=== PATIENT | female | born 1990 | race Caucasian/White ===

== ENCOUNTER 2017-05-08 15:32 | Emergency (ER) | payer MEDICAID ==
--- NOTE | 2017-05-08 17:14 | RAD REPORT ---
EXAM DESCRIPTION: CT - Head Brain Wo Cont - 05/08/2017 4:57 pm CLINICAL HISTORY: Headache COMPARISON: None. TECHNIQUE: Computed axial tomography of the head was obtained. IV contrast was not requested. All CT scans are performed using dose optimization technique as appropriate and may include automated exposure control or mA/KV adjustment according to patient size. FINDINGS: An intracranial bleed is not seen . The ventricles are normal in caliber. No extra-axial fluid collection is noted. Fluid within the sinuses/ mastoids is not seen. IMPRESSION: No acute intracranial abnormality is seen. If patient's symptoms persist MRI of the bra in would be recommended.
[2017-05-08] MEDS ORDERED: DIPHENHYDRAMINE 50 MG/ML VIAL ONE (17:40)
[2017-05-08] MEDS ORDERED: KETOROLAC 30 MG/ML INJ ONE (17:40)
[2017-05-08] MEDS ORDERED: METOCLOPRAMIDE 10 MG/2mL INJ ONE (17:40)
[2017-05-08 17:41] LABS: Urine Blood NEGATIVE (NEG); Urine Glucose NEGATIVE (NEG); Urine Protein NEGATIVE (NEG); Urine Specific Gravity 1.025 (1.005-1.030)
--- NOTE | 2017-05-08 18:48 | ER ---
Nurse's Notes [facility] Name: Omayra Parra Age: 26 yrs Sex: Female : 1990 Arrival Date: 05/08/2017 Time: 15:36 Bed 18 Private MD: Diagnosis: Migraine Presentation: 05/08 15:52 Presenting complaint: Patient states: Headache, N/V since this AM. Transition of care: aj patient was not received from another setting of care. Onset of symptoms was May 08, 2017. Care prior to arrival: None. 15:52 Method Of Arrival: Ambulatory 15:52 Acuity: GAYE 4 Triage Assessment: 15:54 General: Appears in no apparent distress. comfortable, Behavior is calm, cooperative, aj appropriate for age. Pain: Complains of pain in face and scalp Pain currently is 10 out of 10 on a pain scale. Neuro: Level of Consciousness is awake, alert, obeys commands, Oriented to person, place, time, situation, Reports headache. Respiratory: Airway is patent Respiratory effort is even, unlabored, Respiratory pattern is regular, symmetrical. GI: Reports nausea, vomiting. Derm: Skin is intact, is healthy with good turgor, Skin is pink, warm \T\ dry. normal. 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 - Social history:: Smoking status: Patient/guardian denies using tobacco. Screenin:02 Abuse screen: Denies threats or abuse. Denies injuries from another. Nutritional ph screening: No deficits noted. Tuberculosis screening: No symptoms or risk factors identified. Fall Risk None identified. Assessment: 16:30 General: Appears in no apparent distress. uncomfortable, obese, Behavior is calm, ph cooperative, appropriate for age, Denies fever, feeling ill. Pain: Complains of pain in top of head, forehead, right tenriism and left tenriism Pain currently is 10 out of 10 on a pain scale. Neuro: Level of Consciousness is awake, alert, obeys commands, Oriented to person, place, time, situation, Reports dizziness, headache. Cardiovascular: Capillary refill < 3 seconds Patient's skin is warm and dry. Respiratory: Airway is patent Respiratory effort is even, unlabored. GI: Abdomen is round non-distended, Reports nausea, Patient currently denies abdominal pain, diarrhea, vomiting. Derm: Skin is intact, is healthy with good turgor, Skin is pink, warm \T\ dry. Musculoskeletal: Circulation, motion, and sensation intact. Range of motion: intact in all extremities. 18:00 Reassessment: Patient appears in no apparent distress at this time. Patient and/or ph family updated on plan of care and expected duration. Pain level reassessed. Patient is alert, oriented x 3, equal unlabored respirations, skin warm/dry/pink. 19:12 Reassessment: Patient appears in no apparent distress at this time. Patient and/or ph family updated on plan of care and expected duration. Pain level reassessed. Patient is alert, oriented x 3, equal unlabored respirations, skin warm/dry/pink. Pt reports that pain has decreased to 4/10, denies nausea, discharged home. Vital Signs: 15:54 BP 142 / 95; Pulse 86; Resp 17; Temp 97.4; Pulse Ox 98% on R/A; Weight 108.86 kg; aj Height 5 ft. 2 in. (157.48 cm); Pain 10/10; 17:50 BP 136 / 87; Pulse 84; Resp 18; Pulse Ox 99% on R/A; Pain 10/10; ph 19:12 BP 127 / 87; Pulse 78; Resp 18; Temp 98.2; Pulse Ox 99% on R/A; ph 15:54 Body Mass Index 43.90 (108.86 kg, 157.48 cm) ED Course: 15:36 Patient arrived in ED. mr 15:53 Triage completed. aj 15:54 Arm band placed on right wrist. Patient placed in waiting room, Patient notified of wait time. 16:14 Marilou Christie, SUSAN is Primary Nurse. ph 16:20 Jayson Meehan NP is PHCP. pm1 16:20 Jasbir Coleman MD is Attending Physician. pm1 16:54 CT completed. Patient tolerated procedure well. Patient moved to CT via wheelchair. vr Patient moved back from CT. 16:57 CT Head Brain wo Cont In Process Unspecified. EDMS 17:35 Inserted saline lock: 20 gauge in left antecubital area, using aseptic technique. ss 18:02 No provider procedures requiring assistance completed. ph 18:03 Patient has correct armband on for positive identification. Bed in low position. Call ph light in reach. Side rails up X 1. Pulse ox on. NIBP on. Door closed. Lights dimmed. Warm blanket given. 19:13 IV discontinued, intact, bleeding controlled, No redness/swelling at site. Pressure ph dressing applied. Administered Medications: 07:48 Drug: TORadol 30 mg Route: IVP; Site: left antecubital; ph 19:11 Follow up: Response: No adverse reaction; Pain is decreased ph 17:45 Drug: Reglan 10 mg Route: IVP; Site: left antecubital; ph 19:11 Follow up: Response: No adverse reaction; Pain is decreased ph 17:47 Drug: Benadryl 25 mg Route: IVP; Site: left antecubital; ph 19:11 Follow up: Response: No adverse reaction; Pain is decreased ph Outcome: 18:47 Discharge ordered by MD. pm1 19:13 Discharged to home ambulatory. ph 19:13 Condition: good 19:13 Discharge instructions given to patient, Instructed on discharge instructions, follow up and referral plans. medication usage, Demonstrated understanding of instructions, follow-up care, medications, Prescriptions given X 2. 19:13 Patient left the ED. ph Signatures: Dispatcher [employer] EDMS Mary Allison RN RN aj Rivera, Maria mr Smirch, Shelby, RN RN ss Davis, Victoria vr Hall, Patricia, RN RN ph Marinas, Patrick, BENITO LEG MAN pm1 Corrections: (The following items were deleted from the chart) 17:59 07:45 Reglan 10 mg IVP in left antecubital ph ph
--- NOTE | 2017-05-08 18:48 | EDPHYS ---
Physician Documentation [facility] Name: Omayra Parra Age: 26 yrs Sex: Female : 1990 Arrival Date: 05/08/2017 Time: 15:36 Bed 18 Private MD: ED Physician Jasbir Coleman HPI: 05/08 18:00 This 26 yrs old Female presents to ER via Ambulatory with complaints of pm1 Nausea, Decreased Appetite, Headache. 18:00 The patient complains of pain to the forehead. The patient describes the headache as pm1 aching, constant. Onset: The symptoms/episode began/occurred yesterday. Associated signs and symptoms: Pertinent positives: nausea, vomiting, Pertinent negatives: fever, neck stiffness, paresthesias, Photophobia sinus congestion, sinus tenderness, weakness. Severity of symptoms: in the emergency department the pain is actually worse. Headache History: The patient has had previous headaches and this one is different than previous episodes. The symptoms are alleviated by nothing. the symptoms are aggravated by nothing. The patient has not recently seen a physician. Patient with migraine headache that is different than her prior migraines. Usually she can sleep them off with ibuprofen. Patient also complaining of decreased appetite due to nausea and vomiting with headache. Also reports generalized body aches. 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 - Social history:: Smoking status: Patient/guardian denies using tobacco. ROS: 18:00 Constitutional: Negative for fever, chills, and weight loss, Eyes: Negative for injury, pm1 pain, redness, and discharge, ENT: Negative for injury, pain, and discharge, Neck: Negative for injury, pain, and swelling, Cardiovascular: Negative for chest pain, palpitations, and edema, Respiratory: Negative for shortness of breath, cough, wheezing, and pleuritic chest pain, Back: Negative for injury and pain. 18:00 : Negative for injury, bleeding, discharge, and swelling, MS/Extremity: Negative for injury and deformity, Skin: Negative for injury, rash, and discoloration. 18:00 Abdomen/GI: Positive for nausea and vomiting, Negative for abdominal pain, diarrhea. 18:00 Neuro: Positive for headache, Negative for numbness, tingling, weakness. Exam: 18:00 Constitutional: This is a well developed, well nourished patient who is awake, alert, pm1 and in no acute distress. Head/Face: Normocephalic, atraumatic. Eyes: Pupils equal round and reactive to light, extra-ocular motions intact. Lids and lashes normal. Conjunctiva and sclera are non-icteric and not injected. Cornea within normal limits. Periorbital areas with no swelling, redness, or edema. ENT: Nares patent. No nasal discharge, no septal abnormalities noted. Tympanic membranes are normal and external auditory canals are clear. Oropharynx with no redness, swelling, or masses, exudates, or evidence of obstruction, uvula midline. Mucous membranes moist. Neck: Trachea midline, no thyromegaly or masses palpated, and no cervical lymphadenopathy. Supple, full range of motion without nuchal rigidity, or vertebral point tenderness. No Meningismus. Chest/axilla: Normal chest wall appearance and motion. Nontender with no deformity. No lesions are appreciated. Cardiovascular: Regular rate and rhythm with a normal S1 and S2. No gallops, murmurs, or rubs. Normal PMI, no JVD. No pulse deficits. Respiratory: Lungs have equal breath sounds bilaterally, clear to auscultation and percussion. No rales, rhonchi or wheezes noted. No increased work of breathing, no retractions or nasal flaring. Abdomen/GI: Soft, non-tender, with normal bowel sounds. No distension or tympany. No guarding or rebound. No evidence of tenderness throughout. Back: No spinal tenderness. No costovertebral tenderness. Full range of motion. Skin: Warm, dry with normal turgor. Normal color with no rashes, no lesions, and no evidence of cellulitis. MS/ Extremity: Pulses equal, no cyanosis. Neurovascular intact. Full, normal range of motion. 18:00 Neuro: Orientation: is normal, Mentation: is normal, Cranial nerves: CN II- XII are normal as tested, Cerebellar function: normal finger to nose testing, Motor: moves all fours, strength is normal, strength is 5/5 in all extremities, Sensation: is normal, no obvious gross deficits. Vital Signs: 15:54 BP 142 / 95; Pulse 86; Resp 17; Temp 97.4; Pulse Ox 98% on R/A; Weight 108.86 kg; aj Height 5 ft. 2 in. (157.48 cm); Pain 10/10; 17:50 BP 136 / 87; Pulse 84; Resp 18; Pulse Ox 99% on R/A; Pain 10/10; ph 19:12 BP 127 / 87; Pulse 78; Resp 18; Temp 98.2; Pulse Ox 99% on R/A; ph 15:54 Body Mass Index 43.90 (108.86 kg, 157.48 cm) aj MDM: 16:20 Patient medically screened. pm1 18:46 Data reviewed: vital signs. Data interpreted: Pulse oximetry: on room air is 99 %. pm1 Interpretation: normal. Counseling: I had a detailed discussion with the patient and/or guardian regarding: the historical points, exam findings, and any diagnostic results supporting the discharge/admit diagnosis, lab results, radiology results, the need for outpatient follow up, to return to the emergency department if symptoms worsen or persist or if there are any questions or concerns that arise at home. 05/08 16:47 Order name: Flu; Complete Time: 18:21 pm1 05/08 16:47 Order name: Strep; Complete Time: 18:21 pm1 05/08 16:47 Order name: CT Head Brain wo Cont; Complete Time: 17:19 pm1 05/08 17:32 Order name: Urine Dipstick--Ancillary (enter results); Complete Time: 18:21 bd 05/08 17:32 Order name: Urine --Ancillary (enter results); Complete Time: 18:21 bd 05/08 17:38 Order name: Throat Culture EDMS 05/08 16:47 Order name: Urine Dipstick-Ancillary (obtain specimen); Complete Time: 17:43 pm1 05/08 16:47 Order name: Urine Test (obtain specimen); Complete Time: 17:43 pm1 05/08 16:47 Order name: IV Saline Lock; Complete Time: 17:43 pm1 Administered Medications: 07:48 Drug: TORadol 30 mg Route: IVP; Site: left antecubital; ph 19:11 Follow up: Response: No adverse reaction; Pain is decreased ph 17:45 Drug: Reglan 10 mg Route: IVP; Site: left antecubital; ph 19:11 Follow up: Response: No adverse reaction; Pain is decreased ph 17:47 Drug: Benadryl 25 mg Route: IVP; Site: left antecubital; ph 19:11 Follow up: Response: No adverse reaction; Pain is decreased ph Disposition: 05/09 07:39 Co-signature as Attending Physician, Jasbir Coleman MD I agree with the assessment and [facility] plan of care. Disposition: 05/08/17 18:47 Discharged to Home. Impression: Migraine. - Condition is Stable. - Discharge Instructions: Migraine Headache. - Prescriptions for Fiorinal 50- 325-40 mg Oral Capsule - take 1 capsule by ORAL route every 4 hours As needed - not to exceed 6 capsules per day; 20 capsule. Zofran 4 mg Oral Tablet - take 1 tablet by ORAL route every 8 hours As needed; 20 tablet. - Medication Reconciliation Form, Thank You Letter, Prescription Opioid Use form. - Follow up: Emergency Department; When: As needed; Reason: Worsening of condition. Follow up: Private Physician; When: 2 - 3 days; Reason: Recheck today's complaints, Continuance of care, Re-evaluation by your physician. - Problem is new. - Symptoms have improved. Signatures: Dispatcher [employer] Mary Kenney RN RN aj Anderson, Corey, MD MD cha Hall, Patricia, RN RN ph Marinas, Patrick, BENITO INTERNATIONAL TAX MANAGER pm1
[2017-05-08 19:21] VITALS: O2SAT 99
[2017-05-08 19:22] VITALS: BP 127/87; TEMP 98.2
== END 2017-05-08 19:13 | disposition home or self-care (01) ==
LOC: ER 15:32
DX: G43.909 Migraine, unspecified, not intractable, without status migrainosus (principal)
CPT/HCPCS: 70450; 81003; 81025; 87070; 87081; 87804; 96374; 96375; 99284; J2765

== ENCOUNTER 2017-06-06 19:01 | Emergency (ER) | payer MEDICAID ==
--- NOTE | 2017-06-06 20:48 | ER ---
Nurse's Notes [facility] Name: Omayra Parra Age: 26 yrs Sex: Female : 1990 Arrival Date: 06/06/2017 Time: 19:03 Bed 9 Private MD: Abdullahi Guan E Diagnosis: Viral infection, unspecified Presentation: 06/06 19:05 Presenting complaint: Patient states: Nausea that started this AM. Transition of care: aj patient was not received from another setting of care. Onset of symptoms was June 06, 2017. Initial Sepsis Screen: Does the patient meet any 2 criteria? No. Patient's initial sepsis screen is negative. Does the patient have a suspected source of infection? No. Patient's initial sepsis screen is negative. Care prior to arrival: None. 19:05 Method Of Arrival: Ambulatory 19:05 Acuity: GAYE 4 Triage Assessment: 19:07 General: Appears in no apparent distress. comfortable, Behavior is calm, cooperative, aj appropriate for age. Pain: Complains of pain in umbilical area Pain currently is 8 out of 10 on a pain scale. Neuro: Level of Consciousness is awake, alert, obeys commands, Oriented to person, place, time, situation, Appropriate for age. Respiratory: Airway is patent Trachea midline Respiratory effort is even, unlabored, Respiratory pattern is regular, symmetrical. GI: Reports upper abdominal pain, nausea. Derm: Skin is intact, is healthy with good turgor, Skin is pink, warm \T\ dry. normal. 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 - Social history:: Smoking status: Patient/guardian denies using tobacco. Screenin:29 Abuse screen: Denies threats or abuse. Denies injuries from another. Nutritional aa1 screening: No deficits noted. Tuberculosis screening: No symptoms or risk factors identified. Fall Risk None identified. Assessment: 20:29 General: Appears in no apparent distress. comfortable, Behavior is calm, cooperative, aa1 appropriate for age. Pain: Denies pain. Neuro: Level of Consciousness is awake, alert, obeys commands, Oriented to person, place, time, situation, Moves all extremities. Full function Gait is steady, Speech is normal. Respiratory: Airway is patent Respiratory effort is even, unlabored, Respiratory pattern is regular, symmetrical. GI: Abdomen is obese, Abd is soft and non tender X 4 quads. Reports nausea, Patient currently denies constipation, diarrhea, vomiting. : No signs and/or symptoms were reported regarding the genitourinary system. EENT: No signs and/or symptoms were reported regarding the EENT system. Derm: Skin is intact, is healthy with good turgor, Skin is pink, warm \T\ dry. Musculoskeletal: Circulation, motion, and sensation intact. Capillary refill < 3 seconds. 21:05 Reassessment: Patient appears in no apparent distress at this time. Patient is alert, aa1 oriented x 3, equal unlabored respirations, skin warm/dry/pink. Discussed d/c \T\ f/u instructions with pt; denies questions or concerns at this time. Vital Signs: 19:07 BP 141 / 84; Pulse 90; Resp 16; Temp 98.8; Pulse Ox 99% on R/A; Weight 113.4 kg; Height aj 5 ft. 2 in. (157.48 cm); Pain 8/10; 20:29 BP 122 / 77; Pulse 82; Resp 18; Pulse Ox 100% on R/A; aa1 21:05 BP 123 / 75; Pulse 79; Resp 16; Temp 98.7; Pulse Ox 100% on R/A; Pain 0/10; aa1 19:07 Body Mass Index 45.73 (113.40 kg, 157.48 cm) aj ED Course: 19:03 Patient arrived in ED. mr 19:04 Fidel Willams MD is Private Physician. mr 19:04 Abdullahi Guan MD is Private Physician. mr 19:06 Triage completed. aj 19:07 Arm band placed on left wrist. Patient placed in waiting room, Patient notified of wait aj time. 20:20 Sparkle Salas FNP-C is [facility]. snw 20:20 Jasbir Coleman MD is Attending Physician. snw 20:29 Mayes, Domi, RN is Primary Nurse. aa1 20:29 Patient has correct armband on for positive identification. Bed in low position. Call aa1 light in reach. Pulse ox on. NIBP on. Warm blanket given. 20: Urine collected: clean catch specimen, Strep swab sent to lab. aa1 20:47 Abdullahi Guan MD is Referral Physician. snw 21:05 No provider procedures requiring assistance completed. Patient did not have IV access aa1 during this emergency room visit. Administered Medications: :04 Drug: Zofran 4 mg Route: PO; aa1 21:05 Follow up: Response: Medication administered at discharge. aa1 Outcome: :47 Discharge ordered by . snw 21: Discharged to home ambulatory. aa1 21:05 Condition: good 21: Discharge instructions given to patient, Instructed on discharge instructions, follow up and referral plans. Demonstrated understanding of instructions, follow-up care, medications, Prescriptions given X 3. 21:06 Patient left the ED. aa1 Signatures: Domi Orosco RN SUSAN aa1 Mary Allison RN RN aj Therrien, Shelly, GUILLOTINE TRIMMER-C GUILLOTINE TRIMMER-Csnw Shraddha Schmid mr
--- NOTE | 2017-06-06 20:48 | EDPHYS ---
Physician Documentation [facility] Name: Omayra Parra Age: 26 yrs Sex: Female : 1990 Arrival Date: 06/06/2017 Time: 19:03 Bed 9 Private MD: Abdullahi Guan E ED Physician Jasbir Coleman HPI: 06/06 20:50 This 26 yrs old Female presents to ER via Ambulatory with complaints of snw Nausea, Headache. 20:50 The patient presents to the emergency department with nausea, that is moderate. Onset: snw The symptoms/episode began/occurred 2 day(s) ago, and became persistent. Possible causes: unknown. The symptoms are aggravated by nothing. Associated signs and symptoms: Pertinent positives: nausea, headache, congestion. Severity of symptoms: At their worst the symptoms were moderate. It is unknown whether or not the patient has had similar symptoms in the past. It is unknown whether or not the patient has recently seen a physician. 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 - Social history:: Smoking status: Patient/guardian denies using tobacco. ROS: 20:49 Eyes: Negative for injury, pain, redness, and discharge, ENT: Negative for injury, snw pain, and discharge, Neck: Negative for injury, pain, and swelling, Cardiovascular: Negative for chest pain, palpitations, and edema, Respiratory: Negative for shortness of breath, cough, wheezing, and pleuritic chest pain, Abdomen/GI: Negative for abdominal pain, vomiting, diarrhea, and constipation, + nausea Back: Negative for injury and pain, : Negative for injury, bleeding, discharge, and swelling, MS/Extremity: Negative for injury and deformity, Skin: Negative for injury, rash, and discoloration. 20:49 Constitutional: Positive for body aches, fatigue, malaise, poor PO intake. 20:49 Neuro: Positive for headache. Exam: 20:48 Constitutional: This is a well developed, well nourished patient who is awake, alert, snw and in no acute distress. Head/Face: Normocephalic, atraumatic. Eyes: Pupils equal round and reactive to light, extra-ocular motions intact. Lids and lashes normal. Conjunctiva and sclera are non-icteric and not injected. Cornea within normal limits. Periorbital areas with no swelling, redness, or edema. ENT: Nares patent. No nasal discharge, no septal abnormalities noted. Tympanic membranes are normal and external auditory canals are clear. Oropharynx with no redness, swelling, or masses, exudates, or evidence of obstruction, uvula midline. Mucous membranes moist. Neck: Trachea midline, no thyromegaly or masses palpated, and no cervical lymphadenopathy. Supple, full range of motion without nuchal rigidity, or vertebral point tenderness. No Meningismus. Chest/axilla: Normal chest wall appearance and motion. Nontender with no deformity. No lesions are appreciated. Cardiovascular: Regular rate and rhythm with a normal S1 and S2. No gallops, murmurs, or rubs. Normal PMI, no JVD. No pulse deficits. Respiratory: Lungs have equal breath sounds bilaterally, clear to auscultation and percussion. No rales, rhonchi or wheezes noted. No increased work of breathing, no retractions or nasal flaring. 20:48 Back: No spinal tenderness. No costovertebral tenderness. Full range of motion. MS/ Extremity: Pulses equal, no cyanosis. Neurovascular intact. Full, normal range of motion. Neuro: Awake and alert, GCS 15, oriented to person, place, time, and situation. Cranial nerves II-XII grossly intact. Motor strength 5/5 in all extremities. Sensory grossly intact. Cerebellar exam normal. Normal gait. 20:48 Abdomen/GI: Inspection: obese Bowel sounds: hyperactive, Palpation: abdomen is soft and non-tender. 20:48 Skin: Appearance: Color: pale. Vital Signs: 19:07 BP 141 / 84; Pulse 90; Resp 16; Temp 98.8; Pulse Ox 99% on R/A; Weight 113.4 kg; Height aj 5 ft. 2 in. (157.48 cm); Pain 8/10; 20:29 BP 122 / 77; Pulse 82; Resp 18; Pulse Ox 100% on R/A; aa1 21:05 BP 123 / 75; Pulse 79; Resp 16; Temp 98.7; Pulse Ox 100% on R/A; Pain 0/10; aa1 19:07 Body Mass Index 45.73 (113.40 kg, 157.48 cm) aj MDM: 20:25 Patient medically screened. snw 20:49 Data reviewed: vital signs, nurses notes. Data interpreted: Pulse oximetry: on room air snw is 100 %. Interpretation: normal. Counseling: I had a detailed discussion with the patient and/or guardian regarding: the historical points, exam findings, and any diagnostic results supporting the discharge/admit diagnosis, the need for outpatient follow up, to return to the emergency department if symptoms worsen or persist or if there are any questions or concerns that arise at home. Special discussion: Based on the history and exam findings, there is no indication for further emergent testing or inpatient evaluation. I discussed with the patient/guardian the need to see the primary care provider for further evaluation of the symptoms. 06/06 19:34 Order name: Urine Dipstick--Ancillary (enter results) [facility] 06/06 19:34 Order name: Urine --Ancillary (enter results) [facility] 06/06 19:34 Order name: Strep; Complete Time: 20:46 snw 06/06 20:45 Order name: Throat Culture EDMS Administered Medications: 21:04 Drug: Zofran 4 mg Route: PO; aa1 21:05 Follow up: Response: Medication administered at discharge. aa1 Disposition: 06/07 08:14 Co-signature as Attending Physician, Jasbir Coleman MD I agree with the assessment and ren plan of care. Disposition: 06/06/17 20:47 Discharged to Home. Impression: Viral infection, unspecified. - Condition is Stable. - Discharge Instructions: Fever, Adult, Viral Infections, Rehydration, Adult. - Prescriptions for Zofran 4 mg Oral Tablet - take 1 tablet by ORAL route every 12 hours As needed; 6 tablet. Diclofenac Sodium 75 mg Oral Tablet Sustained Release - take 1 tablet by ORAL route 2 times per day; 30 tablet. orphenadrine citrate 100 mg Oral Tablet Sustained Release - take 1 tablet by ORAL route 2 times per day As needed; 20 tablet. - Work release form, Medication Reconciliation Form, Thank You Letter, Antibiotic Education, Prescription Opioid Use form. - Follow up: Abdullahi Guan MD; When: 1 week; Reason: Recheck today's complaints, Continuance of care, Re-evaluation by your physician. Follow up: Emergency Department; When: As needed; Reason: Worsening of condition. Signatures: Dispatcher [employer] EDMS Domi Orosco RN RN aa1 Mary Allison RN RN aj Anderson, Corey, MD MD cha Therrien, Shelly, [employer] Corrections: (The following items were deleted from the chart) 06/06 21:06 20:47 06/06/2017 20:47 Discharged to Home. Impression: Viral infection, unspecified. aa1 Condition is Stable. Forms are Medication Reconciliation Form, Thank You Letter, Antibiotic Education, Prescription Opioid Use. Follow up: Abdullahi Guan; When: 1 week; Reason: Recheck today's complaints, Continuance of care, Re-evaluation by your physician. Follow up: Emergency Department; When: As needed; Reason: Worsening of condition. snw
[2017-06-06] MEDS ORDERED: ONDANSETRON 4 MG (ODT) TAB ONE (21:00)
[2017-06-06 21:23] VITALS: O2SAT 100
[2017-06-06 21:25] VITALS: BP 123/75; TEMP 98.7
[2017-06-06 22:25] LABS: Urine Blood TRACE (NEG); Urine Glucose NEGATIVE (NEG); Urine Protein NEGATIVE (NEG); Urine Specific Gravity >1.030 (1.005-1.030); Urine pH 5.5 (5.0-7.0)
== END 2017-06-06 21:06 | disposition home or self-care (01) ==
LOC: ER 19:01
DX: B34.9 Viral infection, unspecified (principal)
CPT/HCPCS: 81003; 81025; 87070; 87081; 99284

== ENCOUNTER 2017-07-02 12:47 | Emergency (ER) | payer MEDICAID ==
[2017-07-02] MEDS ORDERED: FAMOTIDINE 20 MG TAB ONE (13:53)
[2017-07-02] MEDS ORDERED: ONDANSETRON 4 MG (ODT) TAB ONE (13:53)
--- NOTE | 2017-07-02 15:30 | EDPHYS ---
Physician Documentation [facility] Name: Omayra Parra Age: 26 yrs Sex: Female : 1990 Arrival Date: 07/02/2017 Time: 12:50 Bed 26 Private MD: Abdullahi Guan E ED Physician Vick Segura HPI: 07/02 16:50 This 26 yrs old Female presents to ER via Ambulatory with complaints of gs Nausea, Decreased Appetite. 16:50 The patient presents to the emergency department with nausea, that is mild. Onset: The gs symptoms/episode began/occurred this morning. Possible causes: unknown. The symptoms are aggravated by nothing. The symptoms are alleviated by nothing. Associated signs and symptoms: Pertinent positives: bodyaches, low grade fever, flu symptoms. Severity of symptoms: At their worst the symptoms were mild in the emergency department the symptoms are unchanged. The patient has experienced similar episodes in the past, a few times. 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 - Social history:: Smoking status: Patient/guardian denies using tobacco, the patient reports quitting approximately .5 years ago. - Ebola Screening: : Patient denies exposure to infectious person Patient denies travel to an Ebola-affected area in the 21 days before illness onset. ROS: 16:50 All other systems are negative. gs Exam: 16:50 Head/Face: Normocephalic, atraumatic. Eyes: Pupils equal round and reactive to light, gs extra-ocular motions intact. Lids and lashes normal. Conjunctiva and sclera are non-icteric and not injected. Cornea within normal limits. Periorbital areas with no swelling, redness, or edema. ENT: Nares patent. No nasal discharge, no septal abnormalities noted. Tympanic membranes are normal and external auditory canals are clear. Oropharynx with no redness, swelling, or masses, exudates, or evidence of obstruction, uvula midline. Mucous membranes moist. Neck: Trachea midline, no thyromegaly or masses palpated, and no cervical lymphadenopathy. Supple, full range of motion without nuchal rigidity, or vertebral point tenderness. No Meningismus. Chest/axilla: Normal chest wall appearance and motion. Nontender with no deformity. No lesions are appreciated. Cardiovascular: Regular rate and rhythm with a normal S1 and S2. No gallops, murmurs, or rubs. Normal PMI, no JVD. No pulse deficits. Respiratory: Lungs have equal breath sounds bilaterally, clear to auscultation and percussion. No rales, rhonchi or wheezes noted. No increased work of breathing, no retractions or nasal flaring. Abdomen/GI: Soft, non-tender, with normal bowel sounds. No distension or tympany. No guarding or rebound. No evidence of tenderness throughout. Back: No spinal tenderness. No costovertebral tenderness. Full range of motion. Skin: Warm, dry with normal turgor. Normal color with no rashes, no lesions, and no evidence of cellulitis. MS/ Extremity: Pulses equal, no cyanosis. Neurovascular intact. Full, normal range of motion. Neuro: Awake and alert, GCS 15, oriented to person, place, time, and situation. Cranial nerves II-XII grossly intact. Motor strength 5/5 in all extremities. Sensory grossly intact. Cerebellar exam normal. Normal gait. 16:50 Constitutional: The patient appears alert, awake. Vital Signs: 13:24 BP 127 / 74; Pulse 95; Resp 15; Temp 98.4(O); Pulse Ox 100% on R/A; Weight 113.4 kg; ss Height 5 ft. 2 in. (157.48 cm); Pain 0/10; 16:01 BP 115 / 85; Pulse 97; Resp 17; Pulse Ox 99% on R/A; kr2 13:24 Body Mass Index 45.73 (113.40 kg, 157.48 cm) MDM: 13:39 Patient medically screened. gs 16:50 Differential diagnosis: , uti, flu. Data reviewed: vital signs, nurses notes. gs Response to treatment: the patient's symptoms have markedly improved after treatment, and as a result, I will discharge patient. 07/02 13:41 Order name: Urine Microscopic Only; Complete Time: 16:53 gs 07/02 15:31 Order name: Urine Dipstick--Ancillary (enter results); Complete Time: 16:53 07/02 15:31 Order name: Urine --Ancillary (enter results); Complete Time: 16:53 07/02 13:41 Order name: Urine Dipstick-Ancillary (obtain specimen); Complete Time: 13:51 07/02 13:41 Order name: Urine Test (obtain specimen); Complete Time: 13:51 Administered Medications: 13:54 Drug: Zofran 4 mg Route: PO; kr2 15:59 Follow up: Response: No adverse reaction kr2 13:54 Drug: Pepcid 20 mg Route: PO; kr2 15:59 Follow up: Response: No adverse reaction kr2 16:00 CANCELLED (ordered in error): Tylenol 650 mg PO once kr2 Disposition: 07/02/17 15:29 Discharged to Home. Impression: Nausea and vomiting. - Condition is Stable. - Discharge Instructions: Viral Infections, Nausea and Vomiting, [id number]. - Prescriptions for Pepcid 20 mg Oral Tablet - take 1 tablet by ORAL route every 12 hours for 10 days; 20 tablet. Zofran 4 mg Oral Tablet - take 1 tablet by ORAL route every 12 hours As needed; 6 tablet. - Medication Reconciliation Form, Thank You Letter, Antibiotic Education, Prescription Opioid Use, Work release form form. - Follow up: Private Physician; When: 2 - 3 days; Reason: Re-evaluation by your physician. Signatures: Dispatcher [employer] EDSC Rachell Rodriguez RN RN Vick Segura MD MD Elisha Murray RN RN kr2 Corrections: (The following items were deleted from the chart) 16:00 15:47 Tylenol 650 mg PO once ordered. kr2 16:03 15:29 07/02/2017 15:29 Discharged to Home. Impression: Nausea and vomiting. Condition kr2 is Stable. Forms are Medication Reconciliation Form, Thank You Letter, Antibiotic Education, Prescription Opioid Use. Follow up: Private Physician; When: 2 - 3 days; Reason: Re-evaluation by your physician.
--- NOTE | 2017-07-02 15:30 | ER ---
Nurse's Notes [facility] Name: Omayra Parra Age: 26 yrs Sex: Female : 1990 Arrival Date: 07/02/2017 Time: 12:50 Bed 26 Private MD: Abdullahi Guan E Diagnosis: Nausea and vomiting Presentation: 07/02 13:21 Presenting complaint: Patient states: nausea and fatigue that began yesterday, is much ss worse today. Denies pain. Transition of care: patient was not received from another setting of care. Onset of symptoms was July 01, 2017. Risk Assessment: Do you want to hurt yourself or someone else? Patient reports no desire to harm self or others. Initial Sepsis Screen: Does the patient meet any 2 criteria? No. Patient's initial sepsis screen is negative. Does the patient have a suspected source of infection? No. Patient's initial sepsis screen is negative. Care prior to arrival: None. 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 - Social history:: Smoking status: Patient/guardian denies using tobacco, the patient reports quitting approximately .5 years ago. - Ebola Screening: : Patient denies exposure to infectious person Patient denies travel to an Ebola-affected area in the 21 days before illness onset. Screenin:48 Abuse screen: Denies threats or abuse. Denies injuries from another. Nutritional kr2 screening: No deficits noted. Tuberculosis screening: No symptoms or risk factors identified. Fall Risk None identified. Assessment: 13:30 General: Appears in no apparent distress. uncomfortable, well groomed, well developed, kr2 well nourished, Behavior is calm, cooperative, appropriate for age. Pain: Denies pain. Neuro: Level of Consciousness is awake, alert, obeys commands. Cardiovascular: Capillary refill < 3 seconds in bilateral fingers Patient's skin is warm and dry. Respiratory: Airway is patent Respiratory effort is even, unlabored, Respiratory pattern is regular, symmetrical. GI: Abdomen is flat, non-distended, Bowel sounds present X 4 quads. Abd is soft and non tender X 4 quads. Reports nausea. : Urine is clear. EENT: Oral mucosa is moist. Derm: Skin is intact, is healthy with good turgor, Skin is pink, warm \T\ dry. Musculoskeletal: Circulation, motion, and sensation intact. 14:30 Reassessment: Patient appears in no apparent distress at this time. Patient and/or kr2 family updated on plan of care and expected duration. Pain level reassessed. Patient is alert, oriented x 3, equal unlabored respirations, skin warm/dry/pink. Patient denies pain at this time. 15:30 Reassessment: Patient appears in no apparent distress at this time. Patient and/or kr2 family updated on plan of care and expected duration. Pain level reassessed. Patient is alert, oriented x 3, equal unlabored respirations, skin warm/dry/pink. Patient denies pain at this time. Vital Signs: 13:24 BP 127 / 74; Pulse 95; Resp 15; Temp 98.4(O); Pulse Ox 100% on R/A; Weight 113.4 kg; ss Height 5 ft. 2 in. (157.48 cm); Pain 0/10; 16:01 BP 115 / 85; Pulse 97; Resp 17; Pulse Ox 99% on R/A; kr2 13:24 Body Mass Index 45.73 (113.40 kg, 157.48 cm) ED Course: 12:50 Patient arrived in ED. mr 12:50 Abdullahi Guan MD is Private Physician. mr 13:22 Triage completed. ss 13:24 Arm band placed on right wrist. ss 13:30 Vick Segura MD is Attending Physician. gs 13:43 Elisha Murray, SUSAN is Primary Nurse. kr2 14:48 Patient has correct armband on for positive identification. Bed in low position. Call kr2 light in reach. Side rails up X 1. Pulse ox on. NIBP on. Door closed. Warm blanket given. Head of bed elevated. 16:02 No provider procedures requiring assistance completed. Patient did not have IV access kr2 during this emergency room visit. Administered Medications: 13:54 Drug: Zofran 4 mg Route: PO; kr2 15:59 Follow up: Response: No adverse reaction kr2 13:54 Drug: Pepcid 20 mg Route: PO; kr2 15:59 Follow up: Response: No adverse reaction kr2 16:00 CANCELLED (ordered in error): Tylenol 650 mg PO once kr2 Outcome: 15:29 Discharge ordered by . 16:02 Discharged to home via wheelchair, with family. kr2 16:02 Condition: good 16:02 Discharge instructions given to patient, family, Instructed on discharge instructions, follow up and referral plans. medication usage, Demonstrated understanding of instructions, follow-up care, medications, Prescriptions given X 2. 16:03 Patient left the ED. kr2 Signatures: Shraddha Schmid Shelby, RN RN Vick Segura MD MD gs Reaves, Karey, RN RN kr2
[2017-07-02 15:43] LABS: Urine Blood NEGATIVE (NEG); Urine Glucose NEGATIVE (NEG); Urine Protein TRACE (NEG); Urine pH 5.5 (5.0-7.0)
[2017-07-02 15:55] LABS: Urine Amorphous Sediment 3+ /HPF (NONE SEEN); Urine Bacteria <20 /HPF (<20); Urine Culture Reflex Order NOT NEEDED; Urine Mucus 1+ /HPF (NONE SEEN); Urine RBC <5 /HPF (NONE SEEN)
[2017-07-02 16:14] VITALS: TEMP 98.4
[2017-07-02 16:15] VITALS: BP 115/85; O2SAT 99
== END 2017-07-02 16:03 | disposition home or self-care (01) ==
LOC: ER 12:47
DX: R11.2 Nausea with vomiting, unspecified (principal)
CPT/HCPCS: 81003; 81015; 81025; 99283

== ENCOUNTER 2017-08-19 15:11 | Emergency (ER) | payer MEDICAID ==
[2017-08-19] MEDS ORDERED: HYDROCODONE/APAP 10/325 TAB ONE (15:54)
[2017-08-19] MEDS ORDERED: KETOROLAC 30 MG/ML INJ ONE (15:58)
--- NOTE | 2017-08-19 16:51 | RAD REPORT ---
EXAM DESCRIPTION: US - Pelvis Complete - 08/19/2017 4:43 pm CLINICAL HISTORY: Pelvic pain COMPARISON: October 2016 FINDINGS: The evaluation is limited as the bladder is decompressed The uterus measures 9 x 4 x 6 centimeters. The endometrial stripe measures 1.2 centimeters. A fibroid is not seen. The ovaries are normal in size and echotexture. A 2.7 centimeter right ovarian cyst is seen without s ignificant free-fluid IMPRESSION: A 2.7 centimeter right ovarian cyst is seen without significant free-fluid
[2017-08-19 16:58] LABS: Urine Blood 1+ (NEG); Urine Glucose NEGATIVE (NEG); Urine Protein TRACE (NEG)
[2017-08-19] MEDS ORDERED: AZITHROMYCIN 250 MG TAB ONE (17:43)
[2017-08-19] MEDS ORDERED: metroNIDAZOLE 500 MG TABLET ONE (17:44)
[2017-08-19] MEDS ORDERED: CEFTRIAXONE 250 MG/VIAL ONE (17:44)
--- NOTE | 2017-08-19 18:02 | EDPHYS ---
Physician Documentation [facility] Name: Omayra Parra Age: 26 yrs Sex: Female : 1990 Arrival Date: 08/19/2017 Time: 15:14 Bed 13 Private MD: Abdullahi Guan E ED Physician Benjamin Wilson HPI: 08/19 15:49 This 26 yrs old Female presents to ER via Ambulatory with complaints of jmm Pelvic Pain, Hurts To Walk. 15:49 The patient presents with pelvic pain. Onset: The symptoms/episode began/occurred jmm chronic. Modifying factors: The symptoms are alleviated by nothing, the symptoms are aggravated by nothing. Associated signs and symptoms: Pertinent positives: cramping, dysuria, Pertinent negatives: dysuria. This is a 26 year old female with a history of PCOS that presents to the ED with chronic pelvic pain worsening today. The patient states that her urine was pink in color today. Denies fever, vomiting or flank pain. . 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 - Social history:: Smoking status: Patient uses tobacco products, States that she quit smoking 7 months ago, prior to then she smoked 4-5 cigarettes per day. - Ebola Screening: : Patient denies travel to an Ebola-affected area in the 21 days before illness onset. ROS: 15:49 Constitutional: Negative for fever, chills, and weight loss, Cardiovascular: Negative jmm for chest pain, palpitations, and edema, Respiratory: Negative for shortness of breath, cough, wheezing, and pleuritic chest pain, Abdomen/GI: Negative for abdominal pain, nausea, vomiting, diarrhea, and constipation. 15:49 Neuro: Negative for headache, weakness, numbness, tingling, and seizure. 15:49 : Positive for urinary symptoms, pelvic pain, hematuria. 15:49 All other systems are negative. Exam: 15:49 Constitutional: This is a well developed, well nourished patient who is awake, alert, jmm and in no acute distress. Head/Face: atraumatic. Chest/axilla: Normal chest wall appearance and motion. Cardiovascular: Regular rate and rhythm. No edema appreciated Respiratory: Normal respirations, no respiratory distress appreciated Abdomen/GI: Non distended, soft Back: Normal ROM Skin: General appearance color normal MS/ Extremity: Moves all extremities, no obvious deformities appreciated, no edema noted to the lower extremities Neuro: Awake and alert, normal gait Psych: Behavior is normal, Mood is normal, Patient is cooperative and pleasant 16:06 : Pelvic Exam: External exam: is normal, Speculum exam: cervicitis present, os that jmm is closed, bimanual exam reveals left adnexal tenderness, discharge, yellow. Vital Signs: 15:21 BP 148 / 82; Pulse 93; Resp 20; Temp 97.6(TE); Pulse Ox 100% on R/A; Weight 111.13 kg; aj1 Height 5 ft. 2 in. (157.48 cm) (R); Pain 10/10; 16:20 BP 114 / 66; Pulse 71; Resp 19; Pulse Ox 98% on R/A; Pain 7/10; rb1 17:15 BP 118 / 68; Pulse 78; Resp 19; Pulse Ox 100% on R/A; Pain 5/10; rb1 18:12 BP 122 / 94; Pulse 85; Resp 18; Pulse Ox 99% on R/A; rb1 15:21 Body Mass Index 44.81 (111.13 kg, 157.48 cm) aj1 MDM: 15:42 Patient medically screened. [facility] 17:59 Data reviewed: vital signs, nurses notes, lab test result(s), radiologic studies, [facility] ultrasound. Counseling: I had a detailed discussion with the patient and/or guardian regarding: the historical points, exam findings, and any diagnostic results supporting the discharge/admit diagnosis, lab results, radiology results, the need for outpatient follow up, to return to the emergency department if symptoms worsen or persist or if there are any questions or concerns that arise at home. ED course: Patient's symptoms have bene chronic, i do not currently suspect an acute intraabdominal process. Patient has no McBurney pt tenderness, I do not currently suspect appendicitis. Patient will be treated empirically for PID due to pelvic exam findings. Patient is encouraged to follow up with her OBGYN. Patient given return precautions for worsening pain, fever, vomiting. Patient understood and agrees with the plan of care. . 08/19 15:44 Order name: GC (GONORR/CHLAMYDIA) Probe [facility] 08/19 15:48 Order name: Wet Prep; Complete Time: 17:19 [facility] 08/19 15:43 Order name: US Pelvis Complete; Complete Time: 17:58 [facility] 08/19 16:05 Order name: Urine Dipstick--Ancillary (enter results); Complete Time: 17:19 08/19 15:43 Order name: Urine Dipstick-Ancillary (obtain specimen); Complete Time: 16:02 [facility] 08/19 15:43 Order name: Urine Test (obtain specimen); Complete Time: 16:02 [facility] Administered Medications: 16:01 Not Given (Patient Refused; Provider changed order): Dinosaur 10 mg-325 mg 1 tabs PO once rb1 16:02 Drug: TORadol 30 mg Route: IM; Site: right gluteus; rb1 16:20 Follow up: Response: No adverse reaction; Pain is decreased rb1 17:45 Drug: Rocephin (cefTRIAXone) 250 mg Route: IM; Site: left gluteus; rb1 18:17 Follow up: Response: No adverse reaction rb1 17:45 Drug: AZITHromycin 1 grams Route: PO; rb1 18:18 Follow up: Response: No adverse reaction rb1 17:45 Drug: Flagyl 2 grams Route: PO; rb1 18:18 Follow up: Response: No adverse reaction rb1 Disposition: 08/19/17 18:02 Discharged to Home. Impression: Unspecified ovarian cysts, Dysuria, Pelvic Pain. - Condition is Stable. - Discharge Instructions: Dysuria, Ovarian Cyst, Pelvic Pain, Female. - Prescriptions for Cephalexin 500 mg Oral Capsule - take 1 capsule by ORAL route every 12 hours for 10 days; 20 capsule. Ultram 50 mg Oral Tablet - take 1 tablet by ORAL route every 6 hours As needed; 12 tablet. - Medication Reconciliation Form, Thank You Letter, Antibiotic Education, Prescription Opioid Use form. - Follow up: Private Physician; When: 2 - 3 days; Reason: Recheck today's complaints, Continuance of care, Re-evaluation by your physician. Addendum: 08/20/2017 21:25 Co-signature as Attending Physician, Benjamin Wilson MD. m a2 Signatures: Dispatcher [employer] Winnie Lundberg RN RN aj1 Jaron Small PA PA jmm Barber, Rebecca, RN RN rb1 Benjamin Wilson MD MD ma2 Corrections: (The following items were deleted from the chart) 08/19 18:20 18:02 08/19/2017 18:02 Discharged to Home. Impression: Unspecified ovarian cysts; rb1 Dysuria; Pelvic Pain. Condition is Stable. Forms are Medication Reconciliation Form, Thank You Letter, Antibiotic Education, Prescription Opioid Use. Follow up: Private Physician; When: 2 - 3 days; Reason: Recheck today's complaints, Continuance of care, Re-evaluation by your physician. julien
--- NOTE | 2017-08-19 18:02 | ER ---
Nurse's Notes [facility] Name: Omayra Parra Age: 26 yrs Sex: Female : 1990 Arrival Date: 08/19/2017 Time: 15:14 Bed 13 Private MD: Abdullahi Guan E Diagnosis: Unspecified ovarian cysts;Dysuria;Pelvic Pain Presentation: 08/19 15:16 Presenting complaint: Patient states: She started having pelvic pain approximately 30 aj1 minutes ago that is so severe she is having trouble walking. Reports that when she went to urinate it was tinged pink. Reports dysuria, hesitancy. Denies vaginal discharge. Transition of care: patient was not received from another setting of care. Onset of symptoms was August 19, 2017 at 14:50. Risk Assessment: Do you want to hurt yourself or someone else? Patient reports no desire to harm self or others. Initial Sepsis Screen: Does the patient meet any 2 criteria? No. Patient's initial sepsis screen is negative. Does the patient have a suspected source of infection? No. Patient's initial sepsis screen is negative. Care prior to arrival: None. 15:16 Method Of Arrival: Ambulatory aj1 15:16 Acuity: GAYE 3 aj1 Triage Assessment: 15:21 General: Appears in no apparent distress. uncomfortable, Behavior is calm, cooperative, aj1 appropriate for age. Pain: Complains of pain in pelvis Pain currently is 10 out of 10 on a pain scale. Neuro: Level of Consciousness is awake, alert, obeys commands. Cardiovascular: Patient's skin is warm and dry. Respiratory: Airway is patent Respiratory effort is even, unlabored, Respiratory pattern is regular, symmetrical. : Reports burning with urination, Denies discharge. Derm: Skin is pink, warm \T\ dry. normal. 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 - Social history:: Smoking status: Patient uses tobacco products, States that she quit smoking 7 months ago, prior to then she smoked 4-5 cigarettes per day. - Ebola Screening: : Patient denies travel to an Ebola-affected area in the 21 days before illness onset. Screenin:27 Abuse screen: Denies threats or abuse. Nutritional screening: No deficits noted. rb1 Tuberculosis screening: No symptoms or risk factors identified. Fall Risk None identified. Assessment: 15:27 General: Appears uncomfortable, obese, Behavior is calm, cooperative, Denies fever. rb1 Pain: Complains of pain in suprapubic area Pain currently is 10 out of 10 on a pain scale. Pain began gradually. Neuro: Level of Consciousness is awake, alert, obeys commands, Oriented to person, place, time, situation. Cardiovascular: Capillary refill < 3 seconds is brisk in bilateral fingers. Respiratory: Airway is patent Respiratory effort is even, unlabored, Respiratory pattern is regular, symmetrical. GI: Reports nausea. : Reports pain in suprapubic area [place] tinged urine. Derm: Skin is pink, warm \T\ dry. 16:20 Reassessment: Patient appears in no apparent distress at this time. Patient and/or rb1 family updated on plan of care and expected duration. Pain level reassessed. Patient is alert, oriented x 3, equal unlabored respirations, skin warm/dry/pink. 17:20 Reassessment: Patient appears in no apparent distress at this time. Patient and/or rb1 family updated on plan of care and expected duration. Pain level reassessed. Patient is alert, oriented x 3, equal unlabored respirations, skin warm/dry/pink. 18:15 Reassessment: Patient appears in no apparent distress at this time. No changes from rb1 previously documented assessment. Vital Signs: 15:21 BP 148 / 82; Pulse 93; Resp 20; Temp 97.6(TE); Pulse Ox 100% on R/A; Weight 111.13 kg; aj1 Height 5 ft. 2 in. (157.48 cm) (R); Pain 10/10; 16:20 BP 114 / 66; Pulse 71; Resp 19; Pulse Ox 98% on R/A; Pain 7/10; rb1 17:15 BP 118 / 68; Pulse 78; Resp 19; Pulse Ox 100% on R/A; Pain 5/10; rb1 18:12 BP 122 / 94; Pulse 85; Resp 18; Pulse Ox 99% on R/A; rb1 15:21 Body Mass Index 44.81 (111.13 kg, 157.48 cm) aj1 ED Course: 15:14 Patient arrived in ED. sb2 15:15 Abdullahi Guan MD is Private Physician. sb2 15:20 Triage completed. aj1 15:21 Arm band placed on Patient placed in an exam room. aj1 15:26 Estefani Palomo RN is Primary Nurse. rb1 15:27 Patient has correct armband on for positive identification. Placed in gown. Bed in low rb1 position. Call light in reach. Side rails up X 1. Pulse ox on. NIBP on. Warm blanket given. 15:28 Jaron Small PA is PHCP. m 15:28 Benjamin Wilson MD is Attending Physician. jmm 16:19 Ultrasound completed. Patient tolerated well. sg3 16:43 US Pelvis Complete In Process Unspecified. EDMS 18:19 No provider procedures requiring assistance completed. Patient did not have IV access rb1 during this emergency room visit. Administered Medications: 16:01 Not Given (Patient Refused; Provider changed order): [place] 10 mg-325 mg 1 tabs PO once rb1 16:02 Drug: TORadol 30 mg Route: IM; Site: right gluteus; rb1 16:20 Follow up: Response: No adverse reaction; Pain is decreased rb1 17:45 Drug: Rocephin (cefTRIAXone) 250 mg Route: IM; Site: left gluteus; rb1 18:17 Follow up: Response: No adverse reaction rb1 17:45 Drug: AZITHromycin 1 grams Route: PO; rb1 18:18 Follow up: Response: No adverse reaction rb1 17:45 Drug: Flagyl 2 grams Route: PO; rb1 18:18 Follow up: Response: No adverse reaction rb1 Outcome: 18:02 Discharge ordered by . jmm 18:19 Discharged to home ambulatory, with family. rb1 18:19 Condition: stable 18:19 Discharge instructions given to patient, Instructed on discharge instructions, follow up and referral plans. medication usage, Demonstrated understanding of instructions, follow-up care, medications, Prescriptions given X 2. 18:20 Patient left the ED. rb1 Signatures: Dispatcher [employer] EDMS Winnie Lieberman RN RN aj1 Mickail, Jaron, Estefani Lepe, RN RN rb1 Omayra Metz sg3 Bailee Bates sb2
[2017-08-19 18:26] VITALS: TEMP 97.6
[2017-08-19 18:29] VITALS: BP 122/94; O2SAT 99
[2017-08-22 21:33] LABS: C.trachomatis RNA,TMA Not Detected (Not Detected)
== END 2017-08-19 18:20 | disposition home or self-care (01) ==
LOC: ER 15:11
DX: N83.209 Unspecified ovarian cyst, unspecified side (principal)
CPT/HCPCS: 76856; 81003; 87210; 87490; 87590; 96372; 99284; J0696

== ENCOUNTER 2017-08-30 10:32 | Emergency (ER) | payer MEDICAID ==
[2017-08-30 11:47] LABS: Absolute Lymphocytes (CBC) 2.2 K/uL (0.7-4.9); Absolute Monocytes 0.4 K/uL (0.1-1.3); Absolute Neutrophil 5.2 K/uL (1.8-8.0); Eosinophils % 1.4 % (0-4.4); Lymphocytes % 27.1 % (15.3-44.8); MCH 29.2 pg (27.0-35.0); MCV 82.5 fL (80-100); Monocytes % 5.3 % (3.3-12.3)
[2017-08-30] MEDS ORDERED: NA CHLORIDE 0.9% 1,000 ML ONE (11:50)
[2017-08-30 12:02] LABS: Urine Bacteria <20 /HPF (<20); Urine Culture Reflex Order NOT NEEDED; Urine Mucus MOD /HPF (NONE SEEN); Urine RBC <5 /HPF (NONE SEEN)
[2017-08-30 12:05] LABS: ALT/SGPT 21 U/L (12-78); AST/SGOT 13 U/L (15-37); Albumin 3.6 g/dL (3.4-5.0); Alkaline Phosphatase 72 U/L (45-117); BUN Blood Urea Nitrogen 14 mg/dL (7-18); Bicarbonate 28 mmol/L (21-32); Bilirubin Direct 0.2 mg/dL (0-0.2); Bilirubin Total 0.7 mg/dL (0.2-1.0); Glucose Level 91 mg/dL (74-106); Lipase 99 U/L (73-393); Potassium 3.8 mmol/L (3.5-5.1); Protein, Total 7.3 g/dL (6.4-8.2); Sodium Level 142 mmol/L (136-145)
[2017-08-30] MEDS ORDERED: ONDANSETRON 4 MG/2 ML VIAL ONE (12:27)
--- NOTE | 2017-08-30 14:24 | RAD REPORT ---
EXAM DESCRIPTION: CT - Abdomen Pelvis W Contrast - 08/30/2017 1:56 pm CLINICAL HISTORY: Abdominal pain, GI bleed COMPARISON: October 2014 TECHNIQUE: Biphasic, helical CT imaging of the abdomen and pelvis was performed following 100 ml non -ionic IV contrast. Oral contrast was given. All CT scans are performed using dose optimization technique as appropriate and may include automated exposure control or mA/KV adjustment according to patient size. FINDINGS: No suspicious findings in the lung bases. The liver, spleen, and pancreas show no suspicious findings. Gallbladder and biliary tree are also wi thout suspicious finding. Symmetric renal function is seen with no hydronephrosis or suspicious renal mass. No pyelonephritis o r acute renal parenchymal process. Contracted urinary bladder shows no suspicious finding. Uterus and ovaries also normal for age. No gastric dilatation or gastric wall thickening. Contrast and fluid are present within the lumen. No gastric outlet obstruction or delayed peristalsis. Oral CT contrast has reached the transverse colon . No small bowel abnormality seen. Contrast and stool are mixed throughout the nondilated colon. Appe ndix is normal. No colon wall thickening or mass identifiable. No perirectal edema or congestion. A few small mesenteric lymph nodes are present. No free air, free fluid or inflammatory stranding. No hernia, mass or bulky lymphadenopathy. No adre nal abnormality. No suspicious bony findings. IMPRESSION: A few small nonspecific mesenteric lymph nodes are present but no acute GI process other gamboa noted to explain pain and bleeding history. No or VP PATIENT process. Gallbladder, biliary tree and solid abdominal viscera show no suspicious findin gs.
--- NOTE | 2017-08-30 14:41 | ER ---
Nurse's Notes [facility] Name: Omayra Parra Age: 26 yrs Sex: Female : 1990 Arrival Date: 08/30/2017 Time: 10:34 Bed 15 Private MD: Abdullahi Guan E Diagnosis: Rectal Bleeding Presentation: 08/30 10:35 Presenting complaint: Patient states: for almost a week now, i notice a black stool hj every time i go poop; and then today when i wipe my behind i noticed fresh blood; denies hemorrhoids; denies nausea and vomiting; reports bilateral lower back pain; denies fever and chills;. Transition of care: patient was not received from another setting of care. Onset of symptoms was August 30, 2017. Risk Assessment: Do you want to hurt yourself or someone else? Patient reports no desire to harm self or others. Initial Sepsis Screen: Does the patient meet any 2 criteria? No. Patient's initial sepsis screen is negative. Does the patient have a suspected source of infection? No. Patient's initial sepsis screen is negative. Care prior to arrival: None. 10:35 Method Of Arrival: Ambulatory 10:35 Acuity: GAYE 3 hj Triage Assessment: 10:39 General: Appears in no apparent distress. uncomfortable, Behavior is calm, cooperative, hj appropriate for age. Pain: Complains of pain in left low back and right low back Pain currently is 5 out of 10 on a pain scale. Quality of pain is described as aching. 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 - Social history:: Smoking status: Patient/guardian denies using tobacco, Patient/guardian denies using alcohol. - Ebola Screening: : Patient negative for fever greater than or equal to 101.5 degrees Fahrenheit, and additional compatible Ebola Virus Disease symptoms Patient denies exposure to infectious person Patient denies travel to an Ebola-affected area in the 21 days before illness onset. Screenin:41 Abuse screen: Denies threats or abuse. Denies injuries from another. Nutritional hj screening: No deficits noted. Tuberculosis screening: No symptoms or risk factors identified. Fall Risk None identified. Assessment: 10:50 General: Appears comfortable, Behavior is calm, cooperative. Pain: Complains of pain in aa5 left low back and right low back Pain does not radiate. Pain currently is 5 out of 10 on a pain scale. Quality of pain is described as throbbing, Pain began this morning Is continuous. Neuro: Level of Consciousness is awake, alert, obeys commands, Oriented to person, place, time, situation. Cardiovascular: Heart tones S1 S2 present Rhythm is regular. Respiratory: Airway is patent Respiratory effort is even, unlabored, Respiratory pattern is regular, symmetrical, Breath sounds are clear bilaterally. GI: Abdomen is round non-distended, Bowel sounds present X 4 quads. Abd is soft X 4 quads Abdomen is tender to palpation in right upper quadrant Reports nausea, Patient currently denies constipation, diarrhea, vomiting, Pt states "I had a sharp pain on my stomach (RUQ pain) that I had once this morning and once last night but didn't last long". Pt currently denies RUQ pain. Pt reports black stools x 1 week, pt states "I wiped my bottom this morning and there was bright red blood". : Denies burning with urination, inability to void, urinary frequency. EENT: No signs and/or symptoms were reported regarding the EENT system. Derm: Skin is pink, warm \\T\\ dry. Musculoskeletal: Range of motion: intact in all extremities. 12:10 Reassessment: Patient is alert, oriented x 3, equal unlabored respirations, skin aa5 warm/dry/pink. Pt completed CT oral contrast, CT notified. Pt reports nausea, pt requesting anti-nausea medication, Dr. Valera notified . 13:50 Reassessment: Patient and/or family updated on plan of care and expected duration. Pain aa5 level reassessed. Patient is alert, oriented x 3, equal unlabored respirations, skin warm/dry/pink. Pt taken to CT scan now via wheelchair . Pain: Pain currently is 5 out of 10 on a pain scale. 14:10 Reassessment: Patient and/or family updated on plan of care and expected duration. Pain aa5 level reassessed. Patient is alert, oriented x 3, equal unlabored respirations, skin warm/dry/pink. Pt back from CT scan . 15:15 Reassessment: Patient is alert, oriented x 3, equal unlabored respirations, skin aa5 warm/dry/pink. Patient denies pain at this time. Patient states feeling better. Vital Signs: 10:39 BP 122 / 96; Pulse 83; Resp 18; Temp 99.0(O); Pulse Ox 98% on R/A; Weight 113.4 kg; hj Height 5 ft. 2 in. (157.48 cm); Pain 5/10; 12:01 BP 119 / 83; Pulse 82; Resp 17; Pulse Ox 98% on R/A; mh5 14:13 BP 119 / 75; Pulse 68; Resp 18; Pulse Ox 98% on R/A; mh5 15:10 BP 120 / 74; Pulse 70; Resp 16 S; Pulse Ox 97% on R/A; Pain 0/10; aa5 10:39 Body Mass Index 45.73 (113.40 kg, 157.48 cm) hj ED Course: 10:34 Patient arrived in ED. mr 10:34 Abdullahi Guan MD is Private Physician. mr 10:37 Anastacio Valera MD is Attending Physician. kdr 10:38 Triage completed. hj 10:39 Arm band placed on right wrist. hj 10:41 Patient has correct armband on for positive identification. Placed in gown. Bed in low hj position. Call light in reach. Side rails up X 1. 10:44 Maliha Ramirez, RN is Primary Nurse. aa5 11:35 Initial lab(s) drawn, by [facility], sent to lab. Inserted saline lock: 20 gauge in right aa5 antecubital area, using aseptic technique. Blood collected. 11:41 Urine Microscopic Only Sent. mh5 11:41 Urine --Ancillary (enter results) Sent. mh5 11:41 Urine Dipstick--Ancillary (enter results) Sent. mh5 13:55 CT completed. Patient tolerated procedure well. Patient moved to CT via wheelchair. vr Patient moved back from CT. 13:56 CT Abd/Pelvis - W/Contrast In Process Unspecified. EDMS 14:09 CT completed. Patient moved back from CT. mw3 14:40 Abdullahi Guan MD is Referral Physician. kdr 15:20 No provider procedures requiring assistance completed. aa5 15:20 IV discontinued, intact, bleeding controlled, No redness/swelling at site. Pressure aa5 dressing applied. Administered Medications: 11:42 Drug: NS 0.9% 1000 ml Route: IV; Rate: 1 bolus; Site: right antecubital; aa5 13:30 Follow up: IV Status: Completed infusion aa5 12:20 Drug: Zofran 4 mg Route: IVP; Site: right antecubital; aa5 12:25 Follow up: Response: No adverse reaction aa5 14:52 Drug: morphine 4 mg Route: IVP; Site: right antecubital; aa5 15:00 Follow up: Response: No adverse reaction aa5 14:52 Drug: Phenergan 12.5 mg Route: IVP; Site: right antecubital; aa5 15:00 Follow up: Response: No adverse reaction aa5 Outcome: 14:41 Discharge ordered by . kdr 15:19 Discharged to home ambulatory, with significant other. aa5 15:19 Condition: stable 15:19 Discharge instructions given to patient, significant other, Instructed on discharge instructions, follow up and referral plans. medication usage, Demonstrated understanding of instructions, follow-up care, medications, Prescriptions given X 3. 15:20 Patient left the ED. aa5 Signatures: Dispatcher [employer] EDMS Anastacio Valera MD MD kdr Rivera, Maria mr Calderon, Audri, RN RN 5 Carissa Cunningham Henry, RN RN hj Martinez, Maria [facility] Erin Alvares 3 Corrections: (The following items were deleted from the chart) 10:42 10:39 Pulse 83bpm; Resp 18bpm; Pulse Ox 98% RA; Temp 99.0F Oral; 113.4 kg; Height 5 ft. hj 2 in.; BMI: 45.7; Pain 5/10; hj 15:37 15:30 Patient left the ED. 5 aa5
--- NOTE | 2017-08-30 14:41 | EDPHYS ---
Physician Documentation [facility] Name: Omayra Parra Age: 26 yrs Sex: Female : 1990 Arrival Date: 08/30/2017 Time: 10:34 Bed 15 Private MD: Abdullahi Guan E ED Physician Anastacio Valera HPI: 08/30 17:05 This 26 yrs old Female presents to ER via Ambulatory with complaints of kdr Rectal Bleeding. 17:05 The patient presents to the emergency department with bleeding from the rectum/anus, kdr that is mild. Onset: The symptoms/episode began/occurred gradually, 1 week(s) ago. Context: the patient has no known special context relating to the rectal area complaint(s). Modifying factors: The symptoms are alleviated by nothing, The symptoms are aggravated by movement. Associate signs and symptoms: Pertinent positives: lower back - mild. The patient has not experienced similar symptoms in the past. The patient has not recently seen a physician. 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 - Social history:: Smoking status: Patient/guardian denies using tobacco, Patient/guardian denies using alcohol. - Ebola Screening: : Patient negative for fever greater than or equal to 101.5 degrees Fahrenheit, and additional compatible Ebola Virus Disease symptoms Patient denies exposure to infectious person Patient denies travel to an Ebola-affected area in the 21 days before illness onset. ROS: 17:05 Constitutional: Negative for fever, chills, and weight loss, Eyes: Negative for injury, kdr pain, redness, and discharge, Neck: Negative for injury, pain, and swelling, Cardiovascular: Negative for chest pain, palpitations, and edema, Respiratory: Negative for shortness of breath, cough, wheezing, and pleuritic chest pain, Back: Negative for injury and pain, : Negative for injury, bleeding, discharge, and swelling, MS/Extremity: Negative for injury and deformity, Skin: Negative for injury, rash, and discoloration, Neuro: Negative for headache, weakness, numbness, tingling, and seizure activity. Psych: Negative for depression, anxiety, suicide ideation, homicidal ideation, and hallucinations, Allergy/Immunology: Negative for hives, rash, and allergies, Endocrine: Negative for neck swelling, polydipsia, polyuria, polyphagia, and marked weight changes, Hematologic/Lymphatic: Negative for swollen nodes, abnormal bleeding, and unusual bruising. 17:05 Abdomen/GI: Positive for rectal bleeding, Negative for abdominal pain, nausea, vomiting, diarrhea, constipation, abdominal cramps, abdominal distension. Exam: 17:05 Constitutional: This is a well developed, well nourished patient who is awake, alert, kdr and in no acute distress. Head/Face: Normocephalic, atraumatic. Eyes: Pupils equal round and reactive to light, extra-ocular motions intact. Lids and lashes normal. Conjunctiva and sclera are non-icteric and not injected. Cornea within normal limits. Periorbital areas with no swelling, redness, or edema. Neck: Trachea midline, no thyromegaly or masses palpated, and no cervical lymphadenopathy. Supple, full range of motion without nuchal rigidity, or vertebral point tenderness. No Meningismus. Chest/axilla: Normal chest wall appearance and motion. Nontender with no deformity. No lesions are appreciated. Cardiovascular: Regular rate and rhythm with a normal S1 and S2. No gallops, murmurs, or rubs. Normal PMI, no JVD. No pulse deficits. Respiratory: Lungs have equal breath sounds bilaterally, clear to auscultation and percussion. No rales, rhonchi or wheezes noted. No increased work of breathing, no retractions or nasal flaring. Back: No spinal tenderness. No costovertebral tenderness. Full range of motion. Skin: Warm, dry with normal turgor. Normal color with no rashes, no lesions, and no evidence of cellulitis. MS/ Extremity: Pulses equal, no cyanosis. Neurovascular intact. Full, normal range of motion. Neuro: Awake and alert, GCS 15, oriented to person, place, time, and situation. Cranial nerves II-XII grossly intact. Motor strength 5/5 in all extremities. Sensory grossly intact. Cerebellar exam normal. Normal gait. Psych: Awake, alert, with orientation to person, place and time. Behavior, mood, and affect are within normal limits. 17:05 Abdomen/GI: Inspection: obese Bowel sounds: active, Palpation: soft, mild abdominal tenderness, in all quadrants, mass, is not appreciated, rebound tenderness, is not appreciated. Vital Signs: 10:39 BP 122 / 96; Pulse 83; Resp 18; Temp 99.0(O); Pulse Ox 98% on R/A; Weight 113.4 kg; hj Height 5 ft. 2 in. (157.48 cm); Pain 5/10; 12:01 BP 119 / 83; Pulse 82; Resp 17; Pulse Ox 98% on R/A; mh5 14:13 BP 119 / 75; Pulse 68; Resp 18; Pulse Ox 98% on R/A; mh5 15:10 BP 120 / 74; Pulse 70; Resp 16 S; Pulse Ox 97% on R/A; Pain 0/10; aa5 10:39 Body Mass Index 45.73 (113.40 kg, 157.48 cm) hj MDM: 14:41 Patient medically screened. kdr 17:05 Data reviewed: vital signs, nurses notes. Counseling: I had a detailed discussion with kdr the patient and/or guardian regarding: the historical points, exam findings, and any diagnostic results supporting the discharge/admit diagnosis, lab results, radiology results, the need for outpatient follow up. Special discussion: Based on the patient's Hx, exam, and Dx evaluation, there is no indication for emergent surgery or inpatient Tx. It is understood by the patient/guardian that if the Sx's persist or worsen they need to return immediately for re-evaluation. I discussed with the patient/guardian in detail that at this point there is no indication for admission to the hospital. It is understood, however, that if the symptoms persist or worsen the patient needs to return immediately for re-evaluation. 08/30 11:29 Order name: Basic Metabolic Panel; Complete Time: 12:59 [facility] 08/30 11:29 Order name: CBC with Diff; Complete Time: 12:59 [facility] 08/30 11:29 Order name: Creatinine for Radiology; Complete Time: 12:59 [facility] 08/30 11:29 Order name: Hepatic Function; Complete Time: 12:59 [facility] 08/30 11:29 Order name: Lipase; Complete Time: 12:59 [facility] 08/30 11:29 Order name: Urine Microscopic Only; Complete Time: 12:59 [facility] 08/30 11:29 Order name: IV Saline Lock; Complete Time: 11:41 [facility] 08/30 11:29 Order name: CT Abd/Pelvis - W/Contrast; Complete Time: 14:39 kdr 08/30 11:37 Order name: Urine Dipstick--Ancillary (enter results) 08/30 11:37 Order name: Urine --Ancillary (enter results) 08/30 11:29 Order name: Labs collected and sent; Complete Time: 11:41 [facility] 08/30 11:29 Order name: Urine Dipstick-Ancillary (obtain specimen); Complete Time: 11:35 kdr Administered Medications: 11:42 Drug: NS 0.9% 1000 ml Route: IV; Rate: 1 bolus; Site: right antecubital; aa5 13:30 Follow up: IV Status: Completed infusion aa5 12:20 Drug: Zofran 4 mg Route: IVP; Site: right antecubital; aa5 12:25 Follow up: Response: No adverse reaction aa5 14:52 Drug: morphine 4 mg Route: IVP; Site: right antecubital; aa5 15:00 Follow up: Response: No adverse reaction aa5 14:52 Drug: Phenergan 12.5 mg Route: IVP; Site: right antecubital; aa5 15:00 Follow up: Response: No adverse reaction aa5 Disposition: 08/30/17 14:41 Discharged to Home. Impression: Rectal Bleeding. - Condition is Stable. - Discharge Instructions: Abdominal Pain, Adult, [id number], Rectal Bleeding, [id number]. - Prescriptions for Pepcid 20 mg Oral Tablet - take 1 tablet by ORAL route every 12 hours for 10 days; 20 tablet. Zofran 4 mg Oral Tablet - take 1 tablet by ORAL route every 4-6 hours As needed; 15 tablet. Tramadol 50 mg Oral Tablet - take 1 tablet by ORAL route every 4-6 hours As needed as needed; 15 tablet. - Medication Reconciliation Form, Thank You Letter, Work release form form. - Follow up: Abdullahi Guan MD; When: 2 - 3 days; Reason: If symptoms return, Further diagnostic work-up, Recheck today's complaints, Continuance of care, Re-evaluation by your physician. - Problem is new. - Symptoms have improved. Signatures: Dispatcher [employer] Anastacio Bellamy MD MD kdr Maliha Ramirez RN RN aa5 Jack Howard RN RN Shraddha Gilbert [facility] Corrections: (The following items were deleted from the chart) 15:30 14:41 08/30/2017 14:41 Discharged to Home. Impression: Rectal Bleeding. Condition is mh5 Stable. Forms are Medication Reconciliation Form, Thank You Letter, Antibiotic Education, Prescription Opioid Use. Follow up: Abdullahi Guan; When: 2 - 3 days; Reason: If symptoms return, Further diagnostic work-up, Recheck today's complaints, Continuance of care, Re-evaluation by your physician. Problem is new. Symptoms have improved. kdr
[2017-08-30] MEDS ORDERED: PROMETHAZINE 25 MG/ML VIAL ONE (14:49)
[2017-08-30] MEDS ORDERED: MORPHINE 4 MG/ML SYR ONE (14:50)
[2017-08-30 15:37] VITALS: TEMP 99
[2017-08-30 15:40] VITALS: BP 120/74; O2SAT 97
[2017-08-30 16:43] LABS: Urine Blood TRACE (NEG); Urine Glucose NEGATIVE (NEG); Urine Protein TRACE (NEG); Urine Specific Gravity 1.025 (1.005-1.030); Urine pH 6.5 (5.0-7.0)
== END 2017-08-30 15:30 | disposition home or self-care (01) ==
LOC: ER 10:32
DX: K62.5 Hemorrhage of anus and rectum (principal)
CPT/HCPCS: 36415; 74177; 80048; 80076; 81003; 81015; 81025; 83690; 85025; 96361; 96374; 96375; 99284; J2405; J2550; J7030; Q9967

== ENCOUNTER 2017-09-04 08:16 | Emergency (ER) | payer MEDICAID ==
[2017-09-04] MEDS ORDERED: CYCLOBENZAPRINE 10 MG TAB ONE (08:41)
[2017-09-04] MEDS ORDERED: KETOROLAC 30 MG/ML INJ ONE (08:42)
[2017-09-04 09:36] LABS: Urine Blood TRACE (NEG); Urine Glucose NEGATIVE (NEG); Urine Protein TRACE (NEG); Urine Specific Gravity 1.025 (1.005-1.030); Urine pH 6.5 (5.0-7.0)
[2017-09-04 09:36] LABS: Urine Specific Gravity 1.025 (1.005-1.030)
--- NOTE | 2017-09-04 09:41 | EDPHYS ---
Physician Documentation [facility] Name: Omayra Parra Age: 26 yrs Sex: Female : 1990 Arrival Date: 09/04/2017 Time: 08:19 Bed 14 Private MD: Abdullahi Guan E ED Physician Jasbir Coleman HPI: 09/04 08:35 This 26 yrs old Female presents to ER via Ambulatory with complaints of Back cp Pain. 08:35 The patient presents with pain that is acute, with no known mechanism of injury. The cp symptoms are located in the low back. Onset: The symptoms/episode began/occurred couple weeks ago. 08:35 Associated signs and symptoms: Pertinent negatives: abdominal pain, constipation, cp fever, hematuria, incontinence, numbness, urinary retention, weakness. 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 - Social history:: Smoking status: Patient/guardian denies using tobacco, Patient uses alcohol, occasionally. - Ebola Screening: : Patient negative for fever greater than or equal to 101.5 degrees Fahrenheit, and additional compatible Ebola Virus Disease symptoms Patient denies exposure to infectious person Patient denies travel to an Ebola-affected area in the 21 days before illness onset. ROS: 08:40 Constitutional: Negative for body aches, chills, fever, poor PO intake. cp 08:40 Eyes: Negative for injury, pain, redness, and discharge. cp 08:40 ENT: Negative for drainage from ear(s), ear pain, sore throat, difficulty swallowing, cp difficulty handling secretions. 08:40 Cardiovascular: Negative for chest pain, edema, palpitations. 08:40 Respiratory: Negative for cough, shortness of breath, wheezing. 08:40 Abdomen/GI: Negative for abdominal pain, nausea, vomiting, and diarrhea, black/tarry stool, rectal pain, rectal bleeding, bowel incontinence. 08:40 Back: Positive for pain at rest, pain with movement, of the low back area. 08:40 : Negative for urinary symptoms, flank pain, difficulty urinating, bladder incontinence. 08:40 Skin: Negative for cellulitis, rash. 08:40 Neuro: Negative for altered mental status, numbness, weakness. 08:40 All other systems are negative. cp Exam: 08:47 Constitutional: The patient appears in no acute distress, alert, awake, non-toxic, well cp developed, well nourished. 08:47 Head/Face: Normocephalic, atraumatic. cp 08:47 Eyes: Periorbital structures: appear normal, Conjunctiva: normal, no exudate, no injection, Lids and lashes: appear normal, bilaterally. 08:47 ENT: External ear(s): are unremarkable, Nose: is normal, Mouth: Lips: moist, Oral mucosa: pink and intact, moist, Posterior pharynx: is normal, airway is patent, no erythema, no exudate. 08:47 Neck: ROM/movement: is normal, is supple, without pain, no range of motions limitations, no nuchal rigidity. 08:47 Chest/axilla: Inspection: normal, Palpation: is normal, no crepitus, no tenderness. 08:47 Cardiovascular: Rate: normal, Rhythm: regular. 08:47 Respiratory: the patient does not display signs of respiratory distress, Respirations: normal, no use of accessory muscles, no retractions, no splinting, no tachypnea, labored breathing, is not present, Breath sounds: are clear throughout, no decreased breath sounds, no stridor, no wheezing. 08:47 Abdomen/GI: Inspection: obese Bowel sounds: active, all quadrants, Palpation: abdomen is soft and non-tender, in all quadrants. 08:47 Back: pain, that is moderate, of the low back area, ROM is painful, with all movement, CVA tenderness, is absent, Straight leg raises: of both lower extremities does not illicit pain. 08:47 Skin: cellulitis, is not appreciated, no rash present. 08:47 Neuro: Motor: moves all fours, strength is normal, Sensation: no obvious gross deficits, Deep tendon reflexes are 2+ (normal) in the right patellar, right Achilles, left patellar and left Achilles. Vital Signs: 08:28 BP 145 / 100; Pulse 85; Resp 18; Temp 98.5; Pulse Ox 97% on R/A; Weight 113.4 kg; hj Height 5 ft. 2 in. (157.48 cm); Pain 10/10; 09:55 BP 142 / 90; Pulse 84; Resp 18; Pulse Ox 100% on R/A; hj 08:28 Body Mass Index 45.73 (113.40 kg, 157.48 cm) MDM: 08:21 Patient medically screened. cp 09:00 Differential diagnosis: Cholelithiasis Pyelonephritis ruptured disc, Ureterolithiasis cp UTI, cauda equina, spinal stenosis. 09:40 Data reviewed: vital signs, nurses notes, lab test result(s), radiologic studies, plain cp films. 09:40 Test interpretation: by ED physician or midlevel provider: plain radiologic studies. cp Counseling: I had a detailed discussion with the patient and/or guardian regarding: the historical points, exam findings, and any diagnostic results supporting the discharge/admit diagnosis, lab results, radiology results, the need for outpatient follow up, a family practitioner, to return to the emergency department if symptoms worsen or persist or if there are any questions or concerns that arise at home. Response to treatment: the patient's symptoms have mildly improved after treatment. 09/04 09:01 Order name: Urine Dipstick--Ancillary (enter results); Complete Time: 09:38 iw 09/04 09:01 Order name: Urine --Ancillary (enter results); Complete Time: 09:38 iw 09/04 08:34 Order name: Urine Dipstick-Ancillary (obtain specimen); Complete Time: 08:52 cp 09/04 08:34 Order name: XRAY Lumbar Spine (3 Views) 09/04 08:34 Order name: Urine Test (obtain specimen); Complete Time: 08:51 cp Administered Medications: 08:34 Drug: TORadol 60 mg {Note: administered by SUSAN Arcos.} Route: IM; Site: left gluteus; hj 09:54 Follow up: Response: No adverse reaction; Pain is decreased hj 08:34 Drug: Flexeril 10 mg Route: PO; hj 09:54 Follow up: Response: No adverse reaction Disposition: 12:20 Co-signature as Attending Physician, Jasbir Coleman MD I agree with the assessment and ren plan of care. Disposition: 09/04/17 09:41 Discharged to Home. Impression: Low back pain. - Condition is Stable. - Discharge Instructions: Back Pain, Adult, Back Exercises, [id number]. - Prescriptions for Medrol (Ye) 4 mg Oral Tablets, Dose Pack - take 1 tablet by ORAL route as directed - follow package instructions; 1 packet. orphenadrine citrate 100 mg Oral Tablet Sustained Release - take 1 tablet by ORAL route 2 times per day As needed no driving while taking medication; 20 tablet. - Work release form, Medication Reconciliation Form, Thank You Letter, Antibiotic Education, Prescription Opioid Use form. - Follow up: Private Physician; When: 2 - 3 days; Reason: Recheck today's complaints. - Problem is new. - Symptoms have improved. Signatures: Dispatcher [employer] EDMS Jasbir Coleman MD MD cha Joaquin, Henry, RN RN Jasbir Qiu PA PA cp Corrections: (The following items were deleted from the chart) 09:58 09:41 09/04/2017 09:41 Discharged to Home. Impression: Low back pain. Condition is hj Stable. Forms are Medication Reconciliation Form, Thank You Letter, Antibiotic Education, Prescription Opioid Use. Follow up: Private Physician; When: 2 - 3 days; Reason: Recheck today's complaints. Problem is new. Symptoms have improved. cp
--- NOTE | 2017-09-04 09:41 | ER ---
Nurse's Notes [facility] Name: Omayra Parra Age: 26 yrs Sex: Female : 1990 Arrival Date: 09/04/2017 Time: 08:19 Bed 14 Private MD: Abdullahi Guan E Diagnosis: Low back pain Presentation: 09/04 08:24 Presenting complaint: Patient states: i was just here for rectal bleed, and now my hj lower back has been hurting for a couple of weeks now; non radiating pain; reports nausea; pain is 10/10; took tramadol last night;. Transition of care: patient was not received from another setting of care. Onset of symptoms was September 04, 2017. Risk Assessment: Do you want to hurt yourself or someone else? Patient reports no desire to harm self or others. Initial Sepsis Screen: Does the patient meet any 2 criteria? No. Patient's initial sepsis screen is negative. Does the patient have a suspected source of infection? No. Patient's initial sepsis screen is negative. Care prior to arrival: None. 08:24 Method Of Arrival: Ambulatory 08:24 Acuity: GAYE 3 hj Triage Assessment: 08:27 General: Appears in no apparent distress. uncomfortable, Behavior is calm, cooperative, hj appropriate for age. Pain: Complains of pain in left low back and right low back. Musculoskeletal: Circulation, motion, and sensation intact. Capillary refill < 3 seconds, Range of motion: intact in all extremities. 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 - Social history:: Smoking status: Patient/guardian denies using tobacco, Patient uses alcohol, occasionally. - Ebola Screening: : Patient negative for fever greater than or equal to 101.5 degrees Fahrenheit, and additional compatible Ebola Virus Disease symptoms Patient denies exposure to infectious person Patient denies travel to an Ebola-affected area in the 21 days before illness onset. Screenin:27 Abuse screen: Denies threats or abuse. Denies injuries from another. Nutritional hj screening: No deficits noted. Tuberculosis screening: No symptoms or risk factors identified. Fall Risk None identified. Assessment: 08:31 Reassessment: see triage assessment;. hj 08:40 Reassessment: Pt taken to x-ray via wheelchair. jb4 Vital Signs: 08:28 BP 145 / 100; Pulse 85; Resp 18; Temp 98.5; Pulse Ox 97% on R/A; Weight 113.4 kg; hj Height 5 ft. 2 in. (157.48 cm); Pain 10/10; 09:55 BP 142 / 90; Pulse 84; Resp 18; Pulse Ox 100% on R/A; hj 08:28 Body Mass Index 45.73 (113.40 kg, 157.48 cm) hj ED Course: 08:19 Patient arrived in ED. mr 08:19 Abdullahi Guan MD is Private Physician. mr 08:21 Jasbir Meredith PA is PHCP. cp 08:21 Jasbir Coleman MD is Attending Physician. cp 08:24 Jack Howard RN is Primary Nurse. hj 08:26 Triage completed. hj 08:28 Arm band placed on right wrist. hj 08:29 Patient has correct armband on for positive identification. Placed in gown. Bed in low hj position. Call light in reach. Side rails up X 1. 08:54 Patient moved to radiology via wheelchair. jb2 09:17 X-ray completed. Patient tolerated procedure well. Patient moved back from radiology. jb2 09:17 XRAY Lumbar Spine (3 Views) In Process Unspecified. EDMS 09:55 No provider procedures requiring assistance completed. Patient did not have IV access hj during this emergency room visit. Administered Medications: 08:34 Drug: TORadol 60 mg {Note: administered by SUSAN Arcos.} Route: IM; Site: left gluteus; hj 09:54 Follow up: Response: No adverse reaction; Pain is decreased hj 08:34 Drug: Flexeril 10 mg Route: PO; hj 09:54 Follow up: Response: No adverse reaction hj Outcome: 09:41 Discharge ordered by . cp 09:55 Discharged to home ambulatory. hj 09:55 Condition: stable 09:55 Discharge instructions given to patient, Instructed on discharge instructions, follow up and referral plans. medication usage, Demonstrated understanding of instructions, follow-up care, medications, Prescriptions given X 2. 09:58 Patient left the ED. milena Signatures: Dispatcher [employer] EDCO Shraddha Schmid Jesse jb2 Jack Howard, RN RN hj Jasbir Meredith PA PA cp Bryson, James, RN RN jb4
--- NOTE | 2017-09-04 10:04 | RAD REPORT ---
EXAM DESCRIPTION: RAD - Lumbar Spine 3 Views - 09/04/2017 9:19 am CLINICAL HISTORY: Two week history of lumbar pain COMPARISON: None. FINDINGS: A three-view lumbar spine examination was performed. Lumbar bodies are normal in height an d alignment. No fracture or acute bony process seen. No disc space narrowing. No other significant fi ndings. No pars defects identified. IMPRESSION: Negative Lumbar Spine examination.
[2017-09-04 10:07] VITALS: TEMP 98.5
[2017-09-04 10:08] VITALS: BP 142/90; O2SAT 100
== END 2017-09-04 09:58 | disposition home or self-care (01) ==
LOC: ER 08:16
DX: M54.5 Low back pain (principal)
CPT/HCPCS: 72100; 81003; 81025; 96372; 99283

== ENCOUNTER 2017-09-25 11:06 | Emergency (ER) | payer MEDICAID ==
[2017-09-25] MEDS ORDERED: AZITHROMYCIN 250 MG TAB ONE (12:09)
[2017-09-25] MEDS ORDERED: CEFTRIAXONE/SWI 1gm 1 GM/10 ML SYR ONE (12:14)
--- NOTE | 2017-09-25 13:01 | RAD REPORT ---
EXAM DESCRIPTION: RAD - Chest Single View - 09/25/2017 12:53 pm CLINICAL HISTORY: COUGH Chest pain. COMPARISON: No comparisons FINDINGS: Portable technique limits examination quality. The lungs are grossly clear. The heart is normal in size. No displaced fractures. IMPRESSION: No acute intrathoracic process suspected.
--- NOTE | 2017-09-25 13:14 | EDPHYS ---
Physician Documentation [facility] Name: Omayra Parra Age: 26 yrs Sex: Female : 1990 Arrival Date: 09/25/2017 Time: 11:07 Bed 19 Private MD: Abdullahi Guan E ED Physician Jasbir Coleman HPI: 09/25 11:54 This 26 yrs old Female presents to ER via Ambulatory with complaints of ren Cough, Chest Congestion. 11:54 The patient or guardian reports cough, difficulty breathing. Onset: The ren symptoms/episode began/occurred 3 day(s) ago. Severity of symptoms: At their worst the symptoms were mild, in the emergency department the symptoms are unchanged. Modifying factors: The symptoms are alleviated by nothing. Associated signs and symptoms: The patient has no apparent associated signs or symptoms. The patient has not experienced similar symptoms in the past. 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 - Social history:: Smoking status: Patient/guardian denies using tobacco. - Ebola Screening: : No symptoms or risks identified at this time. ROS: 11:54 Constitutional: Negative for fever, chills, and weight loss, Eyes: Negative for injury, ren pain, redness, and discharge, ENT: Negative for injury, pain, and discharge, Neck: Negative for injury, pain, and swelling, Cardiovascular: Negative for chest pain, palpitations, and edema, Abdomen/GI: Negative for abdominal pain, nausea, vomiting, diarrhea, and constipation, Back: Negative for injury and pain, : Negative for injury, bleeding, discharge, and swelling, MS/Extremity: Negative for injury and deformity, Skin: Negative for injury, rash, and discoloration, Neuro: Negative for headache, weakness, numbness, tingling, and seizure, Psych: Negative for depression, anxiety, suicide ideation, homicidal ideation, and hallucinations, Allergy/Immunology: Negative for hives, rash, and allergies, Endocrine: Negative for neck swelling, polydipsia, polyuria, polyphagia, and marked weight changes, Hematologic/Lymphatic: Negative for swollen nodes, abnormal bleeding, and unusual bruising. 11:54 Respiratory: Positive for cough. Exam: 11:54 Constitutional: This is a well developed, well nourished patient who is awake, alert, ren and in no acute distress. Head/Face: Normocephalic, atraumatic. Eyes: Pupils equal round and reactive to light, extra-ocular motions intact. Lids and lashes normal. Conjunctiva and sclera are non-icteric and not injected. Cornea within normal limits. Periorbital areas with no swelling, redness, or edema. ENT: Nares patent. No nasal discharge, no septal abnormalities noted. Tympanic membranes are normal and external auditory canals are clear. Oropharynx with no redness, swelling, or masses, exudates, or evidence of obstruction, uvula midline. Mucous membranes moist. Neck: Trachea midline, no thyromegaly or masses palpated, and no cervical lymphadenopathy. Supple, full range of motion without nuchal rigidity, or vertebral point tenderness. No Meningismus. Chest/axilla: Normal chest wall appearance and motion. Nontender with no deformity. No lesions are appreciated. Cardiovascular: Regular rate and rhythm with a normal S1 and S2. No gallops, murmurs, or rubs. Normal PMI, no JVD. No pulse deficits. Respiratory: Lungs have equal breath sounds bilaterally, clear to auscultation and percussion. No rales, rhonchi or wheezes noted. No increased work of breathing, no retractions or nasal flaring. Abdomen/GI: Soft, non-tender, with normal bowel sounds. No distension or tympany. No guarding or rebound. No evidence of tenderness throughout. Back: No spinal tenderness. No costovertebral tenderness. Full range of motion. Skin: Warm, dry with normal turgor. Normal color with no rashes, no lesions, and no evidence of cellulitis. MS/ Extremity: Pulses equal, no cyanosis. Neurovascular intact. Full, normal range of motion. Neuro: Awake and alert, GCS 15, oriented to person, place, time, and situation. Cranial nerves II-XII grossly intact. Motor strength 5/5 in all extremities. Sensory grossly intact. Cerebellar exam normal. Normal gait. Psych: Awake, alert, with orientation to person, place and time. Behavior, mood, and affect are within normal limits. 11:54 Musculoskeletal/extremity: DVT Exam: No signs of deep vein thrombosis. no pain, no swelling, no tenderness, negative Homans' sign noted on exam, no appreciated bluish discoloration, no erythema, no increased warmth. Vital Signs: 11:20 BP 131 / 86; Pulse 87; Resp 18; Temp 98.2; Pulse Ox 98% on R/A; Weight 113.4 kg; Height ph 5 ft. 2 in. (157.48 cm); 12:20 BP 130 / 85; Pulse 75; Resp 17; Pulse Ox 98% on R/A; rb1 13:15 BP 133 / 84; Pulse 79; Resp 19; Pulse Ox 99% on R/A; rb1 11:20 Body Mass Index 45.73 (113.40 kg, 157.48 cm) ph MDM: 11:28 Patient medically screened. [facility] 11:55 Data reviewed: vital signs, nurses notes, lab test result(s), urinalysis, radiologic ren studies, plain films. 09/25 12:48 Order name: Urine Dipstick--Ancillary (enter results) 09/25 12:48 Order name: Urine --Ancillary (enter results) 09/25 11:54 Order name: Chest Single View XRAY [facility] 09/25 11:54 Order name: Urine Test (obtain specimen); Complete Time: 12:50 [facility] 09/25 11:54 Order name: Urine Dipstick-Ancillary (obtain specimen); Complete Time: 12:50 [facility] 09/25 12:50 Order name: IV; Complete Time: 12:50 [facility] Administered Medications: 12:05 Drug: Zithromax 500 mg Route: PO; rb1 12:35 Follow up: Response: No adverse reaction rb1 12:08 Not Given (Duplicate Order): Rocephin (cefTRIAXone) 100 mg/kg IVPB once; not to exceed ren 2 grams 12:25 Drug: Rocephin - (cefTRIAXone) 1 grams Route: IVPB; Infused Over: 30 mins; Site: right rb1 antecubital; 13:13 Follow up: Response: No adverse reaction; IV Status: Completed infusion rb1 12:49 CANCELLED (provider discretion): Rocephin (cefTRIAXone) 1 grams IM once rb1 Disposition: 09/25/17 13:13 Discharged to Home. Impression: Acute upper respiratory infection, unspecified, Bronchitis, not specified as acute or chronic. - Condition is Stable. - Discharge Instructions: Acute Bronchitis, Adult, Upper Respiratory Infection, Adult, Cool Mist Vaporizer, Upper Respiratory Infection, Adult, Osjy-bi-Zwnt, Cough, Adult, Vdhf-dx-Imxv, Cough, Adult. - Prescriptions for Shi- D 12 Hour 60-120 mg Oral Tablet Sustained Release 12 hr - take 1 tablet by ORAL route every 12 hours As needed; 20 tablet. Albuterol Sulfate 90 mcg/actuation - inhale 1-2 puff by INHALATION route every 4-6 hours; 1 Inhaler. Guaifenesin AC 10- 100 mg/5 mL Oral Liquid - take 10 milliliters by ORAL route every 6 hours As needed; 160 milliliter. Zithromax 500 mg Oral Tablet - take 1 tablet by ORAL route once daily for 4 days; 4 tablet. - Medication Reconciliation Form, Thank You Letter, Antibiotic Education, Prescription Opioid Use form. - Follow up: Abdullahi Guan; When: 2 - 3 days; Reason: Recheck today's complaints, Continuance of care, Re-evaluation by your physician. - Problem is an ongoing problem. - Symptoms have improved. Signatures: Dispatcher [employer] EDMS Jasbir Coleman MD MD cha Smirch, Shelby, RN RN Marilou Roman, SUSAN RN Estefani Khan, RN RN rb1 Corrections: (The following items were deleted from the chart) 12:49 12:08 Rocephin (cefTRIAXone) 1 grams IM once ordered. ren rb1 13:25 13:13 09/25/2017 13:13 Discharged to Home. Impression: Acute upper respiratory rb1 infection, unspecified; Bronchitis, not specified as acute or chronic. Condition is Stable. Discharge Instructions: Acute Bronchitis, Adult, Upper Respiratory Infection, Adult, Cool Mist Vaporizer, Upper Respiratory Infection, Adult, Otqz-nt-Svln, Cough, Adult, Oojt-ij-Bwec, Cough, Adult. Prescriptions for Shi-D 12 Hour 60-120 mg Oral Tablet Sustained Release 12 hr - take 1 tablet by ORAL route every 12 hours As needed; 20 tablet, Albuterol Sulfate 90 mcg/actuation - inhale 1-2 puff by INHALATION route every 4-6 hours; 1 Inhaler, Guaifenesin AC 10-100 mg/5 mL Oral Liquid - take 10 milliliters by ORAL route every 6 hours As needed; 160 milliliter, Zithromax 500 mg Oral Tablet - take 1 tablet by ORAL route once daily for 4 days; 4 tablet. and Forms are Medication Reconciliation Form, Thank You Letter, Antibiotic Education, Prescription Opioid Use. Follow up: Abdullahi Guan; When: 2 - 3 days; Reason: Recheck today's complaints, Continuance of care, Re-evaluation by your physician. Problem is an ongoing problem. Symptoms have improved. ss
--- NOTE | 2017-09-25 13:14 | ER ---
Nurse's Notes [facility] Name: Omayra Parra Age: 26 yrs Sex: Female : 1990 Arrival Date: 09/25/2017 Time: 11:07 Bed 19 Private MD: Abdullahi Guan E Diagnosis: Acute upper respiratory infection, unspecified;Bronchitis, not specified as acute or chronic Presentation: 09/25 11:18 Presenting complaint: Patient states: " I have had a cough for about a week and it's ph just not getting any better. My chest is sore from coughing." Pt reports no productive cough x 1 week, denies fever or other cold symptoms. Transition of care: patient was not received from another setting of care. Onset of symptoms was September 25, 2017. Risk Assessment: Do you want to hurt yourself or someone else? Patient reports no desire to harm self or others. Initial Sepsis Screen: Does the patient meet any 2 criteria? No. Patient's initial sepsis screen is negative. Does the patient have a suspected source of infection? No. Patient's initial sepsis screen is negative. Care prior to arrival: None. 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 - Social history:: Smoking status: Patient/guardian denies using tobacco. - Ebola Screening: : No symptoms or risks identified at this time. Screenin:25 Abuse screen: Denies threats or abuse. Nutritional screening: No deficits noted. rb1 Tuberculosis screening: No symptoms or risk factors identified. Fall Risk None identified. Assessment: 11:25 General: Appears in no apparent distress. comfortable, obese, Behavior is calm, rb1 cooperative, Denies fever. Pain: Complains of pain in throat Pain currently is 10 out of 10 on a pain scale. Pain began x 2 weeks. Neuro: Level of Consciousness is awake, alert, obeys commands, Oriented to person, place, time, situation. Cardiovascular: Capillary refill < 3 seconds is brisk in bilateral fingers. Respiratory: Airway is patent Respiratory effort is even, unlabored, Respiratory pattern is regular, symmetrical. Respiratory: Reports cough that is non-productive. GI: Reports nausea, vomiting, since x 2 days. : No signs and/or symptoms were reported regarding the genitourinary system. EENT: Reports pain when swallowing. Derm: Skin is pink, warm \\T\\ dry. 12:25 Reassessment: Patient appears in no apparent distress at this time. Patient and/or rb1 family updated on plan of care and expected duration. Pain level reassessed. Patient is alert, oriented x 3, equal unlabored respirations, skin warm/dry/pink. 12:51 Reassessment: X-ray at bedside. rb1 13:15 Reassessment: Patient appears in no apparent distress at this time. No changes from rb1 previously documented assessment. Vital Signs: 11:20 BP 131 / 86; Pulse 87; Resp 18; Temp 98.2; Pulse Ox 98% on R/A; Weight 113.4 kg; Height ph 5 ft. 2 in. (157.48 cm); 12:20 BP 130 / 85; Pulse 75; Resp 17; Pulse Ox 98% on R/A; rb1 13:15 BP 133 / 84; Pulse 79; Resp 19; Pulse Ox 99% on R/A; rb1 11:20 Body Mass Index 45.73 (113.40 kg, 157.48 cm) ph ED Course: 11:07 Patient arrived in ED. sb2 11:07 Abdullahi Guan MD is Private Physician. sb2 11:20 Triage completed. ph 11:22 Arm band placed on. ph 11:25 Patient has correct armband on for positive identification. Bed in low position. Call rb1 light in reach. Side rails up X 1. Pulse ox on. NIBP on. 11:27 Jasbir Coleman MD is Attending Physician. [facility] 11:35 Estefani Palomo, SUSAN is Primary Nurse. rb1 12:51 X-ray completed. Portable x-ray completed in exam room. Patient tolerated procedure ml well. 12:53 Chest Single View XRAY In Process Unspecified. EDMS 13:13 Abdullahi Guan MD is Referral Physician. ss 13:25 No provider procedures requiring assistance completed. IV discontinued, intact, rb1 bleeding controlled, No redness/swelling at site. Pressure dressing applied. Administered Medications: 12:05 Drug: Zithromax 500 mg Route: PO; rb1 12:35 Follow up: Response: No adverse reaction rb1 12:08 Not Given (Duplicate Order): Rocephin (cefTRIAXone) 100 mg/kg IVPB once; not to exceed ren 2 grams 12:25 Drug: Rocephin - (cefTRIAXone) 1 grams Route: IVPB; Infused Over: 30 mins; Site: right rb1 antecubital; 13:13 Follow up: Response: No adverse reaction; IV Status: Completed infusion rb1 12:49 CANCELLED (provider discretion): Rocephin (cefTRIAXone) 1 grams IM once rb1 Outcome: 13:13 Discharge ordered by . 13:25 Patient left the ED. rb1 13:25 Discharged to home ambulatory. rb1 13:25 Condition: stable 13:25 Discharge instructions given to patient, Instructed on discharge instructions, follow up and referral plans. medication usage, Demonstrated understanding of instructions, follow-up care, medications, Prescriptions given X 4. Signatures: Dispatcher [employer] EDMS Jasbir Coleman MD MD cha Lopez, Melissa ml Smirch, Shelby, RN RN ss Marilou Christie RN RN Estefani Khan, SUSAN RN rb1 Bailee Bates2
[2017-09-25 13:36] VITALS: TEMP 98.2; O2SAT 98
[2017-09-25 13:37] VITALS: BP 130/85
[2017-09-25 16:00] LABS: Urine Blood NEGATIVE (NEG); Urine Glucose NEGATIVE (NEG); Urine Protein NEGATIVE (NEG); Urine Specific Gravity 1.025 (1.005-1.030)
== END 2017-09-25 13:25 | disposition home or self-care (01) ==
LOC: ER 11:06
DX: J40 Bronchitis, not specified as acute or chronic (principal); J06.9 Acute upper respiratory infection, unspecified
CPT/HCPCS: 71045; 81003; 81025; 96365; 99284; J0696

== ENCOUNTER 2017-11-28 13:52 | Emergency (ER) | payer MEDICAID ==
[2017-11-28 15:18] LABS: Absolute Lymphocytes (CBC) 1.9 K/uL (0.7-4.9); Absolute Monocytes 0.4 K/uL (0.1-1.3); Absolute Neutrophil 6.5 K/uL (1.8-8.0); Basophils % 0.7 % (0-1.3); Eosinophils % 1.8 % (0-4.4); Hematocrit 38.6 % (36.0-45.0); Lymphocytes % 21.4 % (15.3-44.8); MCV 83.6 fL (80-100); MPV 6.9 fL (7.6-11.3); Monocytes % 4.8 % (3.3-12.3); RBC Red Blood Cell Count 4.61 M/uL (3.86-4.86)
[2017-11-28 15:35] LABS: ALT/SGPT 30 U/L (12-78); AST/SGOT 15 U/L (15-37); Albumin 3.7 g/dL (3.4-5.0); Alkaline Phosphatase 89 U/L (45-117); BUN Blood Urea Nitrogen 11 mg/dL (7-18); Bicarbonate 26 mmol/L (21-32); Bilirubin Direct 0.2 mg/dL (0-0.2); Bilirubin Total 1.1 mg/dL (0.2-1.0); Glucose Level 85 mg/dL (74-106); Lipase 120 U/L (73-393); Potassium 3.7 mmol/L (3.5-5.1); Protein, Total 7.3 g/dL (6.4-8.2); Sodium Level 140 mmol/L (136-145)
--- NOTE | 2017-11-28 16:18 | RAD REPORT ---
EXAM DESCRIPTION: CT - Abdomen Pelvis W Contrast - 11/28/2017 4:04 pm CLINICAL HISTORY: Abdominal pain. Abdominal surgery 2 weeks ago COMPARISON: August 2017 TECHNIQUE: Computed axial tomography of the abdomen and pelvis was obtained. 100 cc Isovue-300 is ad ministered intravenously. Oral contrast was given. All CT scans are performed using dose optimization technique as appropriate and may include automated exposure control or mA/KV adjustment according to patient size. FINDINGS: The liver, spleen, pancreas, adrenals and kidneys appear unremarkable. The appendix is normal caliber. There is no evidence of diverticulitis Mild stranding is present within the anterior subcutaneous fat of the pelvis presumably related to th e recent surgery. Tiny umbilical hernia is seen IMPRESSION: No acute abnormality displayed
[2017-11-28 16:48] LABS: Urine Blood NEGATIVE (NEG); Urine Glucose NEGATIVE (NEG); Urine Protein NEGATIVE (NEG); Urine Specific Gravity 1.025 (1.005-1.030); Urine pH 6.5 (5.0-7.0)
--- NOTE | 2017-11-28 17:20 | ER ---
Nurse's Notes [facility] Name: Omayra Parra Age: 27 yrs Sex: Female : 1990 Arrival Date: 11/28/2017 Time: 13:55 Bed 15 Private MD: Abdullahi Guan E Diagnosis: Abdominal and pelvic pain;Seroma drainiage Presentation: 11/28 14:12 Presenting complaint: Patient states: "I had surgery on the , I've still been aj1 having pain from it, and today I was in the kitchen and I felt a pop and then it felt wet and I checked and the incision was bleeding." Reports that she had an exploratory laparotomy done on November 14. She has an appointment with her surgeon tomorrow, she called the office today but Dr. rTammell is in surgery today and is unable to see her. Transition of care: patient was not received from another setting of care. Onset of symptoms was November 2017. Risk Assessment: Do you want to hurt yourself or someone else? Patient reports no desire to harm self or others. Initial Sepsis Screen: Does the patient meet any 2 criteria? No. Patient's initial sepsis screen is negative. Does the patient have a suspected source of infection? Yes: Acute abdominal pain. Care prior to arrival: None. 14:12 Method Of Arrival: Ambulatory aj 14:12 Acuity: GAYE 3 aj1 Triage Assessment: 14:16 General: Appears in no apparent distress. uncomfortable, Behavior is calm, cooperative, aj1 appropriate for age. Pain: Pain currently is 10 out of 10 on a pain scale. Neuro: Level of Consciousness is awake, alert, obeys commands. Cardiovascular: Patient's skin is warm and dry. Respiratory: Airway is patent Respiratory effort is even, unlabored, Respiratory pattern is regular, symmetrical. 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 - Social history:: Smoking status: Patient/guardian denies using tobacco. - Ebola Screening: : Patient denies travel to an Ebola-affected area in the 21 days before illness onset. Screenin:39 Abuse screen: Denies threats or abuse. Nutritional screening: No deficits noted. la1 Tuberculosis screening: No symptoms or risk factors identified. Fall Risk None identified. Assessment: 14:38 General: Appears in no apparent distress. Behavior is calm, cooperative. Pain: la1 Complains of pain in right lower quadrant and left lower quadrant. Neuro: Level of Consciousness is awake, alert, obeys commands, Oriented to person, place, time, situation. Cardiovascular: Capillary refill < 3 seconds Patient's skin is warm and dry. Respiratory: Airway is patent Respiratory effort is even, unlabored, Respiratory pattern is regular, symmetrical, Breath sounds are clear bilaterally. GI: Abdomen is non-distended, obese, Bowel sounds present X 4 quads. Abd is soft X 4 quads Abdomen is tender to palpation in right lower quadrant and left lower quadrant. : No signs and/or symptoms were reported regarding the genitourinary system. Derm: Wound noted Other: surgical wound to lower abd well approximated with small pin point hole noted on the right with minimal serosanguinous drainage. 17:16 Reassessment: Patient appears in no apparent distress at this time. No changes from la1 previously documented assessment. Patient and/or family updated on plan of care and expected duration. Pain level reassessed. Vital Signs: 14:16 BP 139 / 87; Pulse 88; Resp 18; Temp 97.5(TE); Pulse Ox 100% on R/A; Weight 113.4 kg aj1 (R); Height 5 ft. 2 in. (157.48 cm) (R); Pain 10/10; 17:35 BP 135 / 74; Pulse 84; Resp 16; Temp 97.6; Pulse Ox 98% on R/A; la1 14:16 Body Mass Index 45.73 (113.40 kg, 157.48 cm) aj1 ED Course: 13:55 Patient arrived in ED. sb2 13:55 Abdullahi Guan MD is Private Physician. sb2 14:15 Triage completed. aj1 14:16 Arm band placed on Patient placed in an exam room. aj1 14:19 Fredis Johnson RN is Primary Nurse. la1 14:39 Anastacio Valera MD is Attending Physician. kdr 14:39 Call light in reach. Side rails up X 1. la1 15:23 Inserted saline lock: 20 gauge in right antecubital area, using aseptic technique. la1 Blood collected. 15:41 Radiology exam delayed due to test not completed at this time. 15:[address] vm2 16:05 CT Abd/Pelvis - W/Contrast In Process Unspecified. EDMS 16:11 CT completed. Patient moved back from CT. vm2 17:19 Abdullahi Guan MD is Referral Physician. kdr 17:34 Jasbir Meredith PA is PHCP. cp 17:35 No provider procedures requiring assistance completed. IV discontinued, intact, la1 bleeding controlled, No redness/swelling at site. Pressure dressing applied. Administered Medications: No medications were administered Outcome: 17:20 Discharge ordered by . kdr 17:35 Discharged to home ambulatory. la1 17:35 Condition: stable 17:35 Discharge instructions given to patient, Instructed on discharge instructions, follow up and referral plans. medication usage, Demonstrated understanding of instructions, follow-up care, medications, Prescriptions given X 2. 17:35 Patient left the ED. la1 Signatures: Dispatcher [employer] EDMS Winnie Lieberman, RN RN aj1 Anastacio Valera MD MD kdr Jones, Susan sj Attema, Lee RN RN la1 Jasbir Meredith PA PA cp McGuire, Victoria vm2 Bailee Bates2
--- NOTE | 2017-11-28 17:21 | EDPHYS ---
Physician Documentation [facility] Name: Omayra Parra Age: 27 yrs Sex: Female : 1990 Arrival Date: 11/28/2017 Time: 13:55 Bed 15 Private MD: Abdulalhi Guan E ED Physician Anastacio Valera CARBIDE GRINDER: 11/28 14:16 LMP 11/14/2017 aj1 Historical: - Allergies: 14:16 No Known Allergies; aj1 - Home Meds: 14:16 Xanax 2 mg Oral tab as needed [Active]; [place] 5-325 mg Oral tab [Active]; aj1 - PMHx: 14:16 Migraines; PCOS; Trichiamonis; Anxiety; aj1 - Immunization history:: Flu vaccine is up to date. - Social history:: Smoking status: Patient/guardian denies using tobacco. - Ebola Screening: : Patient denies travel to an Ebola-affected area in the 21 days before illness onset. Vital Signs: 14:16 BP 139 / 87; Pulse 88; Resp 18; Temp 97.5(TE); Pulse Ox 100% on R/A; Weight 113.4 kg aj1 (R); Height 5 ft. 2 in. (157.48 cm) (R); Pain 10/10; 17:35 BP 135 / 74; Pulse 84; Resp 16; Temp 97.6; Pulse Ox 98% on R/A; la1 14:16 Body Mass Index 45.73 (113.40 kg, 157.48 cm) aj1 MDM: 17:20 Patient medically screened. [facility] 11/28 14:58 Order name: Basic Metabolic Panel; Complete Time: 15:45 kdr 11/28 14:58 Order name: CBC with Diff; Complete Time: 17:18 kdr 11/28 14:58 Order name: Creatinine for Radiology; Complete Time: 17:18 kdr 11/28 14:58 Order name: Hepatic Function; Complete Time: 15:45 kdr 11/28 14:58 Order name: Lipase; Complete Time: 15:45 kdr 11/28 15:59 Order name: Urine Dipstick--Ancillary (enter results); Complete Time: 17:18 bd 11/28 14:58 Order name: IV Saline Lock; Complete Time: 15:24 kdr 11/28 14:58 Order name: Labs collected and sent; Complete Time: 15:24 kdr 11/28 14:58 Order name: CT Abd/Pelvis - W/Contrast; Complete Time: 17:18 kdr 11/28 15:59 Order name: Urine --Ancillary (enter results); Complete Time: 17:18 bd Administered Medications: No medications were administered Disposition: 11/28/17 17:20 Discharged to Home. Impression: Abdominal and pelvic pain, Seroma drainiage. - Condition is Stable. - Discharge Instructions: Abdominal Pain, Adult, [id number], Seroma. - Prescriptions for Tylenol- Codeine #3 300-30 mg Oral Tablet - take 2 tablets by ORAL route every 6 hours As needed; 12 tablet. Zofran 4 mg Oral Tablet - take 1 tablet by ORAL route every 4-6 hours As needed; 16 tablet. - Medication Reconciliation Form, Thank You Letter, Prescription Opioid Use form. - Follow up: Abdullahi Guan MD; When: 2 - 3 days; Reason: If symptoms return, Further diagnostic work-up, Recheck today's complaints, Continuance of care, Re-evaluation by your physician. - Problem is new. - Symptoms have improved. Addendum: 12/09/2017 22:47 Addendum: CC: Bleeding from incision HPI: The patient had abdominal surgery on the 10th k dr of this month and today, felt a pop in her abdomen and then a lot of bleeding from the incision. There was not any purulent drainage and minimal pain. She has had no other associated s/s . Addendum: ROS: Const: No fever, chills or weight loss, Eyes: no visual changes or c/o, Neck: no pain or injury, CV: no CP or palpitations, Resp: no SOB, cough or congestion, Abd: no n/v/d or pain, she did have sudden drainage from her abdominal wound Back: no pain or injury, : no pain or bleeding, MS/Ext: no pain, injury, swelling, tingling, Skin: no lacerations, pain, injury, skin turgor good, Neuro: CN grossly intact and no other deficits, Psych: Appropriate for age, Allergy/Immunology: no rashes or other s/s, Endo: no evidence of polyuria, polydipsia, temperature control or other s/s . Addendum: Exam: Const: WDWN WF in NAD, Head/Face: no injury, pain or deformity, Eyes: PERRLA, ENT: no pain, injury or bleeding, Neck: no pain, injury or deformity, full ROM, Chest/Axilla: No pain, injury or deformity, CV: no rubs, gallops, murmurs, regular rate, Resp: CTAB, regular rate, Abd/GI: soft, NT, BS present in all quads and normal, There is a low horizontal incision that has a small area on the right lateral aspect where there is a small to moderate amount of serosanguinous material draining. There is no purulent material draining or being expressed. Back: no injury or deformity, full ROM, MS/Extremity: no injury or deformity, FROM, distal pulses good and equal, Skin: no rashes, ecchymosis skin turgor good, Neuro: CN grossly intact, no other neuro deficits, Psych: appropriate for age, no SI/HI, no depression . Addendum: MDM (Discharge) All VS and nursing notes reviewed. The patient was counseled on the results and need for follow-up. The patient was discharged in stable condition. They were happy with the care they received and the plan for d/c and follow-up. . Signatures: Dispatcher [employer] Winnie Lundberg RN RN aj1 Anastacio Valera MD MD kdr Attema, Lee, RN RN la1 Corrections: (The following items were deleted from the chart) 11/28 17:35 17:20 11/28/2017 17:20 Discharged to Home. Impression: Abdominal and pelvic pain; la1 Seroma drainiage. Condition is Stable. Forms are Medication Reconciliation Form, Thank You Letter, Antibiotic Education, Prescription Opioid Use. Follow up: Abdullahi Guan; When: 2 - 3 days; Reason: If symptoms return, Further diagnostic work-up, Recheck today's complaints, Continuance of care, Re-evaluation by your physician. Problem is new. Symptoms have improved. kdr
[2017-11-28 17:43] VITALS: BP 135/74; TEMP 97.6; O2SAT 98
== END 2017-11-28 17:35 | disposition home or self-care (01) ==
LOC: ER 13:52
DX: T88.8XXA Other specified complications of surgical and medical care, not elsewhere classified, initial encounter (principal); R10.2 Pelvic and perineal pain; F41.9 Anxiety disorder, unspecified
CPT/HCPCS: 36415; 74177; 80048; 80076; 81003; 81025; 83690; 85025; 99284; Q9967

== ENCOUNTER 2018-03-07 14:15 | Emergency (ER) | payer MEDICAID ==
[2018-03-07] MEDS ORDERED: NA CHLORIDE 0.9% 1,000 ML ONE (14:49)
[2018-03-07] MEDS ORDERED: ONDANSETRON 4 MG/2 ML VIAL ONE (14:49)
[2018-03-07] MEDS ORDERED: FAMOTIDINE 20 MG/2 ML VIAL IV ONE (14:50)
[2018-03-07 15:04] LABS: Absolute Lymphocytes (CBC) 2.3 K/uL (0.7-4.9); Absolute Monocytes 0.4 K/uL (0.1-1.3); Absolute Neutrophil 4.9 K/uL (1.8-8.0); Basophils % 0.8 % (0-1.3); Eosinophils % 1.7 % (0-4.4); Hematocrit 39.1 % (36.0-45.0); Lymphocytes % 29.7 % (15.3-44.8); MPV 6.7 fL (7.6-11.3); Monocytes % 4.7 % (3.3-12.3); RBC Red Blood Cell Count 4.78 M/uL (3.86-4.86)
[2018-03-07 15:22] LABS: ALT/SGPT 26 U/L (12-78); AST/SGOT 14 U/L (15-37); Albumin 3.6 g/dL (3.4-5.0); Alkaline Phosphatase 80 U/L (45-117); BUN Blood Urea Nitrogen 10 mg/dL (7-18); Bicarbonate 27 mmol/L (21-32); Bilirubin Direct 0.1 mg/dL (0-0.2); Bilirubin Total 0.6 mg/dL (0.2-1.0); Glucose Level 115 mg/dL (74-106); Lipase 100 U/L (73-393); Potassium 3.4 mmol/L (3.5-5.1); Protein, Total 7.1 g/dL (6.4-8.2); Sodium Level 142 mmol/L (136-145)
--- NOTE | 2018-03-07 16:23 | RAD REPORT ---
EXAM DESCRIPTION: US - Abdomen Exam Limited - 03/07/2018 3:44 pm CLINICAL HISTORY: Abdominal pain COMPARISON: CT November 2017 FINDINGS: Gallbladder is contracted. This significantly limits ability to evaluate the lumen for sto beverley, sludge or mass. Wall thickness is accentuated due to the contraction. No common duct stone or biliary tree dilatation identified. IMPRESSION: Very limited gallbladder assessment due to contracted state of the gallbladder. No obvio us abnormality seen. Exam can be repeated when the patient is adequately fasting.
--- NOTE | 2018-03-07 18:09 | RAD REPORT ---
EXAM DESCRIPTION: CT - Abdomen Pelvis W Contrast - 03/07/2018 5:53 pm CLINICAL HISTORY: Abdominal pain COMPARISON: CT November 2017 TECHNIQUE: Biphasic, helical CT imaging of the abdomen and pelvis was performed following 100 ml non -ionic IV contrast. No oral contrast administered. All CT scans are performed using dose optimization technique as appropriate and may include automated exposure control or mA/KV adjustment according to patient size. FINDINGS: No suspicious findings in the lung bases. The liver, spleen, and pancreas show no suspicious findings. Gallbladder and biliary tree are also wi thout suspicious finding. Symmetric renal function is seen with no hydronephrosis or suspicious renal mass. No pyelonephritis o r acute parenchymal process. No bladder abnormalities. No adrenal abnormalities. No dilated bowel loops or bowel wall thickening. Uterus and ovaries show no suspicious findings. No f ree air, free fluid or inflammatory stranding. No hernia, mass or bulky lymphadenopathy. No suspicious bony findings. IMPRESSION: Contrast enhanced CT abdomen and pelvis showing no significant or suspicious finding. N o significant change from comparison.
--- NOTE | 2018-03-07 18:11 | EDPHYS ---
Physician Documentation [facility] Name: Omayra Parra Age: 27 yrs Sex: Female : 1990 Arrival Date: 03/07/2018 Time: 14:17 Bed 15 Private MD: LEIDY RAMIRES ED Physician Anastacio Valera HPI: 03/07 14:36 This 27 yrs old Female presents to ER via Ambulatory with complaints of kb Nausea. 14:36 The patient presents to the emergency department with nausea, vomiting, diarrhea, kb abdominal pain. Onset: The symptoms/episode began/occurred 4 day(s) ago. Possible causes: unknown. The symptoms are aggravated by food , The symptoms are alleviated by nothing. Associated signs and symptoms: Pertinent positives: abdominal pain, diarrhea, nausea, vomiting, Pertinent negatives: anorexia, belching, constipation, dysuria, fever, flatulence, GI bleeding, hematuria, vaginal discharge. Severity of symptoms: At their worst the symptoms were moderate in the emergency department the symptoms are unchanged. The patient has not experienced similar symptoms in the past. The patient has not recently seen a physician. 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 - Social history:: Smoking status: Patient/guardian denies using tobacco, the patient reports quitting approximately 1.5 years ago. - Ebola Screening: : Patient denies exposure to infectious person Patient denies travel to an Ebola-affected area in the 21 days before illness onset. ROS: 14:35 Constitutional: Negative for fever, chills, and weight loss, Neck: Negative for injury, kb pain, and swelling, Cardiovascular: Negative for chest pain, palpitations, and edema, Respiratory: Negative for shortness of breath, cough, wheezing, and pleuritic chest pain, Back: Negative for injury and pain, : Negative for injury, bleeding, discharge, and swelling, MS/Extremity: Negative for injury and deformity, Skin: Negative for injury, rash, and discoloration, Neuro: Negative for headache, weakness, numbness, tingling, and seizure. 14:35 Abdomen/GI: Positive for abdominal pain, nausea, vomiting, and diarrhea, abdominal cramps, Negative for constipation, abdominal distension, anorexia. Exam: 14:36 Constitutional: This is a well developed, well nourished patient who is awake, alert, kb and in no acute distress. Head/Face: Normocephalic, atraumatic. ENT: Nares patent. No nasal discharge, no septal abnormalities noted. Tympanic membranes are normal and external auditory canals are clear. Oropharynx with no redness, swelling, or masses, exudates, or evidence of obstruction, uvula midline. Mucous membranes moist. Neck: Trachea midline, no thyromegaly or masses palpated, and no cervical lymphadenopathy. Supple, full range of motion without nuchal rigidity, or vertebral point tenderness. No Meningismus. Chest/axilla: Normal chest wall appearance and motion. Nontender with no deformity. No lesions are appreciated. Cardiovascular: Regular rate and rhythm with a normal S1 and S2. No gallops, murmurs, or rubs. Normal PMI, no JVD. No pulse deficits. Respiratory: Lungs have equal breath sounds bilaterally, clear to auscultation and percussion. No rales, rhonchi or wheezes noted. No increased work of breathing, no retractions or nasal flaring. Skin: Warm, dry with normal turgor. Normal color with no rashes, no lesions, and no evidence of cellulitis. MS/ Extremity: Pulses equal, no cyanosis. Neurovascular intact. Full, normal range of motion. Neuro: Awake and alert, GCS 15, oriented to person, place, time, and situation. Cranial nerves II-XII grossly intact. Motor strength 5/5 in all extremities. Sensory grossly intact. Cerebellar exam normal. Normal gait. 14:36 Abdomen/GI: Inspection: obese Bowel sounds: normal, in all quadrants, Palpation: soft, in all quadrants, mild abdominal tenderness, in the right lower quadrant. Vital Signs: 14:28 BP 119 / 95; Pulse 90; Resp 16; Temp 97.8(TE); Pulse Ox 98% on R/A; Height 5 ft. 2 in. ss (157.48 cm); Pain 9/10; 15:28 BP 138 / 75; Pulse 75; Resp 17; Pulse Ox 97% on R/A; rb1 16:00 BP 128 / 83; Pulse 73; Resp 16; Pulse Ox 98% on R/A; rb1 17:00 BP 111 / 71; Pulse 64; Resp 17; Pulse Ox 99% on R/A; rb1 18:00 BP 103 / 60; Pulse 66; Resp 17; Pulse Ox 100% ; rb1 MDM: 14:21 Patient medically screened. kb 14:35 Data reviewed: vital signs, nurses notes. Data interpreted: Pulse oximetry: on room air kb is 98 %. Interpretation: normal. 18:10 Counseling: I had a detailed discussion with the patient and/or guardian regarding: the kb historical points, exam findings, and any diagnostic results supporting the discharge/admit diagnosis, lab results, radiology results, the need for outpatient follow up, a family practitioner, to return to the emergency department if symptoms worsen or persist or if there are any questions or concerns that arise at home. 03/07 14:34 Order name: Basic Metabolic Panel 03/07 14:34 Order name: CBC with Diff 03/07 14:34 Order name: Hepatic Function 03/07 14:34 Order name: Lipase 03/07 15:19 Order name: CBC with Automated Diff; Complete Time: 15:26 EDKY 03/07 15:23 Order name: Basic Metabolic Panel; Complete Time: 15:26 EDKY 03/07 15:23 Order name: Liver (Hepatic) Function; Complete Time: 15:26 EDKY 03/07 15:23 Order name: Lipase; Complete Time: 15:26 EDKY 03/07 15:26 Order name: US Abdomen Limited; Complete Time: 16:48 kb 03/07 16:02 Order name: CT Abd/Pelvis - W/Contrast; Complete Time: 18:09 kb 03/07 17:28 Order name: Urine Dipstick--Ancillary (enter results) 03/07 17:28 Order name: Urine --Ancillary (enter results) 03/07 14:34 Order name: IV Saline Lock; Complete Time: 15:02 kb 03/07 14:34 Order name: Labs collected and sent; Complete Time: 15:03 kb Administered Medications: 14:50 Drug: NS 0.9% 1000 ml Route: IV; Rate: 1000 ml; Site: right antecubital; rb1 15:07 Follow up: IV Status: Completed infusion rb1 14:50 Drug: Zofran 2 mg Route: IVP; Site: right antecubital; rb1 15:05 Follow up: Response: No adverse reaction rb1 14:50 Drug: Pepcid 20 mg Route: IVP; Site: right antecubital; rb1 15:05 Follow up: Response: No adverse reaction; Nausea is decreased rb1 Disposition: 03/08 06:41 Co-signature as Attending Physician, Anastacio Valera MD I agree with the assessment and kdr plan of care. Disposition: 03/07/18 18:10 Discharged to Home. Impression: Generalized abdominal pain, Nausea and vomiting. - Condition is Stable. - Discharge Instructions: Nausea and Vomiting, Adult, [id number], Abdominal Pain, Adult, [id number]. - Prescriptions for Bentyl 20 mg Oral Tablet - take 1 tablet by ORAL route every 6 hours As needed; 20 tablet. Zofran 4 mg Oral Tablet - take 1 tablet by ORAL route every 6 hours As needed; 20 tablet. - Medication Reconciliation Form, Thank You Letter, Antibiotic Education, Prescription Opioid Use form. - Follow up: Emergency Department; When: As needed; Reason: Worsening of condition. Follow up: Private Physician; When: 2 - 3 days; Reason: Recheck today's complaints, Continuance of care, Re-evaluation by your physician. Signatures: Dispatcher [employer] EDKY Rama Engel, NIKOLAI-Saima CARP-Anastacio Juares MD MD [facility] Rachell Rodriguez RN RN ss Estefani Palomo RN RN rb1 Corrections: (The following items were deleted from the chart) 03/07 18:30 18:10 03/07/2018 18:10 Discharged to Home. Impression: Generalized abdominal pain; rb1 Nausea and vomiting. Condition is Stable. Forms are Medication Reconciliation Form, Thank You Letter, Antibiotic Education, Prescription Opioid Use. Follow up: Emergency Department; When: As needed; Reason: Worsening of condition. Follow up: Private Physician; When: 2 - 3 days; Reason: Recheck today's complaints, Continuance of care, Re-evaluation by your physician. kb
--- NOTE | 2018-03-07 18:11 | ER ---
Nurse's Notes [facility] Name: Omayra Parra Age: 27 yrs Sex: Female : 1990 Arrival Date: 03/07/2018 Time: 14:17 Bed 15 Private MD: LEIDY RAMIRES Diagnosis: Generalized abdominal pain;Nausea and vomiting Presentation: 03/07 14:25 Presenting complaint: Patient states: nausea, headaches, abd cramping and neon green ss diarrhea x days. Denies fever. Transition of care: patient was not received from another setting of care. Onset of symptoms was March 04, 2018. Risk Assessment: Do you want to hurt yourself or someone else? Patient reports no desire to harm self or others. Initial Sepsis Screen: Does the patient meet any 2 criteria? No. Patient's initial sepsis screen is negative. Does the patient have a suspected source of infection? No. Patient's initial sepsis screen is negative. Care prior to arrival: None. 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 - Social history:: Smoking status: Patient/guardian denies using tobacco, the patient reports quitting approximately 1.5 years ago. - Ebola Screening: : Patient denies exposure to infectious person Patient denies travel to an Ebola-affected area in the 21 days before illness onset. Screenin:20 Abuse screen: Denies threats or abuse. Nutritional screening: No deficits noted. rb1 Tuberculosis screening: No symptoms or risk factors identified. Fall Risk None identified. Assessment: 14:20 General: Appears uncomfortable, obese, Behavior is calm, cooperative, Reports chills rb1 for feeling ill for > 3 days. Pain: Complains of pain in right lower quadrant Pain currently is 9 out of 10 on a pain scale. Pain began Sunday. Pain: Complains of pain in Headache. Neuro: Level of Consciousness is awake, alert, obeys commands, Oriented to person, place, time, situation. Cardiovascular: Capillary refill < 3 seconds is brisk in bilateral fingers. Respiratory: Airway is patent Respiratory effort is even, unlabored, Respiratory pattern is regular, symmetrical. GI: Abdomen is non-distended, Reports nausea, vomiting, Parent/caregiver reports the patient having bright green stools. : No signs and/or symptoms were reported regarding the genitourinary system. Derm: Skin is pink, warm \T\ dry. Musculoskeletal: Range of motion: intact in all extremities. 15:20 Reassessment: Patient appears in no apparent distress at this time. No changes from rb1 previously documented assessment. 16:10 Reassessment: Patient and/or family updated on plan of care and expected duration. Pain rb1 level reassessed. Patient is alert, oriented x 3, equal unlabored respirations, skin warm/dry/pink. Pt. c/o pain at the IV site, infusion was stopped and a new IV will be initiated. 17:10 Reassessment: Patient appears in no apparent distress at this time. Patient and/or rb1 family updated on plan of care and expected duration. Pain level reassessed. Patient is alert, oriented x 3, equal unlabored respirations, skin warm/dry/pink. Patient states symptoms have improved. 18:10 Reassessment: Patient appears in no apparent distress at this time. No changes from rb1 previously documented assessment. Vital Signs: 14:28 BP 119 / 95; Pulse 90; Resp 16; Temp 97.8(TE); Pulse Ox 98% on R/A; Height 5 ft. 2 in. ss (157.48 cm); Pain 9/10; 15:28 BP 138 / 75; Pulse 75; Resp 17; Pulse Ox 97% on R/A; rb1 16:00 BP 128 / 83; Pulse 73; Resp 16; Pulse Ox 98% on R/A; rb1 17:00 BP 111 / 71; Pulse 64; Resp 17; Pulse Ox 99% on R/A; rb1 18:00 BP 103 / 60; Pulse 66; Resp 17; Pulse Ox 100% ; rb1 ED Course: 14:17 Patient arrived in ED. sb2 14:18 LEIDY RAMIRES is Private Physician. sb2 14:20 Patient has correct armband on for positive identification. Placed in gown. Bed in low rb1 position. Call light in reach. Pulse ox on. NIBP on. Warm blanket given. 14:21 [facility] Engel [facility]C [facility]. kb 14:21 Anastacio Valera MD is Attending Physician. kb 14:26 Triage completed. ss 14:27 Estefani Palomo, RN is Primary Nurse. rb1 14:28 Arm band placed on right wrist. ss 14:50 Inserted saline lock: 22 gauge in right antecubital area, using aseptic technique. rb1 Blood collected. 15:59 US Abdomen Limited In Process Unspecified. EDMS 16:05 Radiology exam delayed due to test not completed at this time. [id number] 16:15 Inserted saline lock: 22 gauge in left antecubital area, using aseptic technique. rb1 ,using aseptic technique. Inserted by ANSELMO Lovett. 16:18 IV discontinued, intact, bleeding controlled, No redness/swelling at site. Pressure rb1 dressing applied, 22 G R AC by ANSELOM Lovett. 17:45 Patient moved to SD via wheelchair. 2 17:53 CT completed. Patient tolerated procedure well. Patient moved back from CT. 2 17:59 CT Abd/Pelvis - W/Contrast In Process Unspecified. EDMS 18:29 No provider procedures requiring assistance completed. IV discontinued, intact, rb1 bleeding controlled, No redness/swelling at site. Pressure dressing applied. Administered Medications: 14:50 Drug: NS 0.9% 1000 ml Route: IV; Rate: 1000 ml; Site: right antecubital; rb1 15:07 Follow up: IV Status: Completed infusion rb1 14:50 Drug: Zofran 2 mg Route: IVP; Site: right antecubital; rb1 15:05 Follow up: Response: No adverse reaction rb1 14:50 Drug: Pepcid 20 mg Route: IVP; Site: right antecubital; rb1 15:05 Follow up: Response: No adverse reaction; Nausea is decreased rb1 Outcome: 18:10 Discharge ordered by . kb 18:29 Discharged to home ambulatory. rb1 18:29 Condition: stable 18:29 Discharge instructions given to patient, Instructed on discharge instructions, follow up and referral plans. medication usage, Demonstrated understanding of instructions, follow-up care, medications, Prescriptions given X 2. 18:30 Patient left the ED. rb1 Signatures: Dispatcher [employer] EDUT Rama Engel FNP-C FNP-Rachell Morin RN RN ss Estefani Palomo, RN RN rb1 Carissa Jacques 2 Bailee Bates2 Flora Headley6
[2018-03-07 18:39] VITALS: TEMP 97.8
[2018-03-07 18:44] VITALS: BP 103/60; O2SAT 100
[2018-03-07 19:54] LABS: Urine Blood TRACE (NEG); Urine Glucose NEGATIVE (NEG); Urine Protein NEGATIVE (NEG); Urine pH 7.5 (5.0-7.0)
== END 2018-03-07 18:30 | disposition home or self-care (01) ==
LOC: ER 14:15
DX: R10.84 Generalized abdominal pain (principal); F41.9 Anxiety disorder, unspecified; Z87.891 Personal history of nicotine dependence
CPT/HCPCS: 36415; 74177; 76705; 80048; 80076; 81003; 81025; 83690; 85025; 96374; 96375; 99284; J2405; J7030; Q9967

== ENCOUNTER 2018-03-20 13:02 | Emergency (ER) | payer MEDICAID ==
[2018-03-20] MEDS ORDERED: MORPHINE 4 MG/ML SYR ONE (14:36)
[2018-03-20] MEDS ORDERED: NA CHLORIDE 0.9% 1,000 ML ONE (14:36)
[2018-03-20] MEDS ORDERED: ONDANSETRON 4 MG/2 ML VIAL ONE (14:36)
[2018-03-20 14:53] LABS: Absolute Lymphocytes (CBC) 1.8 K/uL (0.7-4.9); Absolute Monocytes 0.4 K/uL (0.1-1.3); Absolute Neutrophil 5.2 K/uL (1.8-8.0); Basophils % 0.5 % (0-1.3); Eosinophils % 1.7 % (0-4.4); Hematocrit 38.7 % (36.0-45.0); Lymphocytes % 24.2 % (15.3-44.8); MPV 6.7 fL (7.6-11.3); RBC Red Blood Cell Count 4.73 M/uL (3.86-4.86)
--- NOTE | 2018-03-20 15:06 | RAD REPORT ---
EXAM DESCRIPTION: CT - Stone Protocol - 03/20/2018 2:43 pm CLINICAL HISTORY: Abdominal pain. Left flank pain COMPARISON: None. TECHNIQUE: Computed axial tomography of the abdomen pelvis was obtained without oral or IV contrast. Lack of IV and oral contrast limits evaluation of solid organs, bowel, and vessels. Coronal reformat tali images were obtained and reviewed. All CT scans are performed using dose optimization technique as appropriate and may include automated exposure control or mA/KV adjustment according to patient size. FINDINGS: A renal calculus is not seen. An ureteral calculus is not noted. A bladder calculus is not present. The liver, spleen, pancreas and adrenals appear grossly normal There is no evidence of diverticulitis. The appendix appears normal Left ovary is enlarged measuring 5.2 centimeters IMPRESSION: Negative for a genitourinary calculus Enlargement of the left ovary. Pelvic ultrasound recommended
[2018-03-20 15:19] LABS: Urine Blood TRACE (NEG); Urine Glucose NEGATIVE (NEG); Urine Protein TRACE (NEG)
[2018-03-20 15:30] LABS: Urine Bacteria 20-50 /HPF (<20); Urine Culture Reflex Order REFLEXED; Urine Mucus 3+ /HPF (NONE SEEN); Urine RBC <5 /HPF (NONE SEEN)
[2018-03-20 16:07] LABS: ALT/SGPT 24 U/L (12-78); AST/SGOT 13 U/L (15-37); Albumin 3.7 g/dL (3.4-5.0); Alkaline Phosphatase 83 U/L (45-117); BUN Blood Urea Nitrogen 11 mg/dL (7-18); Bicarbonate 27 mmol/L (21-32); Bilirubin Direct 0.2 mg/dL (0-0.2); Bilirubin Total 1.1 mg/dL (0.2-1.0); Glucose Level 91 mg/dL (74-106); Lipase 74 U/L (73-393); Potassium 3.7 mmol/L (3.5-5.1); Protein, Total 7.1 g/dL (6.4-8.2); Sodium Level 141 mmol/L (136-145)
--- NOTE | 2018-03-20 16:08 | RAD REPORT ---
EXAM DESCRIPTION: US - Pelvis Complete - 03/20/2018 3:59 pm CLINICAL HISTORY: back pain Pelvic pain. COMPARISON: Transvaginal Study Probe dated 08/31/2017; Stone Protocol dated 03/20/2018 FINDINGS: The uterus is normal in size, shape and echotexture. The uterus measures 9.1 x 5.5 x 4.4 c m. The endometrial stripe measures 8 mm, normal. The left ovary appears enlarged in size. The right ovary appears normal in size. The right ovary ayan sures 3.3 x 3.1 x 2.0 cm. The left ovary measures 4.2 x 4.4 x 4.0 cm. The left ovary contains rounde d mildly echogenic circumscribed lesion measuring 3.5 cm. Normal Doppler blood flow was demonstrated to both ovaries. No significant pelvic ascites. IMPRESSION: 3.5 cm left ovarian rounded lesion may represent complex cyst or solid ovarian mass.Foll ow-up pelvic ultrasound is recommended 6 weeks for surveillance purposes.
[2018-03-20] MEDS ORDERED: KETOROLAC 30 MG/ML INJ ONE (16:37)
--- NOTE | 2018-03-20 17:21 | ER ---
Nurse's Notes [facility] Name: Omayra Parra Age: 27 yrs Sex: Female : 1990 Arrival Date: 03/20/2018 Time: 13:04 Bed 9 Private MD: LEIDY RAMIRES Diagnosis: Low back pain;Urinary tract infection, site not specified Presentation: 03/20 13:25 Presenting complaint: Left flank pain and nausea x 2 days. Transition of care: patient hb was not received from another setting of care. Onset of symptoms was March 19, 2018. Risk Assessment: Do you want to hurt yourself or someone else? Patient reports no desire to harm self or others. Care prior to arrival: None. 13:25 Method Of Arrival: Ambulatory hb 13:25 Acuity: GAYE 3 hb 17:44 Initial Sepsis Screen: Does the patient meet any 2 criteria? No. Patient's initial ss sepsis screen is negative. Does the patient have a suspected source of infection? No. Patient's initial sepsis screen is negative. 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 - Social history:: Smoking status: Patient/guardian denies using tobacco. - Ebola Screening: : No symptoms or risks identified at this time. Screenin:40 Abuse screen: Denies threats or abuse. Denies injuries from another. Nutritional hb screening: No deficits noted. Tuberculosis screening: No symptoms or risk factors identified. Fall Risk None identified. Assessment: 14:15 General: Appears in no apparent distress. uncomfortable, Behavior is calm, cooperative. hb Pain: Pain currently is 9 out of 10 on a pain scale. Neuro: Level of Consciousness is awake, alert, obeys commands, Oriented to person, place, time, situation. Cardiovascular: Capillary refill < 3 seconds Patient's skin is warm and dry. Respiratory: Airway is patent Trachea midline Respiratory effort is even, unlabored, Respiratory pattern is regular, symmetrical. GI: Reports lower abdominal pain, upper abdominal pain, nausea. : No signs and/or symptoms were reported regarding the genitourinary system. EENT: No signs and/or symptoms were reported regarding the EENT system. Derm: Skin is intact, is healthy with good turgor, Skin is pink, warm \T\ dry. Musculoskeletal: No signs and/or symptoms reported regarding the musculoskeletal system. 15:00 Reassessment: Patient appears in no apparent distress at this time. Patient and/or hb family updated on plan of care and expected duration. Pain level reassessed. Patient is alert, oriented x 3, equal unlabored respirations, skin warm/dry/pink. 16:00 Reassessment: Patient appears in no apparent distress at this time. No changes from previously documented assessment. Patient and/or family updated on plan of care and expected duration. Pain level reassessed. Patient is alert, oriented x 3, equal unlabored respirations, skin warm/dry/pink. 17:37 Reassessment: Patient appears in no apparent distress at this time. Patient is alert, ss oriented x 3, equal unlabored respirations, skin warm/dry/pink. Patient states feeling better. Patient states symptoms have improved. Vital Signs: 13:24 BP 139 / 104; Pulse 85; Resp 16; Temp 97.4; Pulse Ox 100% on R/A; Pain 10/10; hb ED Course: 13:04 Patient arrived in ED. sb2 13:04 LEIDY RAMIRES is Private Physician. sb2 13:25 Triage completed. hb 13:25 Arm band placed on. hb 14:02 Jaron Small PA is PHCP. [facility] 14:02 Cristofer Lorenzana MD is Attending Physician. jmm 14:38 Inserted saline lock: 22 gauge in right antecubital area, using aseptic technique. hb Blood collected. 14:40 Patient has correct armband on for positive identification. Bed in low position. Call hb light in reach. Side rails up X 1. 14:44 CT Stone Protocol In Process Unspecified. EDMS 16:00 US Pelvis Complete In Process Unspecified. EDMS 16:34 Helen Mccain, RN is Primary Nurse. hb 17:37 No provider procedures requiring assistance completed. IV discontinued, intact, ss bleeding controlled, No redness/swelling at site. Pressure dressing applied. Administered Medications: 14:40 Drug: morphine 4 mg Route: IVP; Site: right antecubital; hb 15:30 Follow up: Response: No adverse reaction; Pain is decreased hb 14:40 Drug: Zofran 4 mg Route: IVP; Site: right antecubital; hb 15:30 Follow up: Response: No adverse reaction hb 16:35 Drug: Ketorolac 30 mg Route: IVP; Site: right antecubital; hb 17:44 Follow up: Response: No adverse reaction; Pain is decreased ss Outcome: 17:21 Discharge ordered by . julien 17:37 Discharged to home with family. ss 17:37 Condition: good 17:37 Discharge instructions given to patient. 17:45 Patient left the ED. ss Signatures: Dispatcher [employer] EDMS Jaron Small PA PA jmm Smirch, Shelby, RN RN ss Baxter, Heather, RN RN Bailee Bates sb2
--- NOTE | 2018-03-20 17:21 | EDPHYS ---
Physician Documentation [facility] Name: Omayra Parra Age: 27 yrs Sex: Female : 1990 Arrival Date: 03/20/2018 Time: 13:04 Bed 9 Private MD: LEIDY RAMIRES ED Physician Cristofer Lorenzana HPI: 03/20 13:07 This 27 yrs old Female presents to ER via Ambulatory with complaints of Flank jmm Pain. 13:07 The patient complains of pain in the left flank. The pain does not radiate. Onset: The jmm symptoms/episode began/occurred gradually, 1 day(s) ago. Modifying factors: The symptoms are alleviated by nothing. the symptoms are aggravated by nothing. Associated signs and symptoms: Pertinent positives: nausea. This is a 27 year old female that presents to the ED with complaints of left sided back pain. Patient denies abdominal pain, denies diarrhea, denies vomiting, admits to nausea. Patient denies fever. . 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 - Social history:: Smoking status: Patient/guardian denies using tobacco. - Ebola Screening: : No symptoms or risks identified at this time. ROS: 13:07 Constitutional: Negative for fever, chills, and weight loss, Cardiovascular: Negative jmm for chest pain, palpitations, and edema, Respiratory: Negative for shortness of breath, cough, wheezing, and pleuritic chest pain. 13:07 MS/Extremity: Negative for injury and deformity, Skin: Negative for injury, rash, and discoloration, Neuro: Negative for headache, weakness, numbness, tingling, and seizure, Psych: Negative for depression, anxiety, suicide ideation, homicidal ideation, and hallucinations. 13:07 Back: Positive for flank pain. 13:07 All other systems are negative. Exam: 13:07 Constitutional: This is a well developed, well nourished patient who is awake, alert, jmm and in no acute distress. Head/Face: atraumatic. Eyes: EOMI, no conjunctival erythema appreciated ENT: Moist Mucus Membranes Neck: Trachea midline, Supple Chest/axilla: Normal chest wall appearance and motion. Cardiovascular: Regular rate and rhythm. No edema appreciated Respiratory: Normal respirations, no respiratory distress appreciated 13:07 Abdomen/GI: Inspection: abdomen appears normal, Bowel sounds: normal, Palpation: abdomen is soft and non-tender, in all quadrants. 13:07 Back: Left lower back pain on palpation, no midline tenderness is appreciated. 13:07 Musculoskeletal/extremity: ROM: intact in all extremities. 13:07 Skin: Appearance: Color: normal in color. 13:07 Neuro: Orientation: is normal, Mentation: is normal, Memory: is normal. 13:07 Psych: Behavior/mood is pleasant, cooperative. Vital Signs: 13:24 BP 139 / 104; Pulse 85; Resp 16; Temp 97.4; Pulse Ox 100% on R/A; Pain 10/10; hb MDM: 14:18 Patient medically screened. [facility] 17:15 Data reviewed: vital signs, nurses notes. Counseling: I had a detailed discussion with [facility] the patient and/or guardian regarding: the historical points, exam findings, and any diagnostic results supporting the discharge/admit diagnosis, radiology results, the need for outpatient follow up, to return to the emergency department if symptoms worsen or persist or if there are any questions or concerns that arise at home. Response to treatment: the patient's symptoms have markedly improved after treatment, and as a result, I will discharge patient. ED course: Pain is relieved in the ED. CT negative. Patient is advised to follow up with PCP for reevaluation. Patient given return precautions. Patient understood and agrees with the plan. . 03/20 13:07 Order name: Urine Microscopic Only; Complete Time: 15:33 snw 03/20 14:19 Order name: Basic Metabolic Panel; Complete Time: 16:10 [facility] 03/20 14:19 Order name: CBC with Diff; Complete Time: 14:54 [facility] 03/20 14:19 Order name: Creatinine for Radiology; Complete Time: 15:12 [facility] 03/20 14:19 Order name: Hepatic Function; Complete Time: 16:10 [facility] 03/20 14:19 Order name: Lipase; Complete Time: 16:10 [facility] 03/20 14:19 Order name: CT Stone Protocol; Complete Time: 15:12 [facility] 03/20 14:25 Order name: Urine Dipstick--Ancillary (enter results); Complete Time: 15:33 ss 03/20 14:25 Order name: Urine --Ancillary (enter results); Complete Time: 15:33 ss 03/20 15:13 Order name: US Pelvis Complete; Complete Time: 16:14 [facility] 03/20 15:32 Order name: Urine Culture [facility] 03/20 13:07 Order name: Urine Test (obtain specimen); Complete Time: 14:12 [facility] 03/20 13:07 Order name: Urine Dipstick-Ancillary (obtain specimen); Complete Time: 14:12 [facility] 03/20 14:19 Order name: IV Saline Lock; Complete Time: 14:40 [facility] 03/20 14:19 Order name: Labs collected and sent; Complete Time: 14:40 [facility] Administered Medications: 14:40 Drug: morphine 4 mg Route: IVP; Site: right antecubital; hb 15:30 Follow up: Response: No adverse reaction; Pain is decreased hb 14:40 Drug: Zofran 4 mg Route: IVP; Site: right antecubital; hb 15:30 Follow up: Response: No adverse reaction hb 16:35 Drug: Ketorolac 30 mg Route: IVP; Site: right antecubital; hb 17:44 Follow up: Response: No adverse reaction; Pain is decreased ss Disposition: 18:59 Co-signature as Attending Physician, Cristofer Lorenzana MD. rn Disposition: 03/20/18 17:21 Discharged to Home. Impression: Low back pain, Urinary tract infection, site not specified. - Condition is Stable. - Discharge Instructions: Back Pain, Adult, Musculoskeletal Pain, Urinary Tract Infection, Adult. - Prescriptions for Ibuprofen 800 mg Oral Tablet - take 1 tablet by ORAL route every 8 hours As needed take with food; 30 tablet. orphenadrine citrate 100 mg Oral Tablet Sustained Release - take 1 tablet by ORAL route 2 times per day As needed; 20 tablet. Keflex 500 mg Oral Capsule - take 1 capsule by ORAL route every 12 hours for 10 days; 20 capsule. - Medication Reconciliation Form, Thank You Letter, Antibiotic Education, Prescription Opioid Use form. - Follow up: Private Physician; When: 2 - 3 days; Reason: Recheck today's complaints, Continuance of care, Re-evaluation by your physician. Signatures: Dispatcher [employer], NIKOLAI-C GARBAGE DEPOT WORKER-Csnw Jaron Small PA PA [facility] Cristofer Lorenzana MD MD rn Smirch, Shelby, RN RN ss Helen Mccain RN RN Corrections: (The following items were deleted from the chart) 17:22 17:21 03/20/2018 17:21 Discharged to Home. Impression: Low back pain. Condition is [facility] Stable. Forms are Medication Reconciliation Form, Thank You Letter, Antibiotic Education, Prescription Opioid Use. Follow up: Private Physician; When: 2 - 3 days; Reason: Recheck today's complaints, Continuance of care, Re-evaluation by your physician. [facility] 17:45 17:22 03/20/2018 17:21 Discharged to Home. Impression: Low back pain; Urinary tract ss infection, site not specified. Condition is Stable. Discharge Instructions: Back Pain, Adult, Musculoskeletal Pain. Prescriptions for Ibuprofen 800 mg Oral Tablet - take 1 tablet by ORAL route every 8 hours As needed take with food; 30 tablet, orphenadrine citrate 100 mg Oral Tablet Sustained Release - take 1 tablet by ORAL route 2 times per day As needed; 20 tablet. and Forms are Medication Reconciliation Form, Thank You Letter, Antibiotic Education, Prescription Opioid Use. Follow up: Private Physician; When: 2 - 3 days; Reason: Recheck today's complaints, Continuance of care, Re-evaluation by your physician. [facility]
[2018-03-20 19:04] VITALS: BP 139/104; TEMP 97.4; O2SAT 100
== END 2018-03-20 17:45 | disposition home or self-care (01) ==
LOC: ER 13:02
DX: N39.0 Urinary tract infection, site not specified (principal); F41.9 Anxiety disorder, unspecified
CPT/HCPCS: 36415; 74176; 76377; 76856; 80048; 80076; 81003; 81015; 81025; 83690; 85025; 87086; 87088; J2405; J7030

== ENCOUNTER 2018-05-12 10:58 | Emergency (ER) | payer MEDICAID, SELFPAY ==
--- NOTE | 2018-05-12 13:18 | ER ---
Nurse's Notes [facility] Name: Omayra Parra Age: 27 yrs Sex: Female : 1990 Arrival Date: 05/12/2018 Time: 11:00 Bed 10 Private MD: Diagnosis: Toe Fracture Presentation: 05/12 11:03 Presenting complaint: Patient states: I dropped a bottle of Dr. pepper on my left 2 big la1 toes yesterday. Transition of care: patient was not received from another setting of care. Onset of symptoms was May 12, 2018. Risk Assessment: Do you want to hurt yourself or someone else? Patient reports no desire to harm self or others. Initial Sepsis Screen: Does the patient meet any 2 criteria? No. Patient's initial sepsis screen is negative. Does the patient have a suspected source of infection? No. Patient's initial sepsis screen is negative. Care prior to arrival: None. 11:03 Method Of Arrival: Ambulatory la1 11:03 Acuity: GAYE 4 la1 Historical: - Allergies: 11:03 No Known Allergies; la1 - PMHx: 11:03 Anxiety; Migraines; PCOS; Trichiamonis; la1 - Immunization history:: Adult Immunizations up to date. - Social history:: Smoking status: Patient/guardian denies using tobacco. - Ebola Screening: : No symptoms or risks identified at this time. Screenin:16 Abuse screen: Denies threats or abuse. Nutritional screening: No deficits noted. la1 Tuberculosis screening: No symptoms or risk factors identified. Fall Risk None identified. Assessment: 11:15 General: Appears in no apparent distress. Behavior is calm, cooperative. Pain: la1 Complains of pain in left first toe and left second toe. Neuro: Level of Consciousness is awake, alert, obeys commands. Cardiovascular: Capillary refill < 3 seconds Patient's skin is warm and dry. Respiratory: Airway is patent Respiratory effort is even, unlabored. GI: No signs and/or symptoms were reported involving the gastrointestinal system. : No signs and/or symptoms were reported regarding the genitourinary system. Musculoskeletal: Reports pain in left first toe and left second toe. 13:23 Reassessment: Patient appears in no apparent distress at this time. No changes from la1 previously documented assessment. Patient and/or family updated on plan of care and expected duration. Pain level reassessed. Vital Signs: 11:04 BP 141 / 73; Pulse 95; Resp 16; Temp 97.5; Pulse Ox 98% on R/A; Weight 113.4 kg; Height la1 5 ft. 2 in. (157.48 cm); 11:04 Body Mass Index 45.73 (113.40 kg, 157.48 cm) la1 ED Course: 11:00 Patient arrived in ED. as 11:03 Triage completed. la1 11:04 Arm band placed on left wrist. la1 11:16 Jaron Small PA is PHCP. jmm 11:16 Jasbir Coleamn MD is Attending Physician. jmm 11:16 Call light in reach. la1 12:40 Foot Left 3 View XRAY In Process Unspecified. EDMS 13:17 Alon Valladares DPM is Referral Physician. [facility] 13:23 Fredis Johnson, RN is Primary Nurse. la1 13:23 No provider procedures requiring assistance completed. Patient did not have IV access la1 during this emergency room visit. Administered Medications: No medications were administered Outcome: 13:17 Discharge ordered by . jmm 13:23 Discharged to home ambulatory. la1 13:23 Condition: stable 13:23 Discharge instructions given to patient, Instructed on discharge instructions, follow up and referral plans. medication usage, Demonstrated understanding of instructions, follow-up care, medications, Prescriptions given X 1. 13:23 Patient left the ED. la1 Signatures: Dispatcher [employer] EDMS Jaron Small PA PA jmm Martinez, Amelia as Fredis Johnson, RN RN la1
--- NOTE | 2018-05-12 13:18 | EDPHYS ---
Physician Documentation [facility] Name: Omayra Parra Age: 27 yrs Sex: Female : 1990 Arrival Date: 05/12/2018 Time: 11:00 Bed 10 Private MD: ED Physician Jasbir Coleman HPI: 05/12 11:20 This 27 yrs old Female presents to ER via Ambulatory with complaints of Toe jmm Injury. 11:20 The patient presents with an injury, pain. Onset: The symptoms/episode began/occurred jmm acutely, yesterday. Modifying factors: The symptoms are alleviated by nothing, the symptoms are aggravated by nothing. Associated signs and symptoms: Pertinent positives: swelling. This is a 27 year old female with a history of migraines that presents to the ED with complaints of left great toe and 4th toe pain after a Dr. Vincent can fell. Patient states the can slipped out of her hand. Denies other injury. . Historical: - Allergies: 11:03 No Known Allergies; la1 - PMHx: 11:03 Anxiety; Migraines; PCOS; Trichiamonis; la1 - Immunization history:: Adult Immunizations up to date. - Social history:: Smoking status: Patient/guardian denies using tobacco. - Ebola Screening: : No symptoms or risks identified at this time. ROS: 11:20 Constitutional: Negative for fever, chills, and weight loss, Cardiovascular: Negative jmm for chest pain, palpitations, and edema, Respiratory: Negative for shortness of breath, cough, wheezing, and pleuritic chest pain. 11:20 MS/extremity: Positive for injury or acute deformity, pain. 11:20 All other systems are negative. Exam: 11:20 Constitutional: This is a well developed, well nourished patient who is awake, alert, jmm and in no acute distress. Head/Face: atraumatic. Eyes: EOMI, no conjunctival erythema appreciated ENT: Moist Mucus Membranes Neck: Trachea midline, Supple Chest/axilla: Normal chest wall appearance and motion. Cardiovascular: Regular rate and rhythm. No edema appreciated Respiratory: Normal respirations, no respiratory distress appreciated Abdomen/GI: Non distended, soft Back: Normal ROM 11:20 Skin: ecchymosis noted to the left great toe and 4th toe, < 2 sec dist cap refill, NVI. 11:20 Neuro: Orientation: is normal, Mentation: is normal, Memory: is normal. 11:20 Psych: Behavior/mood is pleasant, cooperative. Vital Signs: 11:04 BP 141 / 73; Pulse 95; Resp 16; Temp 97.5; Pulse Ox 98% on R/A; Weight 113.4 kg; Height la1 5 ft. 2 in. (157.48 cm); 11:04 Body Mass Index 45.73 (113.40 kg, 157.48 cm) la1 Procedures: 13:14 Splinting: Splint applied to left foot using anmol tape, orthoshoe. applied by tech. julien Examined by me, post splint application: neurovascular intact, 2+ distal pulses palpable, brisk capillary refill noted, Patient tolerated well. MDM: 11:20 Patient medically screened. [facility] 13:14 Data reviewed: vital signs, nurses notes. Counseling: I had a detailed discussion with julien the patient and/or guardian regarding: the historical points, exam findings, and any diagnostic results supporting the discharge/admit diagnosis, radiology results, the need for outpatient follow up, to return to the emergency department if symptoms worsen or persist or if there are any questions or concerns that arise at home. 13:14 ED course: Fracture noted to the left distal great toe. Patient is advised to follow up [facility] with ortho/podiatry. Patient otherwise given return precautions. . 05/12 11:05 Order name: Foot Left 3 View XRAY la1 05/12 11:35 Order name: Ice pack; Complete Time: 11:46 [facility] 05/12 12:42 Order name: Splint: orthoshoe, anmol tape; Complete Time: 13:23 [facility] Administered Medications: No medications were administered Disposition: 05/13 08:17 Co-signature as Attending Physician, Jasbir Coleman MD I agree with the assessment and ren plan of care. Disposition: 05/12/18 13:17 Discharged to Home. Impression: Toe Fracture. - Condition is Stable. - Discharge Instructions: Toe Fracture. - Prescriptions for Ultracet 37.5- 325 mg Oral Tablet - take 1 tablet by ORAL route every 6 hours - for up to 5 days; do not exceed 8 tablets per day.; 12 tablet. - Medication Reconciliation Form, Thank You Letter, Antibiotic Education, Prescription Opioid Use form. - Follow up: Alon Valladares DPM; When: 2 - 3 days; Reason: Recheck today's complaints, Continuance of care, Re-evaluation by your physician. Signatures: Dispatcher [employer] Jasbir Nguyen MD MD cha Mickail, Joel, PA PA jmm Attema, Lee RN RN la1 Corrections: (The following items were deleted from the chart) 05/12 13:23 13:17 05/12/2018 13:17 Discharged to Home. Impression: Toe Fracture. Condition is la1 Stable. Forms are Medication Reconciliation Form, Thank You Letter, Antibiotic Education, Prescription Opioid Use. Follow up: Alon Valladares; When: 2 - 3 days; Reason: Recheck today's complaints, Continuance of care, Re-evaluation by your physician. julien
[2018-05-12 13:30] VITALS: BP 141/73; TEMP 97.5; O2SAT 98
--- NOTE | 2018-05-12 15:04 | RAD REPORT ---
EXAM DESCRIPTION: RAD - Foot Left 3 View - 05/12/2018 12:40 pm CLINICAL HISTORY: PAIN COMPARISON: No comparisons FINDINGS: Soft tissue swelling is seen affecting the great toe. No acute fracture or subluxation winter dent.
== END 2018-05-12 13:23 | disposition home or self-care (01) ==
LOC: ER 10:58
DX: S92.402A Displaced unspecified fracture of left great toe, initial encounter for closed fracture (principal); W20.8XXA Other cause of strike by thrown, projected or falling object, initial encounter; F41.9 Anxiety disorder, unspecified; E28.2 Polycystic ovarian syndrome
CPT/HCPCS: 99283

== ENCOUNTER 2018-07-12 16:01 | Emergency (ER) | payer SELFPAY ==
[2018-07-12 17:12] LABS: Urine Blood TRACE (NEG); Urine Glucose NEGATIVE (NEG); Urine Protein NEGATIVE (NEG); Urine Specific Gravity 1.025 (1.005-1.030)
[2018-07-12 17:15] LABS: Absolute Lymphocytes (CBC) 2.1 K/uL (0.7-4.9); Absolute Monocytes 0.6 K/uL (0.1-1.3); Absolute Neutrophil 6.7 K/uL (1.8-8.0); Basophils % 0.5 % (0-1.3); Eosinophils % 1.3 % (0-4.4); Lymphocytes % 21.7 % (15.3-44.8); MPV 6.9 fL (7.6-11.3); Monocytes % 5.9 % (3.3-12.3)
[2018-07-12 17:19] LABS: ALT/SGPT 18 U/L (12-78); AST/SGOT 10 U/L (15-37); Albumin 3.7 g/dL (3.4-5.0); Alkaline Phosphatase 83 U/L (45-117); BUN Blood Urea Nitrogen 13 mg/dL (7-18); Bicarbonate 28 mmol/L (21-32); Bilirubin Total 1.1 mg/dL (0.2-1.0); Glucose Level 66 mg/dL (74-106); Potassium 3.9 mmol/L (3.5-5.1); Protein, Total 7.3 g/dL (6.4-8.2); Sodium Level 141 mmol/L (136-145)
[2018-07-12] MEDS ORDERED: MECLIZINE HCL 12.5 MG TAB ONE (17:21)
[2018-07-12] MEDS ORDERED: NA CHLORIDE 0.9% 1,000 ML ONE (17:21)
--- NOTE | 2018-07-12 17:28 | RAD REPORT ---
EXAM DESCRIPTION: CT - Head Brain Wo Cont - 07/12/2018 5:14 pm CLINICAL HISTORY: dizziness COMPARISON: 05/23 TECHNIQUE: Computed axial tomography of the head was obtained. IV contrast was not requested. All CT scans are performed using dose optimization technique as appropriate and may include automated exposure control or mA/KV adjustment according to patient size. FINDINGS: An intracranial bleed is not seen . The ventricles are normal in caliber. No extra-axial fluid collection is noted. Fluid within the sinuses/ mastoids is not seen. IMPRESSION: No acute intracranial abnormality is seen. If patient's symptoms persist MRI of the bra in would be recommended.
--- NOTE | 2018-07-12 18:09 | ER ---
Nurse's Notes [facility] Name: Omayra Parra Age: 27 yrs Sex: Female : 1990 Arrival Date: 07/12/2018 Time: 16:05 Bed 16 Private MD: Abdullahi Guan E Diagnosis: Dizziness and giddiness;Urinary tract infection, site not specified Presentation: 07/12 16:07 Presenting complaint: Patient states: dizziness and generalized weakness that began aa5 this morning. Pt states "I took a test 2 weeks ago and there was a faint line but I also had a negative one so I don't know if I am ". Transition of care: patient was not received from another setting of care. Onset of symptoms was July 12, 2018. Risk Assessment: Do you want to hurt yourself or someone else? Patient reports no desire to harm self or others. Initial Sepsis Screen: Does the patient meet any 2 criteria? No. Patient's initial sepsis screen is negative. Does the patient have a suspected source of infection? No. Patient's initial sepsis screen is negative. Care prior to arrival: None. 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 - Social history:: Smoking status: Patient/guardian denies using tobacco. - Ebola Screening: : No symptoms or risks identified at this time. Screenin:25 Abuse screen: Denies threats or abuse. Denies injuries from another. Nutritional ch screening: No deficits noted. Tuberculosis screening: No symptoms or risk factors identified. Fall Risk None identified. Assessment: 16:25 General: Appears in no apparent distress. comfortable, Behavior is calm, cooperative, ch appropriate for age. Pain: Denies pain. Neuro: Level of Consciousness is awake, alert, obeys commands, Oriented to person, place, time, situation, Delivery Lead are equal bilaterally Moves all extremities. Full function Gait is steady, Speech is normal, Facial symmetry appears normal, Facial symmetry: tongue is midline, Pupils are PERRLA, Reports dizziness, not feeling well, being tired. . Cardiovascular: Reports feeling weak. Respiratory: Airway is patent Respiratory effort is even, unlabored, Breath sounds are clear bilaterally. GI: Abdomen is round obese, Bowel sounds present X 4 quads. Abd is soft and non tender X 4 quads. : Reports possible , denies vag bleeding or discharge. Derm: Skin is pink, warm \\T\\ dry. Musculoskeletal: Circulation, motion, and sensation intact. Capillary refill < 3 seconds, in bilateral fingers. toes. Range of motion: intact in all extremities, Swelling absent. 18:00 Reassessment: Patient appears in no apparent distress at this time. Patient and/or ch family updated on plan of care and expected duration. Pain level reassessed. Patient is alert, oriented x 3, equal unlabored respirations, skin warm/dry/pink. Patient states feeling better. Patient states symptoms have improved. Vital Signs: 16:10 BP 132 / 84; Pulse 96; Resp 18 S; Temp 98.3(O); Pulse Ox 97% on R/A; Pain 10/10; aa5 18:00 BP 122 / 76; Pulse 74; Resp 16; Temp 98.5; Pulse Ox 99% on R/A; Pain 5/10; ch ED Course: 16:05 Patient arrived in ED. rg4 16:05 Abdullahi Guan MD is Private Physician. rg4 16:07 Arm band placed on. aa5 16:08 Triage completed. aa5 16:14 Jaron Small PA is PHCP. [facility] 16:14 Cristofer Lorenzana MD is Attending Physician. [facility] 16:20 Dyan Iraheta, SUSAN is Primary Nurse. ch 16:25 No apparent distress. Resting quietly. ch 16:25 Patient has correct armband on for positive identification. Placed in gown. Bed in low ch position. Call light in reach. Side rails up X 1. figure clerk on. Pulse ox on. NIBP on. 16:25 No provider procedures requiring assistance completed. ch 16:40 Missed attempt(s): 18 gauge 22 gauge in left antecubital area. Bleeding controlled, ch band aid applied, catheter tip intact. 16:40 Inserted saline lock: 22 gauge in right antecubital area, using aseptic technique. ch Blood collected. Started by sergio. 17:18 CT Head Brain wo Cont In Process Unspecified. EDMS 17:20 IV discontinued, intact, bleeding controlled, No redness/swelling at site. Pressure ch dressing applied, Iv will not flush. provider notified, order changed to PO fluids. pt brought 1L PO water. 18:10 Abdullahi Guan MD is Referral Physician. [facility] 18:35 No apparent distress. Resting quietly. ch Administered Medications: 17:07 Drug: NS 0.9% 1000 ml Route: IV; Rate: 1 bolus; Site: right antecubital; ch 17:30 Follow up: IV Status: IV infiltrated ch 17:30 Follow up: IV Intake: 20ml ch 17:08 Drug: Meclizine 50 mg Route: PO; ch 18:25 Follow up: Response: No adverse reaction; Marked relief of symptoms ch Intake: 17:30 IV: 20ml; Total: 20ml. Outcome: 18:10 Discharge ordered by . [facility] 18:25 Discharged to home ambulatory. 18:25 Condition: improved 18:25 Discharge instructions given to patient, Instructed on discharge instructions, follow up and referral plans. medication usage, Demonstrated understanding of instructions, follow-up care, medications, Prescriptions given X 2. 18:30 Patient left the ED. eb Signatures: Dispatcher [employer] EDMS Dyan Iraheta, Jaron Amaya RN, ch, PA PA jmm Calderon, Audri, RN RN aa5 Garcia, Rubi rg4 Botello, Elizabeth eb
--- NOTE | 2018-07-12 18:09 | EDPHYS ---
Physician Documentation [facility] Name: Omayra Parra Age: 27 yrs Sex: Female : 1990 Arrival Date: 07/12/2018 Time: 16:05 Bed 16 Private MD: Abdullahi Guan E ED Physician Cristofer Lorenzana HPI: 07/12 16:29 This 27 yrs old Female presents to ER via Ambulatory with complaints of jmm Dizziness. 16:29 The patient presents with generalized weakness, lightheadedness. Onset: The jmm symptoms/episode began/occurred yesterday. Associated signs and symptoms: Pertinent negatives: shortness of breath. This is a 27 year old female with a history of migraines that presents to the ED with complaints of dizziness, lightheadedness beginning yesterday. patient states not eating since yesterday. patient denies fever. Patient also complains of a mild headache. patient denies fever, denies shortness of breath. . 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 - Social history:: Smoking status: Patient/guardian denies using tobacco. - Ebola Screening: : No symptoms or risks identified at this time. ROS: 16:29 Constitutional: Negative for fever, chills, and weight loss, Cardiovascular: Negative jmm for chest pain, palpitations, and edema, Respiratory: Negative for shortness of breath, cough, wheezing, and pleuritic chest pain. 16:29 Neuro: Positive for dizziness, weakness. 16:29 All other systems are negative. Exam: 16:29 Constitutional: This is a well developed, well nourished patient who is awake, alert, jmm and in no acute distress. Head/Face: atraumatic. Eyes: EOMI, no conjunctival erythema appreciated ENT: Moist Mucus Membranes Neck: Trachea midline, Supple Chest/axilla: Normal chest wall appearance and motion. Cardiovascular: Regular rate and rhythm. No edema appreciated Respiratory: Normal respirations, no respiratory distress appreciated Abdomen/GI: Non distended, soft Back: Normal ROM Skin: General appearance color normal MS/ Extremity: Moves all extremities, no obvious deformities appreciated, no edema noted to the lower extremities Neuro: Awake and alert, normal gait Vital Signs: 16:10 BP 132 / 84; Pulse 96; Resp 18 S; Temp 98.3(O); Pulse Ox 97% on R/A; Pain 10/10; aa5 18:00 BP 122 / 76; Pulse 74; Resp 16; Temp 98.5; Pulse Ox 99% on R/A; Pain 5/10; ch MDM: 16:29 Patient medically screened. [facility] 18:06 Data reviewed: vital signs, nurses notes. Counseling: I had a detailed discussion with julien the patient and/or guardian regarding: the historical points, exam findings, and any diagnostic results supporting the discharge/admit diagnosis, lab results, radiology results, the need for outpatient follow up, to return to the emergency department if symptoms worsen or persist or if there are any questions or concerns that arise at home. Response to treatment: the patient's symptoms have markedly improved after treatment, and as a result, I will discharge patient. ED course: Patient is alert and non toxic in appearance in the ED. Dizziness has resolved. Patient will follow up with pcp for reevaluation. patient is otherwise given strict return precautions. patient understood and agrees with the plan of care. . 07/12 16:30 Order name: CBC with Diff; Complete Time: 17:49 [facility] 07/12 16:30 Order name: CMP; Complete Time: 17:33 [facility] 07/12 16:51 Order name: CT Head Brain wo Cont; Complete Time: 17:33 [facility] 07/12 16:51 Order name: Troponin (emerg Dept Use Only); Complete Time: 17:33 [facility] 07/12 17:07 Order name: Urine Dipstick--Ancillary (enter results); Complete Time: 17:33 07/12 17:07 Order name: Urine --Ancillary (enter results); Complete Time: 17:33 07/12 16:30 Order name: Saline Lock; Complete Time: 17:06 [facility] 07/12 16:30 Order name: Urine Dipstick-Ancillary (obtain specimen); Complete Time: 17:06 [facility] 07/12 16:31 Order name: Urine Test (obtain specimen); Complete Time: 17:06 [facility] 07/12 16:32 Order name: EKG - Nurse/Tech; Complete Time: 18:51 [facility] 07/12 16:35 Order name: EKG; Complete Time: 16:36 ss Administered Medications: 17:07 Drug: NS 0.9% 1000 ml Route: IV; Rate: 1 bolus; Site: right antecubital; 17:30 Follow up: IV Status: IV infiltrated 17:30 Follow up: IV Intake: 20ml 17:08 Drug: Meclizine 50 mg Route: PO; 18:25 Follow up: Response: No adverse reaction; Marked relief of symptoms Disposition: 07/13 07:28 Co-signature as Attending Physician, Cristofer Lorenzana MD. rn Disposition: 07/12/18 18:10 Discharged to Home. Impression: Dizziness and giddiness, Urinary tract infection, site not specified. - Condition is Stable. - Discharge Instructions: Dizziness, Urinary Tract Infection, Adult. - Prescriptions for Cephalexin 500 mg Oral Capsule - take 1 capsule by ORAL route every 12 hours for 10 days; 20 capsule. Meclizine 25 mg Oral Tablet - take 1 tablet by ORAL route every 8 hours As needed; 30 tablet. - Medication Reconciliation Form, Thank You Letter, Antibiotic Education, Prescription Opioid Use, Work release form form. - Follow up: Abdullahi Guan MD; When: 2 - 3 days; Reason: Recheck today's complaints, Continuance of care, Re-evaluation by your physician. Signatures: Dispatcher [employer] Dyan Velasco, Jaron Amaya RN, ch, PA PA jmm Nieto, Roman, MD MD rn Calderon, Audri, RN RN aa5 Botello, Elizabeth eb Corrections: (The following items were deleted from the chart) 07/12 18:30 18:10 07/12/2018 18:10 Discharged to Home. Impression: Dizziness and giddiness; Urinary eb tract infection, site not specified. Condition is Stable. Forms are Medication Reconciliation Form, Thank You Letter, Antibiotic Education, Prescription Opioid Use. Follow up: Abdullahi Guan; When: 2 - 3 days; Reason: Recheck today's complaints, Continuance of care, Re-evaluation by your physician. manishm
[2018-07-12 19:30] VITALS: BP 132/84; TEMP 98.3; O2SAT 97
--- NOTE | 2018-07-13 09:03 | EKG ---
Test Date: 2018-07-12 Test Time: 16:46:43 Supervisor Brake Repair: MENDY MEASUREMENT RESULTS: Intervals: Rate: 81 ND: 132 QRSD: 86 QT: 388 QTc: 450 [place]: P: 35 ND: 132 QRS: 53 T: 29 INTERPRETIVE STATEMENTS: Normal sinus rhythm Normal ECG No previous ECG available for comparison Electronically Signed On 07-13-18 09:00:49 CDT by Tapan Grover
== END 2018-07-12 18:30 | disposition home or self-care (01) ==
LOC: ER 16:01
DX: N39.0 Urinary tract infection, site not specified (principal); Z88.5 Allergy status to narcotic agent
CPT/HCPCS: 36415; 70450; 80053; 81003; 81025; 84484; 85025; 93005; 99284; J7030

== ENCOUNTER 2018-09-12 12:05 | Emergency (ER) | payer SELFPAY ==
[2018-09-12] MEDS ORDERED: DIAZEPAM 5 MG TABLET ONE (12:41)
[2018-09-12 12:55] LABS: Urine Blood 3+ (NEG); Urine Glucose NEGATIVE (NEG); Urine Protein TRACE (NEG); Urine Specific Gravity >1.030 (1.005-1.030); Urine pH 5.5 (5.0-7.0)
--- NOTE | 2018-09-12 13:22 | RAD REPORT ---
EXAM DESCRIPTION: CT - Stone Protocol - 09/12/2018 1:02 pm CLINICAL HISTORY: Abdominal pain. Right flank pain COMPARISON: March 2018 TECHNIQUE: Computed axial tomography of the abdomen pelvis was obtained without oral or IV contrast. Lack of IV and oral contrast limits evaluation of solid organs, bowel, and vessels. Coronal reformat tali images were obtained and reviewed. All CT scans are performed using dose optimization technique as appropriate and may include automated exposure control or mA/KV adjustment according to patient size. FINDINGS: A renal calculus is not seen. An ureteral calculus is not noted. A bladder calculus is not present. The liver, spleen, pancreas and adrenals appear grossly normal There is no evidence of diverticulitis. The appendix appears normal Left ovary has a normal appearance. Tampon is present within the vagina IMPRESSION: Negative for a genitourinary calculus
--- NOTE | 2018-09-12 13:52 | ER ---
Nurse's Notes [facility] Name: Omayra Parra Age: 27 yrs Sex: Female : 1990 Arrival Date: 09/12/2018 Time: 12:07 Bed 16 Private MD: Diagnosis: Strain of muscle and tendon of back wall of thorax Presentation: 09/12 12:30 Presenting complaint: Patient states: R sided mid back pain this morning upon waking, ph states, " I went back to sleep til 10 and it was worse when I woke up then." Pain worse with movement, also reports cloudy urine and nausea. Transition of care: patient was not received from another setting of care. Onset of symptoms was September 12, 2018. Risk Assessment: Do you want to hurt yourself or someone else?. Initial Sepsis Screen: Does the patient meet any 2 criteria? No. Patient's initial sepsis screen is negative. Does the patient have a suspected source of infection? No. Patient's initial sepsis screen is negative. Care prior to arrival: None. 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 - Social history:: Smoking status: Patient/guardian denies using tobacco. - Ebola Screening: : No symptoms or risks identified at this time. Screenin:43 Abuse screen: Denies threats or abuse. Denies injuries from another. Nutritional aj screening: No deficits noted. Tuberculosis screening: No symptoms or risk factors identified. Fall Risk None identified. Assessment: 12:43 General: Appears in no apparent distress. comfortable, Behavior is calm, cooperative, aj appropriate for age. Pain: Complains of pain in low back area and mid back area. Neuro: Level of Consciousness is awake, alert, obeys commands, Oriented to person, place, time, situation, Appropriate for age. Respiratory: Airway is patent Respiratory effort is even, unlabored, Respiratory pattern is regular, symmetrical. Derm: Skin is intact, is healthy with good turgor, Skin is pink, warm \\T\\ dry. normal. Musculoskeletal: Reports pain in low back area and mid back area. 14:17 Reassessment: Patient resting comfortably in bed with eyes closed. aj Vital Signs: 12:32 BP 127 / 79; Pulse 87; Resp 18; Temp 97.4; Pulse Ox 100% on R/A; Weight 108.86 kg; Pain ph 10/10; ED Course: 12:07 Patient arrived in ED. mr 12:23 Jaron Small PA is PHCP. [facility]ish 12:23 Anastacio Valera MD is Attending Physician. [facility] 12:28 Mary Allison, RN is Primary Nurse. aj 12:32 Triage completed. ph 12:33 Arm band placed on Patient placed in an exam room, on a stretcher. ph 12:43 Patient has correct armband on for positive identification. Bed in low position. Call aj light in reach. Side rails up X 1. Pulse ox on. NIBP on. 12:58 CT completed. Patient tolerated procedure well. Patient moved to CT via wheelchair. jj2 Patient moved back from CT. 13:05 CT Stone Protocol In Process Unspecified. EDDC 14:16 No provider procedures requiring assistance completed. Patient did not have IV access aj during this emergency room visit. Administered Medications: 12:43 Drug: Valium 5 mg Route: PO; aj 14:17 Follow up: Response: No adverse reaction Outcome: 13:52 Discharge ordered by . [facility] 14:16 Discharged to home ambulatory, with family. aj 14:16 Condition: good 14:16 Discharge instructions given to patient, family, Instructed on discharge instructions, follow up and referral plans. medication usage, Demonstrated understanding of instructions, follow-up care, medications, Prescriptions given X 2. 14:18 Patient left the ED. mariano Signatures: Dispatcher [employer] EDMS Mary Allison, RN RN Jaron Rogers PA PA jmm Rivera, Mary mr YanezRebel Patricia, RN RN ph
--- NOTE | 2018-09-12 13:52 | EDPHYS ---
Physician Documentation [facility] Name: Omayra Parra Age: 27 yrs Sex: Female : 1990 Arrival Date: 09/12/2018 Time: 12:07 Bed 16 Private MD: ED Physician Anastacio Valera HPI: 09/12 12:32 This 27 yrs old Female presents to ER via Ambulatory with complaints of Back jmm Pain. 12:32 The patient presents with pain that is acute, with no known mechanism of injury. The jmm symptoms are located in the right flank. Onset: The symptoms/episode began/occurred gradually, 1 day(s) ago. The pain does not radiate. Associated signs and symptoms: Pertinent positives: nausea, Pertinent negatives: vomiting. This is a 27 year old female with a history of anxiety, migraines, PCOS, that presents to the ED with complaints of right flank pain, right back pain. Denies vomiting but states was nauseous while eating. . 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 - Social history:: Smoking status: Patient/guardian denies using tobacco. - Ebola Screening: : No symptoms or risks identified at this time. ROS: 12:32 Constitutional: Negative for fever, chills, and weight loss, Cardiovascular: Negative jmm for chest pain, palpitations, and edema, Respiratory: Negative for shortness of breath, cough, wheezing, and pleuritic chest pain. 12:32 Back: Positive for pain at rest, pain with movement. 12:32 All other systems are negative. Exam: 12:32 Constitutional: This is a well developed, well nourished patient who is awake, alert, jmm and in no acute distress. Head/Face: atraumatic. 12:32 Chest/axilla: Normal chest wall appearance and motion. Cardiovascular: Regular rate jmm and rhythm. No edema appreciated 12:32 Eyes: EOMI, no conjunctival erythema appreciated ENT: Moist Mucus Membranes Neck: jm Trachea midline, Supple Respiratory: Normal respirations, no respiratory distress appreciated Abdomen/GI: Non distended, soft Skin: General appearance color normal MS/ Extremity: Moves all extremities, no obvious deformities appreciated, no edema noted to the lower extremities Neuro: Awake and alert, normal gait Psych: Behavior is normal, Mood is normal, Patient is cooperative and pleasant 12:32 Back: CVA tenderness, that is mild, is noted on the right. Vital Signs: 12:32 BP 127 / 79; Pulse 87; Resp 18; Temp 97.4; Pulse Ox 100% on R/A; Weight 108.86 kg; Pain ph 10/10; MDM: 12:32 Patient medically screened. [facility] 13:50 Data reviewed: vital signs, nurses notes. Counseling: I had a detailed discussion with [facility] the patient and/or guardian regarding: the historical points, exam findings, and any diagnostic results supporting the discharge/admit diagnosis, radiology results, the need for outpatient follow up, to return to the emergency department if symptoms worsen or persist or if there are any questions or concerns that arise at home. 08 12:51 Order name: Urine Dipstick--Ancillary (enter results); Complete Time: 12:57 al 09/12 12:51 Order name: Urine --Ancillary (enter results); Complete Time: 12:57 al 09/12 12:37 Order name: Urine Dipstick-Ancillary (obtain specimen); Complete Time: 12:43 [facility] 09/12 12:37 Order name: Urine Test (obtain specimen); Complete Time: 12:43 [facility] 09/12 12:37 Order name: CT Stone Protocol; Complete Time: 13:33 [facility] Administered Medications: 12:43 Drug: Valium 5 mg Route: PO; aj 14:17 Follow up: Response: No adverse reaction Disposition: 16:10 Co-signature as Attending Physician, Anastacio Valera MD I agree with the assessment and kdr plan of care. Disposition: 09/12/18 13:52 Discharged to Home. Impression: Strain of muscle and tendon of back wall of thorax. - Condition is Stable. - Discharge Instructions: Thoracic Strain. - Prescriptions for Medrol (Ye) 4 mg Oral Tablets, Dose Pack - take 1 tablet by ORAL route as directed - follow package instructions; 1 packet. orphenadrine citrate 100 mg Oral Tablet Sustained Release - take 1 tablet by ORAL route 2 times per day As needed; 20 tablet. - Medication Reconciliation Form, Thank You Letter, Antibiotic Education, Prescription Opioid Use form. - Follow up: Private Physician; When: 2 - 3 days; Reason: Recheck today's complaints, Continuance of care, Re-evaluation by your physician. Signatures: Dispatcher [employer] Mary Kenney, RN RN Anastacio Molina MD MD kdr Mickail, Joel, PA PA Marilou Sifuentes RN RN ph Corrections: (The following items were deleted from the chart) 14:18 13:52 09/12/2018 13:52 Discharged to Home. Impression: Strain of muscle and tendon of aj back wall of thorax. Condition is Stable. Forms are Medication Reconciliation Form, Thank You Letter, Antibiotic Education, Prescription Opioid Use. Follow up: Private Physician; When: 2 - 3 days; Reason: Recheck today's complaints, Continuance of care, Re-evaluation by your physician. [facility]
[2018-09-12 14:23] VITALS: BP 127/79; TEMP 97.4; O2SAT 100
== END 2018-09-12 14:18 | disposition home or self-care (01) ==
LOC: ER 12:05
DX: S29.012A Strain of muscle and tendon of back wall of thorax, initial encounter (principal); F41.9 Anxiety disorder, unspecified; Z88.5 Allergy status to narcotic agent
CPT/HCPCS: 74176; 76377; 81003; 81025; 99284

== ENCOUNTER 2018-11-03 14:51 | Emergency (ER) | payer SELFPAY ==
[2018-11-03 15:39] LABS: Urine Blood NEGATIVE (NEG); Urine Glucose NEGATIVE (NEG); Urine Protein NEGATIVE (NEG)
[2018-11-03] MEDS ORDERED: PROMETHAZINE 25 MG/ML VIAL ONE (15:59)
[2018-11-03] MEDS ORDERED: NA CHLORIDE 0.9% 1,000 ML ONE (15:59)
[2018-11-03] MEDS ORDERED: FENTANYL CITR 100 MCG/2 ML ONE (15:59)
[2018-11-03 16:04] LABS: Absolute Lymphocytes (CBC) 1.9 K/uL (0.7-4.9); Basophils % 1.2 % (0-1.3); Hematocrit 38.6 % (36.0-45.0); MPV 7.3 fL (7.6-11.3); RBC Red Blood Cell Count 4.66 M/uL (3.86-4.86)
[2018-11-03 16:18] LABS: ALT/SGPT 15 U/L (12-78); AST/SGOT 11 U/L (15-37); Albumin 3.7 g/dL (3.4-5.0); Alkaline Phosphatase 70 U/L (45-117); BUN Blood Urea Nitrogen 11 mg/dL (7-18); Bicarbonate 26 mmol/L (21-32); Bilirubin Direct 0.1 mg/dL (0-0.2); Bilirubin Total 0.7 mg/dL (0.2-1.0); Glucose Level 93 mg/dL (74-106); Lipase 90 U/L (73-393); Potassium 3.8 mmol/L (3.5-5.1); Protein, Total 7.2 g/dL (6.4-8.2); Sodium Level 140 mmol/L (136-145)
--- NOTE | 2018-11-03 16:38 | RAD REPORT ---
EXAM DESCRIPTION: RAD - Chest Single View - 11/03/2018 3:39 pm CLINICAL HISTORY: Chest pain COMPARISON: September 2017 TECHNIQUE: AP portable chest image was obtained 1538 hours . FINDINGS: Lungs are clear. Heart and vasculature are normal. No measurable pleural effusion and no p neumothorax. No acute bony abnormality seen. No acute aortic findings suspected. IMPRESSION: No acute cardiopulmonary process. No suspicious interval change.
--- NOTE | 2018-11-03 16:45 | RAD REPORT ---
EXAM DESCRIPTION: CT - Abdomen Pelvis W Contrast - 11/03/2018 4:37 pm CLINICAL HISTORY: ABD PAIN COMPARISON: February 2018 TECHNIQUE: Biphasic, helical CT imaging of the abdomen and pelvis was performed following 100 ml non -ionic IV contrast. No oral contrast administered. All CT scans are performed using dose optimization technique as appropriate and may include automated exposure control or mA/KV adjustment according to patient size. FINDINGS: No suspicious findings in the lung bases. The liver, spleen, and pancreas show no suspicious findings. Gallbladder and biliary tree are also wi thout suspicious finding. Symmetric renal function is seen with no hydronephrosis or suspicious renal mass. No pyelonephritis o r acute parenchymal process. No bladder abnormalities. No adrenal abnormalities. No dilated bowel loops or bowel wall thickening. Appendix is normal. No free air, free fluid or infla mmatory stranding. No hernia, mass or bulky lymphadenopathy. Uterus and left ovary show no suspiciou s findings. Right ovary contains a 2.8 centimeter cyst. No suspicious characteristics. No cyst ruptur e or hemorrhage identified. No fallopian tube dilatation. No suspicious bony findings. IMPRESSION: Contrast enhanced CT abdomen and pelvis showing no acute or emergent finding. The 2.8 centimeter benign-appearing right ovarian cyst is present. No evidence for cyst rupture or he morrhage.
--- NOTE | 2018-11-03 16:57 | ER ---
Nurse's Notes [facility] Name: Omayra Parra Age: 27 yrs Sex: Female : 1990 Arrival Date: 11/03/2018 Time: 14:58 Bed 7 Private MD: Abdullahi Guan E Diagnosis: Abdominal and pelvic pain;Other ovarian cysts Presentation: 11/03 14:59 Presenting complaint: Patient states: lower abd pain started 3 days ago and today had sv the pain shoot up to her upper abd pain and midsternal chest area, nausea. Transition of care: patient was not received from another setting of care. Onset of symptoms was October 31, 2018. Risk Assessment: Do you want to hurt yourself or someone else? Patient reports no desire to harm self or others. Care prior to arrival: None. 14:59 Method Of Arrival: Ambulatory sv 14:59 Acuity: GAYE 3 sv 17:02 Initial Sepsis Screen: Does the patient meet any 2 criteria? No. Patient's initial mg2 sepsis screen is negative. Does the patient have a suspected source of infection? No. Patient's initial sepsis screen is negative. 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 - Social history:: Smoking status: unknown. - Ebola Screening: : No symptoms or risks identified at this time. Screenin:01 Abuse screen: Denies threats or abuse. Denies injuries from another. Nutritional mg2 screening: No deficits noted. Tuberculosis screening: No symptoms or risk factors identified. Fall Risk IV access (20 points). Assessment: 17:00 General: Appears in no apparent distress. comfortable, Behavior is calm, cooperative. mg2 Pain: Complains of pain in suprapubic area and chest Pain currently is 2 out of 10 on a pain scale. Quality of pain is described as aching, Pain began gradually, Is intermittent. Neuro: Level of Consciousness is awake, alert, obeys commands, Oriented to person, place, time, situation. Cardiovascular: Capillary refill < 3 seconds Patient's skin is warm and dry. Respiratory: Airway is patent Respiratory effort is even, unlabored, Respiratory pattern is regular, symmetrical. GI: Bowel sounds present X 4 quads. Abd is soft and non tender Reports lower abdominal pain, nausea. : No signs and/or symptoms were reported regarding the genitourinary system. EENT: No signs and/or symptoms were reported regarding the EENT system. Derm: Skin is intact, is healthy with good turgor, Skin is pink, warm \T\ dry. normal. Musculoskeletal: Circulation, motion, and sensation intact. Capillary refill < 3 seconds. 17:29 Reassessment: Patient appears in no apparent distress at this time. Patient and/or mg2 family updated on plan of care and expected duration. Pain level reassessed. Patient is alert, oriented x 3, equal unlabored respirations, skin warm/dry/pink. Patient denies pain at this time. Patient states feeling better. Vital Signs: 15:00 BP 133 / 81; Pulse 76; Resp 18; Temp 98.9(O); Pulse Ox 100% ; Weight 113.4 kg; Height 5 sv ft. 4 in. (162.56 cm); 17:29 BP 122 / 78; Pulse 78; Resp 18; Temp 98; Pulse Ox 100% on R/A; mg2 15:00 Body Mass Index 42.91 (113.40 kg, 162.56 cm) sv ED Course: 14:58 Patient arrived in ED. am2 14:58 Fidel Willams MD is Private Physician. am2 15:00 Triage completed. sv 15:01 Arm band placed on. sv 15:02 [facility]. pm1 15:02 Jasbir Coleman MD is Attending Physician. pm1 15:04 Abdullahi Guan MD is Private Physician. am2 15:11 Teofilo Cardona, SUSAN is Primary Nurse. mg2 15:31 Radiology exam delayed due to lab results not completed at this time. (BUN/Creatinine) kw1 test not completed at this time. 15:38 Chest Single View XRAY In Process Unspecified. EDMS 16:37 CT completed. Patient tolerated procedure well. Patient moved back from CT. kw1 16:39 CT Abd/Pelvis - IV Contrast Only In Process Unspecified. EDMS 17:01 Patient has correct armband on for positive identification. Pulse ox on. NIBP on. Door mg2 closed. Warm blanket given. 17:01 No provider procedures requiring assistance completed. Inserted saline lock: 22 gauge mg2 in left antecubital area, using aseptic technique. Blood collected. 17:29 IV discontinued, intact, bleeding controlled, No redness/swelling at site. Pressure mg2 dressing applied. Administered Medications: 16:05 Drug: NS 0.9% 1000 ml Route: IV; Rate: 1000 ml; Site: left antecubital; mg2 17:28 Follow up: Response: No adverse reaction; IV Status: Completed infusion; IV Intake: mg2 1000ml 16:06 Drug: fentaNYL (PF) 50 mcg Route: IVP; Site: left antecubital; mg2 17:29 Follow up: Response: No adverse reaction; Marked relief of symptoms mg2 16:06 Drug: Phenergan 12.5 mg Route: IVP; Site: left antecubital; mg2 17:29 Follow up: Response: No adverse reaction; Marked relief of symptoms mg2 Intake: 17:28 IV: 1000ml; Total: 1000ml. mg2 Outcome: 16:56 Discharge ordered by MD. pm1 17:30 Discharged to home via wheelchair, with family. mg2 17:30 Condition: stable 17:30 Discharge instructions given to patient, family, Instructed on discharge instructions, follow up and referral plans. medication usage, Demonstrated understanding of instructions, follow-up care, medications, Prescriptions given X 1. 17:30 Patient left the ED. mg2 Signatures: Dispatcher [employer] Bonnie Horta RN RN sv Marinas, Patrick, BENITO MUSIC MIXER pm1 Mary Abbott 2 Anali Wells 1 Teofilo Cardona RN RN mg2
--- NOTE | 2018-11-03 16:58 | EDPHYS ---
Physician Documentation [facility] Name: Omayra Parra Age: 27 yrs Sex: Female : 1990 Arrival Date: 11/03/2018 Time: 14:58 Bed 7 Private MD: Abdullahi Guan E ED Physician Jasbir Coleman HPI: 11/03 15:41 This 27 yrs old Female presents to ER via Ambulatory with complaints of pm1 Abdominal Pain, Pelvic Pain. 15:41 The patient presents with abdominal pain suprapubic area radiating to chest. Onset: The pm1 symptoms/episode began/occurred 3 day(s) ago. The symptoms radiate to chest. Associated signs and symptoms: Pertinent positives: chest pain, Pertinent negatives: nausea, vomiting, and diarrhea, diarrhea, dysuria, fever, headache, shortness of breath. The symptoms are described as achy. Modifying factors: The symptoms are alleviated by nothing, the symptoms are aggravated by nothing. Severity of pain: in the emergency department the pain is actually worse. The patient has not experienced similar symptoms in the past, has a history of GERD. The patient has not recently seen a physician. 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 - Social history:: Smoking status: unknown. - Ebola Screening: : No symptoms or risks identified at this time. ROS: 15:41 Constitutional: Negative for fever, chills, and weight loss, Eyes: Negative for injury, pm1 pain, redness, and discharge, ENT: Negative for injury, pain, and discharge, Neck: Negative for injury, pain, and swelling. 15:41 Respiratory: Negative for shortness of breath, cough, wheezing, and pleuritic chest pain. 15:41 Back: Negative for injury and pain, : Negative for injury, bleeding, discharge, and swelling, MS/Extremity: Negative for injury and deformity, Skin: Negative for injury, rash, and discoloration, Neuro: Negative for headache, weakness, numbness, tingling, and seizure. 15:41 Cardiovascular: Positive for chest pain, Negative for edema, palpitations. 15:41 Abdomen/GI: Positive for abdominal pain, of the suprapubic area, Negative for nausea, vomiting, and diarrhea. Exam: 15:41 Constitutional: This is a well developed, well nourished patient who is awake, alert, pm1 and in no acute distress. Head/Face: Normocephalic, atraumatic. Eyes: Pupils equal round and reactive to light, extra-ocular motions intact. Lids and lashes normal. Conjunctiva and sclera are non-icteric and not injected. Cornea within normal limits. Periorbital areas with no swelling, redness, or edema. ENT: Nares patent. No nasal discharge, no septal abnormalities noted. Tympanic membranes are normal and external auditory canals are clear. Oropharynx with no redness, swelling, or masses, exudates, or evidence of obstruction, uvula midline. Mucous membranes moist. Neck: Trachea midline, no thyromegaly or masses palpated, and no cervical lymphadenopathy. Supple, full range of motion without nuchal rigidity, or vertebral point tenderness. No Meningismus. Chest/axilla: Normal chest wall appearance and motion. Nontender with no deformity. No lesions are appreciated. Cardiovascular: Regular rate and rhythm with a normal S1 and S2. No gallops, murmurs, or rubs. No pulse deficits. Respiratory: Lungs have equal breath sounds bilaterally, clear to auscultation and percussion. No rales, rhonchi or wheezes noted. No increased work of breathing, no retractions or nasal flaring. Abdomen/GI: Soft, non-tender, with normal bowel sounds. No distension or tympany. No guarding or rebound. No evidence of tenderness throughout. Back: No spinal tenderness. No costovertebral tenderness. Full range of motion. Skin: Warm, dry with normal turgor. Normal color with no rashes, no lesions, and no evidence of cellulitis. MS/ Extremity: Pulses equal, no cyanosis. Neurovascular intact. Full, normal range of motion. 15:41 Neuro: Orientation: is normal, Motor: is normal, no acute changes. Vital Signs: 15:00 BP 133 / 81; Pulse 76; Resp 18; Temp 98.9(O); Pulse Ox 100% ; Weight 113.4 kg; Height 5 sv ft. 4 in. (162.56 cm); 17:29 BP 122 / 78; Pulse 78; Resp 18; Temp 98; Pulse Ox 100% on R/A; mg2 15:00 Body Mass Index 42.91 (113.40 kg, 162.56 cm) sv MDM: 15:06 Patient medically screened. pm1 15:41 Data reviewed: vital signs. Data interpreted: Pulse oximetry: on room air is 100 %. pm1 Interpretation: normal. 16:56 Counseling: I had a detailed discussion with the patient and/or guardian regarding: the pm1 historical points, exam findings, and any diagnostic results supporting the discharge/admit diagnosis, lab results, radiology results, the need for outpatient follow up, to return to the emergency department if symptoms worsen or persist or if there are any questions or concerns that arise at home. 11/03 15:07 Order name: Basic Metabolic Panel; Complete Time: 16:19 pm11/03 15:07 Order name: CBC with Diff; Complete Time: 16:19 pm11/03 15:07 Order name: Creatinine for Radiology; Complete Time: 16:23 pm11/03 15:07 Order name: Hepatic Function; Complete Time: 16:19 pm11/03 15:07 Order name: Lipase; Complete Time: 16:19 pm11/03 15:25 Order name: Troponin (emerg Dept Use Only); Complete Time: 16:23 pm11/03 15:25 Order name: EKG; Complete Time: 15:26 pm11/03 15:25 Order name: Chest Single View XRAY; Complete Time: 16:52 pm11/03 15:25 Order name: CT Abd/Pelvis - IV Contrast Only; Complete Time: 16:55 pm11/03 15:27 Order name: Urine Dipstick--Ancillary (enter results); Complete Time: 15:56 eb 11/03 15:27 Order name: Urine --Ancillary (enter results); Complete Time: 15:56 eb 11/03 15:07 Order name: IV Saline Lock; Complete Time: 15:59 pm11/03 15:07 Order name: Labs collected and sent; Complete Time: 15:59 pm11/03 15:07 Order name: Urine Dipstick-Ancillary (obtain specimen); Complete Time: 15:15 pm11/03 15:07 Order name: Urine Test (obtain specimen); Complete Time: 15:14 pm1 11/03 15:25 Order name: EKG - Nurse/Tech; Complete Time: 15:59 pm1 Administered Medications: 16:05 Drug: NS 0.9% 1000 ml Route: IV; Rate: 1000 ml; Site: left antecubital; mg2 17:28 Follow up: Response: No adverse reaction; IV Status: Completed infusion; IV Intake: mg2 1000ml 16:06 Drug: fentaNYL (PF) 50 mcg Route: IVP; Site: left antecubital; mg2 17:29 Follow up: Response: No adverse reaction; Marked relief of symptoms mg2 16:06 Drug: Phenergan 12.5 mg Route: IVP; Site: left antecubital; mg2 17:29 Follow up: Response: No adverse reaction; Marked relief of symptoms mg2 Disposition: 11/04 09:19 Co-signature as Attending Physician, Jasbir Coleman MD I agree with the assessment and ren plan of care. Disposition: 11/03/18 16:56 Discharged to Home. Impression: Abdominal and pelvic pain, Other ovarian cysts. - Condition is Stable. - Discharge Instructions: Abdominal Pain, Adult, Ovarian Cyst. - Prescriptions for Tylenol- Codeine #3 300-30 mg Oral Tablet - take 2 tablets by ORAL route every 6 hours As needed; 12 tablet. - Medication Reconciliation Form, Thank You Letter, Antibiotic Education, Prescription Opioid Use, Work release form form. - Follow up: Emergency Department; When: As needed; Reason: Worsening of condition. Follow up: Private Physician; When: 2 - 3 days; Reason: Recheck today's complaints, Continuance of care, Re-evaluation by your physician. - Problem is new. - Symptoms have improved. Signatures: Dispatcher [employer] Bonnie Horta RN RN sv Anderson, Corey, MD MD cha Marinas, Patrick, INSTRUMENTATION ENGINEERING TECHNICIAN INSTRUMENTATION ENGINEERING TECHNICIAN pm1 Teofilo Cardona RN RN mg2 Corrections: (The following items were deleted from the chart) 11/03 17:30 16:56 11/03/2018 16:56 Discharged to Home. Impression: Abdominal and pelvic pain; Other mg2 ovarian cysts. Condition is Stable. Forms are Medication Reconciliation Form, Thank You Letter, Antibiotic Education, Prescription Opioid Use. Follow up: Emergency Department; When: As needed; Reason: Worsening of condition. Follow up: Private Physician; When: 2 - 3 days; Reason: Recheck today's complaints, Continuance of care, Re-evaluation by your physician. Problem is new. Symptoms have improved. pm1
[2018-11-03 17:43] VITALS: O2SAT 100
[2018-11-03 17:45] VITALS: BP 122/78; TEMP 98
--- NOTE | 2018-11-05 07:30 | EKG ---
Test Date: 2018-11-03 Test Time: 15:46:19 Public Relations Sales Marketing: MEASUREMENT RESULTS: Intervals: Rate: 71 MT: 128 QRSD: 88 QT: 420 QTc: 456 [place]: P: 18 MT: 128 QRS: 21 T: 8 INTERPRETIVE STATEMENTS: Normal sinus rhythm Minimal voltage criteria for LVH, may be normal variant Nonspecific T wave abnormality Abnormal ECG Compared to ECG 07/12/2018 16:46:43 Left ventricular hypertrophy now present T-wave abnormality now present Electronically Signed On 11-05-18 07:29:28 CDT by Juan Alberto Urena
== END 2018-11-03 17:30 | disposition home or self-care (01) ==
LOC: ER 14:51
DX: N83.299 Other ovarian cyst, unspecified side (principal); F41.9 Anxiety disorder, unspecified; Z88.5 Allergy status to narcotic agent
CPT/HCPCS: 36415; 71045; 74177; 80048; 80076; 81003; 81025; 83690; 84484; 85025; 93005; 96361; 96374; 96375; 99284; J2550; J3010; J7030; Q9967

== ENCOUNTER 2018-12-09 10:45 | Emergency (ER) | payer SELFPAY ==
[2018-12-09] MEDS ORDERED: HYDROCODONE/CHLORPHEN 5 ML/OSYR ONE (13:15)
--- NOTE | 2018-12-09 13:22 | RAD REPORT ---
EXAM DESCRIPTION: RAD - Chest Pa And Lat (2 Views) - 12/09/2018 1:12 pm CLINICAL HISTORY: COUGH Chest pain. COMPARISON: Chest Single View dated 11/03/2018; Chest Single View dated 09/25/2017 FINDINGS: The lungs are clear. The heart is upper limit of normal in size. No displaced fractures. IMPRESSION: No acute intrathoracic abnormality detected.
--- NOTE | 2018-12-09 13:57 | EDPHYS ---
Physician Documentation [facility] Name: Omayra Parra Age: 28 yrs Sex: Female : 1990 Arrival Date: 12/09/2018 Time: 10:47 Bed 11 Private MD: Abdullahi Guan E ED Physician Jasbir Coleman HPI: 12/09 13:54 This 28 yrs old Female presents to ER via Ambulatory with complaints of Cough.pm1 13:54 The patient or guardian reports cough, with no sputum, flu symptoms. Onset: The pm1 symptoms/episode began/occurred 1 week(s) ago. Severity of symptoms: in the emergency department the symptoms are actually worse. Modifying factors: The symptoms are alleviated by nothing. Associated signs and symptoms: Pertinent positives: chest pain, with cough, with breathing, earache, rhinorrhea, Pertinent negatives: diarrhea, fever, sore throat, vomiting. The patient has not experienced similar symptoms in the past. The patient has not recently seen a physician. Historical: - Allergies: 11: No Known Allergies; ss - PMHx: 11: Anxiety; Migraines; PCOS; ss - PSHx: : ; Exploratory lap; ss - Immunization history:: Adult Immunizations up to date. - Social history:: Smoking status: Patient/guardian denies using tobacco, the patient reports quitting approximately 2 years ago. - Ebola Screening: : Patient denies exposure to infectious person Patient denies travel to an Ebola-affected area in the 21 days before illness onset. ROS: 13:54 Constitutional: Negative for fever, chills, and weight loss, Eyes: Negative for injury, pm1 pain, redness, and discharge. 13:54 Neck: Negative for injury, pain, and swelling, Cardiovascular: Negative for chest pain, palpitations, and edema. 13:54 Abdomen/GI: Negative for abdominal pain, nausea, vomiting, diarrhea, and constipation, Back: Negative for injury and pain, MS/Extremity: Negative for injury and deformity, Skin: Negative for injury, rash, and discoloration, Neuro: Negative for headache, weakness, numbness, tingling, and seizure. 13:54 ENT: Positive for ear pain, rhinorrhea, Negative for sore throat. 13:54 Respiratory: Positive for cough, Negative for shortness of breath, sputum production, wheezing. Exam: 13:54 Constitutional: This is a well developed, well nourished patient who is awake, alert, pm1 and in no acute distress. Head/Face: Normocephalic, atraumatic. Eyes: Pupils equal round and reactive to light, extra-ocular motions intact. Lids and lashes normal. Conjunctiva and sclera are non-icteric and not injected. Cornea within normal limits. Periorbital areas with no swelling, redness, or edema. Neck: Trachea midline, no thyromegaly or masses palpated, and no cervical lymphadenopathy. Supple, full range of motion without nuchal rigidity, or vertebral point tenderness. No Meningismus. 13:54 Cardiovascular: Regular rate and rhythm with a normal S1 and S2. No gallops, murmurs, or rubs. Normal PMI, no JVD. No pulse deficits. Respiratory: Lungs have equal breath sounds bilaterally, clear to auscultation and percussion. No rales, rhonchi or wheezes noted. No increased work of breathing, no retractions or nasal flaring. Abdomen/GI: Soft, non-tender, with normal bowel sounds. No distension or tympany. No guarding or rebound. No evidence of tenderness throughout. Back: No spinal tenderness. No costovertebral tenderness. Full range of motion. Skin: Warm, dry with normal turgor. Normal color with no rashes, no lesions, and no evidence of cellulitis. MS/ Extremity: Pulses equal, no cyanosis. Neurovascular intact. Full, normal range of motion. 13:54 ENT: External ear(s): are unremarkable, Ear canal(s): are normal, TM's: bulging, on the right, erythema, that is moderate, on the right, Examination of the other ear shows no obvious abnormality. 13:54 Chest/axilla: Inspection: normal, Palpation: is normal. 13:54 Neuro: Orientation: is normal, Motor: is normal, moves all fours. Vital Signs: 11:01 BP 121 / 73; Pulse 72; Resp 16; Temp 98.6(O); Pulse Ox 100% on R/A; Height 5 ft. 2 in. ss (157.48 cm); Pain 9/10; MDM: 12:[address] [facility] 13:54 Data reviewed: vital signs. Data interpreted: Pulse oximetry: on room air is 100 %. pm1 Interpretation: normal. Counseling: I had a detailed discussion with the patient and/or guardian regarding: the historical points, exam findings, and any diagnostic results supporting the discharge/admit diagnosis, lab results, radiology results, the need for outpatient follow up, to return to the emergency department if symptoms worsen or persist or if there are any questions or concerns that arise at home. 12/09 12:30 Order name: Flu; Complete Time: 13:40 pm1 12/09 12:30 Order name: Chest Pa And Lat (2 Views) XRAY; Complete Time: 13:54 pm1 Administered Medications: 13:21 Drug: Tussionex Pennkinetic ER 5 ml Route: PO; ss 14:27 Follow up: Response: Marked relief of symptoms ss Disposition: 16:50 Co-signature as Attending Physician, Jasbir Coleman MD I agree with the assessment and ren plan of care. Disposition: 12/09/18 13:55 Discharged to Home. Impression: Bronchitis, not specified as acute or chronic, Otitis media, unspecified, right ear. - Condition is Stable. - Discharge Instructions: Acute Bronchitis, Adult, Otitis Media, Adult, How to Use an Inhaler, Cough, Adult. - Prescriptions for Albuterol Sulfate 90 mcg/actuation - inhale 1-2 puff by INHALATION route every 4-6 hours; 1 Inhaler. Guaifenesin AC 10- 100 mg/5 mL Oral Liquid - take 10 milliliter by ORAL route every 4 hours As needed; 240 milliliter. Medrol (Ye) 4 mg Oral Tablets, Dose Pack - take 1 tablet by ORAL route as directed - follow package instructions; 1 packet. Augmentin 875- 125 mg Oral Tablet - take 1 tablet by ORAL route every 12 hours for 10 days; 20 tablet. - Medication Reconciliation Form, Thank You Letter, Antibiotic Education, Prescription Opioid Use form. - Follow up: Emergency Department; When: As needed; Reason: Worsening of condition. Follow up: Private Physician; When: 2 - 3 days; Reason: Recheck today's complaints, Continuance of care, Re-evaluation by your physician. - Problem is new. - Symptoms have improved. Signatures: Dispatcher [employer] Jasbir Nguyen MD MD cha Smirch, Shelby, RN RN Jayson Ndiaye NP DROP HAMMER SETTER UP pm1 Corrections: (The following items were deleted from the chart) 14:18 13:55 12/09/2018 13:55 Discharged to Home. Impression: Bronchitis, not specified as pm1 acute or chronic. Condition is Stable. Forms are Medication Reconciliation Form, Thank You Letter, Antibiotic Education, Prescription Opioid Use. Follow up: Emergency Department; When: As needed; Reason: Worsening of condition. Follow up: Private Physician; When: 2 - 3 days; Reason: Recheck today's complaints, Continuance of care, Re-evaluation by your physician. Problem is new. Symptoms have improved. pm1 14:27 14:18 12/09/2018 13:55 Discharged to Home. Impression: Bronchitis, not specified as ss acute or chronic; Otitis media, unspecified, right ear. Condition is Stable. Discharge Instructions: Acute Bronchitis, Adult, How to Use an Inhaler, Cough, Adult. Prescriptions for Albuterol Sulfate 90 mcg/actuation - inhale 1-2 puff by INHALATION route every 4-6 hours; 1 Inhaler, Guaifenesin AC 10-100 mg/5 mL Oral Liquid - take 10 milliliter by ORAL route every 4 hours As needed; 240 milliliter, Medrol (Ye) 4 mg Oral Tablets, Dose Pack - take 1 tablet by ORAL route as directed - follow package instructions; 1 packet. and Forms are Medication Reconciliation Form, Thank You Letter, Antibiotic Education, Prescription Opioid Use. Follow up: Emergency Department; When: As needed; Reason: Worsening of condition. Follow up: Private Physician; When: 2 - 3 days; Reason: Recheck today's complaints, Continuance of care, Re-evaluation by your physician. Problem is new. Symptoms have improved. pm1
--- NOTE | 2018-12-09 13:57 | ER ---
Nurse's Notes [facility] Name: Omayra Parra Age: 28 yrs Sex: Female : 1990 Arrival Date: 12/09/2018 Time: 10:47 Bed 11 Private MD: Abdullahi Guan E Diagnosis: Bronchitis, not specified as acute or chronic;Otitis media, unspecified, right ear Presentation: 12/09 10:59 Presenting complaint: Patient states: "About a week ago, I got ill real fast, and about ss 4-5 days after I got this horrible cough. It's hollow, deep and painful. I wake up in the morning and I hear rattling. Nothing is coming up.". Transition of care: patient was not received from another setting of care. Onset of symptoms. Onset of symptoms was November 29, 2018. Risk Assessment: Do you want to hurt yourself or someone else? Patient reports no desire to harm self or others. Initial Sepsis Screen: Does the patient meet any 2 criteria? No. Patient's initial sepsis screen is negative. Does the patient have a suspected source of infection? No. Patient's initial sepsis screen is negative. Care prior to arrival: None. 10:59 Method Of Arrival: Ambulatory ss 10:59 Acuity: GAYE 4 ss Historical: - Allergies: 11:01 No Known Allergies; ss - PMHx: 11:01 Anxiety; Migraines; PCOS; ss - PSHx: 11:01 ; Exploratory lap; ss - Immunization history:: Adult Immunizations up to date. - Social history:: Smoking status: Patient/guardian denies using tobacco, the patient reports quitting approximately 2 years ago. - Ebola Screening: : Patient denies exposure to infectious person Patient denies travel to an Ebola-affected area in the 21 days before illness onset. Screenin:35 Abuse screen: Denies threats or abuse. Denies injuries from another. Nutritional ss screening: No deficits noted. Tuberculosis screening: Never had TB. Fall Risk None identified. Assessment: 12:30 General: Appears uncomfortable, Behavior is calm, cooperative. Pain: Complains of pain ss in chest Pain does not radiate. Pain currently is 9 out of 10 on a pain scale. Pain began 1 week ago Is continuous, Aggravated by coughing. Neuro: Level of Consciousness is awake, alert, obeys commands. Cardiovascular: Pulses are palpable in right radial artery and left radial artery. Respiratory: Reports cough that is hacking, persistent Airway is patent Respiratory effort is even, unlabored, Respiratory pattern is regular, symmetrical, Breath sounds are clear bilaterally. GI: Patient currently denies diarrhea, vomiting. : No signs and/or symptoms were reported regarding the genitourinary system. EENT: Oral mucosa is moist. Derm: Skin is intact, is healthy with good turgor, Skin is dry, Skin is pink, warm \\T\\ dry. normal. 14:19 Reassessment: Patient appears in no apparent distress at this time. Patient and/or ss family updated on plan of care and expected duration. Pain level reassessed. Patient is alert, oriented x 3, equal unlabored respirations, skin warm/dry/pink. Vital Signs: 11:01 BP 121 / 73; Pulse 72; Resp 16; Temp 98.6(O); Pulse Ox 100% on R/A; Height 5 ft. 2 in. ss (157.48 cm); Pain 9/10; ED Course: 10:47 Patient arrived in ED. am2 10:49 Fidel Willams MD is Private Physician. am2 10:49 Abdullahi Guan MD is Private Physician. am2 11:00 Triage completed. ss 11:01 Arm band placed on right wrist. ss 12:28 Jayson Meehan NP is PHCP. pm1 12:28 Jasbir Coleman MD is Attending Physician. pm1 12:35 Patient has correct armband on for positive identification. Pulse ox on. NIBP on. ss 12:35 Patient maintains SpO2 saturation greater than 95% on room air. ss 13:11 Chest Pa And Lat (2 Views) XRAY In Process Unspecified. EDMS 13:21 Rachell Rodriguez, SUSAN is Primary Nurse. ss 14:19 No provider procedures requiring assistance completed. Patient did not have IV access ss during this emergency room visit. Administered Medications: 13:21 Drug: Tussionex Pennkinetic ER 5 ml Route: PO; ss 14:27 Follow up: Response: Marked relief of symptoms ss Outcome: 13:55 Discharge ordered by . pm1 14:19 Discharged to home ambulatory, with family. ss 14:19 Condition: good 14:19 Discharge instructions given to patient, family, Instructed on discharge instructions, follow up and referral plans. medication usage, Demonstrated understanding of instructions, follow-up care, medications, Prescriptions given X 4. 14:27 Patient left the ED. Signatures: Dispatcher [employer] Rachell Choi RN RN ss Jayson Meehan, PET COUNSELOR PET COUNSELOR pm1 Mary Abbott am2
[2018-12-09 14:32] VITALS: BP 121/73; TEMP 98.6; O2SAT 100
--- OUTSIDE RECORDS SUMMARY | 2018-12-15 21:17 | XMS REPORT ---
:1990 [facility] Address [address] [place] [address] Dr. Magallon [address] [place] [id number] Care Team Providers Name Role Phone Unavailable Unavailable Unavailable Problems This patient has no known problems. Allergies, Adverse Reactions, Alerts This patient has no known allergies or adverse reactions. Medications This patient has no known medications.
== END 2018-12-09 14:27 | disposition home or self-care (01) ==
LOC: ER 10:45
DX: J40 Bronchitis, not specified as acute or chronic (principal); H66.91 Otitis media, unspecified, right ear; Z87.891 Personal history of nicotine dependence
CPT/HCPCS: 71046; 87804; 99284

== ENCOUNTER 2019-01-08 17:35 | Emergency (ER) | payer SELFPAY ==
--- OUTSIDE RECORDS SUMMARY | 2019-01-08 17:37 | XMS REPORT ---
:1990 [facility] Address [address] [place] [address] Dr. Magallon [address] [place] [id number] Care Team Providers Name Role Phone Unavailable Unavailable Unavailable Problems This patient has no known problems. Allergies, Adverse Reactions, Alerts This patient has no known allergies or adverse reactions. Medications This patient has no known medications.
--- NOTE | 2019-01-08 19:48 | ER ---
Nurse's Notes [facility] Name: Omayra Parra Age: 28 yrs Sex: Female : 1990 Arrival Date: 01/08/2019 Time: 17:46 Bed DIS9 Private MD: Abdullahi Guan E Diagnosis: Acute upper respiratory infection, unspecified Presentation: 01/08 17:52 Presenting complaint: Sore throat, bilateral ear pain, and sinus congestion x 3 days. hb Denies fever. Transition of care: patient was not received from another setting of care. Onset of symptoms was January 05, 2019. Risk Assessment: Do you want to hurt yourself or someone else? Patient reports no desire to harm self or others. Care prior to arrival: None. 17:52 Method Of Arrival: Ambulatory hb 17:52 Acuity: GAYE 4 hb 19:56 Initial Sepsis Screen: Does the patient meet any 2 criteria? No. Patient's initial aj1 sepsis screen is negative. Does the patient have a suspected source of infection? No. Patient's initial sepsis screen is negative. Historical: - Allergies: 17:53 No Known Drug Allergies; hb - PMHx: 17:53 Anxiety; Migraines; PCOS; Trichiamonis; hb - PSHx: 17:53 Exploratory lap; ; hb - Immunization history:: Adult Immunizations up to date. - Social history:: Smoking status: Patient uses tobacco products, smokes one-half pack cigarettes per day. - Ebola Screening: : No symptoms or risks identified at this time. Screenin:50 Abuse screen: Denies threats or abuse. Denies injuries from another. Nutritional aj1 screening: No deficits noted. Tuberculosis screening: No symptoms or risk factors identified. 19:56 Fall Risk None identified. aj1 Assessment: 17:50 General: Appears in no apparent distress. comfortable, Behavior is calm, cooperative, aj1 appropriate for age. Pain: Complains of pain in right ear and left ear. Neuro: Level of Consciousness is awake, alert, obeys commands. Cardiovascular: Heart tones S1 S2 present Patient's skin is warm and dry. Respiratory: Airway is patent Respiratory effort is even, unlabored, Respiratory pattern is regular, symmetrical, Breath sounds are clear bilaterally. GI: No signs and/or symptoms were reported involving the gastrointestinal system. : No signs and/or symptoms were reported regarding the genitourinary system. EENT: Reports nasal congestion nasal discharge bilateral ear pain, sore throat. Derm: No signs and/or symptoms reported regarding the dermatologic system. Skin is pink, warm \T\ dry. normal. Musculoskeletal: No signs and/or symptoms reported regarding the musculoskeletal system. Circulation, motion, and sensation intact. 18:50 Reassessment: Patient appears in no apparent distress at this time. No changes from aj1 previously documented assessment. Patient and/or family updated on plan of care and expected duration. Pain level reassessed. Patient is alert, oriented x 3, equal unlabored respirations, skin warm/dry/pink. 19:50 Reassessment: Patient appears in no apparent distress at this time. No changes from aj1 previously documented assessment. Patient and/or family updated on plan of care and expected duration. Pain level reassessed. Patient is alert, oriented x 3, equal unlabored respirations, skin warm/dry/pink. Vital Signs: 17:53 BP 140 / 91; Pulse 82; Resp 16; Temp 98.8; Pulse Ox 100% on R/A; Weight 85.73 kg; hb Height 5 ft. 2 in. (157.48 cm); Pain 6/10; 17:53 Body Mass Index 34.57 (85.73 kg, 157.48 cm) hb ED Course: 17:46 Patient arrived in ED. mr 17:46 Abdullahi Guan MD is Private Physician. mr 17:50 Patient has correct armband on for positive identification. aj1 17:50 No provider procedures requiring assistance completed. aj1 17:52 Triage completed. hb 17:53 Arm band placed on. hb 17:57 Rama Engel FNP-C is PHCP. kb 17:57 Gera Orozco MD is Attending Physician. kb 18:48 Winnie Lieberman, SUSAN is Primary Nurse. aj1 19:56 Patient did not have IV access during this emergency room visit. aj1 Administered Medications: No medications were administered Outcome: 19:47 Discharge ordered by . kb 20:13 Discharged to home ambulatory, with family. aj1 20:13 Condition: good 20:13 Discharge instructions given to patient, family, Instructed on discharge instructions, follow up and referral plans. Demonstrated understanding of instructions, follow-up care. 20:14 Patient left the ED. aj1 Signatures: Rama Engel, CHECK PROCESSING CLERK-C CHECK PROCESSING CLERK-Ckb Winnie Lieberman, RN RN aj1 Rosa Schmid mr Helen Mccain, RN RN Corrections: (The following items were deleted from the chart) :42 19:39 General: Appears in no apparent distress. comfortable, Behavior is calm, aj1 cooperative, appropriate for age, aj1 : 19:39 Pain: Complains of pain in right ear and left ear aj1 [facility] 19:39 Neuro: Level of Consciousness is awake, alert, obeys commands, aj1 aj : 19:39 Cardiovascular: Heart tones S1 S2 present Patient's skin is warm and dry. aj1 aj : 19:39 Respiratory: Airway is patent Respiratory effort is even, unlabored, Respiratory aj1 pattern is regular, symmetrical, Breath sounds are clear bilaterally. aj1 : 19:39 GI: No signs and/or symptoms were reported involving the gastrointestinal system. aj1 aj1 : 19:39 : No signs and/or symptoms were reported regarding the genitourinary system. aj1aj1 : 19:39 EENT: Reports nasal congestion nasal discharge bilateral ear pain, sore throat. aj1 aj1 :42 19:39 Derm: No signs and/or symptoms reported regarding the dermatologic system. Skin aj1 is pink, warm \T\ dry. normal, aj1 19:39 Musculoskeletal: No signs and/or symptoms reported regarding the musculoskeletal aj1 system. Circulation, motion, and sensation intact. aj1
--- NOTE | 2019-01-08 19:48 | EDPHYS ---
Physician Documentation [facility] Name: Omayra Parra Age: 28 yrs Sex: Female : 1990 Arrival Date: 01/08/2019 Time: 17:46 Bed DIS9 Private MD: Abdullahi Guan E ED Physician Gera Orozco HPI: 01/08 19:25 This 28 yrs old Female presents to ER via Ambulatory with complaints of Ear kb Pain, Congestion, Cough. 19:25 The patient or guardian reports cough, that is intermittent, described as moderate, kb with no sputum. Onset: The symptoms/episode began/occurred 3 day(s) ago. Severity of symptoms: At their worst the symptoms were mild, moderate, in the emergency department the symptoms are unchanged. Modifying factors: The symptoms are alleviated by nothing, the symptoms are aggravated by nothing. Associated signs and symptoms: Pertinent positives: earache, sore throat, Pertinent negatives: chest pain, diarrhea, fever, nausea, rhinorrhea, vomiting. The patient has not experienced similar symptoms in the past. The patient has not recently seen a physician. Pt reports cough, congestion and fullness to bilateral ears for a few days. Son has similar symptoms. Historical: - Allergies: 17:53 No Known Drug Allergies; hb - PMHx: 17:53 Anxiety; Migraines; PCOS; Trichiamonis; hb - PSHx: 17:53 Exploratory lap; ; hb - Immunization history:: Adult Immunizations up to date. - Social history:: Smoking status: Patient uses tobacco products, smokes one-half pack cigarettes per day. - Ebola Screening: : No symptoms or risks identified at this time. ROS: 19:24 Constitutional: Negative for fever, chills, and weight loss, Neck: Negative for injury, kb pain, and swelling, Cardiovascular: Negative for chest pain, palpitations, and edema, Abdomen/GI: Negative for abdominal pain, nausea, vomiting, diarrhea, and constipation, Back: Negative for injury and pain, MS/Extremity: Negative for injury and deformity, Skin: Negative for injury, rash, and discoloration, Neuro: Negative for headache, weakness, numbness, tingling, and seizure. 19:24 ENT: Positive for ear pain, sinus congestion, sore throat. 19:24 Respiratory: Positive for cough. Exam: 19:24 Constitutional: This is a well developed, well nourished patient who is awake, alert, kb and in no acute distress. Head/Face: Normocephalic, atraumatic. ENT: Nares patent. No nasal discharge, no septal abnormalities noted. Tympanic membranes are normal and external auditory canals are clear. Oropharynx with no redness, swelling, or masses, exudates, or evidence of obstruction, uvula midline. Mucous membranes moist. Neck: Trachea midline, no thyromegaly or masses palpated, and no cervical lymphadenopathy. Supple, full range of motion without nuchal rigidity, or vertebral point tenderness. No Meningismus. Chest/axilla: Normal chest wall appearance and motion. Nontender with no deformity. No lesions are appreciated. Cardiovascular: Regular rate and rhythm with a normal S1 and S2. No gallops, murmurs, or rubs. Normal PMI, no JVD. No pulse deficits. Respiratory: Lungs have equal breath sounds bilaterally, clear to auscultation and percussion. No rales, rhonchi or wheezes noted. No increased work of breathing, no retractions or nasal flaring. Abdomen/GI: Soft, non-tender, with normal bowel sounds. No distension or tympany. No guarding or rebound. No evidence of tenderness throughout. Back: No spinal tenderness. No costovertebral tenderness. Full range of motion. Skin: Warm, dry with normal turgor. Normal color with no rashes, no lesions, and no evidence of cellulitis. MS/ Extremity: Pulses equal, no cyanosis. Neurovascular intact. Full, normal range of motion. Neuro: Awake and alert, GCS 15, oriented to person, place, time, and situation. Cranial nerves II-XII grossly intact. Motor strength 5/5 in all extremities. Sensory grossly intact. Cerebellar exam normal. Normal gait. Vital Signs: 17:53 BP 140 / 91; Pulse 82; Resp 16; Temp 98.8; Pulse Ox 100% on R/A; Weight 85.73 kg; hb Height 5 ft. 2 in. (157.48 cm); Pain 6/10; 17:53 Body Mass Index 34.57 (85.73 kg, 157.48 cm) hb MDM: 17:58 Patient medically screened. kb 19:25 Data reviewed: vital signs, nurses notes. Data interpreted: Pulse oximetry: on room air kb is 100 %. Interpretation: normal. 19:46 Counseling: I had a detailed discussion with the patient and/or guardian regarding: the kb historical points, exam findings, and any diagnostic results supporting the discharge/admit diagnosis, lab results, the need for outpatient follow up, a family practitioner, to return to the emergency department if symptoms worsen or persist or if there are any questions or concerns that arise at home. 01/08 18:15 Order name: Flu; Complete Time: 19:45 kb 01/08 18:15 Order name: Strep; Complete Time: 19:45 kb 01/08 19:44 Order name: Throat Culture EDMS Administered Medications: No medications were administered Disposition: 01/09 09:02 Co-signature as Attending Physician, Gera Orozco MD Available for consultation ps1 during the encounter in the ED. Signing chart for administrative purposes. . Disposition: 01/08/19 19:47 Discharged to Home. Impression: Acute upper respiratory infection, unspecified. - Condition is Stable. - Discharge Instructions: Upper Respiratory Infection, Adult, [id number], Viral Respiratory Infection, [id number]. - Medication Reconciliation Form, Thank You Letter, Antibiotic Education, Prescription Opioid Use form. - Follow up: Emergency Department; When: As needed; Reason: Worsening of condition. Follow up: Private Physician; When: 2 - 3 days; Reason: Recheck today's complaints, Continuance of care, Re-evaluation by your physician. Signatures: Dispatcher [employer] EDUT Rama Engel, ROMANC NIKOLAI-Winnie Serrano RN RN aj1 Helen Mccain RN RN Gera Orozco MD MD ps1 Corrections: (The following items were deleted from the chart) 01/08 20:14 19:47 01/08/2019 19:47 Discharged to Home. Impression: Acute upper respiratory aj1 infection, unspecified. Condition is Stable. Forms are Medication Reconciliation Form, Thank You Letter, Antibiotic Education, Prescription Opioid Use. Follow up: Emergency Department; When: As needed; Reason: Worsening of condition. Follow up: Private Physician; When: 2 - 3 days; Reason: Recheck today's complaints, Continuance of care, Re-evaluation by your physician. kb
[2019-01-08 21:54] VITALS: BP 140/91; TEMP 98.8; O2SAT 100
== END 2019-01-08 20:14 | disposition home or self-care (01) ==
LOC: ER 17:35
DX: J06.9 Acute upper respiratory infection, unspecified (principal); F17.210 Nicotine dependence, cigarettes, uncomplicated
CPT/HCPCS: 87070; 87081; 87804; 99281

== ENCOUNTER 2019-01-18 12:36 | Emergency (ER) | payer SELFPAY ==
--- OUTSIDE RECORDS SUMMARY | 2019-01-18 12:38 | XMS REPORT ---
:1990 [facility] Address [address] [place] [address] Dr. Mag[address]on [address] [place] [id number] Care Team Providers Name Role Phone Unavailable Unavailable Unavailable Problems This patient has no known problems. Allergies, Adverse Reactions, Alerts This patient has no known allergies or adverse reactions. Medications This patient has no known medications.
[2019-01-18] MEDS ORDERED: KETOROLAC 30 MG/ML INJ ONE (13:00)
--- NOTE | 2019-01-18 13:23 | RAD REPORT ---
EXAM DESCRIPTION: RAD - Knee Left 3 View - 01/18/2019 1:16 pm CLINICAL HISTORY: PAIN COMPARISON: No comparisons FINDINGS: No bone or joint abnormality is detected.
--- NOTE | 2019-01-18 14:09 | EDPHYS ---
Physician Documentation [facility] Name: Omayra Parra Age: 28 yrs Sex: Female : 1990 Arrival Date: 01/18/2019 Time: 12:37 Bed 16 Private MD: ED Physician Jasbir Coleman HPI: 01/18 13:56 This 28 yrs old Female presents to ER via Ambulatory with complaints of Knee kb Pain - swelling. 13:56 The patient presents with pain, that is acute, tenderness. The complaints affect the kb left knee. Context: The problem was sustained at home, resulted from an unknown cause, the patient can partially bear weight. Onset: The symptoms/episode began/occurred this morning. Modifying factors: The symptoms are alleviated by nothing. the symptoms are aggravated by movement, bending knee. Associated signs and symptoms: The patient has no apparent associated signs or symptoms. Treatment prior to arrival includes: no previous treatment. Severity of symptoms: At their worst the symptoms were moderate, in the emergency department the symptoms are unchanged. The patient has not experienced similar symptoms in the past. The patient has not recently seen a physician. Pt reports left knee pain that started upon waking this morning. Reports past knee injuries, but none recently. Historical: - Allergies: 12:43 No Known Drug Allergies; sv - PMHx: 12:43 Anxiety; Migraines; PCOS; Trichiamonis; sv - PSHx: 12:43 Exploratory lap; ; sv - Immunization history:: Flu vaccine is not up to date. - Social history:: Smoking status: Patient uses tobacco products, denies chronic smoking, but will smoke occasionally. - Ebola Screening: : No symptoms or risks identified at this time. ROS: 13:52 Constitutional: Negative for fever, chills, and weight loss, ENT: Negative for injury, kb pain, and discharge, Neck: Negative for injury, pain, and swelling, Cardiovascular: Negative for chest pain, palpitations, and edema, Respiratory: Negative for shortness of breath, cough, wheezing, and pleuritic chest pain, Abdomen/GI: Negative for abdominal pain, nausea, vomiting, diarrhea, and constipation, Skin: Negative for injury, rash, and discoloration, Neuro: Negative for headache, weakness, numbness, tingling, and seizure. 13:52 MS/extremity: Positive for decreased range of motion, pain, tenderness, of the left knee. Exam: 13:52 Constitutional: This is a well developed, well nourished patient who is awake, alert, kb and in no acute distress. Head/Face: Normocephalic, atraumatic. ENT: Nares patent. No nasal discharge, no septal abnormalities noted. Tympanic membranes are normal and external auditory canals are clear. Oropharynx with no redness, swelling, or masses, exudates, or evidence of obstruction, uvula midline. Mucous membranes moist. Neck: Trachea midline, no thyromegaly or masses palpated, and no cervical lymphadenopathy. Supple, full range of motion without nuchal rigidity, or vertebral point tenderness. No Meningismus. Chest/axilla: Normal chest wall appearance and motion. Nontender with no deformity. No lesions are appreciated. Cardiovascular: Regular rate and rhythm with a normal S1 and S2. No gallops, murmurs, or rubs. Normal PMI, no JVD. No pulse deficits. Respiratory: Lungs have equal breath sounds bilaterally, clear to auscultation and percussion. No rales, rhonchi or wheezes noted. No increased work of breathing, no retractions or nasal flaring. Abdomen/GI: Soft, non-tender, with normal bowel sounds. No distension or tympany. No guarding or rebound. No evidence of tenderness throughout. Back: No spinal tenderness. No costovertebral tenderness. Full range of motion. Skin: Warm, dry with normal turgor. Normal color with no rashes, no lesions, and no evidence of cellulitis. Neuro: Awake and alert, GCS 15, oriented to person, place, time, and situation. Cranial nerves II-XII grossly intact. Motor strength 5/5 in all extremities. Sensory grossly intact. Cerebellar exam normal. Normal gait. 13:52 Musculoskeletal/extremity: Extremities: grossly normal except: noted in the left knee: decreased ROM, pain, tenderness, ROM: limited active range of motion due to pain, Circulation is intact in all extremities. Sensation intact. Weight bearing: able to fully bear weight. Vital Signs: 12:43 BP 121 / 82; Pulse 82; Resp 16; Temp 97.6; Pulse Ox 95% ; Height 5 ft. 2 in. (157.48 sv cm); MDM: 12:47 Patient medically screened. kb 13:56 Data reviewed: vital signs, nurses notes. Data interpreted: Pulse oximetry: on room air kb is 95 %. Interpretation: normal. Counseling: I had a detailed discussion with the patient and/or guardian regarding: the historical points, exam findings, and any diagnostic results supporting the discharge/admit diagnosis, radiology results, the need for outpatient follow up, a orthopedic surgeon, to return to the emergency department if symptoms worsen or persist or if there are any questions or concerns that arise at home. 01/18 12:53 Order name: Knee Left 3 View XRAY; Complete Time: 13:25 kb 01/18 14:07 Order name: Knee Immobilizer; Complete Time: 15:08 kb 01/18 14:08 Order name: Crutches; Complete Time: 15:08 kb Administered Medications: 13:02 Drug: TORadol 60 mg Route: IM; Site: left gluteus; rb1 13:20 Follow up: Response: No adverse reaction; Pain is decreased rb1 Disposition: 01/18/19 14:09 Discharged to Home. Impression: Pain in left knee. - Condition is Stable. - Discharge Instructions: Knee Pain, [id number]. - Prescriptions for Diclofenac Sodium 75 mg Oral Tablet, Delayed Release (E.C.) - take 1 tablet by ORAL route 2 times per day As needed; 30 tablet. - Medication Reconciliation Form, Thank You Letter, Antibiotic Education, Prescription Opioid Use, Work release form form. - Follow up: Emergency Department; When: As needed; Reason: Worsening of condition. Follow up: Private Physician; When: 2 - 3 days; Reason: Recheck today's complaints, Continuance of care, Re-evaluation by your physician. Addendum: 01/20/2019 10:19 Co-signature as Attending Physician, Jasbir Coleman MD I agree with the assessment and c lovell plan of care. Signatures: Dispatcher [employer] Rama Cortez, BEN MENCHACA-Bonnie Nam, RN RN Jasbir George MD MD cha Barber, Rebecca, RN RN rb1 Corrections: (The following items were deleted from the chart) 01/18 15:09 14:09 01/18/2019 14:09 Discharged to Home. Impression: Pain in left knee. Condition is rb1 Stable. Forms are Work release form, Medication Reconciliation Form, Thank You Letter, Antibiotic Education, Prescription Opioid Use. Follow up: Emergency Department; When: As needed; Reason: Worsening of condition. Follow up: Private Physician; When: 2 - 3 days; Reason: Recheck today's complaints, Continuance of care, Re-evaluation by your physician. kb
--- NOTE | 2019-01-18 14:09 | ER ---
Nurse's Notes [facility] Name: Omayra Parra Age: 28 yrs Sex: Female : 1990 Arrival Date: 01/18/2019 Time: 12:37 Bed 16 Private MD: Diagnosis: Pain in left knee Presentation: 01/18 12:42 Presenting complaint: Patient states: right knee pain and swelling started this sv morning, reports old injury when she was 16 yo. Denies recent fall or injury. Transition of care: patient was not received from another setting of care. Onset of symptoms was January 18, 2019. Risk Assessment: Do you want to hurt yourself or someone else? Patient reports no desire to harm self or others. Care prior to arrival: Medication(s) given: Motrin, taken this morning. 12:42 Method Of Arrival: Ambulatory sv 12:42 Acuity: GAYE 4 sv 12:46 Initial Sepsis Screen: Does the patient meet any 2 criteria? No. Patient's initial rb1 sepsis screen is negative. Does the patient have a suspected source of infection? No. Patient's initial sepsis screen is negative. Historical: - Allergies: 12:43 No Known Drug Allergies; sv - PMHx: 12:43 Anxiety; Migraines; PCOS; Trichiamonis; sv - PSHx: 12:43 Exploratory lap; ; sv - Immunization history:: Flu vaccine is not up to date. - Social history:: Smoking status: Patient uses tobacco products, denies chronic smoking, but will smoke occasionally. - Ebola Screening: : No symptoms or risks identified at this time. Screenin:46 Abuse screen: Denies threats or abuse. Nutritional screening: No deficits noted. rb1 Tuberculosis screening: No symptoms or risk factors identified. Fall Risk No fall in past 12 months (0 pts). Secondary diagnosis (15 points) impaired mobility, No IV (0 pts). Ambulatory Aid- None/Bed Rest/Nurse Assist (0 pts). Gait- Impaired (20 pts.). Mental Status- Oriented to own ability (0 pts). Total Arias Fall Scale indicates Low Risk Score (25-44 pts). Fall prevention measures have been instituted. Side Rails Up X 2 Placed close to Nursing Station 1:1 attendant Assigned to Pt. Frequent Obs/Assesments occuring As available Patient and Family Educated on Fall Prevention Program and strategies. Assessment: 12:46 General: Appears in no apparent distress. comfortable, Behavior is calm, cooperative. rb1 Pain: Complains of pain in left knee Pain currently is 9 out of 10 on a pain scale. Pain began today Aggravated by weight bearing. Neuro: Level of Consciousness is awake, alert, obeys commands, Oriented to person, place, time, situation. Cardiovascular: Capillary refill < 3 seconds is brisk in bilateral fingers. Respiratory: Airway is patent Respiratory effort is even, unlabored, Respiratory pattern is regular, symmetrical. GI: No signs and/or symptoms were reported involving the gastrointestinal system. : No signs and/or symptoms were reported regarding the genitourinary system. Derm: Skin is pink, warm \T\ dry. Musculoskeletal: Denies injury to the left knee. Vital Signs: 12:43 BP 121 / 82; Pulse 82; Resp 16; Temp 97.6; Pulse Ox 95% ; Height 5 ft. 2 in. (157.48 sv cm); ED Course: 12:37 Patient arrived in ED. as 12:43 Triage completed. sv 12:43 Arm band placed on. sv 12:46 Rama Engel FNP-C is PHCP. kb 12:46 Patient has correct armband on for positive identification. Placed in gown. Bed in low rb1 position. Call light in reach. Side rails up X 1. Pulse ox on. NIBP on. 12:47 Jasbir Coleman MD is Attending Physician. kb 12:48 Etsefani Palomo, RN is Primary Nurse. rb1 13:16 Knee Left 3 View XRAY In Process Unspecified. EDMS 15:09 No provider procedures requiring assistance completed. Patient did not have IV access rb1 during this emergency room visit. Administered Medications: 13:02 Drug: TORadol 60 mg Route: IM; Site: left gluteus; rb1 13:20 Follow up: Response: No adverse reaction; Pain is decreased rb1 Outcome: 14:09 Discharge ordered by . kb 15:09 Patient left the ED. rb1 15:09 Discharged to home via wheelchair, with crutches, with family. rb1 15:09 Condition: stable 15:09 Discharge instructions given to patient, Instructed on discharge instructions, follow up and referral plans. medication usage, Demonstrated understanding of instructions, follow-up care, medications, Prescriptions given X 1. Signatures: Dispatcher [employer] Rama Cortez, DIRECTOR BUSINESS SYSTEMS-C DIRECTOR [employer] SYSTEMS-Bonnie Nam, RN RN Ruth Oglesby Rebecca, RN RN rb1
[2019-01-18 15:14] VITALS: BP 121/82; TEMP 97.6; O2SAT 95
== END 2019-01-18 15:09 | disposition home or self-care (01) ==
LOC: ER 12:36
DX: M25.562 Pain in left knee (principal); Z72.0 Tobacco use
CPT/HCPCS: 96372; 99284

== ENCOUNTER 2019-04-16 22:29 | Emergency (ER) | payer SELFPAY ==
--- OUTSIDE RECORDS SUMMARY | 2019-04-16 22:31 | XMS REPORT ---
:1990 [facility] Address [address] [place] [address] Dr. Magallon [address] [place] [id number] Care Team Providers Name Role Phone Unavailable Unavailable Unavailable Problems This patient has no known problems. Allergies, Adverse Reactions, Alerts This patient has no known allergies or adverse reactions. Medications This patient has no known medications.
--- NOTE | 2019-04-16 23:59 | ER ---
Nurse's Notes [facility] Name: Omayra Parra Age: 28 yrs Sex: Female : 1990 Arrival Date: 04/16/2019 Time: 22:32 Bed 11 [facility] MD: Diagnosis: Scabies Presentation: 04/15 23:22 Chief complaint: Patient states: I think we had bed bugs because I have multiple bites tl1 all over my arms and legs. The spots itch and I am scratching my skin raw. Coronavirus screen: The patient has NOT traveled to a country currently being monitored by the [facility] within the last 14 days. Proceed with normal triage procedures. Ebola Screen: Patient negative for fever greater than or equal to 101.5 degrees Fahrenheit, and additional compatible Ebola Virus Disease symptoms Patient denies exposure to infectious person. Patient denies travel to an Ebola-affected area in the 21 days before illness onset. Initial Sepsis Screen: Does the patient meet any 2 criteria? No. Patient's initial sepsis screen is negative. Does the patient have a suspected source of infection? No. Patient's initial sepsis screen is negative. Risk Assessment: Do you want to hurt yourself or someone else? Patient reports no desire to harm self or others. 23:22 Method Of Arrival: Ambulatory tl1 23:22 Acuity: GAYE 4 tl1 Triage Assessment: 23:28 Bite description: by insect, animal information: vaccination(s) is not applicable. bb Historical: - Allergies: 23:25 No Known Allergies; tl1 - Home Meds: 23:25 Xanax 2 mg Oral tab as needed [Active]; tl1 - PMHx: 23:25 Anxiety; Migraines; PCOS; Trichiamonis; tl1 - Immunization history:: Adult Immunizations up to date. - Social history:: Smoking status: unknown. Screenin:28 Abuse screen: Denies threats or abuse. Nutritional screening: No deficits noted. bb Tuberculosis screening: No symptoms or risk factors identified. Fall Risk None identified. Assessment: 23:27 General: Appears in no apparent distress. Behavior is calm, cooperative. Pain: Denies bb pain. Neuro: Level of Consciousness is awake, alert, obeys commands, Oriented to person, place, time, situation. Cardiovascular: No deficits noted. Respiratory: Respiratory effort is even, unlabored, Respiratory pattern is regular. Derm: Skin is intact, Skin is pink, warm \T\ dry. Musculoskeletal: Circulation, motion, and sensation intact. 04/16 00:08 Reassessment: Patient is alert, oriented x 3, equal unlabored respirations, skin bb warm/dry/pink. pt verbalized understanding of and agrees to plan of care discharge instructions given pt ambulated with steady gait to exit. Vital Signs: 04/15 23:22 BP 146 / 75; Pulse 63; Resp 17; Temp 98.1; Pulse Ox 98% ; Weight 108.86 kg; Height 5 tl1 ft. 2 in. (157.48 cm); Pain 0/10; 23:22 Body Mass Index 43.90 (108.86 kg, 157.48 cm) tl1 ED Course: 22:32 Patient arrived in ED. jg7 23:12 Jasbir Meredith PA is PHCP. cp 23:12 Jasbir Coleman MD is Attending Physician. cp 23:24 Triage completed. tl1 23:28 Patient has correct armband on for positive identification. Call light in reach. bb 23:29 Arm band placed on. bb 04/16 00:08 No provider procedures requiring assistance completed. Patient did not have IV access bb during this emergency room visit. Administered Medications: No medications were administered Outcome: 04/15 23:58 Discharge ordered by . cp 04/16 00:09 Discharged to home ambulatory. bb Condition: stable Discharge instructions given to patient, Instructed on discharge instructions, follow up and referral plans. medication usage, Demonstrated understanding of instructions, follow-up care, medications, Prescriptions given X 2. 00:09 Patient left the ED. bb Signatures: Ann Marie Marquez RN RN bb Dionna Manzo RN RN tl1 Jasbir Meredith PA PA cp Gutierrez, Jessica jg7
--- NOTE | 2019-04-16 23:59 | EDPHYS ---
Physician Documentation [facility] Name: Omayra Parra Age: 28 yrs Sex: Female : 1990 Arrival Date: 04/16/2019 Time: 22:32 Bed 11 Private MD: ED Physician Jasbir Coleman HPI: 04/15 23:50 This 28 yrs old Female presents to ER via Ambulatory with complaints of rash. cp 23:50 Onset: The symptoms/episode began/occurred 1 month(s) ago. cp 23:50 The patient's rash thought to be caused by an unknown cause. cp 23:50 The rash is located on the body diffusely. Associated signs and symptoms: Pertinent cp positives: itching, Pertinent negatives: burning sensation, difficulty breathing, fever. Severity of symptoms: in the emergency department the symptoms are unchanged despite home interventions. Treatment given at home: Benadryl. Patient concerned rash may be due to bed bugs. Historical: - Allergies: 23:25 No Known Allergies; tl1 - Home Meds: 23:25 Xanax 2 mg Oral tab as needed [Active]; tl1 - PMHx: 23:25 Anxiety; Migraines; PCOS; Trichiamonis; tl1 - Immunization history:: Adult Immunizations up to date. - Social history:: Smoking status: unknown. ROS: 23:51 Eyes: Negative for injury, pain, redness, and discharge. cp 23:51 Constitutional: Negative for body aches, chills, fever. 23:51 ENT: Negative for drainage from ear(s), ear pain, sore throat, difficulty swallowing, difficulty handling secretions. 23:51 Respiratory: Negative for cough, shortness of breath, wheezing. 23:51 Abdomen/GI: Negative for abdominal pain, nausea, vomiting, and diarrhea. 23:51 Skin: Positive for rash, diffusely. 23:51 All other systems are negative. Exam: 23:55 Constitutional: The patient appears in no acute distress, alert, awake, non-toxic, well cp developed, well nourished. 23:55 Head/Face: Normocephalic, atraumatic. cp 23:55 Eyes: Periorbital structures: appear normal, Conjunctiva: normal, no exudate, no injection, Lids and lashes: appear normal, bilaterally. 23:55 ENT: External ear(s): are unremarkable, Nose: is normal, Mouth: Lips: moist, Oral mucosa: moist, Posterior pharynx: is normal, airway is patent. 23:55 Cardiovascular: Rate: normal. 23:55 Respiratory: the patient does not display signs of respiratory distress, Respirations: normal. 23:55 Skin: rash can be described as erythematous, papular, on the diffusely, worse on extremities. Vital Signs: 23:22 BP 146 / 75; Pulse 63; Resp 17; Temp 98.1; Pulse Ox 98% ; Weight 108.86 kg; Height 5 tl1 ft. 2 in. (157.48 cm); Pain 0/10; 23:22 Body Mass Index 43.90 (108.86 kg, 157.48 cm) tl1 MDM: 23:10 Patient medically screened. [facility] 23:57 Differential diagnosis: impetigo, varicella, allergic reaction, parasite infection, cp scabies. 23:57 Data reviewed: vital signs, nurses notes, and as a result, I will discharge patient. cp Counseling: I had a detailed discussion with the patient and/or guardian regarding: the historical points, exam findings, and any diagnostic results supporting the discharge/admit diagnosis, to return to the emergency department if symptoms worsen or persist or if there are any questions or concerns that arise at home. Administered Medications: No medications were administered Disposition: 04/16 07:34 Co-signature as Attending Physician, Jasbir Coleman MD I agree with the assessment and [facility] plan of care. Disposition: 04/16/19 23:58 Discharged to Home. Impression: Scabies. - Condition is Stable. - Discharge Instructions: Scabies, Adult. - Prescriptions for Vistaril 25 mg Oral capsule - take 2 capsule by ORAL route 4 times per day As needed may take 1-2 tabs every 6 hours as needed for itching; 60 capsule. Elimite 5 % Topical Cream - apply 1 application by TOPICAL route one time apply to entire body except face and Wash after 12 hours. Repeat treatment 2 weeks later; 120 gram. - Medication Reconciliation Form, Thank You Letter, Antibiotic Education, Prescription Opioid Use form. - Follow up: Private Physician; When: 1 week; Reason: Worsening of condition. - Problem is new. - Symptoms are unchanged. Signatures: Jasbir Coleman MD MD cha Ballard, Brenda, RN RN bb Dionna Manzo RN RN tl1 Jasbir Meredith PA PA cp Corrections: (The following items were deleted from the chart) 00:09 04/15 23:58 04/16/2019 23:58 Discharged to Home. Impression: Scabies. Condition is bb Stable. Discharge Instructions: Scabies, Adult. Prescriptions for Vistaril 25 mg Oral capsule - take 2 capsule by ORAL route 4 times per day As needed may take 1-2 tabs every 6 hours as needed for itching; 60 capsule, Elimite 5 % Topical Cream - apply 1 application by TOPICAL route one time apply to entire body except face and Wash after 12 hours. Repeat treatment 2 weeks later; 120 gram. and Forms are Medication Reconciliation Form, Thank You Letter, Antibiotic Education, Prescription Opioid Use. Follow up: Private Physician; When: 1 week; Reason: Worsening of condition. Problem is new. Symptoms are unchanged. cp
[2019-04-17 00:24] VITALS: BP 146/75; TEMP 98.1; O2SAT 98
== END 2019-04-17 00:09 | disposition home or self-care (01) ==
LOC: ER 22:29
DX: B86 Scabies (principal); F41.9 Anxiety disorder, unspecified
CPT/HCPCS: 99282

== ENCOUNTER 2019-04-17 18:35 | Emergency (ER) | payer SELFPAY ==
--- OUTSIDE RECORDS SUMMARY | 2019-04-17 18:38 | XMS REPORT ---
:1990 [facility] Address [address] [place] [address] Dr. Mag[address]on [address] [place] [id number] Care Team Providers Name Role Phone Unavailable Unavailable Unavailable Problems This patient has no known problems. Allergies, Adverse Reactions, Alerts This patient has no known allergies or adverse reactions. Medications This patient has no known medications.
--- NOTE | 2019-04-17 20:55 | ER ---
Nurse's Notes [facility] Name: Omayra Parra Age: 28 yrs Sex: Female : 1990 Arrival Date: 04/17/2019 Time: 18:38 Bed 26 Private MD: Abdullahi Guan E Diagnosis: Cough;Pleurisy Presentation: 04/16 19:14 Chief complaint: Patient states: Cough with chest pain for the past 2 days. States that aj1 she was seen in this ER yesterday for an insect bite but didn't bring up her cough or pain. Denies fever. Reports headaches after coughing spells. Reports shortness of breath after coughing spells. Coronavirus screen: The patient has NOT traveled to a country currently being monitored by the CDC within the last 14 days. Ebola Screen: Patient denies travel to an Ebola-affected area in the 21 days before illness onset. Initial Sepsis Screen: Does the patient meet any 2 criteria? No. Patient's initial sepsis screen is negative. Does the patient have a suspected source of infection? Yes: Productive cough/pneumonia. Risk Assessment: Do you want to hurt yourself or someone else? Patient reports no desire to harm self or others. 19:14 Method Of Arrival: Ambulatory aj 19:14 Acuity: GAYE 3 aj1 Triage Assessment: 19:16 General: Appears in no apparent distress. comfortable, Behavior is calm, cooperative, aj1 appropriate for age. Pain: Complains of pain in chest. Neuro: Level of Consciousness is awake, alert, obeys commands. Cardiovascular: Reports chest pain, Patient's skin is warm and dry. Respiratory: Reports cough that is Airway is patent Respiratory effort is even, unlabored, Respiratory pattern is regular, symmetrical. 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 - Social history:: Smoking status: Patient reports the use of cigarette tobacco products, smokes one-half pack cigarettes per day. Screenin:35 Abuse screen: Denies threats or abuse. Denies injuries from another. Nutritional ls4 screening: No deficits noted. Tuberculosis screening: No symptoms or risk factors identified. Fall Risk None identified. Assessment: 19:00 Reassessment: Patient appears in no apparent distress at this time. Patient and/or ls4 family updated on plan of care and expected duration. Pain level reassessed. Patient is alert, oriented x 3, equal unlabored respirations, skin warm/dry/pink. 20:24 Pain: Denies pain. Pain does not radiate. Pain began pain associated with cough. pt in ls4 no apparent distress. Neuro: No deficits noted. Cardiovascular: No deficits noted. Respiratory: Reports cough that is non-productive, dry. GI: No deficits noted. No signs and/or symptoms were reported involving the gastrointestinal system. : No deficits noted. No signs and/or symptoms were reported regarding the genitourinary system. Derm: No deficits noted. Musculoskeletal: No deficits noted. No signs and/or symptoms reported regarding the musculoskeletal system. Vital Signs: 19:14 BP 137 / 84; Pulse 68; Resp 18; Temp 98.1; Pulse Ox 98% on R/A; Height 5 ft. 2 in. aj1 (157.48 cm) (R); Pain 8/10; 20:00 BP 128 / 74; Pulse 65; Resp 14; Temp 98.0(O); Pulse Ox 99% on R/A; Pain 0/10; ls4 ED Course: 18:38 Patient arrived in ED. ag5 18:38 Abdullahi Guan MD is Private Physician. ag5 19:15 Triage completed. aj1 19:16 Arm band placed on Patient placed in waiting room, Patient notified of wait time. aj1 20:03 [facility]C [facility] la1 20:03 Jasbir Coleman MD is Attending Physician. la1 20:20 Leandra Diggs, SUSAN is Primary Nurse. ls4 20:35 Patient has correct armband on for positive identification. Bed in low position. Call ls4 light in reach. Side rails up X 1. Pulse ox on. NIBP on. 20:35 No provider procedures requiring assistance completed. Patient did not have IV access ls4 during this emergency room visit. Patient maintains SpO2 saturation greater than 95% on room air. 20:46 Chest Pa And Lat (2 Views) XRAY In Process Unspecified. EDMS Administered Medications: 20:15 CANCELLED (Duplicate Order): Tylenol 1000 mg PO once la1 Outcome: 20:54 Discharge ordered by . la1 21:05 Patient left the ED. ls4 21:05 Discharged to home ambulatory. ls4 21:05 Condition: stable 21:05 Discharge instructions given to patient, Instructed on discharge instructions, follow ls4 up and referral plans. medication usage, safety practices, Demonstrated understanding of instructions, follow-up care. Signatures: Dispatcher [employer] EDMS Winnie Lieberman, RN RN aj1 Fredis Johnson, HOT FRAME TENDER-C HOT FRAME TENDER-Cla1 Leandra Diggs RN RN ls4 Agapito Naranjo
--- NOTE | 2019-04-17 20:56 | EDPHYS ---
Physician Documentation [facility] Name: Omayra Parra Age: 28 yrs Sex: Female : 1990 Arrival Date: 04/17/2019 Time: 18:38 Bed 26 Private MD: Abdullahi Guan E ED Physician Jasbir Coleman HPI: 04/16 20:52 This 28 yrs old Female presents to ER via Ambulatory with complaints of Chest la1 Pain, Cough. 20:52 The patient or guardian reports cough, that is intermittent, described as moderate. la1 Onset: The symptoms/episode began/occurred 3 day(s) ago. Severity of symptoms: At their worst the symptoms were mild. Modifying factors: The symptoms are alleviated by nothing, the symptoms are aggravated by nothing. Associated signs and symptoms: Pertinent negatives: fever, sore throat, vomiting. The patient has not experienced similar symptoms in the past. 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 - Social history:: Smoking status: Patient reports the use of cigarette tobacco products, smokes one-half pack cigarettes per day. ROS: 20:52 Constitutional: Negative for fever, chills, and weight loss, Eyes: Negative for injury, la1 pain, redness, and discharge, ENT: Negative for injury, pain, and discharge, Neck: Negative for injury, pain, and swelling, Cardiovascular: Negative for chest pain, palpitations, and edema. 20:52 Abdomen/GI: Negative for abdominal pain, nausea, vomiting, diarrhea, and constipation, Back: Negative for injury and pain, MS/Extremity: Negative for injury and deformity, Skin: Negative for injury, rash, and discoloration. 20:52 Respiratory: Positive for cough, pleurisy. Exam: 20:53 Constitutional: This is a well developed, well nourished patient who is awake, alert, la1 and in no acute distress. Head/Face: Normocephalic, atraumatic. Eyes: Pupils equal round and reactive to light, extra-ocular motions intact. ENT: Nares patent. No nasal discharge, no septal abnormalities noted. Tympanic membranes are normal and external auditory canals are clear. Oropharynx with no redness, swelling, or masses, exudates, or evidence of obstruction, uvula midline. Mucous membranes moist. Neck: Trachea midline, Chest/axilla: Normal chest wall appearance and motion. Nontender with no deformity. No lesions are appreciated. Cardiovascular: Regular rate and rhythm with a normal S1 and S2. Respiratory: Lungs have equal breath sounds bilaterally, clear to auscultation and percussion. Abdomen/GI: Soft, non-tender, with normal bowel sounds. Back: No spinal tenderness. No costovertebral tenderness. Full range of motion. Skin: Warm, dry with normal turgor. Normal color with no rashes, no lesions, and no evidence of cellulitis. MS/ Extremity: Pulses equal, no cyanosis. Neurovascular intact. Full, normal range of motion. Vital Signs: 19:14 BP 137 / 84; Pulse 68; Resp 18; Temp 98.1; Pulse Ox 98% on R/A; Height 5 ft. 2 in. aj1 (157.48 cm) (R); Pain 8/10; 20:00 BP 128 / 74; Pulse 65; Resp 14; Temp 98.0(O); Pulse Ox 99% on R/A; Pain 0/10; ls4 MDM: 20:04 Patient medically screened. ren 20:53 Data reviewed: vital signs, nurses notes, radiologic studies, and as a result, I will la1 discharge patient. Data interpreted: Pulse oximetry: on room air is 98 %. Interpretation: normal. Test interpretation: by ED physician or midlevel provider: plain radiologic studies, no focal consolidation appreciated on CXR, not applicable, none. Counseling: I had a detailed discussion with the patient and/or guardian regarding: the historical points, exam findings, and any diagnostic results supporting the discharge/admit diagnosis, radiology results, the need for outpatient follow up, a family practitioner, to return to the emergency department if symptoms worsen or persist or if there are any questions or concerns that arise at home. Special discussion: Based on the patient's history, exam, and Dx evaluation, there is no indication for emergent intervention or inpatient Tx. It is understood by the patient/guardian that if the Sx's persist or worsen they need to return immediately for re-evaluation. 04/16 20:21 Order name: Chest Pa And Lat (2 Views) XRAY la1 Administered Medications: 20:15 CANCELLED (Duplicate Order): Tylenol 1000 mg PO once la1 Disposition: 04/17 07:31 Co-signature as Attending Physician, Jasbir Coleman MD I agree with the assessment and ren plan of care. Disposition: 04/17/19 20:54 Discharged to Home. Impression: Cough, Pleurisy. - Condition is Stable. - Discharge Instructions: Acute Bronchitis, Adult, Cough, Adult. - Prescriptions for Tessalon Perles 100 mg Oral Capsule - take 1 capsule by ORAL route every 8 hours As needed; 15 capsule. Medrol (Ye) 4 mg Oral Tablets, Dose Pack - take 1 tablet by ORAL route as directed - follow package instructions; 1 packet. - Medication Reconciliation Form, Thank You Letter form. - Follow up: Private Physician; When: 2 - 3 days; Reason: Recheck today's complaints, Re-evaluation by your physician. Follow up: Emergency Department; When: As needed; Reason: Worsening of condition. - Problem is new. - Symptoms have improved. Signatures: Dispatcher [employer] EDVT Winnie Lieberman, RN RN aj1 Jasbir Coleman MD MD cha Attema, Lee, COIN ROLLING MACHINE OPERATOR-C COIN ROLLING MACHINE OPERATOR-Cla1 Leandra Diggs, RN RN ls4 Corrections: (The following items were deleted from the chart) 04/16 20:15 20:13 Tylenol 1000 mg PO once ordered. la1 la1 20:16 20:14 Influenza Screen (A \T\ B)+BA.LAB.BRZ ordered. EDVT EDMS 20:27 20:14 Chest Pa And Lat (2 Views)+RAD.RAD.BRZ ordered. EDVT EDMS 21:05 20:54 04/17/2019 20:54 Discharged to Home. Impression: Cough; Pleurisy. Condition is ls4 Stable. Forms are Medication Reconciliation Form, Thank You Letter, Antibiotic Education, Prescription Opioid Use. Follow up: Private Physician; When: 2 - 3 days; Reason: Recheck today's complaints, Re-evaluation by your physician. Follow up: Emergency Department; When: As needed; Reason: Worsening of condition. Problem is new. Symptoms have improved. la1
[2019-04-17 21:15] VITALS: BP 137/84; TEMP 98.1; O2SAT 98
--- NOTE | 2019-04-18 08:17 | RAD REPORT ---
EXAM DESCRIPTION: RAD - Chest Pa And Lat (2 Views) - 04/17/2019 8:47 pm CLINICAL HISTORY: COUGH, chest pain COMPARISON: Two view chest December 2018 TECHNIQUE: Frontal and lateral views of the chest were obtained. FINDINGS: The lungs are clear. Heart size is normal and central vasculature is within normal limit s. No pleural effusion or pneumothorax seen. No acute bony finding noted. No aortic abnormality. No significant interval change. IMPRESSION: No acute cardiopulmonary process.
== END 2019-04-17 21:05 | disposition home or self-care (01) ==
LOC: ER 18:35
DX: R09.1 Pleurisy (principal); F41.9 Anxiety disorder, unspecified; F17.210 Nicotine dependence, cigarettes, uncomplicated
CPT/HCPCS: 71046; 99284

== ENCOUNTER 2019-05-12 18:22 | Emergency (ER) | payer SELFPAY ==
--- OUTSIDE RECORDS SUMMARY | 2019-05-12 18:24 | XMS REPORT ---
:1990 [facility] Address [address] [place] [address] Dr. Magallon [address] [place] [id number] Care Team Providers Name Role Phone Unavailable Unavailable Unavailable Problems This patient has no known problems. Allergies, Adverse Reactions, Alerts This patient has no known allergies or adverse reactions. Medications This patient has no known medications.
--- NOTE | 2019-05-12 18:55 | EDPHYS ---
Physician Documentation [facility] Name: Omayra Parra Age: 28 yrs Sex: Female : 1990 Arrival Date: 05/12/2019 Time: 18:25 Bed 25 Private MD: WADE Physician Jasbir Coleman HPI: 05/11 19:11 This 28 yrs old Female presents to ER via Ambulatory with complaints of Skin kb Problem. 19:11 The patient's rash thought to be caused by an unknown cause. The rash is located on the kb body diffusely. The rash can be described as erythematous. Onset: The symptoms/episode began/occurred 4 month(s) ago. Associated signs and symptoms: Pertinent positives: itching, Pertinent negatives: fever. Severity of symptoms: At their worst the symptoms were moderate severe in the emergency department the symptoms are unchanged. The patient has not experienced similar symptoms in the past. The patient has been recently seen by a physician:. Pt reports she has had a rash for 4 months and the itching is interfering with her life. States she was diagnosed with scabies and given the cream and pills, but it isn't working. Has used the cream several times without relief. . Historical: - Allergies: 18:34 No Known Allergies; ll1 - PMHx: 18:34 Migraines; PCOS; Anxiety; ll1 - PSHx: 18:34 ; endo lap.; ll1 - Immunization history:: Flu vaccine is up to date. - Social history:: Smoking status: Patient reports the use of cigarette tobacco products, smokes one-half pack cigarettes per day, Patient/guardian denies using alcohol, street drugs. ROS: 19:09 Constitutional: Negative for fever, chills, and weight loss, Cardiovascular: Negative kb for chest pain, palpitations, and edema, Respiratory: Negative for shortness of breath, cough, wheezing, and pleuritic chest pain, Abdomen/GI: Negative for abdominal pain, nausea, vomiting, diarrhea, and constipation, Back: Negative for injury and pain, : Negative for injury, bleeding, discharge, and swelling, MS/Extremity: Negative for injury and deformity, Neuro: Negative for headache, weakness, numbness, tingling, and seizure. 19:09 Skin: Positive for rash, diffusely. Exam: 19:10 Constitutional: This is a well developed, well nourished patient who is awake, alert, kb and in no acute distress. Head/Face: Normocephalic, atraumatic. ENT: Nares patent. No nasal discharge, no septal abnormalities noted. Tympanic membranes are normal and external auditory canals are clear. Oropharynx with no redness, swelling, or masses, exudates, or evidence of obstruction, uvula midline. Mucous membranes moist. Neck: Trachea midline, no thyromegaly or masses palpated, and no cervical lymphadenopathy. Supple, full range of motion without nuchal rigidity, or vertebral point tenderness. No Meningismus. Chest/axilla: Normal chest wall appearance and motion. Nontender with no deformity. No lesions are appreciated. Cardiovascular: Regular rate and rhythm with a normal S1 and S2. No gallops, murmurs, or rubs. Normal PMI, no JVD. No pulse deficits. Respiratory: Lungs have equal breath sounds bilaterally, clear to auscultation and percussion. No rales, rhonchi or wheezes noted. No increased work of breathing, no retractions or nasal flaring. Abdomen/GI: Soft, non-tender, with normal bowel sounds. No distension or tympany. No guarding or rebound. No evidence of tenderness throughout. MS/ Extremity: Pulses equal, no cyanosis. Neurovascular intact. Full, normal range of motion. Neuro: Awake and alert, GCS 15, oriented to person, place, time, and situation. Cranial nerves II-XII grossly intact. Motor strength 5/5 in all extremities. Sensory grossly intact. Cerebellar exam normal. Normal gait. 19:10 Skin: rash a mild rash is noted, and is diffusely located. Vital Signs: 18:30 BP 141 / 85; Pulse 94; Resp 18; Temp 98.5; Pulse Ox 99% ; Height 5 ft. 2 in. (157.48 ll1 cm); Pain 9/10; MDM: 18:37 Patient medically screened. kb 19:10 Data reviewed: vital signs, nurses notes. Data interpreted: Pulse oximetry: on room air kb is 99 %. Interpretation: normal. Counseling: I had a detailed discussion with the patient and/or guardian regarding: the historical points, exam findings, and any diagnostic results supporting the discharge/admit diagnosis, the need for outpatient follow up, a family practitioner, to return to the emergency department if symptoms worsen or persist or if there are any questions or concerns that arise at home. Administered Medications: No medications were administered Disposition: 05/12 07:44 Co-signature as Attending Physician, Jasbir Coleman MD I agree with the assessment and [facility] plan of care. Disposition: 05/12/19 18:54 Discharged to Home. Impression: Scabies. - Condition is Stable. - Discharge Instructions: Scabies, Adult. - Prescriptions for ivermectin 3 mg Oral tablet - take 7 tablet by ORAL route one time x1 dose, may repeat dose in 2 weeks if symptoms persist; 14 tablet. Bactroban 2 % Topical Ointment - Apply to affected area 1 application by TOPICAL route every 12 hours; 15 gram. - Medication Reconciliation Form, Thank You Letter, Antibiotic Education, Prescription Opioid Use form. - Follow up: Emergency Department; When: As needed; Reason: Worsening of condition. Follow up: Private Physician; When: 2 - 3 days; Reason: Recheck today's complaints, Continuance of care, Re-evaluation by your physician. Signatures: Rama Engel, INSPECTOR BALL POINTS-C INSPECTOR BALL POINTS-Jasbir Knapp MD MD cha Calcote, Vanessa RN RN Meera Reynoso RN RN ll1 Corrections: (The following items were deleted from the chart) 05/11 19:13 18:54 05/12/2019 18:54 Discharged to Home. Impression: Scabies. Condition is Stable. vc Forms are Medication Reconciliation Form, Thank You Letter, Antibiotic Education, Prescription Opioid Use. Follow up: Emergency Department; When: As needed; Reason: Worsening of condition. Follow up: Private Physician; When: 2 - 3 days; Reason: Recheck today's complaints, Continuance of care, Re-evaluation by your physician. kb
--- NOTE | 2019-05-12 18:55 | ER ---
Nurse's Notes [facility] Name: Omayra Parra Age: 28 yrs Sex: Female : 1990 Arrival Date: 05/12/2019 Time: 18:25 Bed 25 Private MD: Diagnosis: Scabies Presentation: 05/11 18:30 Chief complaint: Patient states: Skin rash to body for months. Seen here April 141 given scabies medication and itching medication. Nothing has gotten better since. Unable to see surgical supply assistant due to virus. Coronavirus screen: Proceed with normal triage. Patient denies a cough. Patient denies shortness of breath or difficulty breathing. Patient denies measured and/or subjective temperature greater than 100.4F prior to today's visit. Patient denies travel on a cruise ship or to a country the [facility] currently lists as an affected area. Patient denies contact with known and/or suspected case of COVID-19. Ebola Screen: Patient denies travel to an Ebola-affected area in the 21 days before illness onset. Initial Sepsis Screen: Does the patient meet any 2 criteria? No. Patient's initial sepsis screen is negative. Risk Assessment: Do you want to hurt yourself or someone else? Patient reports no desire to harm self or others. Onset of symptoms was March 13, 2019. 18:30 Method Of Arrival: Ambulatory ll1 18:30 Acuity: GAYE 4 ll1 18:45 Initial Sepsis Screen: Does the patient have a suspected source of infection? No. vc Patient's initial sepsis screen is negative. Triage Assessment: 18:45 General: Appears in no apparent distress. Behavior is calm, cooperative, appropriate vc for age. Pain: Denies pain. Historical: - Allergies: 18:34 No Known Allergies; ll1 - PMHx: 18:34 Migraines; PCOS; Anxiety; ll1 - PSHx: 18:34 ; endo lap.; ll1 - Immunization history:: Flu vaccine is up to date. - Social history:: Smoking status: Patient reports the use of cigarette tobacco products, smokes one-half pack cigarettes per day, Patient/guardian denies using alcohol, street drugs. Screenin:45 Abuse screen: Denies threats or abuse. Nutritional screening: No deficits noted. vc Tuberculosis screening: No symptoms or risk factors identified. Fall Risk None identified. Assessment: 18:45 General: Appears in no apparent distress. uncomfortable, Behavior is calm, cooperative, vc appropriate for age. Pain: Denies pain. Neuro: Level of Consciousness is awake, alert, obeys commands, Oriented to person, place, time. Cardiovascular: Patient's skin is warm and dry. Respiratory: Airway is patent Respiratory effort is even, unlabored, Respiratory pattern is regular, symmetrical. GI: No signs and/or symptoms were reported involving the gastrointestinal system. : No signs and/or symptoms were reported regarding the genitourinary system. Derm: Rash noted that is itchy. Vital Signs: 18:30 BP 141 / 85; Pulse 94; Resp 18; Temp 98.5; Pulse Ox 99% ; Height 5 ft. 2 in. (157.48 ll1 cm); Pain 9/10; ED Course: 18:25 Patient arrived in ED. mr 18:30 Meera Mays RN is Primary Nurse. ll1 18:33 Rama Engel FNP-C [facility]. kb 18:33 Jasbir Coleman MD is Attending Physician. kb 18:33 Triage completed. ll1 18:35 Arm band placed on Patient placed in an exam room, on a stretcher. ll1 18:45 Bed in low position. Call light in reach. vc 19:10 No provider procedures requiring assistance completed. Patient did not have IV access vc during this emergency room visit. Administered Medications: No medications were administered Outcome: 18:54 Discharge ordered by MD. kb 19:10 Discharged to home ambulatory. vc 19:10 Condition: good 19:10 Discharge instructions given to patient, Instructed on discharge instructions, follow up and referral plans. medication usage, Demonstrated understanding of instructions, follow-up care, medications, Prescriptions given X 2. 19:13 Patient left the ED. vc Signatures: Rama Engel FNP-C FNP-Ckb Rosa Schmid Jane Guo RN RN vc Meera Mays RN RN ll1
[2019-05-12 19:18] VITALS: BP 141/85; TEMP 98.5; O2SAT 99
== END 2019-05-12 19:13 | disposition home or self-care (01) ==
LOC: ER 18:22
DX: B86 Scabies (principal); F17.210 Nicotine dependence, cigarettes, uncomplicated
CPT/HCPCS: 99282

== ENCOUNTER 2019-06-21 21:33 | Emergency (ER) | payer OTHER, SELFPAY ==
--- OUTSIDE RECORDS SUMMARY | 2019-06-21 21:35 | XMS REPORT ---
:1990 Author Organization [facility] t Address [address] [place] [address] Dr. Mag[address]on [address] [place] [id number] Care Team Providers Name Role Phone Unavailable Unavailable Unavailable Problems This patient has no known problems. Allergies, Adverse Reactions, Alerts This patient has no known allergies or adverse reactions. Medications This patient has no known medications. Procedures This patient has no known procedures. Results This patient has no known results.
[2019-06-21 22:37] LABS: Absolute Lymphocytes (CBC) 2.9 K/uL (0.7-4.9); Basophils % 1.4 % (0-1.3); Hematocrit 37.8 % (36.0-45.0); Lymphocytes % 31.1 % (15.3-44.8); MPV 7.4 fL (7.6-11.3); RBC Red Blood Cell Count 4.56 M/uL (3.86-4.86)
[2019-06-21] MEDS ORDERED: ONDANSETRON 4 MG (ODT) TAB ONE (22:44)
[2019-06-21 22:51] LABS: BUN Blood Urea Nitrogen 14 mg/dL (7-18); Bicarbonate 26 mmol/L (21-32); Glucose Level 87 mg/dL (74-106); Potassium 4.3 mmol/L (3.5-5.1); Sodium Level 143 mmol/L (136-145)
--- NOTE | 2019-06-21 22:53 | EDPHYS ---
Physician Documentation [facility] Name: Omayra Parra Age: 28 yrs Sex: Female : 1990 Arrival Date: 06/21/2019 Time: 21:35 Bed 12 Private MD: WADE Physician Jasbir Coleman HPI: 06/20 22:40 This 28 yrs old Female presents to ER via Ambulatory with complaints of kb SEVERE ITCHING AND NAUSEA. 22:40 The patient's rash thought to be caused by an unknown cause. The rash is located on the kb body diffusely. The rash can be described as erythematous. Onset: The symptoms/episode began/occurred 4 month(s) ago. Associated signs and symptoms: Pertinent positives: itching, Pertinent negatives: burning sensation, difficulty breathing, fever, nausea, Pain swelling of lips, swelling of throat, swelling of tongue, vomiting, wheezing. Severity of symptoms: At their worst the symptoms were moderate in the emergency department the symptoms are unchanged. The patient has not experienced similar symptoms in the past. The patient has not recently seen a physician. Pt states she has been dealing with this rash and itching for 4 months. States she has tried the scabies cream and pills, steroid creams without relief. States she is concerned that an infection is developing in her blood because she has had this for so long. States she now has constant nausea. . 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 - Social history:: Smoking status: Patient/guardian denies using tobacco, but has a distant history of tobacco abuse. ROS: 22:38 Constitutional: Negative for fever, chills, and weight loss, Cardiovascular: Negative kb for chest pain, palpitations, and edema, Respiratory: Negative for shortness of breath, cough, wheezing, and pleuritic chest pain, Abdomen/GI: Negative for abdominal pain, nausea, vomiting, diarrhea, and constipation, MS/Extremity: Negative for injury and deformity, Neuro: Negative for headache, weakness, numbness, tingling, and seizure. 22:38 Skin: Positive for rash, diffusely. Exam: 22:39 Constitutional: This is a well developed, well nourished patient who is awake, alert, kb and in no acute distress. Head/Face: Normocephalic, atraumatic. Chest/axilla: Normal chest wall appearance and motion. Nontender with no deformity. No lesions are appreciated. Cardiovascular: Regular rate and rhythm with a normal S1 and S2. No gallops, murmurs, or rubs. Normal PMI, no JVD. No pulse deficits. Respiratory: Lungs have equal breath sounds bilaterally, clear to auscultation and percussion. No rales, rhonchi or wheezes noted. No increased work of breathing, no retractions or nasal flaring. Abdomen/GI: Soft, non-tender, with normal bowel sounds. No distension or tympany. No guarding or rebound. No evidence of tenderness throughout. MS/ Extremity: Pulses equal, no cyanosis. Neurovascular intact. Full, normal range of motion. Neuro: Awake and alert, GCS 15, oriented to person, place, time, and situation. Cranial nerves II-XII grossly intact. Motor strength 5/5 in all extremities. Sensory grossly intact. Cerebellar exam normal. Normal gait. 22:39 Skin: rash a moderate rash is noted, and is diffusely located, rash resembles insect bites. Vital Signs: 21:55 BP 144 / 80; Pulse 82; Resp 16 S; Temp 98.3(O); Pulse Ox 100% on R/A; Weight 113.4 kg ca1 (R); Height 5 ft. 2 in. (157.48 cm) (R); 21:55 Body Mass Index 45.73 (113.40 kg, 157.48 cm) ca1 MDM: 21:49 Patient medically screened. kb 22:37 Data reviewed: vital signs, nurses notes. Data interpreted: Pulse oximetry: on room air kb is 100 %. Interpretation: normal. 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 05/16 22:05 Order name: CBC with Diff; Complete Time: 22:45 kb 06/20 22:05 Order name: Basic Metabolic Panel; Complete Time: 22:52 kb Administered Medications: 22:39 Drug: Zofran (Ondansetron) 4 mg Route: PO; ls4 Disposition: 06/21 08:04 Co-signature as Attending Physician, Jasbir Coleman MD I agree with the assessment and ren plan of care. Disposition: 06/21/19 22:53 Discharged to Home. Impression: Rash and other nonspecific skin eruption, Nausea. - Condition is Stable. - Discharge Instructions: Rash, [id number]. - Prescriptions for Zofran 4 mg Oral Tablet - take 1 tablet by ORAL route every 6 hours As needed; 20 tablet. - Medication Reconciliation Form, Thank You Letter, Antibiotic Education, Prescription Opioid Use form. - Follow up: Emergency Department; When: As needed; Reason: Worsening of condition. Follow up: Private Physician; When: 2 - 3 days; Reason: Recheck today's complaints, Continuance of care, Re-evaluation by your physician. Signatures: Dispatcher [employer] EDNV Rama Engel, NIKOLAI-C Jasbir Booker MD MD cha Stewart, Lisa, RN RN ls4 Jocelyn Sanchez RN RN ca1 Corrections: (The following items were deleted from the chart) 06/20 22:53 22:53 06/21/2019 22:53 Discharged to Home. Impression: Rash and other nonspecific skin kb eruption. Condition is Stable. Forms are Medication Reconciliation Form, Thank You Letter, Antibiotic Education, Prescription Opioid Use. Follow up: Emergency Department; When: As needed; Reason: Worsening of condition. Follow up: Private Physician; When: 2 - 3 days; Reason: Recheck today's complaints, Continuance of care, Re-evaluation by your physician. kb 23:33 22:53 06/21/2019 22:53 Discharged to Home. Impression: Rash and other nonspecific skin ls4 eruption; Nausea. Condition is Stable. Discharge Instructions: Rash, [id number]. Prescriptions for Zofran 4 mg Oral Tablet - take 1 tablet by ORAL route every 6 hours As needed; 20 tablet. and Forms are Medication Reconciliation Form, Thank You Letter, Antibiotic Education, Prescription Opioid Use. Follow up: Emergency Department; When: As needed; Reason: Worsening of condition. Follow up: Private Physician; When: 2 - 3 days; Reason: Recheck today's complaints, Continuance of care, Re-evaluation by your physician. kb
--- NOTE | 2019-06-21 22:53 | ER ---
Nurse's Notes [facility] Name: Omayra Parra Age: 28 yrs Sex: Female : 1990 Arrival Date: 06/21/2019 Time: 21:35 Bed 12 Private MD: Diagnosis: Rash and other nonspecific skin eruption;Nausea Presentation: 06/20 21:55 Chief complaint: Patient states: They diagnosed me with scabies. I've been applying ca1 creams but the itch is worsening and scabs are bleeding. I got rash on legs, arms, it's getting on my back and abdomen. Reports nausea. Denies vomiting. Coronavirus screen: Proceed with normal triage. Patient denies a cough. Patient denies shortness of breath or difficulty breathing. Patient denies measured and/or subjective temperature greater than 100.4F prior to today's visit. Patient denies travel on a cruise ship or to a country the [facility] currently lists as an affected area. Patient denies contact with known and/or suspected case of COVID-19. Ebola Screen: Patient negative for fever greater than or equal to 101.5 degrees Fahrenheit, and additional compatible Ebola Virus Disease symptoms Patient denies exposure to infectious person. Patient denies travel to an Ebola-affected area in the 21 days before illness onset. No symptoms or risks identified at this time. Initial Sepsis Screen: Does the patient meet any 2 criteria? No. Patient's initial sepsis screen is negative. Does the patient have a suspected source of infection? No. Patient's initial sepsis screen is negative. Risk Assessment: Do you want to hurt yourself or someone else? Patient reports no desire to harm self or others. Onset of symptoms was June 21, 2019. 21:55 Method Of Arrival: Ambulatory ca1 21:55 Acuity: GAYE 4 ca1 Triage Assessment: 22:41 General: Appears unkempt, Behavior is calm, cooperative. 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 - Social history:: Smoking status: Patient/guardian denies using tobacco, but has a distant history of tobacco abuse. Screenin:34 Abuse screen: Denies threats or abuse. Denies injuries from another. Nutritional ls4 screening: No deficits noted. Tuberculosis screening: No symptoms or risk factors identified. Fall Risk None identified. Assessment: 22:39 General: Appears in no apparent distress. Pain: Denies pain. Neuro: No deficits noted. ls4 Cardiovascular: No deficits noted. Respiratory: No deficits noted. GI: Reports nausea. Derm: Rash noted that is itchy, on right arm, left arm, right leg and left leg scabs and open areas, pt reports she believes they are flea bites. Vital Signs: 21:55 BP 144 / 80; Pulse 82; Resp 16 S; Temp 98.3(O); Pulse Ox 100% on R/A; Weight 113.4 kg ca1 (R); Height 5 ft. 2 in. (157.48 cm) (R); 21:55 Body Mass Index 45.73 (113.40 kg, 157.48 cm) ca1 ED Course: 21:35 Patient arrived in ED. fj1 21:45 Rama Engel FNP-C is [facility]. kb 21:45 Jasbir Coleman MD is Attending Physician. kb 21:58 Triage completed. ca1 21:58 Arm band placed on right wrist. Patient placed in an exam room. ca1 22:34 Patient has correct armband on for positive identification. Bed in low position. Call ls4 light in reach. Side rails up X 1. Pulse ox on. NIBP on. 22:34 No provider procedures requiring assistance completed. Patient did not have IV access ls4 during this emergency room visit. Administered Medications: 22:39 Drug: Zofran (Ondansetron) 4 mg Route: PO; ls4 Outcome: 22:53 Discharge ordered by . kb 23:33 Patient left the ED. ls4 Signatures: Rama Engel FNP-C FNP-Ckb Stewart, Lisa, RN RN ls4 Jocelyn Sanchez RN RN ca1 Lm Arcos fj1
[2019-06-22 00:56] VITALS: BP 144/80; TEMP 98.3; O2SAT 100
== END 2019-06-21 23:33 | disposition home or self-care (01) ==
LOC: ER 21:33
DX: R21 Rash and other nonspecific skin eruption (principal); R11.0 Nausea; F41.9 Anxiety disorder, unspecified; Z88.5 Allergy status to narcotic agent
CPT/HCPCS: 36415; 80048; 85025; 99283

== ENCOUNTER 2019-07-01 16:49 | Emergency (ER) | payer OTHER, SELFPAY ==
--- OUTSIDE RECORDS SUMMARY | 2019-07-01 16:53 | XMS REPORT ---
:1990 Author Organization [facility] t Address [address] [place] [address] Dr. Magallon [address] [place] [id number] Care Team Providers Name Role Phone Unavailable Unavailable Unavailable Problems This patient has no known problems. Allergies, Adverse Reactions, Alerts This patient has no known allergies or adverse reactions. Medications This patient has no known medications. Procedures This patient has no known procedures. Results This patient has no known results.
[2019-07-01] MEDS ORDERED: NA CHLORIDE 0.9% 1,000 ML ONE (17:40)
[2019-07-01] MEDS ORDERED: LORazepam 2 MG/ML VIAL ONE (17:40)
[2019-07-01 17:55] LABS: Absolute Lymphocytes (CBC) 2.2 K/uL (0.7-4.9); Basophils % 1.2 % (0-1.3); Hematocrit 38.9 % (36.0-45.0); Lymphocytes % 27.5 % (15.3-44.8); MPV 6.9 fL (7.6-11.3)
[2019-07-01 18:15] LABS: BUN Blood Urea Nitrogen 10 mg/dL (7-18); Bicarbonate 26 mmol/L (21-32); Creatine Phosphokinase 94 U/L (26-192); Glucose Level 89 mg/dL (74-106); Potassium 3.5 mmol/L (3.5-5.1); Sodium Level 141 mmol/L (136-145)
[2019-07-01 18:19] LABS: Urine Bacteria <20 /HPF (<20); Urine Culture Reflex Order NOT NEEDED; Urine RBC <5 /HPF (NONE SEEN)
[2019-07-01 18:20] LABS: Barbiturates NEGATIVE (NEGATIVE); Benzodiazepines POSITIVE (NEGATIVE); Cocaine NEGATIVE (NEGATIVE); METHAMPHETAM NEGATIVE (NEGATIVE); Methadone NEGATIVE (NEGATIVE); Opiates NEGATIVE (NEGATIVE); Phencyclidine NEGATIVE (NEGATIVE); THC Cannibis NEGATIVE (NEGATIVE)
[2019-07-01] MEDS ORDERED: CALCIUM GLUCONATE 1 GM IVPB 1 GM/50 ML BAG IV ONE (19:56)
[2019-07-01 20:46] LABS: Urine Blood 1+ (NEG); Urine Glucose NEGATIVE (NEG); Urine Protein NEGATIVE (NEG); Urine pH 5.5 (5.0-7.0)
[2019-07-01 22:00] VITALS: TEMP 98.4
[2019-07-01 22:06] VITALS: BP 123/65; O2SAT 100
--- NOTE | 2019-07-02 12:52 | EKG ---
Test Date: 2019-07-01 Test Time: 17:40:06 Change Management Consultant: JENI MEASUREMENT RESULTS: Intervals: Rate: 85 MI: 132 QRSD: 86 QT: 394 QTc: 468 [place]: P: 12 MI: 132 QRS: 14 T: -4 INTERPRETIVE STATEMENTS: Sinus rhythm with occasional premature ventricular complexes Nonspecific T wave abnormality Prolonged QT Abnormal ECG Compared to ECG 11/03/2018 15:46:19 Ventricular premature complex(es) now present Prolonged QT interval now present Left ventricular hypertrophy no longer present T-wave abnormality still present Electronically Signed On 07-02-19 12:50:26 CDT by Tapan Grover
--- NOTE | 2019-07-07 13:38 | ER ---
Nurse's Notes [facility] Name: Omayra Parra Age: 28 yrs Sex: Female : 1990 Arrival Date: 07/01/2019 Time: 16:53 Bed 14 Private MD: Diagnosis: Anxiety disorder, unspecified;Hyperventilation;Hypocalcemia Presentation: 06/30 17:00 Chief complaint: Patient states: anxiety was really bad today, takes xanax for anxiety, iw took one at 1 pm, after 30 min had leg numbness and chest pain , hands were going numb, was hyperventilating a little, then fell asleep til 4pm and still had leg pain and weakness. Coronavirus screen: Proceed with normal triage. Patient denies a cough. Patient denies shortness of breath or difficulty breathing. Patient denies measured and/or subjective temperature greater than 100.4F prior to today's visit. Patient denies travel on a cruise ship or to a country the [facility] currently lists as an affected area. Patient denies contact with known and/or suspected case of COVID-19. Ebola Screen: Patient negative for fever greater than or equal to 101.5 degrees Fahrenheit, and additional compatible Ebola Virus Disease symptoms Patient denies exposure to infectious person. Patient denies travel to an Ebola-affected area in the 21 days before illness onset. No symptoms or risks identified at this time. Initial Sepsis Screen: Does the patient meet any 2 criteria? No. Patient's initial sepsis screen is negative. Does the patient have a suspected source of infection? No. Patient's initial sepsis screen is negative. Risk Assessment: Do you want to hurt yourself or someone else? Patient reports no desire to harm self or others. Onset of symptoms was July 01, 2019. 17:00 Method Of Arrival: Wheelchair iw 17:00 Acuity: GAYE 3 iw Triage Assessment: 17:00 General: Appears in no apparent distress. comfortable, obese, Behavior is cooperative, bp appropriate for age, anxious. Pain: Complains of pain in right leg and left leg. EENT: No deficits noted. Neuro: Level of Consciousness is awake, alert, obeys commands, Oriented to person, place, time, situation, Appropriate for age. Cardiovascular: Rhythm is sinus rhythm. Respiratory: No deficits noted. GI: No signs and/or symptoms were reported involving the gastrointestinal system. : No signs and/or symptoms were reported regarding the genitourinary system. Derm: No deficits noted. Musculoskeletal: Circulation, motion, and sensation intact. Range of motion: intact in all extremities. 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 - Social history:: Smoking status: . - Family history:: not pertinent. - Hospitalizations: : No recent hospitalization is reported. Screenin:30 Abuse screen: Denies threats or abuse. Denies injuries from another. Nutritional bp screening: No deficits noted. Tuberculosis screening: No symptoms or risk factors identified. Fall Risk None identified. Assessment: 17:00 General: SEE TRIAGE NOTE. bp 19:00 Reassessment: D/C ON HOLD FOR MED FROM PHARMACY. bp 20:15 Reassessment: Patient appears in no apparent distress at this time. No changes from previously documented assessment. Patient and/or family updated on plan of care and expected duration. Pain level reassessed. Patient is alert, oriented x 3, equal unlabored respirations, skin warm/dry/pink. 21:30 Reassessment: Patient appears in no apparent distress at this time. No changes from previously documented assessment. Patient and/or family updated on plan of care and expected duration. Pain level reassessed. Patient is alert, oriented x 3, equal unlabored respirations, skin warm/dry/pink. Vital Signs: 17:00 BP 129 / 91; Pulse 90; Resp 16; Temp 98.4; Pulse Ox 100% on R/A; iw 18:00 BP 106 / 69; Pulse 75; Resp 16; Pulse Ox 97% ; bp 21:30 BP 123 / 65; Pulse 68; Resp 18; Pulse Ox 100% on R/A; ED Course: 16:53 Patient arrived in ED. as 17:03 Triage completed. iw 17:09 Cristofer Lorenzana MD is Attending Physician. rn 17:15 Paulino Nuñez RN is Primary Nurse. bp 17:30 Patient has correct armband on for positive identification. Bed in low position. Call bp light in reach. Side rails up X2. 17:30 Inserted saline lock: 20 gauge in right antecubital area, using aseptic technique. bp Blood collected. 18:12 Arm band placed on. bp 19:24 Primary Nurse role handed off by Paulino Nuñez, RN [email or web address] 19:24 Isrrael Arreguin, RN is Primary Nurse. [facility] 21:53 No provider procedures requiring assistance completed. IV discontinued, intact, bleeding controlled, No redness/swelling at site. Administered Medications: 17:30 Drug: Ativan 0.5 mg Route: IVP; Site: right antecubital; bp 21:55 Follow up: Response: No adverse reaction; RASS: Alert and Calm (0) 17:30 Drug: NS 0.9% 1000 ml Route: IV; Rate: 1000 ml; Site: right antecubital; bp 21:54 Follow up: Response: No adverse reaction; IV Status: Completed infusion 20:11 Drug: Calcium Gluconate 1 grams Route: IVPB; Infused Over: 60 mins; Site: right antecubital; 21:54 Follow up: Response: No adverse reaction; IV Status: Completed infusion Outcome: 18:44 Discharge ordered by . rn 21:53 Discharged to home ambulatory. 21:53 Condition: stable 21:53 Discharge instructions given to patient, Instructed on discharge instructions, follow up and referral plans. POC Demonstrated understanding of instructions, follow-up care, POC 21:55 Patient left the ED. Signatures: Ruth Gilbert Irene, RN RN iw Nieto, Roman, MD MD rn Bryson, James, RN RN jb4 Habalo, Winsy Paulino Nuñez, RN RN bp
--- NOTE | 2019-07-07 13:39 | EDPHYS ---
Physician Documentation [facility] Name: Omayra Parra Age: 28 yrs Sex: Female : 1990 Arrival Date: 07/01/2019 Time: 16:53 Bed 14 Private MD: ED Physician Cristofer Lorenzana HPI: 06/30 17:38 This 28 yrs old Female presents to ER via Wheelchair with complaints of rn Numbness, Palpitations, Anxiety. 17:39 Reports woke up today with "really bad anxiety", took her xanax, reports continued to rn breath rapidly, legs and arms became numb and heavy, then went to sleep like usually does after her xanax. Woke up several hours later still feeling anxious and tingling in extremities, generalized malaise, and reports muscle aches all over body. no fever or sick contacts. no trauma. No bowel or bladder issues. . Onset: The symptoms/episode began/occurred this morning. Severity of symptoms: At their worst the symptoms were moderate in the emergency department the symptoms have improved. The patient has experienced similar episodes in the past. The patient has not recently seen a physician. 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 - Social history:: Smoking status: . - Family history:: not pertinent. - Hospitalizations: : No recent hospitalization is reported. ROS: 17:39 Constitutional: Negative for fever, chills, and weight loss, Eyes: Negative for injury, rn pain, redness, and discharge, Neck: Negative for injury, pain, and swelling, Cardiovascular: Negative for edema Respiratory: Negative for cough, wheezing, and pleuritic chest pain, Abdomen/GI: Negative for abdominal pain, nausea, vomiting, diarrhea, and constipation, MS/Extremity: Negative for injury and deformity, Skin: Negative for injury, rash, and discoloration, Neuro: Negative for headache, and seizure. Exam: 17:39 Constitutional: This is a well developed, well nourished patient who is awake, alert, rn appears anxious and tearful. Head/Face: Normocephalic, atraumatic. Eyes: Pupils equal round and reactive to light, extra-ocular motions intact. Lids and lashes normal. Conjunctiva and sclera are non-icteric and not injected. Cornea within normal limits. Periorbital areas with no swelling, redness, or edema. ENT: dry MM Cardiovascular: Regular rate and rhythm. No pulse deficits. Respiratory: + mild tachypnea, speaking full sentences but + heavy breathing. Abdomen/GI: soft, non-tender Skin: Warm, dry MS/ Extremity: Pulses equal, no cyanosis. Neurovascular intact. Neuro: Awake and alert, GCS 15, oriented to person, place, time, and situation. Cranial nerves II-XII grossly intact. Motor strength 4/5 in all extremities. Sensory grossly intact. Cerebellar exam normal. Ambulatory to bathroom. Vital Signs: 17:00 BP 129 / 91; Pulse 90; Resp 16; Temp 98.4; Pulse Ox 100% on R/A; iw 18:00 BP 106 / 69; Pulse 75; Resp 16; Pulse Ox 97% ; bp 21:30 BP 123 / 65; Pulse 68; Resp 18; Pulse Ox 100% on R/A; wh MDM: 17:09 Patient medically screened. rn 17:39 ED course: Patient shaky and reports painful thighs and arms with ROM, but when rn speaking and using arms to explain has full ROM without evident pain or discomfort she exhibits on neurological exam. Also, ambulatory without assistance to bathroom when shakes to elevate legs a few inches off bed during neuro exam. Not consistent. . 18:42 Differential Diagnosis anxiety, hyperventilation, electrolyte abnormality. . Data rn reviewed: vital signs, nurses notes, lab test result(s), EKG, and as a result, I will discharge patient. Counseling: I had a detailed discussion with the patient and/or guardian regarding: the historical points, exam findings, and any diagnostic results supporting the discharge/admit diagnosis, lab results, the need for outpatient follow up, to return to the emergency department if symptoms worsen or persist or if there are any questions or concerns that arise at home. Response to treatment: the patient's symptoms have mildly improved after treatment, and as a result, I will discharge patient. 06/30 17:21 Order name: CBC with Diff; Complete Time: 18:03 rn 06/30 17:21 Order name: Basic Metabolic Panel; Complete Time: 18:41 rn 06/30 17:21 Order name: Urine Microscopic Only; Complete Time: 18:41 rn 06/30 17:21 Order name: CK; Complete Time: 18:41 rn 06/30 17:21 Order name: Flu; Complete Time: 18:41 rn 06/30 17:34 Order name: Urine Drug Screen; Complete Time: 18:41 bp 06/30 17:21 Order name: IV Start; Complete Time: 18:12 rn 06/30 17:21 Order name: Urine Test (obtain specimen); Complete Time: 18:13 rn 06/30 17:21 Order name: EKG; Complete Time: 17:21 06/30 18:05 Order name: Urine Dipstick--Ancillary (enter results) 06/30 18:05 Order name: Urine --Ancillary (enter results) 06/30 17:21 Order name: Urine Dipstick-Ancillary (obtain specimen); Complete Time: 18:13 rn 06/30 17:21 Order name: EKG - Nurse/Tech; Complete Time: 17:34 rn Administered Medications: 17:30 Drug: Ativan 0.5 mg Route: IVP; Site: right antecubital; bp 21:55 Follow up: Response: No adverse reaction; RASS: Alert and Calm (0) 17:30 Drug: NS 0.9% 1000 ml Route: IV; Rate: 1000 ml; Site: right antecubital; bp 21:54 Follow up: Response: No adverse reaction; IV Status: Completed infusion 20:11 Drug: Calcium Gluconate 1 grams Route: IVPB; Infused Over: 60 mins; Site: right antecubital; 21:54 Follow up: Response: No adverse reaction; IV Status: Completed infusion Disposition: 07/01/19 18:44 Discharged to Home. Impression: Anxiety disorder, unspecified, Hyperventilation, Hypocalcemia. - Condition is Stable. - Discharge Instructions: Panic Attacks, Hyperventilation, Hypocalcemia, Adult, Generalized Anxiety Disorder. - Medication Reconciliation Form, Thank You Letter, Antibiotic Education, Prescription Opioid Use form. - Follow up: Private Physician; When: As needed; Reason: Recheck today's complaints, Re-evaluation by your physician. - Problem is new. - Symptoms have improved. Signatures: Dispatcher [employer] Dorothy Eid RN RN iw Nieto, Roman, MD MD rn Habalo, Winsy wh Peltier, Brian, RN RN bp Corrections: (The following items were deleted from the chart) 21:55 18:44 07/01/2019 18:44 Discharged to Home. Impression: Anxiety disorder, unspecified; wh Hyperventilation; Hypocalcemia. Condition is Stable. Forms are Medication Reconciliation Form, Thank You Letter, Antibiotic Education, Prescription Opioid Use. Follow up: Private Physician; When: As needed; Reason: Recheck today's complaints, Re-evaluation by your physician. Problem is new. Symptoms have improved. rn
== END 2019-07-01 21:55 | disposition home or self-care (01) ==
LOC: ER 16:49
DX: R06.4 Hyperventilation (principal); E83.51 Hypocalcemia; Z88.5 Allergy status to narcotic agent
CPT/HCPCS: 36415; 80048; 80307; 81003; 81015; 81025; 82550; 85025; 87804; 93005; 96361; 96365; 96366; 96375; 99284; J0610; J7030

== ENCOUNTER 2019-08-20 21:00 | Emergency (ER) | payer OTHER, SELFPAY ==
--- OUTSIDE RECORDS SUMMARY | 2019-08-20 21:12 | XMS REPORT | Continuity of Care Document ---
:1990 Author Organization [facility] t Address [address] [place] [address] Dr. Magallon [address] [place] [id number] Care Team Providers Name Role Phone Unavailable Unavailable Unavailable Problems This patient has no known problems. Allergies, Adverse Reactions, Alerts This patient has no known allergies or adverse reactions. Medications This patient has no known medications. Procedures This patient has no known procedures. Results This patient has no known results.
--- NOTE | 2019-08-20 21:49 | ER ---
Nurse's Notes [facility] Name: Omayra Parra Age: 28 yrs Sex: Female : 1990 Arrival Date: 08/20/2019 Time: 21:06 Bed 16 Private MD: Abdullahi Guan E Diagnosis: Local infection of the skin and subcutaneous tissue, unspecified Presentation: 08/19 21:23 Chief complaint: Patient states: "have these rashes all over for a year now, I have ca1 been here a couple times, they thought it was scabies but it was not. 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 I have new rashes on R foot, in between the 3rd and 4th toe, some on the hands". Coronavirus screen: Proceed with normal triage. Patient denies a cough. Patient denies shortness of breath or difficulty breathing. Patient denies measured and/or subjective temperature greater than 100.4F prior to today's visit. Patient denies travel on a cruise ship or to a country the [facility] currently lists as an affected area. Patient denies contact with known and/or suspected case of COVID-19. Ebola Screen: Patient negative for fever greater than or equal to 101.5 degrees Fahrenheit, and additional compatible Ebola Virus Disease symptoms Patient denies exposure to infectious person. Patient denies travel to an Ebola-affected area in the 21 days before illness onset. No symptoms or risks identified at this time. Initial Sepsis Screen: Does the patient meet any 2 criteria? No. Patient's initial sepsis screen is negative. Does the patient have a suspected source of infection? No. Patient's initial sepsis screen is negative. Risk Assessment: Do you want to hurt yourself or someone else? Patient reports no desire to harm self or others. Onset of symptoms was August 20, 2019. 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 - Social history:: Smoking status: Patient/guardian denies using tobacco, Stopped _ months ago 3. Screenin:50 Abuse screen: Denies threats or abuse. Nutritional screening: No deficits noted. ea Tuberculosis screening: No symptoms or risk factors identified. Fall Risk None identified. Assessment: 21:50 General: Appears in no apparent distress. Behavior is appropriate for age. Pain:. ea Neuro: Level of Consciousness is awake, alert, obeys commands, Oriented to person, place, time, situation. Cardiovascular: Patient's skin is warm and dry. Respiratory: Airway is patent Respiratory effort is even, unlabored, Respiratory pattern is regular, symmetrical. 22:04 Reassessment: Patient and/or family updated on plan of care and expected duration. Pain ea level reassessed. Patient is alert, oriented x 3, equal unlabored respirations, skin warm/dry/pink. Discharge instruction given to patient, verbalized the understanding of instruction. Pt left ED ambulatory tolerating well. Vital Signs: 21:23 BP 120 / 87; Pulse 90; Resp 18 S; Temp 97.8(TE); Pulse Ox 99% on R/A; ca1 21:32 Weight 112.49 kg (R); Height 5 ft. 2 in. (157.48 cm) (R); ca1 21:32 Body Mass Index 45.36 (112.49 kg, 157.48 cm) ca1 ED Course: 21:06 Patient arrived in ED. es 21:06 Abdullahi Guan MD is Private Physician. es 21:07 Rama Engel FNP-C is [facility]. kb 21:07 Jasbir Coleman MD is Attending Physician. kb 21:26 Triage completed. ca1 21:26 Arm band placed on right wrist. ca1 21:38 Greta Wiseman RN is Primary Nurse. ea 21:50 Patient has correct armband on for positive identification. Bed in low position. Call ea light in reach. 22:03 No provider procedures requiring assistance completed. Patient did not have IV access ea during this emergency room visit. Administered Medications: 22:00 Drug: [place] (7.5 mg-325 mg) 1 tabs {Note: rass 0.} Route: PO; ea 22:01 Follow up: Response: Medication administered at discharge. ea 22:00 Drug: Bactrim (160 mg-800 mg (DS) 1 tablet Route: PO; ea 22:01 Follow up: Response: Medication administered at discharge. ea Outcome: 21:48 Discharge ordered by . elder 22:03 Discharged to home ambulatory, with family. zara 22:03 Condition: stable 22:03 Discharge instructions given to patient, Instructed on discharge instructions, follow up and referral plans. medication usage, Demonstrated understanding of instructions, follow-up care, medications, Prescriptions given X 1. 22:05 Patient left the ED. ea Signatures: Rama Engel, GROOVING MACHINE OPERATOR-C GROOVING MACHINE OPERATOR-Therese Clifton Elena RN RN Jocelyn Srivastava RN RN ca1
--- NOTE | 2019-08-20 21:49 | EDPHYS ---
Physician Documentation [facility] Name: Omayra Parra Age: 28 yrs Sex: Female : 1990 Arrival Date: 08/20/2019 Time: 21:06 Bed 16 Private MD: Abdullahi Guan E ED Physician Jasbir Coleman HPI: 08/19 21:51 This 28 yrs old Female presents to ER via Ambulatory with complaints of kb Itching. 21:51 The patient's rash thought to be caused by an unknown cause. The rash is located on the kb body diffusely. The rash can be described as papular. Onset: The symptoms/episode began/occurred 1 year(s) ago. Associated signs and symptoms: Pertinent positives: itching, Pertinent negatives: fever. Severity of symptoms: At their worst the symptoms were moderate in the emergency department the symptoms are unchanged. Treatment given at home: Benadryl. The patient has not experienced similar symptoms in the past. The patient has not recently seen a physician. Pt reports diffuse rash for 1 year with itching. Came in tonight because she is concerned that a couple of spots where the skin has opened are infected. . 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 - Social history:: Smoking status: Patient/guardian denies using tobacco, Stopped _ months ago 3. ROS: 21:51 Constitutional: Negative for fever, chills, and weight loss, Cardiovascular: Negative kb for chest pain, palpitations, and edema, Respiratory: Negative for shortness of breath, cough, wheezing, and pleuritic chest pain, Abdomen/GI: Negative for abdominal pain, nausea, vomiting, diarrhea, and constipation, Back: Negative for injury and pain, MS/Extremity: Negative for injury and deformity, Neuro: Negative for headache, weakness, numbness, tingling, and seizure. 21:51 Skin: Positive for rash, open sore to top of right foot . Exam: 21:51 Constitutional: This is a well developed, well nourished patient who is awake, alert, kb and in no acute distress. Head/Face: Normocephalic, atraumatic. Chest/axilla: Normal chest wall appearance and motion. Nontender with no deformity. No lesions are appreciated. Cardiovascular: Regular rate and rhythm with a normal S1 and S2. No gallops, murmurs, or rubs. Normal PMI, no JVD. No pulse deficits. Respiratory: Lungs have equal breath sounds bilaterally, clear to auscultation and percussion. No rales, rhonchi or wheezes noted. No increased work of breathing, no retractions or nasal flaring. Abdomen/GI: Soft, non-tender, with normal bowel sounds. No distension or tympany. No guarding or rebound. No evidence of tenderness throughout. MS/ Extremity: Pulses equal, no cyanosis. Neurovascular intact. Full, normal range of motion. Neuro: Awake and alert, GCS 15, oriented to person, place, time, and situation. Cranial nerves II-XII grossly intact. Motor strength 5/5 in all extremities. Sensory grossly intact. Cerebellar exam normal. Normal gait. 21:51 Skin: rash a moderate rash is noted, rash can be described as nonspecific, and is diffusely located, open sore to top of right foot, appears to be due to scratching, with surrounding erythema. Vital Signs: 21:23 BP 120 / 87; Pulse 90; Resp 18 S; Temp 97.8(TE); Pulse Ox 99% on R/A; ca1 21:32 Weight 112.49 kg (R); Height 5 ft. 2 in. (157.48 cm) (R); ca1 21:32 Body Mass Index 45.36 (112.49 kg, 157.48 cm) ca1 MDM: 21:19 Patient medically screened. kb 21:50 Data reviewed: vital signs, nurses notes. Data interpreted: Pulse oximetry: on room air kb is 99 %. Interpretation: normal. Counseling: I had a detailed discussion with the patient and/or guardian regarding: the historical points, exam findings, and any diagnostic results supporting the discharge/admit diagnosis, the need for outpatient follow up, a family practitioner, to return to the emergency department if symptoms worsen or persist or if there are any questions or concerns that arise at home. Administered Medications: 22:00 Drug: [place] (7.5 mg-325 mg) 1 tabs {Note: rass 0.} Route: PO; ea 22:01 Follow up: Response: Medication administered at discharge. ea 22:00 Drug: Bactrim (160 mg-800 mg (DS) 1 tablet Route: PO; ea 22:01 Follow up: Response: Medication administered at discharge. Disposition: 08/20 08:42 Co-signature as Attending Physician, Jasbir Coleman MD I agree with the assessment and ren plan of care. Disposition: 08/20/19 21:48 Discharged to Home. Impression: Local infection of the skin and subcutaneous tissue, unspecified. - Condition is Stable. - Discharge Instructions: Wound Infection, [id number]. - Prescriptions for Bactrim DS 800- 160 mg Oral Tablet - take 1 tablet by ORAL route every 12 hours for 10 days; 20 tablet. - Medication Reconciliation Form, Thank You Letter, Antibiotic Education, Prescription Opioid Use form. - Follow up: Emergency Department; When: As needed; Reason: Worsening of condition. Follow up: Private Physician; When: 2 - 3 days; Reason: Recheck today's complaints, Continuance of care, Re-evaluation by your physician. Signatures: Rama Engel, AREA DIRECTOR OF HOME HEALTH SALES-C AREA DIRECTOR OF HOME HEALTH SALES-Jasbir Knapp MD MD cha Antunez, Elena, RN RN ea Acob, Cheryl, RN RN ca1 Corrections: (The following items were deleted from the chart) 08/19 22:05 21:48 08/20/2019 21:48 Discharged to Home. Impression: Local infection of the skin and ea subcutaneous tissue, unspecified. Condition is Stable. Forms are Medication Reconciliation Form, Thank You Letter, Antibiotic Education, Prescription Opioid Use. Follow up: Emergency Department; When: As needed; Reason: Worsening of condition. Follow up: Private Physician; When: 2 - 3 days; Reason: Recheck today's complaints, Continuance of care, Re-evaluation by your physician. kb
[2019-08-20] MEDS ORDERED: HYDROCODONE/APAP 7.5/325 MG TAB ONE (22:00)
[2019-08-20] MEDS ORDERED: SMZ./TMP. 800/160 MG TABLET ONE (22:00)
[2019-08-20 22:20] VITALS: BP 120/87; TEMP 97.8; O2SAT 99
== END 2019-08-20 22:05 | disposition home or self-care (01) ==
LOC: ER 21:00
DX: L08.9 Local infection of the skin and subcutaneous tissue, unspecified (principal); Z88.5 Allergy status to narcotic agent
CPT/HCPCS: 99283

== ENCOUNTER 2019-08-21 20:55 | Emergency (ER) | payer OTHER ==
--- OUTSIDE RECORDS SUMMARY | 2019-08-21 20:57 | XMS REPORT | Continuity of Care Document ---
:1990 Author Organization [facility] t Address [address] [place] [address] Dr. Magallon [address] [place] [id number] Care Team Providers Name Role Phone Unavailable Unavailable Unavailable Problems This patient has no known problems. Allergies, Adverse Reactions, Alerts This patient has no known allergies or adverse reactions. Medications This patient has no known medications. Procedures This patient has no known procedures. Results This patient has no known results.
--- NOTE | 2019-08-21 22:15 | EDPHYS ---
Physician Documentation [facility] Name: Omayra Parra Age: 28 yrs Sex: Female : 1990 Arrival Date: 08/21/2019 Time: 20:57 Bed 20 Private MD: Abdullahi Guan E ED Physician Jasbir Coleman HPI: 08/20 22:09 This 28 yrs old Female presents to ER via Ambulatory with complaints of Pt ren States Feels Like a Knot on my Neck. 22:09 The patient presents with cellulitis of the abdomen and chin and neck. Description: ren erythematous, fluctuant, raised, warm. Onset: The symptoms/episode began/occurred 3 day(s) ago. Possible cause(s): unknown. Associated signs and symptoms: The patient has no apparent associated signs or symptoms. Modifying factors: the symptoms are alleviated by nothing, the symptoms are aggravated by pressure, squeezing the lesion and expressing the contents. Severity of symptoms: At their worst the symptoms were mild, in the emergency department the symptoms are unchanged. The patient has not experienced similar symptoms in the past. 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 - Family history:: not pertinent. - Social history:: Smoking status: Patient/guardian denies using tobacco. ROS: 22:09 Constitutional: Negative for fever, chills, and weight loss, Eyes: Negative for injury, ren pain, redness, and discharge, Neck: Negative for injury, pain, and swelling, Cardiovascular: Negative for chest pain, palpitations, and edema, Respiratory: Negative for shortness of breath, cough, wheezing, and pleuritic chest pain, Abdomen/GI: Negative for abdominal pain, nausea, vomiting, diarrhea, and constipation, Back: Negative for injury and pain, : Negative for injury, bleeding, discharge, and swelling, MS/Extremity: Negative for injury and deformity, Skin: Negative for injury, rash, and discoloration, Neuro: Negative for headache, weakness, numbness, tingling, and seizure, Psych: Negative for depression, anxiety, suicide ideation, homicidal ideation, and hallucinations, Allergy/Immunology: Negative for hives, rash, and allergies, Endocrine: Negative for neck swelling, polydipsia, polyuria, polyphagia, and marked weight changes, Hematologic/Lymphatic: Negative for swollen nodes, abnormal bleeding, and unusual bruising. 22:09 ENT: Positive for small area under chin , vesicles, red, tender. Exam: 22:09 Constitutional: This is a well developed, well nourished patient who is awake, alert, ren and in no acute distress. Head/Face: Normocephalic, atraumatic. Eyes: Pupils equal round and reactive to light, extra-ocular motions intact. Lids and lashes normal. Conjunctiva and sclera are non-icteric and not injected. Cornea within normal limits. Periorbital areas with no swelling, redness, or edema. ENT: Nares patent. No nasal discharge, no septal abnormalities noted. Tympanic membranes are normal and external auditory canals are clear. Oropharynx with no redness, swelling, or masses, exudates, or evidence of obstruction, uvula midline. Mucous membranes moist. Neck: Trachea midline, no thyromegaly or masses palpated, and no cervical lymphadenopathy. Supple, full range of motion without nuchal rigidity, or vertebral point tenderness. No Meningismus. Chest/axilla: Normal chest wall appearance and motion. Nontender with no deformity. No lesions are appreciated. Cardiovascular: Regular rate and rhythm with a normal S1 and S2. No gallops, murmurs, or rubs. Normal PMI, no JVD. No pulse deficits. Respiratory: Lungs have equal breath sounds bilaterally, clear to auscultation and percussion. No rales, rhonchi or wheezes noted. No increased work of breathing, no retractions or nasal flaring. Abdomen/GI: Soft, non-tender, with normal bowel sounds. No distension or tympany. No guarding or rebound. No evidence of tenderness throughout. Back: No spinal tenderness. No costovertebral tenderness. Full range of motion. MS/ Extremity: Pulses equal, no cyanosis. Neurovascular intact. Full, normal range of motion. Neuro: Awake and alert, GCS 15, oriented to person, place, time, and situation. Cranial nerves II-XII grossly intact. Motor strength 5/5 in all extremities. Sensory grossly intact. Cerebellar exam normal. Normal gait. Psych: Awake, alert, with orientation to person, place and time. Behavior, mood, and affect are within normal limits. 22:09 Skin: Appearance: Color: normal in color, Temperature: normal temperature, Moisture: normal moisture, petechiae, not noted, ecchymosis, not noted, abscess, not appreciated, cellulitis, that is minimal, induration, that is mild is noted, injury, rash can be described as erythematous, vesicular. Vital Signs: 21:15 BP 125 / 71; Pulse 75; Resp 16; Temp 98.8(O); Pulse Ox 100% on R/A; Pain 9/10; mt2 22:34 BP 139 / 89; Pulse 75; Resp 16; Temp 98.0(O); Pulse Ox 96% ; Pain 0/10; mt2 MDM: 21:21 Patient medically screened. [facility] 22:13 Data reviewed: vital signs, nurses notes. [facility] 22:15 Differential diagnosis: abscess, allergic reaction, cellulitis, insect bite. Data ren interpreted: quality assurance monitor final: not applicable for this patient encounter. rate is 75 beats/min, Pulse oximetry: on room air is 100 %. Counseling: I had a detailed discussion with the patient and/or guardian regarding: the historical points, exam findings, and any diagnostic results supporting the discharge/admit diagnosis, radiology results, the need for outpatient follow up, for definitive care, a chief mechanical officer. ED course: op clear, no obstruction. 08/20 22:10 Order name: Urine --Ancillary (enter results) tt3 08/20 22:10 Order name: Urine Dipstick--Ancillary (enter results) tt3 08/20 22:08 Order name: Urine Test (obtain specimen); Complete Time: 22:28 ren Administered Medications: 22:21 Drug: Valtrex 1000 mg Route: PO; mt2 22:21 Drug: Bactrim (160 mg-800 mg (DS) 1 tablet Route: PO; mt2 22:21 Drug: Doxycycline 100 mg Route: PO; mt2 22:21 Drug: Bactroban Ointment 2 % 1 application Route: Topical; Site: chin; mt2 Disposition: 08/21/19 22:14 Discharged to Home. Impression: Herpesviral vesicular dermatitis, Cellulitis and acute lymphangitis of face and neck. - Condition is Stable. - Prescriptions for Bactroban 2 % Topical Ointment - Apply to affected area 1 application by TOPICAL route every 12 hours; 15 gram. Doxycycline Hyclate 100 mg Oral Tablet - take 1 tablet by ORAL route every 12 hours; 20 tablet. Valtrex 1 g Oral Tablet - take 1 tablet by ORAL route once daily; 30 tablet. Motrin IB 200 mg Oral Tablet - take 2 tablet by ORAL route every 6 hours As needed as needed with food; 30 tablet. Bactrim DS 800- 160 mg Oral Tablet - take 1 tablet by ORAL route every 12 hours for 10 days; 20 tablet. - Medication Reconciliation Form, Thank You Letter, Antibiotic Education, Prescription Opioid Use form. - Follow up: Abdullahi Guan MD; When: As needed; Reason: Recheck today's complaints, Continuance of care, Re-evaluation by your physician. - Problem is new. - Symptoms have improved. Signatures: Dispatcher [employer] EDJasbir Morley MD MD cha Toscano, Marlene, RN RN mt2 Corrections: (The following items were deleted from the chart) 22:36 22:14 08/21/2019 22:14 Discharged to Home. Impression: Herpesviral vesicular mt2 dermatitis; Cellulitis and acute lymphangitis of face and neck. Condition is Stable. Forms are Medication Reconciliation Form, Thank You Letter, Antibiotic Education, Prescription Opioid Use. Follow up: Abdullahi Guan; When: As needed; Reason: Recheck today's complaints, Continuance of care, Re-evaluation by your physician. Problem is new. Symptoms have improved. ren
--- NOTE | 2019-08-21 22:15 | ER ---
Nurse's Notes [facility] Name: Omayra Parra Age: 28 yrs Sex: Female : 1990 Arrival Date: 08/21/2019 Time: 20:57 Bed 20 Private MD: Abdullahi Guan E Diagnosis: Herpesviral vesicular dermatitis;Cellulitis and acute lymphangitis of face and neck Presentation: 08/20 21:13 Chief complaint: Patient states: PER PT WAS SEEN LAST NIGHT FOR IN FETED TOE. GIVEN A mt2 DOSE OF BACTRIM IN ED. TODAY WITH ITCHING AND RASH ON CHIN AREA. DENIES SOB. AIRWAY PATENT. Coronavirus screen: Patient denies a cough. Patient denies shortness of breath or difficulty breathing. Patient denies measured and/or subjective temperature greater than 100.4F prior to today's visit. Patient denies travel on a cruise ship or to a country the [facility] currently lists as an affected area. Patient denies contact with known and/or suspected case of COVID-19. Proceed with normal triage. 21:13 Method Of Arrival: Ambulatory mt2 21:24 Ebola Screen: No symptoms or risks identified at this time. Initial Sepsis Screen: Does mt2 the patient meet any 2 criteria?. Initial Sepsis Screen: Does the patient have a suspected source of infection? No. Patient's initial sepsis screen is negative. Risk Assessment: Do you want to hurt yourself or someone else? Patient reports no desire to harm self or others. Onset of symptoms was August 21, 2019. 21:24 Acuity: GAYE 4 mt2 Triage Assessment: 21:15 General: Appears in no apparent distress. Behavior is cooperative. Pain: Denies pain. mt2 Complains of pain in face and neck Pain currently is 9 out of 10 on a pain scale. Quality of pain is described as aching, throbbing. EENT: CHIN. Reports pain in chin. 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 - Family history:: not pertinent. - Social history:: Smoking status: Patient/guardian denies using tobacco. Screenin:23 Abuse screen: Denies threats or abuse. Nutritional screening: No deficits noted. mt2 Tuberculosis screening: No symptoms or risk factors identified. Fall Risk None identified. Assessment: 21:00 General: Appears in no apparent distress. mt2 Vital Signs: 21:15 BP 125 / 71; Pulse 75; Resp 16; Temp 98.8(O); Pulse Ox 100% on R/A; Pain 9/10; mt2 22:34 BP 139 / 89; Pulse 75; Resp 16; Temp 98.0(O); Pulse Ox 96% ; Pain 0/10; mt2 ED Course: 20:57 Patient arrived in ED. do 20:58 Abdullahi Guan MD is Private Physician. do 21:12 Krys El, SUSAN is Primary Nurse. mt2 21:21 Jasbir Coleman MD is Attending Physician. ren 21:23 Arm band placed on right wrist. mt2 21:23 Patient has correct armband on for positive identification. Placed in gown. Bed in low mt2 position. Call light in reach. Side rails up X 1. 21:25 Triage completed. mt2 22:13 Abdullahi Guan MD is Referral Physician. ren 22:23 Urine Dipstick--Ancillary (enter results) Sent. mt2 22:23 Urine --Ancillary (enter results) Sent. mt2 22:34 No provider procedures requiring assistance completed. mt2 22:34 Patient did not have IV access during this emergency room visit. mt2 Administered Medications: 22:21 Drug: Valtrex 1000 mg Route: PO; mt2 22:21 Drug: Bactrim (160 mg-800 mg (DS) 1 tablet Route: PO; mt2 22:21 Drug: Doxycycline 100 mg Route: PO; mt2 22:21 Drug: Bactroban Ointment 2 % 1 application Route: Topical; Site: chin; mt2 Outcome: 22:14 Discharge ordered by . [facility] 22:34 Discharged to home ambulatory. mt2 22:34 Condition: good 22:34 Discharge instructions given to patient, Instructed on discharge instructions, follow up and referral plans. no drinking with medication, medication usage, Demonstrated understanding of instructions, follow-up care, medications, Prescriptions given X 4. 22:36 Patient left the ED. mt2 Signatures: Jasbir Coleman MD MD cha Ogletree, Danielle do Toscano, Marlene, SUSAN RN mt2
[2019-08-21] MEDS ORDERED: DOXYCYCLINE 100 MG CAP PO ONE (22:26)
[2019-08-21] MEDS ORDERED: SMZ./TMP. 800/160 MG TABLET ONE (22:26)
[2019-08-21] MEDS ORDERED: MUPIROCIN 2% OINT 22GM TUBE TOP ONE (22:26)
[2019-08-21] MEDS ORDERED: VALACYCLOVIR 500 MG TAB ONE (22:26)
[2019-08-21 22:30] LABS: Urine Blood TRACE (NEG); Urine Glucose NEGATIVE (NEG); Urine Protein NEGATIVE (NEG); Urine Specific Gravity >1.030 (1.005-1.030)
[2019-08-21 23:27] VITALS: BP 139/89; TEMP 98; O2SAT 96
== END 2019-08-21 22:36 | disposition home or self-care (01) ==
LOC: ER 20:55
DX: L03.221 Cellulitis of neck (principal); L03.212 Acute lymphangitis of face; L03.222 Acute lymphangitis of neck; Z88.5 Allergy status to narcotic agent
CPT/HCPCS: 81003; 81025; 99283

== ENCOUNTER 2019-08-23 18:35 | Inpatient (IN) | payer OTHER, SELFPAY ==
--- OUTSIDE RECORDS SUMMARY | 2019-08-23 18:38 | XMS REPORT | Continuity of Care Document ---
:1990 Author Organization [facility] t Address [address] [place] [address] Dr. Mag[address] [place] [id number] Care Team Providers Name Role Phone Unavailable Unavailable Unavailable Problems This patient has no known problems. Allergies, Adverse Reactions, Alerts This patient has no known allergies or adverse reactions. Medications This patient has no known medications. Procedures This patient has no known procedures. Results This patient has no known results.
[2019-08-23 20:22] LABS: Absolute Lymphocytes (CBC) 1.6 K/uL (0.7-4.9); Hematocrit 38.5 % (36.0-45.0); Lymphocytes % 20.6 % (15.3-44.8); MPV 7.2 fL (7.6-11.3); RBC Red Blood Cell Count 4.65 M/uL (3.86-4.86)
[2019-08-23] MEDS ORDERED: ONDANSETRON 4 MG/2 ML VIAL ONE (20:27)
[2019-08-23 20:28] LABS: Protime INR 1.23
[2019-08-23 20:48] LABS: Potassium 3.7 mmol/L (3.5-5.1)
--- NOTE | 2019-08-23 21:27 | RAD REPORT ---
EXAM DESCRIPTION: CT - Soft Tissue Neck W/Contr - 08/23/2019 9:06 pm CLINICAL HISTORY: Neck pain and swelling COMPARISON: None. TECHNIQUE: Computed axial tomography of the neck was obtained. 50 cc Isovue 300 was administered in travenously. Coronal and sagittal reconstruction was performed. All CT scans are performed using dose optimization technique as appropriate and may include automated exposure control or mA/KV adjustment according to patient size. FINDINGS: The pharynx, tongue base, larynx and subglottic trachea appear unremarkable The parotid, submandibular and thyroid glands appear unremarkable. Moderate stranding is present within the subcutaneous fat in the submental region to the right and le ft. That the stranding extends deep to the platysma muscle at the level of the larynx. The platysma m uscle is thickened. Ill-defined fluid is present. A discrete abscess is not present. Mild small reactive lymph nodes are present within the neck bilaterally. 1 Fluid within the sinuses is not noted IMPRESSION: Moderate stranding within the subcutaneous fat in the submental region. The stranding ex tends deep to the platysma muscle with small amount of ill-defined fluid. This is compatible with a c ellulitis. A fluid-filled abscess is not present. No abnormality of the airway noted
[2019-08-23] MEDS ORDERED: CLINDAMYCIN 900MG/D5W 900 MG/50 ML IVPB IV ONE (22:17)
--- NOTE | 2019-08-23 23:52 | EDPHYS ---
Physician Documentation [facility] Name: Omayra Parra Age: 28 yrs Sex: Female : 1990 Arrival Date: 08/23/2019 Time: 18:38 Bed 17 Private MD: ED Physician Pako Parra HPI: 08/22 20:21 This 28 yrs old Female presents to ER via Ambulatory with complaints of Bump mh7 on Chin. 20:22 the patient presents with a swollen area of the chin. Description: erythematous, mh7 swollen. Onset: The symptoms/episode began/occurred 3 day(s) ago. Possible cause(s): unknown. Associated signs and symptoms: Pertinent positives: erythema, nausea, vomiting, Pertinent negatives: discharge, drainage, foreign body sensation, fever, headache, shortness of breath. Modifying factors: the symptoms are alleviated by nothing, the symptoms are aggravated by nothing. Severity of symptoms: At their worst the symptoms were moderate, yesterday, in the emergency department the symptoms have improved, moderately. The patient has been recently seen at the [facility] Emergency Department, this week. 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 - Social history:: Smoking status: Patient denies any tobacco usage or history of. ROS: 20:22 Constitutional: Negative for fever, chills, and weight loss, Eyes: Negative for injury, mh7 pain, redness, and discharge, ENT: Negative for injury, pain, and discharge, Cardiovascular: Negative for chest pain, palpitations, and edema, Respiratory: Negative for shortness of breath, cough, wheezing, and pleuritic chest pain, Back: Negative for injury and pain, : Negative for injury, bleeding, discharge, and swelling, MS/Extremity: Negative for injury and deformity, Neuro: Negative for headache, weakness, numbness, tingling, and seizure, Psych: Negative for depression, anxiety, suicide ideation, homicidal ideation, and hallucinations, Allergy/Immunology: Negative for hives, rash, and allergies, Endocrine: Negative for neck swelling, polydipsia, polyuria, polyphagia, and marked weight changes, Hematologic/Lymphatic: Negative for swollen nodes, abnormal bleeding, and unusual bruising. Exam: 20:22 Constitutional: This is a well developed, well nourished patient who is awake, alert, mh7 and in no acute distress. 20:22 Eyes: Pupils equal round and reactive to light, extra-ocular motions intact. Lids and lashes normal. Conjunctiva and sclera are non-icteric and not injected. Cornea within normal limits. Periorbital areas with no swelling, redness, or edema. 20:22 Chest/axilla: Normal chest wall appearance and motion. Nontender with no deformity. No lesions are appreciated. Cardiovascular: Regular rate and rhythm with a normal S1 and S2. No gallops, murmurs, or rubs. Normal PMI, no JVD. No pulse deficits. Respiratory: Lungs have equal breath sounds bilaterally, clear to auscultation and percussion. No rales, rhonchi or wheezes noted. No increased work of breathing, no retractions or nasal flaring. Abdomen/GI: Soft, non-tender, with normal bowel sounds. No distension or tympany. No guarding or rebound. No evidence of tenderness throughout. Back: No spinal tenderness. No costovertebral tenderness. Full range of motion. 20:22 MS/ Extremity: Pulses equal, no cyanosis. Neurovascular intact. Full, normal range of motion. Neuro: Awake and alert, GCS 15, oriented to person, place, time, and situation. Cranial nerves II-XII grossly intact. Motor strength 5/5 in all extremities. Sensory grossly intact. Cerebellar exam normal. Normal gait. Psych: Awake, alert, with orientation to person, place and time. Behavior, mood, and affect are within normal limits. 20:22 Head/face: Noted is erythema, that is mild, of the submandibular area, swelling, that is mild, of the submandibular area, tenderness, that is mild, of the submandibular area. 20:22 ENT: External ear(s): are unremarkable, Nose: is normal, Mouth: is normal, Posterior pharynx: is normal, airway is patent, Dental exam: normal, Voice: is normal. 20:22 Neck: External neck: Vital Signs: 18:52 BP 127 / 76; Pulse 89; Resp 18; Temp 97.4; Pulse Ox 100% ; Weight 113.85 kg; Height 5 sv ft. 2 in. (157.48 cm); 19:00 BP 122 / 81; Pulse 89; Resp 16; Pulse Ox 100% ; Pain 10/10; mt2 20:00 BP 132 / 60; Pulse 79; Resp 16; Pulse Ox 99% ; Pain 5/10; mt2 21:00 BP 125 / 83; Pulse 79; Resp 16; Pulse Ox 97% ; Pain 5/10; mt2 22:00 BP 124 / 81; Pulse 77; Resp 16; Pulse Ox 97% ; Pain 5/10; mt2 23:00 BP 119 / 66; Pulse 79; Resp 16; Pulse Ox 99% on R/A; Pain 5/10; mt2 08/23 00:00 BP 126 / 71; Pulse 79; Resp 16; Pulse Ox 97% ; Pain 5/10; mt2 01:00 BP 119 / 71; Pulse 74; Resp 16; Pulse Ox 97% on R/A; Pain 0/10; mt2 08/22 18:52 Body Mass Index 45.91 (113.85 kg, 157.48 cm) sv MDM: 08/22 19:55 Patient medically screened. [facility] 23:49 Differential diagnosis: abscess, allergic reaction, cellulitis, insect bite. Data [facility] reviewed: vital signs, nurses notes, lab test result(s), CBC, electrolytes, radiologic studies, CT scan. Data interpreted: Pulse oximetry: on room air is 97 %. Interpretation: normal. Counseling: I had a detailed discussion with the patient and/or guardian regarding: the historical points, exam findings, and any diagnostic results supporting the discharge/admit diagnosis, lab results, radiology results, the need for further work-up and treatment in the hospital. Response to treatment: the patient's symptoms have markedly improved after treatment. 08/22 19:56 Order name: CBC with Diff; Complete Time: 21:09 [facility] 08/22 19:56 Order name: Basic Metabolic Panel; Complete Time: 21:09 [facility] 08/22 19:56 Order name: Protime (+inr); Complete Time: 21:09 [facility] 08/22 19:56 Order name: Ptt, Activated; Complete Time: 21:09 [facility] 08/22 20:04 Order name: Soft Tissue Neck W/Contr; Complete Time: 21:39 EDMS 08/22 21:47 Order name: Blood Culture Adult (2) [facility] Administered Medications: 20:24 Drug: Zofran (Ondansetron) 4 mg Route: IVP; Site: right antecubital; mt2 21:00 Follow up: Response: No adverse reaction; Nausea is decreased mt2 22:30 Drug: Clindamycin 900 mg Route: IVPB; Infused Over: 30 mins; Site: right antecubital; mt2 23:08 Follow up: Response: No adverse reaction; Marked relief of symptoms; IV Status: mt2 Completed infusion Disposition: 08/23/19 23:52 Hospitalization ordered by Benjamin Page for Observation. Preliminary diagnosis is Facial/Neck Cellulitis. - Bed requested for Telemetry/MedSurg (observation). - Status is Observation. mt2 - Condition is Stable. - Problem is an ongoing problem. - Symptoms have improved. Signatures: Dispatcher [employer] EDBonnie Saeed RN RN Jolene Peters RN RN mw Holmes, Maurice, MD MD [facility] Krys El RN RN mt2 Corrections: (The following items were deleted from the chart) 08/23 00:02 08/22 23:52 Hospitalization Ordered by Benjamin Page MD for Observation. Preliminary diagnosis is Facial/Neck Cellulitis. Bed requested for Telemetry/MedSurg (observation). Status is Observation. Condition is Stable. Problem is an ongoing problem. Symptoms have improved. [facility] 08/23 01:13 00:02 08/23/2019 23:52 Hospitalization Ordered by Benjamin Page MD for Observation. mt2 Preliminary diagnosis is Facial/Neck Cellulitis. Bed requested for Telemetry/MedSurg (observation). Status is Observation. Condition is Stable. Problem is an ongoing problem. Symptoms have improved. mw
--- NOTE | 2019-08-23 23:52 | ER ---
Nurse's Notes [facility] Name: Omayra Parra Age: 28 yrs Sex: Female : 1990 Arrival Date: 08/23/2019 Time: 18:38 Bed 17 Private MD: Diagnosis: Facial/Neck Cellulitis Presentation: 08/22 18:50 Chief complaint: Patient states: pt was seen here recently for neck swelling and sv redness and was prescribed abx. Today the swelling has increased and is now having n/v/chills. Coronavirus screen: Patient denies a cough. Patient denies shortness of breath or difficulty breathing. Patient reports a measured and/or subjective temperature greater than 100.4F. Patient denies travel on a cruise ship or to a country the [facility] currently lists as an affected area. Patient denies contact with known and/or suspected case of COVID-19. Patient was placed back in the lobby due to no available rooms at this time. Patient was instructed to always wear their mask and to isolate themselves as much as possible from others in the lobby. Ebola Screen: No symptoms or risks identified at this time. Risk Assessment: Do you want to hurt yourself or someone else? Patient reports no desire to harm self or others. Onset of symptoms was August 23, 2019. 18:50 Method Of Arrival: Ambulatory sv 18:50 Acuity: GAYE 3 sv 18:52 Initial Sepsis Screen: Does the patient meet any 2 criteria? No. Patient's initial sv sepsis screen is negative. Does the patient have a suspected source of infection? No. Patient's initial sepsis screen is negative. Triage Assessment: 18:54 General: Appears in no apparent distress. uncomfortable, Behavior is calm, cooperative, sv appropriate for age. Pain: Complains of pain in neck. Neuro: Level of Consciousness is awake, alert, obeys commands, Oriented to person, place, time, situation, Moves all extremities. Full function. Respiratory: Respiratory effort is even, unlabored. GI: Reports nausea, vomiting. 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 - Social history:: Smoking status: Patient denies any tobacco usage or history of. Screenin:50 Abuse screen: Denies threats or abuse. Nutritional screening: No deficits noted. mt2 Tuberculosis screening: No symptoms or risk factors identified. Fall Risk None identified. Assessment: 19:48 Reassessment: No changes from previously documented assessment. General: Appears mt2 uncomfortable. Pain: Complains of pain in face Pain currently is 8 out of 10 on a pain scale. Quality of pain is described as burning, Pain began 2-3 days ago. Neuro: No deficits noted. Cardiovascular: No deficits noted. Respiratory: No deficits noted. GI: Reports nausea, vomiting. : No deficits noted. EENT: No deficits noted. Derm: Rash noted that is itchy, red, on face and neck. Musculoskeletal: No deficits noted. 21:30 Reassessment: Patient states symptoms have not improved. Pain: Complains of pain in mt2 face. GI: Patient currently denies nausea. 22:30 Reassessment: No changes from previously documented assessment. Patient and/or family mt2 updated on plan of care and expected duration. Pain level reassessed. 23:00 Reassessment: Patient and/or family updated on plan of care and expected duration. Pain mt2 level reassessed. Pain: Complains of pain in scalp. 08/23 00:00 Reassessment: No changes from previously documented assessment. Patient and/or family mt2 updated on plan of care and expected duration. Pain level reassessed. Pain: Complains of pain in face and scalp Pain currently is 5 out of 10 on a pain scale. Vital Signs: 08/22 18:52 BP 127 / 76; Pulse 89; Resp 18; Temp 97.4; Pulse Ox 100% ; Weight 113.85 kg; Height 5 sv ft. 2 in. (157.48 cm); 19:00 BP 122 / 81; Pulse 89; Resp 16; Pulse Ox 100% ; Pain 10/10; mt2 20:00 BP 132 / 60; Pulse 79; Resp 16; Pulse Ox 99% ; Pain 5/10; mt2 21:00 BP 125 / 83; Pulse 79; Resp 16; Pulse Ox 97% ; Pain 5/10; mt2 22:00 BP 124 / 81; Pulse 77; Resp 16; Pulse Ox 97% ; Pain 5/10; mt2 23:00 BP 119 / 66; Pulse 79; Resp 16; Pulse Ox 99% on R/A; Pain 5/10; mt2 08/23 00:00 BP 126 / 71; Pulse 79; Resp 16; Pulse Ox 97% ; Pain 5/10; mt2 01:00 BP 119 / 71; Pulse 74; Resp 16; Pulse Ox 97% on R/A; Pain 0/10; mt2 08/22 18:52 Body Mass Index 45.91 (113.85 kg, 157.48 cm) sv ED Course: 08/22 18:38 Patient arrived in ED. bp1 18:50 Arm band placed on. sv 18:52 Triage completed. sv 19:29 Pako Parra MD is Attending Physician. 7 19:30 Krys El, SUSAN is Primary Nurse. mt2 19:33 Krys El RN is Primary Nurse. mt2 19:50 Patient has correct armband on for positive identification. Bed in low position. Call mt2 light in reach. Side rails up X 1. 20:10 Protime (+inr) Sent. mt2 20:10 Ptt, Activated Sent. mt2 20:10 Basic Metabolic Panel Sent. mt2 20:10 CBC with Diff Sent. mt2 20:10 Inserted saline lock: 20 gauge in right antecubital area, using aseptic technique. mt2 21:07 Soft Tissue Neck W/Contr In Process Unspecified. EDMS 23:09 Blood Culture Adult (2) Sent. mt2 23:51 Benjamin Page MD is Hospitalizing Provider. [facility] 08/23 01:04 No provider procedures requiring assistance completed. Converted IV to saline lock on mt2 right antecubital area. 01:08 Patient admitted, IV remains in place. mt2 Administered Medications: 08/22 20:24 Drug: Zofran (Ondansetron) 4 mg Route: IVP; Site: right antecubital; mt2 21:00 Follow up: Response: No adverse reaction; Nausea is decreased mt2 22:30 Drug: Clindamycin 900 mg Route: IVPB; Infused Over: 30 mins; Site: right antecubital; mt2 23:08 Follow up: Response: No adverse reaction; Marked relief of symptoms; IV Status: mt2 Completed infusion Outcome: 23:52 Decision to Hospitalize by Provider. [facility] 08/23 01:04 Condition: stable mt2 01:04 Admitted to Med/surg accompanied by tech, via wheelchair, room 220, Report called to mt2 mo davis 01:13 Patient left the ED. mt2 Signatures: Dispatcher [employer] Bonnie Horta, SUSAN DAVIS Emilee Zuleta Maurice, MD MD 7 Krys El RN RN mt2 Corrections: (The following items were deleted from the chart) 08/22 18:55 18:50 Chief complaint: Patient states: pt was seen here recently for neck swelling and sv was prescribed abx. Today the swelling has increased and is now having n/v/chills. sv 18:55 18:52 Pulse 89bpm; Resp 18bpm; Pulse Ox 100%; Temp 97.4F; 113.85 kg; Height 5 ft. 2 sv in.; BMI: 45.9; sv
[2019-08-24] MEDS ORDERED: MORPHINE 2 MG/ML SYR IV PRN (00:44)
[2019-08-24] MEDS ORDERED: ACETAMINOPHEN 500 MG TAB PO PRN (00:44)
[2019-08-24] MEDS ORDERED: VANCOMYCIN/NS 1 gm 1 GM/250 ML BAG IVPB SCH (00:45)
[2019-08-24 01:29] VITALS: BMI 44.1
[2019-08-24] MEDS ORDERED: VANCOMYCIN 2 GM in NA CHLORIDE 0.9% 500 ML IVPB SCH (02:00)
[2019-08-24] MEDS ORDERED: AMPICILLIN/SULBACTAM 3GM/VIAL ONE (02:10)
[2019-08-24] MEDS: NA CHLORIDE 0.9% 1,000 ML IV SCH ×2 (02:15→14:20)
[2019-08-24] MEDS: Levofloxacin500mg IV 500 MG/100 ML BAG IV SCH (02:15)
--- NOTE | 2019-08-24 05:33 | P.HP ---
Certification for Inpatient Patient admitted to: Observation With expected LOS: <2 Midnights Patient will require the following post-hospital care: None Practitioner: I am a practitioner with admitting privileges, knowledge of patient current condition, hospital course, and medical plan of care. Services: Services provided to patient in accordance with Admission requirements found in Title 42 Section 412.3 of the Code of Federal Regulations Patient History Date of Service: 08/24/19 Reason for admission: Submental cellulitis History of Present Illness: Patient is a 28-year-old female who came into the ER couple of days ago with cellulitis around the chin and neck area. There was a small pimple there that turned into a cellulitis infection. Patient was started on IV antibiotic therapy. Patient has been to the ER on 2 different occasions and patient was sent home. Patient was on oral back from with no improvement. Patient had a CT scan in the emergency room that showed moderate amount of inflammation that extended along the platysma. Patient is having severe pain. Patient has reactive lymph nodes seen as well in the anterior cervical region. The degree of infection is worrisome. At this time, patient be admitted for hospitalization. Will start her off as observation and if she improves quickly possible discharge home tomorrow. If she does not improve quickly then we may need to change her to an inpatient hospitalization. Allergies morphine Allergy (Verified 08/24/19 23:20) light headedness Home Medications: ALPRAZolam [Xanax] 1 mg PO BIDP PRN 05/10/15 - Past Medical/Surgical History Has patient received pneumonia vaccine in the past: No Diabetic: No -: Skin allergy -: Anxiety -: Depression -: Gastroesophageal reflux disease -: -: Lap adhesiolysis ovary - Family History Father Medical History: Hypertension, Diabetes, Stroke, Cancer Notes: Spine Mother Medical History: Heart disease, Cancer Notes: stomach - Social History Smoking Status: Former smoker Alcohol use: Yes CD- Drugs: No Caffeine use: Yes Place of Residence: Home Review of Systems 10-point ROS is otherwise unremarkable Physical Examination - Vital Signs Temperature: 97.4 F Blood Pressure: 119/71 Pulse: 74 Respirations: 16 Pulse Ox (%): 95 - Physical Exam General: Alert, In no apparent distress, Oriented x3 HEENT: Atraumatic, PERRLA, Mucous membr. moist/pink, Other (Cellulitis of the chin), EOMI, Sclerae nonicteric Neck: Supple, 2+ carotid pulse no bruit, Without JVD or thyroid abnormality, LAD Respiratory: Clear to auscultation bilaterally, Normal air movement Cardiovascular: Regular rate/rhythm, Normal S1 S2 Gastrointestinal: Normal bowel sounds, Soft and benign, Non-distended, No tenderness Musculoskeletal: No clubbing, No swelling, No tenderness Integumentary: Tenderness/swelling, Erythema, Warmth, Other (Submental region; cellulitis infection) Neurological: Normal gait, Normal speech, Normal strength at 5/5 x4 extr, Normal tone, Sensation intact, Cranial nerves 3-12 intact, Normal affect Lymphatics: No axilla or inguinal lymphadenopathy - Studies Laboratory Data (last 24 hrs) 08/23/19 20:00: PT 14.4 H, INR 1.23, APTT 32.7 08/23/19 20:00: Sodium 141, Potassium 3.7, BUN 10, Creatinine 0.80, Glucose 81 08/23/19 20:00: WBC 7.7, Hgb 13.2, Hct 38.5, Plt Count 319 Assessment & Plan - Problems (Diagnosis) (1) Cellulitis of submental space Current Visit: Yes Status: Acute - Plan 1. Continue with IV antibiotic 2. Continue with local wound care 3. Monitor labs closely 4. Gentle IV hydration 5. Monitor CBC 6. Strict blood sugar monitoring 7. Pain control 8. GI and DVT prophylaxis Discharge Plan: Home Plan to discharge in: Greater than 2 days - Advance Directives Does patient have a Living Will: No Does patient have a Durable POA for Healthcare: No - Code Status/Comfort Care Code Status Assessed: Yes Code Status: Full Code Critical Care: No Time Spent Managing PTS Care (In Minutes): 45
[2019-08-24] MEDS: AMPICILLIN/SULBACT 3 GM in NA CHLORIDE 0.9% 100 ML IVPB SCH ×4 (06:29→23:11)
[2019-08-24] MEDS: HYDROMORPHONE HCL 0.5 MG/0.5 ML INJ IV PRN ×4 (08:46→20:48)
[2019-08-24] MEDS: VANCOMYCIN 2 GM in NA CHLORIDE 0.9% 500 ML IVPB SCH ×2 (08:51→20:48)
[2019-08-24] MEDS: ACYCLOVIR INJ 400 MG in NA CHLORIDE 0.9% 100 ML IVPB SCH ×2 (11:09→16:39)
[2019-08-24] MEDS: ONDANSETRON 4 MG/2 ML VIAL IV PRN ×2 (16:45→20:48)
[2019-08-24] MEDS ORDERED: LORazepam 2 MG/ML VIAL IV ONE (23:21)
--- NOTE | 2019-08-25 01:10 | P.PN ---
Subjective Date of Service: 08/25/19 Patient still having a significant amount of pain but overall feeling much better. Will reassess later today, and possibly go home this afternoon. Review of Systems 10-point ROS is otherwise unremarkable Physical Examination - Vital Signs Temperature: 97.4 F Blood Pressure: 119/71 Pulse: 74 Respirations: 16 Pulse Ox (%): 95 - Physical Exam General: Alert, In no apparent distress, Oriented x3 Neck: LAD Respiratory: Clear to auscultation bilaterally, Normal air movement Cardiovascular: Regular rate/rhythm, Normal S1 S2 Gastrointestinal: Normal bowel sounds, Soft and benign, Non-distended, No tenderness Musculoskeletal: No tenderness Integumentary: Tenderness/swelling, Erythema, Warmth - Studies Medications List Reviewed: Yes Assessment & Plan - Problems (Diagnosis) (1) Cellulitis of submental space Current Visit: Yes Status: Acute - Plan 1. Continue with IV antibiotic 2. Continue with local wound care 3. Monitor labs closely 4. Gentle IV hydration 5. Monitor CBC 6. Strict blood sugar monitoring 7. Pain control 8. GI and DVT prophylaxis - Advance Directives Does patient have a Living Will: No Does patient have a Durable POA for Healthcare: No - Code Status/Comfort Care Code Status: Full Code
[2019-08-25] MEDS: Levofloxacin500mg IV 500 MG/100 ML BAG IV SCH (01:11)
[2019-08-25] MEDS: ACYCLOVIR INJ 400 MG in NA CHLORIDE 0.9% 100 ML IVPB SCH ×2 (01:45→10:37)
[2019-08-25] MEDS: NA CHLORIDE 0.9% 1,000 ML IV SCH ×2 (01:50→17:21)
[2019-08-25 03:44] VITALS: O2SAT 98
[2019-08-25] MEDS: AMPICILLIN/SULBACT 3 GM in NA CHLORIDE 0.9% 100 ML IVPB SCH ×4 (03:55→23:09)
[2019-08-25] MEDS: ONDANSETRON 4 MG/2 ML VIAL IV PRN ×3 (05:13→17:23)
[2019-08-25] MEDS ORDERED: HYDROCORTISONE SUC 100 MG INJ IV SCH (06:00)
[2019-08-25 06:14] LABS: Absolute Lymphocytes (CBC) 1.7 K/uL (0.7-4.9); Basophils % 0.5 % (0-1.3); Hematocrit 34.8 % (36.0-45.0); Lymphocytes % 24.1 % (15.3-44.8)
[2019-08-25 06:25] LABS: BUN Blood Urea Nitrogen 7 mg/dL (7-18); Bicarbonate 28 mmol/L (21-32); Glucose Level 102 mg/dL (74-106); Magnesium 2.1 mg/dL (1.8-2.4); Phosphorus 2.8 mg/dL (2.5-4.9); Potassium 3.8 mmol/L (3.5-5.1); Sodium Level 142 mmol/L (136-145)
[2019-08-25] MEDS: VANCOMYCIN 2 GM in NA CHLORIDE 0.9% 500 ML IVPB SCH ×2 (08:08→20:54)
[2019-08-25] MEDS: HYDROMORPHONE HCL 0.5 MG/0.5 ML INJ IV PRN ×2 (10:37→17:23)
[2019-08-25] MEDS ORDERED: ZOLPIDEM TARTRATE 5 MG TABLET PO PRN (21:00)
[2019-08-26] MEDS: AMPICILLIN/SULBACT 3 GM in NA CHLORIDE 0.9% 100 ML IVPB SCH ×2 (03:08→11:04)
[2019-08-26] MEDS: NA CHLORIDE 0.9% 1,000 ML IV SCH (06:20)
[2019-08-26] MEDS: VANCOMYCIN 2 GM in NA CHLORIDE 0.9% 500 ML IVPB SCH (09:14)
--- NOTE | 2019-08-26 11:34 | P.DS ---
Admission Date: 08/24/19 Discharge Date: 08/26/19 Disposition: ROUTINE DISCHARGE Discharge Condition: GOOD Reason for Admission: Submental cellulitis Brief History of Present Illness: 28-year-old female who came into the ER couple of days ago with cellulitis around the chin and neck area. There was a small pimple there that turned into a cellulitis infection. Patient was started on IV antibiotic therapy. Patient has been to the ER on 2 different occasions and patient was sent home. Patient was on oral back from with no improvement. Patient had a CT scan in the emergency room that showed moderate amount of inflammation that extended along the platysma. Patient is having severe pain. Patient has reactive lymph nodes seen as well in the anterior cervical region. The degree of infection is worrisome. At this time, patient be admitted for hospitalization. Will start her off as observation and if she improves quickly possible discharge home tomorrow. If she does not improve quickly then we may need to change her to an inpatient hospitalization. Hospital Course: The patient was admitted and was monitor under telemetry. Was started on IV antibiotics along with IV pain medication. CT of the head and neck was done and did not show any abscesses. She responded well to the treatment and the swelling is getting better. Wanted go home and is being discharged home today in a stable condition with advice to follow up with PCP in 1 week Vital Signs/Physical Exam: Temp Pulse Resp BP Pulse Ox 97.6 F 53 18 127/71 98 08/26/19 08:00 08/26/19 08:00 08/26/19 08:00 08/26/19 08:00 08/26/19 08:00 General: Alert, In no apparent distress HEENT: Atraumatic, Normocephalic Neck: Supple Respiratory: Clear to auscultation bilaterally Cardiovascular: Normal pulses, Regular rate/rhythm Capillary refill: <2 Seconds Gastrointestinal: Soft and benign, W/out hepatosplenomegaly Musculoskeletal: No clubbing, No swelling Integumentary: No rashes Neurological: Normal speech, Normal strength at 5/5 x4 extr Lymphatics: No axilla or inguinal lymphadenopathy Laboratory Data at Discharge: WBC 7.1 K/uL (4.3-10.9) 08/25/19 05:49 Hgb 12.1 g/dL (12.0-15.0) 08/25/19 05:49 Hct 34.8 % (36.0-45.0) L 08/25/19 05:49 Plt Count 280 K/uL (152-406) 08/25/19 05:49 PT 14.4 SECONDS (9.5-12.5) H 08/23/19 20:00 INR 1.23 08/23/19 20:00 APTT 32.7 SECONDS (24.3-36.9) 08/23/19 20:00 Sodium 142 mmol/L (136-145) 08/25/19 05:49 Potassium 3.8 mmol/L (3.5-5.1) 08/25/19 05:49 BUN 7 mg/dL (7-18) 08/25/19 05:49 Creatinine 0.63 mg/dL (0.55-1.3) 08/25/19 05:49 Glucose 102 mg/dL (74-106) 08/25/19 05:49 Phosphorus 2.8 mg/dL (2.5-4.9) 08/25/19 05:49 Magnesium 2.1 mg/dL (1.8-2.4) 08/25/19 05:49 Home Medications: ALPRAZolam [Xanax] 1 mg PO BIDP PRN 05/10/15 Doxycycline Monohydrate 100 mg PO BID #14 tablet 08/26/19 Hydrocodone 10/APAP 325 [Larose 10/325] 1 tab PO Q6H PRN #10 tab 08/26/19 Ibuprofen [Motrin] 400 mg PO TID #15 tab 08/26/19 levoFLOXacin [Levofloxacin] 500 mg PO DAILY #7 tablet 08/26/19 New Medications: Doxycycline Monohydrate 100 mg PO BID #14 tablet levoFLOXacin [Levofloxacin] 500 mg PO DAILY #7 tablet Ibuprofen [Motrin] 400 mg PO TID #15 tab Hydrocodone 10/APAP 325 [Larose 10/325] 1 tab PO Q6H PRN #10 tab PRN Reason: Pain Patient Discharge Instructions: OK TO DC IV AND DC HOME. FOLLOW-UP WITH PRIMARY CARE PROVIDER IN 1-2 WEEKS. FOLLOW-UP WITH CARDIOLOGY IN 1-2 WEEKS. RETURN TO THE ER IF. CALL or TEXT DR. MICHAUD AT [phone] IF ANY QUESTIONS REGARDING HOSPITAL STAY. PLEASE CALL THE FLOOR AT [phone] IF ANY MEDICATION OR NURSING QUESTIONS. Time spent managing pt's care (in minutes): 45
[2019-08-26 14:47] VITALS: BP 140/82; TEMP 98.2
== END 2019-08-26 14:40 | disposition home or self-care (01) | DRG 603 ==
LOC: ER 18:35 → 2ND 08-24 00:33 → OBSVTOIN 08-24 15:31
PROVIDERS: ADMIT Family Medicine; ATTEND Family Medicine
DX: L03.221 Cellulitis of neck (principal); K21.9 Gastro-esophageal reflux disease without esophagitis; Z88.5 Allergy status to narcotic agent; Z79.899 Other long term (current) drug therapy; Z87.891 Personal history of nicotine dependence; Z79.891 Long term (current) use of opiate analgesic
CPT/HCPCS: 36415; 70491; 80048; 80202; 83735; 84100; 84145; 85025; 85610; 85730; 87040; 87205; 96365; 96375; 99285; G0378; J0133; J0295; J1170; J1720; J2405; J3370; J7030; J7040; Q9967; U0002

== ENCOUNTER 2019-12-01 14:59 | Emergency (ER) | payer SELFPAY ==
--- OUTSIDE RECORDS SUMMARY | 2019-12-01 15:14 | XMS REPORT | Continuity of Care Document ---
:1990 Author Organization [facility] t Address [address] [place] [address] Dr. Magallon [address] [place] [id number] Care Team Providers Name Role Phone Unavailable Unavailable Unavailable Problems This patient has no known problems. Allergies, Adverse Reactions, Alerts This patient has no known allergies or adverse reactions. Medications This patient has no known medications. Procedures This patient has no known procedures. Results This patient has no known results.
--- NOTE | 2019-12-01 16:11 | ER ---
Nurse's Notes [facility] Name: Omayra Parra Age: 29 yrs Sex: Female : 1990 Arrival Date: 12/01/2019 Time: 15:03 Bed Waiting Private MD: Diagnosis: ED Course: 11/30 15:03 Patient arrived in ED. ag5 16:10 Patient's name was called from ER lobby. No response. Unable to locate patient. Will ca1 disposition as left without being seen by a provider. Administered Medications: No medications were administered Outcome: 16:11 Patient left the ED. ca1 Signatures: Jocelyn Sanchez RN RN ca1 Agapito Naranjo ag5
== END 2019-12-01 16:11 | disposition left against medical advice (07) ==
LOC: ER 14:59
DX: Z02.9 Encounter for administrative examinations, unspecified (principal)

== ENCOUNTER 2019-12-01 16:31 | Emergency (ER) | payer SELFPAY ==
--- OUTSIDE RECORDS SUMMARY | 2019-12-01 16:32 | XMS REPORT | Continuity of Care Document ---
:1990 Author Organization [facility] t Address [address] [place] [address] Dr. Magallon [address] [place] [address] Care Team Providers Name Role Phone Unavailable Unavailable Unavailable Problems This patient has no known problems. Allergies, Adverse Reactions, Alerts This patient has no known allergies or adverse reactions. Medications This patient has no known medications. Procedures This patient has no known procedures. Results This patient has no known results.
--- NOTE | 2019-12-01 18:04 | ER ---
Nurse's Notes [facility] Name: Omayra Parra Age: 29 yrs Sex: Female : 1990 Arrival Date: 12/01/2019 Time: 16:32 Bed Waiting Private MD: Diagnosis: Presentation: 11/30 17:29 Chief complaint: Patient states: for a few months, I have been having this R foot pain ca1 on the R side. It's bruised, it's s swollen. Hurts to put pressure on it, hurts to spread my toes. Has gotten worse in the past few days. Denies injury. Coronavirus screen: Client denies travel out of the [place] in the last 14 days. At this time, the client does not indicate any symptoms associated with coronavirus-19. Ebola Screen: Patient negative for fever greater than or equal to 101.5 degrees Fahrenheit, and additional compatible Ebola Virus Disease symptoms Patient denies exposure to infectious person. Patient denies travel to an Ebola-affected area in the 21 days before illness onset. No symptoms or risks identified at this time. Initial Sepsis Screen: Does the patient meet any 2 criteria? No. Patient's initial sepsis screen is negative. Does the patient have a suspected source of infection? No. Patient's initial sepsis screen is negative. Risk Assessment: Do you want to hurt yourself or someone else? Patient reports no desire to harm self or others. Onset of symptoms was December 01, 2019. 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 - Social history:: Smoking status: Patient/guardian denies using tobacco, the patient reports quitting approximately 1 years ago. Assessment: 18:02 Reassessment: Pt left twice today. States, "earlier I got to pear picker my kids from ca1 school. Right now, my called and there is a situation at home. I will back back tomorrow morning at 8pm after I drop my kids off school". Vital Signs: 17:29 BP 129 / 85; Pulse 78; Resp 15 S; Temp 97.2(TE); Pulse Ox 100% on R/A; Weight 115.67 kg ca1 (R); Height 5 ft. 2 in. (157.48 cm); Pain 5/10; 17:29 Body Mass Index 46.64 (115.67 kg, 157.48 cm) ca1 ED Course: 16:32 Patient arrived in ED. as 17:33 Triage completed. ca1 17:34 Arm band placed on right wrist. ca1 Administered Medications: No medications were administered Outcome: 18:04 Patient left the ED. ca1 Signatures: Ruth Gilbert Cheryl, RN RN ca1
[2019-12-01 18:18] VITALS: BP 129/85; TEMP 97.2; O2SAT 100
== END 2019-12-01 18:04 | disposition left against medical advice (07) ==
LOC: ER 16:31
DX: Z53.21 Procedure and treatment not carried out due to patient leaving prior to being seen by health care provider (principal)
CPT/HCPCS: 99281

== ENCOUNTER 2019-12-02 08:18 | Emergency (ER) | payer SELFPAY ==
--- OUTSIDE RECORDS SUMMARY | 2019-12-02 08:19 | XMS REPORT | Continuity of Care Document ---
:1990 Author Organization [facility] t Address [address] [place] [address] Dr. Magallon [address] [place] [address] Care Team Providers Name Role Phone Unavailable Unavailable Unavailable Problems This patient has no known problems. Allergies, Adverse Reactions, Alerts This patient has no known allergies or adverse reactions. Medications This patient has no known medications. Procedures This patient has no known procedures. Results This patient has no known results.
--- NOTE | 2019-12-02 08:54 | EDPHYS ---
Physician Documentation [facility] Name: Omayra Parra Age: 29 yrs Sex: Female : 1990 Arrival Date: 12/02/2019 Time: 08:18 Bed 19 Private MD: ED Physician Jasbir Coleman HPI: 12/01 08:47 This 29 yrs old Female presents to ER via Ambulatory with complaints of Foot ren Pain. 08:47 The patient presents with decreased range of motion, pain, that is acute. The ren complaints affect the right foot, dorsum of right foot. Context: The problem was sustained at an unknown location, resulted from an unknown cause, Mechanism of Injury: Unknown. Onset: The symptoms/episode began/occurred 3 week(s) ago. Modifying factors: The symptoms are alleviated by elevation of extremity, ice packs. Associated signs and symptoms: The patient has no apparent associated signs or symptoms. Severity of symptoms: At their worst the symptoms were mild, moderate, in the emergency department the symptoms have improved, mildly. The patient has experienced similar episodes in the past, a few times. 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 - Social history:: Smoking status: Patient denies any tobacco usage or history of. Patient/guardian denies using tobacco, the patient reports quitting approximately 1 years ago. - Family history:: not pertinent. ROS: 08:47 Constitutional: Negative for fever, chills, and weight loss, Eyes: Negative for injury, ren pain, redness, and discharge, ENT: Negative for injury, pain, and discharge, Neck: Negative for injury, pain, and swelling, Cardiovascular: Negative for chest pain, palpitations, and edema, Respiratory: Negative for shortness of breath, cough, wheezing, and pleuritic chest pain, Abdomen/GI: Negative for abdominal pain, nausea, vomiting, diarrhea, and constipation, Back: Negative for injury and pain, : Negative for injury, bleeding, discharge, and swelling, Skin: Negative for injury, rash, and discoloration, Neuro: Negative for headache, weakness, numbness, tingling, and seizure, Psych: Negative for depression, anxiety, suicide ideation, homicidal ideation, and hallucinations, Allergy/Immunology: Negative for hives, rash, and allergies, Endocrine: Negative for neck swelling, polydipsia, polyuria, polyphagia, and marked weight changes, Hematologic/Lymphatic: Negative for swollen nodes, abnormal bleeding, and unusual bruising. 08:47 MS/extremity: Positive for decreased range of motion, pain, tenderness, of the dorsum of right foot. Exam: 08:47 Constitutional: This is a well developed, well nourished patient who is awake, alert, ren and in no acute distress. Head/Face: Normocephalic, atraumatic. Eyes: Pupils equal round and reactive to light, extra-ocular motions intact. Lids and lashes normal. Conjunctiva and sclera are non-icteric and not injected. Cornea within normal limits. Periorbital areas with no swelling, redness, or edema. ENT: Nares patent. No nasal discharge, no septal abnormalities noted. Tympanic membranes are normal and external auditory canals are clear. Oropharynx with no redness, swelling, or masses, exudates, or evidence of obstruction, uvula midline. Mucous membranes moist. Neck: Trachea midline, no thyromegaly or masses palpated, and no cervical lymphadenopathy. Supple, full range of motion without nuchal rigidity, or vertebral point tenderness. No Meningismus. Chest/axilla: Normal chest wall appearance and motion. Nontender with no deformity. No lesions are appreciated. Cardiovascular: Regular rate and rhythm with a normal S1 and S2. No gallops, murmurs, or rubs. Normal PMI, no JVD. No pulse deficits. Respiratory: Lungs have equal breath sounds bilaterally, clear to auscultation and percussion. No rales, rhonchi or wheezes noted. No increased work of breathing, no retractions or nasal flaring. Abdomen/GI: Soft, non-tender, with normal bowel sounds. No distension or tympany. No guarding or rebound. No evidence of tenderness throughout. Back: No spinal tenderness. No costovertebral tenderness. Full range of motion. Skin: Warm, dry with normal turgor. Normal color with no rashes, no lesions, and no evidence of cellulitis. Neuro: Awake and alert, GCS 15, oriented to person, place, time, and situation. Cranial nerves II-XII grossly intact. Motor strength 5/5 in all extremities. Sensory grossly intact. Cerebellar exam normal. Normal gait. Psych: Awake, alert, with orientation to person, place and time. Behavior, mood, and affect are within normal limits. 08:49 Musculoskeletal/extremity: ROM: full active range of motion, full passive range of ren motion, Circulation is intact in all extremities. Sensation intact. Compartment Syndrome exam of affected extremity: is normal. Weight bearing: able to fully bear weight, without difficulty, DVT Exam: No signs of deep vein thrombosis. no swelling, negative Homans' sign noted on exam, no appreciated bluish discoloration, no erythema, no increased warmth, pain, tenderness. Vital Signs: 08:28 BP 125 / 80; Pulse 79; Resp 16; Temp 98.2; Pulse Ox 100% on R/A; Pain 9/10; iw 09:47 BP 119 / 83; Pulse 65; Resp 17; Pulse Ox 98% on R/A; tw2 MDM: 08:37 Patient medically screened. ren 08:50 Differential diagnosis: fracture, sprain, gout. Data reviewed: vital signs, nurses [facility] notes, radiologic studies, plain films. Data interpreted: transportation security officer: not applicable for this patient encounter. rate is 79 beats/min. Test interpretation: by ED physician or midlevel provider: plain radiologic studies. Counseling: I had a detailed discussion with the patient and/or guardian regarding: the historical points, exam findings, and any diagnostic results supporting the discharge/admit diagnosis, radiology results, the need for outpatient follow up, for definitive care, a orthopedic surgeon. 12/01 09:12 Order name: Urine Dipstick--Ancillary (enter results) 12/01 09:12 Order name: Urine --Ancillary (enter results) 12/01 08:47 Order name: Foot Right 3 View XRAY [facility] 12/01 09:29 Order name: Urine --Ancillary [facility] 12/01 09:29 Order name: Urine Dipstick-Ancillary [facility] 12/01 09:47 Order name: RAD [facility] 12/01 08:47 Order name: Ice pack; Complete Time: 08:56 ren 12/01 08:47 Order name: Post-op shoe; Complete Time: 08:56 ren Administered Medications: 08:56 Drug: Motrin 800 mg Route: PO; tw2 09:47 Follow up: Response: No adverse reaction tw2 Disposition: 12/02/19 08:53 Discharged to Home. Impression: Unspecified sprain of right foot. - Condition is Stable. - Discharge Instructions: Elastic Bandage and RICE, Foot Sprain, RICE for Routine Care of Injuries, RICE for Routine Care of Injuries, [id number], Foot Pain. - Prescriptions for Ibuprofen 600 mg Oral Tablet - take 1 tablet by ORAL route every 6 hours As needed take with food; 20 tablet. - Medication Reconciliation Form, Thank You Letter, Antibiotic Education, Prescription Opioid Use form. - Follow up: Private Physician; When: 2 - 3 days; Reason: Recheck today's complaints, Continuance of care, Re-evaluation by your physician. Follow up: River Johnson MD; When: 2 - 3 days; Reason: Recheck today's complaints, Re-evaluation by your physician. - Problem is new. - Symptoms have improved. Signatures: Dispatcher [employer] [facility] Jasbir Coleman MD MD cha Williams, Irene, RN RN iw Jil Lord RN RN tw2 Corrections: (The following items were deleted from the chart) 09:48 08:53 12/02/2019 08:53 Discharged to Home. Impression: Unspecified sprain of right tw2 foot. Condition is Stable. Forms are Medication Reconciliation Form, Thank You Letter, Antibiotic Education, Prescription Opioid Use. Follow up: Private Physician; When: 2 - 3 days; Reason: Recheck today's complaints, Continuance of care, Re-evaluation by your physician. Follow up: River Johnson; When: 2 - 3 days; Reason: Recheck today's complaints, Re-evaluation by your physician. Problem is new. Symptoms have improved. ren
--- NOTE | 2019-12-02 08:54 | ER ---
Nurse's Notes [facility] Name: Omayra Parra Age: 29 yrs Sex: Female : 1990 Arrival Date: 12/02/2019 Time: 08:18 Bed 19 Private MD: Diagnosis: Unspecified sprain of right foot Presentation: 12/01 08:28 Chief complaint: Patient states: injured foot 3 months ago, right side of right foot is iw very painful, feels like she pulled something, and now her middle toes aren't moving normally and is having pain up into her ankle. Coronavirus screen: At this time, the client does not indicate any symptoms associated with coronavirus-19. Ebola Screen: Patient negative for fever greater than or equal to 101.5 degrees Fahrenheit, and additional compatible Ebola Virus Disease symptoms Patient denies exposure to infectious person. Patient denies travel to an Ebola-affected area in the 21 days before illness onset. No symptoms or risks identified at this time. Initial Sepsis Screen: Does the patient meet any 2 criteria? No. Patient's initial sepsis screen is negative. Does the patient have a suspected source of infection? No. Patient's initial sepsis screen is negative. Risk Assessment: Do you want to hurt yourself or someone else? Patient reports no desire to harm self or others. Onset of symptoms was August 2019. 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 - Social history:: Smoking status: Patient denies any tobacco usage or history of. Patient/guardian denies using tobacco, the patient reports quitting approximately 1 years ago. - Family history:: not pertinent. Screenin:09 Abuse screen: Denies threats or abuse. Nutritional screening: No deficits noted. tw2 Tuberculosis screening: No symptoms or risk factors identified. Fall Risk None identified. Assessment: 08:32 General: Appears in no apparent distress. obese, Behavior is calm, cooperative, tw2 appropriate for age. Pain: Complains of pain in right foot. Neuro: Level of Consciousness is awake, alert, obeys commands, Oriented to person, place, time, situation. Cardiovascular: Patient's skin is warm and dry. Respiratory: Airway is patent Respiratory effort is even, unlabored, Respiratory pattern is regular, symmetrical. GI: No signs and/or symptoms were reported involving the gastrointestinal system. : No signs and/or symptoms were reported regarding the genitourinary system. Derm: No signs and/or symptoms reported regarding the dermatologic system. Musculoskeletal: Circulation, motion, and sensation intact. Range of motion: intact in all extremities. 09:01 Reassessment: xray at bedside at this time. tw2 09:47 Reassessment: Patient appears in no apparent distress at this time. No changes from tw2 previously documented assessment. Patient and/or family updated on plan of care and expected duration. Pain level reassessed. Patient is alert, oriented x 3, equal unlabored respirations, skin warm/dry/pink. Vital Signs: 08:28 BP 125 / 80; Pulse 79; Resp 16; Temp 98.2; Pulse Ox 100% on R/A; Pain 9/10; iw 09:47 BP 119 / 83; Pulse 65; Resp 17; Pulse Ox 98% on R/A; tw2 ED Course: 08:18 Patient arrived in ED. as 08:30 Triage completed. iw 08:32 Arm band placed on. iw 08:32 Bed in low position. Call light in reach. Pulse ox on. NIBP on. tw2 08:37 Jasbir Coleman MD is Attending Physician. ren 08:45 Jil Lord RN is Primary Nurse. tw2 08:52 River Johnson MD is Referral Physician. ren 08:57 Awaiting radiology results. Awaiting for x-ray, Awaiting: prior to discharge. tw2 09:47 No provider procedures requiring assistance completed. Patient did not have IV access tw2 during this emergency room visit. Administered Medications: 08:56 Drug: Motrin 800 mg Route: PO; tw2 09:47 Follow up: Response: No adverse reaction tw2 Outcome: 08:53 Discharge ordered by . ren 09:47 Discharged to home ambulatory. tw2 09:47 Condition: stable 09:47 Discharge instructions given to patient, Instructed on discharge instructions, follow up and referral plans. no driving heavy equipment, safety practices, Demonstrated understanding of instructions, follow-up care, medications, safety with post op shoe Prescriptions given X 1. 09:48 Patient left the ED. tw2 Signatures: Jasbir Coleman MD MD cha Martinez, Amelia as Williams, Irene, SUSAN RN iw Jil Lord RN RN tw2 Corrections: (The following items were deleted from the chart) 08:31 08:28 BP 125 / 80; Pulse 79bpm; Resp 16bpm; Pulse Ox 100% RA; iw iw
[2019-12-02] MEDS ORDERED: IBUPROFEN 400 MG TAB ONE (09:06)
[2019-12-02 09:29] LABS: Urine Blood 2+ (NEG); Urine Glucose NEGATIVE (NEG); Urine Protein NEGATIVE (NEG); Urine Specific Gravity >1.030 (1.005-1.030); Urine pH 5.5 (5.0-7.0)
--- NOTE | 2019-12-02 09:46 | RAD REPORT ---
EXAM DESCRIPTION: RAD - Foot Right 3 View - 12/02/2019 9:23 am CLINICAL HISTORY: PAIN, foot injury with knee pain primarily lateral. Patient details inability to n ormally move the toes COMPARISON: No comparisonsNone. FINDINGS: No fracture, dislocation or periosteal reaction. No acute joint finding. The IP joints of the toes are unremarkable. No MTP joint abnormality. Patient has a small plantar spur. No air or foreign body in the soft tissues. Soft tissue over the dorsum of the foot is mildly promine nt. IMPRESSION: No acute bone or joint finding. Patient has a small plantar spur. Soft tissues over the dorsum of the foot are mildly prominent with the patient's baseline unknown.
[2019-12-02 10:02] VITALS: BP 119/83; O2SAT 98
[2019-12-02 10:04] VITALS: TEMP 98.2
== END 2019-12-02 09:48 | disposition home or self-care (01) ==
LOC: ER 08:18
DX: S93.601A Unspecified sprain of right foot, initial encounter (principal); Z88.5 Allergy status to narcotic agent
CPT/HCPCS: 81003; 81025; 99283

== ENCOUNTER 2020-06-11 19:51 | Emergency (ER) | payer SELFPAY ==
--- OUTSIDE RECORDS SUMMARY | 2020-06-11 19:54 | XMS REPORT | Continuity of Care Document ---
:1990 Author Organization [facility] t Address [address] [place] [address] Dr. Magallon [address] [place] [id number] Care Team Providers Name Role Phone Unavailable Unavailable Unavailable Problems This patient has no known problems. Allergies, Adverse Reactions, Alerts This patient has no known allergies or adverse reactions. Medications This patient has no known medications. Procedures This patient has no known procedures. Results This patient has no known results.
[2020-06-11 20:41] LABS: Urine Blood 3+ (Negative); Urine Glucose Negative (Negative); Urine Protein Negative (Negative); Urine Specific Gravity >=1.030 (1.005-1.030); Urine pH 5.5 (5.0-7.0)
[2020-06-11 22:02] LABS: Urine Specific Gravity/Preg >1.030 (1.005-1.030)
--- NOTE | 2020-06-11 23:03 | ER ---
Nurse's Notes [facility] Name: Omayra Parra Age: 29 yrs Sex: Female : 1990 Arrival Date: 06/11/2020 Time: 19:54 Bed Waiting Private MD: Diagnosis: Presentation: 06/11 20:07 Chief complaint: Patient states: earlier today was extremely nauseous, then migraine iw started, has not eaten today, feels dehydrated, no vomiting, has previous hx of migraines in past but had stopped now only gets them sporadically , this is her second migraine in a week. Coronavirus screen: headache. Ebola Screen: Patient negative for fever greater than or equal to 101.5 degrees Fahrenheit, and additional compatible Ebola Virus Disease symptoms Patient denies exposure to infectious person. Patient denies travel to an Ebola-affected area in the 21 days before illness onset. No symptoms or risks identified at this time. Initial Sepsis Screen: Does the patient meet any 2 criteria? No. Patient's initial sepsis screen is negative. Does the patient have a suspected source of infection? No. Patient's initial sepsis screen is negative. Risk Assessment: Do you want to hurt yourself or someone else? Patient reports no desire to harm self or others. Onset of symptoms was June 11, 2020. 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 - Social history:: Smoking status: Patient reports the use of cigarette tobacco products, denies chronic smoking, but will smoke occasionally. Assessment: 22:55 Reassessment: not in lobby. iw Vital Signs: 20:07 BP 137 / 76; Pulse 83; Resp 16; Temp 97.9; Pulse Ox 100% ; Pain 10/10; iw ED Course: 19:54 Patient arrived in ED. bp1 20:09 Triage completed. iw 20:10 Arm band placed on. iw 23:02 Patient's name was called from ER lobby. No response. Unable to locate patient. Will bb disposition as left without being seen by a provider. Administered Medications: No medications were administered Outcome: 23:02 Patient left the ED. bb Signatures: Ann Marie Marquez RN RN bb Williams, Irene, RN RN Emilee Moncada
[2020-06-11 23:08] VITALS: BP 137/76; TEMP 97.9; O2SAT 100
== END 2020-06-11 23:02 | disposition left against medical advice (07) ==
LOC: ER 19:51
DX: Z53.21 Procedure and treatment not carried out due to patient leaving prior to being seen by health care provider (principal)
CPT/HCPCS: 81003; 81025; 99281

== ENCOUNTER 2020-06-19 21:21 | Emergency (ER) | payer OTHER ==
--- OUTSIDE RECORDS SUMMARY | 2020-06-19 21:24 | XMS REPORT | Continuity of Care Document ---
:1990 Author Organization [facility] t Address [address] [place] [address] Dr. Magallon [address] [place] [id number] Care Team Providers Name Role Phone Unavailable Unavailable Unavailable Problems This patient has no known problems. Allergies, Adverse Reactions, Alerts This patient has no known allergies or adverse reactions. Medications This patient has no known medications. Procedures This patient has no known procedures. Results This patient has no known results.
[2020-06-19 23:01] LABS: Urine Blood Trace-intact (Negative); Urine Glucose Negative (Negative); Urine Protein Negative (Negative); Urine Specific Gravity >=1.030 (1.005-1.030)
[2020-06-19 23:09] LABS: Urine Specific Gravity/Preg >1.030 (1.005-1.030)
[2020-06-19 23:10] LABS: Absolute Lymphocytes (CBC) 2.7 K/uL (0.7-4.9); Hematocrit 37.2 % (36.0-45.0); Lymphocytes % 26.4 % (15.3-44.8); MPV 6.8 fL (7.6-11.3); RBC Red Blood Cell Count 4.53 M/uL (3.86-4.86)
[2020-06-19 23:21] LABS: ALT/SGPT 17 U/L (12-78); AST/SGOT 10 U/L (15-37); Albumin 3.5 g/dL (3.4-5.0); Alkaline Phosphatase 80 U/L (45-117); BUN Blood Urea Nitrogen 11 mg/dL (7-18); Bicarbonate 30 mmol/L (21-32); Bilirubin Direct < 0.1 mg/dL (0-0.2); Bilirubin Total 0.4 mg/dL (0.2-1.0); Glucose Level 110 mg/dL (74-106); Lipase 95 U/L (73-393); Magnesium 2.4 mg/dL (1.8-2.4); Potassium 3.5 mmol/L (3.5-5.1); Protein, Total 7.4 g/dL (6.4-8.2); Sodium Level 142 mmol/L (136-145)
[2020-06-19] MEDS ORDERED: PROMETHAZINE INJ 25 MG/ML AMP ONE (23:22)
[2020-06-19] MEDS ORDERED: NA CHLORIDE 0.9% 1,000 ML ONE (23:24)
[2020-06-19] MEDS ORDERED: FENTANYL CITR 100 MCG/2 ML ONE (23:24)
[2020-06-19 23:33] LABS: Urine Bacteria 20-50 /HPF (<20); Urine Mucus 3+ /HPF (NONE SEEN); Urine RBC <5 /HPF (NONE SEEN); Urine Sperm PRESENT (NONE SEEN)
[2020-06-20] MEDS ORDERED: MECLIZINE HCL 12.5 MG TAB ONE (00:42)
--- NOTE | 2020-06-20 01:16 | EDPHYS ---
Physician Documentation [facility] Name: Omayra Parra Age: 29 yrs Sex: Female : 1990 Arrival Date: 06/19/2020 Time: 21:22 Bed 18 Private MD: ED Physician Pako Parra HPI: 06/19 22:50 This 29 yrs old Female presents to ER via Ambulatory with complaints of cp Nausea, Dizziness. 22:50 The patient presents to the emergency department with nausea, that is moderate. Onset: cp The symptoms/episode began/occurred 2 day(s) ago. Possible causes: unknown. Associated signs and symptoms: Pertinent positives: dizziness and right flank pain, Pertinent negatives: constipation, diarrhea, fever, active vomiting. Severity of symptoms: in the emergency department the symptoms are unchanged despite home interventions. 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 - Social history:: Smoking status: Patient reports the use of cigarette tobacco products, denies chronic smoking, but will smoke occasionally. ROS: 22:57 Constitutional: Negative for body aches, chills, fever, poor PO intake. cp 22:57 Eyes: Negative for injury, pain, redness, and discharge. cp 22:57 ENT: Negative for ear pain, sore throat, difficulty swallowing, difficulty handling secretions. 22:57 Cardiovascular: Negative for chest pain, palpitations. 22:57 Respiratory: Negative for cough, shortness of breath, wheezing. 22:57 Abdomen/GI: Positive for abdominal pain, nausea, of the epigastric area and right upper quadrant, Negative for diarrhea, constipation, active vomiting. 22:57 Back: Positive for flank pain, on the right. 22:57 : Negative for urinary symptoms. 22:57 Neuro: Positive for dizziness, Negative for altered mental status, syncope, weakness. 22:57 All other systems are negative. Exam: 23:00 Constitutional: The patient appears in no acute distress, alert, awake, non-toxic, well cp developed, well nourished. 23:00 Head/Face: Normocephalic, atraumatic. cp 23:00 Eyes: Periorbital structures: appear normal, Pupils: equal, round, and reactive to light and accomodation, Extraocular movements: intact throughout, Conjunctiva: normal, Sclera: no appreciated abnormality, Lids and lashes: appear normal, bilaterally. 23:00 ENT: External ear(s): are unremarkable, Ear canal(s): are normal, clear, TM's: dullness, bilaterally, Nose: is normal, Mouth: Lips: moist, Oral mucosa: moist, Posterior pharynx: Airway: no evidence of obstruction, patent. 23:00 Chest/axilla: Inspection: normal. 23:00 Cardiovascular: Rate: normal, Rhythm: regular. 23:00 Respiratory: the patient does not display signs of respiratory distress, Respirations: normal, no use of accessory muscles, no retractions, labored breathing, is not present, Breath sounds: are clear throughout, no decreased breath sounds, no stridor, no wheezing. 23:00 Abdomen/GI: Inspection: abdomen appears normal, Bowel sounds: active, all quadrants, Palpation: soft, in all quadrants, moderate abdominal tenderness, in the epigastric area and right upper quadrant, rebound tenderness, is not appreciated, involuntary guarding, is not appreciated. 23:00 Back: pain, that is moderate, of the right mid back. 23:00 Neuro: Orientation: to person, place \T\ time. Mentation: is normal, Motor: moves all fours, strength is normal, Gait: is steady. Vital Signs: 21:28 BP 140 / 90; Pulse 89; Resp 15; Temp 97.7; Pulse Ox 100% on R/A; Weight 113.4 kg; lm7 Height 5 ft. 2 in. (157.48 cm); 06/20 01:00 BP 138 / 79; Pulse 84; Resp 16; Pulse Ox 98% on R/A; iw 06/19 21:28 Body Mass Index 45.73 (113.40 kg, 157.48 cm) lm7 MDM: 06/19 22:32 Patient medically screened. cp 23:00 Differential diagnosis: gastritis, cholecystitis, pancreatitis, viral gastroenteritis, cp gastroenteritis, vertigo, electrolyte abnormality. 06/20 01:15 Data reviewed: vital signs, nurses notes, lab test result(s), radiologic studies, CT cp scan. 01:15 Counseling: I had a detailed discussion with the patient and/or guardian regarding: the cp historical points, exam findings, and any diagnostic results supporting the discharge/admit diagnosis, lab results, radiology results, to return to the emergency department if symptoms worsen or persist or if there are any questions or concerns that arise at home. Response to treatment: the patient's symptoms have markedly improved after treatment, VSS. Pain and nausea markedly improved. Will discharge to home for continued monitoring. 06/19 22:43 Order name: Basic Metabolic Panel; Complete Time: 23:53 cp 06/19 23:53 Interpretation: Normal except: GLUC 110. cp 06/19 22:43 Order name: CBC with Diff; Complete Time: 23:53 cp 06/19 22:43 Order name: Hepatic Function; Complete Time: 23:53 cp 06/19 22:43 Order name: Lipase; Complete Time: 23:53 06/19 22:43 Order name: Urine Microscopic Only; Complete Time: 23:53 06/20 00:53 Interpretation: Normal except: UWBC 5-10; UBACT 20-50; SQEPI 5-10; MUCUS 3+; SPERM cp PRESENT. 06/19 22:43 Order name: Magnesium; Complete Time: 23:53 cp 06/19 22:43 Order name: US Abdomen Limited 06/19 23:01 Order name: Urine Dipstick-Ancillary; Complete Time: 23:53 [facility] 06/19 23:06 Order name: Urine --Ancillary (enter results); Complete Time: 23:53 tt3 06/19 23:34 Order name: Urine Culture EDWV 06/19 23:54 Order name: CT Stone Protocol 06/19 23:54 Order name: CT Head Brain wo Cont 06/19 22:43 Order name: IV Saline Lock; Complete Time: 22:54 cp 06/19 22:43 Order name: Labs collected and sent; Complete Time: 22:54 cp 06/19 22:43 Order name: Urine Test (obtain specimen); Complete Time: 23:08 cp 06/19 22:43 Order name: Urine Dipstick-Ancillary (obtain specimen); Complete Time: 23:08 cp Administered Medications: 06/19 23:48 Drug: NS 0.9% 1000 ml Route: IV; Rate: 1 bolus; Site: right antecubital; zb 23:49 Drug: Phenergan (promethazine) 25 mg Route: IVP; Site: right antecubital; zb 23:49 Drug: fentaNYL (PF) 25 mcg {Note: RASS +0.} Route: IVP; Site: right antecubital; zb 06/20 00:20 Drug: Meclizine 25 mg Route: PO; iw 01:24 Drug: Rocephin (cefTRIAXone) 1 grams Route: IV; Rate: calculated rate; Site: right iw antecubital; 01:25 Drug: TORadol - (ketorolac) 15 mg Route: IVP; Site: right antecubital; iw Disposition: 05:07 Co-signature as Attending Physician, Pako Parra MD. [facility] Disposition: 06/20/20 01:15 Discharged to Home. Impression: Dizziness and giddiness, Low back pain, Nausea. - Condition is Stable. - Discharge Instructions: Back Pain, Adult, Dizziness, Nausea, Adult. - Prescriptions for Meclizine 25 mg Oral Tablet - take 1 tablet by ORAL route every 8 hours As needed; 30 tablet. Naprosyn 500 mg Oral Tablet - take 1 tablet by ORAL route 2 times per day take with food; 20 tablet. Zofran 4 mg Oral Tablet - take 1 tablet by ORAL route every 12 hours As needed; 20 tablet. Bactrim DS 800- 160 mg Oral Tablet - take 1 tablet by ORAL route every 12 hours for 5 days; 10 tablet. Lidoderm 5 % Topical adhesive patch,medicated - apply 1 patch by TRANSDERMAL route once daily As needed apply to painful areas of back as directed; 1 box. - Medication Reconciliation Form, Thank You Letter, Antibiotic Education, Prescription Opioid Use form. - Follow up: Private Physician; When: 2 - 3 days; Reason: Recheck today's complaints. - Problem is new. - Symptoms have improved. Signatures: Dispatcher [employer] Dorothy Eid RN RN Airam Sanchez 7 Jasbir Meredith PA PA cp Holmes, Maurice, MD MD [facility] Lidya Frye RN RN zb Corrections: (The following items were deleted from the chart) 01:40 01:15 06/20/2020 01:15 Discharged to Home. Impression: Dizziness and giddiness; Low iw back pain; Nausea. Condition is Stable. Forms are Medication Reconciliation Form, Thank You Letter, Antibiotic Education, Prescription Opioid Use. Follow up: Private Physician; When: 2 - 3 days; Reason: Recheck today's complaints. Problem is new. Symptoms have improved. cp
--- NOTE | 2020-06-20 01:16 | ER ---
Nurse's Notes [facility] Name: Omayra Parra Age: 29 yrs Sex: Female : 1990 Arrival Date: 06/19/2020 Time: 21:22 Bed 18 Private MD: Diagnosis: Dizziness and giddiness;Low back pain;Nausea Presentation: 06/19 21:28 Chief complaint: Patient states: Pt reports severe nausea, motion sick, dizziness X 2 lm7 days. [place] better this morning, now worse. Also c/o right flank pain. Coronavirus screen: Client denies travel out of the [place] in the last 14 days. At this time, the client does not indicate any symptoms associated with coronavirus-19. Ebola Screen: Patient negative for fever greater than or equal to 101.5 degrees Fahrenheit, and additional compatible Ebola Virus Disease symptoms Patient denies exposure to infectious person. Patient denies travel to an Ebola-affected area in the 21 days before illness onset. Initial Sepsis Screen: Does the patient meet any 2 criteria? No. Patient's initial sepsis screen is negative. Does the patient have a suspected source of infection? No. Patient's initial sepsis screen is negative. Risk Assessment: Do you want to hurt yourself or someone else? Patient reports no desire to harm self or others. Onset of symptoms was June 17, 2020. 21:28 Method Of Arrival: Ambulatory lm7 21:28 Acuity: GAYE 3 lm7 Triage Assessment: 21:36 General: Appears in no apparent distress. comfortable, Behavior is calm, cooperative, lm7 appropriate for age. Pain: Complains of pain in right flank Pain currently is 9 out of 10 on a pain scale. Quality of pain is described as sharp, stabbing. Neuro: No deficits noted. Respiratory: Airway is patent Respiratory effort is even, unlabored, Respiratory pattern is regular, symmetrical. GI: Abdomen is tender to palpation in posterior aspect of right lateral abdomen and anterior aspect of right lateral abdomen Reports nausea. 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 - Social history:: Smoking status: Patient reports the use of cigarette tobacco products, denies chronic smoking, but will smoke occasionally. Screenin:29 Abuse screen: Denies threats or abuse. Denies injuries from another. Nutritional zb screening: No deficits noted. Tuberculosis screening: No symptoms or risk factors identified. Fall Risk None identified. Assessment: 22:34 General: Appears uncomfortable, Behavior is calm, cooperative, appropriate for age. zb Pain: Complains of pain in posterior aspect of right lateral abdomen and anterior aspect of right lateral abdomen Pain does not radiate. Pain at worst was 9 out of 10 on a pain scale. Quality of pain is described as sharp, stabbing, Pain began today Is intermittent. Neuro: Level of Consciousness is awake, alert, obeys commands. Cardiovascular: Capillary refill < 3 seconds Patient's skin is warm and dry. Respiratory: Airway is patent Respiratory effort is even, unlabored, Respiratory pattern is regular. GI: Abdomen is round. GI: Reports nausea, Patient currently denies intolerance of fluids, intolerance of food, vomiting. : No signs and/or symptoms were reported regarding the genitourinary system. Derm: Skin is intact, is healthy with good turgor, Skin is dry, Skin is normal. Musculoskeletal: Circulation, motion, and sensation intact. Range of motion: intact in all extremities. 22:38 Reassessment: ECP at bedside. zb Vital Signs: 21:28 BP 140 / 90; Pulse 89; Resp 15; Temp 97.7; Pulse Ox 100% on R/A; Weight 113.4 kg; lm7 Height 5 ft. 2 in. (157.48 cm); 06/20 01:00 BP 138 / 79; Pulse 84; Resp 16; Pulse Ox 98% on R/A; iw 06/19 21:28 Body Mass Index 45.73 (113.40 kg, 157.48 cm) lm7 ED Course: 06/19 21:22 Patient arrived in ED. am4 21:34 Triage completed. lm7 21:36 Arm band placed on left wrist. lm7 22:18 Jasbir Meredith PA is PHCP. cp 22:18 Pako Parra MD is Attending Physician. cp 22:29 Lidya Frye RN is Primary Nurse. zb 22:29 Patient has correct armband on for positive identification. Call light in reach. Side zb rails up X 1. Bed in low position. Pulse ox on. NIBP on. Door closed. Noise minimized. 22:56 Inserted saline lock: 20 gauge in right antecubital area, using aseptic technique. dh4 Blood collected. 23:14 US Abdomen Limited In Process Unspecified. EDMS 06/20 01:07 CT Stone Protocol In Process Unspecified. EDMS 01:07 CT Head Brain wo Cont In Process Unspecified. EDMS 01:39 No provider procedures requiring assistance completed. IV discontinued, intact, iw bleeding controlled, No redness/swelling at site. Pressure dressing applied. Administered Medications: 06/19 23:48 Drug: NS 0.9% 1000 ml Route: IV; Rate: 1 bolus; Site: right antecubital; zb 23:49 Drug: Phenergan (promethazine) 25 mg Route: IVP; Site: right antecubital; zb 23:49 Drug: fentaNYL (PF) 25 mcg {Note: RASS +0.} Route: IVP; Site: right antecubital; zb 06/20 00:20 Drug: Meclizine 25 mg Route: PO; iw 01:24 Drug: Rocephin (cefTRIAXone) 1 grams Route: IV; Rate: calculated rate; Site: right iw antecubital; 01:25 Drug: TORadol - (ketorolac) 15 mg Route: IVP; Site: right antecubital; iw Outcome: 01:15 Discharge ordered by . cp 01:39 Discharged to home via wheelchair. iw 01:39 Condition: good 01:39 Discharge instructions given to patient, family, Instructed on discharge instructions, follow up and referral plans. medication usage, Demonstrated understanding of instructions, follow-up care, medications, Prescriptions given X 4. 01:40 Patient left the ED. iw Signatures: Dispatcher [employer] EDMS Dorothy Rose RN RN iw Minter, Laura lm7 Jasbir Meredith PA PA cp Huhn, Donald 4 Lidya Frye RN RN zb Martinez, Ashley 4
[2020-06-20] MEDS ORDERED: KETOROLAC 30 MG/ML INJ ONE (01:37)
[2020-06-20] MEDS ORDERED: CEFTRIAXONE/SWI 1gm 1 GM/10 ML SYR ONE (01:37)
[2020-06-20 01:51] VITALS: TEMP 97.7
[2020-06-20 01:53] VITALS: BP 138/79; O2SAT 98
--- NOTE | 2020-06-20 08:10 | RAD REPORT ---
EXAM DESCRIPTION: US - Abdomen Exam Limited - 06/19/2020 11:14 pm CLINICAL HISTORY: RUQ abdomen pain Preliminary imaging results provided at the time of the study. COMPARISON: Abdomen Pelvis W Contrast dated 11/03/2018 FINDINGS: Gallbladder is contracted which limits evaluation. No gross evidence for large gallstones. Small gallstones could be occult. No sludge is present. There is no wall thickening or pericholecyst ic fluid. No common duct stone or biliary tree dilatation identified. IMPRESSION: Negative but limited gallbladder ultrasound. No stones or sludge seen. Contracted state limits evaluation.
--- NOTE | 2020-06-21 11:16 | RAD REPORT ---
EXAM DESCRIPTION: CT - Head Brain Wo Cont - 06/20/2020 6:47 am CLINICAL HISTORY: DIZZINESS COMPARISON: 07/12/2018 TECHNIQUE: Axial CT of the head obtained from the skull apex to the skull base without contrast. Thi s exam was performed according to our departmental dose-optimization program, which includes automate d exposure control, adjustment of the mA and/or kV according to patient size and/or use of iterative reconstruction technique. FINDINGS: No acute intracranial hemorrhage identified. No mass, mass effect, shift of the midline, a bnormal extra-axial fluid collection or CT evidence of acute ischemic change identified. The ventricu lar system is unremarkable. No acute abnormalities of the supratentorial white matter, basal gangli a, cerebellum, or brainstem. The visualized paranasal sinuses and the mastoid air cells are relatively well aerated. No skull fr acture identified. Visualized orbits and globes are unremarkable. IMPRESSION: 1. No acute intracranial abnormality identified. Electronically signed by: Casey Azevedo 06/20/2020 12:39 AM CDT Due to temporary technical issues with the PACS/Fluency reporting system, reports are being signed by the in house radiologist without review as a courtesy to ensure prompt reporting. The interpreting r adiologist is fully responsible for the content of the report.
--- NOTE | 2020-06-21 11:34 | RAD REPORT ---
EXAM DESCRIPTION: CT - Stone Protocol - 06/20/2020 6:47 am COMPARISON: CT abdomen pelvis November 03, 2018 CLINICAL HISTORY: [facility] MAIN FLANK PAIN TECHNIQUE: CT of the abdomen and pelvis was acquired without IV contrast material, according to the renal stone protocol. Coronal and sagittal reconstructions were obtained. Automated exposure contro l was utilized on this examination as a dose lowering technique. FINDINGS: Lung bases: Cardiomegaly. Bibasilar atelectasis is present. *Limited evaluation of the solid organs due to lack of IV contrast. Liver: Normal. Gallbladder and biliary: Normal gallbladder. Unremarkable biliary tree. Pancreas: Normal. Spleen: Normal. Adrenal glands: Normal. Kidneys and ureters: No renal or ureteral calculi are present. Kidneys are normal. Stomach and Small Bowel: The stomach and small bowel are normal. Urinary bladder: Normal. Uterus and Adnexa: Normal. Colon and Appendix: The colon is unremarkable. No evidence of appendicitis. Peritoneal cavity: No ascites or free air. Retroperitoneum and lymph nodes: Normal. Vascular: Normal. Musculoskeletal and soft tissues: Soft tissues are unremarkable. No aggressive bone lesions. No com pression fracture. IMPRESSION: 1. No obstructive uropathy or other acute intra-abdominal process. 2. Cardiomegaly. Electronically signed by: Sebas Messina MD 06/20/2020 12:40 AM CDT Due to temporary technical issues with the PACS/Fluency reporting system, reports are being signed by the in house radiologist without review as a courtesy to ensure prompt reporting. The interpreting r adiologist is fully responsible for the content of the report.
== END 2020-06-20 01:40 | disposition home or self-care (01) ==
LOC: ER 21:21
DX: M54.5 Low back pain (principal); R11.0 Nausea; F17.210 Nicotine dependence, cigarettes, uncomplicated; Z88.5 Allergy status to narcotic agent
CPT/HCPCS: 87088; 85025; 87086; 80048; 36415; 83735; 81025; 80076; 83690; 70450; 76377; 74176; 76705; 96375; 96374; 99284; J2550; J3010; J0696; J7030; 81003; 81015

== ENCOUNTER 2020-06-25 19:05 | Emergency (ER) | payer OTHER, SELFPAY ==
--- OUTSIDE RECORDS SUMMARY | 2020-06-25 19:07 | XMS REPORT | Continuity of Care Document ---
:1990 Author Organization [facility] t Address [address] [place] [address] Dr. Magallon [address] [place] [id number] Care Team Providers Name Role Phone Unavailable Unavailable Unavailable Problems This patient has no known problems. Allergies, Adverse Reactions, Alerts This patient has no known allergies or adverse reactions. Medications This patient has no known medications. Procedures This patient has no known procedures. Results This patient has no known results.
[2020-06-25 20:15] LABS: Basophils % 0.8 % (0-1.3); Hematocrit 37.8 % (36.0-45.0); Lymphocytes % 24.2 % (15.3-44.8); MPV 7.4 fL (7.6-11.3)
[2020-06-25 20:23] LABS: ALT/SGPT 23 U/L (12-78); AST/SGOT 12 U/L (15-37); Albumin 3.7 g/dL (3.4-5.0); Alkaline Phosphatase 84 U/L (45-117); BUN Blood Urea Nitrogen 14 mg/dL (7-18); Bicarbonate 27 mmol/L (21-32); Bilirubin Direct 0.1 mg/dL (0-0.2); Bilirubin Total 0.6 mg/dL (0.2-1.0); Glucose Level 98 mg/dL (74-106); Lipase 68 U/L (73-393); Potassium 3.9 mmol/L (3.5-5.1); Protein, Total 7.7 g/dL (6.4-8.2); Sodium Level 140 mmol/L (136-145)
[2020-06-25 20:42] LABS: Blood Morphology Comment NOT SEEN (NOT SEEN); Platelet Estimate ADEQ; White Blood Cell Scan OK (OK)
--- NOTE | 2020-06-25 20:59 | RAD REPORT ---
EXAM DESCRIPTION: CT - Abdomen Pelvis W Contrast - 06/25/2020 8:45 pm CLINICAL HISTORY: ABD PAIN COMPARISON: Abdomen Pelvis W Contrast dated 11/03/2018 TECHNIQUE: Biphasic, helical CT imaging of the abdomen and pelvis was performed following 100 ml non -ionic IV contrast. No oral contrast was given. All CT scans are performed using dose optimization technique as appropriate and may include automated exposure control or mA/KV adjustment according to patient size. FINDINGS: No suspicious findings in the lung bases. The liver, spleen, and pancreas show no suspicious findings. Gallbladder and biliary tree are also wi thout suspicious finding. Symmetric renal function is seen with no hydronephrosis or suspicious renal mass. No pyelonephritis o r acute parenchymal process. No bladder abnormalities. No adrenal abnormalities. Uterus and ovaries s how no suspicious findings. No dilated bowel loops or bowel wall thickening. Appendix is normal. No free air, free fluid or infla mmatory stranding. No hernia, mass or bulky lymphadenopathy. No suspicious bony findings. IMPRESSION: Contrast enhanced CT abdomen and pelvis showing no significant or suspicious finding.
[2020-06-25] MEDS ORDERED: NA CHLORIDE 0.9% 1,000 ML ONE (21:09)
--- NOTE | 2020-06-25 21:21 | ER ---
Nurse's Notes [facility] Name: Omayra Parra Age: 29 yrs Sex: Female : 1990 Arrival Date: 06/25/2020 Time: 19:08 Bed 15 Private MD: Diagnosis: Diarrhea, unspecified;Nausea and vomiting Presentation: 06/25 19:22 Chief complaint: Patient states: Ever since SundayJune 21, Fernanda been having diarrhea 4-5 vg1 times a day and nausea. Coronavirus screen: Client denies travel out of the [place] in the last 14 days. Ebola Screen: Patient negative for fever greater than or equal to 101.5 degrees Fahrenheit, and additional compatible Ebola Virus Disease symptoms. Initial Sepsis Screen: Does the patient meet any 2 criteria? No. Patient's initial sepsis screen is negative. Does the patient have a suspected source of infection? No. Patient's initial sepsis screen is negative. Risk Assessment: Do you want to hurt yourself or someone else? Patient reports no desire to harm self or others. Onset of symptoms was June 21, 2020. 19:22 Method Of Arrival: Ambulatory vg1 19:22 Acuity: GAYE 3 vg1 Triage Assessment: 19:27 General: Appears in no apparent distress. comfortable, Behavior is calm, cooperative. vg1 Pain: Complains of pain in abdomen. GI: Abdomen is round Reports diarrhea. 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 - Social history:: Smoking status: Patient reports the use of cigarette tobacco products, denies chronic smoking, but will smoke occasionally. Screenin:09 Abuse screen: Denies threats or abuse. Denies injuries from another. Nutritional jm8 screening: No deficits noted. Tuberculosis screening: No symptoms or risk factors identified. Fall Risk IV access (20 points). Assessment: 20:02 General: Appears in no apparent distress. comfortable, Behavior is calm, cooperative, jm8 appropriate for age. Pain: Pain currently is 8 out of 10 on a pain scale. Quality of pain is described as aching, Pain began 1 week ago Aggravated by eating. Neuro: No deficits noted. Level of Consciousness is awake, alert, obeys commands, Oriented to person, place, time. Cardiovascular: No deficits noted. Respiratory: No deficits noted. Airway is patent Trachea midline Respiratory effort is even, unlabored. GI: Abdomen is round distended, Bowel sounds present X 4 quads. Abd is soft X 4 quads Abdomen is tender to palpation X 4 quads. Reports lower abdominal pain, upper abdominal pain, diarrhea, intolerance of food, nausea. 20:05 : No deficits noted. No signs and/or symptoms were reported regarding the jm8 genitourinary system. EENT: No deficits noted. No signs and/or symptoms were reported regarding the EENT system. Derm: No deficits noted. No signs and/or symptoms reported regarding the dermatologic system. Skin is intact, is healthy with good turgor, Skin is dry, Skin is pink, warm \T\ dry. Musculoskeletal: No deficits noted. No signs and/or symptoms reported regarding the musculoskeletal system. Vital Signs: 19:22 BP 126 / 77; Pulse 75; Resp 16; Temp 97.7; Pulse Ox 99% ; Weight 119.75 kg; Height 5 vg1 ft. 2 in. (157.48 cm); Pain 8/10; 20:57 BP 114 / 81; Pulse 83; Resp 16; Pulse Ox 100% on R/A; jm8 19:22 Body Mass Index 48.29 (119.75 kg, 157.48 cm) vg1 ED Course: 19:08 Patient arrived in ED. mr 19:25 Toro RamaBEN ruggiero is [facility]. kb 19:25 Pako Parra MD is Attending Physician. kb 19:26 Triage completed. vg1 19:27 Arm band placed on Patient placed in waiting room, Patient notified of wait time. vg1 20:10 Patient has correct armband on for positive identification. Bed in low position. Call jm8 light in reach. Side rails up X2. 20:12 Inserted saline lock: 20 gauge in left antecubital area, using aseptic technique. jm8 20:45 CT Abd/Pelvis - IV Contrast Only In Process Unspecified. EDMS 21:47 No provider procedures requiring assistance completed. IV discontinued, intact, jm8 bleeding controlled. Administered Medications: 20:50 Drug: NS 0.9% 1000 ml Route: IV; Rate: 1000 ml; Site: left antecubital; jm8 21:47 Follow up: IV Status: Completed infusion jm8 Outcome: 21:20 Discharge ordered by MD. friedman 21:48 Discharged to home ambulatory. jm8 21:48 Condition: good 21:48 Discharge instructions given to patient, Instructed on discharge instructions, follow up and referral plans. medication usage, Demonstrated understanding of instructions, follow-up care, medications. 21:48 Patient left the ED. jm8 Signatures: Dispatcher [employer] EDRama Nichols, METER ENGINEER-C NIKOLAI-Rosa Farooq Victoria, RN RN vg1 Rajesh Black, RN RN jm8
--- NOTE | 2020-06-25 21:21 | EDPHYS ---
Physician Documentation [facility] Name: Omayra Parra Age: 29 yrs Sex: Female : 1990 Arrival Date: 06/25/2020 Time: 19:08 Bed 15 Private MD: ED Physician Pako Parra HPI: 06/25 23:31 This 29 yrs old Female presents to ER via Ambulatory with complaints of kb Diarrhea. 23:31 The patient presents to the emergency department with nausea, diarrhea. Onset: The kb symptoms/episode began/occurred 5 day(s) ago. Possible causes: unknown. The symptoms are aggravated by nothing. The symptoms are alleviated by nothing. Associated signs and symptoms: Pertinent positives: diarrhea, nausea. Severity of symptoms: At their worst the symptoms were moderate in the emergency department the symptoms are unchanged. The patient has not experienced similar symptoms in the past. The patient has not recently seen a physician. Pt states she was seen here on 06/21 because she was sick. States her symptoms from that visit went away, but has had approx 5 episodes of diarrhea a day since that visit, as well as, nausea after ingesting anything. 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 - Social history:: Smoking status: Patient reports the use of cigarette tobacco products, denies chronic smoking, but will smoke occasionally. ROS: 23:30 Constitutional: Negative for fever, chills, and weight loss. kb 23:30 Abdomen/GI: Positive for nausea, diarrhea, abdominal cramps. 23:30 All other systems are negative. Exam: 23:30 Constitutional: This is a well developed, well nourished patient who is awake, alert, kb and in no acute distress. Head/Face: Normocephalic, atraumatic. ENT: Moist Mucous membranes Cardiovascular: Regular rate and rhythm with a normal S1 and S2. No gallops, murmurs, or rubs. No pulse deficits. Respiratory: Respirations even and unlabored. No increased work of breathing, no retractions or nasal flaring. Abdomen/GI: Soft, non-tender. No distention Skin: Warm, dry with normal turgor. Normal color. MS/ Extremity: Pulses equal, no cyanosis. Neurovascular intact. Full, normal range of motion. Neuro: Awake and alert, GCS 15, oriented to person, place, time, and situation. Moves all extremities. Normal gait. Psych: Awake, alert, with orientation to person, place and time. Behavior, mood, and affect are within normal limits. Vital Signs: 19:22 BP 126 / 77; Pulse 75; Resp 16; Temp 97.7; Pulse Ox 99% ; Weight 119.75 kg; Height 5 vg1 ft. 2 in. (157.48 cm); Pain 8/10; 20:57 BP 114 / 81; Pulse 83; Resp 16; Pulse Ox 100% on R/A; jm8 19:22 Body Mass Index 48.29 (119.75 kg, 157.48 cm) vg1 MDM: 19:25 Patient medically screened. kb 23:30 Data reviewed: vital signs, nurses notes. Data interpreted: Pulse oximetry: on room air kb is 100 %. Interpretation: normal. Counseling: I had a detailed discussion with the patient and/or guardian regarding: the historical points, exam findings, and any diagnostic results supporting the discharge/admit diagnosis, lab results, radiology results, the need for outpatient follow up, a family practitioner, a voting machine mechanic, to return to the emergency department if symptoms worsen or persist or if there are any questions or concerns that arise at home. 06/25 19:25 Order name: Basic Metabolic Panel; Complete Time: 20:24 kb 06/25 19:25 Order name: CBC with Diff; Complete Time: 20:56 kb 06/25 19:25 Order name: Hepatic Function; Complete Time: 20:24 kb 06/25 19:25 Order name: Lipase; Complete Time: 20:24 kb 06/25 20:24 Order name: CT Abd/Pelvis - IV Contrast Only; Complete Time: 21:04 kb 06/25 20:42 Order name: CBC Smear Scan; Complete Time: 20:56 EDMS 06/25 19:25 Order name: IV Saline Lock; Complete Time: 19:54 kb 06/25 19:25 Order name: Labs collected and sent; Complete Time: 20:09 kb Administered Medications: 20:50 Drug: NS 0.9% 1000 ml Route: IV; Rate: 1000 ml; Site: left antecubital; jm8 21:47 Follow up: IV Status: Completed infusion jm8 Disposition: 06/26 04:13 Co-signature as Attending Physician, Pako Parra MD. 7 Disposition: 06/25/20 21:20 Discharged to Home. Impression: Diarrhea, unspecified, Nausea and vomiting. - Condition is Stable. - Discharge Instructions: Food Choices to Help Relieve Diarrhea, Adult, Nausea and Vomiting, Adult, [id number], Diarrhea, Adult, [id number]. - Prescriptions for Bentyl 20 mg Oral Tablet - take 1 tablet by ORAL route every 6 hours As needed; 20 tablet. promethazine 25 mg Oral Tablet - take 1 tablet by ORAL route every 8 hours As needed; 20 tablet. - Medication Reconciliation Form, Thank You Letter, Antibiotic Education, Prescription Opioid Use form. - Follow up: Emergency Department; When: As needed; Reason: Worsening of condition. Follow up: Private Physician; When: 2 - 3 days; Reason: Recheck today's complaints, Continuance of care, Re-evaluation by your physician. Signatures: Dispatcher [employer] EDRama Nichols, RECEPTIONIST NURSE-C RECEPTIONIST NURSE-CkCarissa Cornejo, RN RN vg1 Pako Parra MD MD mh7 Rajesh Black, RN RN jm8 Corrections: (The following items were deleted from the chart) 06/25 21:48 21:20 06/25/2020 21:20 Discharged to Home. Impression: Diarrhea, unspecified; Nausea jm8 and vomiting. Condition is Stable. Forms are Medication Reconciliation Form, Thank You Letter, Antibiotic Education, Prescription Opioid Use. Follow up: Emergency Department; When: As needed; Reason: Worsening of condition. Follow up: Private Physician; When: 2 - 3 days; Reason: Recheck today's complaints, Continuance of care, Re-evaluation by your physician. kb
[2020-06-25 21:59] VITALS: TEMP 97.7
[2020-06-25 22:01] VITALS: BP 114/81; O2SAT 100
== END 2020-06-25 21:48 | disposition home or self-care (01) ==
LOC: ER 19:05
DX: R19.7 Diarrhea, unspecified (principal); R11.2 Nausea with vomiting, unspecified; F17.210 Nicotine dependence, cigarettes, uncomplicated; Z88.5 Allergy status to narcotic agent
CPT/HCPCS: 36415; 74177; 80048; 80076; 83690; 85025; 96360; 99283; J7030; Q9967

== ENCOUNTER 2020-08-17 20:42 | Emergency (ER) | payer SELFPAY ==
--- OUTSIDE RECORDS SUMMARY | 2020-08-17 20:45 | XMS REPORT | Continuity of Care Document ---
:1990 Author Organization [facility] t Address [address] [place] [address] Dr. Magallon [address] [place] [id number] Care Team Providers Name Role Phone Unavailable Unavailable Unavailable Problems This patient has no known problems. Allergies, Adverse Reactions, Alerts This patient has no known allergies or adverse reactions. Medications This patient has no known medications. Procedures This patient has no known procedures. Results This patient has no known results.
[2020-08-17 23:15] LABS: Urine Blood Trace-intact (Negative); Urine Glucose Negative (Negative); Urine Protein Negative (Negative); Urine Specific Gravity >=1.030 (1.005-1.030); Urine pH 5.5 (5.0-7.0)
[2020-08-17 23:28] LABS: Urine Specific Gravity/Preg >1.030 (1.005-1.030)
[2020-08-18 00:01] LABS: Absolute Lymphocytes (CBC) 2.7 K/uL (0.7-4.9); Basophils % 1.1 % (0-1.3); Hematocrit 38.1 % (36.0-45.0); Lymphocytes % 26.6 % (15.3-44.8); MPV 6.8 fL (7.6-11.3); RBC Red Blood Cell Count 4.66 M/uL (3.86-4.86)
[2020-08-18 00:05] LABS: Protime INR 1.22
[2020-08-18 00:06] LABS: Calcium Oxalate Crystals- Ur FEW (NONE SEEN); Urine Bacteria >50 /HPF (<20); Urine Mucus 3+ /HPF (NONE SEEN); Urine RBC <5 /HPF (NONE SEEN)
[2020-08-18 00:27] LABS: ALT/SGPT 37 U/L (12-78); AST/SGOT 18 U/L (15-37); Albumin 3.9 g/dL (3.4-5.0); Alkaline Phosphatase 82 U/L (45-117); BUN Blood Urea Nitrogen 9 mg/dL (7-18); Bicarbonate 30 mmol/L (21-32); Bilirubin Total 0.5 mg/dL (0.2-1.0); Glucose Level 91 mg/dL (74-106); Potassium 3.3 mmol/L (3.5-5.1); Protein, Total 7.7 g/dL (6.4-8.2); Sodium Level 142 mmol/L (136-145)
--- NOTE | 2020-08-18 00:37 | EDPHYS ---
Physician Documentation [facility] Name: Omayra Parra Age: 29 yrs Sex: Female : 1990 Arrival Date: 08/17/2020 Time: 20:44 Bed 4 Private MD: WADE Physician Jasbir Coleman HPI: 08/18 00:29 This 29 yrs old Female presents to ER via Ambulatory with complaints of Low ren Back Pain. 00:29 The patient presents with pain that is chronic, with no known mechanism of injury. The ren symptoms are located in the low back. The pain does not radiate. HANDER IN: 08/17 21:10 LMP 08/07/2020 vg1 Historical: - Allergies: 21:10 Morphine; mild intolerance; vg1 - Home Meds: 21:10 cranberry oral [Active]; vg1 - PMHx: 21:10 Anxiety; PCOS; Migraine; vg1 - Immunization history:: Adult Immunizations up to date. - Social history:: Smoking status: Patient reports the use of cigarette tobacco products, smokes one-half pack cigarettes per day. ROS: 08/18 00:30 Constitutional: Negative for fever, chills, and weight loss, Eyes: Negative for injury, ren pain, redness, and discharge, ENT: Negative for injury, pain, and discharge, Neck: Negative for injury, pain, and swelling, Cardiovascular: Negative for chest pain, palpitations, and edema, Respiratory: Negative for shortness of breath, cough, wheezing, and pleuritic chest pain, Abdomen/GI: Negative for abdominal pain, nausea, vomiting, diarrhea, and constipation, : Negative for injury, bleeding, discharge, and swelling, MS/Extremity: Negative for injury and deformity, Skin: Negative for injury, rash, and discoloration, Neuro: Negative for headache, weakness, numbness, tingling, and seizure, Psych: Negative for depression, anxiety, suicide ideation, homicidal ideation, and hallucinations, Allergy/Immunology: Negative for hives, rash, and allergies, Endocrine: Negative for neck swelling, polydipsia, polyuria, polyphagia, and marked weight changes, Hematologic/Lymphatic: Negative for swollen nodes, abnormal bleeding, and unusual bruising. Back: Positive for pain at rest, pain with movement, of the lumbar area. Exam: 00:30 Constitutional: This is a well developed, well nourished patient who is awake, alert, ren and in no acute distress. Head/Face: Normocephalic, atraumatic. Eyes: Pupils equal round and reactive to light, extra-ocular motions intact. Lids and lashes normal. Conjunctiva and sclera are non-icteric and not injected. Cornea within normal limits. Periorbital areas with no swelling, redness, or edema. ENT: Nares patent. No nasal discharge, no septal abnormalities noted. Tympanic membranes are normal and external auditory canals are clear. Oropharynx with no redness, swelling, or masses, exudates, or evidence of obstruction, uvula midline. Mucous membranes moist. Neck: Trachea midline, no thyromegaly or masses palpated, and no cervical lymphadenopathy. Supple, full range of motion without nuchal rigidity, or vertebral point tenderness. No Meningismus. Chest/axilla: Normal chest wall appearance and motion. Nontender with no deformity. No lesions are appreciated. Cardiovascular: Regular rate and rhythm with a normal S1 and S2. No gallops, murmurs, or rubs. Normal PMI, no JVD. No pulse deficits. Respiratory: Lungs have equal breath sounds bilaterally, clear to auscultation and percussion. No rales, rhonchi or wheezes noted. No increased work of breathing, no retractions or nasal flaring. Abdomen/GI: Soft, non-tender, with normal bowel sounds. No distension or tympany. No guarding or rebound. No evidence of tenderness throughout. Pelvic Exam: Normal external genitalia. Speculum exam with closed cervical os, no discharge or bleeding noted. Bimanual exam with normal adnexa, no adnexal or cervical motion tenderness. Normal uterus. Skin: Warm, dry with normal turgor. Normal color with no rashes, no lesions, and no evidence of cellulitis. MS/ Extremity: Pulses equal, no cyanosis. Neurovascular intact. Full, normal range of motion. Neuro: Awake and alert, GCS 15, oriented to person, place, time, and situation. Cranial nerves II-XII grossly intact. Motor strength 5/5 in all extremities. Sensory grossly intact. Cerebellar exam normal. Normal gait. Psych: Awake, alert, with orientation to person, place and time. Behavior, mood, and affect are within normal limits. 00:30 Back: pain, that is mild, that is moderate, ROM is painful, normal spinal alignment noted, CVA tenderness, is absent, muscle spasm, is not present. 00:30 Musculoskeletal/extremity: DVT Exam: No signs of deep vein thrombosis. no pain, no swelling, no tenderness, negative Homans' sign noted on exam, no appreciated bluish discoloration, no erythema, no increased warmth. Vital Signs: 08/17 21:07 BP 126 / 91; Pulse 99; Resp 16; Temp 97.9; Pulse Ox 100% ; Weight 119.75 kg; Height 5 vg1 ft. 3 in. (160.02 cm); Pain 8; 08/18 00:58 BP 124 / 89; Pulse 99; Resp 16; Pulse Ox 100% on R/A; jm8 08/17 21:07 Body Mass Index 46.77 (119.75 kg, 160.02 cm) vg1 MDM: 08/17 23:10 Patient medically screened. [facility] 08/18 00:33 Differential diagnosis: arthritis, strain, sciatica, Herniated disc UTI. Differential ren Diagnosis. Data reviewed: vital signs, nurses notes, lab test result(s), radiologic studies. Data interpreted: youth nutritional monitor: rate is 99 beats/min, rhythm is regular, Pulse oximetry: on room air is 100 %. Test interpretation: by ED physician or midlevel provider: plain radiologic studies. Counseling: I had a detailed discussion with the patient and/or guardian regarding: the historical points, exam findings, and any diagnostic results supporting the discharge/admit diagnosis, lab results, the need for outpatient follow up. 08/17 23:10 Order name: CBC with Diff; Complete Time: 00:27 [facility] 08/17 23:10 Order name: Comprehensive Metabolic Panel; Complete Time: 00:34 [facility] 08/17 23:10 Order name: PT-INR; Complete Time: 00:27 [facility] 08/17 23:15 Order name: Urine Dipstick-Ancillary; Complete Time: 00:27 [facility] 08/17 23:19 Order name: Urine Microscopic Only; Complete Time: 00:27 [facility] 08/17 23:19 Order name: Urine Culture [facility] 08/17 23:10 Order name: Urine Dipstick-Ancillary (obtain specimen); Complete Time: 23:24 [facility] 08/17 23:10 Order name: Urine Test (obtain specimen); Complete Time: 23:18 [facility] 08/17 23:10 Order name: Lumbar Spine (3 Views) XRAY [facility] 08/17 23:19 Order name: Urine --Ancillary (enter results); Complete Time: 00:27 mw2 08/18 00:35 Order name: PO challenge: juice; Complete Time: 00:55 ren Administered Medications: 08/17 23:54 Drug: NS 0.9% 1000 ml Route: IV; Rate: 1 bolus; Site: right antecubital; jm8 08/18 00:59 Follow up: IV Status: Completed infusion jm8 Disposition Summary: 08/18/20 00:36 Discharge Ordered Location: Home [facility] Problem: new ren Symptoms: have improved ren Condition: Stable ren Diagnosis - Low back pain ren - Hypokalemia ren Followup: ren - With: Private Physician - When: 2 - 3 days - Reason: Recheck today's complaints, Continuance of care, Re-evaluation by your physician Discharge Instructions: - Discharge Summary Sheet ren - Acute Back Pain, Adult ren - Potassium Content of Foods ren - Musculoskeletal Pain ren - Chronic Back Pain, [id number] ren - Hypokalemia [facility] Forms: - Medication Reconciliation Form [facility] - Thank You Letter [facility] - Antibiotic Education [facility] - Prescription Opioid Use [facility] Prescriptions: - Ibuprofen 600 mg Oral Tablet - take 1 tablet by ORAL route every 6 hours As needed take with food; 20 tablet; [facility] Refills: 0, Product Selection Permitted - Cyclobenzaprine 5 mg Oral Tablet - take 1 tablet by ORAL route 3 times per day As needed; 15 tablet; Refills: 0, [facility] Product Selection Permitted Signatures: Dispatcher [employer] Jasbir Nguyen MD MD cha Garcia, Victoria, RN RN vg1 Rajesh Black, RN RN jm8
--- NOTE | 2020-08-18 00:37 | ER ---
Nurse's Notes [facility] Name: Omayra Parra Age: 29 yrs Sex: Female : 1990 Arrival Date: 08/17/2020 Time: 20:44 Bed 4 Private MD: Diagnosis: Low back pain;Hypokalemia Presentation: 08/17 21:07 Chief complaint: Patient states: "Lower back pain began a couple of weeks ago that vg1 comes an goes, I've been tired all the time and the bruises on my legs pop up out of no where.". Coronavirus screen: Client denies travel out of the [place] in the last 14 days. Ebola Screen: Patient negative for fever greater than or equal to 101.5 degrees Fahrenheit, and additional compatible Ebola Virus Disease symptoms. Initial Sepsis Screen: Does the patient meet any 2 criteria? No. Patient's initial sepsis screen is negative. Does the patient have a suspected source of infection? No. Patient's initial sepsis screen is negative. Risk Assessment: Do you want to hurt yourself or someone else? Patient reports no desire to harm self or others. Onset of symptoms was August 03, 2020. 21:07 Method Of Arrival: Ambulatory vg1 21:07 Acuity: GAYE 3 vg1 Triage Assessment: 21:10 General: Appears in no apparent distress. comfortable, Behavior is calm, cooperative. vg1 Pain: Complains of pain in back. 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 - Social history:: Smoking status: Patient reports the use of cigarette tobacco products, smokes one-half pack cigarettes per day. Screenin:45 Abuse screen: Denies threats or abuse. Denies injuries from another. Nutritional jm8 screening: No deficits noted. Tuberculosis screening: No symptoms or risk factors identified. Fall Risk None identified. Vital Signs: 21:07 BP 126 / 91; Pulse 99; Resp 16; Temp 97.9; Pulse Ox 100% ; Weight 119.75 kg; Height 5 vg1 ft. 3 in. (160.02 cm); Pain 09/14; 08/18 00:58 BP 124 / 89; Pulse 99; Resp 16; Pulse Ox 100% on R/A; jm8 08/17 21:07 Body Mass Index 46.77 (119.75 kg, 160.02 cm) [facility] ED Course: 08/17 20:44 Patient arrived in ED. 21:10 Triage completed. vg1 21:10 Arm band placed on Patient placed in waiting room, Patient notified of wait time. vg1 22:30 Inserted saline lock: 18 gauge in right antecubital area, using aseptic technique. jm8 23:10 Jasbir Coleman MD is Attending Physician. [facility] 23:45 Patient has correct armband on for positive identification. Bed in low position. Call emmanuelle light in reach. Side rails up X2. 08/18 00:57 No provider procedures requiring assistance completed. IV discontinued. [facility] 01:01 Lumbar Spine (3 Views) XRAY In Process Unspecified. EDMS Administered Medications: 08/17 23:54 Drug: NS 0.9% 1000 ml Route: IV; Rate: 1 bolus; Site: right antecubital; [email or web address] 08/18 00:59 Follow up: IV Status: Completed infusion [facility] Outcome: 00:36 Discharge ordered by . ren 00:57 Discharged to home ambulatory. emmanuelle 00:57 Condition: good 00:57 Discharge instructions given to patient, Instructed on discharge instructions, follow up and referral plans. medication usage, Demonstrated understanding of instructions, follow-up care, medications, Prescriptions given X 2. 00:58 Patient left the ED. Belinda Signatures: Dispatcher [employer] EDVT Jasbir Coleman MD MD cha Garcia, Victoria, RN RN [facility] Rajesh Black, RN RN Julieta Alvarado
[2020-08-18 01:08] VITALS: TEMP 97.9; O2SAT 100
[2020-08-18 01:09] VITALS: BP 124/89
--- NOTE | 2020-08-18 07:42 | RAD REPORT ---
EXAM DESCRIPTION: RAD - Lumbar Spine 3 Views - 08/18/2020 1:01 am CLINICAL HISTORY: PAIN COMPARISON: Lumbar Spine 3 Views dated 09/04/2017 FINDINGS: A three-view lumbar spine examination was performed. Lumbar bodies are normal in height and alignment. No fracture or acute bony process seen. No disc spa ce narrowing. No facet joint abnormality seen. No pars defects identified. IMPRESSION: Negative Lumbar Spine examination. No identifiable changes from 2018 imaging. Concerns for disc herniation, central canal abnormality or occult bone process can be further evaluated with follow-up outpatient MRI imaging.
== END 2020-08-18 00:58 | disposition home or self-care (01) ==
LOC: ER 20:42
DX: E87.6 Hypokalemia (principal); F17.210 Nicotine dependence, cigarettes, uncomplicated; Z88.5 Allergy status to narcotic agent
CPT/HCPCS: 36415; 72100; 80053; 81003; 81015; 81025; 85025; 85610; 87086; 87088; 96360; 99284

== ENCOUNTER 2020-08-23 15:03 | Emergency (ER) | payer SELFPAY ==
--- OUTSIDE RECORDS SUMMARY | 2020-08-23 15:06 | XMS REPORT | Continuity of Care Document ---
:1990 Author Organization [facility] t Address [address] [place] [address] Dr. Mag[address]on [address] [place] [id number] Care Team Providers Name Role Phone Unavailable Unavailable Unavailable Problems This patient has no known problems. Allergies, Adverse Reactions, Alerts This patient has no known allergies or adverse reactions. Medications This patient has no known medications. Procedures This patient has no known procedures. Results This patient has no known results.
[2020-08-23 16:48] LABS: Urine Blood Negative (Negative); Urine Glucose Negative (Negative); Urine Protein Trace (Negative); Urine pH 7.5 (5.0-7.0)
[2020-08-23 18:19] LABS: Absolute Lymphocytes (CBC) 2.3 K/uL (0.7-4.9); Basophils % 0.9 % (0-1.3); Hematocrit 38.9 % (36.0-45.0); Lymphocytes % 23.5 % (15.3-44.8); MPV 6.6 fL (7.6-11.3); RBC Red Blood Cell Count 4.74 M/uL (3.86-4.86)
[2020-08-23] MEDS ORDERED: PIPERACIL/TAZO 3.375 GM VIAL IV ONE (18:26)
[2020-08-23] MEDS ORDERED: NA CHLORIDE 0.9% 100 ML ONE (18:31)
[2020-08-23 18:39] LABS: BUN Blood Urea Nitrogen 14 mg/dL (7-18); Bicarbonate 27 mmol/L (21-32); Glucose Level 82 mg/dL (74-106); Potassium 3.6 mmol/L (3.5-5.1); Sodium Level 141 mmol/L (136-145)
--- NOTE | 2020-08-23 18:52 | RAD REPORT ---
EXAM DESCRIPTION: CT - Soft Tissue Neck W/Contr CLINICAL HISTORY: sublingual swelling Pain and swelling COMPARISON: Soft Tissue Neck W/Contr dated 08/23/[address] scans are performed using dose optimization technique as appropriate and may includ e automated exposure control or mA/KV adjustment according to patient size. FINDINGS: Nasopharyngeal tissues are normal in appearance. Fossa Rosenmller are normal. Parapharyngeal fat triangles are symmetric. Tongue base structures are normal. Epiglottis and aryepiglottic folds are normal. Piriform sinuses are well aerated. The vocal cords are normal in appearance. Normal thyroid gland. Salivary glands are normal in appearance. Mildly prominent lymph nodes are seen throughout the neck bilaterally, not pathologic in appearance. A few mildly prominent submental lymph nodes are present the largest measuring 8 mm. Mild fat strandi ng is seen in the submental fat. No fluid collection evident. Upper lung ambriz are clear. Included intracranial contents are unremarkable. IMPRESSION: Mild inflammatory change reactive adenopathy in the submental fossa noted. There is no f inding to indicate localized fluid collection/ abscess.
[2020-08-23] MEDS ORDERED: VANCOMYCIN/NS 1 gm 1 GM/250 ML BAG IVPB ONE (19:00)
[2020-08-23] MEDS ORDERED: ONDANSETRON 4 MG/2 ML VIAL ONE (19:03)
[2020-08-23] MEDS ORDERED: MEPERIDINE HCL 25 MG/ML SYR ONE (19:03)
--- NOTE | 2020-08-23 19:43 | EDPHYS ---
Physician Documentation [facility] Name: Omayra Parra Age: 29 yrs Sex: Female : 1990 Arrival Date: 08/23/2020 Time: 15:08 Bed 25 Private MD: Rosa Rodriguez ED Physician Jasbir Coleman HPI: 08/23 17:59 This 29 yrs old Female presents to ER via Ambulatory with complaints of Jaw kdr swelling. 17:59 The patient or guardian complains of decreased range of motion, pain, that is acute, kdr swelling, tenderness. The symptoms are located on the submental area. Onset: The symptoms/episode began/occurred acutely, this morning. Context: The problem was sustained at home, The neck injury/problem resulted from from unknown cause. Associated signs and symptoms: Pertinent positives: Abdominal pain, n/v earlier today. The pain does not radiate. Modifying factors: The symptoms are alleviated by nothing. the symptoms are aggravated by movement, pressure. Severity of symptoms: At their worst the symptoms were moderate, in the emergency department the symptoms are unchanged. The patient has experienced a previous episode, last year. The patient has not recently seen a physician, Was admitted for abx last year. 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 Flu vaccine is up to date. - Social history:: Smoking status: Patient reports the use of cigarette tobacco products, smokes one-half pack cigarettes per day. ROS: 17:59 Constitutional: Negative for fever, chills, and weight loss, Eyes: Negative for injury, kdr pain, redness, and discharge, ENT: Negative for injury, pain, and discharge, Cardiovascular: Negative for chest pain, palpitations, and edema, Respiratory: Negative for shortness of breath, cough, wheezing, and pleuritic chest pain, Abdomen/GI: Negative for abdominal pain, nausea, vomiting, diarrhea, and constipation, Back: Negative for injury and pain, : Negative for injury, bleeding, discharge, and swelling, MS/Extremity: Negative for injury and deformity, Skin: Negative for injury, rash, and discoloration, Neuro: Negative for headache, weakness, numbness, tingling, and seizure activity. Psych: Negative for depression, anxiety, suicide ideation, homicidal ideation, and hallucinations, Allergy/Immunology: Negative for hives, rash, and allergies, Endocrine: Negative for neck swelling, polydipsia, polyuria, polyphagia, and marked weight changes, Hematologic/Lymphatic: Negative for swollen nodes, abnormal bleeding, and unusual bruising. 17:59 Neck: Positive for mass, pain with movement, pain at rest, swelling, tenderness, of the submental area, Negative for 17:59 Abdomen/GI: Positive for abdominal pain, nausea, vomiting. Exam: 17:59 Constitutional: This is a well developed, well nourished patient who is awake, alert, kdr and in no acute distress. Head/Face: Normocephalic, atraumatic. Eyes: Pupils equal round and reactive to light, extra-ocular motions intact. Lids and lashes normal. Conjunctiva and sclera are non-icteric and not injected. Cornea within normal limits. Periorbital areas with no swelling, redness, or edema. ENT: Nares patent. No nasal discharge, no septal abnormalities noted. Tympanic membranes are normal and external auditory canals are clear. Oropharynx with no redness, swelling, or masses, exudates, or evidence of obstruction, uvula midline. Mucous membranes moist. Chest/axilla: Normal chest wall appearance and motion. Nontender with no deformity. No lesions are appreciated. Cardiovascular: Regular rate and rhythm with a normal S1 and S2. No gallops, murmurs, or rubs. Normal PMI, no JVD. No pulse deficits. Respiratory: Lungs have equal breath sounds bilaterally, clear to auscultation and percussion. No rales, rhonchi or wheezes noted. No increased work of breathing, no retractions or nasal flaring. Abdomen/GI: Soft, non-tender, with normal bowel sounds. No distension or tympany. No guarding or rebound. No evidence of tenderness throughout. Back: No spinal tenderness. No costovertebral tenderness. Full range of motion. 17:59 Neck: External neck: mass, that is moderate-sized, of the submental area. Vital Signs: 15:51 BP 125 / 68; Pulse 88; Resp 18 S; Temp 98.5(O); Pulse Ox 100% ; Weight 119.75 kg (R); ca1 Height 5 ft. 3 in. (160.02 cm) (R); Pain 10/10; 19:51 BP 146 / 81; Pulse 75; Resp 16 S; Temp 97.8(O); Pulse Ox 99% on R/A; Pain 8/10; bb 15:51 Body Mass Index 46.77 (119.75 kg, 160.02 cm) ca1 MDM: 17:59 Data reviewed: vital signs, nurses notes, lab test result(s), radiologic studies. kdr Counseling: I had a detailed discussion with the patient and/or guardian regarding: the historical points, exam findings, and any diagnostic results supporting the discharge/admit diagnosis, lab results, radiology results. 19:32 Patient medically screened. [facility] 08/23 16:48 Order name: Urine Dipstick-Ancillary; Complete Time: 18:38 EDWI 08/23 16:54 Order name: Urine --Ancillary (enter results) md 08/23 17:58 Order name: CBC with Diff; Complete Time: 18:38 kdr 08/23 17:58 Order name: Chem 7; Complete Time: 18:55 kdr 08/23 17:58 Order name: CT Soft Tissue Neck W/contr; Complete Time: 18:55 kdr Administered Medications: 18:30 Drug: Zosyn (piperacillin-tazobactam) 3.375 grams Route: IVPB; Infused Over: 60 mins; aa5 Site: left wrist; 18:49 Follow up: Response: No adverse reaction aa5 19:47 Follow up: IV Status: Completed infusion; IV Intake: 100ml bb 18:48 Drug: Demerol (meperidine) 25 mg Route: IVP; Site: left wrist; aa5 19:49 Follow up: Response: No adverse reaction; Pain is decreased; RASS: Drowsy (-1) bb 18:48 Not Given (Patient Refused): Zofran (Ondansetron) 4 mg IVP once; over 2 minutes aa5 19:40 Not Given (Duplicate Order): vancoMYCIN 1 grams IVPB once over 2 hrs ren 19:48 Drug: Clindamycin 900 mg Route: IVPB; Infused Over: 30 mins; Site: left wrist; bb 20:33 Follow up: IV Status: Completed infusion; IV Intake: 100ml bb 19:57 Drug: Phenergan (promethazine) 12.5 mg Route: IVP; Site: left wrist; bb 20:33 Follow up: Response: No adverse reaction bb Disposition Summary: 08/23/20 19:42 Discharge Ordered Location: Home ren Problem: new ren Symptoms: have improved ren Condition: Stable ren Diagnosis - Enlarged lymph nodes, unspecified - submental ren Followup: ren - With: Rosa Rodriguez - When: 1 - 2 days - Reason: Recheck today's complaints, Continuance of care, Re-evaluation by your physician Followup: ren - With: Emely Bolanos MD - When: 2 - 3 days - Reason: Recheck today's complaints, Continuance of care, Re-evaluation by your physician Discharge Instructions: - Discharge Summary Sheet ren - Lymphadenopathy ren Forms: - Medication Reconciliation Form ren - Thank You Letter ren - Antibiotic Education [facility] - Prescription Opioid Use [facility] Prescriptions: - Clindamycin HCl 300 mg Oral Capsule - take 1 capsule by ORAL route every 6 hours for 10 days; 40 capsule; Refills: 0, [facility] Product Selection Permitted - Ibuprofen 600 mg Oral Tablet - take 1 tablet by ORAL route every 6 hours As needed take with food; 30 tablet; [facility] Refills: 0, Product Selection Permitted - promethazine 25 mg Oral Tablet - take 1 tablet by ORAL route every 6 hours As needed; 20 tablet; Refills: 0, [facility] Product Selection Permitted Signatures: Dispatcher [employer] Jasbir Nguyen MD MD cha Rittger, Kevin, MD MD kdr Ballard, Brenda RN RN Maliha Ospina RN RN aa5 Jocelyn Sanchez RN RN ca1
--- NOTE | 2020-08-23 19:43 | ER ---
Nurse's Notes [facility] Name: Omayra Parra Age: 29 yrs Sex: Female : 1990 Arrival Date: 08/23/2020 Time: 15:08 Bed 25 Private MD: Rosa Rodriguez Diagnosis: Enlarged lymph nodes, unspecified-submental Presentation: 08/23 15:51 Chief complaint: Patient states: I woke up this morning with abdl cramping, then had ca1 diarrhea. I also noticed my jaw was swollen couple days ago but today it has been bigger. I had the same swelling last year and they admitted me and put me on IV antibiotics. Coronavirus screen: Client denies travel out of the [place] in the last 14 days. shortness of breath, Client presents with at least one sign or symptom that may indicate coronavirus-19. Standard/surgical mask placed on the client. Provider contacted for isolation considerations. Ebola Screen: Patient negative for fever greater than or equal to 101.5 degrees Fahrenheit, and additional compatible Ebola Virus Disease symptoms Patient denies exposure to infectious person. Patient denies travel to an Ebola-affected area in the 21 days before illness onset. No symptoms or risks identified at this time. Initial Sepsis Screen: Does the patient meet any 2 criteria? No. Patient's initial sepsis screen is negative. Does the patient have a suspected source of infection? No. Patient's initial sepsis screen is negative. Risk Assessment: Do you want to hurt yourself or someone else? Patient reports no desire to harm self or others. Onset of symptoms was August 21, 2020. 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 Flu vaccine is up to date. - Social history:: Smoking status: Patient reports the use of cigarette tobacco products, smokes one-half pack cigarettes per day. Screenin:00 Abuse screen: Denies threats or abuse. Nutritional screening: No deficits noted. aa5 Tuberculosis screening: No symptoms or risk factors identified. Fall Risk None identified. Assessment: 17:50 General: Appears comfortable, Behavior is calm, cooperative. Pain: Complains of pain in aa5 chin, right jaw and left jaw Pain currently is 10 out of 10 on a pain scale. Quality of pain is described as tender, Is continuous. Neuro: Level of Consciousness is awake, alert, obeys commands, Oriented to person, place, time, situation. Cardiovascular: Heart tones S1 S2 present Rhythm is regular. Respiratory: Airway is patent Respiratory effort is even, unlabored, Respiratory pattern is regular, symmetrical. GI: Abdomen is round. : No signs and/or symptoms were reported regarding the genitourinary system. EENT: No signs and/or symptoms were reported regarding the EENT system. Derm: Skin is dry, Skin is normal, Skin temperature is warm. Musculoskeletal: Range of motion: intact in all extremities. 18:17 Reassessment: Pt to CT scan via stretcher . aa5 19:49 Reassessment: Pt is awake and oriented x 3, resp unlabored, IV site intact, patent, bb fluids infusing, Dr Coleman at bedside for discussion of findings and recommendations pt verbalized understanding of and agrees to plan of care. Pt will be discharged on completion of antibiotics. 20:33 Reassessment: Patient is alert, oriented x 3, equal unlabored respirations, skin bb warm/dry/pink. pt verbalized understanding of and agrees to plan of care discharge instructions given pt ambulated with steady gait to exit accompanied by family. Vital Signs: 15:51 BP 125 / 68; Pulse 88; Resp 18 S; Temp 98.5(O); Pulse Ox 100% ; Weight 119.75 kg (R); ca1 Height 5 ft. 3 in. (160.02 cm) (R); Pain 10/10; 19:51 BP 146 / 81; Pulse 75; Resp 16 S; Temp 97.8(O); Pulse Ox 99% on R/A; Pain 8/10; bb 15:51 Body Mass Index 46.77 (119.75 kg, 160.02 cm) ca1 ED Course: 15:08 Patient arrived in ED. mr 15:09 Rosa Rodriguez is Private Physician. mr 15:54 Triage completed. ca1 15:55 Arm band placed on right wrist. ca1 17:05 Urine collected: clean catch specimen, tom colored. 5 17:45 Patient has correct armband on for positive identification. Bed in low position. Call aa5 light in reach. Side rails up X 1. Pulse ox on. NIBP on. 17:48 Anastacio Valera MD is Attending Physician. kdr 18:13 Maliha Ramirez, SUSAN is Primary Nurse. aa5 18:15 Initial lab(s) drawn, by me, sent to lab. Inserted saline lock: 20 gauge in left wrist, aa5 using aseptic technique. Blood collected. 18:23 CT Soft Tissue Neck W/contr In Process Unspecified. EDMS 19:00 Report given to SUSAN Jesus. aa5 19:32 Attending Physician role handed off by Anastacio Valera MD ren 19:32 Jasbir Coleman MD is Attending Physician. ren 19:41 Rosa Rodriguez is Referral Physician. ren 19:41 Emely Bolanos MD is Referral Physician. ren 19:52 No provider procedures requiring assistance completed. bb 20:34 IV discontinued, intact, bleeding controlled, No redness/swelling at site. Pressure bb dressing applied. Administered Medications: 18:30 Drug: Zosyn (piperacillin-tazobactam) 3.375 grams Route: IVPB; Infused Over: 60 mins; aa5 Site: left wrist; 18:49 Follow up: Response: No adverse reaction aa5 19:47 Follow up: IV Status: Completed infusion; IV Intake: 100ml bb 18:48 Drug: Demerol (meperidine) 25 mg Route: IVP; Site: left wrist; aa5 19:49 Follow up: Response: No adverse reaction; Pain is decreased; RASS: Drowsy (-1) bb 18:48 Not Given (Patient Refused): Zofran (Ondansetron) 4 mg IVP once; over 2 minutes aa5 19:40 Not Given (Duplicate Order): vancoMYCIN 1 grams IVPB once over 2 hrs ren 19:48 Drug: Clindamycin 900 mg Route: IVPB; Infused Over: 30 mins; Site: left wrist; bb 20:33 Follow up: IV Status: Completed infusion; IV Intake: 100ml bb 19:57 Drug: Phenergan (promethazine) 12.5 mg Route: IVP; Site: left wrist; bb 20:33 Follow up: Response: No adverse reaction bb Intake: 19:47 IV: 100ml; Total: 100ml. bb 20:33 IV: 100ml; Total: 200ml. bb Outcome: 19:42 Discharge ordered by . ren 20:34 Discharged to home ambulatory, with family. bb 20:34 Condition: stable 20:34 Discharge instructions given to patient, Instructed on discharge instructions, follow up and referral plans. medication usage, Demonstrated understanding of instructions, follow-up care, medications, Prescriptions given X 3. 20:34 Patient left the ED. bb Signatures: Dispatcher [employer] EDMS Jasbir Coleman MD MD cha Rittger, Kevin, MD MD kdr Rivera, Rosa mr Ann Marie Marquez, RN RN Maliha Ospina, RN RN [email or web address] Shraddha Gilbert [facility] Jocelyn Sanchez RN RN ca1
[2020-08-23] MEDS ORDERED: CLINDAMYCIN 900MG/D5W 900 MG/50 ML IVPB IV ONE (20:01)
[2020-08-23] MEDS ORDERED: PROMETHAZINE INJ 25 MG/ML AMP ONE (20:26)
[2020-08-23 21:26] VITALS: BP 146/81; TEMP 97.8; O2SAT 99
== END 2020-08-23 20:34 | disposition home or self-care (01) ==
LOC: ER 15:03
DX: R59.0 Localized enlarged lymph nodes (principal); F17.210 Nicotine dependence, cigarettes, uncomplicated; Z88.5 Allergy status to narcotic agent
CPT/HCPCS: 36415; 70491; 80048; 81003; 81025; 82565; 85025; 96365; 96367; 96375; 99284; J2175; J2405; J2543; J2550; J3370; Q9967

== ENCOUNTER 2020-08-28 00:42 | Emergency (ER) | payer SELFPAY ==
--- OUTSIDE RECORDS SUMMARY | 2020-08-28 00:45 | XMS REPORT | Continuity of Care Document ---
:1990 Author Organization [facility] t Address [address] [place] [address] Care Team Providers Name Role Phone Myron Galvan MD Attending Clinician Fabrizio DAVIS Attending Clinician Damon NUNO Attending Clinician Estrella NUNO Attending Clinician Doctor Unassigned, Name Attending Clinician Unavailable Estrella NUNO Admitting Clinician Problems This patient has no known problems. Allergies, Adverse Reactions, Alerts This patient has no known allergies or adverse reactions. Medications This patient has no known medications. Procedures This patient has no known procedures. Encounters Start End Encounter Admission Attending Care Care Encounter Source Date/Time Date/Time Type Type Clinicians Facility Department ID 2020-08-27 2020-08-27 Emergency HENNY Galvan [id number] 21:50:00 23:10:00 Kanika Calix [id number] [place] [id number] [place] [id number] 2020-08-27 2020-08-27 Transition Nikko Dinh [id number] 00:00:00 00:00:00 of Care Prisca Fox [id number] [place] [id number] 2020-08-24 2020-08-26 [facility] Chavo Jose [facility] [id number] 14:12:00 13:37:00 Encounter Rojelio De La Rosa [id number] [place] [id number] [place] [id number] 2020-08-24 2020-08-24 Orders Doctor BERTHA [id number] 00:00:00 00:00:00 Only Unassigned, CRISELDA [id number] [place] [facility] [id number] Results This patient has no known results.
--- NOTE | 2020-08-28 02:54 | ER ---
Nurse's Notes [facility] Name: Omayra Parra Age: 29 yrs Sex: Female : 1990 Arrival Date: 08/28/2020 Time: 00:43 Bed Waiting Private MD: Rosa Rodriguez Diagnosis: Presentation: 08/28 01:56 Chief complaint: Patient states: has enlarged lymph nodes under chin she was discharged bb from [facility] but symptoms are worse and she is having chest and pelvic pain. Coronavirus screen: At this time, the client does not indicate any symptoms associated with coronavirus-19. Ebola Screen: No symptoms or risks identified at this time. Initial Sepsis Screen: Does the patient meet any 2 criteria? No. Patient's initial sepsis screen is negative. Does the patient have a suspected source of infection? No. Patient's initial sepsis screen is negative. Risk Assessment: Do you want to hurt yourself or someone else? Patient reports no desire to harm self or others. Onset of symptoms is unknown. 01:56 Method Of Arrival: Ambulatory bb 01:56 Acuity: GAYE 3 bb 02:53 Note notified by registration that pt left the ED. 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 - Social history:: Smoking status: Patient denies any tobacco usage or history of. Vital Signs: 01:56 BP 125 / 61; Pulse 68; Resp 16 S; Temp 97.9(O); Pulse Ox 99% on R/A; Weight 117.93 kg bb (R); Height 5 ft. 3 in. (160.02 cm) (R); Pain 10/10; 01:56 Body Mass Index 46.06 (117.93 kg, 160.02 cm) bb ED Course: 00:43 Patient arrived in ED. am2 00:43 Rosa Rodriguez is Private Physician. am2 01:58 Triage completed. bb 01:58 Arm band placed on Patient placed in waiting room, Patient notified of wait time. bb Administered Medications: No medications were administered Outcome: 02:54 Patient left the ED. bb Signatures: Ann Marie Marquez, RN RN Mary Nuñez
[2020-08-28 02:59] VITALS: BP 125/61; TEMP 97.9; O2SAT 99
== END 2020-08-28 02:54 | disposition left against medical advice (07) ==
LOC: ER 00:42
DX: Z53.21 Procedure and treatment not carried out due to patient leaving prior to being seen by health care provider (principal)
CPT/HCPCS: 99281

== ENCOUNTER 2020-08-28 12:57 | Emergency (ER) | payer SELFPAY ==
--- OUTSIDE RECORDS SUMMARY | 2020-08-28 13:00 | XMS REPORT | Continuity of Care Document ---
:1990 Author Organization [facility] t Address [address] [place] [address] Care Team Providers Name Role Phone Myron [...] Department ID 2020-08-27 2020-08-27 Emergency HENNY Galvan [id number] 21:50:00 23:10:00 Kanika Calix [id number] [place] [id number] [place] [id number] 2020-08-27 2020-08-27 Transition Nikko Dinh [id number] 00:00:00 00:00:00 of Care Prisca Fox [id number] [place] [id number] 2020-08-24 2020-08-26 [facility] Chavo Jose [facility] [id number] 14:12:00 13:37:00 Encounter Rojelio De La Rosa [id number] [place] [id number] [place] [id number] 2020-08-24 2020-08-24 Orders Doctor BERTHA [id number] 00:00:00 00:00:00 Only Unassigned, CRISELDA [id number] [place] [facility] [id number] Results This patient has no known results.
[2020-08-28 15:38] LABS: Urine Blood Negative (Negative); Urine Glucose Negative (Negative); Urine Protein Trace (Negative); Urine Specific Gravity >=1.030 (1.005-1.030); Urine pH 5.5 (5.0-7.0)
[2020-08-28 15:46] LABS: Basophils % 0.9 % (0-1.3); Hematocrit 39.2 % (36.0-45.0); Lymphocytes % 22.9 % (15.3-44.8); MPV 6.6 fL (7.6-11.3); RBC Red Blood Cell Count 4.79 M/uL (3.86-4.86)
--- NOTE | 2020-08-28 15:58 | RAD REPORT ---
EXAM DESCRIPTION: Lucita Single View08/28/2020 3:46 pm CLINICAL HISTORY: Cough COMPARISON: 2019 FINDINGS: The lungs appear clear of acute infiltrate. The heart is borderline enlarged IMPRESSION: No acute abnormalities displayed
[2020-08-28 16:05] LABS: ALT/SGPT 30 U/L (12-78); AST/SGOT 20 U/L (15-37); Albumin 3.8 g/dL (3.4-5.0); Alkaline Phosphatase 77 U/L (45-117); BUN Blood Urea Nitrogen 13 mg/dL (7-18); Bicarbonate 25 mmol/L (21-32); Bilirubin Direct 0.1 mg/dL (0-0.2); Bilirubin Total 0.7 mg/dL (0.2-1.0); Glucose Level 87 mg/dL (74-106); Lipase 45 U/L (73-393); Magnesium 2.5 mg/dL (1.8-2.4); Potassium 3.9 mmol/L (3.5-5.1); Protein, Total 7.6 g/dL (6.4-8.2); Sodium Level 139 mmol/L (136-145); Troponin (Emerg Dept Use Only) < 0.02 ng/mL (0.0-0.045)
[2020-08-28] MEDS ORDERED: NA CHLORIDE 0.9% 1,000 ML ONE (16:18)
[2020-08-28] MEDS ORDERED: DOXYCYCLINE 100 MG CAP PO ONE (16:59)
[2020-08-28] MEDS ORDERED: ASPIRIN 81 MG CHEWABLE TABLET ONE (16:59)
[2020-08-28] MEDS ORDERED: MUPIROCIN 2% OINT 22GM TUBE TOP ONE (16:59)
--- NOTE | 2020-08-28 19:06 | EDPHYS ---
Physician Documentation [facility] Name: Omayra Parra Age: 29 yrs Sex: Female : 1990 Arrival Date: 08/28/2020 Time: 12:59 Bed 19 Private MD: ED Physician Jasbir Coleman HPI: 08/28 16:21 This 29 yrs old Female presents to ER via Ambulatory with complaints of ren Pelvic Pain, Chest Pain. 16:21 The patient or guardian reports chest pain that is located primarily in the substernal ren area. The pain does not radiate. Associated signs and symptoms: Pertinent positives: cough. The chest pain is described as aching. Duration: The patient or guardian reports a single episode, that is still ongoing. Modifying factors: The symptoms are alleviated by remaining still, the symptoms are aggravated by breathing, cough, movement, palpation of area. Severity of pain: At its worst the pain was mild in the emergency department the pain is unchanged. The patient has experienced similar episodes in the past, several times. 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 - Social history:: Smoking status: Patient reports the use of cigarette tobacco products, Quit one week ago. - Family history:: not pertinent. ROS: 16:21 Constitutional: Negative for fever, chills, and weight loss, Eyes: Negative for injury, ren pain, redness, and discharge, ENT: Negative for injury, pain, and discharge, Neck: Negative for injury, pain, and swelling, Respiratory: Negative for shortness of breath, cough, wheezing, and pleuritic chest pain, Back: Negative for injury and pain, : Negative for injury, bleeding, discharge, and swelling, MS/Extremity: Negative for injury and deformity, Skin: Negative for injury, rash, and discoloration, Neuro: Negative for headache, weakness, numbness, tingling, and seizure, Psych: Negative for depression, anxiety, suicide ideation, homicidal ideation, and hallucinations, Allergy/Immunology: Negative for hives, rash, and allergies, Endocrine: Negative for neck swelling, polydipsia, polyuria, polyphagia, and marked weight changes, Hematologic/Lymphatic: Negative for swollen nodes, abnormal bleeding, and unusual bruising. 16:21 Cardiovascular: Positive for chest pain. 16:21 Abdomen/GI: Positive for abdominal pain. Exam: 16:21 Constitutional: This is a well developed, well nourished patient who is awake, alert, ren and in no acute distress. Head/Face: Normocephalic, atraumatic. Eyes: Pupils equal round and reactive to light, extra-ocular motions intact. Lids and lashes normal. Conjunctiva and sclera are non-icteric and not injected. Cornea within normal limits. Periorbital areas with no swelling, redness, or edema. ENT: Nares patent. No nasal discharge, no septal abnormalities noted. Tympanic membranes are normal and external auditory canals are clear. Oropharynx with no redness, swelling, or masses, exudates, or evidence of obstruction, uvula midline. Mucous membranes moist. Neck: Trachea midline, no thyromegaly or masses palpated, and no cervical lymphadenopathy. Supple, full range of motion without nuchal rigidity, or vertebral point tenderness. No Meningismus. Cardiovascular: Regular rate and rhythm with a normal S1 and S2. No gallops, murmurs, or rubs. Normal PMI, no JVD. No pulse deficits. Respiratory: Lungs have equal breath sounds bilaterally, clear to auscultation and percussion. No rales, rhonchi or wheezes noted. No increased work of breathing, no retractions or nasal flaring. Back: No spinal tenderness. No costovertebral tenderness. Full range of motion. Skin: Warm, dry with normal turgor. Normal color with no rashes, no lesions, and no evidence of cellulitis. MS/ Extremity: Pulses equal, no cyanosis. Neurovascular intact. Full, normal range of motion. Neuro: Awake and alert, GCS 15, oriented to person, place, time, and situation. Cranial nerves II-XII grossly intact. Motor strength 5/5 in all extremities. Sensory grossly intact. Cerebellar exam normal. Normal gait. 16:21 Chest/axilla: Inspection: normal, no acute changes, Palpation: tenderness, that is mild, of the anterior aspect of right upper chest, anterior aspect of left upper chest, right breast and left breast, Breasts: are normal. 16:21 Cardiovascular: Rate: normal, Rhythm: regular, Pulses: no pulse deficits are appreciated, Heart sounds: normal, normal S1and S2, no S3 or S4, no murmur, no rub, no gallop, Edema: is not appreciated, JVD: is not appreciated. 16:21 ECG was reviewed by the Attending Physician. Vital Signs: 14:26 Pulse 81; Resp 20; Temp 98.2(O); Pulse Ox 99% on R/A; Weight 116.57 kg (M); Height 5 kg ft. 4 in. (162.56 cm) (R); Pain 9/10; 16:19 BP 125 / 82; Pulse 71; Resp 17; Pulse Ox 100% on R/A; ap3 18:05 BP 117 / 69; Pulse 69; Resp 17; Pulse Ox 100% on R/A; ap3 14:26 Body Mass Index 44.11 (116.57 kg, 162.56 cm) kg MDM: 14:44 Patient medically screened. ren 16:27 Differential diagnosis: abnormal EKG, acute myocardial infarction, acute pericarditis, ren anxiety, coronary artery disease congestive heart failure cholecystitis, Cholelithiasis costochondritis, esophagitis, hiatal hernia, pancreatitis, peptic ulcer disease, pneumonia, pulmonary embolus, stable angina, unstable angina. HEART Score: History: Slightly Suspicious (0), ECG: Non specific repolarization disturbance / LBTB / PM (1), Age: < or = 45 years (0), Risk Factors: No Risk Factors Known (0), Troponin: < or = 1 x Normal Limit (0), Total Score = 0. The patient's deep vein thrombosis risk score was calculated as follows: Total Score: 0. This patient was found to be at low risk for a deep vein thrombosis by using the Well's assessment criteria. The patient's pulmonary embolism risk score was calculated as follows: Total Score: 0-2 points. This patient was found to be at low risk for a pulmonary embolism by using the Well's assessment criteria. TIM Risk Score: TOTAL SCORE = 0. Data reviewed: vital signs, nurses notes, lab test result(s), EKG, radiologic studies, CT scan, plain films. Data interpreted: manager monitoring: rate is 71 beats/min, rhythm is regular, Pulse oximetry: on room air is 100 %. Test interpretation: by ED physician or midlevel provider: ECG, plain radiologic studies. Counseling: I had a detailed discussion with the patient and/or guardian regarding: the historical points, exam findings, and any diagnostic results supporting the discharge/admit diagnosis, lab results, radiology results, the need for outpatient follow up, for definitive care, a intelligence director, an ENT specialist, a family practitioner. 08/28 14:47 Order name: Basic Metabolic Panel [facility] 08/28 14:47 Order name: CBC with Diff [facility] 08/28 14:47 Order name: LFT's [facility] 08/28 14:47 Order name: Magnesium; Complete Time: 16:20 [facility] 08/28 14:47 Order name: Troponin (emerg Dept Use Only); Complete Time: 16:20 [facility] 08/28 14:47 Order name: Lipase; Complete Time: 16:20 [facility] 08/28 14:47 Order name: Basic Metabolic Panel; Complete Time: 16:20 [facility] 08/28 14:47 Order name: CBC with Automated Diff; Complete Time: 16:20 [facility] 08/28 14:47 Order name: Liver (Hepatic) Function; Complete Time: 16:20 [facility] 08/28 15:37 Order name: Urine Dipstick-Ancillary; Complete Time: 15:57 [facility] 08/28 15:52 Order name: Urine --Ancillary (enter results); Complete Time: 19:05 08/28 16:22 Order name: LAB Add On 08/28 18:51 Order name: D-Dimer; Complete Time: 19:05 [facility] 08/28 14:47 Order name: XRAY Chest (1 view); Complete Time: 16:20 [facility] 08/28 14:47 Order name: EKG; Complete Time: 14:47 [facility] 08/28 14:47 Order name: Cardiac monitoring; Complete Time: 15:45 [facility] 08/28 14:47 Order name: EKG - Nurse/Tech; Complete Time: 14:50 [facility] 08/28 14:47 Order name: IV Saline Lock; Complete Time: 15:35 [facility] 08/28 14:47 Order name: Labs collected and sent; Complete Time: 15:35 [facility] 08/28 14:47 Order name: O2 Per Protocol; Complete Time: 15:45 [facility] 08/28 14:47 Order name: O2 Sat Monitoring; Complete Time: 15:45 [facility] 08/28 14:47 Order name: Urine Dipstick-Ancillary (obtain specimen); Complete Time: 15:45 [facility] 08/28 14:47 Order name: Urine Test (obtain specimen); Complete Time: 15:55 [facility] EC:21 Rate is 82 beats/min. Rhythm is regular. QRS [place] is Normal. MO interval is normal. QRS ren interval is normal. QT interval is normal. No Q waves. T waves are Inverted in leads II, III, aVF. No ST changes noted. Clinical impression: NSR w/ Non-specific ST/T Changes and No evidence of ischemia. Interpreted by me. Reviewed by me. Administered Medications: 16:15 Drug: NS 0.9% 500 ml Route: IV; Rate: bolus; Site: right upper arm; ap3 19:19 Follow up: Response: No adverse reaction; IV Status: Completed infusion; IV Intake: ap3 1000ml 16:45 Drug: Doxycycline 100 mg Route: PO; ap3 19:19 Follow up: Response: No adverse reaction ap3 16:45 Drug: Bactroban (mupirocin) Ointment 2 % 1 application Route: Topical; Site: chin; ap3 19:18 Follow up: Response: No adverse reaction ap3 16:45 Drug: Aspirin 162 mg Route: PO; ap3 19:18 Follow up: Response: No adverse reaction ap3 Disposition Summary: 08/28/20 19:05 Discharge Ordered Location: Home ren Problem: new ren Symptoms: have improved ren Condition: Stable ren Diagnosis - Chest pain, unspecified ren - Cutaneous abscess of face - resolving ren - Polycystic ovarian syndrome ren Followup: ren - With: Private Physician - When: 2 - 3 days - Reason: Recheck today's complaints, Continuance of care, Re-evaluation by your physician Followup: ren - With: - When: 2 - 3 days - Reason: Recheck today's complaints, Re-evaluation by your physician Followup: ren - With: - When: 2 - 3 days - Reason: Recheck today's complaints, Re-evaluation by your physician Discharge Instructions: - Discharge Summary Sheet ren - Skin Abscess ren - Nonspecific Chest Pain, Adult ren - Chest Wall Pain ren - Ovarian Cyst ren - Skin Abscess, Aegv-rf-Rany ren - Chest Wall Pain, Qwex-td-Ftdv ren - Nonspecific Chest Pain, Adult, Bvjt-yg-Dzym ren - Ovarian Cyst, Tojd-mi-Hdys ren - Polycystic Ovarian Syndrome ren - Aspirin and Your Heart ren Forms: - Medication Reconciliation Form ren - Thank You Letter ren - Antibiotic Education ren - Prescription Opioid Use ren Prescriptions: - mupirocin 2 % Topical ointment - apply 1 application by TOPICAL route 3 times per day for 14 days; 15 gram; ren Refills: 0, Product Selection Permitted - Ibuprofen 600 mg Oral Tablet - take 1 tablet by ORAL route every 6 hours As needed take with food; 21 tablet; ren Refills: 0, Product Selection Permitted - Pepcid 20 mg Oral Tablet - take 1 tablet by ORAL route every 12 hours for 10 days; 30 tablet; Refills: 0, [facility] Product Selection Permitted - Doxycycline Hyclate 100 mg Oral Tablet - take 1 tablet by ORAL route every 12 hours; 20 tablet; Refills: 0, Product ren Selection Permitted Signatures: Dispatcher [employer] EDMS Jasbir Coleman MD MD cha Prokisch, Amanda RN RN ap3 Renuka Yin RN RN kg Corrections: (The following items were deleted from the chart) 14:32 14:30 Allergies: Morphine; mild intolerance; kg kg 14:32 14:30 Home Meds: None; kg kg 18:47 18:14 Urine Culture ordered. EDWV EDMS
--- NOTE | 2020-08-28 19:06 | ER ---
Nurse's Notes [facility] Name: Omayra Parra Age: 29 yrs Sex: Female : 1990 Arrival Date: 08/28/2020 Time: 12:59 Bed 19 Private MD: Diagnosis: Chest pain, unspecified;Cutaneous abscess of face-resolving;Polycystic ovarian syndrome Presentation: 08/28 14:26 Chief complaint: Patient states: Pelvic pain and chest pain x 1 week. Coronavirus kg screen: Client denies travel out of the [place] in the last 14 days. At this time, unable to obtain information related to travel outside the [place] At this time, the client does not indicate any symptoms associated with coronavirus-19. Ebola Screen: Patient negative for fever greater than or equal to 101.5 degrees Fahrenheit, and additional compatible Ebola Virus Disease symptoms Patient denies exposure to infectious person. Patient denies travel to an Ebola-affected area in the 21 days before illness onset. Initial Sepsis Screen: Does the patient meet any 2 criteria? No. Patient's initial sepsis screen is negative. Does the patient have a suspected source of infection? No. Patient's initial sepsis screen is negative. Risk Assessment: Do you want to hurt yourself or someone else? Patient reports no desire to harm self or others. Onset of symptoms was August 21, 2020. 14:26 Method Of Arrival: Ambulatory kg 14:26 Acuity: GAYE 3 kg Triage Assessment: 14:29 General: Appears in no apparent distress. Behavior is calm, cooperative, appropriate kg for age, quiet. Pain: Complains of pain in anterior aspect of left upper chest, xiphoid area and mid-sternal area Pain radiates to right lower quadrant and left lower quadrant Pain currently is 9 out of 10 on a pain scale. at worst was 10 out of 10 on a pain scale. level that patient reports is acceptable is 5 out of 10 on a pain scale. Quality of pain is described as pressure, sharp, squeezing. Cardiovascular: Reports chest pain. 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 - Social history:: Smoking status: Patient reports the use of cigarette tobacco products, Quit one week ago. - Family history:: not pertinent. Screenin:28 Abuse screen: Denies threats or abuse. Denies injuries from another. Nutritional kg screening: No deficits noted. Tuberculosis screening: No symptoms or risk factors identified. Fall Risk None identified. No fall in past 12 months (0 pts). No IV (0 pts). Ambulatory Aid- None/Bed Rest/Nurse Assist (0 pts). Gait- Normal/Bed Rest/Wheelchair (0 pts) Mental Status- Oriented to own ability (0 pts). Total Arias Fall Scale indicates No Risk (0-24 pts). Assessment: 14:33 Pain: Pain began one week ago. kg 16:16 General: Appears in no apparent distress. uncomfortable, Behavior is calm, cooperative, ap3 appropriate for age. Pain: Complains of pain in abdomen and left lower quadrant and right lower quadrant and chest and mid-sternal area and xiphoid area and anterior aspect of left upper chest Pain does not radiate. Quality of pain is described as heavy, pressure, Pain began 2-3 days ago. Neuro: Level of Consciousness is awake, alert, obeys commands, Oriented to person, place, time, situation, Appropriate for age Moves all extremities. Gait is steady, Speech is normal. Cardiovascular: Capillary refill < 3 seconds Patient's skin is warm and dry. Respiratory: Airway is patent Respiratory effort is even, unlabored, Respiratory pattern is regular, symmetrical. GI: Abdomen is round Abd is soft and non tender X 4 quads. : No signs and/or symptoms were reported regarding the genitourinary system. EENT:. Derm: Wound noted chin. 18:36 Reassessment: Patient and/or family updated on plan of care and expected duration. Pain ap3 level reassessed. Patient is alert, oriented x 3, equal unlabored respirations, skin warm/dry/pink. Vital Signs: 14:26 Pulse 81; Resp 20; Temp 98.2(O); Pulse Ox 99% on R/A; Weight 116.57 kg (M); Height 5 kg ft. 4 in. (162.56 cm) (R); Pain 9/10; 16:19 BP 125 / 82; Pulse 71; Resp 17; Pulse Ox 100% on R/A; ap3 18:05 BP 117 / 69; Pulse 69; Resp 17; Pulse Ox 100% on R/A; ap3 14:26 Body Mass Index 44.11 (116.57 kg, 162.56 cm) kg ED Course: 12:59 Patient arrived in ED. cl3 14:28 Triage completed. kg 14:28 Patient has correct armband on for positive identification. kg 14:29 Arm band placed on. kg 14:44 Jasbir Coleman MD is Attending Physician. ren 14:50 Mary Lau, SUSAN is Primary Nurse. ap3 15:35 Initial lab(s) drawn, by me, sent to lab. Inserted saline lock: 22 gauge in right upper em1 arm, using aseptic technique. Blood collected. 15:46 XRAY Chest (1 view) In Process Unspecified. EDMS 16:18 Pulse ox on. NIBP on. Door closed. Noise minimized. ap3 16:18 Patient maintains SpO2 saturation greater than 95% on room air. ap3 19:05 Tapan Grover MD is Referral Physician. ren 19:05 Emely Bolanos MD is Referral Physician. ren 19:18 No provider procedures requiring assistance completed. IV discontinued, intact, ap3 bleeding controlled, No redness/swelling at site. Pressure dressing applied. Administered Medications: 16:15 Drug: NS 0.9% 500 ml Route: IV; Rate: bolus; Site: right upper arm; ap3 19:19 Follow up: Response: No adverse reaction; IV Status: Completed infusion; IV Intake: ap3 1000ml 16:45 Drug: Doxycycline 100 mg Route: PO; ap3 19:19 Follow up: Response: No adverse reaction ap3 16:45 Drug: Bactroban (mupirocin) Ointment 2 % 1 application Route: Topical; Site: chin; ap3 19:18 Follow up: Response: No adverse reaction ap3 16:45 Drug: Aspirin 162 mg Route: PO; ap3 19:18 Follow up: Response: No adverse reaction ap3 Intake: 19:19 IV: 1000ml; Total: 1000ml. ap3 Outcome: 19:05 Discharge ordered by . ren 19:18 Discharged to home ambulatory. ap3 19:18 Condition: good 19:18 Discharge instructions given to patient, Instructed on discharge instructions, follow up and referral plans. medication usage, Demonstrated understanding of instructions, follow-up care, medications, Prescriptions given X 4. 19:19 Patient left the ED. ap3 Signatures: Dispatcher [employer] EDCA Jasbir Coleman MD MD cha Martinez, Eric em1 Mary Lau RN RN gloria3 Ava Mays cl3 Renuka Yin RN RN kg Corrections: (The following items were deleted from the chart) 14:32 14:30 Allergies: Morphine; mild intolerance; kg kg 14:32 14:30 Home Meds: None; kg kg
[2020-08-28 19:24] VITALS: TEMP 98.2
[2020-08-28 19:26] VITALS: O2SAT 100
[2020-08-28 19:28] VITALS: BP 117/69
== END 2020-08-28 19:19 | disposition home or self-care (01) ==
LOC: ER 12:57
DX: L02.01 Cutaneous abscess of face (principal); E28.2 Polycystic ovarian syndrome; Z88.5 Allergy status to narcotic agent
CPT/HCPCS: 36415; 71045; 80048; 80076; 81003; 81025; 83690; 83735; 84484; 85025; 85379; 93005; 96360; 96361; 99284; J7030

== ENCOUNTER 2020-09-26 15:15 | Emergency (ER) | payer OTHER, SELFPAY ==
--- OUTSIDE RECORDS SUMMARY | 2020-09-26 15:18 | XMS REPORT | Continuity of Care Document ---
:1990 Author Organization [facility] t Address [address] [place] [address] Care Team Providers Name Role Phone Myron Galvan MD Attending Clinician Radiology Attending Clinician Unavailable Fabrizio DAVIS Attending Clinician Damon NUNO Attending [...] Date/Time Type Type Clinicians Facility Department ID 2020-09-24 2020-09-25 Emergency [facility] [id number] 23:09:00 04:02:00 Kanika Calix [id number] [place] [id number] [place] [id number] 2020-09-02 2020-09-02 Hospital Radiology [facility] [id number] 15:30:00 23:59:00 Encounter Fifi [id number] [place] [id number] [place] [id number] 2020-08-27 2020-08-27 Emergency [facility] [id number] 21:50:00 23:10:00 Kanika Calix [id number] [place] [id number] [facility] [id number] 2020-08-27 2020-08-27 Transition Nikko Dinh [id number] 00:00:00 00:00:00 of Care Prisca Ruddy [id number] Dmitry [id number] 2020-08-24 2020-08-26 [facility] Chavo Jose [facility] [id number] 14:12:00 13:37:00 Encounter Rojelio De La Rosa [id number] [place] [id number] [place] [id number] 2020-08-24 2020-08-24 Orders Doctor BERTHA [id number] 00:00:00 00:00:00 Only Unassigned, CRISELDA [id number] [place] [id number] Results This patient has no known results.
[2020-09-26 17:34] LABS: Absolute Lymphocytes (CBC) 1.8 K/uL (0.7-4.9); Basophils % 0.6 % (0-1.3); Hematocrit 36.5 % (36.0-45.0); Lymphocytes % 27.6 % (15.3-44.8); MPV 6.6 fL (7.6-11.3); RBC Red Blood Cell Count 4.47 M/uL (3.86-4.86)
[2020-09-26 17:56] LABS: ALT/SGPT 23 U/L (12-78); AST/SGOT 13 U/L (15-37); Albumin 3.7 g/dL (3.4-5.0); Alkaline Phosphatase 81 U/L (45-117); BUN Blood Urea Nitrogen 12 mg/dL (7-18); Bicarbonate 26 mmol/L (21-32); Bilirubin Direct 0.1 mg/dL (0-0.2); Bilirubin Total 0.7 mg/dL (0.2-1.0); Glucose Level 82 mg/dL (74-106); Lipase 61 U/L (73-393); Potassium 3.6 mmol/L (3.5-5.1); Sodium Level 142 mmol/L (136-145)
--- NOTE | 2020-09-26 19:33 | RAD REPORT ---
EXAM DESCRIPTION: CT - Abdomen Pelvis W Contrast - 09/26/2020 6:59 pm CLINICAL HISTORY: ABD PAIN COMPARISON: CT June 25, 2020 TECHNIQUE: Biphasic, helical CT imaging of the abdomen and pelvis was performed following 100 ml non -ionic IV contrast. Oral contrast was given. All CT scans are performed using dose optimization technique as appropriate and may include automated exposure control or mA/KV adjustment according to patient size. FINDINGS: No suspicious findings in the lung bases. The liver, spleen, and pancreas show no suspicious findings. Liver attenuation borderline fatty infil trated. Gallbladder and biliary tree are also without suspicious finding. Symmetric renal function is seen with no hydronephrosis or suspicious renal mass. No pyelonephritis o r acute parenchymal process. No bladder abnormalities. No adrenal abnormalities. Uterus and ovaries s how no suspicious findings. No dilated bowel loops or bowel wall thickening. Appendix is normal. No free air, free fluid or infla mmatory stranding. No hernia, mass or bulky lymphadenopathy. No suspicious bony findings. IMPRESSION: Contrast enhanced CT abdomen and pelvis showing no acute or emergent finding. No significant change from the June 25 study.
--- NOTE | 2020-09-26 19:37 | EDPHYS ---
Physician Documentation [facility] Name: Omayra Parra Age: 29 yrs Sex: Female : 1990 Arrival Date: 09/26/2020 Time: 15:16 Bed DIS2 Private MD: ED Physician Jasbir Coleman HPI: 09/26 16:45 This 29 yrs old Female presents to ER via Ambulatory with complaints of cp Diarrhea, Vomiting, Decreased Appetite, Headache. 16:45 The patient presents to the emergency department with diarrhea, that is continuous, cp abdominal pain, of the right upper quadrant, left upper quadrant and right lower quadrant. Onset: The symptoms/episode began/occurred 3 day(s) ago. Possible causes: unknown. Associated signs and symptoms: Pertinent positives: anorexia, nausea, Pertinent negatives: constipation, dysuria, fever, GI bleeding, vomiting. Severity of symptoms: in the emergency department the symptoms are unchanged. 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 - Social history:: Smoking status: Patient/guardian denies using tobacco, the patient reports quitting approximately 1 years ago. ROS: 16:50 Constitutional: Negative for body aches, chills, fever, poor PO intake. cp 16:50 Eyes: Negative for injury, pain, redness, and discharge. cp 16:50 ENT: Negative for ear pain, sore throat, difficulty swallowing, difficulty handling secretions. 16:50 Cardiovascular: Negative for chest pain, palpitations. 16:50 Respiratory: Negative for cough, shortness of breath, wheezing. 16:50 Abdomen/GI: Positive for abdominal pain, nausea, diarrhea, anorexia, Negative for vomiting, constipation, black/tarry stool, rectal bleeding. 16:50 Back: Negative for pain at rest, pain with movement. 16:50 : Negative for urinary symptoms. 16:50 Neuro: Negative for altered mental status, headache, weakness. 16:50 All other systems are negative. Exam: 16:55 Constitutional: The patient appears in no acute distress, alert, awake, non-toxic, well cp developed, well nourished, obese. 16:55 Head/Face: Normocephalic, atraumatic. cp 16:55 Eyes: Periorbital structures: appear normal, Conjunctiva: normal, no exudate, no injection, Sclera: no appreciated abnormality, Lids and lashes: appear normal, bilaterally. 16:55 ENT: External ear(s): are unremarkable, Nose: is normal, Mouth: Lips: moist, Oral mucosa: pink and intact, moist, Posterior pharynx: Airway: no evidence of obstruction, patent, Tonsils: are normal in appearance, swelling, is not appreciated, erythema, is not appreciated, exudate, is not appreciated. 16:55 Neck: ROM/movement: is normal, is supple, no meningismus, no nuchal rigidity. 16:55 Chest/axilla: Inspection: normal, Palpation: is normal, no crepitus, no tenderness. 16:55 Cardiovascular: Rate: normal, Rhythm: regular. 16:55 Respiratory: the patient does not display signs of respiratory distress, Respirations: normal, no use of accessory muscles, no retractions, labored breathing, is not present, Breath sounds: bronchial sounds, that are mild, are heard diffusely, decreased breath sounds, are not appreciated, stridor, is not appreciated, + upper airway congestion. wheezing: is not appreciated. 16:55 Abdomen/GI: Inspection: obese Bowel sounds: active, all quadrants, Palpation: soft, in all quadrants, moderate abdominal tenderness, in the right upper quadrant, left upper quadrant and right lower quadrant, rebound tenderness, is not appreciated, involuntary guarding, is not appreciated. 16:55 Back: pain, is absent, ROM is normal. Vital Signs: 16:28 BP 131 / 87; Pulse 83; Resp 20; Temp 99.0(O); Pulse Ox 98% on R/A; Weight 117.93 kg kg (R); Height 5 ft. 3 in. (160.02 cm) (R); Pain 6/10; 16:28 Body Mass Index 46.06 (117.93 kg, 160.02 cm) kg MDM: 16:38 Patient medically screened. cp 16:59 Differential diagnosis: gastritis, cholecystitis, pancreatitis, appendicitis, viral cp gastroenteritis, gastroenteritis. 19:36 Data reviewed: vital signs, nurses notes. Counseling: I had a detailed discussion with julien the patient and/or guardian regarding: the historical points, exam findings, and any diagnostic results supporting the discharge/admit diagnosis, lab results, radiology results, the need for outpatient follow up, to return to the emergency department if symptoms worsen or persist or if there are any questions or concerns that arise at home. 09/26 16:38 Order name: Basic Metabolic Panel; Complete Time: 18:43 cp 09/26 16:38 Order name: CBC with Diff; Complete Time: 18:43 cp 09/26 18:44 Interpretation: Normal except: MPV 6.6. cp 09/26 16:38 Order name: Hepatic Function; Complete Time: 18:43 cp 09/26 16:38 Order name: Lipase; Complete Time: 18:43 cp 09/26 16:38 Order name: Influenza Screen (a \T\ B); Complete Time: 17:43 cp 09/26 17:54 Order name: CT Abd/Pelvis - IV Contrast Only; Complete Time: 19:36 cp 09/26 18:15 Order name: SARS-COV-2 RT PCR; Complete Time: 18:43 EDMS 09/26 16:38 Order name: IV Saline Lock; Complete Time: 18:11 cp 09/26 16:38 Order name: Labs collected and sent; Complete Time: 17:33 cp 09/26 17:44 Order name: Urine Dipstick-Ancillary (obtain specimen) cp 09/26 17:44 Order name: Urine Test (obtain specimen) cp Administered Medications: 18:50 Drug: Zofran (Ondansetron) 4 mg Route: IVP; Site: right antecubital; kg 19:35 Drug: Pepcid (famotidine) 20 mg Route: IVP; Site: right antecubital; kg 19:35 Drug: fentaNYL (PF) 25 mcg Route: IVP; Site: right antecubital; kg 19:37 Drug: Bentyl (dicyclomine) 20 mg Route: IM; Site: left deltoid; kg 20:01 Not Given (Physician Discretion): NS 0.9% 1000 ml IV at 1 bolus Per protocol; 1000 mL em bolus 20:01 Not Given (Physician Discretion): NS 0.9% 1000 ml IV at 1 bolus Per protocol; 1000 mL em bolus Disposition: 09/27 07:49 Co-signature as Attending Physician, Jasbir Coleman MD I agree with the assessment and [facility] plan of care. Disposition Summary: 09/26/20 19:37 Discharge Ordered Location: Home [facility] Condition: Stable jmm Diagnosis - Abdominal pain, Generalized jmm Followup: jmm - With: Private Physician - When: 2 - 3 days - Reason: Recheck today's complaints, Continuance of care, Re-evaluation by your physician Discharge Instructions: - Discharge Summary Sheet [facility] - Abdominal Pain, Adult jm - Food Choices to Help Relieve Diarrhea, Adult [facility] Forms: - Medication Reconciliation Form [facility] - Thank You Letter [facility] - Antibiotic Education [facility] - Prescription Opioid Use [facility] Prescriptions: - ondansetron 4 mg Oral tablet,disintegrating - place 1 tablet by TRANSLINGUAL route every 4-6 hours; 20 tablet; Refills: 0, m Product Selection Permitted - dicyclomine 20 mg Oral Tablet - take 1 tablet by ORAL route 3 times per day; 30 tablet; Refills: 0, Product [facility] Selection Permitted Signatures: Dispatcher [employer] Jasbir Nguyen MD MD cha Mickail, Joel, PA PA jmm Page, Corey, PA PA cp Graham, Kristen, SUSAN RN kg Aryan Andrea RN em Corrections: (The following items were deleted from the chart) 09/26 17:20 16:28 CORONAVIRUS+ ordered. [facility]
--- NOTE | 2020-09-26 19:37 | ER ---
Nurse's Notes [facility] Name: Omayra Parra Age: 29 yrs Sex: Female : 1990 Arrival Date: 09/26/2020 Time: 15:16 Bed DIS2 Private MD: Diagnosis: Abdominal pain, Generalized Presentation: 09/26 16:28 Chief complaint: Patient states: Diarrhea, nausea x 3days. Coronavirus screen: Client kg denies travel out of the [place] in the last 14 days. At this time, unable to obtain information related to travel outside the [place] Client presents with at least one sign or symptom that may indicate coronavirus-19. Standard/surgical mask placed on the client. Provider contacted for isolation considerations. Ebola Screen: Patient negative for fever greater than or equal to 101.5 degrees Fahrenheit, and additional compatible Ebola Virus Disease symptoms Patient denies exposure to infectious person. Patient denies travel to an Ebola-affected area in the 21 days before illness onset. Initial Sepsis Screen: Does the patient meet any 2 criteria? No. Patient's initial sepsis screen is negative. Does the patient have a suspected source of infection? No. Patient's initial sepsis screen is negative. Risk Assessment: Do you want to hurt yourself or someone else? Patient reports no desire to harm self or others. Onset of symptoms was September 23, 2020. 16:28 Method Of Arrival: Ambulatory kg 16:28 Acuity: GAYE 4 kg 17:01 Acuity: GAYE 3 iw Triage Assessment: 16:30 General: Appears in no apparent distress. Behavior is calm, cooperative, appropriate kg for age, quiet. Pain: Complains of pain in abdomen. GI: Reports diarrhea, intolerance of fluids, intolerance of food, nausea, Incontinence Pt stated, " I woke up this morning shiting on myself.". 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 - Social history:: Smoking status: Patient/guardian denies using tobacco, the patient reports quitting approximately 1 years ago. Assessment: 20:09 General: Appears in no apparent distress. comfortable, Behavior is calm, appropriate em for age. Neuro: Level of Consciousness is awake, alert, obeys commands, Oriented to person, place, time, situation. Cardiovascular: Capillary refill < 3 seconds Patient's skin is warm and dry. Respiratory: Airway is patent Respiratory effort is even, unlabored. Derm: Skin is intact, is healthy with good turgor, Skin is pink, warm \\T\\ dry. Vital Signs: 16:28 BP 131 / 87; Pulse 83; Resp 20; Temp 99.0(O); Pulse Ox 98% on R/A; Weight 117.93 kg kg (R); Height 5 ft. 3 in. (160.02 cm) (R); Pain 6/10; 16:28 Body Mass Index 46.06 (117.93 kg, 160.02 cm) kg ED Course: 15:16 Patient arrived in ED. as 16:30 Triage completed. kg 16:35 Jaron Small PA is PHCP. jmm 16:35 Jasbir Coleman MD is Attending Physician. jmm 16:35 PHCP role handed off by Jaron Small PA cp 16:35 Jasbir Meredith PA is PHCP. cp 16:40 Dorothy Rose, RN is Primary Nurse. iw 17:22 Initial lab(s) drawn, by me, sent to lab. Missed attempt(s): 22 gauge in right mb4 antecubital area. Bleeding controlled, band aid applied, catheter tip intact. 17:34 Basic Metabolic Panel Sent. mb4 17:34 CBC with Diff Sent. mb4 17:34 Hepatic Function Sent. mb4 17:34 Lipase Sent. mb4 18:11 Inserted saline lock: 22 gauge in right upper arm, using aseptic technique. em1 18:59 CT Abd/Pelvis - IV Contrast Only In Process Unspecified. EDMS 19:30 Primary Nurse role handed off by Dorothy Rose, RN mw2 20:09 IV discontinued, intact, bleeding controlled, No redness/swelling at site. Pressure em dressing applied. Administered Medications: 18:50 Drug: Zofran (Ondansetron) 4 mg Route: IVP; Site: right antecubital; kg 19:35 Drug: Pepcid (famotidine) 20 mg Route: IVP; Site: right antecubital; kg 19:35 Drug: fentaNYL (PF) 25 mcg Route: IVP; Site: right antecubital; kg 19:37 Drug: Bentyl (dicyclomine) 20 mg Route: IM; Site: left deltoid; kg 20:01 Not Given (Physician Discretion): NS 0.9% 1000 ml IV at 1 bolus Per protocol; 1000 mL em bolus 20:01 Not Given (Physician Discretion): NS 0.9% 1000 ml IV at 1 bolus Per protocol; 1000 mL em bolus Outcome: 19:37 Discharge ordered by . julien 20:08 Discharged to home ambulatory. em 20:08 Condition: stable 20:08 Discharge instructions given to patient, Instructed on discharge instructions, follow up and referral plans. medication usage, Demonstrated understanding of instructions, follow-up care, medications, Prescriptions given X 2. 20:10 Patient left the ED. em Signatures: Dispatcher [employer] EDMS Jaron Small PA PA jmm Munoz, Edgar, RN RN Ruth Hernandez Irene, Alex Lee RN em1 Jasbir Meredith PA PA cp [place], MyKena mw2 Josephine Mccain mb4 Renuka Yin, SUSAN RN kg
[2020-09-26] MEDS ORDERED: FAMOTIDINE 20 MG/2 ML VIAL IV ONE (20:00)
[2020-09-26] MEDS ORDERED: FENTANYL CITR 100 MCG/2 ML ONE (20:00)
[2020-09-26] MEDS ORDERED: DICYCLOMINE HCL 20 MG/2 ML AMP IM ONE (20:00)
[2020-09-26] MEDS ORDERED: NA CHLORIDE 0.9% 2,000 ML ONE (20:01)
[2020-09-26] MEDS ORDERED: ONDANSETRON 4 MG/2 ML VIAL ONE (20:04)
[2020-09-26 20:18] VITALS: BP 131/87; TEMP 99; O2SAT 98
== END 2020-09-26 20:10 | disposition home or self-care (01) ==
LOC: ER 15:15
DX: R10.84 Generalized abdominal pain (principal); Z20.822 Contact with and (suspected) exposure to COVID-19; Z88.5 Allergy status to narcotic agent
CPT/HCPCS: 36415; 74177; 80048; 80076; 83690; 85025; 87804; 96372; 96374; 96375; 99284; J0500; J2405; J3010; J7030; Q9967; U0003

== ENCOUNTER 2021-02-10 20:19 | Emergency (ER) | payer SELFPAY ==
--- OUTSIDE RECORDS SUMMARY | 2021-02-10 20:24 | XMS REPORT | Continuity of Care Document ---
:1990 Author Organization [facility] t Address [address] [place] [address] Care Team Providers Name Role Phone RADIOLOGY Attending Clinician Unavailable Myron Galvan MD Attending Clinician Radiology Attending Clinician Unavailable Myron GALVAN Attending Clinician Unavailable Fabrizio DAVIS Attending Clinician Damon NUNO Attending Clinician Estrella NUNO Attending Clinician Doctor Unassigned, Name Attending Clinician Unavailable Estrella NUNO Admitting Clinician Problems Condition Condition Condition Status Onset Resolution Last Treating Co mments Source Name Details Category Date Date Treatment Clinician Date Cellulitis Cellulitis Disease Active U nivers of of 7-21 [place] of submental [place] [facility] Failure of Failure of Disease Active U nivers outpatient outpatient 7-20 [place] of [place] [facility] Missed Missed Disease Active Univers menses menses 9-16 ity of 00:: [place] [facility] Branch History of History of Disease Active U nivers anxiety anxiety 9-16 ity of 00:00: [place] [facility] Tobacco Tobacco Disease Active Univers use use 9-16 ity of disorder disorder 00:00: [place] [facility] General General Disease Active Overview: Univ ers counseling counseling 11-01 Formattin ity of and advice and advice 00:00: g of this [facility] note Medical contracept contracept might be Branch jamison jamison different management management from the original. ICD10 Diagnosis Term Fraud Analyst Utility Generalize Generalize Disease Active U nivers d anxiety d anxiety 9 ity of disorder disorder 00:00: [place] [facility] Morbid Morbid Disease Active Univers obesity obesity 9 ity of 00:00: [place] [facility] Allergies, Adverse Reactions, Alerts Allergy Allergy Status Severity Reaction(s) Onset Inactive Treating Comm ents Source Name Type Date Date Clinician MORPHINE DRUG Active Low Anxiety Univers INGREDI 7- ity of 00:00: [place] [facility] Morphine Propensi Active Nausea Univer s ty to and/or 08-24 ity of adverse Vomiting 00:00: [place] reaction 00 Medical s Branch NO KNOWN Drug Active Univers ALLERGIE Class ity of S [facility] Social History Social Habit Start Date Stop Date Quantity Comments Source Exposure to Not sure [facility] SARS-CoV-2 (event) [facility] Cigarettes smoked 2020-08-24 2020-08-24 Univers ity of current (pack per 00:00:00 00:00:00 ) - Reported Branch Cigarette 2020-08-24 2020-08-24 University of pack-years 00:00:00 00:00:00 [facility] Tobacco use and 2020-08-24 2020-08-24 Never used Universit y of exposure 00:00:00 00:00:00 [facility] Alcohol intake 2020-08-24 2020-08-24 Current drinker Unive rsity of 00:00:00 00:00:00 of alcohol [facility] (finding) Branch History SDOH 2020-08-24 2020-08-24 21 University o f Education 00:00:00 00:00:00 [facility] Tobacco Comment 2020-08-24 2020-08-24 quit last week Unive rsity of 00:00:00 00:00:00 [facility] History of tobacco 2012-02-02 Cigarette Smoker University of use 00:00:00 [facility] Sex [birth year] At [birth year] Universit y of 00:00:00 00:00:00 [facility] Smoking Status Start Date Stop Date Source Current every day smoker 2020-08-24 00:00:00 [facility] Current some day smoker 2017-09-13 00:00:00 [facility] Medications Ordered Filled Start Stop Current Ordering Indication Dosage Frequency Signature Comments Components Source Medication Medication Date Date Medication? Clinician (SIG) Name Name ketorolac No 30mg 30 mg, Unive rs (TORADOL) 09-25 Slow IV ity of injection 09:15: 08:17 Push, [place] 30 mg 00 :00 ONCE, 1 Medical dose, Sat [place] 09/25/20 at 0415, Routine
production team member approving Restricted medication : GERALDINE GALVAN ondansetron No 4mg 4 mg, Slow Univers (ZOFRAN 09-25 IV Push, ity of (PF)) 08:45: 07:52 ONCE, 1 [place] injection 4 00 :00 dose, Sat Med ical mg 09/25/20 at Branch 0345, MAKAYLA iopamidol 2020- No [id number] 100mL 100 mL, Univers (ISOVUE 09-25 Intravenou ity o f 370-500 mL) 08:00: 06:50 s, ONCE, 1 [place] injection 00 :00 dose, Sat Medic al 100 mL 09/25/20 at Branch 0300, Routine FENTanyl PF No 50ug 50 mcg, Un tana (SUBLIMAZE 09-25 Slow IV ity o f (PF)) 07:30: 06:42 Push, [place] injection 00 :00 ONCE, 1 Medical 50 mcg dose, Sat [place] 09/25/20 at 0230, Routine ondansetron 2020- No 4mg 4 mg, Slow Univers (ZOFRAN 09-25 IV Push, ity of (PF)) 07:30: 06:41 ONCE, 1 [place] injection 4 00 :00 dose, Sat Med ical mg 09/25/20 at Branch 0230, MAKAYLA KCL 2020- No 40meq 40 mEq, Univers (KLOR-CON 09-25 Oral, ity of M20) tablet 07:30: 06:42 ONCE, 1 [place] 40 mEq 00 :00 dose, Sat Medical 09/25/20 at Branch 0230, MAKAYLA dicyclomine 2020-0 Yes [id number] 20mg Take 1 Univers 20 mg 8-21 tablet by ity of tablet 00:00: mouth [place] 00 every 6 Medical (six) Branch hours as needed for Abdominal pain. ondansetron 0 Yes [id number] 4mg Take 1 Univers (ZOFRAN) 4 8-21 tablet by ity of mg tablet 00:00: mouth [place] 00 every 8 Medical (eight) Branch hours as needed for Nausea and Vomiting (N/V). melatonin 0 Yes 6mg 6 mg, Univers (MELATIN) 7-23 Oral, QHS, ity of tablet 6 mg 02:00: First dose [place] 00 on [place] Medical 08/26/20 at Branch 2100, Until Discontinu ed, Routine omeprazole 2020-0 Yes [id number] 20mg Take 1 Univers 20 mg 7-23 capsule by ity of capsule 00:00: mouth [place] 00 daily. [facility] omeprazole 2020-0 Yes [id number] 20mg Take 1 Univers 20 mg 7-23 capsule by ity of capsule 00:00: mouth [place] 00 daily. [facility] omeprazole 2020-0 Yes [id number] 20mg Take 1 Univers 20 mg 7-23 capsule by ity of capsule 00:00: mouth [place] 00 daily. [facility] omeprazole 2020-0 Yes [id number] 20mg Take 1 Univers 20 mg 7-23 capsule by ity of capsule 00:00: mouth [place] 00 daily. [facility] omeprazole 2020-0 Yes [id number] 20mg Take 1 Univers 20 mg 7-23 capsule by ity of capsule 00:00: mouth [place] 00 daily. [facility] omeprazole 2020-0 2021- No [id number] 20mg Take 1 Univers 20 mg 7-23 07-22 capsule by ity of capsule 00:00: 00:00 mouth [place] 00 :00 daily for Medical 30 days. Branch vancomycin 2020-0 Yes 1250mg 1,250 mg, Univers 1250 mg in 08-26 IV ity of NS 250 mL 19:00: Infusion, [place] RTU IV 00 Q8H ABX, Medical Piggyback First dose Bran ch 1,250 mg on Glory 08/26/20 at 1400, Until Discontinu ed
Reas on for Anti-Infec tive: Empiric Therapy for Suspected Infection< br>Empiric Therapy Site: Skin / Soft tissue
Duration of therapy: 72 hours ALPRAZolam 2020- No 1mg Take 1 mg U nivers (XANAX) 1 08-26 by mouth 2 ity of mg tablet 16:14: 00:00 (two) [place] 31 :00 times Medical daily. Branch dextroamphe 2020- No 20mg Take 20 mg Univers tamine-amph 08-26 by mouth 2 i ty of etamine 16:14: 00:00 (two) [place] (ADDERALL) 31 :00 times Medical 20 mg daily. Branch tablet PROMETHAZIN 2020- No Take by U dmitriy E HCL 08-26 mouth. ity of (PROMETHAZI 16:08: 00:00 [place] NE ORAL) 03 :00 Medical Branch Hyoscyamine 2020- No Take by U dmitriy Sulfate 08-26 mouth. ity of (ANASPAZ) 16:08: 00:00 [place] 0.125 mg 03 :00 Medical TbDL Branch omeprazole 2020- No 20mg Take 20 mg Univers (PRILOSEC) 08-26 by mouth 2 it y of 20 mg 16:08: 00:00 (two) [place] capsule 03 :00 times Medical daily. Branch HYDROcodone 2020- No 1{tbl} 1 tablet, Univers -acetaminop 08-26 Oral, ity of hen (NORCO 02:15: 23:14 Q4HPRN, [place] 5) 5-325 mg 00 :00 Starting Medi yana tablet 1 Sun Branch tablet 08/25/20 at 2115, Until [place] 08/26/20 at 1814, Routine, Pain (scale 4-6) temazepam Yes 15mg 15 mg, Univer s (RESTORIL) 08-26 Oral, ity of capsule 15 02:04: QHSPRN, [place] mg 44 Starting Medical Wed Branch 08/25/20 at 2104, Until Discontinu ed, Routine, Insomnia sulfamethox Yes [id number] 1{tbl} Take 1 Univers azole-trime 7-22 tablet by ity of thoprim 00:00: mouth 2 [place] 800-160 mg 00 (two) Medical per tablet times Branch daily. HYDROcodone 2020-0 Yes [id number] 1{tbl} Take 1 Un tana -acetaminop 7-22 tablet by ity of hen 5-325 00:00: mouth [place] mg tablet 00 every 6 Medical (six) Branch hours as needed for Pain (scale 4-6) or Pain (scale 7-10). Indication s: acute pain sulfamethox 202-0 Yes [id number] 1{tbl} Take 1 Univers azole-trime 7-22 tablet by ity of thoprim 00:00: mouth 2 [place] 800-160 mg 00 (two) Medical per tablet times Branch daily. HYDROcodone 2020-0 Yes [id number] 1{tbl} Take 1 Un tana -acetaminop 7-22 tablet by ity of hen 5-325 00:00: mouth [place] mg tablet 00 every 6 Medical (six) Branch hours as needed for Pain (scale 4-6) or Pain (scale 7-10). Indication s: acute pain sulfamethox 2020-0 Yes [id number] 1{tbl} Take 1 Univers azole-trime 7-22 tablet by ity of thoprim 00:00: mouth 2 [place] 800-160 mg 00 (two) Medical per tablet times Branch daily. HYDROcodone 2020-0 Yes [id number] 1{tbl} Take 1 Un tana -acetaminop 7-22 tablet by ity of hen 5-325 00:00: mouth [place] mg tablet 00 every 6 Medical (six) Branch hours as needed for Pain (scale 4-6) or Pain (scale 7-10). Indication s: acute pain sulfamethox 2020-0 Yes [id number] 1{tbl} Take 1 Univers azole-trime 7-22 tablet by ity of thoprim 00:00: mouth 2 [place] 800-160 mg 00 (two) Medical per tablet times Branch daily. HYDROcodone 2020-0 Yes [id number] 1{tbl} Take 1 Un tana -acetaminop 7-22 tablet by ity of hen 5-325 00:00: mouth [place] mg tablet 00 every 6 Medical (six) Branch hours as needed for Pain (scale 4-6) or Pain (scale 7-10). Indication s: acute pain sulfamethox 2020-0 Yes [id number] 1{tbl} Take 1 Univers azole-trime 7-22 tablet by ity of thoprim 00:00: mouth 2 [place] 800-160 mg 00 (two) Medical per tablet times Branch daily. HYDROcodone 2020-0 Yes [id number] 1{tbl} Take 1 Un tana -acetaminop 7-22 tablet by ity of hen 5-325 00:00: mouth [place] mg tablet 00 every 6 Medical (six) Branch hours as needed for Pain (scale 4-6) or Pain (scale 7-10). Indication s: acute pain sulfamethox 2020- No [id number] 1{tbl} Take 1 Univers azole-trime 7-22 -22 tablet by it y of thoprim 00:00: 00:00 mouth 2 [place] 800-160 mg 00 :00 (two) Medical per tablet times Branch daily for 7 days. omeprazole Yes 20mg 20 mg, Unive rs (PRILOSEC) 08-25 Oral, ity of capsule 20 14:00: DAILY, [place] mg 00 First dose Medical on Sun Branch 08/25/20 at 0900, Until Discontinu ed, Routine enoxaparin Yes 40mg 40 mg, Unive rs (LOVENOX) 08-25 Subcutaneo ity of injection 14:00: [place], DAILY, [place] 40 mg 00 First dose Medical on Sun Branch 08/25/20 at 0900, Until Discontinu ed, Routine docusate Yes 100mg 100 mg, Unive rs (COLACE) 08-25 Oral, ity of capsule 100 14:00: DAILY, [place] mg 00 First dose Medical on Sun Branch 08/25/20 at 0900, Until Discontinu ed, Routine vancomycin 2020- No 1500mg 1,500 mg, Univers 1500 mg in 08-25 IV ity of NS 500 mL 10:00: 15:13 Piggyback, [place] IV 00 :45 Q12H ABX, Medical Piggyback First dose Bran ch RTU 1,500 on Sun mg 08/25/20 at 0500, Until Discontinu ed
Reas on for Anti-Infec tive: Empiric Therapy for Suspected Infection< br>Empiric Therapy Site: Skin / Soft tissue
Duration of therapy: 72 hours ceFAZolin Yes 1000mg 1,000 mg, U nivers (ANCEF) 08-25 IV ity of 1,000 mg in 01:15: Piggyback, [place] NaCl 0.9% 00 Q6H ABX, Medica l (NS) 50 mL First dose Bra nch MINI-BAG on Sun08/24/20 at 2015, Until Discontinu ed, 50 mL
R landy for Anti-Infec tive: Empiric Therapy for Suspected Infection< br>Empiric Therapy Site: Skin / Soft tissue
Duration of therapy: 72 hours FENTanyl PF Yes 50ug 50 mcg, Uni vers (SUBLIMAZE 08-25 Slow IV ity of (PF)) 00:05: Push, [place] injection 21 Q6HPRN, Medical 50 mcg Starting Branch Sun08/24/20 at 1905, Until Discontinu ed, Routine, Pain (scale 7-10) ondansetron 2020- No 4mg 4 mg, Slow Univers (ZOFRAN 08-24 IV Push, ity of (PF)) 23:45: 22:44 ONCE, 1 [place] injection 4 00 :00 dose, Med ical mg 08/24/20 at Branch 1845, MAKAYLA FENTanyl PF 2020- No 100ug 100 mcg, Univers (SUBLIMAZE 08-24 Slow IV ity o f (PF)) 23:45: 22:45 Push, [place] injection 00 :00 ONCE, 1 Medical 100 mcg dose, [facility] 08/24/20 at 1845, Routine NaCl 0.9% 2020- No 1000mL at 125 Uni vers (NS) IV 08-24 mL/hr, IV ity of infusion 23:30: 13:51 Infusion, [place] 1,000 mL 00 :28 CONTINUOUS Medic al , Starting Branch Sun08/24/20 at 1830, Until Sun08/25/20 at 0851, Routine vancomycin 2020- No 1500mg 1,500 mg, Univers 1500 mg in 08-24 IV ity of NS 500 mL 23:30: 00:07 [place]fusion, [place] IV 00 :00 ONCE, 1 Medical Piggyback dose, Tue Branc h RTU 1,500 08/24/20 at mg 1830
Re ason for Anti-Infec tive: Documented Infection< br>Documen tali Infection Site: Skin / Soft Tissue
Duration of Therapy: Other (see Comments) ondansetron Yes 4mg 4 mg, Slow Univers (ZOFRAN 08-24 IV Push, ity of (PF)) 23:23: Q6HPRN, [place] injection 4 22 Starting Medi yana mg [facility] Branch 08/24/20 at 1823, Until Discontinu ed, Routine, Nausea and Vomiting (N/V) HYDROcodone 2020- No 1{tbl} 1 tablet, Univers -acetaminop 08-24 Oral, ity of hen (NORCO 23:22: 02:05 Q6HPRN, [place] 5) 5-325 mg 55 :20 Starting Medi yana tablet 1 [facility] tablet 08/24/20 at 1822, Until 08/25/20 at 2105, Routine, Pain (scale 4-6) acetaminoph Yes 650mg 650 mg, Un tana en 08-24 Oral, ity of (TYLENOL) 23:22: Q6HPRN, [place] tablet 650 49 Starting Medic al mg [facility] 08/24/20 at 1822, Until Discontinu ed, Routine, Pain (scale 1-3), Temp > 38.5 C FENTanyl PF 2020- No 50ug 50 mcg, Un tana (SUBLIMAZE 08-2420 Slow IV ity o f (PF)) 20:30: 19:54 Push, [place] injection 00 :00 ONCE, 1 Medical 50 mcg dose, [facility] Branch 08/24/20 at 1530, Routine ondansetron 2020- No 4mg 4 mg, Slow Univers (ZOFRAN 08-24 IV Push, ity of (PF)) 20:30: 19:53 ONCE, 1 [place] injection 4 00 :00 dose, e Med ical mg 08/24/20 at Branch 1530, MAKAYLA iopamidol 2020- No [id number] 100mL 100 mL, Univers (ISOVUE 08-24 Intravenou ity o f 370-500 mL) 20:10: 20:10 s, ONCE, 1 [place] injection 00 :00 dose, Tue Medic al 100 mL 08/24/20 at Branch 1530, Routine PROMETHAZIN Yes Take by Un tana E HCL 5-27 mouth. ity of (PROMETHAZI 06:11: [place] NE ORAL) 47 Medical Branch Hyoscyamine Yes Take by Un tana Sulfate 5-27 mouth. ity of (ANASPAZ) 06:11: [place] 0.125 mg 47 Medical TbDL Branch dextroamphe Yes 20mg Take 20 mg Univers tamine-amph 2-24 by mouth 2 it y of etamine 02:34: (two) [place] (ADDERALL) 31 times Medical 20 mg daily. Branch tablet ondansetron Yes 4mg Take 1 Tab Univers (ZOFRAN) 4 2-24 by mouth ity o f mg tablet 00:00: every 8 [place] 00 (eight) Medical hours as Branch needed for Nausea and Vomiting (N/V). traMADOL Yes 50mg Take 1 Tab Uni vers (ULTRAM) 50 2-24 by mouth ity of mg tablet 00:00: every 6 [place] 00 (six) Medical hours as Branch needed for Pain unrelieved by non-narcot ic analgesics . pantoprazol Yes 40mg Take 1 Tab Univers e 2-24 by mouth ity of (PROTONIX) 00:00: daily. [place] 40 mg EC 00 Medical tablet Branch traMADOL 2020- No 50mg Take 1 Tab Un tana (ULTRAM) 50 2-24 -22 by mouth ity of mg tablet 00:00: 00:00 every 6 [place] 00 :00 (six) Medical hours as Branch needed for Pain unrelieved by non-narcot ic analgesics . pantoprazol 2020- No 40mg Take 1 Tab Univers e 2-24 -22 by mouth ity of (PROTONIX) 00:00: 00:00 daily. [place] 40 mg EC 00 :00 Medical tablet Branch ondansetron 2020- No 4mg Take 1 Tab Univers (ZOFRAN) 4 2-24 07-22 by mouth ity of mg tablet 00:00: 00:00 every 8 [place] 00 :00 (eight) Medical hours as Branch needed for Nausea and Vomiting (N/V). ALPRAZolam Yes 1mg Take 1 mg Un tana (XANAX) 1 9-16 by mouth 2 ity of mg tablet 14:20: (two) [place] 25 times Medical daily. Branch omeprazole Yes 20mg Take 20 mg U nivers (PRILOSEC) 9-16 by mouth 2 ity of 20 mg 14:20: (two) [place] capsule 25 times Medical daily. Branch Immunizations Ordered Immunization Filled Immunization Date Status Commen ts Source Name Name [facility] 2012-09-25 Completed University of 00:00:00 [facility] TDAP 2012-09-25 Completed University of 00:00:00 [facility] TDAP 2012-09-25 Completed University of 00:00:00 [facility] TDAP 2012-09-25 Completed University of 00:00:00 [facility] TDAP 2012-09-25 Completed University of 00:00:00 [facility] TDAP 2012-09-25 Completed University of 00:00:00 [facility] Meningococcal 2011-01-25 Completed University of Vaccine 00:00:00 [facility] Meningococcal 2011-01-25 Completed University of Vaccine 00:00:00 [facility] Meningococcal 2011-01-25 Completed University of Vaccine 00:00:00 [facility] Meningococcal 2011-01-25 Completed University of Vaccine 00:00:00 [facility] Meningococcal 2011-01-25 Completed University of Vaccine 00:00:00 [facility] Meningococcal 2011-01-25 Completed University of Vaccine 00:00:00 [facility] Rubella 2010-04-01 Completed University of 00:00:00 [facility] Rubella 2010-04-01 Completed University of 00:00:00 [facility] Rubella 2010-04-01 Completed University of 00:00:00 [facility] Rubella 2010-04-01 Completed University of 00:00:00 [facility] Rubella 2010-04-01 Completed University of 00:00:00 [facility] Rubella 2010-04-01 Completed University of 00:00:00 [facility] Td 2006-02-05 Completed University of 00:00:00 [facility] Td 2006-02-05 Completed University of 00:00:00 [facility] Branch Td 2006-02-05 Completed University of 00:00:00 [facility] Branch Td 2006-02-05 Completed University of 00:00:00 [facility] Branch Td 2006-02-05 Completed University of 00:00:00 [facility] Branch Td 2006-02-05 Completed University of 00:00:00 [facility] Branch Varicella 1996-02-06 Completed University of (varivax)(chicken 00:00:[address] [facility] edical pox) Branch Varicella 1996-02-06 Completed University of (varivax)(chicken 00:00:[address] [facility] edical pox) Branch Varicella 1996-02-06 Completed University of (varivax)(chicken 00:00:[address] [facility] edical pox) Branch Varicella 1996-02-06 Completed University of (varivax)(chicken 00:00:[address] [facility] edical pox) Branch Varicella 1996-02-06 Completed University of (varivax)(chicken 00:00:[address] [facility] edical pox) Branch Varicella 1996-02-06 Completed University of (varivax)(chicken 00:00:[address] [facility] edical pox) Branch Vital Signs Vital Name Observation Time Observation Value Comments Source Heart rate 2020-09-25 07:59:00 69 /min [facility] Respiratory rate 2020-09-25 07:59:00 19 /min [facility] Oxygen saturation in 2020-09-25 07:59:00 99 /min [facility] Arterial blood by [facility] Pulse oximetry Branch Systolic blood 2020-09-25 07:00:00 141 mm[Hg] Univer sity of pressure [facility] Diastolic blood 2020-09-25 07:00:00 83 mm[Hg] Unive rsity of pressure [facility] Body temperature 2020-09-25 04:15:00 37.22 Ann-Marie [facility] Body weight 2020-09-25 04:12:00 117.935 kg [facility] BMI 2020-09-25 04:12:00 47.55 kg/m2 [facility] Heart rate 2020-09-25 07:59:00 69 /min [facility] Respiratory rate 2020-09-25 07:59:00 19 /min Univ ersity [facility] [place] [facility] Oxygen saturation in 2020-09-25 07:59:00 99 /min University of Arterial blood by [place] [employer] yana Pulse oximetry Branch Systolic blood 2020-09-25 07:00:00 141 mm[Hg] Univer sity of pressure [place] [facility] Diastolic blood 2020-09-25 07:00:00 83 mm[Hg] Unive rsity of pressure [place] [facility] Body temperature 2020-09-25 04:15:00 37.22 Ann-Marie Univ ersity of [place] [facility] Body weight 2020-09-25 04:12:00 117.935 kg Universi ty of [place] [facility] BMI 2020-09-25 04:12:00 47.55 kg/m2 Universi ty [facility] [place] [facility] Systolic blood 2020-08-28 04:02:00 139 mm[Hg] Univer sity of pressure [place] [facility] Diastolic blood 2020-08-28 04:02:00 86 mm[Hg] Unive rsity of pressure [place] [facility] Heart rate 2020-08-28 04:02:00 75 /min Universi ty [facility] [place] [facility] Respiratory rate 2020-08-28 04:02:00 19 /min Univ ersity of [place] [facility] Oxygen saturation in 2020-08-28 04:02:00 98 /min University of Arterial blood by [facility] Pulse oximetry Branch Body temperature 2020-08-28 02:48:00 37 Ann-Marie Univ ersity of [place] [facility] Body weight 2020-08-28 02:48:00 117.935 kg Universi ty [facility] [place] [facility] BMI 2020-08-28 02:48:00 47.55 kg/m2 [facility] [place] [facility] Systolic blood 2020-08-28 04:02:00 139 mm[Hg] Univer sity of pressure [place] [facility] Diastolic blood 2020-08-28 04:02:00 86 mm[Hg] Unive rsity of pressure [place] [facility] Heart rate 2020-08-28 04:02:00 75 /min Universi ty [facility] [place] [facility] Respiratory rate 2020-08-28 04:02:00 19 /min Univ ersity of [place] [facility] Oxygen saturation in 2020-08-28 04:02:00 98 /min University of Arterial blood by [facility] Pulse oximetry Branch Body temperature 2020-08-28 02:48:00 37 Ann-Marie Univ ersity [facility] [place] [facility] Body weight 2020-08-28 02:48:00 117.935 kg Universi ty of [place] [facility] BMI 2020-08-28 02:48:00 47.55 kg/m2 [facility] [place] [facility] Systolic blood 2020-08-26 12:28:00 124 mm[Hg] Univer sity of pressure [place] [facility] Diastolic blood 2020-08-26 12:28:00 82 mm[Hg] Unive rsity of pressure [place] [facility] Heart rate 2020-08-26 12:28:00 62 /min Universi ty [facility] [place] [facility] Body temperature 2020-08-26 12:28:00 35.94 Ann-Marie Univ ersity of [place] [facility] Respiratory rate 2020-08-26 12:28:00 18 /min Univ ersity of [place] [facility] Oxygen saturation in 2020-08-26 12:28:00 97 /min University of Arterial blood by [facility] [employer] [facility] Pulse oximetry Branch Body height 2020-08-24 23:49:00 157.5 cm [facility] [place] [facility] Body weight 2020-08-24 23:49:00 117.935 kg Universi ty [facility] [place] [facility] BMI 2020-08-24 23:49:00 47.55 kg/m2 [facility]i [facility] [place] [facility] Systolic blood 2020-08-26 12:28:00 124 mm[Hg] Univer sity of pressure [place] [facility] Diastolic blood 2020-08-26 12:28:00 82 mm[Hg] Unive rsity of pressure [place] [facility] Heart rate 2020-08-26 12:28:00 62 /min [facility] [place] [facility] Body temperature 2020-08-26 12:28:00 35.94 Ann-Marie Univ ersity of [place] [facility] Respiratory rate 2020-08-26 12:28:00 18 /min Univ ersity [facility] [place] [facility] Oxygen saturation in 2020-08-26 12:28:00 97 /min University of Arterial blood by [place] [employer] yana Pulse oximetry Branch Body height 2020-08-24 23:49:00 157.5 cm Universi [facility] [place] [facility] Body weight 2020-08-24 23:49:00 117.935 kg [facility] [place] [facility] BMI 2020-08-24 23:49:00 47.55 kg/m2 [facility] Procedures Procedure Date / Time Performing Clinician Source Performed CT ABDOMEN PELVIS W 2020-09-25 06:56:20 Geraldine Galvan [facility] CONTRAST [facility] POCT TEST 2020-09-25 04:31:00 Geraldine Galvan [facility] LIPASE 2020-09-25 04:25:00 Geraldine Galvan [facility] COMP. METABOLIC PANEL 2020-09-25 04:25:00 Geraldine Galvan [facility] ([id number]) [facility] CBC WITH DIFF 2020-09-25 04:25:00 Geraldine Galvan [facility] URINALYSIS 2020-09-25 04:25:00 Geraldine Galvan [facility] HB ABO GROUPING 2020-09-25 04:25:00 Geraldine Galvan [facility] CONSENT/REFUSAL FOR 2020-09-25 04:05:50 Doctor Unassigned, [facility] DIAGNOSIS AND TREATMENT [facility] US HEAD NECK 2020-09-02 21:57:52 Requisition, Paper [facility] EKG-12 LEAD 2020-08-28 03:56:58 Geraldine Galvan [facility] BASIC METABOLIC PANEL 2020-08-26 09:41:00 Renée Corbin [facility] (NA, K, CL, CO2, GLUCOSE, Medica l Branch BUN, CREATININE, CA) VANCOMYCIN TROUGH 2020-08-26 09:41:00 Rojelio De La Rosa [facility] CBC WITH DIFF 2020-08-26 09:41:00 Renée Corbin [facility] VANCOMYCIN TROUGH 2020-08-25 21:37:00 Renée Corbin [facility] BASIC METABOLIC PANEL 2020-08-25 11:06:00 Rojelio De La Rosa [facility] (NA, K, CL, CO2, GLUCOSE, Medica l Branch BUN, CREATININE, CA) CBC WITH DIFF 2020-08-25 11:06:00 Rojelio De La Rosa o f [facility] CT SOFT TISSUE NECK W 2020-08-24 20:22:18 Chavo Jose [facility] CONTRAST [facility] BLOOD CULTURE SCREEN 2020-08-24 19:49:00 Chavo Jose [facility] COMP. METABOLIC PANEL 2020-08-24 19:48:00 Chavo Jose [facility] ([id number]) [facility] CBC WITH DIFF 2020-08-24 19:48:00 Chavo Jose [facility] GLYCOSYLATED HEMOGLOBIN 2020-08-24 19:48:00 Chavo [facility] (A1C) Medical Branch COVID-19 (ID NOW RAPID 2020-08-24 19:48:00 Chavo Jose [facility] TESTING) Medical Branch LAB ONLY COVID 2020-08-24 19:48:00 Chavo Jose [facility] INTERPRETATION [facility] BLOOD CULTURE SCREEN 2020-08-24 19:47:00 Chavo Jose [facility] POCT TEST 2020-08-24 19:28:00 Chavo Jose [facility] NOTICE OF PRIVACY 2020-08-24 18:52:34 Doctor Unassdonna, [facility] PRACTICES [facility] CONSENT/REFUSAL FOR 2020-08-24 18:52:20 Doctor Unaveronique, [facility] DIAGNOSIS AND TREATMENT [facility] Encounters Start End Encounter Admission Attending Care Care Encounter Source Date/Time Date/Time Type Type Clinicians Facility Department ID 2020-12-06 Emergency [facility] [id number] Univers 17:05:57 [facility] 2020-09-30 2020-09-30 Outpatient R RADIOLOGY [facility] [id number] Univers 16:00:00 16:00:[id number] [facility] 2020-09-24 2020-09-25 Emergency [facility] [id number] 23:09:00 04:02:00 Geraldine Calix [id number] William 4.2.7.2.686 [place] [id number] 2020-09-24 2020-09-25 Emergency Yariia, [facility] [id number] Univers 23:09:00 04:02:00 Geraldine Sanches [place] [id number] [facility] [place] 4.2.7.2.686 [facility] [id number] [facility] 084 Branch 2020-09-02 2020-09-02 Hospital Radiology [facility] [id number] 15:30:00 23:59:00 Encounter [place] [id number] [place] [facility] 4.2.7.2.686 [place] [id number] 2020-09-02 2020-09-02 Hospital Radiology [facility] [id number] Univers 15:30:00 23:59:00 Encounter [place] [id number] [facility] [place] 4.2.7.2.686 [facility] [id number] [facility] 806 Branch 2020-09-02 2020-09-02 Outpatient R RADIOLOGY [facility] [id number] Univers 00:00:00 00:00:00 ity of [facility] 2020-08-27 2020-08-27 Emergency [facility] [id number] 21:50:00 23:10:00 Geraldine Sanches [place] 350.1.13.10 [place] 4.2.7.2.686 [place] [id number] 2020-08-27 2020-08-27 Emergency [facility] [id number] Univers 21:50:00 23:10:00 Geraldine Sanches [place] 350.1.13.10 [facility] [place] 4.2.7.2.686 [facility] [id number] [address] 2020-08-27 2020-08-27 Emergency X [facility] ERT [id number] Univers 21:50:00 21:50:00 WAKILI ity of [facility] 2020-08-27 2020-08-27 Transition Nikko Dinh [id number] 00:00:00 00:00:00 of Care Prisca Fox 350.1.13.10 [place] 4.2.7.2.686 [id number] 2020-08-27 2020-08-27 Transition Nikko Dinh 1.2.840.114 [id number] Univers 00:00:00 00:00:00 of Care Prisca [place] 350.1.13.10 [place] [id number] [facility] 403 Branch 2020-08-24 2020-08-26 [facility] Chavo Jose [facility] 1.2.840.1 [id number] 14:12:00 13:37:00 Encounter MatthewRojelio duran 350.1.13.10 [place] 4.2.7.2.686 [place] [id number] 08 2020-08-24 2020-08-26 [facility] Chavo Jose [facility] 1.2.840.1 14 [id number] Univers 14:12:00 13:37:00 Encounter Rojelio De La Rosa 350.1.13.10 [place] [id number] [facility] 081 Branch 2020-08-24 2020-08-24 Emergency X [facility] ERT [id number] Univers 13:52:00 13:52:00 ity of [facility] 2020-08-24 2020-08-24 Orders Doctor STONE [id number] 00:00:00 00:00:00 Only Unassigned, CRISELDA 350.1.13.10 [facility] 4.2.7.2.686 [id number] 2020-08-24 2020-08-24 Orders Doctor STONE 1.2.840.114 [id number] Univers 00:00:00 00:00:00 Only Unassigned, CRISELDA 350.1.13.10 ity of [facility] 4.2.7.2.686 Roby as [id number] [address] Results Test Test Test Results Result Source Description Time Comments Comments CT ABDOMEN 2020-09- No acute process Univers ity of PELVIS W 21 identified in the abdomen [facility] CONTRAST 07:53:53 or pelvis. RL: 460 AFC: Branch [id number] Ordering physician: GERALDINE GALVAN Indication: Acute abdominal pain COMPARISON: None TECHNIQUE: Axial images of the abdomen and pelvis are performed followingadministration of intravenous contrast material. Images were reformatted inthe coronal and sagittal plane. CT scan was performed according to ALARA(as low as reasonably achievable) policy. FINDINGS: The lung bases are clear. The liver, gallbladder, spleen, adrenalglands and pancreas are within normal limits. The kidneys are normal inappearance bilaterally without hydronephrosis. No abdominal aortic aneurysmor dissection is appreciated. There is no free fluid in the pelvis. The CT appearance of the uterus andovaries is within normal limits. There is no bowel obstruction, widespreaddiverticulosis or acute diverticulitis. The appendix is identified andwithin normal limits. ?Bone windows through the abdomen and pelvisdemonstrate no osseous destructive lesion. [facility], Radiant Results Inft User - 09/25/2020 2:55 AM CDT Ordering physician: GERALDINE GALVANIndication: Acute abdominal painCOMPARISON: NoneTECHNIQUE: Axial images of the abdomen and pelvis are performed followingadministration of intravenous contrast material. Images were reformatted inthe coronal and sagittal plane. CT scan was performed according to ALARA(as low as reasonably achievable) policy.FINDINGS: The lung bases are clear. The liver, gallbladder, spleen, adrenalglands and pancreas are within normal limits. The kidneys are normal inappearance bilaterally without hydronephrosis. No abdominal aortic aneurysmor dissection is appreciated.There is no free fluid in the pelvis. The CT appearance of the uterus andovaries is within normal limits. There is no bowel obstruction, widespreaddiverticulosis or acute diverticulitis. The appendix is identified andwithin normal limits. Bone windows through the abdomen and pelvisdemonstrate no osseous destructive lesion.IMPRESSIONNo acute process identified in the abdomen or pelvis.RL: 460AFC: 61572 Type and Screen - ONCE STAT 2020-09-25 05:30:42 Test Item Value Reference Range Interpretation Comme nts ABO & RH (test code = 20) A Positive Pe rformed at [facility] Laboratory [facility] Blood [address] Free: [phone] A No. [id number] IAT (test code = 1185) Negative Perfo rmed at [facility] Blood [address] Free: [phone] A No. [id number] [facility] 05:16:57 Test Item Value Reference Range Interpretation Comments APPEARANCE (test code = Hazy Clear A 9008746963) COLOR (test code = Yellow Yellow 7592429432) PH (test code = 4.8-8.0 7393211276) SP GRAVITY (test code = 1.003-1.030 2307921241) GLU U QUAL (test code = Normal Normal 9123888742) BLOOD (test code = 1+ Negative A 5207354533) KETONES (test code = Negative Negative 1882349413) PROTEIN (test code = Negative Negative 2887-8) UROBILIN (test code = Normal Normal 5876115459) BILIRUBIN (test code = Negative Negative 7035108987) NITRITE (test code = Negative Negative 0122459700) LEUK VASILIY (test code = Negative Negative 9737881297) RBC/HPF (test code = See_Comment [Autom ated message] 7505285194) The system [employer] generated this result transmitted ref erence range: 0 - 3 HP F. The reference range was not used to int erpret this result as normal/abnormal . WBC/HPF (test code = See_Comment [Autom ated message] 2329206134) The system [employer] generated this result transmitted ref erence range: 0 - 5 HP F. The reference range was not used to int erpret this result as normal/abnormal . BACTERIA (test code = Few Negative A 4070893902) MUCOUS (test code = Moderate Negative LPF A 7193919498) SQ EPITH (test code = HPF 1696720062) Lab Interpretation (test Abnormal code = 12238-0) [facility] Metabolic [id number] 05:15:36 Test Item Value Reference Range Interpretation Comments NA (test code = 140 mmol/L 135-145 7323238970) K (test code = 3.3 mmol/L 3.5-5.0 L 8534268580) CL (test code = 104 mmol/L 98-108 7258320387) CO2 TOTAL (test code = 26 mmol/L 23-31 5703078020) AGAP (test code = 2-16 5987093294) BUN (test code = 16 mg/dL 7-23 0997063766) GLUCOSE (test code = 93 mg/dL 70-110 9863231151) CREATININE (test code = 0.64 mg/dL 0.50-1.04 4329349440) TOTAL BILI (test code = 0.7 mg/dL 0.1-1.1 5570880870) CALCIUM (test code = 9.5 mg/dL 8.6-10.6 3980814080) T PROTEIN (test code = 7.5 g/dL 6.3-8.2 5512701597) ALBUMIN (test code = 4.3 g/dL 3.5-5.0 7732013035) ALK PHOS (test code = 77 U/L 34-122 0488747338) ALTv (test code = 17 U/L 5-35 1742-6) AST(SGOT) (test code = 21 U/L 13-40 2494624463) eGFR (test code = mL/min/1.73m2 3788825184) BETTY (test code = BETTY) Association of Glomerular Filtration Rate (GFR) and Staging of Kidney Disease* + --+ --+ ------+| GFR (mL/min/1.73 m2) ?| With Kidney Damage ?| ?Without Kidney Damage+ --------+ --------+ +| ?>90 ?| ?Stage one ?| ? Normal ?+ ---+ ---+ -------+| ?60-89 ?| ?Stage two ?| ? Decreased GFR ? + --+ --+ ------+| ?30-59 ?| ?Stage three ?| ? Stage three ? + --+ --+ ------+| ?15-29 ?| ?Stage four ? | ? Stage four ?+ ---+ ---+ -------+| ?<15 (or dialysis) ? ?| ?Stage five ? | ? Stage five ?+ ---+ ---+ -------+ *Each stage assumes the associated GFR level has been in effect for at least three months. ?Stages 1 to 5, with or without kidney disease, indicate chronic kidney disease. Notes: Determination of stages one and two (with eGFR >59mL/min/1.73 m2) requires estimation of kidney damage for at least three months as defined by structural or functional abnormalities of the kidney, manifested by either:Pathological abnormalities or Markers of kidney damage (including abnormalities in the composition of the blood or urine or abnormalities in imaging tests). Lab Interpretation Abnormal (test code = 14250-7) [facility] Center[facility], [id number] 05:15:36 Test Item Value Reference Range Interpretation Comments LIPASE (test code = 1194705697) 47 U/L 0-220 Lab Interpretation (test code = Normal 47456-0) [facility] CenterCB with [id number] 05:04:07 Test Item Value Reference Range Interpretation Comments WBC (test code = See_Comment [Automated 4934-2) message] The sy stem which generated this result transmitted reference range : 4.30 - 11.10 10*3/?L. The reference range was not used to interpret this result as normal/abnormal . RBC (test code = See_Comment [Automated 210-8) message] The sy stem which generated this result transmitted reference range : 3.93 - 5.25 10*6/?L. The reference range was not used to interpret this result as normal/abnormal . HGB (test code = 12.2 g/dL 11.6-15.0 718-7) HCT (test code = 36.6 % 35.7-45.2 4544-3) MCV (test code = 82.8 fL 80.6-95.5 787-2) MCH (test code = 27.6 pg 25.9-32.8 785-6) MCHC (test code = 33.3 g/dL 31.6-35.1 786-4) RDW-SD (test code = 38.2 fL 39.0-49.9 L 58141-1) RDW-CV (test code = 12.5 % 12.0-15.5 788-0) PLT (test code = See_Comment [Automated 777-3) message] The sy stem which generated this result transmitted reference range : 166 - 358 10*3/ ?L. The reference r montserrat was not used to interpret this result as normal/abnormal . MPV (test code = 8.7 fL 9.5-12.9 L 17614-7) NRBC/100 WBC (test See_Comment [Automat ed code = 2823393183) message] The system which generated this result transmitted reference range : 0.0 - 10.0 /100 WBCs. The refer ence range was not u sed to interpret th is result as normal/abnormal . NRBC x10^3 (test code <0.01 See_Comment [Auto mated = 6797471078) message] The s ystem which generated this result transmitted reference range : 10*3/?L. The reference range was not used to interpret this result as normal/abnormal . GRAN MAT (NEUT) % 68.3 % (test code = 770-8) IMM GRAN % (test code 0.40 % = 3134085522) LYMPH % (test code = 22.6 % 736-9) MONO % (test code = 6.2 % 5905-5) EOS % (test code = 1.9 % 713-8) BASO % (test code = 0.6 % 706-2) GRAN MAT x10^3(ANC) 6.14 10*3/uL 1.88-7.09 (test code = 5995227110) IMM GRAN x10^3 (test 0.04 10*3/uL 0.00-0.06 code = 6878421573) LYMPH x10^3 (test code 2.03 10*3/uL 1.32-3.29 = 731-0) MONO x10^3 (test code 0.56 10*3/uL 0.33-0.92 = 742-7) EOS x10^3 (test code = 0.17 10*3/uL 0.03-0.39 711-2) BASO x10^3 (test code 0.05 10*3/uL 0.01-0.07 = 704-7) Lab Interpretation Abnormal (test code = 97583-1) [facility] CenterPOCT [id number] 04:31:00 Test Item Value Reference Range Interpretation Comments POCT PREG (test code = 1605) negative On board controls acceptable with present C Line (test code = 3574) POCT PREG LOT # (test code = [id number]) POCT PREG TEST DATE (test code = 3576) Lab Interpretation (test code = Normal 72082-5) [facility] CenterUS HEAD [id number] 22:21:26Impression: No acute abnormalities evident. No abnormal fluid collections visualizedsonographically.RL: 460 End of Report Ordering Physician: CHRIS CURIEL History: ?Cutaneous abscess of the neck Technique: Ultrasound of the neck Technical quality: Adequate Comparison: None Findings: ? Scanning was performed over the symptomatic area in the neck bilaterally.No loculated fluid collection is seen to suggest the presence of abscess.Numerous morphologically normal lymph nodes are seen bilaterally. Bothsubmandibular glands were imaged and appear sonographically unremarkable.No soft tissue masses are identified. [facility], Radiant Results Inft User - 09/02/2020 5:22 PM CDT Ordering Physician: GABE CURIELHistory: Cutaneous abscess of the neckTechnique: Ultrasound of the neckTechnical quality: AdequateComparison: NoneFindings: Scanning was performed over the symptomatic area in the neck bilaterally.No loculated fluid collection is seen to suggest the presence of abscess.Numerous morphologically normal lymph nodes are seen bilaterally. Bothsubmandibular glands were imaged and appear sonographically unremarkable.No soft tissue masses are identified.IMPRESSIONImpression:No acute abnormalities evident. No abnormal fluid collections visualizedsonographically.RL: 460End of Report [facility] - Draw no more than 60 minutes before the 0500 dose.2020-08-26 10:31:25 Test Item Value Reference Range Interpretation Comments VANCO TROUGH (test code 7.5 ug/mL 10.0-20.0 L = 7277871244) BETTY (test code = BETTY) Toxic Range: ?>20 ug/mL 15-20 ug/mL is recommended for severe infection or when Vancomycin FABI is greater than or equal to 2. Lab Interpretation (test Abnormal code = 48461-5) [facility] METABOLIC PANEL (NA, K, CL, CO2, GLUCOSE, BUN, CREATININE, CA)2020-08-26 10:26:05 Test Item Value Reference Range Interpretation Comments NA (test code = 139 mmol/L 135-145 3719334622) K (test code = 3.8 mmol/L 3.5-5.0 5751751188) CL (test code = 106 mmol/L 98-108 8002894023) CO2 TOTAL (test code 28 mmol/L 23-31 = 7400842153) AGAP (test code = 2-16 0828664896) BUN (test code = 8 mg/dL 7-23 6073924247) GLUCOSE (test code = 98 mg/dL 70-110 3471366598) CREATININE (test code 0.57 mg/dL 0.50-1.04 = 7244096299) CALCIUM (test code = 8.7 mg/dL 8.6-10.6 1045976395) eGFR (test code = mL/min/1.73m2 6446506649) BETTY (test code = BETTY) Association of Glomerular Filtration Rate (GFR) and Staging of Kidney Disease* + + +- +| GFR (mL/min/1.73 m2) ?| With Kidney Damage ?| ?Without Kidney Damage+ ------+ ----+ ------+| ?>90 ?| ?Stage one ?| ? Normal ?+ -+ + -+| ?60-89 ?| ?Stage two ?| ? Decreased GFR ? + + +- +| ?30-59 ?| ?Stage three ?| ? Stage three ? + + +- +| ?15-29 ?| ?Stage four ? | ? Stage four ?+ -+ + -+| ?<15 (or dialysis) ? ?| ?Stage five ? | ? Stage five ?+ -+ + -+ *Each stage assumes the associated GFR level has been in effect for at least three months. ?Stages 1 to 5, with or without kidney disease, indicate chronic kidney disease. Notes: Determination of stages one and two (with eGFR >59mL/min/1.73 m2) requires estimation of kidney damage for at least three months as defined by structural or functional abnormalities of the kidney, manifested by either:Pathological abnormalities or Markers of kidney damage (including abnormalities in the composition of the blood or urine or abnormalities in imaging tests). [facility] WITH [id number] 10:04:45 Test Item Value Reference Range Interpretation Comments WBC (test code = See_Comment [Automated 3690-2) message] The sy stem which generated this result transmitted reference range : 4.30 - 11.10 10*3/?L. The reference range was not used to interpret this result as normal/abnormal . RBC (test code = See_Comment [Automated 449-8) message] The sy stem which generated this result transmitted reference range : 3.93 - 5.25 10*6/?L. The reference range was not used to interpret this result as normal/abnormal . HGB (test code = 11.6 g/dL 11.6-15.0 718-7) HCT (test code = 35.3 % 35.7-45.2 L 4544-3) MCV (test code = 82.7 fL 80.6-95.5 787-2) MCH (test code = 27.2 pg 25.9-32.8 785-6) MCHC (test code = 32.9 g/dL 31.6-35.1 786-4) RDW-SD (test code = 37.1 fL 39.0-49.9 L 26761-4) RDW-CV (test code = 12.2 % 12.0-15.5 788-0) PLT (test code = See_Comment [Automated 777-3) message] The sy stem which generated this result transmitted reference range : 166 - 358 10*3/ ?L. The reference r montserrat was not used to interpret this result as normal/abnormal . MPV (test code = 8.6 fL 9.5-12.9 L 95171-5) NRBC/100 WBC (test See_Comment [Automat ed code = 6512468474) message] The system which generated this result transmitted reference range : 0.0 - 10.0 /100 WBCs. The refer ence range was not u sed to interpret th is result as normal/abnormal . NRBC x10^3 (test code <0.01 See_Comment [Auto mated = 0779440422) message] The s ystem which generated this result transmitted reference range : 10*3/?L. The reference range was not used to interpret this result as normal/abnormal . GRAN MAT (NEUT) % 53.0 % (test code = 770-8) IMM GRAN % (test code 0.10 % = 1331167501) LYMPH % (test code = 36.5 % 736-9) MONO % (test code = 5.2 % 5905-5) EOS % (test code = 4.8 % 713-8) BASO % (test code = 0.4 % 706-2) GRAN MAT x10^3(ANC) 3.78 10*3/uL 1.88-7.09 (test code = 3896952408) IMM GRAN x10^3 (test <0.03 0.00-0.06 code = 6071549907) LYMPH x10^3 (test code 2.60 10*3/uL 1.32-3.29 = 731-0) MONO x10^3 (test code 0.37 10*3/uL 0.33-0.92 = 742-7) EOS x10^3 (test code = 0.34 10*3/uL 0.03-0.39 711-2) BASO x10^3 (test code 0.03 10*3/uL 0.01-0.07 = 704-7) Lab Interpretation Abnormal (test code = 99579-9) [facility] - Draw within 30 minutes prior to 3RD dose.2020-08-25 23:09:01 Test Item Value Reference Range Interpretation Comments VANCO TROUGH (test code 5.6 ug/mL 10.0-20.0 L = 7089447625) BETTY (test code = BETTY) Toxic Range: ?>20 ug/mL 15-20 ug/mL is recommended for severe infection or when Vancomycin FABI is greater than or equal to 2. Lab Interpretation (test Abnormal code = 58323-1) [facility] COVID [id number] 16:48:37COVID DMT InterpretationInterpretation/Recommendations:Molecular NAAT Tests for Active Infection with the SARS-CoV-2 Virus:The patient has currently tested negative for the SARS-CoV-2 virus that causesCOVID-19 illness. This most likely indicates that the patient does not have an active infection withthe SARS-CoV-2 virus. However, infection is not completely ruled out as the false negative rate for molecular NAAT testing using a nasopharyngeal sample can be up to 30%, mostly dependent on the timingof sample collection in relation to illness onset and any deficiencies in sampling techniques. If the patient has symptoms concerning for COVID-19 illness, a repeat NAAT test (PCR, Rapid ID Now, etc.) should be performed, at which time the SARS-CoV-2 virus - if present - may have reached a detectable viral load (usually peaking by the end of the first week of symptoms). Tests for IgM and/or IgG Antibodies to the SARS-CoV-2 Virus:Testing for IgM and IgG antibodies approximately 3 weeks after illness o nset will likely indicate if the patient has produced antibodies to the SARS-CoV-2 virus. However, some patients may take longer to develop detectable antibodies, while others infected with SARS-CoV-2 may never develop antibodies, particularly those who have had mild or asymptomatic illness. Of note, if the patient has been vaccinated earlier than 1-2 weeks prior to antibody testing, any positive SARS-CoV-2 IgG antibody result is likely due to vaccination. The specific duration and strength of immunity from SARS-CoV-2 IgG antibodies is highly variable between individuals and is dependent on a variety of factors, including infection vs. vaccination response, initial infection severity, the strengthof the patient's own immune system, and the variants to which the patient has been exposed. ? ------- Interpretation Result Comments:These interpretation comments are based upon all COVID-19 testing the patient has had at [facility], includingmolecular NAAT testing (more commonly known as PCR testing and Rapid ID Now testing) and antibody testing. It does not take into account any testing that a patient has had outside of the [facility] medical record. [facility] LABORATORY SERVICESCOVID XpcmmsuNFLM-JmD-3 Rapid ID NOW (no units) ? ? Date ? Value ? 08/24/2020 ? Not Detected ? [facility] (NA, K, CL, CO2, GLUCOSE, BUN, CREATININE, CA)2020-08-25 12:06:44 Test Item Value Reference Range Interpretation Comments NA (test code = 137 mmol/L 135-145 5559370012) K (test code = 3.7 mmol/L 3.5-5.0 7843343350) CL (test code = 105 mmol/L 98-108 6261132787) CO2 TOTAL (test code 27 mmol/L 23-31 = 5610482442) AGAP (test code = 2-16 0970004891) BUN (test code = 14 mg/dL 7-23 0382981779) GLUCOSE (test code = 102 mg/dL 70-110 1311085769) CREATININE (test code 0.57 mg/dL 0.50-1.04 = 8301747705) CALCIUM (test code = 8.6 mg/dL 8.6-10.6 3009328406) eGFR (test code = mL/min/1.73m2 7135206618) BETTY (test code = BETTY) Association of Glomerular Filtration Rate (GFR) and Staging of Kidney Disease* + + +- +| GFR (mL/min/1.73 m2) ?| With Kidney Damage ?| ?Without Kidney Damage+ ------+ ----+ ------+| ?>90 ?| ?Stage one ?| ? Normal ?+ -+ + -+| ?60-89 ?| ?Stage two ?| ? Decreased GFR ? + + +- +| ?30-59 ?| ?Stage three ?| ? Stage three ? + + +- +| ?15-29 ?| ?Stage four ? | ? Stage four ?+ -+ + -+| ?<15 (or dialysis) ? ?| ?Stage five ? | ? Stage five ?+ -+ + -+ *Each stage assumes the associated GFR level has been in effect for at least three months. ?Stages 1 to 5, with or without kidney disease, indicate chronic kidney disease. Notes: Determination of stages one and two (with eGFR >59mL/min/1.73 m2) requires estimation of kidney damage for at least three months as defined by structural or functional abnormalities of the kidney, manifested by either:Pathological abnormalities or Markers of kidney damage (including abnormalities in the composition of the blood or urine or abnormalities in imaging tests). [facility] with [id number] 11:39:04 Test Item Value Reference Range Interpretation Comments WBC (test code = See_Comment [Automated 3290-2) message] The sy stem which generated this result transmitted reference range : 4.30 - 11.10 10*3/?L. The reference range was not used to interpret this result as normal/abnormal . RBC (test code = See_Comment [Automated 599-8) message] The sy stem which generated this result transmitted reference range : 3.93 - 5.25 10*6/?L. The reference range was not used to interpret this result as normal/abnormal . HGB (test code = 11.7 g/dL 11.6-15.0 718-7) HCT (test code = 35.6 % 35.7-45.2 L 4544-3) MCV (test code = 84.0 fL 80.6-95.5 787-2) MCH (test code = 27.6 pg 25.9-32.8 785-6) MCHC (test code = 32.9 g/dL 31.6-35.1 786-4) RDW-SD (test code = 38.3 fL 39.0-49.9 L 95711-7) RDW-CV (test code = 12.5 % 12.0-15.5 788-0) PLT (test code = See_Comment [Automated 727-3) message] The sy stem which generated this result transmitted reference range : 166 - 358 10*3/ ?L. The reference r montserrat was not used to interpret this result as normal/abnormal . MPV (test code = 8.8 fL 9.5-12.9 L 30513-1) NRBC/100 WBC (test See_Comment [Automat ed code = 6717141243) message] The system which generated this result transmitted reference range : 0.0 - 10.0 /100 WBCs. The refer ence range was not u sed to interpret th is result as normal/abnormal . NRBC x10^3 (test code <0.01 See_Comment [Auto mated = 0755096899) message] The s ystem which generated this result transmitted reference range : 10*3/?L. The reference range was not used to interpret this result as normal/abnormal . GRAN MAT (NEUT) % 57.1 % (test code = 770-8) IMM GRAN % (test code 0.10 % = 7364027371) LYMPH % (test code = 33.5 % 736-9) MONO % (test code = 5.3 % 5905-5) EOS % (test code = 3.6 % 713-8) BASO % (test code = 0.4 % 706-2) GRAN MAT x10^3(ANC) 4.44 10*3/uL 1.88-7.09 (test code = 3645926045) IMM GRAN x10^3 (test <0.03 0.00-0.06 code = 1808367660) LYMPH x10^3 (test code 2.60 10*3/uL 1.32-3.29 = 731-0) MONO x10^3 (test code 0.41 10*3/uL 0.33-0.92 = 742-7) EOS x10^3 (test code = 0.28 10*3/uL 0.03-0.39 711-2) BASO x10^3 (test code 0.03 10*3/uL 0.01-0.07 = 704-7) Lab Interpretation Abnormal (test code = 13100-4) [facility]2020-08-24 23:13:31 Test Item Value Reference Range Interpretation Comments HGB A1C (test code = 5.4 % 4.0-5.7 4548-4) BETTY (test code = BETTY) Reference RangesNormal: <5.7%Prediabetes: 5.7 - 6.4%Diabetes: > 6.5% Lab Interpretation (test Normal code = 93475-4) [facility] [id number] 22:02:30 Mild subcutaneous stranding is seen in the submental region, without afluid collection. This can beseen with cellulitis/inflammation. Noextension deep to the mylohyoid/floor of the mouth. Mildly enlarged level 1 lymph nodes are also identified bilaterally. Theseare likely reactive. I, Radha Aguilar MD., have reviewed this study and agree with the abovereport.CT SOFT TISSUE NECK W CONTRAST HISTORY: 29-year-old female presented with Neck abscess, deep tissueLudwigs COMPARISON: None. Technique: CT soft tissue neck with contrast. FINDINGS: Mild subcutaneous stranding is seen in the submental region, without afluid collection. Mildly enlarged level 1 lymph nodes are also identifiedbilaterally. The nasopharynx, oropharynx, hypopharynx and larynx are patent withoutasymmetric soft tissue density.The trachea and cervical esophagus areunremarkable. The visualized portions of the oral tongue and floor of mouth areunremarkable. The parotid and submandibular salivary glands are unremarkable. No stone isseen along the course of the Donna or Alma duct. The thyroid gland isunremarkable. ? The visualized lung apices are clear. [facility], Radiant Results Inft User - 08/24/2020 5:[address] SOFT TISSUE NECK W CONTRASTHISTORY: 29-year-old female presented with Neck abscess, deep tissueLudwigsCOMPARISON: None.Technique: CT soft tissue neck with contrast. FINDINGS:Mild subcutaneous stranding is seen in the submental region, without afluid collection. Mildly enlarged level 1 lymph nodes are also identifiedbilaterally.The nasopharynx, oropharynx, hypopharynx and larynx are patent withoutasymmetric soft tissue density. The trachea and cervical esophagus areunremarkable.The visualized portions of the oral tongue and floor of mouth areunremarkable.The parotid and submandibular salivary glands are unremarkable. No stone isseen along the course of the Donna or Alma duct. The thyroid gland isunremarkable. The visualized lung apices are clear.IMPRESSIONMild subcutaneous stranding is seen in the submental region, without afluid collection. This can be seen with cellulitis/inflammation. Noextension deep to the mylohyoid/floor of the mouth. Mildly enlarged level 1 lymph nodes are also identified bilaterally. Theseare likely reactive. I, Radha Aguilar MD., have reviewed this study and agree with the abovereport.[facility]APID TESTING)2020-08-24 20:29:17 Test Item Value Reference Range Interpretation Comments SARS-CoV-2 Rapid ID NOW Not Detected Not Detected (test code = 31712-4) BETTY (test code = BETYT) ID NOW COVID-19 Assay is an isothermal nucleic acid amplification test intended for the qualitative detection of nucleic acid from SARS-CoV-2 viral RNA in nasopharyngeal (CREDIT MANAGER) specimens. It is used under Emergency Use Authorization (EUA) by FDA. The limit of detection (LOD) of the assay is 125 Genome Equivalents/mL. A positive result is indicative of the presence of SARS-CoV-2 RNA. ?Clinical correlation with patient history and other diagnostic information is necessary to determine patient infection status. A negative (Not Detected) result does not preclude SARS-CoV-2 infection. In patients with clinical symptoms and other tests that are consistent with SARS-CoV-2 infection, negative results should be treated as presumptive negative and a new specimen should be tested with alternative PCR molecular test. Invalid: Please collect a new specimen for repeat patient testing if clinically indicated. Lab Interpretation Normal (test code = 06650-1) [facility]. METABOLIC PANEL (55213)2020-08-24 20:13:34 Test Item Value Reference Range Interpretation Comments NA (test code = 140 mmol/L 135-145 3021331111) K (test code = 3.6 mmol/L 3.5-5.0 8300777133) CL (test code = 105 mmol/L 98-108 5779450691) CO2 TOTAL (test code 29 mmol/L 23-31 = 8742568587) AGAP (test code = 2-16 4678554565) BUN (test code = 12 mg/dL 7-23 1442760849) GLUCOSE (test code = 97 mg/dL 70-110 3576158098) CREATININE (test code 0.65 mg/dL 0.50-1.04 = 8157127738) TOTAL BILI (test code 0.7 mg/dL 0.1-1.1 = 6097651237) CALCIUM (test code = 9.2 mg/dL 8.6-10.6 6334438844) T PROTEIN (test code 7.6 g/dL 6.3-8.2 = 6349367705) ALBUMIN (test code = 4.4 g/dL 3.5-5.0 7959394391) ALK PHOS (test code = 80 U/L 34-122 4972063990) ALTv (test code = 19 U/L 5-35 2-6) AST(SGOT) (test code 23 U/L 13-40 = 1066767704) eGFR (test code = mL/min/1.73m2 8850648156) BETTY (test code = BETTY) Association of Glomerular Filtration Rate (GFR) and Staging of Kidney Disease* + + +- +| GFR (mL/min/1.73 m2) ?| With Kidney Damage ?| ?Without Kidney Damage+ ------+ ----+ ------+| ?>90 ?| ?Stage one ?| ? Normal ?+ -+ + -+| ?60-89 ?| ?Stage two ?| ? Decreased GFR ? + + +- +| ?30-59 ?| ?Stage three ?| ? Stage three ? + + +- +| ?15-29 ?| ?Stage four ? | ? Stage four ?+ -+ + -+| ?<15 (or dialysis) ? ?| ?Stage five ? | ? Stage five ?+ -+ + -+ *Each stage assumes the associated GFR level has been in effect for at least three months. ?Stages 1 to 5, with or without kidney disease, indicate chronic kidney disease. Notes: Determination of stages one and two (with eGFR >59mL/min/1.73 m2) requires estimation of kidney damage for at least three months as defined by structural or functional abnormalities of the kidney, manifested by either:Pathological abnormalities or Markers of kidney damage (including abnormalities in the composition of the blood or urine or abnormalities in imaging tests). [facility] WITH [id number] 20:01:07 Test Item Value Reference Range Interpretation Comments WBC (test code = See_Comment [Automated 6690-2) message] The sy stem which generated this result transmitted reference range : 4.30 - 11.10 10*3/?L. The reference range was not used to interpret this result as normal/abnormal . RBC (test code = See_Comment [Automated 789-8) message] The sy stem which generated this result transmitted reference range : 3.93 - 5.25 10*6/?L. The reference range was not used to interpret this result as normal/abnormal . HGB (test code = 12.9 g/dL 11.6-15.0 718-7) HCT (test code = 40.0 % 35.7-45.2 4544-3) MCV (test code = 84.9 fL 80.6-95.5 787-2) MCH (test code = 27.4 pg 25.9-32.8 785-6) MCHC (test code = 32.3 g/dL 31.6-35.1 786-4) RDW-SD (test code = 38.3 fL 39.0-49.9 L 73534-6) RDW-CV (test code = 12.4 % 12.0-15.5 788-0) PLT (test code = See_Comment [Automated 777-3) message] The sy stem which generated this result transmitted reference range : 166 - 358 10*3/ ?L. The reference r montserrat was not used to interpret this result as normal/abnormal . MPV (test code = 8.2 fL 9.5-12.9 L 87808-9) NRBC/100 WBC (test See_Comment [Automat ed code = 4072347246) message] The system which generated this result transmitted reference range : 0.0 - 10.0 /100 WBCs. The refer ence range was not u sed to interpret th is result as normal/abnormal . NRBC x10^3 (test code <0.01 See_Comment [Auto mated = 7560290716) message] The s ystem which generated this result transmitted reference range : 10*3/?L. The reference range was not used to interpret this result as normal/abnormal . GRAN MAT (NEUT) % 66.5 % (test code = 770-8) IMM GRAN % (test code 0.40 % = 9152126508) LYMPH % (test code = 24.5 % 736-9) MONO % (test code = 4.9 % 5905-5) EOS % (test code = 3.2 % 713-8) BASO % (test code = 0.5 % 706-2) GRAN MAT x10^3(ANC) 4.93 10*3/uL 1.88-7.09 (test code = 6276051932) IMM GRAN x10^3 (test 0.03 10*3/uL 0.00-0.06 code = 0983582662) LYMPH x10^3 (test code 1.82 10*3/uL 1.32-3.29 = 731-0) MONO x10^3 (test code 0.36 10*3/uL 0.33-0.92 = 742-7) EOS x10^3 (test code = 0.24 10*3/uL 0.03-0.39 711-2) BASO x10^3 (test code 0.04 10*3/uL 0.01-0.07 = 704-7) Lab Interpretation Abnormal (test code = 31834-0) [facility] [id number] 19:28:00 Test Item Value Reference Range Interpretation Comments POCT PREG (test code = 1605) negative On board controls acceptable with present C Line (test code = 3574) POCT PREG LOT # (test code = 3575) [id number] POCT PREG TEST DATE (test 02/04/2022 code = 3576) Lab Interpretation (test code = Normal 35179-0) [facility]"
--- NOTE | 2021-02-11 01:59 | ER ---
Nurse's Notes [facility] Name: Omayra Parra Age: 30 yrs Sex: Female : 1990 Arrival Date: 02/10/2021 Time: 20:20 Bed 27 Private MD: Diagnosis: Sinusitis. Exposed to Covid 19 Presentation: 02/10 21:36 Chief complaint: Patient states: I started feeling fatigued for the last 2 days, I vc1 haven't felt well all day. I got a phone call saying that my friend was Covid positive and I was around her Sunday. Coronavirus screen: fatigue, headache, nausea, [place] dizzy Client presents with at least one sign or symptom that may indicate coronavirus-19. Standard/surgical mask placed on the client. Ebola Screen: No symptoms or risks identified at this time. Initial Sepsis Screen: Does the patient meet any 2 criteria? No. Patient's initial sepsis screen is negative. Does the patient have a suspected source of infection? No. Patient's initial sepsis screen is negative. Risk Assessment: Do you want to hurt yourself or someone else? Patient reports no desire to harm self or others. Onset of symptoms was February 08, 2021. 21:36 Method Of Arrival: Ambulatory vc1 21:36 Acuity: GAYE 4 vc1 Triage Assessment: 21:39 General: Appears in no apparent distress. uncomfortable, Behavior is calm, cooperative, vc1 appropriate for age. Pain: Complains of pain in "All over". Respiratory: Breath sounds are clear bilaterally. 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 - Social history:: Smoking status: Patient denies any tobacco usage or history of. Screenin:06 Abuse screen: Denies threats or abuse. Abuse screen: Denies threats or abuse. vc1 Nutritional screening: No deficits noted. Tuberculosis screening: No symptoms or risk factors identified. Fall Risk None identified. Vital Signs: 02/10 21:36 BP 121 / 94; Pulse 76; Resp 20; Temp 97.4; Pulse Ox 99% on R/A; Weight 113.4 kg; Height vc1 5 ft. 3 in. (160.02 cm); Pain 8/10; 21:36 Body Mass Index 44.29 (113.40 kg, 160.02 cm) vc1 ED Course: 20:20 Patient arrived in ED. kc5 21:39 Triage completed. vc1 02/11 00:00 Patient has correct armband on for positive identification. vc1 01:24 Arm band placed on right wrist. vc1 01:44 Arnie Henderson MD is Attending Physician. pkl 02:06 No provider procedures requiring assistance completed. Patient did not have IV access vc1 during this emergency room visit. Administered Medications: No medications were administered Outcome: 01:59 Discharge ordered by . pkl 02:06 Discharged to home ambulatory. vc1 02:06 Condition: good 02:06 Discharge instructions given to patient, Instructed on discharge instructions, follow up and referral plans. medication usage, Demonstrated understanding of instructions, follow-up care, medications, Prescriptions given X 1. 02:07 Patient left the ED. vc1 Signatures: Arnie Henderson MD MD pkl Clark, Kasey kc5 Jane Guo, RN RN vc1
--- NOTE | 2021-02-11 01:59 | EDPHYS ---
Physician Documentation [facility] Name: Omayra Parra Age: 30 yrs Sex: Female : 1990 Arrival Date: 02/10/2021 Time: 20:20 Bed 27 Private MD: ED Physician Arnie Hnederson HPI: 02/11 01:53 This 30 yrs old Female presents to ER via Ambulatory with complaints of Cough, pkl Congestion, Sore Throat, Headache, FATIGUE. 01:53 Onset: The symptoms/episode began/occurred 2 day(s) ago. Patient said she was exposed pkl to a friend tested positive for Covid 19 about 4 days ago.. 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 - Social history:: Smoking status: Patient denies any tobacco usage or history of. ROS: 01:53 Eyes: Negative for injury, pain, redness, and discharge. pkl 01:53 ENT: Positive for sore throat. 01:53 Neck: Negative for stiffness. 01:53 Cardiovascular: Negative for chest pain. 01:53 Respiratory: Positive for cough, with no reported sputum. 01:53 Abdomen/GI: Negative for abdominal pain, nausea, vomiting, and diarrhea. 01:53 Back: Negative for acute changes. 01:53 : Negative for urinary symptoms. 01:53 MS/extremity: Negative for acute changes. 01:53 Skin: Negative for rash. 01:53 Neuro: Negative for altered mental status, loss of consciousness. Exam: 01:53 Head/Face: Normocephalic, atraumatic. Eyes: Pupils equal round and reactive to light, pkl extra-ocular motions intact. Lids and lashes normal. Conjunctiva and sclera are non-icteric and not injected. Cornea within normal limits. Periorbital areas with no swelling, redness, or edema. ENT: Nares patent. No nasal discharge, no septal abnormalities noted. Tympanic membranes are normal and external auditory canals are clear. Oropharynx with no redness, swelling, or masses, exudates, or evidence of obstruction, uvula midline. Mucous membranes moist. Neck: Trachea midline, no thyromegaly or masses palpated, and no cervical lymphadenopathy. Supple, full range of motion without nuchal rigidity, or vertebral point tenderness. No Meningismus. Chest/axilla: Normal chest wall appearance and motion. Nontender with no deformity. No lesions are appreciated. Cardiovascular: Regular rate and rhythm with a normal S1 and S2. No gallops, murmurs, or rubs. Normal PMI, no JVD. No pulse deficits. Respiratory: Lungs have equal breath sounds bilaterally, clear to auscultation and percussion. No rales, rhonchi or wheezes noted. No increased work of breathing, no retractions or nasal flaring. Abdomen/GI: Soft, non-tender, with normal bowel sounds. No distension or tympany. No guarding or rebound. No evidence of tenderness throughout. Back: No spinal tenderness. No costovertebral tenderness. Full range of motion. Skin: Warm, dry with normal turgor. Normal color with no rashes, no lesions, and no evidence of cellulitis. MS/ Extremity: Pulses equal, no cyanosis. Neurovascular intact. Full, normal range of motion. Neuro: Awake and alert, GCS 15, oriented to person, place, time, and situation. Cranial nerves II-XII grossly intact. Motor strength 5/5 in all extremities. Sensory grossly intact. Cerebellar exam normal. Normal gait. Vital Signs: 02/10 21:36 BP 121 / 94; Pulse 76; Resp 20; Temp 97.4; Pulse Ox 99% on R/A; Weight 113.4 kg; Height vc1 5 ft. 3 in. (160.02 cm); Pain 8/10; 21:36 Body Mass Index 44.29 (113.40 kg, 160.02 cm) vc1 MDM: 02/11 01:44 Patient medically screened. pkl 01:57 Data reviewed: vital signs, nurses notes. pkl 02/11 00:48 Order name: SARS-COV-2 RT PCR; Complete Time: 01:45 EDMS Administered Medications: No medications were administered Disposition Summary: 02/11/21 01:59 Discharge Ordered Location: Home pkl Problem: new pkl Symptoms: are unchanged pkl Condition: Stable pkl Diagnosis - Sinusitis. Exposed to Covid 19 pkl Followup: pkl - With: Private Physician - When: 2 - 3 days - Reason: Re-evaluation by your physician Discharge Instructions: - Discharge Summary Sheet pkl Forms: - Medication Reconciliation Form pkl - Thank You Letter pkl - Antibiotic Education pkl - Prescription Opioid Use pkl Prescriptions: - Zithromax Z-Ye 250 mg Oral Tablet - take 1 tablet by ORAL route as directed for 5 days Day 1 - take two (2) tablets pkl one time. Day 2, 3, 4 , 5 take one (1) tablet once daily.; 6 tablet; Refills: 0, Product Selection Permitted Signatures: Dispatcher [employer] EDMS Arnie Henderson MD MD pkl Jane Guo RN RN vc1 Corrections: (The following items were deleted from the chart) 00:48 00:41 CORONAVIRUS+BRZ ordered. EDMS EDMS
[2021-02-11 02:15] VITALS: BP 121/94; TEMP 97.4; O2SAT 99
== END 2021-02-11 02:07 | disposition home or self-care (01) ==
LOC: ER 20:19
DX: J32.9 Chronic sinusitis, unspecified (principal); Z20.822 Contact with and (suspected) exposure to COVID-19
CPT/HCPCS: 99282; U0003

== ENCOUNTER 2021-02-16 17:13 | Emergency (ER) | payer SELFPAY ==
--- OUTSIDE RECORDS SUMMARY | 2021-02-16 17:19 | XMS REPORT | Continuity of Care Document ---
:1990 Author Organization [facility] t Address [address] [place] [address] Care Team Providers Name Role Phone RADIOLOGY [...] y of treatment [place] [facility] Missed Missed Disease Active Univers menses menses 9-16 ity of 00:: [place] [facility] Branch History of History of Disease Active U nivers anxiety anxiety 9-16 ity of 00:00: [place] [facility] Tobacco Tobacco Disease Active Univers use use 9-16 ity of disorder disorder 00:00: [place] [facility] General General Disease Active Overview: Univ ers counseling counseling 11-01 Formattin ity of and advice and advice 00:00: g of this [facility] note Medical contracept contracept might be Branch jamison jamison different management management from the original. 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 Generalize Generalize Disease Active U nivers d anxiety d anxiety 9 ity of disorder disorder 00:00: [place] [facility] Morbid Morbid Disease Active Univers obesity obesity 9 ity of 00:00: [place] [facility] Allergies, Adverse Reactions, Alerts Allergy Allergy Status Severity Reaction(s) Onset Inactive Treating Comm ents Source Name Type Date Date Clinician MORPHINE DRUG Active Low Anxiety Univers INGREDI 7- ity of 00:00: [place] [facility] Morphine Propensi Active Nausea Univer s ty to and/or 08-24 ity of adverse Vomiting 00:00: [place] reaction 00 Medical s Branch NO KNOWN Drug Active Univers ALLERGIE Class ity of S [facility] Social History Social Habit Start Date Stop Date Quantity Comments Source Exposure to Not sure [facility] SARS-CoV-2 (event) [facility] Cigarettes smoked 2020-08-24 2020-08-24 Univers ity of current (pack per 00:00:00 00:00:00 ) - Reported Branch Cigarette 2020-08-24 2020-08-24 University of pack-years 00:00:00 00:00:00 [facility] Tobacco use and 2020-08-24 2020-08-24 Never used Universit y of exposure 00:00:00 00:00:00 [facility] Alcohol intake 2020-08-24 2020-08-24 Current drinker Unive rsity of 00:00:00 00:00:00 of alcohol [facility] (finding) Branch History SDOH 2020-08-24 2020-08-24 21 University o f Education 00:00:00 00:00:00 [facility] Tobacco Comment 2020-08-24 2020-08-24 quit last week Unive rsity of 00:00:00 00:00:00 [facility] History of tobacco 2012-02-02 Cigarette Smoker University of use 00:00:00 [facility] Sex Ass[birth year] At [birth year] Universit y of 00:00:00 00:00:00 [facility] Smoking Status Start Date Stop Date Source Current every day smoker 2020-08-24 00:00:00 Uni [facility] Current some day smoker 2017-09-13 00:00:00 [facility] Medications Ordered Filled Start Stop Current Ordering Indication Dosage Frequency Signature Comments Components Source Medication Medication Date Date Medication? Clinician (SIG) Name Name ketorolac No 30mg 30 mg, Unive rs (TORADOL) 09-25 Slow IV ity of injection 09:15: 08:17 Push, [place] 30 mg 00 :00 ONCE, 1 Medical dose, Sat [facility] 09/25/20 at 0415, Routine
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 Restricted medication : GERALDINE GALVAN ondansetron No 4mg 4 mg, Slow Univers (ZOFRAN 09-25 IV Push, ity of (PF)) 08:45: 07:52 ONCE, 1 [place] injection 4 00 :00 dose, Sat Med ical mg 09/25/20 at Branch 0345, MAKAYLA iopamidol 2020- No [id number] 100mL 100 mL, Univers (ISOVUE 09-25 Intravenou ity o f 370-500 mL) 08:00: 06:50 s, ONCE, 1 [place] injection 00 :00 dose, Sat Medic al 100 mL 09/25/20 at Branch 0300, Routine FENTanyl PF No 50ug 50 mcg, Un tana (SUBLIMAZE 09-25 Slow IV ity o f (PF)) 07:30: 06:42 Push, [place] injection 00 :00 ONCE, 1 Medical 50 mcg dose, Sat [facility] 09/25/20 at 0230, Routine ondansetron 2020- No [...] at Branch 0230, MAKAYLA dicyclomine 2020-0 Yes [id number] 20mg Take 1 Univers 20 mg 8-21 tablet by ity of tablet 00:00: mouth [place] 00 every 6 Medical (six) Branch hours as needed for Abdominal pain. ondansetron 0 Yes [id number] 4mg Take 1 Univers (ZOFRAN) 4 8-21 [...] Until Discontinu ed, Routine omeprazole 2020-0 Yes [id number] 20mg Take 1 Univers 20 mg 7-23 capsule by ity of capsule 00:00: mouth [place] 00 daily. [facility] Branch omeprazole 2020-0 Yes [id number] 20mg Take 1 Univers 20 mg 7-23 capsule by ity of capsule 00:00: mouth [place] 00 daily. [facility] Branch omeprazole 2020-0 Yes [id number] 20mg Take 1 Univers 20 mg 7-23 capsule by ity of capsule 00:00: mouth [place] 00 daily. [facility] Branch omeprazole 2020-0 Yes [id number] 20mg Take 1 Univers 20 mg 7-23 capsule by ity of capsule 00:00: mouth [place] 00 daily. [facility] omeprazole 2020-0 Yes [id number] 20mg Take 1 Univers 20 mg 7-23 capsule by ity of capsule 00:00: mouth [place] 00 daily. [facility] omeprazole 2020-0 2021- No [id number] 20mg Take 1 Univers 20 mg 7-23 [...] i ty of etamine 16:14: 00:00 (two) [place] (ADDERALL) 31 :00 times Medical 20 mg daily. Branch tablet PROMETHAZIN 2020- No Take by U dmitriy E HCL 08-26 mouth. ity of (PROMETHAZI 16:08: 00:00 [place] NE ORAL) 03 :00 Medical Branch Hyoscyamine 2020- No Take by U dmitriy Sulfate 08-26 mouth. ity of (ANASPAZ) 16:08: 00:00 [place] 0.125 mg 03 :00 Medical TbDL Branch omeprazole 2020- No 20mg Take 20 mg Univers (PRILOSEC) 08-26 by mouth 2 it y of 20 mg 16:08: 00:00 (two) [place] capsule 03 :00 times Medical daily. Branch [...] Until Discontinu ed, Routine, Insomnia sulfamethox Yes [id number] 1{tbl} Take 1 Univers azole-trime 7-22 tablet [...] Indication s: acute pain sulfamethox 202-0 Yes [id number] 1{tbl} Take 1 Univers azole-trime 7-22 tablet [...] Indication s: acute pain sulfamethox 2020-0 Yes [id number] 1{tbl} Take 1 Univers azole-trime 7-22 tablet [...] Indication s: acute pain sulfamethox 2020-0 Yes [id number] 1{tbl} Take 1 Univers azole-trime 7-22 tablet [...] Indication s: acute pain sulfamethox 2020-0 Yes [id number] 1{tbl} Take 1 Univers azole-trime 7-22 tablet [...] Indication s: acute pain sulfamethox 2020- No [id number] 1{tbl} Take 1 Univers azole-trime 7-22 -22 [...] ity of 1,000 mg in 01:15: Piggyback, [place] NaCl 0.9% 00 Q6H ABX, Medica l [...] :00 ONCE, 1 Medical 100 mcg dose, [facility] 08/24/20 at 1845, Routine NaCl 0.9% 2020- [...] IV Push, ity of (PF)) 23:23: Q6HPRN, [place] injection 4 22 Starting Medi yana mg [facility] 08/24/20 at 1823, Until Discontinu ed, Routine, Nausea and Vomiting (N/V) HYDROcodone 2020- No 1{tbl} 1 tablet, Univers -acetaminop 08-24 Oral, ity of hen (NORCO 23:22: 02:05 Q6HPRN, [place] as 5) 5-325 mg 55 :20 Starting Medi yana tablet 1 [facility] tablet 08/24/20 at 1822, Until 08/25/20 at 2105, Routine, Pain (scale 4-6) acetaminoph Yes 650mg 650 mg, Un tana en 08-24 Oral, ity of (TYLENOL) 23:22: Q6HPRN, [place] tablet 650 49 Starting Medic al mg [facility] 08/24/20 at 1822, Until Discontinu ed, Routine, Pain (scale 1-3), Temp > 38.5 C FENTanyl PF 2020- No 50ug 50 mcg, Un tana (SUBLIMAZE 08-2420 Slow IV ity o f (PF)) 20:30: 19:54 Push, [place] injection 00 :00 ONCE, 1 Medical 50 mcg dose, [facility] 08/24/20 at 1530, Routine ondansetron 2020- No 4mg 4 mg, Slow Univers (ZOFRAN 08-24 IV Push, ity of (PF)) 20:30: 19:53 ONCE, 1 [place] injection 4 00 :00 dose, e Med ical mg 08/24/20 at Branch 1530, MAKAYLA iopamidol 2020- No [id number] 100mL 100 mL, Univers (ISOVUE 08-24 Intravenou [...] Date Status Commen ts Source Name Name [facility] 2012-09-25 Completed University of 00:00:00 [facility] TDAP 2012-09-25 Completed University of 00:00:00 [facility] TDAP 2012-09-25 Completed University of 00:00:00 [facility] TDAP 2012-09-25 Completed University of 00:00:00 [facility] TDAP 2012-09-25 Completed University of 00:00:00 [facility] TDAP 2012-09-25 Completed University of 00:00:00 [facility] Meningococcal 2011-01-25 Completed University of Vaccine 00:00:00 [facility] Meningococcal 2011-01-25 Completed University of Vaccine 00:00:00 [facility] Meningococcal 2011-01-25 Completed University of Vaccine 00:00:00 [facility] Meningococcal 2011-01-25 Completed University of Vaccine 00:00:00 [facility] Meningococcal 2011-01-25 Completed University of Vaccine 00:00:00 [facility] Meningococcal 2011-01-25 Completed University of Vaccine 00:00:00 [facility] Rubella 2010-04-01 Completed University of 00:00:00 [facility] Rubella 2010-04-01 Completed University of 00:00:00 [facility] Rubella 2010-04-01 Completed University of 00:00:00 [facility] Rubella 2010-04-01 Completed University of 00:00:00 [facility] Rubella 2010-04-01 Completed University of 00:00:00 [facility] Rubella 2010-04-01 Completed University of 00:00:00 [facility] Td 2006-02-05 Completed University of 00:00:00 [facility] Td 2006-02-05 Completed University of 00:00:00 [facility] Branch Td 2006-02-05 Completed University of 00:00:00 [facility] Branch Td 2006-02-05 Completed University of 00:00:00 [facility] Branch Td 2006-02-05 Completed University of 00:00:00 [facility] Branch Td 2006-02-05 Completed University of 00:00:00 [facility] Branch Varicella 1996-02-06 Completed University of (varivax)(chicken 00:00:00 [facility] edical pox) Branch Varicella 1996-02-06 Completed University of (varivax)(chicken 00:00:00 [facility] edical pox) Branch Varicella 1996-02-06 Completed University of (varivax)(chicken 00:00:00 [facility] edical pox) Branch Varicella 1996-02-06 Completed University of (varivax)(chicken 00:00:00 [facility] edical pox) Branch Varicella 1996-02-06 Completed University of (varivax)(chicken 00:00:00 [facility] edical pox) Branch Varicella 1996-02-06 Completed University of (varivax)(chicken 00:00:00 [facility] edical pox) Branch Vital Signs Vital Name Observation Time Observation Value Comments Source Heart rate 2020-09-25 07:59:00 69 /min [facility] Respiratory rate 2020-09-25 07:59:00 19 /min [facility] Oxygen saturation in 2020-09-25 07:59:00 99 /min [facility] Arterial blood by [facility] Pulse oximetry Branch Systolic blood 2020-09-25 07:00:00 141 mm[Hg] Univer sity of pressure [facility] Diastolic blood 2020-09-25 07:00:00 83 mm[Hg] Unive rsity of pressure [facility] Body temperature 2020-09-25 04:15:00 37.22 Ann-Marie [facility] [place] [facility] Body weight 2020-09-25 04:12:00 117.935 kg [facility] BMI 2020-09-25 04:12:00 47.55 kg/m2 [facility] Heart rate 2020-09-25 07:59:00 69 /min [facility] Respiratory rate 2020-09-25 07:59:00 19 /min Univ ersity of [place] [facility] Oxygen saturation in 2020-09-25 07:59:00 99 /min University of Arterial blood by [place] [employer] yana Pulse oximetry Branch Systolic blood 2020-09-25 [...] 98 /min University of Arterial blood by [facility] Pulse oximetry Branch Body temperature 2020-08-28 02:48:00 37 Ann-Marie Univ ersity of [place] [facility] Body weight 2020-08-28 02:48:00 117.935 kg Universi ty of [place] [facility] BMI 2020-08-28 02:48:00 47.55 kg/m2 Universi ty [facility] [place] [facility] Systolic blood 2020-08-28 04:02:00 139 mm[Hg] Univer sity of pressure [place] [facility] Diastolic blood 2020-08-28 04:02:00 86 mm[Hg] Unive rsity of pressure [place] [facility] Heart rate 2020-08-28 04:02:00 75 /min Universi ty of [place] [facility] Respiratory rate 2020-08-28 04:02:00 19 /min Univ ersity of [place] [facility] Oxygen saturation in 2020-08-28 04:02:00 98 /min University of Arterial blood by [facility] Pulse oximetry Branch Body temperature 2020-08-28 02:48:00 37 Ann-Marie Univ ersity of [place] [facility] Body weight 2020-08-28 02:48:00 117.935 kg Universi ty of [place] [facility] BMI 2020-08-28 02:48:00 47.55 kg/m2 [facility]i ty [facility] [place] [facility] Systolic blood 2020-08-26 12:28:00 124 mm[Hg] Univer sity of pressure [place] [facility] Diastolic blood 2020-08-26 12:28:00 82 mm[Hg] Unive rsity of pressure [place] [facility] Heart rate 2020-08-26 12:28:00 62 /min Universi ty of [place] [facility] Body temperature 2020-08-26 12:28:00 35.94 Ann-Marie Univ ersity of [place] [facility] Respiratory rate 2020-08-26 12:28:00 18 /min Univ ersity of [place] [facility] Oxygen saturation in 2020-08-26 12:28:00 97 /min University of Arterial blood by [place] [employer] [facility] Pulse oximetry Branch Body height 2020-08-24 23:49:00 157.5 cm [facility]i ty [facility] [place] [facility] Body weight 2020-08-24 23:49:00 117.935 kg Universi ty of [place] [facility] BMI 2020-08-24 23:49:00 47.55 kg/m2 Universi ty of [place] [facility] Systolic blood 2020-08-26 12:28:00 124 mm[Hg] Univer sity of pressure [place] [facility] Diastolic blood 2020-08-26 12:28:00 82 mm[Hg] Unive rsity of pressure [place] [facility] Heart rate 2020-08-26 12:28:00 62 /min [facility]i ty [facility] [place] [facility] Body temperature 2020-08-26 12:28:00 35.94 Ann-Marie Univ ersity of [place] [facility] Respiratory rate 2020-08-26 12:28:00 18 /min Univ ersity of [place] [facility] Oxygen saturation in 2020-08-26 12:28:00 97 /min University of Arterial blood by [place] [employer] yana Pulse oximetry Branch Body height 2020-08-24 23:49:00 157.5 cm Universi ty of [place] [facility] Body weight 2020-08-24 23:49:00 117.935 kg Universi ty of [place] [facility] BMI 2020-08-24 23:49:00 47.55 kg/m2 [facility] Procedures Procedure Date / Time Performing Clinician Source Performed CT ABDOMEN PELVIS W 2020-09-25 06:56:20 Geraldine Glavan [facility] CONTRAST [facility] POCT TEST 2020-09-25 04:31:00 Geraldine Galvan [facility] LIPASE 2020-09-25 04:25:00 Geraldine Galvan [facility] COMP. METABOLIC PANEL 2020-09-25 04:25:00 Geraldine Galvan [facility] ([id number]) [facility] CBC WITH DIFF 2020-09-25 04:25:00 Geraldine Galvan [facility] URINALYSIS 2020-09-25 04:25:00 Geraldine Galvan [facility] HB ABO GROUPING 2020-09-25 04:25:00 Geraldine Galvan [facility] CONSENT/REFUSAL FOR 2020-09-25 04:05:50 Doctor Unassigned, [facility] DIAGNOSIS AND TREATMENT [place] [facility] US HEAD NECK 2020-09-02 21:57:52 Requisition, Paper [facility] EKG-12 LEAD 2020-08-28 03:56:58 Geraldine Galvan [facility] BASIC METABOLIC PANEL 2020-08-26 09:41:00 Renée Corbin [facility] (NA, K, CL, CO2, GLUCOSE, Medica l Branch BUN, CREATININE, CA) VANCOMYCIN TROUGH 2020-08-26 09:41:00 Rojelio De La Rosa [facility] CBC WITH DIFF 2020-08-26 09:41:00 Renée Corbin [facility] VANCOMYCIN TROUGH 2020-08-25 21:37:00 Renée Corbin [facility] BASIC METABOLIC PANEL 2020-08-25 11:06:00 Rojelio De La Rosa [facility] (NA, K, CL, CO2, GLUCOSE, Medica l Branch BUN, CREATININE, CA) CBC WITH DIFF 2020-08-25 11:06:00 Rojelio De La Rosa o f [facility] CT SOFT TISSUE NECK W 2020-08-24 20:22:18 Chavo Jose [facility] CONTRAST [facility] BLOOD CULTURE SCREEN 2020-08-24 19:49:00 Chavo Jose [facility] COMP. METABOLIC PANEL 2020-08-24 19:48:00 Chavo Jose [facility] ([id number]) [facility] CBC WITH DIFF 2020-08-24 19:48:00 Chavo Jose [facility] GLYCOSYLATED HEMOGLOBIN 2020-08-24 19:48:00 Chavo Jose [facility] (A1C) Medical Branch COVID-19 (ID NOW RAPID 2020-08-24 19:48:00 Chavo Jose [facility] TESTING) Medical Branch LAB ONLY COVID 2020-08-24 19:48:00 Chavo Jose [facility] INTERPRETATION [facility] BLOOD CULTURE SCREEN 2020-08-24 19:47:00 Chavo Jose [facility] POCT TEST 2020-08-24 19:28:00 Chavo Jose [facility] NOTICE OF PRIVACY 2020-08-24 18:52:34 Doctor Unassdonna, [facility] PRACTICES [facility] CONSENT/REFUSAL FOR 2020-08-24 18:52:20 Doctor Unaveronique, [facility] DIAGNOSIS AND TREATMENT [place] [facility] Encounters Start End Encounter Admission Attending Care Care Encounter Source Date/Time Date/Time Type Type Clinicians Facility Department ID 2020-12-06 Emergency [facility] [id number] Univers 17:05:57 [facility] 2020-09-30 2020-09-30 Outpatient R RADIOLOGY [facility] [id number] Univers 16:00:00 16:00:00 [id number] [facility] 2020-09-24 2020-09-25 Emergency [facility] [id number] 23:09:00 04:02:00 Geraldine Calix [id number] [place] [id number] [place] [id number] 2020-09-24 2020-09-25 Emergency Yaritn, [facility] [id number] Univers 23:09:00 04:02:00 Geraldine Sanches [place] [id number] ity of [place] [id number] [facility] [id number] [facility] 084 Branch 2020-09-02 2020-09-02 Hospital Radiology [facility] [id number] 15:30:00 23:59:00 Encounter [place] [id number] [place] [id number] [place] [id number] 2020-09-02 2020-09-02 Hospital Radiology [facility] [id number] Univers 15:30:00 23:59:00 Encounter [place] [id number] ity of [place] [id number] [facility] [id number] [facility] 806 Branch 2020-09-02 2020-09-02 Outpatient R RADIOLOGY [facility] [id number] Univers 00:00:00 00:00:00 ity of [facility] 2020-08-27 2020-08-27 Emergency [facility] [id number] 21:50:00 23:10:00 Geraldine Sanches [place] [id number] [place] [id number] [place] [id number] 2020-08-27 2020-08-27 Emergency [facility] [id number] Univers 21:50:00 23:10:00 Geraldine Sanches [place] [id number] ity of [place] [id number] [facility] [id number] [address] 2020-08-27 2020-08-27 Emergency X [facility] ERT [id number] Univers 21:50:00 21:50:00 WAKILI ity of [facility] 2020-08-27 2020-08-27 Transition Nikko Dinh [id number] 00:00:00 00:00:00 of Care Prisca Fox [id number] [place] [id number] [id number] 2020-08-27 2020-08-27 Transition Nikko Dinh [id number] Univers 00:00:00 00:00:00 of Care Prisca Fox [id number] it y of [place] 4[place]2.7.2.686 [place] [id number] [facility] 403 Branch 2020-08-24 2020-08-26 [facility] Chavo Jose [facility] [id number] 14:12:00 13:37:00 Encounter MatthewRojelio duran [id number] [place] [id number] [place] [id number] 2020-08-24 2020-08-26 [facility] Chavo Jose [place] [id number] Univers 14:12:00 13:37:00 Encounter Rojelio De La Rosa [id number] ity of [place] [id number] [place] [id number] [facility] 081 Branch 2020-08-24 2020-08-24 Emergency X [facility] ERT [id number] Univers 13:52:00 13:52:00 ity of [facility] 2020-08-24 2020-08-24 Orders Doctor STONE [id number] 00:00:00 00:00:00 Only Unassigned, CRISELDA [id number] [place] [facility] 4.2.7.2.686 [id number] 2020-08-24 2020-08-24 Orders Doctor STONE [id number] Univers 00:00:00 00:00:00 Only Unassigned, CRISELDA [id number] ity of [place] [facility] [id number] [place] as [id number] [address] Results Test Test Test Results Result Source Description Time Comments Comments CT ABDOMEN 2020-09- No acute process Univers ity of PELVIS W 21 identified in the abdomen [place] [facility] CONTRAST 07:53:53 or pelvis. RL: 460 AFC: Branch [id number] Ordering physician: GERALDINE GALVAN Indication: Acute abdominal [...] identified in the abdomen or pelvis.RL: 460AFC: [id number] Type and Screen - ONCE STAT 2020-09-25 05:30:42 Test Item Value Reference Range Interpretation Comme nts ABO & RH (test code = 20) A Positive Pe rformed at [facility] Blood [address] Free: [phone] A No. [id number] IAT (test code = 1185) Negative Perfo rmed at [facility] Blood [address] Free: [phone] A No. [id number] [facility] 05:16:57 Test Item Value Reference Range Interpretation Comments APPEARANCE (test code = Hazy Clear A 5365226617) COLOR (test code = Yellow Yellow 5938056467) PH (test code = 4.8-8.0 6745465379) SP GRAVITY (test code = 1.003-1.030 7143157110) GLU U QUAL (test code = Normal Normal 3608877324) BLOOD (test code = 1+ Negative A 2787969406) KETONES (test code = Negative Negative 3505546402) PROTEIN (test code = Negative Negative 2887-8) UROBILIN (test code = Normal Normal 9328695494) BILIRUBIN (test code = Negative Negative 7217650664) NITRITE (test code = Negative Negative 9766625029) LEUK VASILIY (test code = Negative Negative 2542978610) RBC/HPF (test code = See_Comment [Autom ated message] 6004620928) The system [employer] generated this result transmitted ref erence range: 0 - 3 HP F. The reference range was not used to int erpret this result as normal/abnormal . WBC/HPF (test code = See_Comment [Autom ated message] 0780870453) The system [employer] generated this result transmitted ref erence range: 0 - 5 HP F. The reference range was not used to int erpret this result as normal/abnormal . BACTERIA (test code = Few Negative A 5704716149) MUCOUS (test code = Moderate Negative LPF A 7343604899) SQ EPITH (test code = HPF 6832979754) Lab Interpretation (test Abnormal code = 65073-3) [facility] Met[facility] [id number] 05:15:36 Test Item Value Reference Range Interpretation Comments NA (test code = 140 mmol/L 135-145 5868005848) K (test code = 3.3 mmol/L 3.5-5.0 L 0415400048) CL (test code = 104 mmol/L 98-108 2681619545) CO2 TOTAL (test code = 26 mmol/L 23-31 8480242315) AGAP (test code = 2-16 4056356318) BUN (test code = 16 mg/dL 7-23 7656901613) GLUCOSE (test code = 93 mg/dL 70-110 1160261323) CREATININE (test code = 0.64 mg/dL 0.50-1.04 7877201745) TOTAL BILI (test code = 0.7 mg/dL 0.1-1.9 9731561029) CALCIUM (test code = 9.5 mg/dL 8.6-10.6 1095509562) T PROTEIN (test code = 7.5 g/dL 6.3-8.2 1854899502) ALBUMIN (test code = 4.3 g/dL 3.5-5.0 2956694502) ALK PHOS (test code = 77 U/L 34-122 1557776672) ALTv (test code = 17 U/L 5-35 1742-6) AST(SGOT) (test code = 21 U/L 13-40 3800371505) eGFR (test code = mL/min/1.73m2 8922971847) BETTY (test code = BETTY) Association of [...] tests). Lab Interpretation Abnormal (test code = 57880-1) [facility], [id number] 05:15:36 Test Item Value Reference Range Interpretation Comments LIPASE (test code = 5248144934) 47 U/L 0-220 Lab Interpretation (test code = Normal 65053-6) [facility] [id number] 05:04:07 Test Item Value Reference Range Interpretation Comments WBC (test code = See_Comment [Automated 5029-2) message] The sy stem which generated this result transmitted reference range : 4.30 - 11.10 10*3/?L. The reference range was not used to interpret this result as normal/abnormal . RBC (test code = See_Comment [Automated 587-8) message] The sy stem which generated this [...] (test code = 38.2 fL 39.0-49.9 L 04521-8) RDW-CV (test code = 12.5 % 12.0-15.5 788-0) PLT (test code = See_Comment [Automated 777-3) message] The sy stem which generated this result transmitted reference range : 166 - 358 10*3/ ?L. The reference r montserrat was not used to interpret this result as normal/abnormal . MPV (test code = 8.7 fL 9.5-12.9 L 33236-3) NRBC/100 WBC (test See_Comment [Automat ed code = 9015223595) message] The system which generated this result transmitted reference range : 0.0 - 10.0 /100 WBCs. The refer ence range was not u sed to interpret th is result as normal/abnormal . NRBC x10^3 (test code <0.01 See_Comment [Auto mated = 8822472824) message] The s ystem which generated this result transmitted reference range : 10*3/?L. The reference range was not used to interpret this result as normal/abnormal . GRAN MAT (NEUT) % 68.3 % (test code = 770-8) IMM GRAN % (test code 0.40 % = 7833003827) LYMPH % (test code = 22.6 % 736-9) MONO % (test code = 6.2 % 5905-5) EOS % (test code = 1.9 % 713-8) BASO % (test code = 0.6 % 706-2) GRAN MAT x10^3(ANC) 6.14 10*3/uL 1.88-7.09 (test code = 1856318391) IMM GRAN x10^3 (test 0.04 10*3/uL 0.00-0.06 code = 7947680834) LYMPH x10^3 (test code 2.03 10*3/uL 1.32-3.29 = 731-0) MONO x10^3 (test code 0.56 10*3/uL 0.33-0.92 = 742-7) EOS x10^3 (test code = 0.17 10*3/uL 0.03-0.39 711-2) BASO x10^3 (test code 0.05 10*3/uL 0.01-0.07 = 704-7) Lab Interpretation Abnormal (test code = 22650-7) [facility] [id number] 04:31:00 Test Item Value Reference Range Interpretation Comments POCT PREG (test code = 1605) negative On board controls acceptable with present C Line (test code = 3574) POCT PREG LOT # (test code = [id number]) POCT PREG TEST DATE (test code = 3576) Lab Interpretation (test code = Normal 48669-7) [facility] [id number] 22:21:26Impression: No acute abnormalities evident. No abnormal [...] abnormal fluid collections visualizedsonographically.RL: 460End of Report UnB[facility] StationVancomycin Trough Level - Draw no more than 60 minutes before the 0500 dose.2020-08-26 10:31:25 Test Item Value Reference Range Interpretation Comments VANCO TROUGH (test code 7.5 ug/mL 10.0-20.0 L = 3600429350) BETTY (test code = BETTY) Toxic Range: ?>20 ug/mL 15-20 ug/mL is recommended for severe infection or when Vancomycin FABI is greater than or equal to 2. Lab Interpretation (test Abnormal code = 13479-1) [facility] METABOLIC PANEL (NA, K, CL, CO2, GLUCOSE, BUN, CREATININE, CA)2020-08-26 10:26:05 Test Item Value Reference Range Interpretation Comments NA (test code = 139 mmol/L 135-145 0471088798) K (test code = 3.8 mmol/L 3.5-5.0 7989680475) CL (test code = 106 mmol/L 98-108 9701288177) CO2 TOTAL (test code 28 mmol/L 23-31 = 9701855798) AGAP (test code = 2-16 3675167453) BUN (test code = 8 mg/dL 7-23 6617849865) GLUCOSE (test code = 98 mg/dL 70-110 9707615867) CREATININE (test code 0.57 mg/dL 0.50-1.04 = 7840066199) CALCIUM (test code = 8.7 mg/dL 8.6-10.6 5216479806) eGFR (test code = mL/min/1.73m2 7839190261) BETTY (test code = BETTY) Association of [...] or urine or abnormalities in imaging tests). [facility] WITH [id number] 10:04:45 Test Item Value Reference Range Interpretation Comments WBC (test code = See_Comment [Automated 1190-2) message] The sy stem which generated this result transmitted reference range : 4.30 - 11.10 10*3/?L. The reference range was not used to interpret this result as normal/abnormal . RBC (test code = See_Comment [Automated 779-8) message] The sy stem which generated this [...] (test code = 37.1 fL 39.0-49.9 L 82191-5) RDW-CV (test code = 12.2 % 12.0-15.5 788-0) PLT (test code = See_Comment [Automated 777-3) message] The sy stem which generated this result transmitted reference range : 166 - 358 10*3/ ?L. The reference r montserrat was not used to interpret this result as normal/abnormal . MPV (test code = 8.6 fL 9.5-12.9 L 03628-8) NRBC/100 WBC (test See_Comment [Automat ed code = 4854123120) message] The system which generated this result transmitted reference range : 0.0 - 10.0 /100 WBCs. The refer ence range was not u sed to interpret th is result as normal/abnormal . NRBC x10^3 (test code <0.01 See_Comment [Auto mated = 4671036329) message] The s ystem which generated this result transmitted reference range : 10*3/?L. The reference range was not used to interpret this result as normal/abnormal . GRAN MAT (NEUT) % 53.0 % (test code = 770-8) IMM GRAN % (test code 0.10 % = 0390446285) LYMPH % (test code = 36.5 % 736-9) MONO % (test code = 5.2 % 5905-5) EOS % (test code = 4.8 % 713-8) BASO % (test code = 0.4 % 706-2) GRAN MAT x10^3(ANC) 3.78 10*3/uL 1.88-7.09 (test code = 8085199757) IMM GRAN x10^3 (test <0.03 0.00-0.06 code = 4359746713) LYMPH x10^3 (test code 2.60 10*3/uL 1.32-3.29 = 731-0) MONO x10^3 (test code 0.37 10*3/uL 0.33-0.92 = 742-7) EOS x10^3 (test code = 0.34 10*3/uL 0.03-0.39 711-2) BASO x10^3 (test code 0.03 10*3/uL 0.01-0.07 = 704-7) Lab Interpretation Abnormal (test code = 14239-3) [facility] - Draw within 30 minutes prior to 3RD dose.2020-08-25 23:09:01 Test Item Value Reference Range Interpretation Comments VANCO TROUGH (test code 5.6 ug/mL 10.0-20.0 L = 2426920580) BETTY (test code = BETTY) Toxic Range: ?>20 ug/mL 15-20 ug/mL is recommended for severe infection or when Vancomycin FABI is greater than or equal to 2. Lab Interpretation (test Abnormal code = 63157-5) [facility] ONLY COVID [id number] 16:48:37COVID DMT InterpretationInterpretation/Recommendations:Molecular NAAT Tests for Active [...] COVID-19 testing the patient has had at [facility], includingmolecular NAAT testing (more commonly known as PCR testing and Rapid ID Now testing) and antibody testing. It does not take into account any testing that a patient has had outside of the [facility] medical record. [facility] SERVICESCOVID NuiwjppZPCC-VwN-9 Rapid ID NOW (no units) ? ? Date ? Value ? 08/24/2020 ? Not Detected ? [facility] (NA, K, CL, CO2, GLUCOSE, BUN, CREATININE, CA)2020-08-25 12:06:44 Test Item Value Reference Range Interpretation Comments NA (test code = 137 mmol/L 135-145 0466443513) K (test code = 3.7 mmol/L 3.5-5.0 4296000941) CL (test code = 105 mmol/L 98-108 5200542958) CO2 TOTAL (test code 27 mmol/L 23-31 = 4107829955) AGAP (test code = 2-16 4332542557) BUN (test code = 14 mg/dL 7-23 6910327066) GLUCOSE (test code = 102 mg/dL 70-110 6899784791) CREATININE (test code 0.57 mg/dL 0.50-1.04 = 0812468743) CALCIUM (test code = 8.6 mg/dL 8.6-10.6 8950595008) eGFR (test code = mL/min/1.73m2 5386985234) BETTY (test code = BETTY) Association of [...] or urine or abnormalities in imaging tests). [facility] with [id number] 11:39:04 Test Item Value Reference Range Interpretation Comments WBC (test code = See_Comment [Automated 8390-2) message] The sy stem which generated this result transmitted reference range : 4.30 - 11.10 10*3/?L. The reference range was not used to interpret this result as normal/abnormal . RBC (test code = See_Comment [Automated 799-8) message] The sy stem which generated this [...] (test code = 38.3 fL 39.0-49.9 L 67817-4) RDW-CV (test code = 12.5 % 12.0-15.5 788-0) PLT (test code = See_Comment [Automated 257-3) message] The sy stem which generated this result transmitted reference range : 166 - 358 10*3/ ?L. The reference r montserrat was not used to interpret this result as normal/abnormal . MPV (test code = 8.8 fL 9.5-12.9 L 77652-4) NRBC/100 WBC (test See_Comment [Automat ed code = 9137924264) message] The system which generated this result transmitted reference range : 0.0 - 10.0 /100 WBCs. The refer ence range was not u sed to interpret th is result as normal/abnormal . NRBC x10^3 (test code <0.01 See_Comment [Auto mated = 5992034364) message] The s ystem which generated this result transmitted reference range : 10*3/?L. The reference range was not used to interpret this result as normal/abnormal . GRAN MAT (NEUT) % 57.1 % (test code = 770-8) IMM GRAN % (test code 0.10 % = 8351055709) LYMPH % (test code = 33.5 % 736-9) MONO % (test code = 5.3 % 5905-5) EOS % (test code = 3.6 % 713-8) BASO % (test code = 0.4 % 706-2) GRAN MAT x10^3(ANC) 4.44 10*3/uL 1.88-7.09 (test code = 1857646391) IMM GRAN x10^3 (test <0.03 0.00-0.06 code = 2707041376) LYMPH x10^3 (test code 2.60 10*3/uL 1.32-3.29 = 731-0) MONO x10^3 (test code 0.41 10*3/uL 0.33-0.92 = 742-7) EOS x10^3 (test code = 0.28 10*3/uL 0.03-0.39 711-2) BASO x10^3 (test code 0.03 10*3/uL 0.01-0.07 = 704-7) Lab Interpretation Abnormal (test code = 28648-1) [facility]YCOSYLATED HEM[facility]GLOBIN (A1C)2020-08-24 23:13:31 Test Item Value Reference Range Interpretation Comments HGB A1C (test code = 5.4 % 4.0-5.7 4548-4) BETTY (test code = BETTY) Reference RangesNormal: <5.7%Prediabetes: 5.7 - 6.4%Diabetes: > 6.5% Lab Interpretation (test Normal code = 26025-2) [facility] SOFT TISSUE NECK W [id number] 22:02:30 Mild subcutaneous stranding is seen in [...] along the course of the [place] or [place] duct. The thyroid gland isunremarkable. ? The [...] along the course of the [place] or [place] duct. The thyroid gland isunremarkable. The visualized lung apices are clear.IMPRESSIONMild subcutaneous stranding is seen in the submental region, without afluid collection. This can be seen with cellulitis/inflammation. Noextension deep to the mylohyoid/floor of the mouth. Mildly enlarged level 1 lymph nodes are also identified bilaterally. Theseare likely reactive. I, Radha Aguilar MD., have reviewed this study and agree with the abovereport.[facility]COVID-[facility] (ID NOW RAPID TESTING)2020-08-24 20:29:17 Test Item Value Reference Range Interpretation Comments SARS-CoV-2 Rapid ID NOW Not Detected Not Detected (test code = 69502-4) BETTY (test code = BETTY) ID NOW COVID-19 Assay is an isothermal nucleic acid amplification test intended for the qualitative detection of nucleic acid from SARS-CoV-2 viral RNA in nasopharyngeal (PSYCHOLOGIST EDUCATIONAL) specimens. It is used under Emergency Use [...] indicated. Lab Interpretation Normal (test code = 57850-0) [facility]. METABOLIC PANEL (09996)2020-08-24 20:13:34 Test Item Value Reference Range Interpretation Comments NA (test code = 140 mmol/L 135-145 3607512028) K (test code = 3.6 mmol/L 3.5-5.0 9193888010) CL (test code = 105 mmol/L 98-108 6404749424) CO2 TOTAL (test code 29 mmol/L 23-31 = 0607141424) AGAP (test code = 2-16 7810409067) BUN (test code = 12 mg/dL 7-23 0432313380) GLUCOSE (test code = 97 mg/dL 70-110 1441724050) CREATININE (test code 0.65 mg/dL 0.50-1.04 = 6558655605) TOTAL BILI (test code 0.7 mg/dL 0.1-1.1 = 9117366300) CALCIUM (test code = 9.2 mg/dL 8.6-10.6 9147037080) T PROTEIN (test code 7.6 g/dL 6.3-8.2 = 7224689700) ALBUMIN (test code = 4.4 g/dL 3.5-5.0 3663131421) ALK PHOS (test code = 80 U/L 34-122 9338476276) ALTv (test code = 19 U/L 5-35 2-6) AST(SGOT) (test code 23 U/L 13-40 = 9903695819) eGFR (test code = mL/min/1.73m2 8074498820) BETTY (test code = BETTY) Association of [...] or urine or abnormalities in imaging tests). [facility] WITH [id number] 20:01:07 Test Item Value Reference Range Interpretation [...] (test code = 38.3 fL 39.0-49.9 L 30007-1) RDW-CV (test code = 12.4 % 12.0-15.5 788-0) PLT (test code = See_Comment [Automated 777-3) message] The sy stem which generated this result transmitted reference range : 166 - 358 10*3/ ?L. The reference r montserrat was not used to interpret this result as normal/abnormal . MPV (test code = 8.2 fL 9.5-12.9 L 86956-4) NRBC/100 WBC (test See_Comment [Automat ed code = 3869093587) message] The system which generated this result transmitted reference range : 0.0 - 10.0 /100 WBCs. The refer ence range was not u sed to interpret th is result as normal/abnormal . NRBC x10^3 (test code <0.01 See_Comment [Auto mated = 5313479308) message] The s ystem which generated this result transmitted reference range : 10*3/?L. The reference range was not used to interpret this result as normal/abnormal . GRAN MAT (NEUT) % 66.5 % (test code = 770-8) IMM GRAN % (test code 0.40 % = 9183751525) LYMPH % (test code = 24.5 % 736-9) MONO % (test code = 4.9 % 5905-5) EOS % (test code = 3.2 % 713-8) BASO % (test code = 0.5 % 706-2) GRAN MAT x10^3(ANC) 4.93 10*3/uL 1.88-7.09 (test code = 3022617974) IMM GRAN x10^3 (test 0.03 10*3/uL 0.00-0.06 code = 6083612572) LYMPH x10^3 (test code 1.82 10*3/uL 1.32-3.29 = 731-0) MONO x10^3 (test code 0.36 10*3/uL 0.33-0.92 = 742-7) EOS x10^3 (test code = 0.24 10*3/uL 0.03-0.39 711-2) BASO x10^3 (test code 0.04 10*3/uL 0.01-0.07 = 704-7) Lab Interpretation Abnormal (test code = 37936-6) [facility] [id number] 19:28:00 Test Item Value Reference Range Interpretation Comments POCT PREG (test code = 1605) negative On board controls acceptable with present C Line (test code = 3574) POCT PREG LOT # (test code = 3575) [id number] POCT PREG TEST DATE (test 02/04/2022 code = 3576) Lab Interpretation (test code = Normal 74648-6) [facility]"
[2021-02-16 20:42] LABS: Urine Blood Trace-intact (Negative); Urine Glucose Negative (Negative); Urine Protein Negative (Negative); Urine Specific Gravity >=1.030 (1.005-1.030); Urine pH 5.5 (5.0-7.0)
[2021-02-16 21:11] LABS: Urine Specific Gravity/Preg >1.030 (1.005-1.030)
[2021-02-16 22:13] LABS: Urine Bacteria >50 /HPF (<20); Urine RBC <5 /HPF (NONE SEEN)
--- NOTE | 2021-02-16 22:17 | RAD REPORT ---
EXAM DESCRIPTION: US - BREAST/AXILLA, COMPLETE - 02/16/2021 9:41 pm CLINICAL HISTORY: both breasts;Pain COMPARISON: No comparisons FINDINGS: Full right breast sonography was performed including all 4 quadrants and the retroareolar region. No abnormality identified. IMPRESSION: No abnormality identified. BI-RADS 1: Negative Recommendation: Recommend clinical management.
--- NOTE | 2021-02-16 22:26 | ER ---
Nurse's Notes [facility] Name: Omayra Parra Age: 30 yrs Sex: Female : 1990 Arrival Date: 02/16/2021 Time: 17:14 Bed 25 Private MD: Rosa Rodriguez Diagnosis: UTI/ Urinary tract infection, site not specified;Discharge from nipples Presentation: 02/16 17:39 Chief complaint: Patient states: Nausea x 3 weeks, pelvic pressure when pushing to pee jl7 x2 weeks, lost 10 pounds in 1 week, nipple discharge started this morning. Coronavirus screen: At this time, the client does not indicate any symptoms associated with coronavirus-19. Ebola Screen: No symptoms or risks identified at this time. Initial Sepsis Screen: Does the patient meet any 2 criteria? No. Patient's initial sepsis screen is negative. Does the patient have a suspected source of infection? No. Patient's initial sepsis screen is negative. Risk Assessment: Do you want to hurt yourself or someone else? Patient reports no desire to harm self or others. Onset of symptoms was February 16, 2021. 17:39 Method Of Arrival: Ambulatory [facility] 17:39 Acuity: GAYE 3 jl7 Triage Assessment: 17:42 General: Appears in no apparent distress. uncomfortable, Behavior is calm, cooperative, jl7 appropriate for age. Pain: Complains of pain in right nipple and left nipple Pain currently is 8 out of 10 on a pain scale. GI: Reports nausea. 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 - Social history:: Smoking status: Patient reports the use of cigarette tobacco products, smokes one-half pack cigarettes per day. Screenin:00 Abuse screen: Denies threats or abuse. Denies injuries from another. Nutritional tk1 screening: No deficits noted. Tuberculosis screening: No symptoms or risk factors identified. Never had TB. Possible symptoms: None Risk factors: None. Fall Risk None identified. No fall in past 12 months (0 pts). No secondary diagnosis (0 pts). No IV (0 pts). Ambulatory Aid- None/Bed Rest/Nurse Assist (0 pts). Gait- Normal/Bed Rest/Wheelchair (0 pts) Mental Status- Oriented to own ability (0 pts). Total Arias Fall Scale indicates No Risk (0-24 pts). Assessment: 20:30 General: Appears in no apparent distress. GI: Abdomen is round obese. tk1 21:27 Reassessment: No changes from previously documented assessment. US in for diagnostic. tk1 Reassessment: No drainage, redness, edema, or warmth noted to bilateral breast. Patient does flinch with palpation of areola. Verbalized tenderness. 21:52 Reassessment: No changes from previously documented assessment. Patient and/or family tk1 updated on plan of care and expected duration. Pain level reassessed. Patient is alert, oriented x 3, equal unlabored respirations, skin warm/dry/pink. Reassessment: Patient states, she hasn't eaten all day. Gardner and cranberry juice given. Patient ate 100%. Pain: Denies pain. Vital Signs: 17:39 BP 147 / 89; Pulse 91; Resp 17; Temp 97.2; Pulse Ox 100% on R/A; Weight 113.85 kg; jl7 Height 5 ft. 3 in. (160.02 cm); Pain 8/10; 20:30 BP 135 / 90 RA Supine (auto/reg); Pulse 66 MON; Resp 18; Temp 98.6(O); Pulse Ox 100% on tk1 R/A; 21:59 BP 133 / 84 RA Supine (auto/lg); Pulse 69; Resp 18 S; Pulse Ox 100% on R/A; tk1 17:39 Body Mass Index 44.46 (113.85 kg, 160.02 cm) jl7 [place] Coma Score: 20:30 Eye Response: spontaneous(4). Verbal Response: oriented(5). Motor Response: obeys tk1 commands(6). Total: 15. ED Course: 17:14 Patient arrived in ED. am2 17:15 Rosa Rodriguez is Private Physician. am2 17:42 Triage completed. jl7 17:42 Arm band placed on right wrist. Patient placed in waiting room, Patient notified of jl7 wait time. 19:45 Pulse ox on. NIBP on. Warm blanket. tk1 20:12 Rama Engel FNP-C is [facility]. kb 20:12 Justo Luo MD is Attending Physician. kb 20:29 Treasure Palafox is Primary Nurse. tk1 20:54 No provider procedures requiring assistance completed. tk1 21:41 BREAST/AXILLA, COMPLETE In Process Unspecified. EDMS 21:41 BREAST/AXILLA, COMPLETE In Process Unspecified. EDMS Administered Medications: 22:28 Drug: Macrobid (nitrofurantoin) 100 mg Route: PO; tk1 Intake: 21:59 PO: 250ml (Juice); Total: 250ml. tk1 Output: 20:30 Urine: 80ml (Voided); Total: 80ml. tk1 Outcome: 22:25 Discharge ordered by MD. kb 22:31 Condition: stable tk1 22:42 Patient left the ED. tk1 Addendum: 02/20/2021 07:31 Addendum: Culture Results: Positive urine culture. No further action required. Bacteria e b sensitive to prescribed antibiotic. Signatures: Dispatcher [employer] EDMS Rama Engel FNP-C VP RESEARCH-Francisco Jaime RN RN jl7 Mary Abbott Elizabeth eb Kirby, Tammie tk1 Corrections: (The following items were deleted from the chart) 02/16 21:41 21:40 In radiology for BREAST/AXILLA, LIMITED. EDMS EDMS 21:41 21:40 In radiology for BREAST/AXILLA, LIMITED. EDMS EDMS
--- NOTE | 2021-02-16 22:26 | EDPHYS ---
Physician Documentation [facility] Name: Omayra Parra Age: 30 yrs Sex: Female : 1990 Arrival Date: 02/16/2021 Time: 17:14 Bed 25 Private MD: Rosa Rodriguez ED Physician Justo Luo HPI: 02/16 22:37 This 30 yrs old Female presents to ER via Ambulatory with complaints of Breast Problem kb - discharge, Pelvic Pain, Nausea. 22:37 pt reports discharge from bilateral nipples that started today. Also reports pain at kb end of urination. family history of breast cancer. Onset: The symptoms/episode began/occurred today. Severity of symptoms: At their worst the symptoms were mild in the emergency department the symptoms are unchanged. The patient has not experienced similar symptoms in the past. The patient has not recently seen a physician. 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 - Social history:: Smoking status: Patient reports the use of cigarette tobacco products, smokes one-half pack cigarettes per day. ROS: 22:36 Constitutional: Negative for fever, chills, and weight loss. kb 22:36 : Positive for pain at end of urinating. 22:36 Skin: Positive for discharge from nipples. 22:36 All other systems are negative. Exam: 22:36 Constitutional: This is a well developed, well nourished patient who is awake, alert, kb and in no acute distress. Head/Face: Normocephalic, atraumatic. ENT: Moist Mucous membranes Cardiovascular: Regular rate and rhythm with a normal S1 and S2. No gallops, murmurs, or rubs. No pulse deficits. Respiratory: Respirations even and unlabored. No increased work of breathing. Talking in full sentences Abdomen/GI: Soft, non-tender. No distention Skin: Warm, dry with normal turgor. Normal color. MS/ Extremity: Pulses equal, no cyanosis. Neurovascular intact. Full, normal range of motion. Neuro: Awake and alert, GCS 15, oriented to person, place, time, and situation. Moves all extremities. Normal gait. Psych: Awake, alert, with orientation to person, place and time. Behavior, mood, and affect are within normal limits. 22:36 Chest/axilla: Breasts: nipple discharge, that is mild in both breasts, that is purulent. Vital Signs: 17:39 BP 147 / 89; Pulse 91; Resp 17; Temp 97.2; Pulse Ox 100% on R/A; Weight 113.85 kg; jl7 Height 5 ft. 3 in. (160.02 cm); Pain 8/10; 20:30 BP 135 / 90 RA Supine (auto/reg); Pulse 66 MON; Resp 18; Temp 98.6(O); Pulse Ox 100% on tk1 R/A; 21:59 BP 133 / 84 RA Supine (auto/lg); Pulse 69; Resp 18 S; Pulse Ox 100% on R/A; tk1 17:39 Body Mass Index 44.46 (113.85 kg, 160.02 cm) jl7 Kayla Coma Score: 20:30 Eye Response: spontaneous(4). Verbal Response: oriented(5). Motor Response: obeys tk1 commands(6). Total: 15. MDM: 20:13 Patient medically screened. kb 22:24 Data reviewed: vital signs, nurses notes. Data interpreted: Pulse oximetry: on room air kb is 100 %. Interpretation: normal. Counseling: I had a detailed discussion with the patient and/or guardian regarding: the historical points, exam findings, and any diagnostic results supporting the discharge/admit diagnosis, lab results, radiology results, the need for outpatient follow up, an OB/Gyne specialist, to return to the emergency department if symptoms worsen or persist or if there are any questions or concerns that arise at home. 22:27 ED course: Educated on urgent need for follow up for mammogram. kb 02/16 17:55 Order name: Urine Microscopic Only; Complete Time: 22:22 kb 02/16 20:42 Order name: Urine Dipstick-Ancillary; Complete Time: 20:48 EDMS 02/16 20:44 Order name: Urine --Ancillary (enter results); Complete Time: 21:12 mw2 01/12 22:14 Order name: Urine Culture EDMS 02/16 17:55 Order name: Urine Dipstick-Ancillary (obtain specimen); Complete Time: 22:30 kb 02/16 17:55 Order name: Urine Test (obtain specimen); Complete Time: 22:30 kb 02/16 21:41 Order name: BREAST/AXILLA, COMPLETE; Complete Time: 22:22 EDMS 02/16 21:41 Order name: BREAST/AXILLA, COMPLETE; Complete Time: 22:28 EDMS Administered Medications: 22:28 Drug: Macrobid (nitrofurantoin) 100 mg Route: PO; tk1 Disposition: 02/17 08:03 Co-signature as Attending Physician, Justo Luo MD I agree with the assessment and sp3 plan of care. 08:03 I agree with the assessment and plan of care. sp3 Disposition Summary: 02/16/21 22:25 Discharge Ordered Location: Home kb Condition: Stable kb Diagnosis - UTI/ Urinary tract infection, site not specified kb - Discharge from nipples kb Followup: kb - With: Private Physician - When: 2 - 3 days - Reason: Recheck today's complaints, Continuance of care, Re-evaluation by your physician Followup: kb - With: Emergency Department - When: As needed - Reason: Worsening of condition Discharge Instructions: - Discharge Summary Sheet kb - Urinary Tract Infection, Adult, Snwe-bi-Yvsd kb Forms: - Medication Reconciliation Form kb - Thank You Letter kb - Antibiotic Education kb - Prescription Opioid Use kb Prescriptions: - Macrobid 100 mg Oral Capsule - take 1 capsule by ORAL route every 12 hours for 10 days; 20 capsule; Refills: kb 0, Product Selection Permitted Signatures: Dispatcher [employer] EDMS Rama Engel, PLANT CONTROL AIDE-C NIKOLAI-Francisco Jaime, RN RN jl7 Justo Luo MD MD sp3 Treasure Pal[employer]ox tk1 Corrections: (The following items were deleted from the chart) 02/16 21:03 20:29 Extrmty Nonvasular Limited+US.RAD.BRZ ordered. EDMS EDMS 21:41 21:03 BREAST/AXILLA, LIMITED ordered. EDMS EDMS 21:41 21:08 BREAST/AXILLA, LIMITED ordered. EDMS EDMS
--- NOTE | 2021-02-16 22:26 | RAD REPORT ---
EXAM DESCRIPTION: US - BREAST/AXILLA, COMPLETE - 02/16/2021 9:41 pm CLINICAL HISTORY: PAIN COMPARISON: BREAST/AXILLA, COMPLETE dated 02/16/2021 FINDINGS: Full left breast sonography was performed including all 4 quadrants and the retroareolar r egion. 6 mm x 3 mm hypoechoic nodule in the left breast at the 12 o'clock position. This is consistent with a cyst. IMPRESSION: Small benign left breast cyst. BI-RADS 2: Benign findings Recommendation: Benign left breast cyst. Recommend clinical management for reported breast pain/disch arge .
[2021-02-16] MEDS ORDERED: NITROFURAN MACRO 100 MG CAP PO ONE (22:28)
[2021-02-16 23:11] VITALS: O2SAT 100
[2021-02-16 23:13] VITALS: TEMP 98.6
[2021-02-16 23:14] VITALS: BP 133/84
== END 2021-02-16 22:42 | disposition home or self-care (01) ==
LOC: ER 17:13
DX: N39.0 Urinary tract infection, site not specified (principal); N64.52 Nipple discharge; Z88.5 Allergy status to narcotic agent; Z85.3 Personal history of malignant neoplasm of breast
CPT/HCPCS: 76641; 76642; 81003; 81015; 81025; 87077; 87086; 87088; 87186; 99283

== ENCOUNTER 2021-12-04 14:22 | Emergency (ER) | payer SELFPAY ==
--- OUTSIDE RECORDS SUMMARY | 2021-12-04 14:26 | XMS REPORT | Continuity of Care Document ---
:1990 Author Organization [facility] t Address [address] [place] [address] Care Team Providers Name Role Phone Rosa Rodriguez Primary Care Physician JOSÉ HAQUE Attending Clinician Unavailable Doctor Unassigned, [place] Attending Clinician Unavailable Jacquie Pederson Attending Clinician [phone] JACQUIE NORIEGA Attending Clinician Unavailable Geraldine Galvan MD Attending Clinician Radiology Attending Clinician Unavailable RADIOLOGY Attending Clinician Unavailable GERALDINE GALVAN Attending Clinician Unavailable Prisca Dinh RN Attending Clinician Chavo Jose MD Attending Clinician Rojelio De La Rosa MD Attending Clinician Rojelio De La Rosa MD Admitting Clinician Payers Payer Name Policy Type Policy Number Effective Date Expiration Date Myron bryant [id number] 2021 00:00:00 Problems Condition Condition Condition Status Onset Resolution Last Treating Co mments Source Name Details Category Date Date Treatment Clinician Date Elevated Elevated Disease Active Unive rs blood blood 3-29 ity of pressure pressure 00:00: [place] reading reading 00 Medical without without Branch diagnosis diagnosis of of hypertensi hypertensi on on Cellulitis Cellulitis Disease Active U nivers of of 7-21 [place] of submental [place] Failure of Failure of Disease Active U nivers outpatient outpatient 7-20 [place] of treatment [place] Missed Missed Disease Active Univers menses menses 9-16 ity of 00:00: [place] [facility] History of History of Disease Active U nivers anxiety anxiety 9-16 ity of 00:00: [place] [facility] Tobacco Tobacco Disease Active Univers use use 9-16 ity of disorder disorder 00:00: [place] [facility] General General Disease Active Overview: Univ ers counseling counseling 11-01 Formattin ity of and advice and advice 00:00: g of this [place] for note Medical contracept contracept might be Branch jamison jamison different management management from the original. ICD10 Diagnosis Term Chief Controller Utility Generalize Generalize Disease Active U nivers d anxiety d anxiety 9 ity of disorder disorder 00:00: [place] [facility] Morbid Morbid Disease Active Univers obesity obesity 9 ity of 00:00: [place] 00 [facility] Allergies, Adverse Reactions, Alerts Allergy Allergy Status Severity Reaction(s) Onset Inactive Treating Comm ents Source Name Type Date Date Clinician Morphine Propensi Active Nausea Univer s ty to and/or 08-24 ity of adverse Vomiting 00:00: [place] reaction 00 [facility] Social History Social Habit Start Date Stop Date Quantity Comments Source Exposure to 2021-04-03 2021-05-03 Not sure [facility] SARS-CoV-2 (event) 00:00:00 09:51:00 [facility] Alcohol intake 2021-05-03 2021-05-03 .24 /d University of 00:00:00 00:00:00 [facility] Cigarettes smoked 2020-08-24 2020-08-24 Univers ity of current (pack per 00:00:00 00:00:00 [facility] ) - Reported Branch Cigarette 2020-08-24 2020-08-24 University of pack-years 00:00:00 00:00:00 [facility] Tobacco use and 2020-08-24 2020-08-24 Never used Universit y of exposure 00:00:00 00:00:00 [facility] Education 2020-08-24 2020-08-24 21 University of 00:00:00 00:00:00 [facility] Tobacco Comment 2020-08-24 2020-08-24 quit last week Unive rsity of 00:00:00 00:00:00 [facility] History of tobacco 2012-02-02 2012-02-02 Cigarette Smoker University of use 00:00:00 00:00:00 [facility] Sex [birth year] Universit y of 00:00:00 00:00:00 [facility] Smoking Status Start Date Stop Date Source Current every day smoker 2020-08-24 00:00:00 Uni versity of [facility] Medications Ordered Filled Start Stop Current Ordering Indication Dosage Frequency Signature Comments Components Source Medication Medication Date Date Medication? Clinician (SIG) Name Name dicyclomine 2021- No [id number] 20mg Take 1 Univers 20 mg 09-25 tablet by ity of tablet 00:00: 00:00 mouth [place] 00 :00 every 6 Medical (six) Branch hours as needed for Abdominal pain. ondansetron 2021- No [id number] 4mg Take 1 Univers (ZOFRAN) 4 09-25 tablet by ity of mg tablet 00:00: 00:00 mouth [place] 00 :00 every 8 Medical (eight) Branch hours as needed for Nausea and Vomiting (N/V). omeprazole 2021- No [id number] 20mg Take 1 Univers 20 mg 08-27 capsule by ity of capsule 00:00: 00:00 mouth [place] 00 :00 daily. Medical Branch HYDROcodone 2021- No [id number] 1{tbl} Take 1 U nivers -acetaminop 08-26 tablet by it y of hen 5-325 00:00: 00:00 mouth [place] mg tablet 00 :00 every 6 Medical (six) Branch hours as needed for Pain (scale 4-6) or Pain (scale 7-10). Indication s: acute pain sulfamethox 2021- No [id number] 1{tbl} Take 1 Univers azole-trime 08-26 tablet by it y of thoprim 00:00: 00:00 mouth 2 [place] 800-160 mg 00 :00 (two) Medical per tablet times Branch daily. Immunizations Ordered Immunization Filled Immunization Date Status Commen ts Source Name Name TDAP 2012-09-25 Completed University 00:00:00 [facility] Meningococcal 2011-01-25 Completed [facility] Vaccine 00:00:00 [facility] Rubella 2010-04-01 Completed University 00:00:00 [facility] Td 2006-02-05 Completed [facility] 00:00:00 [facility] Varicella 1996-02-06 Completed [facility] (varivax)(chicken 00:00:00 [facility] edical pox) Branch Vital Signs Vital Name Observation Time Observation Value Comments Source Systolic blood 2021-05-03 14:52:00 144 mm[Hg] Univer sity of [facility] Diastolic blood 2021-05-03 14:52:00 98 mm[Hg] Unive rsity of [facility] Heart rate 2021-05-03 14:52:00 75 /min Universi ty [facility] Body temperature 2021-05-03 14:51:00 36.22 [facility] Respiratory rate 2021-05-03 14:51:00 20 /min Univ [facility] Body height 2021-05-03 14:51:00 157.5 cm Universi ty [facility] Body weight 2021-05-03 14:51:00 116[facility]376 [facility] 2021-05-03 14:51:00 46.93 kg/m2 Universi [facility] Systolic blood 2021-05-03 14:52:00 144 mm[Hg] Univer sity of pressure [facility] Diastolic blood 2021-05-03 14:52:00 98 mm[Hg] Unive rsity of [facility] Heart rate 2021-05-03 14:52:00 75 /min Universi ty [facility] Body temperature 2021-05-03 14:51:00 36.22 Ann[facility]Marie [facility] Respiratory rate 2021-05-03 14:51:00 20 /min [facility] Body height 2021-05-03 14:51:00 157.5 cm Universi ty [facility] Body weight 2021-05-03 14:51:00 116.376 kg [facility] BMI 2021-05-03 14:51:00 46.93 kg/m2 [facility] Procedures Procedure Date / Time Performed Performing Clinician [facility] e LAB ONLY PAP 2021-05-03 16:08:00 Jacquie Noriega [facility] SMEAR-LIQUID [facility] h PAP SMEAR-LIQUID 2021-05-03 16:08:00 Jacquie Noriega [facility] Encounters Start End Encounter Admission Attending Care Care Encounter Source Date/Time Date/Time Type Type Clinicians Facility Department ID 2020-12-06 Emergency [facility] [id number] Univers 17:05:57 [facility] [place] [facility] 2021-12-03 2021-12-03 Outpatient PRASANNA MIMS [id number] Tha 12:38:34 12:38:34 1029 F Memo 2021-07-05 2021-07-05 Outpatient R JOSÉ HAQUE [facility] [id number] Univers 13:00:00 13:00:00 ity [facility] 2021-06-03 2021-06-03 Outpatient R SHABNAM [facility] [id number] Univers 13:30[facility] 2021-05-23 2021-05-23 Orders Doctor BERTHA [id number] Univers 00:00:00 00:00:00 Only Unassigned, CRISELDA [id number] ity of [place] [facility] [id number] Roby as [id number] [address] 2021-05-19 2021-05-19 Telephone Victor Manuelrhonda [facility] [id number] Univers 00:00:00 00:00:00 Jacquie Landaverde SNUFF PACKING MACHINE OPERATOR [id number] ity [facility] [id number] Roby as MATERNAL [id number] Med ical & CHILD [address] [place] [address] 2021-05-03 2021-05-03 Outpatient R ALLEN [facility] [id number] Univers 09:30:00 10:51:04 JACQUIE santiago o f [facility] 2021-05-03 2021-05-03 Office [facility] [id number] Univers 09:30:00 10:51:04 Visit Jacquie C SNUFF PACKING MACHINE OPERATOR [id number] ity of [facility] [id number] Roby as MATERNAL [id number] [facility] & CHILD [address] [place] [address] 2021-05-03 2021-05-03 Outpatient R AKINSIPE, [facility] [id number] Univers 09:30:00 10:51:04 JACQUIE santiago o [facility] 2021-05-03 2021-05-03 Outpatient R AKINSIPE, [facility] [id number] Univers 09:30:00 10:51:04 JACQUIE santiago o hiwot [facility] 2021-05-03 2021-05-03 Office [facility] [id number] [facility] 09:30:00 10:51:04 Visit Jacquie Landavrede SNUFF PACKING MACHINE OPERATOR [id number] ity of [facility] [id number] Roby as MATERNAL [id number] [address] 2021-05-03 2021-05-03 Orders Doctor BERTHA 1.2.840.114 [id number] Univers 00:00:00 00:00:00 Only Unassigned, CRISELDA [id number] ity of [place] [facility] [id number] [place] as [id number] [address] 2021-05-03 2021-05-03 Telephone [facility] 1.2.840.114 [id number] Univers 00:00:00 00:00:00 Jacquie C SNUFF PACKING MACHINE OPERATOR [id number] ity of [facility] [id number] Roby as MATERNAL [id number] [facility] & CHILD [address] [place] [address] 2021-05-03 2021-05-03 Telephone [facility] [id number] Univers 00:00:00 00:00:00 Jacquie C SNUFF PACKING MACHINE OPERATOR [id number] ity of [facility] [id number] Roby as MATERNAL [id number] [facility] ical & CHILD [address] [place] [address] 2020-09-24 2020-09-25 Emergency [facility] [id number] Univers 23:09:00 04:02:00 Geraldine Calix [id number] ity of [place] [id number] [facility] s [place] [id number] [place] 760454 [place] 2020-09-24 2020-09-25 Emergency [facility] [id number] 23:09:00 04:02:00 Geraldine Calix [id number] [place] [id number] [place] [id number] [facility] 2020-09-02 2020-09-02 Hospital Radiology [facility] [id number] Univers 15:30:00 23:59:00 Encounter Blue [id number] ity of [place] [id number] [facility] s [place] [id number] [facility] [address] [place] 2020-09-02 2020-09-02 Hospital Radiology [facility] [id number] 15:30:00 23:59:00 Encounter Blue [id number] [place] 4.2.7.2.686 [place] [id number] 2020-09-02 2020-09-02 Outpatient R RADIOLOGY [facility] [id number] Univers 00:00:00 00:00:00 ity of [facility] 2020-08-27 2020-08-27 Emergency [facility] [id number] Univers 21:50:00 23:10:00 Geraldine Calix [id number] ity of [place] [id number] [facility] s [place] [id number] [address] 2020-08-27 2020-08-27 Emergency [facility] [id number] 21:50:00 23:10:00 Geraldine Calix [id number] [place] [id number] [place] [id number] 2020-08-27 2020-08-27 Emergency X STEPHON [facility] ERT [id number] Univers 21:50:00 21:50:00 GERALDINE ity of [facility] 2020-08-27 2020-08-27 Transition Nikko Dinh [id number] 00:00:00 00:00:00 of Care Prisca Fox [id number] [place] [id number] [id number] 2020-08-27 2020-08-27 [facility] Nikko Dinh [id number] [facility] 00:00:00 00:00:00 of Care Priscaondina Mcdonoughy [id number] it [place] 4[place]2.7.2.686 [place] [id number] [facility] [address] Branch 2020-08-24 2020-08-26 [facility] [id number] 14:12:00 13:37:00 Encounter Estrella Rojelioelvi Calix [id number] [place] 4.2.7.2.686 [place] [id number] 2020-08-24 2020-08-26 [facility] [id number] Univers 14:12:00 13:37:00 Encounter EstrellaTomRojelioelvi Calix [id number] ity of [place] 4.2.7.2.686 [place] [id number] [facility] 081 Branch 2020-08-24 2020-08-24 Emergency X [facility] ERT [id number] Univers 13:52:00 13:52:00 ity of [facility] 2020-08-24 2020-08-24 Orders Doctor STONE 1.2.840.114 [id number] 00:00:00 00:00:00 Only Unassigned, CRISELDA [id number] [place] [facility] 4.2.7.2.686 [id number] 2020-08-24 2020-08-24 Orders Doctor BERTHA 1.2.840.114 [id number] 00:00:00 00:00:00 Only Unassigned, CRISELDA [id number] ity of [place] [facility] [id number] Roby as [id number] [facility] 009 Branch Results This patient has no known results.
--- NOTE | 2021-12-04 16:02 | RAD REPORT ---
EXAM DESCRIPTION: Lucita Olson (2 Views)12/04/2021 3:54 pm CLINICAL HISTORY: Cough COMPARISON: 2020 FINDINGS: The lungs appear clear of acute infiltrate. The heart is normal size IMPRESSION: No acute abnormalities displayed
--- NOTE | 2021-12-04 17:02 | EDPHYS ---
Physician Documentation [facility] Name: Omayra Parra Age: 31 yrs Sex: Female : 1990 Arrival Date: 12/04/2021 Time: 14:25 Bed 11 Private MD: ED Physician Anastacio Valera HPI: 12/04 17:49 This 31 yrs old Female presents to ER via Ambulatory with complaints of Chest kb Tightness, Shortness Of Breath, Cough. 17:49 The patient or guardian reports cough, that is intermittent, described as mild, flu kb symptoms, myalgias. Onset: The symptoms/episode began/occurred 3 day(s) ago. Severity of symptoms: At their worst the symptoms were moderate, in the emergency department the symptoms are unchanged. Modifying factors: The symptoms are alleviated by nothing, the symptoms are aggravated by nothing. Associated signs and symptoms: Pertinent positives: chest pain, with cough, rhinorrhea. The patient has not experienced similar symptoms in the past. The patient has not recently seen a physician. Historical: - Allergies: 15:05 Morphine; ll1 - PMHx: 15:05 Anxiety; cellulitis to the face; Migraine; PCOS; ll1 - PSHx: 15:05 section; Exploratory laparotomy; ll1 - Immunization history:: Client reports receiving the 2nd dose of the Covid vaccine. - Social history:: Smoking status: Patient reports the use of cigarette tobacco products, smokes one-half pack cigarettes per day. ROS: 17:48 Cardiovascular: Negative for chest pain, palpitations, and edema. kb 17:48 Constitutional: Positive for body aches, chills, fatigue, malaise. 17:48 ENT: Positive for sinus congestion. 17:48 Cardiovascular: Positive for chest pain, with cough. 17:48 Respiratory: Positive for cough. 17:48 All other systems are negative. Exam: 17:48 Constitutional: This is a well developed, well nourished patient who is awake, alert, kb and in no acute distress. Head/Face: Normocephalic, atraumatic. ENT: Moist Mucous membranes Cardiovascular: Regular rate and rhythm with a normal S1 and S2. No gallops, murmurs, or rubs. No pulse deficits. Respiratory: Respirations even and unlabored. No increased work of breathing. Talking in full sentences Abdomen/GI: Soft, non-tender. No distention Skin: Warm, dry with normal turgor. Normal color. MS/ Extremity: Pulses equal, no cyanosis. Neurovascular intact. Full, normal range of motion. Neuro: Awake and alert, GCS 15, oriented to person, place, time, and situation. Moves all extremities. Normal gait. Psych: Awake, alert, with orientation to person, place and time. Behavior, mood, and affect are within normal limits. 19:07 ECG was reviewed by the Attending Physician. kb Vital Signs: 15:03 BP 131 / 86; Pulse 72; Resp 18; Temp 97.2; Pulse Ox 100% ; Weight 113.4 kg; Height 5 ll1 ft. 3 in. (160.02 cm); Pain 9/10; 15:03 Body Mass Index 44.29 (113.40 kg, 160.02 cm) ll1 MDM: 14:45 Patient medically screened. kb 17:44 Data reviewed: vital signs, nurses notes. Data interpreted: Pulse oximetry: on room air kb is 100 %. Interpretation: normal. Counseling: I had a detailed discussion with the patient and/or guardian regarding: the historical points, exam findings, and any diagnostic results supporting the discharge/admit diagnosis, lab results, radiology results, the need for outpatient follow up, a family practitioner, to return to the emergency department if symptoms worsen or persist or if there are any questions or concerns that arise at home. 12/04 14:46 Order name: Flu; Complete Time: 15:23 kb 12/04 14:46 Order name: COVID-19 SARS RT PCR (Document "Date of Onset" if Symptomatic); Complete kb Time: 15:39 12/04 14:46 Order name: Chest Pa And Lat (2 Views) XRAY; Complete Time: 16:04 kb 12/04 14:46 Order name: EKG; Complete Time: 14:46 kb 12/04 14:46 Order name: EKG - Nurse/Tech; Complete Time: 15:14 kb EC:07 Rate is 72 beats/min. Rhythm is regular. QRS Creola is Normal. LA interval is normal at kb 122 msec. QRS interval is normal at 80 msec. QT interval is normal at 457 msec. Administered Medications: No medications were administered Disposition: 17:52 Co-signature as Attending Physician, Anastacio Valera MD I agree with the assessment and kdr plan of care. Disposition Summary: 12/04/21 17:01 Discharge Ordered Location: Home kb Condition: Stable kb Diagnosis - Acute upper respiratory infection, unspecified kb Followup: kb - With: Emergency Department - When: As needed - Reason: Worsening of condition Followup: kb - With: Private Physician - When: 2 - 3 days - Reason: Recheck today's complaints, Continuance of care, Re-evaluation by your physician Discharge Instructions: - Discharge Summary Sheet kb - Upper Respiratory Infection, Adult, [id number] kb - Viral Respiratory Infection, Xhpt-Uf-Liap kb Forms: - Medication Reconciliation Form kb - Thank You Letter kb - Antibiotic Education kb - Prescription Opioid Use kb - Work release form ll1 Signatures: Dispatcher [employer] EDMS Rama Engel, NIKOLAI-C SUPERVISOR [employer]-Anastacio Juares MD MD kdr Lewis, Lynsay, RN RN ll1
--- NOTE | 2021-12-04 17:02 | ER ---
Nurse's Notes [facility] Name: Omayra Parra Age: 31 yrs Sex: Female : 1990 Arrival Date: 12/04/2021 Time: 14:25 Bed 11 Private MD: Diagnosis: Acute upper respiratory infection, unspecified Presentation: 12/04 15:03 Chief complaint: Patient states: 3 days of cough, CP, body aches, and chills. No known ll1 fever. Coronavirus screen: Vaccine status: Patient reports being unvaccinated. Client denies travel out of the [place] in the last 14 days. congestion, cough unrelated to allergies, fatigue, headache, Client presents with at least one sign or symptom that may indicate coronavirus-19. Standard/surgical mask placed on the client. Ebola Screen: Patient denies travel to an Ebola-affected area in the 21 days before illness onset. Initial Sepsis Screen: Does the patient meet any 2 criteria? No. Patient's initial sepsis screen is negative. Does the patient have a suspected source of infection? Yes: Productive cough/pneumonia. Risk Assessment: Do you want to hurt yourself or someone else? Patient reports no desire to harm self or others. Onset of symptoms was December 02, 2021. 15:03 Method Of Arrival: Ambulatory ll1 15:03 Acuity: GAYE 3 ll1 Triage Assessment: 15:06 General: Appears uncomfortable, Behavior is cooperative, appropriate for age. Pain: ll1 Complains of pain in chest Quality of pain is described as. Cardiovascular: Reports chest pain, shortness of breath. Respiratory: Reports shortness of breath cough that is. Historical: - Allergies: 15:05 Morphine; ll1 - PMHx: 15:05 Anxiety; cellulitis to the face; Migraine; PCOS; ll1 - PSHx: 15:05 section; Exploratory laparotomy; ll1 - Immunization history:: Client reports receiving the 2nd dose of the Covid vaccine. - Social history:: Smoking status: Patient reports the use of cigarette tobacco products, smokes one-half pack cigarettes per day. Screenin:08 Abuse screen: Denies threats or abuse. Denies injuries from another. Nutritional hb screening: No deficits noted. Tuberculosis screening: No symptoms or risk factors identified. Fall Risk None identified. Assessment: 17:08 Reassessment: Patient appears in no apparent distress at this time. Patient and/or hb family updated on plan of care and expected duration. Pain level reassessed. Patient is alert, oriented x 3, equal unlabored respirations, skin warm/dry/pink. Vital Signs: 15:03 BP 131 / 86; Pulse 72; Resp 18; Temp 97.2; Pulse Ox 100% ; Weight 113.4 kg; Height 5 ll1 ft. 3 in. (160.02 cm); Pain 9/10; 15:03 Body Mass Index 44.29 (113.40 kg, 160.02 cm) ll1 ED Course: 14:25 Patient arrived in ED. as 14:32 Rama Engel FNP-C [facility]. kb 14:32 Anastacio Valera MD is Attending Physician. kb 15:05 Triage completed. ll1 15:06 Arm band placed on. ll1 15:14 COVID-19 SARS RT PCR (Document "Date of Onset" if Symptomatic) Sent. ll1 15:14 Flu Sent. ll1 15:56 Chest Pa And Lat (2 Views) XRAY In Process Unspecified. EDMS 17:08 Patient has correct armband on for positive identification. hb 17:08 No provider procedures requiring assistance completed. Patient did not have IV access hb during this emergency room visit. Administered Medications: No medications were administered Medication: 17:08 VIS not applicable for this client. hb Outcome: 17:01 Discharge ordered by MD. kb 17:08 Discharged to home ambulatory. hb 17:08 Condition: stable 17:08 Discharge instructions given to patient, Instructed on discharge instructions, follow up and referral plans. medication usage, Demonstrated understanding of instructions, follow-up care, medications. 17:09 Patient left the ED. hb Signatures: Dispatcher [employer] EDMO Rama Engel FNP-C FNP-Ckb Martinez, Amelia as Helen Mccain RN RN Meera Esteban RN RN ll1 Corrections: (The following items were deleted from the chart) 15:06 15:03 Pulse 72bpm; Resp 18bpm; Pulse Ox 100%; Temp 97.2F; 113.4 kg; Height 5 ft. 3 in.; ll1 BMI: 44.2; Pain 9/10; ll1
--- NOTE | 2021-12-05 15:58 | EKG ---
Test Date: 2021-12-04 Test Time: 15:11:58 Edge Worker: YISSEL MEASUREMENT RESULTS: Intervals: Rate: 77 ID: [id number] QRSD: 84 QT: 390 QTc: 441 Dalton: P: 21 ID: [id number] QRS: 32 T: -22 INTERPRETIVE STATEMENTS: Normal sinus rhythm T wave abnormality, consider inferior ischemia Abnormal ECG Compared to ECG 08/28/2020 14:38:06 Possible ischemia now present Ventricular premature complex(es) no longer present Left ventricular hypertrophy no longer present T-wave abnormality still present Electronically Signed On 12-05-21 15:56:31 CDT by Cheng Pierre
--- NOTE | 2021-12-05 15:58 | EKG ---
Test Date: 2021-12-04 Test Time: 15:12:27 Lawn [employer] Professional: YISSEL MEASUREMENT RESULTS: Intervals: Rate: 72 AL: 122 QRSD: 80 QT: 418 QTc: 457 Bicknell: P: 23 AL: 122 QRS: 31 T: -8 INTERPRETIVE STATEMENTS: Normal sinus rhythm Nonspecific T wave abnormality Abnormal ECG Compared to ECG 12/04/2021 15:11:58 Possible ischemia no longer present T-wave abnormality still present Electronically Signed On 12-05-21 15:56:28 CDT by Cheng Pierre
== END 2021-12-04 17:09 | disposition home or self-care (01) ==
LOC: ER 14:22
DX: J06.9 Acute upper respiratory infection, unspecified (principal); F17.210 Nicotine dependence, cigarettes, uncomplicated; Z88.5 Allergy status to narcotic agent
CPT/HCPCS: 71046; 87804; 93005; 99283; U0003

== ENCOUNTER 2022-07-09 10:11 | Emergency (ER) | payer SELFPAY ==
--- OUTSIDE RECORDS SUMMARY | 2022-07-09 10:14 | XMS REPORT | Continuity of Care Document ---
:1990 Author Organization [facility] t Address [address] [facility] [address] [place] [address] Care Team Providers Name Role Phone Rosa Rodriguez Primary Care Physician JOSÉ HAQUE Attending Clinician Unavailable Doctor Unassigned, [place] Attending Clinician Unavailable Jacquie Pederson Attending Clinician [phone] JACQUIE NORIEGA Attending Clinician Unavailable Geraldine Galvan MD Attending Clinician Radiology Attending Clinician Unavailable RADIOLOGY Attending Clinician Unavailable GERALDINE GALVAN Attending Clinician Unavailable Prisca Dinh RN Attending Clinician Chavo Jose MD Attending Clinician Rojelio De La Rosa MD Attending Clinician Rojelio De La Rosa MD Admitting Clinician Payers Payer Name Policy Type Policy Number Effective Date Expiration Date Myron bryant [id number] 2021 00:00:00 Problems Condition Condition Condition Status [...] Univers menses menses 9-16 ity of 00:00: Medical Branch History of History of Disease Active U nivers anxiety anxiety 9-16 ity of 00:00: [place] [facility] Tobacco Tobacco Disease Active Univers use use 9-16 ity of disorder disorder 00:00: Medical Branch General General Disease Active Overview: Univ ers counseling counseling 11-01 Formattin ity of and advice and advice 00:00: g of this [place] for note Medical contracept contracept might be Branch jamison jamison different management management from the original. 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 Generalize Generalize Disease Active U nivers d anxiety d anxiety 9- ity of disorder disorder 00:00: [place] [facility] Morbid Morbid Disease Active Univers obesity obesity 927 ity of 00:00: Medical Branch Allergies, Adverse Reactions, Alerts Allergy Allergy Status Severity Reaction(s) Onset Inactive Treating Comm ents Source Name Type Date Date Clinician Morphine Propensi Active Nausea Univer s ty to and/or 08-24 ity of adverse Vomiting 00:00: [place] reaction 00 [facility] Social History Social Habit Start Date Stop Date Quantity Comments Source Exposure to 2021-04-03 2021-05-03 Not sure [facility] SARS-CoV-2 (event) 00:00:00 09:51:00 [facility] Alcohol intake 2021-05-03 2021-05-03 .24 /d University of 00:00:00 00:00:00 [facility] Cigarettes smoked 2020-08-24 2020-08-24 Univers ity of current (pack per 00:00:00 00:00:00 ) - Reported Branch Cigarette 2020-08-24 2020-08-24 University of pack-years 00:00:00 00:00:00 [facility] Tobacco use and 2020-08-24 2020-08-24 Never used Universit y of exposure 00:00:00 00:00:00 [facility] Education 2020-08-24 2020-08-24 21 University of 00:00:00 00:00:00 [facility] Tobacco Comment 2020-08-24 2020-08-24 quit last week Unive rsity of 00:00:00 00:00:00 [facility] History of tobacco 2012-02-02 2012-02-02 Cigarette Smoker University of use 00:00:00 00:00:00 [facility] Sex Assigned At [birth year] Universit y of 00:00:00 00:00:00 [facility] Smoking Status Start Date Stop Date Source Current every day smoker 2020-08-24 00:00:00 Uni versity of [facility] Medications Ordered Filled Start Stop Current Ordering Indication Dosage Frequency Signature Comments Components Source Medication Medication Date Date Medication? Clinician (SIG) Name Name dicyclomine 2021- No [id number] 20mg Take 1 Univers 20 mg 09-25 tablet by ity of tablet 00:00: 00:00 mouth [place] 00 :00 every 6 Medical (six) Branch hours as needed for Abdominal pain. ondansetron 2021- No [id number] 4mg Take 1 Univers (ZOFRAN) 4 09-25 tablet by ity of mg tablet 00:00: 00:00 mouth [place] 00 :00 every 8 Medical (eight) Branch hours as needed for Nausea and Vomiting (N/V). omeprazole 2021- No [id number] 20mg Take 1 Univers 20 mg 08-27 [...] Indication s: acute pain sulfamethox 2021- No [id number] 1{tbl} Take 1 Univers azole-trime 08-26 tablet by it y of 00:00: 00:00 mouth 2 [place] 800-160 mg 00 :00 (two) Medical per tablet times Branch daily. Immunizations Ordered Immunization Filled Immunization Date Status Commen ts Source Name Name TDAP 2012-09-25 Completed University of 00:00:00 [facility] Meningococcal 2011-01-25 Completed [facility] Vaccine 00:00:00 [facility] Rubella 2010-04-01 Completed University 00:00:00 [facility] Td 2006-02-05 Completed University 00:00:00 [facility] Varicella 1996-02-06 Completed [facility] (varivax)(chicken 00:00:00 [facility] edical pox) Branch Vital Signs Vital Name Observation Time Observation Value Comments Source Systolic blood 2021-05-03 14:52:00 144 mm[Hg] Univer sity of pressure [facility] Diastolic blood 2021-05-03 14:52:00 98 mm[Hg] Unive rsity of [facility] Heart rate 2021-05-03 14:52:00 75 /min Universi ty [facility] Body temperature 2021-05-03 14:51:00 36.22 Ann-Marie [facility] Respiratory rate 2021-05-03 14:51:00 20 /min [facility] Body height 2021-05-03 14:51:00 157.5 cm [facility] Body weight 2021-05-03 14:51:00 116.376 kg [facility] BMI 2021-05-03 14:51:00 46.93 kg/m2 [facility] Systolic blood 2021-05-03 14:52:00 144 mm[Hg] Univer sity of pressure [facility] Diastolic blood 2021-05-03 14:52:00 98 mm[Hg] Unive rsity of pressure [facility] Heart rate 2021-05-03 14:52:00 75 /min Universi ty [facility] Body temperature 2021-05-03 14:51:00 36.22 Ann-Marie [facility] Respiratory rate 2021-05-03 14:51:00 20 /min [facility] Body height 2021-05-03 14:51:00 157.5 cm [facility] Body weight 2021-05-03 14:51:00 116.376 kg [facility] BMI 2021-05-03 14:51:00 46.93 kg/m2 [facility] Procedures Procedure Date / Time Performed Performing Clinician [facility] e LAB ONLY PAP 2021-05-03 16:08:00 Jacquie Noriega [facility] SMEAR-LIQUID BASED [facility] h PAP SMEAR-LIQUID 2021-05-03 16:08:00 [facility] Encounters Start End Encounter Admission Attending Care Care Encounter Source Date/Time Date/Time Type Type Clinicians Facility Department ID 2020-12-06 Emergency [facility] [id number] Univers 17:05:57 [facility] 2021-12-03 2021-12-03 Outpatient SFA PRASANNA [id number] Tha 12:38:34 12:38:34 [id number] Memo 2021-07-05 2021-07-05 Outpatient R JOSÉ HAQUE [facility] [id number] Univers 13:00:00 13:00:00 ity of [facility] 2021-06-03 2021-06-03 Outpatient R SHABNAM [facility] [id number] Univers 13:30:00 [facility] 2021-05-23 2021-05-23 Orders Doctor BERTHA [id number] Univers 00:00:00 00:00:00 Only Unassigned, CRISELDA [id number] ity of [place] [facility] [id number] Roby as [phone] [address] 2021-05-19 2021-05-19 Telephone Victor Manuelrhonda [facility] [id number] Univers 00:00:00 00:00:00 Jacquie Landaverde IT AUDITOR [id number] ity of [facility] [id number] Roby as MATERNAL [id number] Med ical & CHILD [address] [place] [address] 2021-05-03 2021-05-03 Outpatient R LEANN [facility] [id number] Univers 09:30:00 10:51:04 JACQUIE pamela o [facility] 2021-05-03 2021-05-03 Outpatient R LEANN [facility] [id number] Univers 09:30:00 10:51:04 JACQUIE ewatessie o [facility] 2021-05-03 2021-05-03 [facility] [id number] [facility] 09:30:00 10:51:04 Visit Jacquie C IT AUDITOR [id number] ity of [facility] [id number] Roby as MATERNAL [phone] [facility] ical & CHILD [address] [place] [address] 2021-05-03 2021-05-03 Outpatient R LEANN [facility] [id number] Univers 09:30:00 10:51:04 JACQUIE urbina [facility] 2021-05-03 2021-05-03 Office Leann [facility] [id number] [facility] 09:30:00 10:51:04 Visit Jacquie C IT AUDITOR [id number] ity of [facility] [id number] Roby as MATERNAL [phone] [facility] & CHILD [address] [place] [address] 2021-05-03 2021-05-03 Orders Doctor BERTHA [id number] Univers 00:00:00 00:00:00 Only Unassigned, CRISELDA [id number] ity of [place] [facility] [id number] Roby as [phone] [address] 2021-05-03 2021-05-03 [facility] [id number] Univers 00:00:00 00:00:00 Jacquie C IT AUDITOR [id number] ity of [facility] [id number] Roby as MATERNAL [phone] [facility] ical & CHILD [address] [place] [address] 2021-05-03 2021-05-03 Telephone Leann [facility] [id number] Univers 00:00:00 00:00:00 Jacquie Landaverde IT AUDITOR [id number] ity of [facility] [id number] Roby as MATERNAL [phone] [facility] ical & CHILD [address] [place] [address] 2020-09-24 2020-09-25 [facility] [id number] Univers 23:09:00 04:02:00 Geraldine Calix [id number] ity of [place] [id number] [facility] [id number] [address] 2020-09-24 2020-09-25 [facility] [id number] 23:09:00 04:02:00 Geraldine Calix [id number] [place] [id number] [place] [id number] [id number] 2020-09-02 2020-09-02 Hospital Radiology [facility] [id number] Univers 15:30:00 23:59:00 Encounter [place] [id number] ity of [place] [id number] [facility] [id number] [facility] [address] [place] 2020-09-02 2020-09-02 Hospital Radiology [facility] [id number] 15:30:00 23:59:00 Encounter [place] [id number] [place] [id number] [place] [id number] [id number] 2020-09-02 2020-09-02 Outpatient R RADIOLOGY [facility] [id number] Univers 00:00:00 00:00:00 ity of [facility] 2020-08-27 2020-08-27 [facility] [id number] Univers 21:50:00 23:10:00 Geraldine Ganton [id number] ity of [place] [id number] [facility] [id number] [address] 2020-08-27 2020-08-27 [place] [id number] 21:50:00 23:10:00 [place]ine [place] [id number] [place] [id number] [place] [id number] [id number] 2020-08-27 2020-08-27 Emergency X [place]FINAMCL[place]EN [place] ERT [id number] Univers 21:50:00 21:50:00 GERALDINE ity of [facility] 2020-08-27 2020-08-27 Transition Arlen Dinhlinda [id number] 00:00:00 00:00:00 of Care Prisca Mcdonoughy [id number] [place] [id number] [id number] 2020-08-27 2020-08-27 Transition Nikko Dinh [id number] Univers 00:00:00 00:00:00 of Care Prisca Ruddy [id number] it y of [place] [id number] [facility] [phone] [facility] 403 Branch 2020-08-24 2020-08-26 [facility] [id number] 14:12:00 13:37:00 Encounter Mark De La Rosadunia Calix [id number] [place] [id number] [place] [id number] 2020-08-24 2020-08-26 [facility] [id number] [facility] 14:12:00 13:37:00 Encounter EstrellaTomRojelioelvi Calix [id number] ity of [place] [id number] [place] [phone] [facility] 081 Branch 2020-08-24 2020-08-24 Emergency X [facility] ERT [id number] Univers 13:52:00 13:52:00 ity of [facility] 2020-08-24 2020-08-24 Orders Doctor STONE [id number] 00:00:00 00:00:00 Only Unassigned, CRISELDA [id number] [place] [facility] [id number] 2020-08-24 2020-08-24 Orders Doctor BERTHA [id number] Univers 00:00:00 00:00:00 Only Unassigned, CRISELDA [id number] ity of [place] [facility] [id number] Roby as [phone] [facility] 009 Branch Results This patient has no known results.
[2022-07-09 10:47] LABS: Absolute Lymphocytes (CBC) 1.8 K/uL (0.7-4.9); Hematocrit 35.1 % (36.0-45.0); Lymphocytes % 24.3 % (15.3-44.8); MCV 81.1 fL (80-100); MPV 6.4 fL (7.6-11.3); RBC Red Blood Cell Count 4.32 M/uL (3.86-4.86)
[2022-07-09 11:03] LABS: Potassium 3.4 mEq/L (3.5-5.1); Troponin High Sensitivity 3.1 pg/mL (<58.9)
--- NOTE | 2022-07-09 11:19 | RAD REPORT ---
EXAM DESCRIPTION: CT - Head Brain Wo Cont - 07/09/2022 11:02 am CLINICAL HISTORY: DIZZINESS COMPARISON: Head Brain Wo Cont dated 06/20/2020; Head Brain Wo Cont dated 07/12/2018 TECHNIQUE: Noncontrast head CT images ad were obtained without IV contrast. Multiplanar reformats we re generated and reviewed. All CT scans are performed using dose optimization technique as appropriate and may include automated exposure control or mA/KV adjustment according to patient size. FINDINGS: No intracranial hemorrhage, mass, or edema. Midline structures are unremarkable. Normal ventricular caliber for age. Fontanez-white matter differentiation is preserved, without evidence of acute infarct. No abnormal extra- axial fluid collections. Mastoid air cells and visualized portions of the paranasal sinuses are clear. No acute bony findings. IMPRESSION: No evidence of an acute intracranial process.
--- NOTE | 2022-07-09 11:31 | RAD REPORT ---
EXAM DESCRIPTION: RADChest Single View07/09/2022 11:11 am CLINICAL HISTORY: MALAISE COMPARISON: Chest Pa And Lat (2 Views) dated 12/04/2021; Chest Single View dated 08/28/2020; Chest Pa And Lat (2 Views) dated 04/17/2019; Chest Pa And Lat (2 Views) dated 12/09/2018 TECHNIQUE: Portable AP view of the chest. FINDINGS: The lungs are clear. Symmetric mildly increased density at the bases is probably artifactu al related to technique and superimposition of soft tissue. No pneumothorax or effusion. The cardiom ediastinal contours are unremarkable. IMPRESSION: No acute cardiopulmonary process.
--- NOTE | 2022-07-09 11:38 | ER ---
Nurse's Notes [facility] Name: Omayra Parra Age: 31 yrs Sex: Female : 1990 Arrival Date: 07/09/2022 Time: 10:11 Bed 8 Private MD: Diagnosis: Dizziness and giddiness;Elevated blood-pressure reading, without diagnosis of hypertension Presentation: 07/09 10:19 Chief complaint: Patient states: Saw PCP on July 04 for high BP and was told to monitor vg1 BP, today BP was 175/101 at work, has been feeling dizzy, "fuzzy", with blurred vision. Denies h/a at this time but states palpitations. Coronavirus screen: Vaccine status: Patient reports receiving the 1st dose of the Covid vaccine. Client denies travel out of the [place] in the last 14 days. Ebola Screen: Patient negative for fever greater than or equal to 101.5 degrees Fahrenheit, and additional compatible Ebola Virus Disease symptoms Patient denies exposure to infectious person. Patient denies travel to an Ebola-affected area in the 21 days before illness onset. Initial Sepsis Screen: Does the patient meet any 2 criteria? No. Patient's initial sepsis screen is negative. Does the patient have a suspected source of infection? No. Patient's initial sepsis screen is negative. Risk Assessment: Do you want to hurt yourself or someone else? Patient reports no desire to harm self or others. Onset of symptoms was July 04, 2022. 10:19 Method Of Arrival: Ambulatory vg1 10:19 Acuity: GAYE 3 vg1 Triage Assessment: 10:21 General: Appears uncomfortable, Behavior is cooperative. Pain: Denies pain. Neuro: vg1 Level of Consciousness is awake, alert, obeys commands, Oriented to person, place, time, situation, Reports blurred vision dizziness. Cardiovascular: Patient's skin is warm and dry. Respiratory: Airway is patent Respiratory effort is even, labored. 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 - Social history:: Smoking status: Reported history of juuling and/or vaping. Screenin:[address] [facility] ED Fall Risk Assessment (Adult) History of falling in the last 3 months, ld1 including since admission No falls in past 3 months (0 pts). Abuse screen: Denies threats or abuse. Denies injuries from another. Nutritional screening: No deficits noted. Tuberculosis screening: No symptoms or risk factors identified. Assessment: 10:40 General: Appears in no apparent distress. comfortable, Behavior is calm, cooperative, ld1 appropriate for age. Pain: Denies pain. Neuro: Level of Consciousness is awake, alert, obeys commands, Oriented to person, place, time, situation, Reports dizziness. Cardiovascular: Capillary refill < 3 seconds Patient's skin is warm and dry. Rhythm is sinus rhythm. Respiratory: Airway is patent Respiratory effort is even, unlabored. GI: Abdomen is round non-distended. : No signs and/or symptoms were reported regarding the genitourinary system. EENT: No signs and/or symptoms were reported regarding the EENT system. Derm: No signs and/or symptoms reported regarding the dermatologic system. Musculoskeletal: No signs and/or symptoms reported regarding the musculoskeletal system. 12:00 Reassessment: No changes from previously documented assessment. Patient and/or family ll1 updated on plan of care and expected duration. Pain level reassessed. Patient is alert, oriented x 3, equal unlabored respirations, skin warm/dry/pink. Vital Signs: 10:19 BP 149 / 94; Pulse 89; Resp 16; Temp 98.1(TE); Pulse Ox 100% on R/A; Weight 117.93 kg; vg1 Height 5 ft. 2 in. ; 10:40 BP 122 / 72; Pulse 80; Resp 18; Pulse Ox 99% on R/A; Pain 0/10; ld1 12:00 BP 132 / 68; Pulse 73; Resp 16; ll1 10:19 Body Mass Index 47.55 (117.93 kg, 157.48 cm) vg1 10:40 Pain Scale: Adult ld1 NIH Stroke Scale Scores: 10:20 NIHSS Score: 0 [facility] ED Course: 10:13 Patient arrived in ED. rg4 10:13 Yashira Marie FNP [facility] 7 10:13 Reza Breen MD is Attending Physician. jh7 10:21 Triage completed. vg1 10:21 Arm band placed on. vg1 10:31 Jodi Núñez, SUSAN is Primary Nurse. ld1 10:40 Patient has correct armband on for positive identification. Placed in gown. Bed in low ld1 position. Call light in reach. Side rails up X2. didactic program in dietetics director on. Pulse ox on. NIBP on. Door closed. Noise minimized. Warm blanket given. 10:40 No provider procedures requiring assistance completed. Inserted saline lock: 20 gauge ld1 in right antecubital area, using aseptic technique. Blood collected. 11:03 CT Head Brain wo Cont In Process Unspecified. EDMS 11:13 XRAY Chest (1 view) In Process Unspecified. EDMS 12:15 IV discontinued, intact, bleeding controlled, No redness/swelling at site. Pressure ll1 dressing applied. Administered Medications: No medications were administered Medication: 10:40 VIS not applicable for this client. ld1 Outcome: 11:37 Discharge ordered by . 7 12:15 Discharged to home ambulatory. ll1 12:15 Condition: stable 12:15 Discharge instructions given to patient, Instructed on discharge instructions, follow up and referral plans. Demonstrated understanding of instructions, follow-up care. 12:16 Patient left the ED. ll1 NIH Stroke Scale - NIH Stroke Score Date: 07/09/2022 Time: 10:20 Total Score = 0 10. Dysarthria (speech clarity - read or repeat words) - 0(Normal) 11. Extinction and Inattention (visual/tactile/auditory/spatial/personal) - 0(No abnormality) 1a. Level of Consciousness (LOC) - 0(Alert) 1b. Level of Consciousness (LOC) (Month \\T\\ Age) - 0(Both) 1c. LOC Commands (Open \\T\\ Closes Eyes/[place]) - 0(Both) 2. Best Gaze (Lateral Gaze Paresis) - 0(Normal) 3. Visual Field Loss - 0(No visual loss) 4. Facial Palsy - 0(Normal) 5a. Left Arm: Motor (10-second hold) - 0(No drift) 5b. Right Arm: Motor (10-second hold) - 0(No drift) 6a. Left Leg: Motor (5-second hold - always test supine) - 0(No drift) 6b. Right Leg: Motor (5-second hold - always test supine) - 0(No drift) 7. Limb Ataxia (finger/nose \\T\\ heel/valdivia - test with eyes open) - 0(Absent) 8. Sensory Loss (pinprick arms/legs/face) - 0(Normal) 9. Best Language: Aphasia (description/naming/reading) - 0(No aphasia) Initials: 7 Signatures: Dispatcher [employer] Oralia Terry rg4 Carissa Headley RN RN vg1 Meera Mays RN RN 1 Jodi Núñez RN RN ld1 Yashira Marie, CHIEF ENVIRONMENTAL COMMITMENT OFFICER CHIEF ENVIRONMENTAL COMMITMENT OFFICER 7 Corrections: (The following items were deleted from the chart) 10:22 10:21 Allergies: Hema; damir1 vg1
--- NOTE | 2022-07-09 11:38 | EDPHYS ---
Physician Documentation [facility] Name: Omayra Parra Age: 31 yrs Sex: Female : 1990 Arrival Date: 07/09/2022 Time: 10:11 Bed 8 Private MD: ED Physician Reza Breen HPI: 07/09 10:20 This 31 yrs old Female presents to ER via Ambulatory with complaints of High Blood jh7 Pressure, Dizziness. 10:20 The patient has elevated blood pressure and discovered this work. Onset: The jh7 symptoms/episode began/occurred acutely. Associated signs and symptoms: Pertinent positives: dizziness, blurred vision, fatigue, Pertinent negatives: chest pain, headache, nausea, vomiting. Severity of symptoms: At its worst the blood pressure was 175/101. 31-year-old female with a history of migraines and hypertension presents for dizziness, lightheadedness, and intermittent blurred vision. She states that her PCP was considering putting her on medications for high blood pressure, but wanted to know if migraines were the cause of her elevated blood pressure. Denies any headache today but states that she experienced palpitations and that her blood pressure was 175/101 at work. Denies being on any blood pressure medication. Denies syncope, weakness on one side of the body, facial asymmetry, or speech changes. PCP is Dr. Valdes.. 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 - Social history:: Smoking status: Reported history of juuling and/or vaping. ROS: 10:20 Constitutional: Negative for fever, chills, and weight loss, Eyes: Negative for injury, jh7 pain, redness, and discharge, ENT: Negative for injury, pain, and discharge, Neck: Negative for injury, pain, and swelling, Respiratory: Negative for shortness of breath, cough, wheezing, and pleuritic chest pain, Back: Negative for injury and pain, MS/Extremity: Negative for injury and deformity, Skin: Negative for injury, rash, and discoloration. 10:20 Cardiovascular: Positive for palpitations, Negative for chest pain. 10:20 Neuro: Positive for dizziness, visual changes, Negative for altered mental status, headache, loss of consciousness, numbness, seizure activity, speech changes, syncope, tingling. 10:20 All other systems are negative. Exam: 10:20 Constitutional: This is a well developed, well nourished patient who is awake, alert, jh7 and in no acute distress. Head/Face: Normocephalic, atraumatic. Eyes: Pupils equal round and reactive to light, extra-ocular motions intact. Lids and lashes normal. Conjunctiva and sclera are non-icteric and not injected. Cornea within normal limits. Periorbital areas with no swelling, redness, or edema. Neck: Trachea midline, no thyromegaly or masses palpated, and no cervical lymphadenopathy. Supple, full range of motion without nuchal rigidity, or vertebral point tenderness. No Meningismus. Cardiovascular: Regular rate and rhythm with a normal S1 and S2. No gallops, murmurs, or rubs. Normal PMI, no JVD. No pulse deficits. Respiratory: Lungs have equal breath sounds bilaterally, clear to auscultation and percussion. No rales, rhonchi or wheezes noted. No increased work of breathing, no retractions or nasal flaring. Back: No spinal tenderness. No costovertebral tenderness. Full range of motion. Skin: Warm, dry with normal turgor. Normal color with no rashes, no lesions, and no evidence of cellulitis. MS/ Extremity: Pulses equal, no cyanosis. Neurovascular intact. Full, normal range of motion. Neuro: Awake and alert, GCS 15, oriented to person, place, time, and situation. Cranial nerves II-XII grossly intact. Motor strength 5/5 in all extremities. Sensory grossly intact. Cerebellar exam normal. Normal gait. Vital Signs: 10:19 BP 149 / 94; Pulse 89; Resp 16; Temp 98.1(TE); Pulse Ox 100% on R/A; Weight 117.93 kg; vg1 Height 5 ft. 2 in. ; 10:40 BP 122 / 72; Pulse 80; Resp 18; Pulse Ox 99% on R/A; Pain 0/10; ld1 12:00 BP 132 / 68; Pulse 73; Resp 16; ll1 10:19 Body Mass Index 47.55 (117.93 kg, 157.48 cm) vg1 10:40 Pain Scale: Adult ld1 NIH Stroke Scale Scores: 10:20 NIHSS Score: 0 [facility] MDM: 10:13 Patient medically screened. [facility] 11:38 Differential diagnosis: hypertensive crisis, Malignant HTN, CVA, intracerebral [facility] hemorrhage, Acute OR, SVT. Data interpreted: Pulse oximetry: is 99 %. Interpretation: normal. Data reviewed: vital signs, nurses notes, lab test result(s), EKG, radiologic studies, CT scan, plain films. Independent interpretation of the following test(s) in the Emergency Department EKG: See my EKG interpretation above. Counseling: I had a detailed discussion with the patient and/or guardian regarding: the historical points, exam findings, and any diagnostic results supporting the discharge/admit diagnosis, to return to the emergency department if symptoms worsen or persist or if there are any questions or concerns that arise at home. Response to treatment: the patient's symptoms have mildly improved after treatment. 07/09 10:23 Order name: Basic Metabolic Panel; Complete Time: 11:05 [facility] 07/09 10:23 Order name: CBC with Diff; Complete Time: 11:05 [facility] 07/09 10:23 Order name: Troponin HS; Complete Time: 11:05 [facility] 07/09 10:23 Order name: XRAY Chest (1 view); Complete Time: 11:35 [facility] 07/09 10:23 Order name: CT Head Brain wo Cont; Complete Time: 11:35 [facility] 07/09 10:23 Order name: EKG; Complete Time: 10:24 [facility] 07/09 10:23 Order name: Cardiac monitoring; Complete Time: 10:39 [facility] 07/09 10:23 Order name: EKG - Nurse/Tech; Complete Time: 10:36 [facility] 07/09 10:23 Order name: IV Saline Lock; Complete Time: 10:39 [facility] 07/09 10:23 Order name: Labs collected and sent; Complete Time: 10:39 [facility] 07/09 10:23 Order name: O2 Per Protocol; Complete Time: 10:31 [facility] 07/09 10:23 Order name: O2 Sat Monitoring; Complete Time: 10:31 [facility] EC:30 Rate is 87 beats/min. Rhythm is regular. QRS is negative in leads V1, V2. MT interval [facility] is normal at 120 msec. QRS interval is normal at 82 msec. QT interval is normal at 376 msec. No Q waves. T waves are Normal. No ST changes noted. Clinical impression: Normal Sinus Rhythm. Administered Medications: No medications were administered Disposition Summary: 07/09/22 11:37 Discharge Ordered Location: Home [facility] Problem: new [facility] Symptoms: have improved [facility] Condition: Stable [facility] Diagnosis - Dizziness and giddiness [facility] - Elevated blood-pressure reading, without diagnosis of hypertension [facility] Followup: [facility] - With: Private Physician - When: 2 - 3 days - Reason: Recheck today's complaints Discharge Instructions: - Discharge Summary Sheet [facility] - Dizziness [facility] - Hypertension, Adult [facility] - How to Take Your Blood Pressure, [id number] [facility] Forms: - Work release form ll1 - Medication Reconciliation Form [facility] - Thank You Letter [facility] NIH Stroke Scale - NIH Stroke Score Date: 07/09/2022 Time: 10:20 Total Score = 0 10. Dysarthria (speech clarity - read or repeat words) - 0(Normal) 11. Extinction and Inattention (visual/tactile/auditory/spatial/personal) - 0(No abnormality) 1a. Level of Consciousness (LOC) - 0(Alert) 1b. Level of Consciousness (LOC) (Month \T\ Age) - 0(Both) 1c. LOC Commands (Open \T\ Closes Eyes/Cage Unloader) - 0(Both) 2. Best Gaze (Lateral Gaze Paresis) - 0(Normal) 3. Visual Field Loss - 0(No visual loss) 4. Facial Palsy - 0(Normal) 5a. Left Arm: Motor (10-second hold) - 0(No drift) 5b. Right Arm: Motor (10-second hold) - 0(No drift) 6a. Left Leg: Motor (5-second hold - always test supine) - 0(No drift) 6b. Right Leg: Motor (5-second hold - always test supine) - 0(No drift) 7. Limb Ataxia (finger/nose \T\ heel/valdivia - test with eyes open) - 0(Absent) 8. Sensory Loss (pinprick arms/legs/face) - 0(Normal) 9. Best Language: Aphasia (description/naming/reading) - 0(No aphasia) Initials: jh7 Signatures: Dispatcher [employer] EDMS Kayode, Carissa, RN RN vg1 Yashira Marie, MOTION PICTURE CAMERA LENS TECHNICIAN MOTION PICTURE CAMERA LENS TECHNICIAN jh7 Corrections: (The following items were deleted from the chart) 10:22 10:21 Allergies: Hema; vg1 vg1
[2022-07-09 12:57] VITALS: TEMP 98.1; O2SAT 100
[2022-07-09 13:03] VITALS: BP 132/68
--- NOTE | 2022-07-10 10:16 | EKG ---
Test Date: 2022-07-09 Test Time: 10:30:02 Unit Technician: ELSY MEASUREMENT RESULTS: Intervals: Rate: 87 UT: 120 QRSD: 82 QT: 376 QTc: 452 [facility] [place]: P: 34 UT: 120 QRS: 45 T: -21 INTERPRETIVE STATEMENTS: Normal sinus rhythm Nonspecific T wave abnormality Abnormal ECG Compared to ECG 12/04/2021 15:12:27 No significant changes Electronically Signed On 07-10-22 10:13:51 CDT by Tapan Grover
== END 2022-07-09 12:16 | disposition home or self-care (01) ==
LOC: ER 10:11
DX: R03.0 Elevated blood-pressure reading, without diagnosis of hypertension (principal); F41.9 Anxiety disorder, unspecified; Z88.5 Allergy status to narcotic agent
CPT/HCPCS: 36415; 70450; 71045; 80048; 84484; 85025; 93005; 99284

== ENCOUNTER 2022-11-20 20:48 | Emergency (ER) | payer SELFPAY ==
--- OUTSIDE RECORDS SUMMARY | 2022-11-20 20:51 | XMS REPORT | Continuity of Care Document ---
:1990 Author Organization [facility] t Address [address] [facility] [address] [place] [address] Care Team Providers Name Role Phone CARMELINA HANLEY Primary Care Physician Unavailable JACQUIE NORIEGA Attending Clinician Unavailable JOSÉ HAQUE Attending Clinician Unavailable Doctor Unassigned, [place] Attending Clinician Unavailable Jacquie Pederson Attending Clinician [phone] Geraldine Galvan MD Attending Clinician Radiology Attending Clinician Unavailable RADIOLOGY Attending Clinician Unavailable GERALDINE GALVAN Attending Clinician Unavailable Prisca Dinh RN Attending Clinician Chavo Jose MD Attending Clinician Rojelio De La Rosa MD Attending Clinician Rojelio De La Rosa MD Admitting Clinician Payers Payer Name Policy Type Policy Number Effective Date Expiration Date Myron bryant HTW-[id number] 2021 00:00:00 Problems Condition Condition Condition Status [...] nivers anxiety anxiety 9-16 ity of 00:00: Medical Branch Tobacco Tobacco Disease Active Univers use use 9-16 ity of disorder disorder 00:00: Medical Branch General General Disease Active Overview: Univ ers counseling counseling 11-01 Formattin ity of and advice and advice 00:00: g of this [facility] note Medical contracept contracept might be Branch jamison jamison different management management from the original. 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 Generalize Generalize Disease Active U nivers d anxiety d anxiety 9-27 ity of disorder disorder 00:00: Medical Branch Morbid Morbid Disease Active Univers obesity obesity 927 ity of 00:00: [facility] Allergies, Adverse Reactions, Alerts Allergy Allergy Status Severity Reaction(s) Onset Inactive Treating Comm ents Source Name Type Date Date Clinician MORPHINE DRUG Active Low Anxiety Univers INGREDI 7-20 ity of 00:00: [facility] Morphine Propensi Active Nausea Univer s ty to and/or 7-20 ity of adverse Vomiting 00:00: [place] reaction [facility] Social History Social Habit Start Date Stop Date Quantity Comments Source Exposure to 2021-04-03 2021-05-03 Not sure [facility] SARS-CoV-2 (event) 00:00:00 09:51:00 [facility] Alcohol intake 2021-05-03 2021-05-03 .24 /d University of 00:00:00 00:00:00 [facility] Cigarettes smoked 2020-08-24 2020-08-24 Univers ity of current (pack per 00:00:00 00:00:00 [facility] ) - Reported Branch Cigarette 2020-08-24 2020-08-24 University of pack-years 00:00:00 00:00:00 [facility] Tobacco use and 2020-08-24 2020-08-24 Never used Universit y of exposure 00:00:00 00:00:00 [facility] Education 2020-08-24 2020-08-24 21 University of 00:00:00 00:00:00 [facility] Tobacco Comment 2020-08-24 2020-08-24 quit last week Unive [facility] of 00:00:00 00:00:00 [facility] History of tobacco 2012-02-02 2012-02-02 Cigarette Smoker University of use 00:00:00 00:00:00 [facility] Sex [birth year] Universit y of 00:00:00 00:00:00 [facility] Smoking Status Start Date Stop Date Source Current every day smoker 2020-08-24 00:00:00 Uni versity of [facility] Medications Ordered Filled Start Stop Current Ordering Indication Dosage Frequency Signature Comments Components Source Medication Medication Date Date Medication? Clinician (SIG) Name Name dicyclomine 2021- No [id number] 20mg Take 1 Univers 20 mg 09-25 tablet by ity of tablet 00:00: 00:00 mouth [place] 00 :00 every 6 Medical (six) Branch hours as needed for Abdominal pain. ondansetron 2021- No [id number] 4mg Take 1 Univers (ZOFRAN) 4 09-25 tablet by ity of mg tablet 00:00: 00:00 mouth [place] 00 :00 every 8 Medical (eight) Branch hours as needed for Nausea and Vomiting (N/V). omeprazole 2021- No [id number] 20mg Take 1 Univers 20 mg 08-27 capsule by ity of capsule 00:00: 00:00 mouth [place] 00 :00 daily. Medical Branch sulfamethox 2021- No [id number] 1{tbl} Take 1 Univers azole-trime 08-26 tablet by it y of thoprim 00:00: 00:00 mouth 2 [place] 800-160 mg 00 :00 (two) Medical per tablet times Branch daily. HYDROcodone 2021- No [id number] 1{tbl} Take 1 U nivers -acetaminop 08-26 tablet by it y of hen 5-325 00:00: 00:00 mouth [place] mg tablet 00 :00 every 6 Medical (six) Branch hours as needed for Pain (scale 4-6) or Pain (scale 7-10). Indication s: acute pain Vital Signs Vital Name Observation Time Observation Value Comments Source Systolic blood 2021-05-03 14:52:00 144 mm[Hg] Univer sity of [facility] Diastolic blood 2021-05-03 14:52:00 98 mm[Hg] Unive rsity of [facility] Heart rate 2021-05-03 14:52:00 75 /min Universi ty of [facility] Body temperature 2021-05-03 14:51:00 36.22 Ann-Marie [facility] 2021-05-03 14:51:00 20 /min Univ ersity [facility] Body height 2021-05-03 14:51:00 157.5 cm Universi ty of [facility] Body weight 2021-05-03 14:51:00 116.376 kg Universi ty of [facility] BMI 2021-05-03 14:51:00 46.93 kg/m2 Universi ty [facility] Systolic blood 2021-05-03 14:52:00 144 mm[Hg] Univer sity of [facility] Diastolic blood 2021-05-03 14:52:00 98 mm[Hg] Unive rsity of [facility] Heart rate 2021-05-03 14:52:00 75 /min Universi ty [facility] Body temperature 2021-05-03 14:51:00 36.22 Ann-Marie Univ ersity [facility] Respiratory rate 2021-05-03 14:51:00 20 /min Univ ersity [facility] Body height 2021-05-03 14:51:00 157.5 cm Universi ty [facility] Body weight 2021-05-03 14:51:00 116.376 kg Universi ty [facility] BMI 2021-05-03 14:51:00 46.93 kg/m2 Universi ty [facility] Procedures Procedure Date / Time Performed Performing Clinician Sour e LAB ONLY PAP 2021-05-03 16:08:00 Jacquie Noriega [facility] SMEAR-LIQUID BASED [facility] h PAP SMEAR-LIQUID 2021-05-03 16:08:00 Jacquie Noriega [facility] Encounters Start End Encounter Admission Attending Care Care Encounter Source Date/Time Date/Time Type Type Clinicians Facility Department ID 2020-12-06 Emergency [facility] [id number] Univers 17:05:57 ity [facility] 2021-12-03 2021-12-03 Outpatient PR[facility]NA [facility] [id number] Tha 12:38:34 12:38:34 [id number] F Memo 2021-07-05 2021-07-05 Outpatient Sandra HAQUE [facility] [id number] Univers 13:00:00 13:00:00 ity [facility] 2021-06-03 2021-06-03 Outpatient R SHABNAM [facility] [id number] Univers 13:30:00 13:30:00 ity [facility] 2021-05-23 2021-05-23 Orders Doctor BERTHA [id number] Univers 00:00:00 00:00:00 Only Unassigned, CRISELDA [id number] ity of [place] [facility] [id number] Roby as [phone] [address] 2021-05-19 2021-05-19 Telephone [facility] [id number] Univers 00:00:00 00:00:00 Jacquie Landaverde [place] [id number] ity of [facility] [id number] Roby as MATERNAL [phone] [facility] ical & CHILD [address] [place] [address] 2021-05-03 2021-05-03 Outpatient R ALLEN [facility] [id number] Univers 09:30:00 10:51:04 JACQUIE urbina f [facility] 2021-05-03 2021-05-03 [facility] [id number] Univers 09:30:00 10:51:04 Visit Jacquie Landaverde [place] [id number] ity of [facility] [id number] Roby as MATERNAL [id number] [facility] [address] [place] [address] 2021-05-03 2021-05-03 Outpatient R ALLEN [facility] [id number] Univers 09:30:00 10:51:04 JACQUIE santiago o f [facility] 2021-05-03 2021-05-03 Outpatient R ALLEN, [facility] [id number] Univers 09:30:00 10:51:04 JACQUIE santiaog o f [facility] 2021-05-03 2021-05-03 Office [facility] [id number] Univers 09:30:00 10:51:04 Visit Jacquie Landaverde [place] [id number] ity of [facility] [id number] [place] MATERNAL [id number] [facility] & CHILD [address] [place] [address] 2021-05-03 2021-05-03 Orders Doctor BERTHA [id number] Univers 00:00:00 00:00:00 Only Unassigned, CRISELDA [id number] ity of [place] [facility] [id number] [place] [phone] [address] 2021-05-03 2021-05-03 Telephone [facility] 1.2.840.114 [id number] Univers 00:00:00 00:00:00 Jacquie C [place] [id number] ity of [facility] [id number] [place] as MATERNAL [phone] [facility] [address] [place] [address] 2021-05-03 2021-05-03 Telephone [facility] [id number] Univers 00:00:00 00:00:00 Jacquie C [place] [id number] ity of [facility] [id number] [place] MATERNAL [id number] [facility] & CHILD [address] [place] [address] 2020-09-24 2020-09-25 [facility] [id number] Univers 23:09:00 04:02:00 Geraldine Sanches [place] [id number] ity of [place] 4.2.7.2.686 [facility] [id number] [facility] 084 Branch 2020-09-24 2020-09-25 Emergency [facility] [id number] 23:09:00 04:02:00 Geraldine Sanches [place] [id number] [place] [id number] [place] [id number] 2020-09-02 2020-09-02 Hospital Radiology [facility] [id number] Univers 15:30:00 23:59:00 Encounter [place] [id number] ity of [place] [id number] [facility] [id number] [facility] 806 Branch 2020-09-02 2020-09-02 Hospital Radiology [facility] [id number] 15:30:00 23:59:00 Encounter [place] [id number] [place] 4.2.7.2.686 [place] [id number] 2020-09-02 2020-09-02 Outpatient R RADIOLOGY [facility] [id number] Univers 00:00:00 00:00:00 ity of [facility] 2020-08-27 2020-08-27 Emergency [facility] [id number] Univers 21:50:00 23:10:00 Geraldine Sanches [place] [id number] ity of [place] [id number] [facility] [id number] [facility] 084 Branch 2020-08-27 2020-08-27 Emergency [facility], [facility] [id number] 21:50:00 23:10:00 Geraldine Sanches [place] [id number] [place] [id number] [place] [id number] 2020-08-27 2020-08-27 Emergency X [facility], [facility] ERT [id number] Univers 21:50:00 21:50:00 GERALDINE ity of [facility] 2020-08-27 2020-08-27 Transition Nikko Dinh 1.2.840.114 [id number] Univers 00:00:00 00:00:00 of Care Prisca Fox [id number] it y [place] 4[place]2.7.2.686 [place] [id number] [facility] 403 Branch 2020-08-27 2020-08-27 Transition Nikko Dinh [id number] 00:00:00 00:00:00 of Care Prisca Fox [id number] [place] 4.2.7.2.686 [id number] 2020-08-24 2020-08-26 [facility] [id number] [facility] 14:12:00 13:37:00 Encounter Rojelio De La Rosa [id number] ity of [place] 4.2.7.2.686 [place] [id number] [facility] 081 [place] 2020-08-24 2020-08-26 [facility] [id number] 14:12:00 13:37:00 Encounter Rojelio De La Rosa [id number] [place] [id number] [place] [id number] [facility] 2020-08-24 2020-08-24 Emergency X [facility] ERT [id number] Univers 13:52:00 13:52:00 ity of [facility] 2020-08-24 2020-08-24 Orders Doctor STONE 1.2.840.114 [id number] Univers 00:00:00 00:00:00 Only Unassigned, CRISELDA [id number] ity of [place] [facility] [id number] [place]y as [id number] [facility] 009 Branch 2020-08-24 2020-08-24 Orders Doctor STONE 1.2.840.114 [id number] 00:00:00 00:00:00 Only UnassignedCRISELDA 350.1.13.10 [place] [facility] 4.2.7.2.686 [id number] 009 Results This patient has no known results.
[2022-11-20] MEDS ORDERED: NA CHLORIDE 0.9% 1,000 ML ONE (23:05)
[2022-11-20] MEDS ORDERED: KETOROLAC 30 MG/ML INJ ONE (23:05)
[2022-11-20 23:40] LABS: Absolute Lymphocytes (CBC) 2.8 K/uL (0.7-4.9); Hematocrit 39.5 % (36.0-45.0); Lymphocytes % 31.3 % (15.3-44.8); MCV 80.9 fL (80-100); MPV 6.5 fL (7.6-11.3); Platelets 362 thou/uL (152-406); RBC Red Blood Cell Count 4.89 M/uL (3.86-4.86)
[2022-11-20 23:41] LABS: Specific Gravity 1.023 (1.005-1.030)
[2022-11-20 23:51] LABS: Albumin 4.1 g/dL (3.4-5.0); Bilirubin Total 0.8 mg/dL (0.2-1.0); Potassium 3.4 mEq/L (3.5-5.1); Protein, Total 8.2 g/dL (6.4-8.2)
[2022-11-21] LABS: Specific Gravity 1.023 (1.005-1.030); Urine Bacteria <20 /HPF (<20); Urine Bilirubin NEGATIVE (Negative); Urine Blood Negative (Negative); Urine Clarity Extremely Turbid (Clear); Urine Color Light-Yellow (Yellow); Urine Glucose NEGATIVE (Negative); Urine Mucus 2+ /HPF (None Seen); Urine Protein TRACE (Negative); Urine RBC <5 /HPF (None Seen); Urine Urobilinogen Normal (Normal)
[2022-11-21] MEDS ORDERED: MORPHINE 4 MG/ML SYR ONE ×2 (00:30→02:09)
--- NOTE | 2022-11-21 01:51 | ER ---
Nurse's Notes [facility] Name: Omayra Parra Age: 32 yrs Sex: Female : 1990 Arrival Date: 11/20/2022 Time: 20:48 Bed 11 Private MD: Diagnosis: Other and unspecified ovarian cysts Presentation: 11/20 21:31 Chief complaint: Patient states: Left lower back pain that radiates to abdomen since nj1 this morning. Pain getting worse, has taken tylenol, ibuprofen with no relief. Denies dysuria. Coronavirus screen: Vaccine status: Patient reports being unvaccinated. Ebola Screen: Patient denies travel to an Ebola-affected area in the 21 days before illness onset. Risk Assessment: Do you want to hurt yourself or someone else? Patient reports no desire to harm self or others. Onset of symptoms was November 20, 2022. 21:31 Method Of Arrival: Ambulatory [facility] 21:31 Acuity: GAYE 3 nj1 Historical: - Allergies: 11/21 00:21 No Known Allergies; hb - PMHx: 11/20 21:33 Anxiety; Migraine; PCOS; nj1 - PSHx: 21:33 section; Exploratory laparotomy; nj1 - Immunization history:: Client reports having NOT received the Covid vaccine. - Social history:: Smoking status: Patient reports the use of cigarette tobacco products, smokes one-half pack cigarettes per day. Screenin/17 00:12 [facility] ED Fall Risk Assessment (Adult) Score/Fall Risk Level 0 - 2 = Low Risk hb Oriented to surroundings, Maintained a safe environment. Abuse screen: Denies threats or abuse. Denies injuries from another. Nutritional screening: No deficits noted. Tuberculosis screening: No symptoms or risk factors identified. Assessment: 11/20 23:30 General: Appears in no apparent distress. Behavior is calm, cooperative. Pain: Pain hb currently is 8 out of 10 on a pain scale. Neuro: Level of Consciousness is awake, alert, obeys commands, Oriented to person, place, time, situation. Cardiovascular: Patient's skin is warm and dry. Respiratory: Respiratory effort is even, unlabored, Respiratory pattern is regular, symmetrical. GI: No signs and/or symptoms were reported involving the gastrointestinal system. : Reports pain flank(s). EENT: No signs and/or symptoms were reported regarding the EENT system. Derm: Skin is pink, warm \T\ dry. Musculoskeletal: No signs and/or symptoms reported regarding the musculoskeletal system. 11/21 00:30 Reassessment: Patient appears in no apparent distress at this time. Patient is alert, kl oriented x 3, equal unlabored respirations, skin warm/dry/pink. Patient states feeling better. Vital Signs: 11/20 21:31 BP 129 / 93; Pulse 89; Resp 16; Temp 98.2(O); Pulse Ox 99% ; Weight 113.4 kg (M); nj1 Height 5 ft. 2 in. ; Pain 11/14; 11/21 00:12 BP 141 / 92; Pulse 82; Resp 15; Pulse Ox 99% on R/A; Pain 8; hb 02:09 BP 133 / 78; Pulse 70; Resp 18; Pulse Ox 98% on R/A; kl 11/20 21:31 Body Mass Index 45.73 (113.40 kg, 157.48 cm) nj1 11/20 21:31 Pain Scale: Adult nj1 11/21 00:12 Pain Scale: Adult hb ED Course: 11/20 20:52 Patient arrived in ED. gm2 21:11 Jasbir Meredith PA is PHCP. cp 21:11 Jasbir Coleman MD is Attending Physician. cp 21:33 Triage completed. nj1 21:34 Arm band placed on right wrist. nj1 23:12 Inserted saline lock: 20 gauge in left antecubital area, using aseptic technique. Blood jj7 collected. 23:13 Helen Mccain, RN is Primary Nurse. hb 23:13 CBC with Diff Sent. jj7 23:13 CMP Sent. jj7 23:13 Lipase Sent. jj7 11/21 00:12 Patient has correct armband on for positive identification. Provided Education on: . hb 00:20 CT Stone Protocol In Process Unspecified. EDMS 01:30 No apparent distress. Resting quietly. kl 02:10 No provider procedures requiring assistance completed. IV discontinued, intact, kl bleeding controlled, No redness/swelling at site. Pressure dressing applied. Administered Medications: 11/20 23:13 Drug: TORadol - Ketorolac IVP 15 mg IVP once Route: IVP; Site: left antecubital; jj7 11/21 00:23 Follow up: Response: No adverse reaction hb 11/20 23:28 Drug: NS 0.9% IV 1000 ml IV at 1 bolus Per protocol; 1000 mL bolus Route: IV; Rate: 1 hb bolus; Site: right antecubital; 11/21 00:22 Drug: morphine IVP or IV 4 mg IVP once over 4 mins Route: IVP; Infused Over: 4 mins; hb Site: right antecubital; 02:09 Follow up: Response: No adverse reaction 01:55 Drug: morphine IVP or IV 4 mg IVP once over 4 mins Route: IVP; Infused Over: 4 mins; kl Site: right antecubital; 02:09 Follow up: Response: No adverse reaction kl 01:55 Drug: Potassium PO Effervescent Tablet 25 mEq PO once; dissolve in 4 ounces of water or kl juice Route: PO; 02:09 Follow up: Response: No adverse reaction kl Medication: 00:12 VIS not applicable for this client. Outcome: 01:50 Discharge ordered by MD. geovanny 02:10 Discharged to home ambulatory, 02:10 Condition: improved 02:10 Discharge instructions given to patient, Instructed on discharge instructions, follow up and referral plans. medication usage, Demonstrated understanding of instructions, follow-up care, medications, Prescriptions given X 1, 02:10 Patient left the ED. Signatures: Dispatcher [employer] EDMS Anali Mays RN RN kl Page, Corey, PA PA cp Baxter, Heather, RN RN hb Johnson, Juwairiyah, RN RN jj7 Tamra Lopez RN RN nj1 Aviva Rhodes 2 Corrections: (The following items were deleted from the chart) 11/20 21:37 21:31 Height 5 ft. 2 in.; Pain 11/14, Adult; nj1 nj1 11/21 00:21 11/20 21:33 Allergies: Morphine; nj1 hb
--- NOTE | 2022-11-21 01:51 | EDPHYS ---
Physician Documentation [facility] Name: Omayra Parra Age: 32 yrs Sex: Female : 1990 Arrival Date: 11/20/2022 Time: 20:48 Bed 11 Private MD: ED Physician Jasbir Coleman HPI: 11/20 21:15 This 32 yrs old Female presents to ER via Unassigned with complaints of Left Flank Pain.cp 21:15 Onset: The symptoms/episode began/occurred this morning. cp 21:15 Associated signs and symptoms: Pertinent negatives: diarrhea, dysuria, fever, urinary cp frequency, pain radiating to the lower extremities, vomiting. Severity of pain: in the emergency department the pain is unchanged despite home interventions. 21:15 The pain radiates to the left flank. cp 21:15 The patient has experienced similar episodes in the past, today's symptoms are similar, cp to when the patient was apparently diagnosed with ovarian cyst. Historical: - Allergies: 11/21 00:21 No Known Allergies; hb - PMHx: 11/20 21:33 Anxiety; Migraine; PCOS; nj1 - PSHx: 21:33 section; Exploratory laparotomy; nj1 - Immunization history:: Client reports having NOT received the Covid vaccine. - Social history:: Smoking status: Patient reports the use of cigarette tobacco products, smokes one-half pack cigarettes per day. ROS: 21:20 Constitutional: Negative for body aches, chills, fever, poor PO intake, cp 21:20 Eyes: Negative for injury, pain, redness, and discharge, cp 21:20 ENT: Negative for drainage from ear(s), ear pain, sore throat, difficulty swallowing, difficulty handling secretions, 21:20 Cardiovascular: Negative for chest pain, palpitations, 21:20 Respiratory: Negative for cough, shortness of breath, wheezing, 21:20 Abdomen/GI: Positive for abdominal pain, of the left lower abdomen and left adnexa, Negative for vomiting, diarrhea, constipation, 21:20 Back: Positive for flank pain, on the left, 21:20 : Negative for urinary symptoms, vaginal bleeding, vaginal discharge, 21:20 Skin: Negative for cellulitis, rash, 21:20 Neuro: Negative for altered mental status, headache, weakness, 21:20 All other systems are negative, Exam: 21:25 Constitutional: The patient appears in no acute distress, alert, awake, non-toxic, well cp developed, well nourished, obese, 21:25 Head/Face: Normocephalic, atraumatic. cp 21:25 Eyes: Periorbital structures: appear normal, Conjunctiva: normal, no exudate, no injection, Sclera: no appreciated abnormality, Lids and lashes: appear normal, bilaterally, 21:25 ENT: External ear(s): are unremarkable, Nose: is normal, Mouth: Lips: moist, Oral mucosa: pink and intact, moist, Posterior pharynx: Airway: no evidence of obstruction, patent, 21:25 Chest/axilla: Inspection: normal, 21:25 Cardiovascular: Rate: normal, Rhythm: regular, 21:25 Respiratory: the patient does not display signs of respiratory distress, Respirations: normal, no use of accessory muscles, no retractions, labored breathing, is not present, Breath sounds: are clear throughout, no decreased breath sounds, no stridor, no wheezing, 21:25 Abdomen/GI: Inspection: obese Bowel sounds: active, all quadrants, Palpation: soft, in all quadrants, moderate abdominal tenderness, in the left lower quadrant, rebound tenderness, is not appreciated, involuntary guarding, is not appreciated, 21:25 Back: CVA tenderness, is absent, Vital Signs: 21:31 BP 129 / 93; Pulse 89; Resp 16; Temp 98.2(O); Pulse Ox 99% ; Weight 113.4 kg (M); nj1 Height 5 ft. 2 in. ; Pain 10; 11/21 00:12 BP 141 / 92; Pulse 82; Resp 15; Pulse Ox 99% on R/A; Pain 8/10; hb 02:09 BP 133 / 78; Pulse 70; Resp 18; Pulse Ox 98% on R/A; kl 11/20 21:31 Body Mass Index 45.73 (113.40 kg, 157.48 cm) nj1 11/20 21:31 Pain Scale: Adult nj1 11/21 00:12 Pain Scale: Adult hb MDM: 11/20 21:44 Patient medically screened. cp 11/21 01:50 Data reviewed: vital signs, nurses notes, lab test result(s), radiologic studies, CT cp scan. 01:50 Differential diagnosis: nephrolithiasis, pyelonephritis, UTI, ovarian cyst, ovarian cp torsion, diverticulitis. I considered the following discharge prescriptions or medication management in the emergency department Medications were administered in the Emergency Department. See MAR. Counseling: I had a detailed discussion with the patient and/or guardian regarding the historical points, exam findings, and any diagnostic results supporting the discharge/admit diagnosis, the need for outpatient follow up, a family practitioner, to return to the emergency department if symptoms worsen or persist or if there are any questions or concerns that arise at home. Response to treatment: the patient's symptoms have markedly improved after treatment, and as a result, I will discharge patient. Special discussion: Based on the patient's Hx, exam, and Dx evaluation, there is no indication for emergent surgery or inpatient Tx. It is understood by the patient/guardian that if the Sx's persist or worsen they need to return immediately for re-evaluation. 11/20 20:17 Order name: CBC with Diff; Complete Time: 23:59 cp 11/21 01:49 Interpretation: Normal except: RBC 4.89; MPV 6.5. cp 11/2017 Order name: CMP; Complete Time: 23:59 cp 11/21 01:49 Interpretation: Normal except: K 3.4; AST 12; GLOB 4.1; A/G 1.0. cp 11/20 21:17 Order name: Lipase; Complete Time: 23:59 cp 11/20 21:17 Order name: Test, Urine; Complete Time: 23:59 cp 11/20 20:17 Order name: Urinalysis w/ reflexes; Complete Time: 00:22 cp 11/21 01:50 Interpretation: Normal except: [facility] Extremely Turbid; UKET TRACE; UPROT TRACE; UESTR 75.cp 11/20 21:17 Order name: CT Stone Protocol cp 11/20 20:17 Order name: IV Saline Lock; Complete Time: 23:13 cp 11/20 Order name: Labs collected and sent; Complete Time: 23:13 cp Administered Medications: 11/20 23:13 Drug: TORadol - Ketorolac IVP 15 mg IVP once Route: IVP; Site: left antecubital; jj7 11/21 00:23 Follow up: Response: No adverse reaction hb 11/20 23:28 Drug: NS 0.9% IV 1000 ml IV at 1 bolus Per protocol; 1000 mL bolus Route: IV; Rate: 1 hb bolus; Site: right antecubital; 11/21 00:22 Drug: morphine IVP or IV 4 mg IVP once over 4 mins Route: IVP; Infused Over: 4 mins; hb Site: right antecubital; 02:09 Follow up: Response: No adverse reaction kl 01:55 Drug: morphine IVP or IV 4 mg IVP once over 4 mins Route: IVP; Infused Over: 4 mins; kl Site: right antecubital; 02:09 Follow up: Response: No adverse reaction kl 01:55 Drug: Potassium PO Effervescent Tablet 25 mEq PO once; dissolve in 4 ounces of water or kl juice Route: PO; 02:09 Follow up: Response: No adverse reaction kl Disposition Summary: 11/21/22 01:50 Discharge Ordered Notes: Location: Home cp Condition: Stable cp Diagnosis - Other and unspecified ovarian cysts cp Followup: cp - With: Private Physician - When: 1 week - Reason: Recheck today's complaints Discharge Instructions: - Discharge Summary Sheet cp - Ovarian Cyst cp Forms: - Medication Reconciliation Form cp - Thank You Letter cp - Antibiotic Education cp - Prescription Opioid Use cp - Patient Portal Instructions cp - Leadership Thank You Letter cp Prescriptions: - Diclofenac Sodium 75 mg Oral Tablet Sustained Release - take 1 tablet ORAL route 2 times per day; 30 tablet; Refills: 0, Product cp Selection Permitted Signatures: Dispatcher [employer] Anali James RN RN kl Page, Corey, PA PA cp Helen Mccain RN RN hb Johnson, Juwairiyah, RN RN jj7 Tamra Lopez RN RN nj1 Corrections: (The following items were deleted from the chart) 00:21 11/20 21:33 Allergies: Morphine; nj1 hb
[2022-11-21] MEDS ORDERED: POTASSIUM 25 MEQ EFFERV TAB ONE (02:09)
[2022-11-21 02:20] VITALS: TEMP 98.2
[2022-11-21 02:23] VITALS: BP 133/78; O2SAT 98
--- NOTE | 2022-11-21 17:42 | RAD REPORT ---
EXAM DESCRIPTION: CT Abdomen and Pelvis Without Intravenous Contrast CLINICAL HISTORY: FLANK PAIN TECHNIQUE: Axial computed tomography images of the abdomen and pelvis without intravenous contrast. Sagittal and coronal reformatted images were created and reviewed. This CT exam was performed usi ng one or more of the following dose reduction techniques: automated exposure control, adjustment o f the mA and/or kV according to patient size, and/or use of iterative reconstruction technique. COMPARISON: CT Abdomen Pelvis dated 09/26/2020 FINDINGS: Lung bases: Unremarkable. No mass. No consolidation. ABDOMEN: Liver: Unremarkable. Gallbladder and bile ducts: Unremarkable. No calcified stones. No ductal dilation. Pancreas: Unremarkable. No ductal dilation. Spleen: Unremarkable. No splenomegaly. Adrenals: Unremarkable. No mass. Kidneys and ureters: Unremarkable. No obstructing stones. No hydronephrosis. Stomach and bowel: Unremarkable. No obstruction. No mucosal thickening. PELVIS: Appendix: Normal caliber appendix. No findings to suggest acute appendicitis. Bladder: Unremarkable. No stones. Reproductive: 3.5 cm left ovarian cyst. The uterus and right ovary are unremarkable as visualized . ABDOMEN and PELVIS: Intraperitoneal space: Unremarkable. No free air. No significant fluid collection. Bones/joints: No acute fracture. No dislocation. Soft tissues: Unremarkable. Vasculature: Unremarkable. No abdominal aortic aneurysm. Lymph nodes: Unremarkable. No enlarged lymph nodes. IMPRESSION: 1. No renal, ureteral or bladder calculi. No evidence for renal obstruction. 2. 3.5 cm left ovarian cyst. No follow-up imaging is recommended. Reference: JACR 2019;17(2 ):[id number] Electronically signed by: Eli Deleon MD 11/21/2022 1:36 AM CDT Due to temporary technical issues with the PACS/Fluency reporting system, reports are being signed by the in house radiologists without review as a courtesy to insure prompt reporting. The interpreting radiologist is fully responsible for the content of the report.
== END 2022-11-21 02:10 | disposition home or self-care (01) ==
LOC: ER 20:48
DX: N83.292 Other ovarian cyst, left side (principal)
CPT/HCPCS: 36415; 74176; 76377; 80053; 81001; 81025; 83690; 85025; J7030

== ENCOUNTER 2023-01-10 08:17 | Emergency (ER) | payer SELFPAY ==
--- OUTSIDE RECORDS SUMMARY | 2023-01-10 08:20 | XMS REPORT | Continuity of Care Document ---
Author Name Unknown Address [address] [facility] [address] [place] [address] [facility] Address [address] [facility] [place] [address] Care Team Providers Care Prn Physical Therapist Name Role Phone CARMELINA HANLEY Primary Care Physician Unavailab JACQUIE Guzman Attending Clinician Unavail able [email or web address] Attending Clinician UnavailJOSÉ Gonsalez Attending Clinician Unavailable Doctor Unassigned, Santel Attending Clinician U Jacquie Johnson Attending Clinician + Geraldine Szymanski MD Attending Clinician [phone] Radiology Attending Clinician Unavailable RADIOLOGY Attending Clinician Unavailable GERALDINE SZYMANSKI Attending Clinician Unavailable Prisca Dinh RN Attending Clinician [phone] Chavo Jose MD Attending Clinician [phone] Rojelio De La Rosa MD Attending Clinician [phone] [email or web address] Admitting Clinician Rojelio Null MD Admitting Clinician [phone] Payers Payer Name Policy Type Policy Number Effective Date Expirati on Date Source [id number] 2021 00:00:00 Problems Condition Name Condition Details Condition Category Status Onset Date Resolution Date Last Treatment Date Treating Clinician Comments Source Elevated blood pressure reading without diagnosis of hypertensi on Elevated blood pressure reading without diagnosis of hypertensi on Disease Active 3 00:00: 00 [facility] Cellulitis of submental space Cellulitis of submental space Disease Active 08-25 00:00: 00 [facility] Failure of outpatient treatment Failure of outpatient treatment Disease Active 08-24 00:00: 00 [facility] Missed menses Missed menses Disease Active 10-21 00:00: 00 [facility] History of anxiety History of anxiety Disease Active 10-21 00:00: 00 [facility] Tobacco use disorder Tobacco use disorder Disease Active 10-21 00:00: 00 [facility] General counseling and advice for contracept jamison management General counseling and advice for contracept jamison management Disease Active 11-01 00:00: 00 Overview: Formattin g of this note might be different from the original. ICD10 Diagnosis Term [employer] Utility [facility] Generalize d anxiety disorder Generalize d anxiety disorder Disease Active 11-01 00:00: 00 [facility] Morbid obesity Morbid obesity Disease Active 11-01 00:00: 00 [facility] Allergies, Adverse Reactions, Alerts Allergy Name Allergy Type Status Severity Reaction(s) Onset Date Inactive Date Treating Clinician Comments Source MORPHINE DRUG INGREDI Active Low Anxiety 08-24 00:00: 00 [facility] Morphine Propensi ty to adverse reaction s Active Nausea and/or Vomiting 08-24 00:00: 00 [facility] Social History Social Habit Start Date Stop Date Quantity Comments Source Exposure to SARS-CoV-2 (event) 2021-04-03 00:00:00 2021-05-03 09:51:00 Not sure [facility] Alcohol intake 2021-05-03 00:00:00 2021-05-03 00:00:00 .24 /d [facility] Cigarettes smoked current (pack per day) - Reported 2020-08-24 00:00:00 2020-08-24 00:00:00 [facility] Cigarette pack-years 2020-08-24 00:00:00 2020-08-24 00:00:00 [facility] Tobacco use and exposure 2020-08-24 00:00:00 2020-08-24 00:00:00 Never used [facility] Education 2020-08-24 00:00:00 2020-08-24 00:00:00 21 [facility] Tobacco Comment 2020-08-24 00:00:00 2020-08-24 00:00:00 quit last week [facility] History of tobacco use 2012-02-02 00:00:00 2012-02-02 00:00:00 Cigarette Smoker [facility] Sex Assigned At 1990 00:00:00 1990 00:00:00 [facility] Smoking Status Start Date Stop Date Source Current every day smoker 2020-08-24 00:00:00 [facility] Medications Ordered Medication Name Filled Medication Name Start Date Stop Date Current Medication? Ordering Clinician Indication Dosage Frequency Signature (SIG) Comments Components Source dicyclomine 20 mg tablet 09-25 00:00: 00 05-03 00:00 :00 No [id number] 20mg Take 1 tablet by mouth every 6 (six) hours as needed for Abdominal pain. [facility] ondansetron (ZOFRAN) 4 mg tablet 09-25 00:00: 00 05-03 00:00 :00 No [id number] 4mg Take 1 tablet by mouth every 8 (eight) hours as needed for Nausea and Vomiting (N/V). [facility] omeprazole 20 mg capsule 08-27 00:00: 00 05-03 00:00 :00 No [id number] 20mg Take 1 capsule by mouth daily. [facility] sulfamethox azole-trime thoprim 800-160 mg per tablet 08-26 00:00: 00 05-03 00:00 :00 No [id number] 1{tbl} Take 1 tablet by mouth 2 (two) times daily. [facility] HYDROcodone -acetaminop hen 5-325 mg tablet 08-26 00:00: 00 05-03 00:00 :00 No [id number] 1{tbl} Take 1 tablet by mouth every 6 (six) hours as needed for Pain (scale 4-6) or Pain (scale 7-10). Indication s: acute pain [facility] Vital Signs Vital Name Observation Time Observation Value Comments S annette Systolic blood pressure 2021-05-03 14:52:00 144 mm[Hg] [facility] Diastolic blood pressure 2021-05-03 14:52:00 98 mm[Hg] [facility] Heart rate 2021-05-03 14:52:00 75 /min Unive [facility] Body temperature 2021-05-03 14:51:00 36.22 Ann-Marie [facility] Respiratory rate 2021-05-03 14:51:00 20 /min [facility] Body height 2021-05-03 14:51:00 157.5 cm [facility] Body weight 2021-05-03 14:51:00 116.376 kg [facility] BMI 2021-05-03 14:51:00 46.93 kg/m2 [facility] Systolic blood pressure 2021-05-03 14:52:00 144 mm[Hg] [facility] Diastolic blood pressure 2021-05-03 14:52:00 98 mm[Hg] [facility] Heart rate 2021-05-03 14:52:00 75 /min Unive [facility] Body temperature 2021-05-03 14:51:00 36.22 Ann-Marie [facility] Respiratory rate 2021-05-03 14:51:00 20 /min [facility] Body height 2021-05-03 14:51:00 157.5 cm [facility] Body weight 2021-05-03 14:51:00 116.376 kg [facility] BMI 2021-05-03 14:51:00 46.93 kg/m2 [facility] Procedures Procedure Date / Time Performed Performing Clinicia n Source LAB ONLY PAP SMEAR-LIQUID BASED 2021-05-03 16:08:00 Jacquie Villa [facility] PAP SMEAR-LIQUID BASED-CP 2021-05-03 16:08:00 Jacquie Villa [facility] Encounters Start Date/Time End Date/Time Encounter Type Admission Type Attending Clinicians Care Facility Care Department Encounter ID Source 2020-12-06 17:05:57 Emergency [facility] [id number] [facility] 2023-01-01 09:15:00 2023-01-01 09:15:00 Outpatient JACQUIE WU [facility] [id number] [facility] 2022-12-02 00:00:00 2022-12-02 00:00:00 Outpatient [email or web address] [email or web address]_S [facility] [id number] [facility] 2021-12-03 12:38:34 2021-12-03 12:38:34 Outpatient [facility] [id number] [facility] 2021-07-05 13:00:00 2021-07-05 13:00:00 Outpatient JOSÉ PURVIS [facility] [id number] [facility] 2021-06-03 13:30:00 2021-06-03 13:30:00 Outpatient JOSÉ PURVIS [facility] [id number] [facility] 2021-05-23 00:00:00 2021-05-23 00:00:00 Orders Only Doctor Unassigned, Santel [facility] .840.114 350.1.13.10 4.2.7.2.686 [id number] [facility] 2021-05-19 00:00:00 2021-05-19 00:00:00 Telephone Jacquie Villa [facility]DRAULIC [facility] [facility] 1..114 350.1.13.10 4.2.7.2.686 [id number] [facility] 2021-05-03 09:30:00 2021-05-03 10:51:04 Outpatient JACQUIE WU [facility] [id number] [facility] 2021-05-03 09:30:00 2021-05-03 10:51:04 Office Visit Jacquie Villa [facility]DR[facility] [employer] 1.840.114 350.1.13.10 4.2.7.2.686 [id number] [facility] 2021-05-03 09:30:00 2021-05-03 10:51:04 Outpatient R JACQUIE VILLA [facility] [id number] [facility] 2021-05-03 09:30:00 2021-05-03 10:51:04 Outpatient R JACQUIE VILLA [facility] [id number] [facility] 2021-05-03 09:30:00 2021-05-03 10:51:04 Office Visit Jacquie Villa [facility] 1.0.114 350.1.13.10 4.2.7.2.686 [id number] [facility] 2021-05-03 00:00:00 2021-05-03 00:00:00 Orders Only Doctor Unassigned, Santel [facility] 1..114 350.1.13.10 4.2.7.2.686 [id number] [facility] 2021-05-03 00:00:00 2021-05-03 00:00:00 Telephone Jacquie Villa [facility] HYDRAULIC [employer] [facility] 1..114 350.1.13.10 4.2.7.2.686 [id number] [facility] 2021-05-03 00:00:00 2021-05-03 00:00:00 Telephone Jacquie Villa [facility] [employer] [facility] 1.0.114 350.1.13.10 4.2.7.2.686 [id number] [facility] 2020-09-24 23:09:00 2020-09-25 04:02:00 Emergency Geraldine Szymanski [facility] 1.2.840.114 350.1.13.10 4.2.7.2.686 [id number] [facility] 2020-09-24 23:09:00 2020-09-25 04:02:00 Emergency Geraldine Szymanski [facility] 1.2.840.114 350.1.13.10 4.2.7.2.686 [id number] 2020-09-02 15:30:00 2020-09-02 23:59:00 Hospital Encounter Radiology [facility] 1.2.840.114 350.1.13.10 4.2.7.2.686 [id number] [facility] 2020-09-02 15:30:00 2020-09-02 23:59:00 Hospital Encounter Radiology [facility] 1.2.840.114 350.1.13.10 4.2.7.2.686 [id number] 2020-09-02 00:00:00 2020-09-02 00:00:00 Outpatient R RADIOLOGY [facility] [id number] [facility] 2020-08-27 21:50:00 2020-08-27 23:10:00 Emergency Geraldine Szymanski [facility] 1.2.840.114 350.1.13.10 4.2.7.2.686 [id number] [facility] 2020-08-27 21:50:00 2020-08-27 23:10:00 Emergency Geraldine Szymanski [facility] 1.2.840.114 350.1.13.10 4.2.7.2.686 [id number] 2020-08-27 21:50:00 2020-08-27 21:50:00 Emergency X GERALDINE SZYMANSKI [facility] ERT [id number] [facility] 2020-08-27 00:00:00 2020-08-27 00:00:00 Transition of Care Prisca Dinh 1.2.840.114 350.1.13.10 4.2.7.2.686 [id number] [facility] 2020-08-27 00:00:00 2020-08-27 00:00:00 Transition of Care Prisca Dinh 1.2.840.114 350.1.13.10 4.2.7.2.686 [id number] 2020-08-24 14:12:00 2020-08-26 13:37:00 [facility] 1.2.840.114 350.1.13.10 4.2.7.2.686 [id number] [facility] 2020-08-24 14:12:00 2020-08-26 13:37:00 Hospital Encounter Chavo [facility] 1.2.840.114 350.1.13.10 4.2.7.2.686 [id number] 2020-08-24 13:52:00 2020-08-24 13:52:00 Emergency X [facility] ERT [id number] [facility] 2020-08-24 00:00:00 2020-08-24 00:00:00 Orders Only Doctor Unassigned, Santel [facility] 1.2.840.114 350.1.13.10 4.2.7.2.686 [id number] [facility] 2020-08-24 00:00:00 2020-08-24 00:00:00 Orders Only Doctor Unassigned, Santel [facility] 1.2.840.114 350.1.13.10 4.2.7.2.686 [id number]
[2023-01-10] MEDS ORDERED: ONDANSETRON 4 MG/2 ML VIAL ONE (09:13)
[2023-01-10 09:22] LABS: Potassium 3.5 mEq/L (3.5-5.1)
[2023-01-10 09:23] LABS: Absolute Lymphocytes (CBC) 2.1 K/uL (0.7-4.9); Hematocrit 38.1 % (36.0-45.0); Lymphocytes % 23.3 % (15.3-44.8); MCV 81.2 fL (80-100); MPV 6.6 fL (7.6-11.3); Platelets 391 thou/uL (152-406); RBC Red Blood Cell Count 4.69 M/uL (3.86-4.86)
[2023-01-10 09:26] LABS: Protime INR 1.17
--- NOTE | 2023-01-10 09:43 | RAD REPORT ---
EXAM DESCRIPTION: CT - Soft Tissue Neck W/Contr CLINICAL HISTORY: neck swelling COMPARISON: Soft Tissue Neck W/Contr dated 08/23/2020; Soft Tissue Neck W/Contr dated 08/23/2019 TECHNIQUE: Thin axial CT images of the neck, performed following intravenous administration of 100 mL mL Isovue-300. Multiplanar reformats were generated and reviewed. All CT scans are performed using dose optimization technique as appropriate and may include automated exposure control or mA/KV adjustment according to patient size. FINDINGS: Stable mild fat stranding and minimal asymmetric platysma thickening in the right submenta l fossa. Mildly prominent bilateral level 1 A and right level 1 B lymph nodes, not exceeding 8 millim eter in short axis. Nasopharyngeal tissues are normal in appearance. Fossa Rosenmller are normal. Parapharyngeal fat triangles are symmetric. Tongue base structures are normal. Epiglottis and aryepiglottic folds are normal. Piriform sinuses are well aerated. The vocal cords are normal in appearance. No suspicious adenopathy. Salivary glands are normal in appearance. Upper lung ambriz are clear. Included intracranial contents are unremarkable. IMPRESSION: No acute abnormality with attention to the left periauricular soft tissues and left deep neck spaces. Stable mild inflammatory changes along the submental fossa most pronounced right of midline with stab le mildly prominent level 1 lymph nodes. No other suspicious mucosal mass or adenopathy.
[2023-01-10] MEDS ORDERED: CLINDAMYCIN 600MG/D5W 50 ML IV ONE (10:11)
--- NOTE | 2023-01-10 10:34 | ER ---
Nurse's Notes [facility] Name: Omayra Parra Age: 32 yrs Sex: Female : 1990 Arrival Date: 01/10/2023 Time: 08:17 Bed 2 Private MD: Diagnosis: Cellulitis of neck Presentation: 01/10 08:29 Chief complaint: Patient states: L ear started hurting yesterday with slight sore ll1 throat. Swelling and pain to B neck area started today. Coronavirus screen: Client denies travel out of the [place] in the last 14 days. fatigue, headache, sore throat, Client presents with at least one sign or symptom that may indicate coronavirus-19. Standard/surgical mask placed on the client. Ebola Screen: Patient denies travel to an Ebola-affected area in the 21 days before illness onset. Initial Sepsis Screen: Does the patient meet any 2 criteria? No. Patient's initial sepsis screen is negative. Does the patient have a suspected source of infection? No. Patient's initial sepsis screen is negative. Risk Assessment: Do you want to hurt yourself or someone else? Patient reports no desire to harm self or others. Onset of symptoms was January 09, 2023. 08:29 Method Of Arrival: Ambulatory ll1 08:29 Acuity: GAYE 3 ll1 Triage Assessment: 11:12 General: Appears uncomfortable, well groomed, well developed, well nourished, Behavior me1 is calm, cooperative, appropriate for age. EENT: Reports pain in neck. Historical: - Allergies: 08:29 Morphine; ll1 - PMHx: 08:29 Anxiety; Migraine; PCOS; ll1 - PSHx: 08:29 section; Exploratory laparotomy; ll1 - Immunization history:: Adult Immunizations up to date. - Social history:: Smoking status: Reported history of juuling and/or vaping. - Family history:: not pertinent. - Hospitalizations: : No recent hospitalization is reported. Screenin:02 [facility] ED Fall Risk Assessment (Adult) History of falling in the last 3 months, db including since admission No falls in past 3 months (0 pts) Confusion or Disorientation No (0 pts) Intoxicated or Sedated No (0 pts) Impaired Gait No (0 pts) Mobility Assist Device Used No (0 pt) Altered Elimination No (0 pt) Score/Fall Risk Level 0 - 2 = Low Risk Oriented to surroundings, Maintained a safe environment. Abuse screen: Denies threats or abuse. Denies injuries from another. Nutritional screening: No deficits noted. Tuberculosis screening: No symptoms or risk factors identified. Assessment: 08:56 Reassessment: Patient appears in no apparent distress at this time. Patient and/or db family updated on plan of care and expected duration. Pain level reassessed. Patient is alert, oriented x 3, equal unlabored respirations, skin warm/dry/pink. General: Appears in no apparent distress. uncomfortable, Behavior is calm, cooperative. Pain: Complains of pain in neck. Neuro: Level of Consciousness is awake, alert, obeys commands, Oriented to person, place, time, situation, Speech is normal. 09:03 Reassessment: PATIENT TO CT. db Vital Signs: 08:29 BP 147 / 96; Pulse 72; Resp 18; Temp 97.9; Pulse Ox 100% ; Height 5 ft. 3 in. ; Pain ll1 10/10; 08:30 BP 159 / 90; Pulse 62; Resp 17; Pulse Ox 100% on R/A; me1 11:11 BP 118 / 82; Pulse 61; Resp 16; Pulse Ox 100% on R/A; me1 08:29 Pain Scale: Adult ll1 ED Course: 08:18 Patient arrived in ED. mr 08:20 Cristofer Lorenzana MD is Attending Physician. rn 08:29 Arm band placed on. ll1 08:31 Triage completed. ll1 08:36 Teresita Beckham, RN is Primary Nurse. db 08:45 Warm blanket given. db 08:50 Initial lab(s) drawn, by me, sent to lab. Inserted saline lock: 22 gauge in right db antecubital area, using aseptic technique. Blood collected. 09:02 Patient has correct armband on for positive identification. Bed in low position. Call db light in reach. Side rails up X 1. Pulse ox on. NIBP on. 09:08 Soft Tissue Neck W/Contr In Process Unspecified. EDMS 10:33 Bonnie Bernal MD is Referral Physician. rn 11:11 No provider procedures requiring assistance completed. Patient did not have IV access me1 during this emergency room visit. intact, bleeding controlled, No redness/swelling at site. Pressure dressing applied. 11:12 Provided Education on: POC. Verbalized understanding. . me1 Administered Medications: 08:59 Drug: Ondansetron IVP 4 mg IVP once; over 2 minutes Route: IVP; Site: right antecubital;db 10:54 Follow up: Response: No adverse reaction; Nausea is decreased me1 10:08 Drug: Clindamycin IVPB 600 mg IVPB once over 30 mins; (mix in 50 mL) Route: IVPB; me1 Infused Over: 30 mins; Site: right antecubital; 10:55 Follow up: Response: No adverse reaction me1 11:13 Follow up: IV Status: Completed infusion me1 10:52 Drug: Ketorolac IVP 15 mg IVP once Route: IVP; Site: right antecubital; me1 10:55 Follow up: Response: No adverse reaction me1 Medication: 09:03 VIS not applicable for this client. db Outcome: 10:34 Discharge ordered by . rn 11:12 Discharged to home ambulatory, sd1 11:12 Condition: stable 11:12 Discharge instructions given to patient, Instructed on discharge instructions, follow up and referral plans. medication usage, Demonstrated understanding of instructions, follow-up care, medications, Prescriptions given X 1, 11:13 Patient left the ED. me1 Signatures: Dispatcher [employer] EDTN Rosa Schmid, Cristofer Pastor MD MD rn Lewis, Lynsay, RN RN ll1 Teresita Beckham RN RN Erin Mckinnon RN RN me1
--- NOTE | 2023-01-10 10:34 | EDPHYS ---
Physician Documentation [facility] Name: Omayra Parra Age: 32 yrs Sex: Female : 1990 Arrival Date: 01/10/2023 Time: 08:17 Bed 2 Private MD: ED Physician Cristofer Lorenzana HPI: 01/10 10:30 This 32 yrs old Female presents to ER via Ambulatory with complaints of Neck swelling, rn Ear Pain. 10:30 The patient or guardian complains of pain, swelling. The symptoms are located on the rn neck. Onset: The symptoms/episode began/occurred last night. Context: The neck injury/problem resulted from. Associated signs and symptoms: Pertinent negatives: fever, bladder incontinence, bowel incontinence, nausea, numbness, tingling, vomiting, weakness. The pain does not radiate. Severity of symptoms: At their worst the symptoms were mild, in the emergency department the symptoms are unchanged. The patient has experienced similar episodes in the past. Patient reports pain and swelling to neck. His left-sided along angle of jaw and radiates to the left ear. No trauma. Began last night. Has had this twice before, admitted once for it. Denies fever. No history of salivary stones. No history of head and neck cancer. No difficulty swallowing or breathing.. Historical: - Allergies: 08:29 Morphine; ll1 - PMHx: 08:29 Anxiety; Migraine; PCOS; ll1 - PSHx: 08:29 section; Exploratory laparotomy; ll1 - Immunization history:: Adult Immunizations up to date. - Social history:: Smoking status: Reported history of juuling and/or vaping. - Family history:: not pertinent. - Hospitalizations: : No recent hospitalization is reported. ROS: 10:30 Constitutional: Negative for fever, chills, and weight loss, ENT: Negative for injury, rn pain, and discharge, Neck: Positive for neck pain and swelling Cardiovascular: Negative for chest pain, palpitations, and edema, Respiratory: Negative for shortness of breath, cough, wheezing, and pleuritic chest pain, Abdomen/GI: Negative for abdominal pain, nausea, vomiting, diarrhea, and constipation, Exam: 10:30 Constitutional: This is a well developed, well nourished patient who is awake, alert, rn and in no acute distress. Head/Face: Normocephalic, atraumatic. ENT: Moist mucous membranes, no stridor. No dental infection or abscess noted. Mild swelling along left submandibular region. No crepitus. Nontender cervical lymphadenopathy present. No meningismus. No skin discoloration. Respiratory: No increased work of breathing, no retractions or nasal flaring. Vital Signs: 08:29 BP 147 / 96; Pulse 72; Resp 18; Temp 97.9; Pulse Ox 100% ; Height 5 ft. 3 in. ; Pain ll1 10/10; 08:30 BP 159 / 90; Pulse 62; Resp 17; Pulse Ox 100% on R/A; me1 11:11 BP 118 / 82; Pulse 61; Resp 16; Pulse Ox 100% on R/A; me1 08:29 Pain Scale: Adult ll1 MDM: 08:20 Patient medically screened. rn 10:30 Differential diagnosis: Cellulitis, submandibular infection, neck infection, deep space rn neck infection. Data reviewed: vital signs, nurses notes, lab test result(s), radiologic studies, CT scan, and as a result, I will discharge patient. Counseling: I had a detailed discussion with the patient and/or guardian regarding the historical points, exam findings, and any diagnostic results supporting the discharge/admit diagnosis, lab results, radiology results, the need for outpatient follow up, to return to the emergency department if symptoms worsen or persist or if there are any questions or concerns that arise at home. Special discussion: I discussed with the patient/guardian in detail that at this point there is no indication for admission to the hospital. It is understood, however, that if the symptoms persist or worsen the patient needs to return immediately for re-evaluation. Based on the history and exam findings, there is no indication for further emergent testing or inpatient evaluation. I discussed with the patient/guardian the need to see the ENT specialist for further evaluation of the symptoms. I discussed with the patient/guardian the need to see the primary care provider for further evaluation of the symptoms. ED course: CT shows submandibular inflammatory changes, no abscess or evidence of deep space infection. No compressive symptoms. No stridor and no difficulty breathing. Structures are midline. Normal WBC. Afebrile. Unclear why this keeps happening to patient but no evidence of cancer. No salivary stones. At this time no emergent indication for admission. I have personally reviewed all of the results, including but not limited to blood tests and imaging deemed necessary to safely discharge this patient at this time. All results given to and printed out for patient. I personally went over all the results with the patient and answered all questions. Patient will follow-up with PCP and or specialist as discussed. Return precautions given and understood.. 10:30 ED course: Told patient that there still is a chance that symptoms worsen and would rn require to return for IV antibiotics and admission.. 01/10 08:38 Order name: Strep; Complete Time: 09:51 rn 12 09:03 Order name: Basic Metabolic Panel; Complete Time: 09:51 EDMS 01/10 09:03 Order name: CBC with Automated Diff; Complete Time: 09:51 EDMS 01/10 09:03 Order name: Protime (+INR); Complete Time: 09:51 EDMS 01/10 09:03 Order name: PTT, Activated Partial Thromb; Complete Time: 09:51 EDMS 01/10 09:03 Order name: Influenza Screen (A ; Complete Time: 09:51 EDMS 01/10 09:39 Order name: Throat Culture EDMS 01/10 08:54 Order name: Soft Tissue Neck W/Contr; Complete Time: 09:51 EDMS 01/10 08:38 Order name: IV Start; Complete Time: 08:56 rn Administered Medications: 08:59 Drug: Ondansetron IVP 4 mg IVP once; over 2 minutes Route: IVP; Site: right antecubital;db 10:54 Follow up: Response: No adverse reaction; Nausea is decreased me1 10:08 Drug: Clindamycin IVPB 600 mg IVPB once over 30 mins; (mix in 50 mL) Route: IVPB; me1 Infused Over: 30 mins; Site: right antecubital; 10:55 Follow up: Response: No adverse reaction me1 11:13 Follow up: IV Status: Completed infusion me1 10:52 Drug: Ketorolac IVP 15 mg IVP once Route: IVP; Site: right antecubital; me1 10:55 Follow up: Response: No adverse reaction me1 Disposition Summary: 01/10/23 10:34 Discharge Ordered Notes: Location: Home rn Problem: new rn Symptoms: have improved rn Condition: Stable rn Diagnosis - Cellulitis of neck rn Followup: rn - With: Bonnie Bernal MD - When: 2 - 3 days - Reason: Recheck today's complaints, Re-evaluation by your physician Discharge Instructions: - Discharge Summary Sheet rn - Cellulitis, Adult rn Forms: - Medication Reconciliation Form rn - Thank You Letter rn - Antibiotic wilderness guide - Prescription Opioid Use rn - Patient Portal Instructions rn - Leadership Thank You Letter rn Prescriptions: - Clindamycin HCl 300 mg Oral Capsule - take 1 capsule ORAL route every 6 hours for 10 days; 40 capsule; Refills: 0, rn Product Selection Permitted Signatures: Dispatcher [employer] EDMS Cristofer Lorenzana MD MD rn Lewis, Lynsay RN RN ll1 Teresita Beckham, RN RN db Erin Melchor RN RN me1 Corrections: (The following items were deleted from the chart) 09:07 08:58 Soft Tissue Neck W/Contr+CT.RAD.BRZ ordered. EDMS EDMS 11:12 08:58 CBC+H.LAB.BRZ ordered. EDMS EDMS 11:13 08:58 PROTIME (+INR)+COAG.LAB.BRZ ordered. EDMS EDMS 11:13 08:58 PTT, ACTIVATED+COAG.LAB.BRZ ordered. EDMS EDMS
[2023-01-10] MEDS ORDERED: KETOROLAC 30 MG/ML INJ ONE (11:05)
[2023-01-10 16:20] VITALS: TEMP 97.9; O2SAT 100
[2023-01-10 16:23] VITALS: BP 118/82
== END 2023-01-10 11:13 | disposition home or self-care (01) ==
LOC: ER 08:17
DX: L03.221 Cellulitis of neck (principal)
CPT/HCPCS: 36415; 70491; 80048; 85025; 85610; 85730; 87070; 87081; 87804; 96365; 96375; 99284; J2405; Q9967

== ENCOUNTER 2023-01-13 16:13 | Inpatient (IN) | payer SELFPAY ==
--- OUTSIDE RECORDS SUMMARY | 2023-01-13 16:17 | XMS REPORT | Continuity of Care Document ---
Author Name Unknown Address [address] [facility] [address] [place] [address] [facility] Address [address] [facility] [address] [place] [address] Care Team Providers Care Busperson Name Role Phone Rosa Rodriguez Primary Care Physician [phone] SHERLEY DIEZ Attending Clinician Unavailable Sherley Diez MD Attending Clinician [phone] JACQUIE NORIEGA Attending Clinician Unavail able GC_GCBZW_Lalita_S Attending Clinician UnavailJOSÉ Gonsalez Attending Clinician Unavailable Doctor Unassigned, [place] Attending Clinician U navailable Leann Jacquie WHITMAN Attending Clinician + Geraldine Galvan MD Attending Clinician [phone] Radiology Attending Clinician Unavailable RADIOLOGY Attending Clinician Unavailable GERALDINE GALVAN Attending Clinician Unavailable Prisca Dinh RN Attending Clinician [phone] Chavo Jose MD Attending Clinician [phone] Rojelio De La Rosa MD Attending Clinician [phone] FERNY_GCBZW_Lalita_S Admitting Clinician UnavailRojelio Brush MD Admitting Clinician [phone] Payers Payer Name Policy Type Policy Number Effective Date Expirati on Date Source [facility] [id number] 2021 00:00:00 Problems Condition Name Condition Details Condition Category Status Onset Date Resolution Date Last Treatment Date Treating Clinician Comments Source Elevated blood pressure reading without diagnosis of hypertensi on Elevated blood pressure reading without diagnosis of hypertensi on Disease Active 3-29 00:00: 00 [facility] Cellulitis of submental space Cellulitis of submental space Disease Active 08-25 00:00: 00 [facility] Failure of outpatient treatment Failure of outpatient treatment Disease Active 08-24 00:00: 00 [facility] Missed menses Missed menses Disease Active 10-21 00:00: 00 [facility] History of anxiety History of anxiety Disease Active 10-21 00:00: 00 [facility] Tobacco use disorder Tobacco use disorder Disease [facility] 10-21 00:00: 00 [facility] General counseling and advice for contracept jamison management General counseling and advice for contracept jamison management Disease [facility] 11-01 00:00: 00 Overview: Formattin g of this note might be different from the original. ICD10 Diagnosis Term [employer] [facility] Generalize d anxiety disorder Generalize d anxiety disorder Disease [facility] 11-01 00:00: 00 [facility] Morbid obesity Morbid obesity Disease [facility] 11-01 00:00: 00 [facility] Allergies, Adverse Reactions, Alerts Allergy Name Allergy Type Status Severity Reaction(s) Onset Date Inactive Date Treating Clinician Comments Source MORPHINE DRUG INGREDI Active Low Anxiety 08-24 00:00: 00 [facility] Morphine Propensi ty to adverse reaction s Active Nausea and/or Vomiting 08-24 00:00: 00 [facility] Social History Social Habit Start Date Stop Date Quantity Comments Source Sexual orientation [facility] History of Social function 2023-01-11 00:00:00 2023-01-11 00:00:00 [facility] Alcohol intake 2023-01-11 00:00:00 2023-01-11 00:00:00 .24 /d [facility] Exposure to SARS-CoV-2 (event) 2021-04-03 00:00:00 2021-05-03 09:51:00 Not sure [facility] Cigarettes smoked current (pack per day) - Reported 2021-05-03 00:00:00 2021-05-03 00:00:00 [facility] Cigarette pack-years 2021-05-03 00:00:00 2021-05-03 00:00:00 [facility] Tobacco use and exposure 2021-05-03 00:00:00 2021-05-03 00:00:00 Smokeless tobacco non-user [facility] Education - What is the highest level of school you have completed or the highest degree you have received? 2020-08-24 00:00:00 2020-08-24 00:00:00 Some college, no degree [facility] Tobacco Comment 2020-08-24 00:00:00 2020-08-24 00:00:00 quit last week [facility] History of tobacco use 2012-02-02 00:00:00 2012-02-02 00:00:00 Cigarette Smoker [facility] Sex Assigned At 1990 00:00:00 1990 00:00:00 [facility] Smoking Status Start Date Stop Date Source Smokes tobacco daily 2021-05-03 00:00:00 [facility] Medications Ordered Medication Name Filled Medication Name Start Date Stop Date Current Medication? Ordering Clinician Indication Dosage Frequency Signature (SIG) Comments Components Source acetaminoph en (TYLENOL) tablet 975 mg 2022-02 21:00: 00 01-11 19:56 :00 No 975mg 975 mg, Oral, ONCE NOW, 1 dose, On Sun01/11/23 at 1500, [facility] ondansetron (ZOFRAN (PF)) injection 4 mg 2022-02 20:00: 00 01-11 19:56 :00 No 4mg 4 mg, Slow IV Push, ONCE, 1 dose, On Sun01/11/23 at 1400, [facility] iopamidol (ISOVUE 370-500 mL) injection 80 mL 2022-02 20:00: 00 01-11 20:00 :00 No [id number] 80mL 80 mL, Intravenou s, ONCE, 1 dose, On Glory 01/11/23 at 1400, Routine [facility] ketorolac (TORADOL) injection 30 mg 2022-02 19:15: 00 01-11 18:46 :00 No 30mg 30 mg, Slow IV Push, ONCE NOW, 1 dose, On Glory 01/11/23 at 1315, MAKAYLA [facility] ampicillin- sulbactam (UNASYN) 3 g in NaCl 0.9% (NS) 100 mL MINI-BAG 2022-02 18:30: 00 01-11 19:52 :00 No 3g 3 g, IV Piggyback, ONCE, 1 dose, On Glory 01/11/23 at 1230, Administer over 30 Minutes, 100 mL
Reas on for Anti-Infec tive: Documented Infection< br>Documen tali Infection Site: HEENT
D uration of Therapy: Other (see Comments) [facility] dexamethaso ne sod phos PF injection 10 mg 2022-02 18:30: 00 01-11 18:47 :00 No 10mg 10 mg, Slow IV Push, ONCE, 1 dose, On Glory 01/11/23 at 1230, 1 mL [facility] diclofenac 75 mg EC tablet 2022-02 00:00: 00 Yes [id number] 75mg Take 1 tablet by mouth in the morning and 1 tablet in the evening. Take with meals. [facility] ondansetron 4 mg disintegrat ing tablet 2022-02 00:00: 00 Yes [id number] 4mg Take 1 tablet by mouth every 8 (eight) hours as needed for Nausea and Vomiting (N/V). [facility] acetaminoph en (TYLENOL ARTHRITIS PAIN) 650 mg CR tablet 2022-02 00:00: 00 Yes [id number] 650mg Take 1 tablet by mouth every 8 (eight) hours as needed for Pain. [facility] amoxicillin -clavulanat e 875-125 mg per tablet 2022-02 2-07 00:00: 00 01-22 05:59 :00 Yes [id number] 1{tbl} Take 1 tablet by mouth every 12 (twelve) hours for 10 days. [facility] dicyclomine 20 mg tablet 09-25 00:00: 00 05-03 00:00 :00 No [id number] 20mg Take 1 tablet by mouth every 6 (six) hours as needed for Abdominal pain. [facility] ondansetron (ZOFRAN) 4 mg tablet 09-25 00:00: 00 05-03 00:00 :00 No [id number] 4mg Take 1 tablet by mouth every 8 (eight) hours as needed for Nausea and Vomiting (N/V). [facility] omeprazole 20 mg capsule 08-27 00:00: 00 05-03 00:00 :00 No [id number] 20mg Take 1 capsule by mouth daily. [facility] sulfamethox azole-trime thoprim 800-160 mg per tablet 08-26 00:00: 00 05-03 00:00 :00 No [id number] 1{tbl} Take 1 tablet by mouth 2 (two) times daily. [facility] HYDROcodone -acetaminop hen 5-325 mg tablet 08-26 00:00: 00 05-03 00:00 :00 No [id number] 1{tbl} Take 1 tablet by mouth every 6 (six) hours as needed for Pain (scale 4-6) or Pain (scale 7-10). Indication s: acute pain [facility] Immunizations Ordered Immunization Name Filled Immunization Name Date Status Comments Source TDAP 2012-09-25 00:00:00 Completed [facility] Meningococcal Vaccine 2011-01-25 00:00:00 Completed [facility] Rubella 2010-04-01 00:00:00 Completed [facility] Td 2006-02-05 00:00:00 Completed [facility] Varicella (varivax)(chicken pox) 1996-02-06 00:00:00 Completed [facility] Meningococcal Vaccine Unknown Completed [facility] Rubella Unknown Completed [facility] TD, NOS Unknown Completed [facility] Varicella (varivax)(chicken pox) Unknown Completed [facility] TDAP Unknown Completed [facility] Vital Signs Vital Name Observation Time Observation Value Comments S ource Systolic blood pressure 2023-01-11 20:00:00 144 mm[Hg] [facility] Diastolic blood pressure 2023-01-11 20:00:00 100 mm[Hg] [facility] Heart rate 2023-01-11 20:00:00 74 /min [facility] Respiratory rate 2023-01-11 20:00:00 16 /min [facility] Oxygen saturation in Arterial blood by Pulse oximetry 2023-01-11 20:00:00 97 /min [facility] Body temperature 2023-01-11 18:04:00 37.11 Ann-Marie [facility] Body height 2023-01-11 18:04:[address] [facility] Body weight 2023-01-11 18:04:[address] [facility] BMI 2023-01-11 18:04:00 47.55 kg/m2 [facility] Systolic blood pressure 2021-05-03 14:52:00 144 mm[Hg] [facility] Diastolic blood pressure 2021-05-03 14:52:00 98 mm[Hg] [facility] Heart rate 2021-05-03 14:52:00 75 /min [facility] Body temperature 2021-05-03 14:51:00 36.22 Ann-Marie [facility] Respiratory rate 2021-05-03 14:51:00 20 /min [facility] Body height 2021-05-03 14:51:00 157.5 cm [facility] Body weight 2021-05-03 14:51:00 116.376 kg [facility] BMI 2021-05-03 14:51:00 46.93 kg/m2 [facility] Systolic blood pressure 2021-05-03 14:52:00 144 mm[Hg] [facility] Diastolic blood pressure 2021-05-03 14:52:00 98 mm[Hg] [facility] Heart rate 2021-05-03 14:52:00 75 /min [facility] Body temperature 2021-05-03 14:51:00 36.22 Ann-Marie [facility] Respiratory rate 2021-05-03 14:51:00 20 /min [facility] Body height 2021-05-03 14:51:[address] [facility] Body weight 2021-05-03 14:51:[address] [facility] BMI 2021-05-03 14:51:00 46.93 kg/m2 [facility] Procedures Procedure Date / Time Performed Performing Clinicia n Source CT SOFT TISSUE NECK W CONTRAST 2023-01-11 19:00:00 Sherley Diez [facility] COMP. METABOLIC PANEL (66711) 2023-01-11 18:45:00 Sherley Diez [facility] CBC WITH DIFF 2023-01-11 18:45:00 Sherley Diez [facility] POCT TEST 2023-01-11 18:39:00 Sravan Diez [facility] CONSENT/REFUSAL FOR DIAGNOSIS AND TREATMENT 2023-01-11 18:00:13 Doctor Unassigned, [place] [facility] LAB ONLY PAP SMEAR-LIQUID BASED 2021-05-03 16:08:00 Jacquie Noriega [facility] PAP SMEAR-LIQUID BASED-CP 2021-05-03 16:08:00 Jacquie Noriega [facility] Encounters Start Date/Time End Date/Time Encounter Type Admission Type Attending Clinicians Care Facility Care Department Encounter ID Source 2020-12-06 17:05:57 Emergency [facility] [id number] [facility] 2023-01-11 12:05:00 2023-01-11 14:34:00 Emergency X SHERLEY DIEZ [facility] ERT [id number] [facility] 2023-01-11 12:05:00 2023-01-11 14:34:00 Emergency Sherley Diez [facility] 1.84.114 350.1.13.10 4.2.7.2.686 [id number] [facility] 2023-01-01 09:15:00 2023-01-01 09:15:00 Outpatient JACQUIE WU [facility] [id number] [facility] 2022-12-02 00:00:00 2022-12-02 00:00:00 Outpatient GC_GCBZW_Ka diyala_S PRIV [facility] [id number] [facility] 2021-12-03 12:38:34 2021-12-03 12:38:34 Outpatient [facility] [id number] Tha Flaherty Memo 2021-07-05 13:00:00 2021-07-05 13:00:00 Outpatient JOSÉ PURVIS [facility] [id number] [facility] 2021-06-03 13:30:00 2021-06-03 13:30:00 Outpatient JOSÉ PURVIS [facility] [id number] [facility] 2021-05-23 00:00:00 2021-05-23 00:00:00 Orders Only Doctor Unassigned, [place] [facility] .84.114 350.1.13.10 4.2.7.2.686 [id number] [facility] 2021-05-19 00:00:00 2021-05-19 00:00:00 Telephone Jacquie Noriega [facility] CIVIL LITIGATION [facility] 1.840.114 350.1.13.10 4.2.7.2.686 [id number] [facility] 2021-05-03 09:30:00 2021-05-03 10:51:04 Outpatient JACQUIE WU [facility] [id number] [facility] 2021-05-03 09:30:00 2021-05-03 10:51:04 Office Visit Jacquie Noriega [facility] CIVIL LITIGATION ATTORNEY [facility] & CHILD [facility] 1..114 350.1.13.10 4.2.7.2.686 [id number] [facility] 2021-05-03 09:30:00 2021-05-03 10:51:04 Outpatient R JACQUIE NORIEGA [facility] [id number] [facility] 2021-05-03 09:30:00 2021-05-03 10:51:04 Outpatient R JACQUIE NORIEGA [facility] [id number] [facility] 2021-05-03 09:30:00 2021-05-03 10:51:04 Office Visit Jacquie Noriega [facility] CIVIL LITIGATION ATTORNEY [facility]ILD [facility] 1..114 350.1.13.10 4.2.7.2.686 [id number] [facility] 2021-05-03 00:00:00 2021-05-03 00:00:00 Orders Only Doctor Unassigned, Masthope [facility] 1..114 350.1.13.10 4.2.7.2.686 [id number] [facility] 2021-05-03 00:00:00 2021-05-03 00:00:00 Telephone Jacquie Noriega [facility] CIVIL LITIGATION ATTORNEY [facility] CHILD [facility] 1..114 350.1.13.10 4.2.7.2.686 [id number] [facility] 2021-05-03 00:00:00 2021-05-03 00:00:00 Telephone Jacquie Noriega [facility] CIVIL LITIGATION ATTORNEY [facility] CHILD [facility] 1..114 350.1.13.10 4.2.7.2.686 [id number] [facility] 2020-09-24 23:09:00 2020-09-25 04:02:00 Emergency Geraldine Galvan [facility] 1.2.840.114 350.1.13.10 4.2.7.2.686 [id number] [facility] 2020-09-24 23:09:00 2020-09-25 04:02:00 Emergency Geraldine Galvan [facility] 1.2.840.114 350.1.13.10 4.2.7.2.686 [id number] 2020-09-02 15:30:00 2020-09-02 23:59:[address] [facility] 1.2.840.114 350.1.13.10 4.2.7.2.686 [id number] [facility] 2020-09-02 15:30:00 2020-09-02 23:59:[address] [facility] 1.2.840.114 350.1.13.10 4.2.7.2.686 [id number] 2020-09-02 00:00:00 2020-09-02 00:00:00 Outpatient R [facility] [id number] [facility] 2020-08-27 21:50:00 2020-08-27 23:10:00 Emergency Geraldine Galvan [facility] 1.2.840.114 350.1.13.10 4.2.7.2.686 [id number] [facility] 2020-08-27 21:50:00 2020-08-27 23:10:00 Emergency Geraldine Galvan [facility] 1.2.840.114 350.1.13.10 4.2.7.2.686 [id number] 2020-08-27 21:50:00 2020-08-27 21:50:00 Emergency X GERALDINE GALVAN [facility] ERT [id number] [facility] 2020-08-27 00:00:00 2020-08-27 00:00:00 Transition of Care Prisca Dinh 1.2.840.114 350.1.13.10 4.2.7.2.686 [id number] [facility] 2020-08-27 00:00:00 2020-08-27 00:00:00 Transition of Care Prisca Dinh 1.2.840.114 350.1.13.10 4.2.7.2.686 [id number] 2020-08-24 14:12:00 2020-08-26 13:37:00 Hospital Encounter Chavo Jsoe [facility] 1.2.840.114 350.1.13.10 4.2.7.2.686 [id number] 2020-08-24 14:12:00 2020-08-26 13:37:00 Hospital Encounter Chavo Jose [facility] 1.2.840.114 350.1.13.10 4.2.7.2.686 [id number] [facility] 2020-08-24 13:52:00 2020-08-24 13:52:00 Emergency X [facility] ERT [id number] [facility] 2020-08-24 00:00:00 2020-08-24 00:00:00 Orders Only Doctor Unassigned, [place]ope [facility] 1.2.840.114 350.1.13.10 4.2.7.2.686 [id number] 2020-08-24 00:00:00 2020-08-24 00:00:00 Orders Only Doctor Unassigned, Masthope [facility] 1.2.840.114 350.1.13.10 4.2.7.2.686 [id number] [facility] Results Test Description Test Time Test Comments Results Result Co mments Source [facility] WITH [id number] 19:29:18* Test Item Value Reference Range Interpretation Comme nts WBC (test code = 6690-2) 7.78 See_Comment [Automated messa ge] The system which generated this result transmitted reference range: 4.30 - 11.10 10*3/?L. The reference range was not used to interpret this result as normal/abnormal. RBC (test code = 789-8) 4.53 See_Comment [Automated messa ge] The system which generated this result transmitted reference range: 3.93 - 5.25 10*6/?L. The reference range was not used to interpret this result as normal/abnormal. HGB (test code = 718-7) 12.6 g/dL 11.6-15.0 HCT (test code = 4544-3) 37.9 % 35.7-45.2 MCV (test code = 787-2) 83.7 fL 80.6-95.5 MCH (test code = 785-6) 27.8 pg 25.9-32.8 MCHC (test code = 786-4) 33.2 g/dL 31.6-35.1 RDW-SD (test code = 46644-2) 38.3 fL 39.0-49.9 L RDW-CV (test code = 788-0) 12.6 % 12.0-15.5 PLT (test code = 777-3) 345 See_Comment [Automated messa ge] The system which generated this result transmitted reference range: 166 - 358 10*3/?L. The reference range was not used to interpret this result as normal/abnormal. MPV (test code = 46349-7) 8.6 fL 9.5-12.9 L NRBC/100 WBC (test code = 4043303306) 0.0 See_Comment [Automated TapBookAuthor ssage] The system which generated this result transmitted reference range: 0.0 - 10.0 /100 WBCs. The reference range was not used to interpret this result as normal/abnormal. NRBC x10^3 (test code = 7691154359) See_Comment [Automated messa ge] The system which generated this result transmitted reference range: 10*3/?L. The reference range was not used to interpret this result as normal/abnormal. GRAN MAT (NEUT) % (test code = 770-8) 70.2 % IMM GRAN % (test code = 6560155323) 0.40 % LYMPH % (test code = 736-9) 21.9 % MONO % (test code = 5905-5) 4.4 % EOS % (test code = 713-8) 2.6 % BASO % (test code = 706-2) 0.5 % GRAN MAT x10^3(ANC) (test code = 7354516543) 5.47 10*3/uL 1.88-7.09 IMM GRAN x10^3 (test code = 7361416890) 0.03 10*3/uL 0.00-0.06 LYMPH x10^3 (test code = 731-0) 1.70 10*3/uL 1.32-3.29 MONO x10^3 (test code = 742-7) 0.34 10*3/uL 0.33-0.92 EOS x10^3 (test code = 711-2) 0.20 10*3/uL 0.03-0.39 BASO x10^3 (test code = 704-7) 0.04 10*3/uL 0.01-0.07 Lab Interpretation (test code = 31792-0) [facility]normal [id number] 18:39:00* Test Item Value Reference Range Interpretation Comme nts POCT PREG (test code = 1605) Negative On board controls acceptable with C Line (test code = 3574) Yes POCT PREG LOT # (test code = 3575) [id number] POCT PREG TEST DATE ( test code = 3576) 04/15/2024 Lab Interpretation (test cod e = 01775-5) Normal [facility]
[2023-01-13] MEDS ORDERED: NA CHLORIDE 0.9% 1,000 ML ONE (17:14)
[2023-01-13 17:36] LABS: Specific Gravity 1.025 (1.005-1.030)
[2023-01-13 17:45] LABS: Absolute Lymphocytes (CBC) 2.9 K/uL (0.7-4.9); MCV 80.6 fL (80-100); MPV 6.3 fL (7.6-11.3); Platelets 377 thou/uL (152-406); RBC Red Blood Cell Count 4.34 M/uL (3.86-4.86)
[2023-01-13 17:55] LABS: Albumin 3.4 g/dL (3.4-5.0); Bilirubin Total 0.4 mg/dL (0.2-1.0); Protein, Total 7.2 g/dL (6.4-8.2)
[2023-01-13] MEDS ORDERED: POTASSIUM 25 MEQ EFFERV TAB ONE (18:23)
--- NOTE | 2023-01-13 18:32 | ER ---
Nurse's Notes [facility] Name: Omayra Parra Age: 32 yrs Sex: Female : 1990 Arrival Date: 01/13/2023 Time: 16:13 Bed 15 Private MD: Diagnosis: Cellulitis of face-failed outpatient Presentation: 01/13 16:24 Chief complaint: On Augmentin Day 4 for facial cellulitis, c/o pain 10/15. Coronavirus hb screen: At this time, the client does not indicate any symptoms associated with coronavirus-19. Ebola Screen: No symptoms or risks identified at this time. Initial Sepsis Screen: Does the patient meet any 2 criteria? No. Patient's initial sepsis screen is negative. Does the patient have a suspected source of infection? No. Patient's initial sepsis screen is negative. Risk Assessment: Do you want to hurt yourself or someone else? Patient reports no desire to harm self or others. Onset of symptoms was January 08, 2023. 16:24 Method Of Arrival: Ambulatory hb 16:24 Acuity: GAYE 3 hb Historical: - Allergies: 16:26 Morphine (Vomiting); hb - PMHx: 16:26 Anxiety; Migraine; PCOS; hb - PSHx: 16:26 section; Exploratory laparotomy; hb - Immunization history:: Adult Immunizations up to date. - Social history:: Smoking status: Patient denies any tobacco usage or history of. Screenin:00 Tuberculosis screening: No symptoms or risk factors identified. db 17:34 [facility] ED Fall Risk Assessment (Adult) History of falling in the last 3 months, db including since admission No falls in past 3 months (0 pts) Confusion or Disorientation No (0 pts) Intoxicated or Sedated No (0 pts) Impaired Gait No (0 pts) Mobility Assist Device Used No (0 pt) Altered Elimination No (0 pt) Score/Fall Risk Level 0 - 2 = Low Risk Oriented to surroundings, Maintained a safe environment. Abuse screen: Denies threats or abuse. Denies injuries from another. Nutritional screening: No deficits noted. Assessment: 17:33 Reassessment: Patient appears in no apparent distress at this time. Patient and/or db family updated on plan of care and expected duration. Pain level reassessed. Patient is alert, oriented x 3, equal unlabored respirations, skin warm/dry/pink. UNDER CHIN AND NECK SWELLING SEEN HERE 3 DAYS AGO FOR SYMPTOMS. General: Appears in no apparent distress. comfortable, Behavior is calm, cooperative. Neuro: Level of Consciousness is awake, alert, obeys commands, Oriented to person, place, time, situation. 18:19 Reassessment: Patient appears in no apparent distress at this time. Patient and/or db family updated on plan of care and expected duration. Pain level reassessed. Patient is alert, oriented x 3, equal unlabored respirations, skin warm/dry/pink. Pain: Complains of pain in left jaw and chin. Respiratory: Airway is patent Respiratory effort is even, unlabored, Respiratory pattern is regular, symmetrical. 18:35 Reassessment: PT AMBULATORY TO THE RESTROOM. db 18:37 Reassessment: PT TO CT. db Vital Signs: 16:24 BP 150 / 79; Pulse 83; Resp 16; Temp 98.5(TE); Pulse Ox 100% on R/A; Weight 117.93 kg; hb Height 5 ft. 2 in. ; Pain 9/10; 17:05 BP 141 / 74; Pulse 76; Resp 16; Pulse Ox 99% on R/A; db 17:30 BP 151 / 90; Pulse 80; Resp 16; Pulse Ox 100% on R/A; db 18:30 BP 156 / 90; Pulse 79; Resp 18; Pulse Ox 100% on R/A; db 20:30 BP 161 / 104; Pulse 75; Resp 16; Pulse Ox 100% on R/A; jb4 16:24 Body Mass Index 47.55 (117.93 kg, 157.48 cm) hb 16:24 Pain Scale: Adult hb [place] Coma Score: 17:31 Eye Response: spontaneous(4). Motor Response: obeys commands(6). Verbal Response: sb4 oriented(5). Total: 15. ED Course: 16:15 Patient arrived in ED. im 16:26 Triage completed. hb 16:26 Yany Frye PA-C is PHCP. sb4 16:26 Nathan Ruvalcaba is Attending Physician. sb4 16:27 Arm band placed on. hb 16:29 Teresita Beckham, RN is Primary Nurse. db 17:00 Patient has correct armband on for positive identification. Bed in low position. Call db light in reach. Side rails up X 1. Pulse ox on. NIBP on. 17:25 Inserted saline lock: 22 gauge in right antecubital area, using aseptic technique. db Blood collected. 17:34 No provider procedures requiring assistance completed. db 18:30 Evelio Meza MD is Hospitalizing Provider. sb4 18:52 Facial Bones W/ Con \T\ MPR CT In Process Unspecified. EDMS 21:37 Patient admitted, IV remains in place. jb4 Administered Medications: 17:25 Drug: NS 0.9% IV 1000 ml IV at 1 bolus Per protocol; 1000 mL bolus Route: IV; Rate: 1 db bolus; Site: right antecubital; 18:19 Drug: Potassium PO Effervescent Tablet 50 mEq PO once; dissolve in 4 ounces of water or db juice Route: PO; 19:05 Drug: Clindamycin IVPB 600 mg IVPB once over 30 mins; (mix in 50 mL) Route: IVPB; db Infused Over: 30 mins; Site: right antecubital; Outcome: 18:31 Decision to Hospitalize by Provider. sb4 21:37 Admitted to Med/surg accompanied by nurse, via wheelchair, room 210, jb4 21:37 Condition: stable 21:37 Discharge instructions given to patient, Instructed on the need for admit, Demonstrated understanding of instructions, 21:37 Patient left the ED. jb4 Signatures: Dispatcher [employer] EDMS Helen Mccain, Isrrael Fernandez RN, RN RN jb4 Teresita Beckham RN RN db Brown, Sophia PASully PASully sb4 Aviva Solorzano
--- NOTE | 2023-01-13 18:32 | EDPHYS ---
Physician Documentation [facility] Name: Omayra Parra Age: 32 yrs Sex: Female : 1990 Arrival Date: 01/13/2023 Time: 16:13 Bed 15 Private MD: ED Physician Nathan Ruvalcaba HPI: 01/13 17:27 This 32 yrs old Female presents to ER via Ambulatory with complaints of General sb4 Weakness, Facial Swelling. 17:27 The patient or guardian reports pain, swelling, tenderness. The complaints affect the sb4 left cheek, chin and left jaw. Onset: The symptoms/episode began/occurred 1 week(s) ago. The patient has experienced similar episodes in the past, a few times, but today's symptoms are worse. Patient states the left side of her face has gradually become more red and swollen over the past week. She states that she has some pimples under her chin that are erythematous and believes where the infection started. She was seen here a few days ago and prescribed clindamycin. Few days later she was seen at [facility] and prescribed Augmentin. She states that she has been taking his medications as prescribed but feels that she is just getting worse. She has had to be hospitalized twice for facial cellulitis in the past. She states now she is feeling very weak and generally unwell. Historical: - Allergies: 16:26 Morphine (Vomiting); hb - PMHx: 16:26 Anxiety; Migraine; PCOS; hb - PSHx: 16:26 section; Exploratory laparotomy; hb - Immunization history:: Adult Immunizations up to date. - Social history:: Smoking status: Patient denies any tobacco usage or history of. ROS: 17:31 Abdomen/GI: Negative for abdominal pain, nausea, vomiting, diarrhea, and constipation, sb4 17:31 Constitutional: Positive for malaise, 17:31 Neck: Positive for pain at rest, swelling, tenderness, 17:31 Skin: Positive for cellulitis, erythema, swelling, of the left jaw and chin and left cheek, 17:31 All other systems are negative, Exam: 17:31 Constitutional: This is a well developed, well nourished patient who is awake, alert, sb4 and in no acute distress. Eyes: Extra-ocular motions intact. Periorbital areas with no swelling, redness, or edema. ENT: Mucous membranes moist. Cardiovascular: Regular rate and rhythm with a normal S1 and S2. Respiratory: Lungs have equal breath sounds bilaterally, clear to auscultation and percussion. No rales, rhonchi or wheezes noted. No increased work of breathing, no retractions or nasal flaring. Abdomen/GI: Soft, non-tender, no distension. MS/ Extremity: Pulses equal, no cyanosis. Neurovascular intact. Full, normal range of motion. Neuro: Awake and alert, GCS 15, oriented to person, place, time, and situation. Motor strength 5/5 in all extremities. Sensory grossly intact. 17:31 Head/face: Noted is erythema, that is mild, of the left cheek, chin and left jaw, swelling, that is mild, of the left cheek, chin and left jaw, 17:31 Skin: small pustules inferior chin with surrounding cellulitis. Vital Signs: 16:24 BP 150 / 79; Pulse 83; Resp 16; Temp 98.5(TE); Pulse Ox 100% on R/A; Weight 117.93 kg; hb Height 5 ft. 2 in. ; Pain 9/10; 17:05 BP 141 / 74; Pulse 76; Resp 16; Pulse Ox 99% on R/A; db 17:30 BP 151 / 90; Pulse 80; Resp 16; Pulse Ox 100% on R/A; db 18:30 BP 156 / 90; Pulse 79; Resp 18; Pulse Ox 100% on R/A; db 20:30 BP 161 / 104; Pulse 75; Resp 16; Pulse Ox 100% on R/A; jb4 16:24 Body Mass Index 47.55 (117.93 kg, 157.48 cm) hb 16:24 Pain Scale: Adult hb [place] Coma Score: 17:31 Eye Response: spontaneous(4). Motor Response: obeys commands(6). Verbal Response: sb4 oriented(5). Total: 15. MDM: 16:26 Patient medically screened. sb4 17:31 Differential diagnosis: cellulitis, abscess, rash, drug reaction. sb4 01/14 15:38 Data reviewed: vital signs, nurses notes, lab test result(s), radiologic studies, and sb4 as a result, I will admit patient. Consideration of Admission/Observation Patient was admitted/placed on observation. Management of patient was discussed with the following: Hospitalist: Dr. Meza. Counseling: I had a detailed discussion with the patient and/or guardian regarding the historical points, exam findings, and any diagnostic results supporting the discharge/admit diagnosis, lab results, radiology results, the need for further work-up and treatment in the hospital. 01/13 16:37 Order name: Blood Culture Adult (2) sb4 01/13 16:37 Order name: CBC with Diff; Complete Time: 17:55 sb4 01/13 16:37 Order name: CMP; Complete Time: 17:56 sb4 01/13 16:37 Order name: Lactate w/ 2H reflex if indic.; Complete Time: 17:56 sb4 01/13 16:37 Order name: Test, Urine; Complete Time: 17:42 sb4 01/13 20:10 Order name: Basic Metabolic Panel EDMS 01/13 20:10 Order name: Basic Metabolic Panel; Complete Time: 10:15 EDMS 01/13 20:10 Order name: CBC with Automated Diff EDMS 01/13 20:10 Order name: CBC with Automated Diff; Complete Time: 10:15 EDMS 01/13 16:37 Order name: Facial Bones W/ Con \T\ MPR CT; Complete Time: 10:15 sb4 01/13 16:37 Order name: IV Saline Lock - Large Bore; Complete Time: 17:32 sb4 01/13 16:37 Order name: Labs collected and sent; Complete Time: 17:32 sb4 Administered Medications: 01/13 17:25 Drug: NS 0.9% IV 1000 ml IV at 1 bolus Per protocol; 1000 mL bolus Route: IV; Rate: 1 db bolus; Site: right antecubital; 18:19 Drug: Potassium PO Effervescent Tablet 50 mEq PO once; dissolve in 4 ounces of water or db juice Route: PO; 19:05 Drug: Clindamycin IVPB 600 mg IVPB once over 30 mins; (mix in 50 mL) Route: IVPB; db Infused Over: 30 mins; Site: right antecubital; Disposition Summary: 01/13/23 18:31 Hospitalization Ordered Notes: Hospitalization Status: Inpatient Admission sb4 Provider: Evelio Meza sbTreva Location: Telemetry/[facility] (Inpatient) sb4 Condition: Stable sb4 Problem: new sb4 Symptoms: are unchanged sb4 Bed/Room Type: Standard sb4 Room Assignment: 210(01/13/23 20:32) jr12 Diagnosis - Cellulitis of face - failed outpatient(01/13/23 18:31) sb4 Forms: - Medication Reconciliation Form sb4 - SBAR form sb4 - Leadership Thank You Letter sb4 Signatures: Dispatcher [employer] EDHelen Overton RN RN hb Benton, Danielle, RN RN db Brown, Sophia, PA-C PA-C sb4 Iheonunekwu, Joelle Meek jr12 Corrections: (The following items were deleted from the chart) 18:31 18:31 Cellulitis of face sb4 sb4 20:32 18:31 sb4 jr12
[2023-01-13] MEDS ORDERED: CLINDAMYCIN 600MG/D5W 50 ML IV ONE (19:18)
--- NOTE | 2023-01-13 19:28 | RAD REPORT ---
EXAM DESCRIPTION: CT - CTFBWCON CLINICAL HISTORY: facial swelling COMPARISON: Head Brain Wo Cont dated 07/09/2022; Head Brain Wo Cont dated 06/20/2020; Soft Tissue Neck W/Contr dated 01/10/2023 TECHNIQUE: Axial 2 mm thick images of the face were obtained with sagittal and coronal reconstructio n images. All CT scans are performed using dose optimization technique as appropriate and may include automated exposure control or mA/KV adjustment according to patient size. FINDINGS: Stable to mildly improved mild fat stranding, and stable adjacent mildly prominent lymph n odes along the submental fossa right of midline. No appreciable fluid collections. No significant int erval change. No acute facial bone fracture is seen.The mandible is intact. The globes and orbital contents are grossly unremarkable.The paranasal sinuses and mastoids are clear . IMPRESSION: Stable to mildly improved subcutaneous fat stranding stomach right of midline along the submental fossa, likely of infectious/inflammatory nature. No appreciable fluid collections.
[2023-01-13] MEDS ORDERED: ACETAMINOPHEN 325 MG TABLET PO PRN (20:03)
--- NOTE | 2023-01-13 20:29 | P.HP ---
Certification for Inpatient Patient admitted to: Observation With expected LOS: <2 Midnights Patient will require the following post-hospital care: None Practitioner: I am a practitioner with admitting privileges, knowledge of patient current condition, hospital course, and medical plan of care. Services: Services provided to patient in accordance with Admission requirements found in Title 42 Section 412.3 of the Code of Federal Regulations Patient History Date of Service: 01/14/23 Reason for admission: Cellulitis of the face. History of Present Illness: 32-year-old female patient with medical history significant for morbid obesity was evaluated for episode pain in the left side of the face. She has a complaint of redness and on the chin on the left side of the face. She was started on outpatient antibiotics and therapy but she does not have significant improvement in pain and redness so she was brought to the emergency department for evaluation. CT of the face done which did not show abscess however there was inflammation on swelling depicting significant cellulitis. She was started on broad-spectrum antibiotic of clindamycin and was asked to be admitted for inpatient care. Allergies morphine Adverse Reaction (Verified 01/13/23 22:44) Nausea/Vomiting Home Medications: ALPRAZolam [Xanax] 1 mg PO BIDP PRN 05/10/15 Doxycycline Monohydrate 100 mg PO BID #14 tablet 08/26/19 Hydrocodone 10/APAP 325 [Crocker 10/325] 1 tab PO Q6H PRN #10 tab 08/26/19 Ibuprofen [Motrin] 400 mg PO TID #15 tab 08/26/19 levoFLOXacin [Levofloxacin] 500 mg PO DAILY #7 tablet 08/26/19 - Past Medical/Surgical History Diabetic: No -: Skin allergy -: Anxiety -: Depression -: Gastroesophageal reflux disease -: -: Lap adhesiolysis ovary - Family History Father -: Hypertension, Diabetes, Stroke, Cancer Notes: Spine Mother -: Heart disease, Cancer Notes: stomach - Social History Alcohol use: Yes CD- Drugs: No Caffeine use: Yes Review of Systems General: Malaise Eyes: Unremarkable ENT: As per HPI Respiratory: Unremarkable Cardiovascular: Unremarkable Gastrointestinal: Unremarkable Genitourinary: Unremarkable Musculoskeletal: Unremarkable Integumentary: Unremarkable Neurological: Unremarkable Physical Examination - Physical Exam General: Alert, Oriented x3 HEENT: Atraumatic, Other (redness in lower jaw/chin.) Neck: Supple Respiratory: Normal air movement Cardiovascular: Normal pulses, Regular rate/rhythm Gastrointestinal: Soft and benign Musculoskeletal: No swelling Neurological: Normal speech - Studies Laboratory Data (last 24 hrs) 01/13/23 01/13/23 17:25 17:25 WBC 11.60 H Hgb 11.7 L Hct 35.0 L Plt Count 377 Sodium 139 Potassium 3.0 L BUN 16 Creatinine 0.78 Glucose 125 H Total Bilirubin 0.4 AST 8 L ALT 22 Alkaline Phosphatase 75 Assessment and Plan - Plan Cellulitis of the face: Patient has redness and swelling in lower jaw. She also has pain. Continue empiric antibiotic therapy with clindamycin. She had failed outpt Augmentin therapy. Will continue to follow symptomatology. Imaging was not concerning for abscess formation. Continue pain control medication. Monitor morbid obesity: Will continue to encourage weight loss Prophylaxis: Lovenox for DVT prophylaxis CODE STATUS: Full code Disposition: We will treat cellulitis of the face and discharge, she is clinically stable. - Advance Directives Does patient have a Living Will: No Does patient have a Durable POA for Healthcare: No
[2023-01-13 21:44] VITALS: O2SAT 100
[2023-01-13 22:46] VITALS: BMI 45.8
[2023-01-13] MEDS ORDERED: MORPHINE 2 MG/ML SYR IV PRN (23:16)
[2023-01-13] MEDS: HYDROMORPHONE HCL 0.5 MG/0.5 ML INJ IV PRN (23:41)
[2023-01-13] MEDS: ONDANSETRON 4 MG/2 ML VIAL IV PRN (23:42)
[2023-01-14] MEDS ORDERED: CLINDAMYCIN 600MG/D5W 50 ML IV SCH (02:00)
[2023-01-14 03:29] LABS: Hematocrit 33.1 % (36.0-45.0); Lymphocytes % 32.4 % (15.3-44.8); MCV 81.3 fL (80-100); MPV 6.4 fL (7.6-11.3); Platelets 356 thou/uL (152-406); RBC Red Blood Cell Count 4.07 M/uL (3.86-4.86)
[2023-01-14 03:56] LABS: Potassium 3.9 mEq/L (3.5-5.1)
[2023-01-14] MEDS ORDERED: CLINDAMYCIN 600MG/D5W 50 ML IV ONE (05:05)
[2023-01-14] MEDS: CLINDAMYCIN 600MG/D5W 50 ML IV SCH ×4 (05:19→23:48)
[2023-01-14] MEDS ORDERED: CLINDAMYCIN INJ 600 MG in NA CHLORIDE 0.9% 50 ML IV SCH (06:00)
[2023-01-14] MEDS ORDERED: HYDROCODONE/APAP 5/325 MG TAB PO PRN (06:35)
--- NOTE | 2023-01-14 07:42 | P.PN ---
Date of Service: 01/14/23 Subjective: Recently seen here in ER 01/10 and was prescribed clindamycin, dc'd home for about a day, went back to [facility] and prescribed augmentin. Did not fill prescription for clindamycin but reports had been taking the augmentin from [facility] as prescribed pain / swelling / tenderness worsened after 2nd discharge so she came back here. Feels nauseous after eating today Reports 2 similar previous episodes of facial cellulitis in 2019 and 2020 afebrile ROS: 10 point ROS as noted above, otherwise negative Physical Exam: GEN: Alert, oriented, NAD HEENT: Normal conjunctiva, sclera anicteric CV: Regular rate and rhythm, no edema Pulm: Nonlabored respirations on room air, clear bilaterally ABD: Soft, nontender, nondistended Integumentary Swelling, tenderness, erythema of left cheek/jaw Neuro: Normal speech, normal affect, paresthesia of left face vitals reviewed Problem List: Recurrent Cellulitis of the face, with neuralgia Depression / anxiety h/o Polycystic ovary syndrome morbid obesity She was seen here a few days ago and prescribed clindamycin. Few days later she was seen at [facility] and prescribed Augmentin. Did not fill prescription for clindamycin but reports she had been taking the augmentin from [facility] as prescribed Started to progressively feel weaker with worsening pain, swelling, tenderness of left cheek/jaw Failed outpatient therapy on augmetin. Reports compliance with medication Reports she has had to be hospitalized twice for facial cellulitis in the past (in 2019 and 2020) CT soft tissue neck (01/10): Stable mild inflammatory changes along the submental fossa most pronounced right of midline with stable mildly prominent level [address] facial bone (01/13): Stable to mildly improved subcutaneous fat stranding stomach right of midline along the submental fossa, likely of infectious/inflammatory nature. No appreciable fluid collections. ENT consulted 01/14 add prednisone, zyrtec possible allergic component Blood cx (01/13): pending Continue empiric IV clindamycin (01/13-) Afebrile, leukocytosis improving PRN analgesics/antiemetics confirm home medications, restart appropriate VTE: Lovenox Code: Full Dispo: Home
[2023-01-14] MEDS: HYDROMORPHONE HCL 0.5 MG/0.5 ML INJ IV PRN ×3 (09:31→22:45)
[2023-01-14] MEDS: ENOXAPARIN 40 MG/0.4 ML SQ SCH (09:31)
[2023-01-14] MEDS: ONDANSETRON 4 MG/2 ML VIAL IV PRN ×2 (09:36→20:43)
[2023-01-14] MEDS ORDERED: PANTOPRAZOLE 40MG TABLET PO ONE (13:20)
[2023-01-14] MEDS: CETIRIZINE HCL 5 MG TABLET PO SCH (13:37)
[2023-01-14] MEDS: predniSONE 20 MG TAB PO SCH (16:46)
--- NOTE | 2023-01-14 22:41 | CON ---
Date of Consultation: 01/14/2023 Chief Complaint: Left facial pain and submental neck swelling. History Of Present Illness: Patient is a 32-year-old female with a history of recurrent facial and n torres swelling who presented to the emergency room on January 13, 2023, and subsequently admitted for c ellulitis of the face and neck, but no evidence of abscess. She was started on clindamycin as she lovell d failed outpatient Augmentin therapy. She showed me a picture from her mobile phone, which demonstr ated submental neck swelling extending to the left jaw and face, but I could not really appreciate th e level of severity as the patient is morbidly obese. Compared to onset, patient states that the swe lling and pain have improved at least 50%. She denies any dental caries or oral infection. She sindhu es postnasal drainage, rhinorrhea, sore throat, but she does have left facial pain extending to the l eft ear. She denies any rash, outbreaks or hives, or itching. No other ENT complaints today. Past Medical History: History of skin allergy, anxiety, depression, gastroesophageal reflux disease. Past Surgical History: section and removal of adhesions from the ovary. Family History: Father positive for hypertension, diabetes, stroke, and cancer. Mother positive for heart disease and cancer. Social History: Occasional alcohol use. No illicit drugs or tobacco and positive for caffeine. Allergies: NO KNOWN DRUG ALLERGIES, BUT SHE HAS POSITIVE NAUSEA AND VOMITING WITH MORPHINE USE. Home Medications: No known home medications. Patient was recently on Augmentin, but the facial and neck swelling did not improve. Review of Systems: General: Positive for fatigue. Eyes: Negative for drainage, double or blurry vision. Ears: Positive for left ear otalgia. Nose: Negative for rhinorrhea or postnasal drip or congestion. Throat: Negative for pain or difficulty swallowing. Neck: Positive for swelling extending to left jaw and face. Face: Moderate pain to the left cheek extending to the scalp. Physical Examination: Vital Signs: Stable. She is awake, alert, and oriented to person, place, and time. Head: Atraumatic, normocephalic. Eyes: PERRLA/EOMI. Ears: External auditory canals patent. Tympanic membranes are intact. No evidence of mucoid middle ear effusion or auricular vesicles or blisters. Nose: Midline septum. Moist intranasal mucosa. No rhinorrhea or exudate. Throat: Midline uvula. No evidence of or pharyngeal swelling or erythema. Neck: Supple. Trachea midline. Minimal swelling in my opinion to the submental area. She does hav e several acne, pustules noted at the mentum. She has moderate tenderness to percussion in the trige kristen area of the left facial skin. Diagnostic Data: CT scan of the neck and facial bones were reviewed and I agree with the findings of fat stranding in the submental area of the neck with some enlarged lymph nodes, but not appreciably enlarged that are suspicious for malignancy. There is no evidence of parotid gland or submandibular gland stones to suggest obstruction of the gland and swelling. No evidence of sinus or mastoid effus ion. Laboratory Data: Reviewed. It appears that the white blood cell count is declining since initial la bs were taken. Diagnoses: Neck and left facial swelling. Possible etiologies are infectious, but could also be IgE food allergies or drug allergy. Recommendations: 1.I recommend that she start Zyrtec 10 mg daily and when she is discharged home, to the transition f rom IV to oral steroids. May continue current antibiotics for 7-10 days. 2.Recommend we set up for food and inhalant IgE prick testing. Thank you Dr. Lorenzana for this most interesting consultation. RUBY/SIMONE Voice ID: [id number] Report ID: [id number]
[2023-01-15] MEDS: CLINDAMYCIN 600MG/D5W 50 ML IV SCH ×4 (05:23→23:33)
[2023-01-15 07:17] LABS: Absolute Lymphocytes (CBC) 1.9 K/uL (0.7-4.9); Hematocrit 36.2 % (36.0-45.0); Lymphocytes % 15.3 % (15.3-44.8); MCV 81.2 fL (80-100); MPV 6.3 fL (7.6-11.3); Platelets 411 thou/uL (152-406); RBC Red Blood Cell Count 4.46 M/uL (3.86-4.86)
[2023-01-15 07:45] LABS: C-Reactive Protein 9.98 mg/L (<3.00); Potassium 4.2 mEq/L (3.5-5.1)
--- NOTE | 2023-01-15 07:52 | P.PN ---
Date of Service: 01/15/23 Subjective: Feels ~same as yesterday; some slight increase in tenderness under chin / chewing doesn't feel more swollen face appears slightly less swollen on exam Feels more nauseous today compared to yesterday. Worsened after eating Body felt hot yesterday, +sweating throughout the day afebrile ROS: 10 point ROS as noted above, otherwise negative Physical Exam: GEN: Alert, oriented, uncomfortable appearing HEENT: Normal conjunctiva, sclera anicteric, no lesions CV: Regular rate and rhythm, no edema Pulm: Nonlabored respirations on room air, clear bilaterally ABD: Soft, nontender, nondistended Integumentary Swelling, tenderness of submandibular region, mild swelling and erythema of left cheek/jaw; tenderness to palpation along left face Neuro: Normal speech, normal affect, paresthesia of left face vitals reviewed Problem List: Recurrent Cellulitis of the face /submandibular region, with neuralgia Depression / anxiety GERD h/o Polycystic ovary syndrome morbid obesity She was seen here a few days ago and prescribed clindamycin. She had not picked up this prescription yet, and the next morning went to [facility], prescribed augment Did not fill prescription for clindamycin but reports she had been taking the augmentin from [facility] as prescribed Started to progressively feel weaker with worsening pain, swelling, tenderness of left cheek/jaw Failed outpatient therapy on augmetin. Reports compliance with medication Reports she has had to be hospitalized twice for submanibular cellulitis in the past (in 2019 and 2020) CT soft tissue neck (01/10): Stable mild inflammatory changes along the submental fossa most pronounced right of midline with stable mildly prominent level [address] facial bone (01/13): Stable to mildly improved subcutaneous fat stranding stomach right of midline along the submental fossa, likely of infectious/inflammatory nature. No appreciable fluid collections. ENT consulted 01/14 continue prednisone, zyrtec - possible allergic component recommending food and inhalant IgE prick testing as outpatient no drainable abscess Blood cx (01/13): pending Continue empiric IV clindamycin (01/13-) Afebrile, +leukocytosis - likely reactive to steroids vs infectious continue abx for 7-10 days per ENT PRN analgesics/antiemetics confirm home medications, restart appropriate VTE: Lovenox Code: Full Dispo: Home, ~1-2 days pending tolerable pain, nausea improvement
[2023-01-15] MEDS: CETIRIZINE HCL 5 MG TABLET PO SCH (08:30)
[2023-01-15] MEDS: ENOXAPARIN 40 MG/0.4 ML SQ SCH (08:31)
[2023-01-15] MEDS: predniSONE 20 MG TAB PO SCH ×2 (08:31→17:02)
[2023-01-15] MEDS: HYDROMORPHONE HCL 0.5 MG/0.5 ML INJ IV PRN ×2 (11:33→20:38)
[2023-01-15] MEDS: ONDANSETRON 4 MG/2 ML VIAL IV PRN ×2 (11:37→20:40)
[2023-01-16 03:27] LABS: Absolute Lymphocytes (CBC) 1.6 K/uL (0.7-4.9); Hematocrit 34.8 % (36.0-45.0); Lymphocytes % 11.7 % (15.3-44.8); MCV 81.2 fL (80-100); MPV 6.8 fL (7.6-11.3); Platelets 400 thou/uL (152-406); RBC Red Blood Cell Count 4.29 M/uL (3.86-4.86)
[2023-01-16] MEDS: CLINDAMYCIN 600MG/D5W 50 ML IV SCH ×3 (05:53→17:53)
[2023-01-16] MEDS: HYDROMORPHONE HCL 0.5 MG/0.5 ML INJ IV PRN ×3 (05:58→15:53)
[2023-01-16] MEDS: CETIRIZINE HCL 5 MG TABLET PO SCH (09:04)
[2023-01-16] MEDS: predniSONE 20 MG TAB PO SCH ×2 (09:05→17:47)
[2023-01-16] MEDS: ENOXAPARIN 40 MG/0.4 ML SQ SCH (09:05)
[2023-01-16] MEDS: ONDANSETRON 4 MG/2 ML VIAL IV PRN (09:08)
--- NOTE | 2023-01-16 12:11 | CON ---
History Of Present Illness: This is a 32-year-old female coming in with submental cellulitis. Does not recall any insect bites or trauma. As per patient, this is her third time getting this infection . The patient denies any high fevers. Does complain of nausea, no vomiting. Since she has been on antibiotic, feels that she is having some bad taste in her mouth. The patient also had some difficul ty in swallowing. A CT scan performed at that time of admission showed that she has stable to mildly improved subcutaneous fat stranding, right of midline along the submental fossa, likely of infectiou s and inflammatory nature. No appreciation of fluid collection was noted. The patient was started o n clindamycin 600 mg IV q.6 hours. Still has some discomfort to her chin and neck region with some d ifficulty in swallowing for which reason she is having soft food. Past Medical History: History of cellulitis to the facial area x2. Social History: Vape. Tobacco use in the past. Occasional alcohol use. Family History: Noncontributory except mom side had history of stomach cancer, cardiac problems. Allergies: MORPHINE. Review of Systems: 10-point review was performed. Physical Examination: General: This is a 32-year-old female, lying in bed, not in any acute cardiopulmonary distress. Vital Signs: Temperature 97, pulse 62, respirations 16, blood pressure 134/80. HEENT: Tenderness to the neck region, otherwise unremarkable. Neck: Supple. Lungs: Basal crackles. Heart: S1, S2. Regular. Abdomen: Soft, nontender. Bowel sounds present. Extremities: No edema. Laboratory Data: Shows WBC 13.6, hemoglobin 11.7, platelets are 400. Chemistry shows BUN of 12, cre atinine 0.7. Liver enzymes within normal limit. Blood cultures negative for 24 hours. Assessment And Plan: Facial cellulitis. Consider ENT evaluation and dental evaluation. Consider sw itching patient to Zosyn 3.375 g IV q.8 hours and on discharge patient to be on Augmentin 500 mg p.o. q.8 hours for 2 weeks total. We will follow the patient as needed. Thank you Dr. Muñiz for consult. NF/MODL Voice ID: [id number] Report ID: [id number]
[2023-01-16 16:44] VITALS: BP 160/85; TEMP 97.9
--- NOTE | 2023-01-16 17:00 | P.DS ---
Admission Date: 01/15/23 Discharge Date: 01/16/23 Disposition: ROUTINE DISCHARGE Discharge Condition: FAIR Reason for Admission: Cellulitis of the face. Brief History of Present Illness: 32-year-old female patient with medical history significant for morbid obesity was evaluated for episode pain in the left side of the face. She reported redness on the chin and the left side of the face. She was started on outpatient antibiotics and therapy but she did not see any significant improvement in pain and redness so she was brought to the emergency department for evaluation. CT of the face done which did not show abscess however there was inflammation on swelling depicting significant cellulitis. She was started on broad-spectrum antibiotic of clindamycin and admitted for further management. 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 She did not picked up the prescription, and the next morning went to [facility], prescribed augment She reported taking Augmentin as prescribed. Started to progressively feel weaker with worsening pain, swelling, tenderness of left cheek/jaw Failed outpatient therapy on augmetin. Reports compliance with medication Reports she has had to be hospitalized twice for submanibular cellulitis in the past (in 2019 and 2020) CT soft tissue neck (01/10): Stable mild inflammatory changes along the submental fossa most pronounced right of midline with stable mildly prominent level [address] facial bone (01/13): Stable to mildly improved subcutaneous fat stranding stomach right of midline along the submental fossa, likely of infe ctious/inflammatory nature. No appreciable fluid collections. ENT consulted 01/[address] Bolanos who recommended prednisone, zyrtec for possible allergic component recommending food and inhalant IgE prick testing as outpatient no drainable abscess Blood cx (01/13): No growth. CRP only mildly elevated. Redness and swelling resolved. Patient was afebrile, had only mild leukocytosis. Seen in consultation by infectious disease. continue abx for 7-10 days per ENT Patient discharged to continue oral antibiotic and steroids. She voiced understanding she is supposed to follow-up with Dr. Bolanos as outpatient Vital Signs/Physical Exam: Temp Pulse Resp BP Pulse Ox 97.9 F 78 16 160/85 H 95 01/16/23 16:00 01/16/23 16:00 01/16/23 16:00 01/16/23 16:00 01/16/23 16:00 General: Alert, In no apparent distress, Oriented x3 HEENT: Atraumatic, Normocephalic, Mucous membr. moist/pink, Other (Pharynx is clear, no exudate or swelling or ulcer.), Scleral icterus Neck: JVD not distended Respiratory: Clear to auscultation bilaterally, Normal air movement Cardiovascular: No edema, Regular rate/rhythm, Normal S1 S2 Gastrointestinal: Normal bowel sounds, Soft and benign, Non-distended Musculoskeletal: No swelling Integumentary: No rashes, No cyanosis Neurological: Normal strength at 5/5 x4 extr Laboratory Data at Discharge: WBC 13.60 thou/uL (4.3-10.9) H 01/16/23 01:59 Hgb 11.7 g/dL (12.0-15.0) L 01/16/23 01:59 Hct 34.8 % (36.0-45.0) L 01/16/23 01:59 Plt Count 400 thou/uL (152-406) 01/16/23 01:59 Sodium 136 mEq/L (136-145) 01/15/23 06:52 Potassium 4.2 mEq/L (3.5-5.1) 01/15/23 06:52 BUN 12 mg/dL (7-18) 01/15/23 06:52 Creatinine 0.79 mg/dL (0.55-1.02) 01/15/23 06:52 Glucose 103 mg/dL (74-106) 01/15/23 06:52 Total Bilirubin 0.4 mg/dL (0.2-1.0) 01/13/23 17:25 AST 8 U/L (15-37) L 01/13/23 17:25 ALT 22 U/L (13-56) 01/13/23 17:25 Alkaline Phosphatase 75 U/L (45-117) 01/13/23 17:25 Home Medications: ALPRAZolam [Xanax*] 1 mg PO BIDP PRN 05/10/15 Hydrocodone 10/APAP 325 [Drewsey 10/325*] 1 tab PO Q6H PRN #10 tab 08/26/19 Ibuprofen [Motrin*] 400 mg PO TID #15 tab 08/26/19 Amox/Clavulanate [Augmentin 875-125 Tab] 1 each PO BID #14 tab 01/16/23 Cetirizine HCl [Zyrtec*] 10 mg PO DAILY #14 tab 01/16/23 Hydrocodone 5/APAP 325 [Drewsey 5/325*] 1 tab PO Q6H PRN #15 tab 01/16/23 clindamycin HCL [Clindamycin HCl] 300 mg PO Q6H #20 cap 01/16/23 predniSONE [Prednisone*] 20 mg PO DAILY #7 tab 01/16/23 New Medications: Amox/Clavulanate [Augmentin 875-125 Tab] 1 each PO BID #14 tab clindamycin HCL [Clindamycin HCl] 300 mg PO Q6H #20 cap Hydrocodone 5/APAP 325 [Drewsey 5/325*] 1 tab PO Q6H PRN #15 tab PRN Reason: Pain Scale 5-7 (Moderate) predniSONE [Prednisone*] 20 mg PO DAILY #7 tab Cetirizine HCl [Zyrtec*] 10 mg PO DAILY #14 tab Physician Discharge Instructions: Patient presented with worsening left cheek/jaw swelling/tenderness/erythema. Failed outpatient therapy on augmentin. She was seen 01/10 here in the ER, discharged with clindamycin to which she reports not filling the prescription for. Home for about a day or 2. Few days later she was seen at [facility] and pr escribed Augmentin to which she has been compliant with. CT of facial bone 01/13 noted stable to mildly improved subcutaneous fat stranding stomach right of midline along the submental fossa, likely of infectious/inflammatory nature. No appreciable fluid collections. No findings to suggest abscess formation. Patient was found to have cellulitis of the face. ENT was consulted. She was started on empiric clindamycin and had some improvement of her symptoms. Patient was feeling better, facial swelling/pain improved, afebrile without leukocytosis, and was deemed stable for discharge home. Medications: Follow up: PCP 3-5 days Diet: Regular Activity: Ad tanmay Followup: Jennifer Bolanos DO [ACTIVE - CAN ADMIT] - (Within 2 weeks) Nancy Valdes [employer] [Primary Care Provider] - Time spent managing pt's care (in minutes): 36
== END 2023-01-16 18:31 | disposition home or self-care (01) | DRG 603 ==
LOC: ER 16:13 → 2ND 20:03 → INTOOBSV 20:03 → OBSVTOIN 20:03
PROVIDERS: ADMIT Internal Medicine Nephrology; ATTEND Internal Medicine
DX: L03.211 Cellulitis of face (principal); Z68.42 Body mass index [BMI] 45.0-49.9, adult; E66.01 Morbid (severe) obesity due to excess calories; E28.2 Polycystic ovarian syndrome; M79.2 Neuralgia and neuritis, unspecified; F32.A Depression, unspecified; F41.9 Anxiety disorder, unspecified; K21.9 Gastro-esophageal reflux disease without esophagitis; Z88.5 Allergy status to narcotic agent; Z79.52 Long term (current) use of systemic steroids; Z79.899 Other long term (current) drug therapy
CPT/HCPCS: 36415; 70487; 76377; 80048; 80053; 81025; 83605; 85025; 86140; 87040; 96374; 99285; G0378; J1170; J1650; J2405; J7030; J7512; Q9967

== ENCOUNTER → 2023-04-02 | Emergency (ER) | payer OTHER, SELFPAY ==
[~2023-04-02] MED LIST: GABAPENTIN 300 MG CAP ONE; KETOROLAC 30 MG/ML INJ ONE; dexAMETHasone 10 MG/ML VIAL ONE
--- OUTSIDE RECORDS SUMMARY | 2023-04-02 13:38 | XMS REPORT | Continuity of Care Document ---
Author Name Unknown Address [address] [facility] [address] [place] [address] [facility] Address [address] [facility] [address] [place] [address] Care Team Providers Care Permit Technician Name Role Phone CARMELINA HANLEY Primary Care Physician Unavailab SHERLEY Gabriel Attending Clinician Unavailable Sherley Diez MD Attending Clinician [phone] JACQUIE NORIEGA Attending Clinician Unavail able GC_GCBZW_Lalita_S Attending Clinician UnavailJOSÉ Gonsalez Attending Clinician Unavailable Doctor Unassigned, [place] Attending Clinician U navailable Jacquie Pederson Attending Clinician + Geraldine Galvan MD Attending Clinician [phone] Radiology Attending Clinician Unavailable RADIOLOGY Attending Clinician Unavailable GERALDINE GALVAN Attending Clinician Unavailable Prisca Dinh RN Attending Clinician [phone] Chavo Jose MD Attending Clinician [phone] Rojelio De La Rosa MD Attending Clinician [phone] SHERLEY DIEZ Admitting Clinician Unavailable FERNY_GCBZW_Lalita_S Admitting Clinician UnavailRojelio Brush MD Admitting Clinician [phone] Payers Payer Name Policy Type Policy Number Effective Date Expirati on Date Source [facility] [id number] 2021 00:00:00 Problems Condition Name Condition Details Condition Category Status Onset Date Resolution Date Last Treatment Date Treating Clinician Comments Source Elevated blood pressure reading without diagnosis of hypertensi on Elevated blood pressure reading without diagnosis of hypertensi on Disease Active 3-29 00:00: 00 [facility] Cellulitis of submental space Cellulitis of submental space Disease Active 08-25 00:00: 00 [facility] Failure of outpatient treatment Failure of outpatient treatment Disease Active 08-24 00:00: 00 [facility] Missed menses Missed menses Disease Active 10-21 00:00: 00 [facility] History of anxiety History of anxiety Disease Active 10-21 00:00: 00 [facility] Tobacco use disorder Tobacco use disorder Disease [facility] 10-21 00:00: 00 [facility] General counseling and advice for contracept jamison management General counseling and advice for contracept jamison management Disease [facility] 11-01 00:00: 00 Overview: Formattin g of this note might be different from the original. 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 Generalize d anxiety disorder Generalize d anxiety disorder Disease [facility] 11-01 00:00: 00 [facility] Morbid obesity Morbid obesity Disease [facility] 11-01 00:00: 00 [facility] Allergies, Adverse Reactions, Alerts Allergy Name Allergy Type Status Severity Reaction(s) Onset Date Inactive Date Treating Clinician Comments Source MORPHINE DRUG INGREDI Active Low Anxiety 08-24 00:00: 00 [facility] Morphine Propensi ty to adverse reaction s Active Nausea and/or Vomiting 08-24 00:00: 00 [facility] Social History Social Habit Start Date Stop Date Quantity Comments Source Sexual orientation U [facility] History of Social function 2023-01-11 00:00:00 2023-01-11 00:00:00 [facility] Alcohol intake 2023-01-11 00:00:00 2023-01-11 00:00:00 .24 /d [facility] Exposure to SARS-CoV-2 (event) 2021-04-03 00:00:00 2021-05-03 09:51:00 Not sure [facility] Cigarettes smoked current (pack per day) - Reported 2021-05-03 00:00:00 2021-05-03 00:00:00 [facility] Cigarette pack-years 2021-05-03 00:00:00 2021-05-03 00:00:00 [facility] Tobacco use and exposure 2021-05-03 00:00:00 2021-05-03 00:00:00 Smokeless tobacco non-user [facility] Education - What is the highest level of school you have completed or the highest degree you have received? 2020-08-24 00:00:00 2020-08-24 00:00:00 Some college, no degree [facility] Tobacco Comment 2020-08-24 00:00:00 2020-08-24 00:00:00 quit last week [facility] History of tobacco use 2012-02-02 00:00:00 2012-02-02 00:00:00 Cigarette Smoker [facility] Sex Assigned At 1990 00:00:00 1990 00:00:00 [facility] Smoking Status Start Date Stop Date Source Smokes tobacco daily 2021-05-03 00:00:00 [facility] Medications Ordered Medication Name Filled Medication Name Start Date Stop Date Current Medication? Ordering Clinician Indication Dosage Frequency Signature (SIG) Comments Components Source acetaminoph en (TYLENOL) tablet 975 mg 2022-02 21:00: 00 01-11 19:56 :00 No 975mg 975 mg, Oral, ONCE NOW, 1 dose, On Sun01/11/23 at 1500, [facility] ondansetron (ZOFRAN (PF)) injection 4 mg 2022-02 20:00: 00 01-11 19:56 :00 No 4mg 4 mg, Slow IV Push, ONCE, 1 dose, On Sun01/11/23 at 1400, [facility] iopamidol (ISOVUE 370-500 mL) injection 80 mL 2022-02 20:00: 00 01-11 20:00 :00 No [id number] 80mL 80 mL, Intravenou s, ONCE, 1 dose, On Glory 01/11/23 at 1400, Routine [facility] ketorolac (TORADOL) injection 30 mg 2022-02 19:15: 00 01-11 18:46 :00 No 30mg 30 mg, Slow IV Push, ONCE NOW, 1 dose, On Glory 01/11/23 at 1315, MAKAYLA [facility] ampicillin- sulbactam (UNASYN) 3 g in NaCl 0.9% (NS) 100 mL MINI-BAG 2022-02 18:30: 00 01-11 19:52 :00 No 3g 3 g, IV Piggyback, ONCE, 1 dose, On Glory 01/11/23 at 1230, Administer over 30 Minutes, 100 mL
Reas on for Anti-Infec tive: Documented Infection< br>Documen tali Infection Site: HEENT
D uration of Therapy: Other (see Comments) [facility] dexamethaso ne sod phos PF injection 10 mg 2022-02 18:30: 00 01-11 18:47 :00 No 10mg 10 mg, Slow IV Push, ONCE, 1 dose, On Glory 01/11/23 at 1230, [address] [facility] diclofenac 75 mg EC tablet 2022-02 00:00: 00 Yes [id number] 75mg Take 1 tablet by mouth in the morning and 1 tablet in the evening. Take with meals. [facility] ondansetron 4 mg disintegrat ing tablet 2022-02 00:00: 00 Yes [id number] 4mg Take 1 tablet by mouth every 8 (eight) hours as needed for Nausea and Vomiting (N/V). [facility] acetaminoph en (TYLENOL ARTHRITIS PAIN) 650 mg CR tablet 2022-02 00:00: 00 Yes [id number] 650mg Take 1 tablet by mouth every 8 (eight) hours as needed for Pain. [facility] amoxicillin -clavulanat e 875-125 mg per tablet 2022-02 2-07 00:00: 00 01-22 05:59 :00 Yes [id number] 1{tbl} Take 1 tablet by mouth every 12 (twelve) hours for [address] [facility] dicyclomine 20 mg tablet 09-25 00:00: 00 05-03 00:00 :00 No [id number] 20mg Take 1 tablet by mouth every 6 (six) hours as needed for Abdominal pain. [facility] ondansetron (ZOFRAN) 4 mg tablet 09-25 00:00: 00 05-03 00:00 :00 No [id number] 4mg Take 1 tablet by mouth every 8 (eight) hours as needed for Nausea and Vomiting (N/V). [facility] omeprazole 20 mg capsule 08-27 00:00: 00 05-03 00:00 :00 No [id number] 20mg Take 1 capsule by mouth daily. [facility] sulfamethox azole-trime thoprim 800-160 mg per tablet 08-26 00:00: 00 05-03 00:00 :00 No [id number] 1{tbl} Take 1 tablet by mouth 2 (two) times daily. [facility] HYDROcodone -acetaminop hen 5-325 mg tablet 08-26 00:00: 00 05-03 00:00 :00 No [id number] 1{tbl} Take 1 tablet by mouth every 6 (six) hours as needed for Pain (scale 4-6) or Pain (scale 7-10). Indication s: acute pain [facility] Immunizations Ordered Immunization Name Filled Immunization Name Date Status Comments Source TDAP 2012-09-25 00:00:00 Completed [facility] Meningococcal Vaccine 2011-01-25 00:00:00 Completed [facility] Rubella 2010-04-01 00:00:00 Completed [facility] Td 2006-02-05 00:00:00 Completed [facility] Varicella (varivax)(chicken pox) 1996-02-06 00:00:00 Completed [facility] Meningococcal Vaccine Unknown Completed [facility] Rubella Unknown Completed [facility] TD, NOS Unknown Completed [facility] Varicella (varivax)(chicken pox) Unknown Completed [facility] TDAP Unknown Completed [facility] Vital Signs Vital Name Observation Time Observation Value Comments S ource Systolic blood pressure 2023-01-11 20:00:00 144 mm[Hg] [facility] Diastolic blood pressure 2023-01-11 20:00:00 100 mm[Hg] [facility] Heart rate 2023-01-11 20:00:00 74 /min Unive [facility] Respiratory rate 2023-01-11 20:00:00 16 /min [facility] Oxygen saturation in Arterial blood by Pulse oximetry 2023-01-11 20:00:00 97 /min [facility] Body temperature 2023-01-11 18:04:00 37.11 Ann-Marie [facility] Body height 2023-01-11 18:04:00 157.5 cm [facility] Body weight 2023-01-11 18:04:00 117.935 kg [facility] BMI 2023-01-11 18:04:00 47.55 kg/m2 [facility] Systolic blood pressure 2021-05-03 14:52:00 144 mm[Hg] [facility] Diastolic blood pressure 2021-05-03 14:52:00 98 mm[Hg] [facility] Heart rate 2021-05-03 14:52:00 75 [facility] 2021-05-03 14:51:00 36.22 Ann-Marie [facility] Respiratory rate 2021-05-03 14:51:00 20 /min [facility] Body height 2021-05-03 14:51:00 157.5 cm [facility] Body weight 2021-05-03 14:51:00 116.376 kg [facility] BMI 2021-05-03 14:51:00 46.93 kg/m2 [facility] Systolic blood pressure 2021-05-03 14:52:00 144 mm[Hg] [facility] Diastolic blood pressure 2021-05-03 14:52:00 98 mm[Hg] [facility] Heart rate 2021-05-03 14:52:00 75 /[facility] Body temperature 2021-05-03 14:51:00 36.22 Ann-Marie [facility] Respiratory rate 2021-05-03 14:51:00 20 /min [facility] Body height 2021-05-03 14:51:00 157.5 cm [facility] Body weight 2021-05-03 14:51:00 116.376 kg [facility] BMI 2021-05-03 14:51:00 46.93 kg/m2 [facility] Procedures Procedure Date / Time Performed Performing Clinicia n Source CT SOFT TISSUE NECK W CONTRAST 2023-01-11 19:00:00 Sherley Diez [facility] COMP. METABOLIC PANEL ([id number]) 2023-01-11 18:45:00 Sherley Diez [facility] CBC WITH DIFF 2023-01-11 18:45:00 Sherley Diez [facility] POCT TEST 2023-01-11 18:39:00 Sravan Diez [facility] CONSENT/REFUSAL FOR DIAGNOSIS AND TREATMENT 2023-01-11 18:00:13 Doctor Unassigned, [place] [facility] LAB ONLY PAP SMEAR-LIQUID BASED 2021-05-03 16:08:00 Jacquie Noriega [facility] PAP SMEAR-LIQUID BASED-CP 2021-05-03 16:08:00 Jacquie Noriega [facility] Encounters Start Date/Time End Date/Time Encounter Type Admission Type Attending Clinicians Care Facility Care Department Encounter ID Source 2020-12-06 17:05:[address] [facility] [id number] [facility] 2023-01-11 12:05:00 2023-01-11 14:34:00 Emergency X SHERLEY DIEZ [facility] ERT [id number] [facility] 2023-01-11 12:05:00 2023-01-11 14:34:00 Emergency Sherley Diez [facility] 1.840.114 350.1.13.10 4.2.7.2.[id number] [facility] 2023-01-01 09:15:00 2023-01-01 09:15:00 Outpatient JACQUIE WU [facility] [id number] [facility] 2022-12-02 00:00:00 2022-12-02 00:00:00 Outpatient GC_GCBZW_Ka diyala_S PRIV [facility] [id number] [facility] 2021-12-03 12:38:34 2021-12-03 12:38:34 Outpatient [facility] [id number] [place] 2021-07-05 13:00:00 2021-07-05 13:00:00 Outpatient JOSÉ PURVIS [facility] [id number] [facility] 2021-06-03 13:30:00 2021-06-03 13:30:00 Outpatient JOSÉ PURVIS [facility] [id number] [facility] 2021-05-23 00:00:00 2021-05-23 00:00:00 Orders Only Doctor Unassigned, [place] [facility] .840.114 350.1.13.10 4.2.7.2.[id number] 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 1.840.114 350.1.13.10 4.2.7.2.[id number] [facility] 2021-05-03 09:30:00 2021-05-03 10:51:04 Outpatient JACQUIE WU [facility] [id number] 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 2021-05-03 09:30:00 2021-05-03 10:51:04 Outpatient R JACQUIE NORIEGA [facility] [id number] [facility] 2021-05-03 09:30:00 2021-05-03 10:51:04 Outpatient R JACQUIE NORIEGA [facility] [id number] 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 2021-05-03 00:00:00 2021-05-03 00:00:00 Orders Only Doctor Unassigned, [place] [facility] 1..114 350.1.13.10 4.2.7.2.[id number] 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 2020-09-24 23:09:00 2020-09-25 04:02:00 Emergency Geraldine Galvan [facility] 1.2.840.114 350.1.13.10 4.2.7.2.[id number] [facility] 2020-09-24 23:09:00 2020-09-25 04:02:00 Emergency Geraldine Galvan [facility] 1.2.840.114 350.1.13.10 4.2.7.2.686 [id number] 2020-09-02 15:30:00 2020-09-02 23:59:00 Hospital Encounter Radiology [facility] 1.2.840.114 350.1.13.10 4.2.7.2.[id number] [facility] 2020-09-02 15:30:00 2020-09-02 23:59:00 Hospital Encounter Radiology [facility] 1.2.840.114 350.1.13.10 4.2.7.2.686 [id number] 2020-09-02 00:00:00 2020-09-02 00:00:00 Outpatient R RADIOLOGY [facility] [id number] [facility] 2020-08-27 21:50:00 2020-08-27 23:10:00 Emergency Geraldine Galvan [facility] 1.2.840.114 350.1.13.10 4.2.7.2.[id number] [facility] 2020-08-27 21:50:00 2020-08-27 23:10:00 Emergency Geraldine Galvan [facility] 1.2.840.114 350.1.13.10 4.2.7.2.686 [id number] 2020-08-27 21:50:00 2020-08-27 21:50:00 Emergency X GERALDINE GALVAN [facility] ERT [id number] [facility] 2020-08-27 00:00:00 2020-08-27 00:00:00 Transition of Care Prisca Dinh 1.2.840.114 350.1.13.10 4.2.7.2.[id number] [facility] 2020-08-27 00:00:00 2020-08-27 00:00:00 Transition of Care Prisca Dinh 1.2.840.114 350.1.13.10 4.2.7.2.686 [id number] 2020-08-24 14:12:00 2020-08-26 13:37:00 Hospital Encounter Chavo Jose [facility] 1.2.840.114 350.1.13.10 4.2.7.2.686 [id number] 2020-08-24 14:12:00 2020-08-26 13:37:00 Hospital Encounter Chavo Jose [facility] 1.2.840.114 350.1.13.10 4.2.7.2.[id number] [facility] 2020-08-24 13:52:00 2020-08-24 13:52:00 Emergency X [facility] ERT [id number] [facility] 2020-08-24 00:00:00 2020-08-24 00:00:00 Orders Only Doctor Unassigned, [place] [facility] 1.2.840.114 350.1.13.10 4.2.7.2.686 [id number] 2020-08-24 00:00:00 2020-08-24 00:00:00 Orders Only Doctor Unassigned, [place] [facility] 1.2.840.114 350.1.13.10 4.2.7.2.[id number] [facility] Results Test Description Test Time Test Comments Results Result Co mments Source [facility] WITH [id number] 19:29:18* Test Item Value Reference Range Interpretation [...] 33.2 g/dL 31.6-35.1 RDW-SD (test code = 85571-4) 38.3 fL 39.0-49.9 L RDW-CV (test code = 788-0) 12.6 % 12.0-15.5 PLT (test code = 777-3) 345 See_Comment [Automated messa ge] The system which generated this result transmitted reference range: 166 - 358 10*3/?L. The reference range was not used to interpret this result as normal/abnormal. MPV (test code = 91605-1) 8.6 fL 9.5-12.9 L NRBC/100 WBC (test code = 4414737964) 0.0 See_Comment [Automated me ssage] The system which generated this result transmitted reference range: 0.0 - 10.0 /100 WBCs. The reference range was not used to interpret this result as normal/abnormal. NRBC x10^3 (test code = 0863825819) See_Comment [Automated messa ge] The system which generated this result transmitted reference range: 10*3/?L. The reference range was not used to interpret this result as normal/abnormal. GRAN MAT (NEUT) % (test code = 770-8) 70.2 % IMM GRAN % (test code = 1414904788) 0.40 % LYMPH % (test code = 736-9) 21.9 % MONO % (test code = 5905-5) 4.4 % EOS % (test code = 713-8) 2.6 % BASO % (test code = 706-2) 0.5 % GRAN MAT x10^3(ANC) (test code = 0937561472) 5.47 10*3/uL 1.88-7.09 IMM GRAN x10^3 (test code = 7290821006) 0.03 10*3/uL 0.00-0.06 LYMPH x10^3 (test code = 731-0) 1.70 10*3/uL 1.32-3.29 MONO x10^3 (test code = 742-7) 0.34 10*3/uL 0.33-0.92 EOS x10^3 (test code = 711-2) 0.20 10*3/uL 0.03-0.39 BASO x10^3 (test code = 704-7) 0.04 10*3/uL 0.01-0.07 Lab Interpretation (test code = 55927-9) [id number]00* Test Item Value Reference Range Interpretation Comme nts POCT PREG (test code = 1605) Negative On board controls acceptable with C Line (test code = 3574) Yes POCT PREG LOT # (test code = 3575) [id number] POCT PREG TEST DATE ( test code = 3576) 04/15/2024 Lab Interpretation (test cod e = 44812-4) Normal [facility]
--- NOTE | 2023-04-02 14:57 | RAD REPORT ---
EXAM DESCRIPTION: CT - C Spine Wo Con - 04/02/2023 2:34 pm CLINICAL HISTORY: Radiculopathy COMPARISON: none TECHNIQUE: Computed axial tomography of the cervical spine were obtained with sagittal and coronal r econstruction images generated and reviewed. All CT scans are performed using dose optimization technique as appropriate and may include automated exposure control or mA/KV adjustment according to patient size. FINDINGS: A cervical fracture is not seen. No dislocation. No high-grade central/foraminal stenosis noted IMPRESSION: A cervical fracture is not seen. No high-grade central/foraminal stenosis noted If the patient continues have symptoms to suggest spinal cord/spinal canal pathology then MRI would b e recommended.
--- NOTE | 2023-04-02 16:08 | EDPHYS ---
Physician Documentation [facility] Name: Omayra Parra Age: 32 yrs Sex: Female : 1990 Arrival Date: 04/02/2023 Time: 13:35 Bed Treatment Private MD: ED Physician Wenceslao Hutchison HPI: 04/02 14:21 This 32 yrs old Female presents to ER via Ambulatory with complaints of right shoulder sb4 pain. 14:28 Patient reports right-sided neck/shoulder pain for about 1 month. She has seen Ortho sb4 for it who prescribed Tylenol 3 and muscle relaxers. She has not had any imaging done. She states that usually the pain can be relieved with Tylenol 3 but today it was significantly worse. She describes the pain as sharp, radiates down her arm, and is worse with movement. 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 - Social history:: Smoking status: unknown. ROS: 14:28 Constitutional: Negative for fever, chills, and weight loss, sb4 14:28 MS/extremity: Positive for pain, of the anterior aspect of right shoulder, 14:28 All other systems are negative, Exam: 14:28 Constitutional: This is a well developed, well nourished patient who is awake, alert, sb4 and in no acute distress. Head/Face: Normocephalic, atraumatic. Eyes: Extra-ocular motions intact. Periorbital areas with no swelling, redness, or edema. ENT: Mucous membranes moist. Cardiovascular: Regular rate and rhythm with a normal S1 and S2. Respiratory: Lungs have equal breath sounds bilaterally, clear to auscultation and percussion. No rales, rhonchi or wheezes noted. No increased work of breathing, no retractions or nasal flaring. Abdomen/GI: Soft, non-tender, no distension. Neuro: Awake and alert, GCS 15, oriented to person, place, time, and situation. Motor strength 5/5 in all extremities. Sensory grossly intact. 14:28 Neck: External neck: tenderness, that is moderate, of the right sternocleidomastoid, 14:28 Musculoskeletal/extremity: ROM: limited active range of motion, limited passive range of motion due to pain, Circulation is intact in all extremities. Pulses: are normal with no appreciated deficits, Perfusion: the extremity is normally perfused throughout, Sensation intact. Vital Signs: 14:14 BP 117 / 86; Pulse 80; Resp 18 S; Temp 98.2(TE); Pulse Ox 99% on R/A; Weight 113.4 kg ph (R); Height 5 ft. 2 in. (R); 14:14 Body Mass Index 45.73 (113.40 kg, 157.48 cm) ph MDM: 13:51 Patient medically screened. sb4 14:28 Differential diagnosis:. sb4 15:14 Data reviewed: vital signs, nurses notes, radiologic studies, and as a result, I will sb4 discharge patient. 04/02 14:20 Order name: CT C Spine; Complete Time: 14:58 sb4 04/02 16:08 Order name: Sling; Complete Time: 16:16 sb4 Administered Medications: 15:25 Drug: Gabapentin PO 300 mg PO once Route: PO; ph 16:00 Follow up: Response: No adverse reaction ph 15:25 Drug: Dexamethasone IM 10 mg IM once Route: IM; Site: right deltoid; ph 16:00 Follow up: Response: No adverse reaction ph 15:25 Drug: Ketorolac IM 30 mg IM once Route: IM; Site: right deltoid; ph 16:00 Follow up: Response: No adverse reaction ph Disposition: 16:51 Co-signature as Attending Physician, Wenceslao Hutchison MD I reviewed the patient's care rt provided by the Advanced Practice Provider and agree with the diagnosis and treatment plan. Disposition Summary: 04/02/23 16:07 Discharge Ordered Notes: Location: Home sb4 Problem: an acute exacerbation sb4 Symptoms: have improved sb4 Condition: Stable sb4 Diagnosis - Cervicalgia sb4 Followup: sb4 - With: Private Physician - When: As needed - Reason: Further diagnostic work-up Discharge Instructions: - Discharge Summary Sheet sb4 - Pinched Nerve sb4 - Cervical Radiculopathy, [id number] sb4 Forms: - Work release form sb4 - Thank You Letter sb4 - Patient Portal Instructions sb4 - Leadership Thank You Letter sb4 Prescriptions: - gabapentin 100 mg Oral capsule - take 1 capsule ORAL route 3 times per day; 30 capsule; Refills: 0, Product sb4 Selection Permitted - Diclofenac Sodium 75 mg Oral Tablet Sustained Release - take 1 tablet ORAL route 2 times per day; 30 tablet; Refills: 0, Product sb4 Selection Permitted - Medrol (Ye) 4 mg Oral Tablets, Dose Pack - take 1 tablet ORAL route as directed - follow package instructions; 1 packet; sb4 Refills: 0, Product Selection Permitted Signatures: Dispatcher [employer] Marilou Yusuf, SUSAN RN ph Yany Frye, PASully PA-C sb4 Wenceslao Hutchison MD MD rt
--- NOTE | 2023-04-02 16:08 | ER ---
Nurse's Notes [facility] Name: Omayra Parra Age: 32 yrs Sex: Female : 1990 Arrival Date: 04/02/2023 Time: 13:35 Bed Treatment Private MD: Diagnosis: Cervicalgia Presentation: 04/02 14:14 Chief complaint: Patient states: right shoulder pain x 1 month ago, pt denies any ph injury. Coronavirus screen: At this time, the client does not indicate any symptoms associated with coronavirus-19. Ebola Screen: Patient denies travel to an Ebola-affected area in the 21 days before illness onset. Initial Sepsis Screen: Does the patient meet any 2 criteria? No. Patient's initial sepsis screen is negative. Does the patient have a suspected source of infection? No. Patient's initial sepsis screen is negative. Risk Assessment: Do you want to hurt yourself or someone else? Patient reports no desire to harm self or others. Onset of symptoms was February 2023. 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 - Social history:: Smoking status: unknown. Screenin:34 [facility] ED Fall Risk Assessment (Adult) History of falling in the last 3 months, ph including since admission No falls in past 3 months (0 pts) Score/Fall Risk Level 0 - 2 = Low Risk Oriented to surroundings, Maintained a safe environment, Hourly rounding (assess needs \T\ fall precautionary measures) done, Used ambulatory aids as needed (educated on \T\ assisted with). Abuse screen: Denies threats or abuse. Denies injuries from another. Nutritional screening: No deficits noted. Tuberculosis screening: No symptoms or risk factors identified. Assessment: 15:33 General: Appears in no apparent distress. uncomfortable, Behavior is calm, cooperative, ph appropriate for age. Pain: Complains of pain in anterior aspect of right shoulder. Neuro: Level of Consciousness is awake, alert, obeys commands, Oriented to person, place, time, situation. Derm: Skin is pink, warm \T\ dry. Vital Signs: 14:14 BP 117 / 86; Pulse 80; Resp 18 S; Temp 98.2(TE); Pulse Ox 99% on R/A; Weight 113.4 kg ph (R); Height 5 ft. 2 in. (R); 14:14 Body Mass Index 45.73 (113.40 kg, 157.48 cm) ph ED Course: 13:38 Patient arrived in ED. im 13:39 Yany Frye PA-C is PHCP. sb4 13:39 Wenceslao Hutchison MD is Attending Physician. sb4 14:13 Arm band placed on. ph 14:15 Triage completed. ph 14:35 CT C Spine In Process Unspecified. EDAZ 14:57 Marilou Christie RN is Primary Nurse. ph 15:34 Patient has correct armband on for positive identification. Bed in low position. Call ph light in reach. 16:24 No provider procedures requiring assistance completed. Patient did not have IV access ph during this emergency room visit. Administered Medications: 15:25 Drug: Gabapentin PO 300 mg PO once Route: PO; ph 16:00 Follow up: Response: No adverse reaction ph 15:25 Drug: Dexamethasone IM 10 mg IM once Route: IM; Site: right deltoid; ph 16:00 Follow up: Response: No adverse reaction ph 15:25 Drug: Ketorolac IM 30 mg IM once Route: IM; Site: right deltoid; ph 16:00 Follow up: Response: No adverse reaction ph Medication: 15:34 VIS not applicable for this client. ph Outcome: 16:07 Discharge ordered by . sb4 16:25 Discharged to home ambulatory, ph 16:25 Condition: good 16:25 Discharge instructions given to patient, Instructed on discharge instructions, follow up and referral plans. medication usage, Demonstrated understanding of instructions, follow-up care, medications, Prescriptions given X 3, 16:27 Patient left the ED. ph Signatures: Dispatcher [employer] Marilou Yusuf, SUSAN RN Yany Riley PA-C PA-C sb4 Aviva Solorzano im
[2023-04-02 16:56] VITALS: BP 117/86; TEMP 98.2; O2SAT 99
== END ==
LOC: ER 13:35
DX: M54.2 Cervicalgia (principal); M25.511 Pain in right shoulder; Z88.5 Allergy status to narcotic agent
CPT/HCPCS: 72125; J1100; 96372; 99284

== ENCOUNTER → 2023-04-17 | Emergency (ER) | payer OTHER ==
[~2023-04-17] MED LIST changes: +CETIRIZINE HCL 5 MG TABLET ONE; -GABAPENTIN 300 MG CAP ONE; -KETOROLAC 30 MG/ML INJ ONE; +METHYLPREDNISOLONE 125 MG INJ ONE; -dexAMETHasone 10 MG/ML VIAL ONE
--- OUTSIDE RECORDS SUMMARY | 2023-04-17 13:03 | XMS REPORT | Continuity of Care Document ---
Author Name Unknown Address [address] [facility] [place] [address] [facility] Address [address] [facility] [place] [address] Care Team Providers Care Bundle Clerk Name Role Phone CARMELINA HANLEY Primary Care Physician Unavailab SHERLEY Gabriel Attending Clinician Unavailable Sherley Diez MD Attending Clinician [phone] JACQUIE NORIEGA Attending Clinician Unavail able FERNY_GCBZW_Lalita_S Attending Clinician UnavailJOSÉ Gonsalez Attending Clinician Unavailable Doctor Unassigned, [place] Attending Clinician U navailable Jacquie Pederson Attending Clinician + Geraldine Galvan MD Attending Clinician [phone] Radiology Attending Clinician Unavailable RADIOLOGY Attending Clinician Unavailable GERALDINE GALVAN Attending Clinician Unavailable Prisca Dinh RN Attending Clinician [phone] Chavo Jose MD Attending Clinician [phone] Rojelio De La Rosa MD Attending Clinician [phone] SHERLEY DIEZ Admitting Clinician Unavailable FERNY_GCBZW_Lalita_S Admitting Clinician UnavailRojelio Brush MD Admitting Clinician [phone] Payers Payer Name Policy Type Policy Number Effective Date Expirati on Date Source [id number]00 Problems Condition Name Condition Details Condition Category Status Onset Date Resolution Date Last Treatment Date Treating Clinician Comments Source Elevated blood pressure reading without diagnosis of hypertensi on Elevated blood pressure reading without diagnosis of hypertensi on Disease Active 3-29 00:00: 00 [facility] Cellulitis of submental space Cellulitis of submental space Disease Active 08-25 00:00: 00 [facility] Failure of outpatient treatment Failure of outpatient treatment Disease Active 08-24 00:00: 00 [facility] Missed menses Missed menses Disease Active 10-21 00:00: 00 [facility] History of anxiety History of anxiety Disease Active 10-21 00:00: 00 [facility] Tobacco use disorder Tobacco use disorder Disease [facility] 10-21 00:00: 00 [facility] General counseling and advice for contracept jamison management General counseling and advice for contracept jamison management Disease [facility] 11-01 00:00: 00 Overview: Formattin g of this note might be different from the original. 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 [facility] Generalize d anxiety disorder Generalize d anxiety disorder Disease [facility] 11-01 00:00: 00 [facility] Morbid obesity Morbid obesity Disease [facility] 11-01 00:00: 00 [facility] Allergies, Adverse Reactions, Alerts Allergy Name Allergy Type Status Severity Reaction(s) Onset Date Inactive Date Treating Clinician Comments Source MORPHINE DRUG INGREDI Active Low Anxiety 08-24 00:00: 00 [facility] Morphine Propensi ty to adverse reaction s Active Nausea and/or Vomiting 08-24 00:00: 00 [facility] Social History Social Habit Start Date Stop Date Quantity Comments Source Sexual orientation [facility] History of Social function 2023-01-11 00:00:00 2023-01-11 00:00:00 [facility] Alcohol intake 2023-01-11 00:00:00 2023-01-11 00:00:00 .24 /d [facility] Exposure to SARS-CoV-2 (event) 2021-04-03 00:00:00 2021-05-03 09:51:00 Not sure [facility] Cigarettes smoked current (pack per day) - Reported 2021-05-03 00:00:00 2021-05-03 00:00:00 [facility] Cigarette pack-years 2021-05-03 00:00:00 2021-05-03 00:00:00 [facility] Tobacco use and exposure 2021-05-03 00:00:00 2021-05-03 00:00:00 Smokeless tobacco non-user [facility] Education - What is the highest level of school you have completed or the highest degree you have received? 2020-08-24 00:00:00 2020-08-24 00:00:00 Some college, no degree [facility] Tobacco Comment 2020-08-24 00:00:00 2020-08-24 00:00:00 quit last week [facility] History of tobacco use 2012-02-02 00:00:00 2012-02-02 00:00:00 Cigarette Smoker [facility] Sex Assigned At 1990 00:00:00 1990 00:00:00 [facility] Smoking Status Start Date Stop Date Source Smokes tobacco daily 2021-05-03 00:00:00 [facility] Medications Ordered Medication Name Filled Medication Name Start Date Stop Date Current Medication? Ordering Clinician Indication Dosage Frequency Signature (SIG) Comments Components Source acetaminoph en (TYLENOL) tablet 975 mg 2022-02 21:00: 00 01-11 19:56 :00 No 975mg 975 mg, Oral, ONCE NOW, 1 dose, On Sun01/11/23 at 1500, [facility] ondansetron (ZOFRAN (PF)) injection 4 mg 2022-02 20:00: 00 01-11 19:56 :00 No 4mg 4 mg, Slow IV Push, ONCE, 1 dose, On Sun01/11/23 at 1400, MAKAYLA [facility] iopamidol (ISOVUE 370-500 mL) injection 80 mL 2022-02 20:00: 00 01-11 20:00 :00 No [id number] 80mL 80 mL, Intravenou s, ONCE, 1 dose, On Glory 01/11/23 at 1400, Routine [facility] ketorolac (TORADOL) injection 30 mg 2022-02 19:15: 00 01-11 18:46 :00 No 30mg 30 mg, Slow IV Push, ONCE NOW, 1 dose, On Glory 01/11/23 at 1315, MAKAYLA [facility] ampicillin- sulbactam (UNASYN) 3 g in NaCl 0.9% (NS) 100 mL MINI-BAG 2022-02 18:30: 00 01-11 19:52 :00 No 3g 3 g, IV Piggyback, ONCE, 1 dose, On Glory 01/11/23 at 1230, Administer over 30 Minutes, 100 mL
Reas on for Anti-Infec tive: Documented Infection< br>Documen tali Infection Site: HEENT
D uration of Therapy: Other (see Comments) [facility] dexamethaso ne sod phos PF injection 10 mg 2022-02 18:30: 00 01-11 18:47 :00 No 10mg 10 mg, Slow IV Push, ONCE, 1 dose, On Glory 01/11/23 at 1230, 1 mL [facility] diclofenac 75 mg EC tablet 2022-02 00:00: 00 Yes [id number] 75mg Take 1 tablet by mouth in the morning and 1 tablet in the evening. Take with meals. [facility] ondansetron 4 mg disintegrat ing tablet 2022-02 00:00: 00 Yes [id number] 4mg Take 1 tablet by mouth every 8 (eight) hours as needed for Nausea and Vomiting (N/V). [facility] acetaminoph en (TYLENOL ARTHRITIS PAIN) 650 mg CR tablet 2022-02 00:00: 00 Yes [id number] 650mg Take 1 tablet by mouth every 8 (eight) hours as needed for Pain. [facility] amoxicillin -clavulanat e 875-125 mg per tablet 2022-02 2-07 00:00: 00 01-22 05:59 :00 No [id number] 1{tbl} Take 1 tablet by mouth every 12 (twelve) hours for 10 days. [facility] dicyclomine 20 mg tablet 09-25 00:00: 00 05-03 00:00 :00 No [id number] 20mg Take 1 tablet by mouth every 6 (six) hours as needed for Abdominal pain. [facility] ondansetron (ZOFRAN) 4 mg tablet 09-25 00:00: 00 05-03 00:00 :00 No [id number] 4mg Take 1 tablet by mouth every 8 (eight) hours as needed for Nausea and Vomiting (N/V). [facility] omeprazole 20 mg capsule 08-27 00:00: 00 05-03 00:00 :00 No [id number] 20mg Take 1 capsule by mouth daily. [facility] sulfamethox azole-trime thoprim 800-160 mg per tablet 08-26 00:00: 00 05-03 00:00 :00 No [id number] 1{tbl} Take 1 tablet by mouth 2 (two) times daily. [facility] HYDROcodone -acetaminop hen 5-325 mg tablet 08-26 00:00: 00 05-03 00:00 :00 No [id number] 1{tbl} Take 1 tablet by mouth every 6 (six) hours as needed for Pain (scale 4-6) or Pain (scale 7-10). Indication s: acute pain [facility] Immunizations Ordered Immunization Name Filled Immunization Name Date Status Comments Source TDAP 2012-09-25 00:00:00 Completed [facility] Meningococcal Vaccine 2011-01-25 00:00:00 Completed [facility] Rubella 2010-04-01 00:00:00 Completed [facility] Td 2006-02-05 00:00:00 Completed [facility] Varicella (varivax)(chicken pox) 1996-02-06 00:00:00 Completed [facility] Meningococcal Vaccine Unknown Completed [facility] Rubella Unknown Completed [facility] TD, NOS Unknown Completed [facility] Varicella (varivax)(chicken pox) Unknown Completed [facility] TDAP Unknown Completed [facility] Vital Signs Vital Name Observation Time Observation Value Comments S ource Systolic blood pressure 2023-01-11 20:00:00 144 mm[Hg[facility] Diastolic blood pressure 2023-01-11 20:00:00 100 mm[Hg] [facility] Heart rate 2023-01-11 20:00:00 74 /min [facility] Respiratory rate 2023-01-11 20:00:00 16 /min [facility] Oxygen saturation in Arterial blood by Pulse oximetry 2023-01-11 20:00:00 97 /min [facility] Body temperature 2023-01-11 18:04:00 37.11 Ann-Marie [facility] Body height 2023-01-11 18:04:00 157.5 cm [facility] Body weight 2023-01-11 18:04:00 117.935 kg [facility] BMI 2023-01-11 18:04:00 47.55 kg/m2 [facility] Systolic blood pressure 2021-05-03 14:52:00 144 mm[Hg] [facility] Diastolic blood pressure 2021-05-03 14:52:00 98 mm[Hg] [facility] Heart rate 2021-05-03 14:52:00 75 /min [facility] 2021-05-03 14:51:00 36.22 Ann-Marie [facility] Respiratory rate 2021-05-03 14:51:00 20 /min [facility] Body height 2021-05-03 14:51:00 157.5 cm [facility] Body weight 2021-05-03 14:51:00 116.376 kg [facility] BMI 2021-05-03 14:51:00 46.93 kg/m2 [facility] Systolic blood pressure 2021-05-03 14:52:00 144 mm[Hg] [facility] Diastolic blood pressure 2021-05-03 14:52:00 98 mm[Hg] [facility] Heart rate 2021-05-03 14:52:00 75 /min [facility] Body temperature 2021-05-03 14:51:00 36.22 Ann-Marie [facility] Respiratory rate 2021-05-03 14:51:00 20 /min [facility] Body height 2021-05-03 14:51:00 157.5 cm [facility] Body weight 2021-05-03 14:51:00 116.376 kg [facility] BMI 2021-05-03 14:51:00 46.93 kg/m2 [facility] Procedures Procedure Date / Time Performed Performing Clinicia n Source CT SOFT TISSUE NECK W CONTRAST 2023-01-11 19:00:00 Sherley Diez [facility] COMP. METABOLIC PANEL ([id number]) 2023-01-11 18:45:00 Sherley Diez [facility] CBC WITH DIFF 2023-01-11 18:45:00 Sherley Diez [facility] POCT TEST 2023-01-11 18:39:00 Sravan Diez [facility] CONSENT/REFUSAL FOR DIAGNOSIS AND TREATMENT 2023-01-11 18:00:13 Doctor Unassigned, [place] [facility] LAB ONLY PAP SMEAR-LIQUID BASED 2021-05-03 16:08:00 Jacquie Noriega [facility] PAP SMEAR-LIQUID BASED-CP 2021-05-03 16:08:00 Jacquie Noriega [facility] Encounters Start Date/Time End Date/Time Encounter Type Admission Type Attending Clinicians Care Facility Care Department Encounter ID Source 2020-12-06 17:05:57 Emergency [facility] [id number] [facility] 2023-01-11 12:05:00 2023-01-11 14:34:00 Emergency X SHERLEY DIEZ [facility] ERT [id number] [facility] 2023-01-11 12:05:00 2023-01-11 14:34:00 Emergency Sherley Diez [facility] 1.840.114 350.1.13.10 4.2.7.2.686 [id number] [facility] 2023-01-01 09:15:00 2023-01-01 09:15:00 Outpatient JACQUIE WU [facility] [id number] [facility] 2022-12-02 00:00:00 2022-12-02 00:00:00 Outpatient GC_GCBZW_Ka diyala_S [facility] [id number] [facility] 2021-12-03 12:38:34 2021-12-03 12:38:[address] [facility] [id number] [place] 2021-07-05 13:00:00 2021-07-05 13:00:00 Outpatient JOSÉ PURVIS [facility] [id number] [facility] 2021-06-03 13:30:00 2021-06-03 13:30:00 Outpatient JOSÉ PURVIS [facility] [id number] [facility] 2021-05-23 00:00:00 2021-05-23 00:00:00 Orders Only Doctor Unassigned, [place] [facility] .840.114 350.1.13.10 4.2.7.2.686 [id number] [facility] 2021-05-19 00:00:00 2021-05-19 00:00:00 Telephone Jacquie Noriega [facility] [employer] [facility] 1.840.114 350.1.13.10 4.2.7.2.686 [id number] [facility] 2021-05-03 09:30:00 2021-05-03 10:51:04 Outpatient JACQUIE WU [facility] [id number] [facility] 2021-05-03 09:30:00 2021-05-03 10:51:04 Office Visit Jacquie Noriega [facility] [employer]OUNT[employer] [facility] CHILD [facility] 1.840.114 350.1.13.10 4.2.7.2.686 [id number] [facility] 2021-05-03 09:30:00 2021-05-03 10:51:04 Outpatient R JACQUIE NORIEGA [facility] [id number] [facility] 2021-05-03 09:30:00 2021-05-03 10:51:04 Outpatient R JACQUIE NORIEGA [facility] [id number] [facility] 2021-05-03 09:30:00 2021-05-03 10:51:04 Office Visit Jacquie Noriega [facility] [employer] [facility] & CHILD [facility] 1.0.114 350.1.13.10 4.2.7.2.686 [id number] [facility] 2021-05-03 00:00:00 2021-05-03 00:00:00 Orders Only Doctor Unassigned, [place] [facility] 1..114 350.1.13.10 4.2.7.2.686 [id number] [facility] 2021-05-03 00:00:00 2021-05-03 00:00:00 Telephone Jacquie Noriega [facility] [employer] ACC[employer] [facility] CH[facility] 1..114 350.1.13.10 4.2.7.2.686 [id number] [facility] 2021-05-03 00:00:00 2021-05-03 00:00:00 Telephone Jacquie Noriega [facility] [employer] [facility] CHILD [facility] 1.0.114 350.1.13.10 4.2.7.2.686 [id number] [facility] 2020-09-24 23:09:00 2020-09-25 04:02:00 Emergency Geraldine Galvan [facility] 1.2.840.114 350.1.13.10 4.2.7.2.686 [id number] [facility] 2020-09-24 23:09:00 2020-09-25 04:02:00 Emergency Geraldine Galvan [facility] 1.2.840.114 350.1.13.10 4.2.7.2.686 [id number] 2020-09-02 15:30:00 2020-09-02 23:59:00 Hospital Encounter Radiology [facility] 1.2.840.114 350.1.13.10 4.2.7.2.686 [id number] [facility] 2020-09-02 15:30:00 2020-09-02 23:59:00 Hospital Encounter Radiology [facility] 1.2.840.114 350.1.13.10 4.2.7.2.686 [id number] 2020-09-02 00:00:00 2020-09-02 00:00:00 Outpatient R RADIOLOGY [facility] [id number] [facility] 2020-08-27 21:50:00 2020-08-27 23:10:00 Emergency Geraldine Galvan [facility] 1.2.840.114 350.1.13.10 4.2.7.2.686 [id number] [facility] 2020-08-27 21:50:00 2020-08-27 23:10:00 Emergency Geraldine Galvan [facility] 1.2.840.114 350.1.13.10 4.2.7.2.686 [id number] 2020-08-27 21:50:00 2020-08-27 21:50:00 Emergency X GERALDINE GALVAN [facility] ERT [id number] [facility] 2020-08-27 00:00:00 2020-08-27 00:00:00 Transition of Care Prisca Dinh 1.2.840.114 350.1.13.10 4.2.7.2.686 [id number] [facility] 2020-08-27 00:00:00 2020-08-27 00:00:00 Transition of Care Prisca Dinh 1.2.840.114 350.1.13.10 4.2.7.2.686 [id number] 2020-08-24 14:12:00 2020-08-26 13:37:00 [facility] 1.2.840.114 350.1.13.10 4.2.7.2.686 [id number] 2020-08-24 14:12:00 2020-08-26 13:37:00 Hospital Encounter Chavo Jose [facility] 1.2.840.114 350.1.13.10 4.2.7.2.686 [id number] [facility] 2020-08-24 13:52:00 2020-08-24 13:52:00 Emergency X [facility] ERT [id number] [facility] 2020-08-24 00:00:00 2020-08-24 00:00:00 Orders Only Doctor Unassigned, [place] [facility] 1.2.840.114 350.1.13.10 4.2.7.2.686 [id number] 2020-08-24 00:00:00 2020-08-24 00:00:00 Orders Only Doctor Unassigned, [place] [facility] 1.2.840.114 350.1.13.10 4.2.7.2.686 [id number] [facility] Results Test Description Test Time Test Comments Results Result Co mments Source [facility] WITH [id number] 19:29:18* Test Item Value Reference Range Interpretation [...] 33.2 g/dL 31.6-35.1 RDW-SD (test code = 64632-3) 38.3 fL 39.0-49.9 L RDW-CV (test code = 788-0) 12.6 % 12.0-15.5 PLT (test code = 777-3) 345 See_Comment [Automated messa ge] The system which generated this result transmitted reference range: 166 - 358 10*3/?L. The reference range was not used to interpret this result as normal/abnormal. MPV (test code = 49195-6) 8.6 fL 9.5-12.9 L NRBC/100 WBC (test code = 5426210371) 0.0 See_Comment [Automated me ssage] The system which generated this result transmitted reference range: 0.0 - 10.0 /100 WBCs. The reference range was not used to interpret this result as normal/abnormal. NRBC x10^3 (test code = 0368772227) See_Comment [Automated messa ge] The system which generated this result transmitted reference range: 10*3/?L. The reference range was not used to interpret this result as normal/abnormal. GRAN MAT (NEUT) % (test code = 770-8) 70.2 % IMM GRAN % (test code = 5231099305) 0.40 % LYMPH % (test code = 736-9) 21.9 % MONO % (test code = 5905-5) 4.4 % EOS % (test code = 713-8) 2.6 % BASO % (test code = 706-2) 0.5 % GRAN MAT x10^3(ANC) (test code = 1718594281) 5.47 10*3/uL 1.88-7.09 IMM GRAN x10^3 (test code = 7059264785) 0.03 10*3/uL 0.00-0.06 LYMPH x10^3 (test code = 731-0) 1.70 10*3/uL 1.32-3.29 MONO x10^3 (test code = 742-7) 0.34 10*3/uL 0.33-0.92 EOS x10^3 (test code = 711-2) 0.20 10*3/uL 0.03-0.39 BASO x10^3 (test code = 704-7) 0.04 10*3/uL 0.01-0.07 Lab Interpretation (test code = 07725-4) [id number]:00* Test Item Value Reference Range Interpretation Comme nts POCT PREG (test code = 1605) Negative On board controls acceptable with C Line (test code = 3574) Yes POCT PREG LOT # (test code = 3575) [id number] POCT PREG TEST DATE ( test code = 3576) 04/15/2024 Lab Interpretation (test cod e = 70265-8) Normal [facility]
--- NOTE | 2023-04-17 13:45 | EDPHYS ---
Physician Documentation [facility] Name: Omayra Parra Age: 32 yrs Sex: Female : 1990 Arrival Date: 04/17/2023 Time: 13:00 Bed 9 Private MD: ED Physician Wenceslao Hutchison HPI: 04/16 13:25 This 32 yrs old Female presents to ER via Ambulatory with complaints of Rash. cp 13:25 The patient's rash thought to be caused by medication. The rash is located on the body cp diffusely. 13:25 Onset: The symptoms/episode began/occurred 1 week(s) ago. cp 13:25 The rash can be described as diffuse, itchy. Patient is a 32-year-old female with past cp medical history significant for hyperlipidemia who presents to the emergency department with complaints of continued rash. Patient reports she has had this itchy, diffuse rash for about a week that started after she was started on a cholesterol medication. Patient reports she was seen in this emergency department started on some oral steroids and subsequently followed up with her primary care doctor who took her off the cholesterol medication and increased steroids. This improved the rash but after finishing the steroids the rash has returned and so the patient returns to the emergency department. 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 - Social history:: Smoking status: Reported history of juuling and/or vaping. ROS: 13:30 Constitutional: Negative for body aches, chills, fever, poor PO intake, cp 13:30 Eyes: Negative for injury, pain, redness, and discharge, cp 13:30 ENT: Negative for drainage from ear(s), ear pain, sore throat, difficulty swallowing, difficulty handling secretions, 13:30 Cardiovascular: Negative for chest pain, edema, palpitations, 13:30 Respiratory: Negative for cough, shortness of breath, wheezing, 13:30 Abdomen/GI: Negative for abdominal pain, nausea, vomiting, and diarrhea, constipation, 13:30 Skin: Positive for rash, diffusely, 13:30 Neuro: Negative for altered mental status, headache, weakness, 13:30 All other systems are negative, Exam: 13:33 Constitutional: The patient appears in no acute distress, alert, awake, non-toxic, well cp developed, well nourished, obese, 13:33 Head/Face: Normocephalic, atraumatic. cp 13:33 Eyes: Periorbital structures: appear normal, Conjunctiva: normal, no exudate, no injection, Sclera: no appreciated abnormality, Lids and lashes: appear normal, bilaterally, 13:33 ENT: External ear(s): are unremarkable, Nose: is normal, Mouth: Lips: moist, Oral mucosa: moist, Posterior pharynx: Airway: no evidence of obstruction, patent, 13:33 Cardiovascular: Rate: normal, 13:33 Respiratory: the patient does not display signs of respiratory distress, Respirations: normal, no use of accessory muscles, no retractions, labored breathing, is not present, Breath sounds: are clear throughout, no decreased breath sounds, no stridor, no wheezing, 13:33 Skin: rash can be described as erythematous, hives, and is diffusely located, Vital Signs: 13:07 BP 126 / 73; Pulse 89; Resp 18; Temp 97.6(TE); Pulse Ox 100% on R/A; Weight 115.21 kg; ld1 Height 5 ft. 2 in. ; Pain 0/10; 13:52 BP 122 / 74; Pulse 71; Resp 16; Pulse Ox 100% on R/A; mb9 13:07 Body Mass Index 46.46 (115.21 kg, 157.48 cm) ld1 13:07 Pain Scale: Adult ld1 MDM: 13:11 Patient medically screened. cp 13:30 Differential diagnosis: hives, urticaria, scabies, cellulitis. 13:44 Data reviewed: vital signs, nurses notes, and as a result, I will discharge patient. cp 13:44 I considered the following discharge prescriptions or medication management in the emergency department Medications were administered in the Emergency Department. See MAR. 13:44 Counseling: I had a detailed discussion with the patient and/or guardian regarding the cp historical points, exam findings, and any diagnostic results supporting the discharge/admit diagnosis, to return to the emergency department if symptoms worsen or persist or if there are any questions or concerns that arise at home. Response to treatment: the patient's symptoms have mildly improved after treatment, and as a result, I will discharge patient. Administered Medications: 13:30 Drug: MethylPREDNISolone Sodium Succinate IM 125 mg IM once Route: IM; Site: right mb9 deltoid; 13:45 Follow up: Response: No adverse reaction mb9 13:30 Drug: ZyrTEC - Cetirizine PO 10 mg PO once Route: PO; mb9 13:45 Follow up: Response: No adverse reaction mb9 Disposition: 04/17 10:15 Co-signature as Attending Physician, Wenceslao Hutchison MD I reviewed the patient's care rt provided by the Advanced Practice Provider and agree with the diagnosis and treatment plan. Disposition Summary: 04/17/23 13:45 Discharge Ordered Notes: Location: Home cp Problem: an ongoing problem cp Symptoms: have improved cp Condition: Stable cp Diagnosis - Allergy, unspecified cp Followup: cp - With: Private Physician - When: 2 - 3 days - Reason: Recheck today's complaints Discharge Instructions: - Discharge Summary Sheet cp - Allergies, Adult cp - Hives cp Forms: - Medication Reconciliation Form cp - Thank You Letter cp - Antibiotic Education cp - Prescription Opioid Use cp - Patient Portal Instructions cp - Leadership Thank You Letter cp - Work release form mb9 Prescriptions: - Pepcid 20 mg Oral Tablet - take 1 tablet ORAL route every 12 hours for 10 days; 20 tablet; Refills: 0, cp Product Selection Permitted - Zyrtec 10 mg Oral Tablet - take 1 tablet ORAL route once daily As needed; 20 tablet; Refills: 0, Product cp Selection Permitted - Prednisone 20 mg Oral tablet - take 3 tablet ORAL route once daily for 5 days; 15 tablet; Refills: 0, Product cp Selection Permitted Signatures: Jasbir Meredith PA PA cp Jodi Núñez RN RN ld1 Rosa Dean RN RN mb9 Wenceslao Hutchison MD MD rt
--- NOTE | 2023-04-17 13:45 | ER ---
Nurse's Notes [facility] [place] Name: Omayra Parra Age: 32 yrs Sex: Female : 1990 Arrival Date: 04/17/2023 Time: 13:00 Bed 9 Private MD: Diagnosis: Allergy, unspecified Presentation: 04/16 13:07 Chief complaint: Patient states: Rash X 1 week. Pt reports rash occurring after taking ld1 new medication, Atorvastatin. Rash to entire body is becoming worse even after receiving medications for rash. Coronavirus screen: At this time, the client does not indicate any symptoms associated with coronavirus-19. Ebola Screen: No symptoms or risks identified at this time. Initial Sepsis Screen: Does the patient meet any 2 criteria? No. Patient's initial sepsis screen is negative. Does the patient have a suspected source of infection? No. Patient's initial sepsis screen is negative. Risk Assessment: Do you want to hurt yourself or someone else? Patient reports no desire to harm self or others. Onset of symptoms was April 17, 2023. 13:07 Method Of Arrival: Ambulatory ld1 13:07 Acuity: GAYE 4 ld1 Triage Assessment: 13:09 General: Appears in no apparent distress. comfortable, Behavior is calm, cooperative, ld1 appropriate for age. Pain: Denies pain. EENT: No signs and/or symptoms were reported regarding the EENT system. Neuro: Level of Consciousness is awake, alert, obeys commands, Oriented to person, place, time, situation. Cardiovascular: Capillary refill < 3 seconds Patient's skin is warm and dry. Respiratory: Airway is patent Respiratory effort is even, unlabored. GI: Abdomen is round non-distended. : No signs and/or symptoms were reported regarding the genitourinary system. Derm: Rash noted that is Red itchy rash to entire body X 1 week Reports itching. Musculoskeletal: No signs and/or symptoms reported regarding the musculoskeletal system. 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 - Social history:: Smoking status: Reported history of juuling and/or vaping. Screenin:24 [facility] ED Fall Risk Assessment (Adult) History of falling in the last 3 months, mb9 including since admission No falls in past 3 months (0 pts) Confusion or Disorientation No (0 pts) Intoxicated or Sedated No (0 pts) Impaired Gait No (0 pts) Mobility Assist Device Used No (0 pt) Altered Elimination No (0 pt) Score/Fall Risk Level 0 - 2 = Low Risk Oriented to surroundings, Maintained a safe environment, Educated pt \T\ family on fall prevention, incl call for assistance when getting out of bed. Abuse screen: Denies threats or abuse. Nutritional screening: No deficits noted. Tuberculosis screening: No symptoms or risk factors identified. Assessment: 13:31 General: Appears in no apparent distress. Behavior is calm, cooperative. Pain: Denies mb9 pain. Neuro: Level of Consciousness is awake, alert, obeys commands, Oriented to person, place, time, situation, Appropriate for age. Cardiovascular: Patient's skin is warm and dry. Respiratory: Airway is patent Respiratory effort is even, unlabored, Respiratory pattern is regular, symmetrical, Breath sounds are clear bilaterally. GI: No signs and/or symptoms were reported involving the gastrointestinal system. : No signs and/or symptoms were reported regarding the genitourinary system. EENT: No signs and/or symptoms were reported regarding the EENT system. Derm: Skin is pink, warm \T\ dry. Rash noted that is itchy, red, urticaria, on back, chest, abdomen, right arm and left arm. Musculoskeletal: Range of motion: intact in all extremities. 13:46 Reassessment: No changes from previously documented assessment. Patient and/or family mb9 updated on plan of care and expected duration. Pain level reassessed. Patient is alert, oriented x 3, equal unlabored respirations, skin warm/dry/pink. Vital Signs: 13:07 BP 126 / 73; Pulse 89; Resp 18; Temp 97.6(TE); Pulse Ox 100% on R/A; Weight 115.21 kg; ld1 Height 5 ft. 2 in. ; Pain 0/10; 13:52 BP 122 / 74; Pulse 71; Resp 16; Pulse Ox 100% on R/A; mb9 13:07 Body Mass Index 46.46 (115.21 kg, 157.48 cm) ld1 13:07 Pain Scale: Adult ld1 ED Course: 13:04 Patient arrived in ED. rg4 13:09 Triage completed. ld1 13:09 Arm band placed on right wrist. ld1 13:10 Jasbir Meredith PA is PHCP. cp 13:10 Wenceslao Hutchison MD is Attending Physician. cp 13:24 Rosa Dean, RN is Primary Nurse. mb9 13:24 Bed in low position. Call light in reach. Side rails up X 1. Client placed on mb9 continuous cardiac and pulse oximetry monitoring. NIBP monitoring applied. 13:24 No provider procedures requiring assistance completed. mb9 13:45 Provided Education on: pressing call light. mb9 13:45 Patient did not have IV access during this emergency room visit. mb9 Administered Medications: 13:30 Drug: MethylPREDNISolone Sodium Succinate IM 125 mg IM once Route: IM; Site: right mb9 deltoid; 13:45 Follow up: Response: No adverse reaction mb9 13:30 Drug: ZyrTEC - Cetirizine PO 10 mg PO once Route: PO; mb9 13:45 Follow up: Response: No adverse reaction mb9 Medication: 13:24 VIS not applicable for this client. mb9 Outcome: 13:45 Discharge ordered by . cp 13:46 Discharged to home ambulatory, mb9 13:46 Condition: stable 13:46 Discharge instructions given to patient, Instructed on discharge instructions, follow up and referral plans. Demonstrated understanding of instructions, follow-up care, medications, Prescriptions given X 3, 13:52 Patient left the ED. mb9 Signatures: Jasbir Meredith PA PA cp Garcia, Rubi rg4 Jodi Núñez RN RN ld1 Rosa Dean, RN RN mb9
[2023-04-17 14:28] VITALS: BP 122/74; TEMP 97.6; O2SAT 100
== END ==
LOC: ER 13:00
DX: R21 Rash and other nonspecific skin eruption (principal); T78.40XA Allergy, unspecified, initial encounter; Z88.5 Allergy status to narcotic agent
CPT/HCPCS: J2930

== ENCOUNTER 2023-06-14 09:36 | Emergency (ER) | payer OTHER ==
--- OUTSIDE RECORDS SUMMARY | 2023-06-14 09:45 | XMS REPORT | Continuity of Care Document ---
Author Name Unknown Address [address] [facility] [place] [address] [facility] Address [address] [facility] [address] [place] [address] Care Team Providers Care Auto Driver Name Role Phone CARMELINA HANLEY Primary Care Physician Unavailab SHERLEY Gabriel Attending Clinician Unavailable Sherley Diez MD Attending Clinician [phone] JACQUIE NORIEGA Attending Clinician Unavail able GC_GCBZW_Lalita_S Attending Clinician UnavailJOSÉ Gonsalez Attending Clinician Unavailable Doctor Unassigned, [place] Attending Clinician U navailable Jacquie Pederson Attending Clinician + Geraldine Galvan MD Attending Clinician [phone] Radiology Attending Clinician Unavailable RADIOLOGY Attending Clinician Unavailable GERALDINE GALVAN Attending Clinician Unavailable Prisca Dinh RN Attending Clinician [phone] Chavo Jose MD Attending Clinician [phone] Rojelio De La Rosa MD Attending Clinician [phone] SHERLEY DIEZ Admitting Clinician Unavailable FERNY_GCBZW_Lalita_S Admitting Clinician UnavailRojelio Brush MD Admitting Clinician [phone] Payers Payer Name Policy Type Policy Number Effective Date Expirati on Date Source [id number] 00:[facility]:00 Problems Condition Name Condition Details Condition Category Status Onset Date Resolution Date Last Treatment Date Treating Clinician Comments Source Elevated blood pressure reading without diagnosis of hypertensi on Elevated blood pressure reading without diagnosis of hypertensi on Disease Active 3-29 00:00: 00 [facility] Cellulitis of submental space Cellulitis of submental space Disease Active 08-25 00:00: 00 [facility] Failure of outpatient treatment Failure of outpatient treatment Disease Active 08-24 00:00: 00 [facility] Missed menses Missed menses Disease Active 10-21 00:00: 00 [facility] History of anxiety History of anxiety Disease Active 10-21 00:00: 00 [facility] Tobacco use disorder Tobacco use disorder Disease [facility] 10-21 00:00: 00 [facility] General counseling and advice for contracept jamison management General counseling and advice for contracept jamison management Disease [facility] 11-01 00:00: 00 Overview: Formattin g of this note might be different from the original. 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[employer] [facility] Generalize d anxiety disorder Generalize d anxiety disorder Disease [facility] 11-01 00:00: 00 [facility] Morbid obesity Morbid obesity Disease [facility] 11-01 00:00: 00 [facility] Allergies, Adverse Reactions, Alerts Allergy Name Allergy Type Status Severity Reaction(s) Onset Date Inactive Date Treating Clinician Comments Source MORPHINE DRUG INGREDI Active Low Anxiety 08-24 00:00: 00 [facility] Morphine Propensi ty to adverse reaction s Active Nausea and/or Vomiting 08-24 00:00: 00 [facility] Social History Social Habit Start Date Stop Date Quantity Comments Source Sexual orientation [facility] History of Social function 2023-01-11 00:00:00 2023-01-11 00:00:00 [facility] Alcohol intake 2023-01-11 00:00:00 2023-01-11 00:00:00 .24 /d [facility] Exposure to SARS-CoV-2 (event) 2021-04-03 00:00:00 2021-05-03 09:51:00 Not sure [facility] Cigarettes smoked current (pack per day) - Reported 2021-05-03 00:00:00 2021-05-03 00:00:00 [facility] Cigarette pack-years 2021-05-03 00:00:00 2021-05-03 00:00:00 [facility] Tobacco use and exposure 2021-05-03 00:00:00 2021-05-03 00:00:00 Smokeless tobacco non-user [facility] Education - What is the highest level of school you have completed or the highest degree you have received? 2020-08-24 00:00:00 2020-08-24 00:00:00 Some college, no degree [facility] Tobacco Comment 2020-08-24 00:00:00 2020-08-24 00:00:00 quit last week [facility] History of tobacco use 2012-02-02 00:00:00 2012-02-02 00:00:00 Cigarette Smoker [facility] Sex Assigned At 1990 00:00:00 1990 00:00:00 [facility] Smoking Status Start Date Stop Date Source Smokes tobacco daily 2021-05-03 00:00:00 [facility] Medications Ordered Medication Name Filled Medication Name Start Date Stop Date Current Medication? Ordering Clinician Indication Dosage Frequency Signature (SIG) Comments Components Source acetaminoph en (TYLENOL) tablet 975 mg 2022-02 21:00: 00 01-11 19:56 :00 No 975mg 975 mg, Oral, ONCE NOW, 1 dose, On Sun01/11/23 at 1500, [facility] ondansetron (ZOFRAN (PF)) injection 4 mg 2022-02 20:00: 00 01-11 19:56 :00 No 4mg 4 mg, Slow IV Push, ONCE, 1 dose, On Sun01/11/23 at 1400, [facility] iopamidol (ISOVUE 370-500 mL) injection 80 mL 2022-02 20:00: 00 01-11 20:00 :00 No [id number] 80mL 80 mL, Intravenou s, ONCE, 1 dose, On Glory 01/11/23 at 1400, Routine [facility] ketorolac (TORADOL) injection 30 mg 2022-02 19:15: 00 01-11 18:46 :00 No 30mg 30 mg, Slow IV Push, ONCE NOW, 1 dose, On Glory 01/11/23 at 1315, MAKAYLA [facility] ampicillin- sulbactam (UNASYN) 3 g in NaCl 0.9% (NS) 100 mL MINI-BAG 2022-02 18:30: 00 01-11 19:52 :00 No 3g 3 g, IV Piggyback, ONCE, 1 dose, On Glory 01/11/23 at 1230, Administer over 30 Minutes, 100 mL
Reas on for Anti-Infec tive: Documented Infection< br>Documen tali Infection Site: HEENT
D uration of Therapy: Other (see Comments) [facility] dexamethaso ne sod phos PF injection 10 mg 2022-02 18:30: 00 01-11 18:47 :00 No 10mg 10 mg, Slow IV Push, ONCE, 1 dose, On Glory 01/11/23 at 1230, 1 mL [facility] diclofenac 75 mg EC tablet 2022-02 00:00: 00 Yes [id number] 75mg Take 1 tablet by mouth in the morning and 1 tablet in the evening. Take with meals. [facility] ondansetron 4 mg disintegrat ing tablet 2022-02 00:00: 00 Yes [id number] 4mg Take 1 tablet by mouth every 8 (eight) hours as needed for Nausea and Vomiting (N/V). [facility] acetaminoph en (TYLENOL ARTHRITIS PAIN) 650 mg CR tablet 2022-02 00:00: 00 Yes [id number] 650mg Take 1 tablet by mouth every 8 (eight) hours as needed for Pain. [facility] amoxicillin -clavulanat e 875-125 mg per tablet 2022-02 2-07 00:00: 00 01-22 05:59 :00 No [id number] 1{tbl} Take 1 tablet by mouth every 12 (twelve) hours for 10 days. [facility] dicyclomine 20 mg tablet 09-25 00:00: 00 05-03 00:00 :00 No [id number] 20mg Take 1 tablet by mouth every 6 (six) hours as needed for Abdominal pain. [facility] ondansetron (ZOFRAN) 4 mg tablet 09-25 00:00: 00 05-03 00:00 :00 No [id number] 4mg Take 1 tablet by mouth every 8 (eight) hours as needed for Nausea and Vomiting (N/V). [facility] omeprazole 20 mg capsule 08-27 00:00: 00 05-03 00:00 :00 No [id number] 20mg Take 1 capsule by mouth daily. [facility] sulfamethox azole-trime thoprim 800-160 mg per tablet 08-26 00:00: 00 05-03 00:00 :00 No [id number] 1{tbl} Take 1 tablet by mouth 2 (two) times daily. [facility] HYDROcodone -acetaminop hen 5-325 mg tablet 08-26 00:00: 00 05-03 00:00 :00 No [id number] 1{tbl} Take 1 tablet by mouth every 6 (six) hours as needed for Pain (scale 4-6) or Pain (scale 7-10). Indication s: acute pain [facility] Immunizations Ordered Immunization Name Filled Immunization Name Date Status Comments Source TDAP 2012-09-25 00:00:00 Completed [facility] Meningococcal Vaccine 2011-01-25 00:00:00 Completed [facility] Rubella 2010-04-01 00:00:00 Completed [facility] Td 2006-02-05 00:00:00 Completed [facility] Varicella (varivax)(chicken pox) 1996-02-06 00:00:00 Completed [facility] Meningococcal Vaccine Unknown Completed [facility] Rubella Unknown Completed [facility] TD, NOS Unknown Completed [facility] Varicella (varivax)(chicken pox) Unknown Completed [facility] TDAP Unknown Completed [facility] Vital Signs Vital Name Observation Time Observation Value Comments S ource Systolic blood pressure 2023-01-11 20:00:00 144 mm[Hg] [facility] Diastolic blood pressure 2023-01-11 20:00:00 100 mm[Hg] [facility] Heart rate 2023-01-11 20:00:00 74 /min [facility] Respiratory rate 2023-01-11 20:00:00 16 /min [facility] Oxygen saturation in Arterial blood by Pulse oximetry 2023-01-11 20:00:00 97 /min [facility] Body temperature 2023-01-11 18:04:00 37.11 Ann-Marie [facility] Body height 2023-01-11 18:04:00 157.5 cm [facility] Body weight 2023-01-11 18:04:00 117.935 kg [facility] BMI 2023-01-11 18:04:00 47.55 kg/m2 [facility] Systolic blood pressure 2021-05-03 14:52:00 144 mm[Hg] [facility] Diastolic blood pressure 2021-05-03 14:52:00 98 mm[Hg] [facility] Heart rate 2021-05-03 14:52:00 75 /[facility] 2021-05-03 14:51:00 36.22 Ann-Marie [facility] Respiratory rate 2021-05-03 14:51:00 20 /min [facility] Body height 2021-05-03 14:51:00 157.5 cm [facility] Body weight 2021-05-03 14:51:00 116.376 kg [facility] BMI 2021-05-03 14:51:00 46.93 kg/m2 [facility] Systolic blood pressure 2021-05-03 14:52:00 144 mm[Hg] [place] [facility] Diastolic blood pressure 2021-05-03 14:52:00 98 mm[Hg] [place] [facility] Heart rate 2021-05-03 14:52:00 75 /min [facility] Body temperature 2021-05-03 14:51:00 36.22 Ann-Marie [facility] Respiratory rate 2021-05-03 14:51:00 20 /min [facility] Body height 2021-05-03 14:51:00 157.5 cm [facility] Body weight 2021-05-03 14:51:00 116.376 kg [facility] BMI 2021-05-03 14:51:00 46.93 kg/m2 [facility] Procedures Procedure Date / Time Performed Performing Clinicia n Source CT SOFT TISSUE NECK W CONTRAST 2023-01-11 19:00:00 Sherley Diez [facility] COMP. METABOLIC PANEL (98151) 2023-01-11 18:45:00 Sherley Diez [facility] CBC WITH DIFF 2023-01-11 18:45:00 Sherley Diez [facility] POCT TEST 2023-01-11 18:39:00 Sravan Diez [facility] CONSENT/REFUSAL FOR DIAGNOSIS AND TREATMENT 2023-01-11 18:00:13 Doctor Unassigned, [place] [facility] LAB ONLY PAP SMEAR-LIQUID BASED 2021-05-03 16:08:00 Jacquie Noriega [facility] PAP SMEAR-LIQUID BASED-CP 2021-05-03 16:08:00 Jacquie Noriega [facility] Encounters Start Date/Time End Date/Time Encounter Type Admission Type Attending Clinicians Care Facility Care Department Encounter ID Source 2020-12-06 17:05:57 Emergency [facility] [id number] [facility] 2023-01-11 12:05:00 2023-01-11 14:34:00 Emergency X SHERLEY DIEZ [facility] ERT [id number] [facility] 2023-01-11 12:05:00 2023-01-11 14:34:00 Emergency Sherley Diez [facility] 1.840.114 350.1.13.10 4.2.7.2.686 [id number] [facility] 2023-01-01 09:15:00 2023-01-01 09:15:00 Outpatient JACQUIE WU [facility] [id number] [facility] 2022-12-02 00:00:00 2022-12-02 00:00:00 Outpatient GC_GCBZW_Ka diyala_S [facility] [id number] [facility] 2021-12-03 12:38:34 2021-12-03 12:38:34 Outpatient [facility] [id number] [place] [place] 2021-07-05 13:00:00 2021-07-05 13:00:00 Outpatient JOSÉ PURVIS [facility] [id number] [facility] 2021-06-03 13:30:00 2021-06-03 13:30:00 Outpatient JOSÉ PURVIS [facility] [id number] [facility] 2021-05-23 00:00:00 2021-05-23 00:00:00 Orders Only Doctor Unassigned, [place] [facility] .840.114 350.1.13.10 4.2.7.2.686 [id number] [facility] 2021-05-19 00:00:00 2021-05-19 00:00:00 Telephone Jacquie Noriega [facility] [employer] [facility] 1.840.114 350.1.13.10 4.2.7.2.686 [id number] [facility] 2021-05-03 09:30:00 2021-05-03 10:51:04 Outpatient JACQUIE WU [facility] [id number] [facility] 2021-05-03 09:30:00 2021-05-03 10:51:04 Office Visit Jacquie Noriega [employer] [facility] 1..114 350.1.13.10 4.2.7.2.686 [id number] [facility] 2021-05-03 09:30:00 2021-05-03 10:51:04 Outpatient R JACQUIE NORIEGA [facility] [id number] [facility] 2021-05-03 09:30:00 2021-05-03 10:51:04 Outpatient R JACQUIE NORIEGA [facility] [id number] [facility] 2021-05-03 09:30:00 2021-05-03 10:51:04 Office Visit Jacquie Noriega [facility] [employer] [facility] 1..114 350.1.13.10 4.2.7.2.686 [id number] [facility] 2021-05-03 00:00:00 2021-05-03 00:00:00 Orders Only Doctor Unassigned, [place] [facility] 1..114 350.1.13.10 4.2.7.2.686 [id number] [facility] 2021-05-03 00:00:00 2021-05-03 00:00:00 Telephone Jacquie Noriega [facility] [employer] [facility] 1..114 350.1.13.10 4.2.7.2.686 [id number] [facility] 2021-05-03 00:00:00 2021-05-03 00:00:00 Telephone Jacquie Noriega [facility] [employer] [facility] 1..114 350.1.13.10 4.2.7.2.686 [id number] [facility] 2020-09-24 23:09:00 2020-09-25 04:02:00 Emergency Geraldine Galvan [facility] 1.2.840.114 350.1.13.10 4.2.7.2.686 [id number] [facility] 2020-09-24 23:09:00 2020-09-25 04:02:00 Emergency Geraldine Galvan [facility] 1.2.840.114 350.1.13.10 4.2.7.2.686 [id number] 2020-09-02 15:30:00 2020-09-02 23:59:00 Hospital Encounter Radiology [facility] 1.2.840.114 350.1.13.10 4.2.7.2.686 [id number] [facility] 2020-09-02 15:30:00 2020-09-02 23:59:00 Hospital Encounter Radiology [facility] 1.2.840.114 350.1.13.10 4.2.7.2.686 [id number] 2020-09-02 00:00:00 2020-09-02 00:00:00 Outpatient R RADIOLOGY [facility] [id number] [facility] 2020-08-27 21:50:00 2020-08-27 23:10:00 Emergency Geraldine Galvan [facility] 1.2.840.114 350.1.13.10 4.2.7.2.686 [id number] [facility] 2020-08-27 21:50:00 2020-08-27 23:10:00 Emergency Geraldine Galvan [facility] 1.2.840.114 350.1.13.10 4.2.7.2.686 [id number] 2020-08-27 21:50:00 2020-08-27 21:50:00 Emergency X GERALDINE GALVAN [facility] ERT [id number] [facility] 2020-08-27 00:00:00 2020-08-27 00:00:00 Transition of Care Prisca Dinh 1.2.840.114 350.1.13.10 4.2.7.2.686 [id number] [facility] 2020-08-27 00:00:00 2020-08-27 00:00:00 Transition of Care Prisca Dinh 1.2.840.114 350.1.13.10 4.2.7.2.686 [id number] 2020-08-24 14:12:00 2020-08-26 13:37:00 Hospital Encounter Chavo Jose [facility] 1.2.840.114 350.1.13.10 4.2.7.2.686 [id number] 2020-08-24 14:12:00 2020-08-26 13:37:00 Hospital Encounter Chavo Jose [facility] 1.2.840.114 350.1.13.10 4.2.7.2.686 [id number] [facility] 2020-08-24 13:52:00 2020-08-24 13:52:00 Emergency X [facility] ERT [id number] [facility] 2020-08-24 00:00:00 2020-08-24 00:00:00 Orders Only Doctor Unassigned, [place] [facility] 1.2.840.114 350.1.13.10 4.2.7.2.686 [id number] 2020-08-24 00:00:00 2020-08-24 00:00:00 Orders Only Doctor Unassigned, [place] [facility] 1.2.840.114 350.1.13.10 4.2.7.2.686 [id number] [facility] Results Test Description Test Time Test Comments Results Result Co mments Source [facility] WITH [id number] 19:29:18* Test Item Value Reference Range Interpretation [...] 33.2 g/dL 31.6-35.1 RDW-SD (test code = 34917-7) 38.3 fL 39.0-49.9 L RDW-CV (test code = 788-0) 12.6 % 12.0-15.5 PLT (test code = 777-3) 345 See_Comment [Automated messa ge] The system which generated this result transmitted reference range: 166 - 358 10*3/?L. The reference range was not used to interpret this result as normal/abnormal. MPV (test code = 90808-8) 8.6 fL 9.5-12.9 L NRBC/100 WBC (test code = 4394818748) 0.0 See_Comment [Automated me ssage] The system which generated this result transmitted reference range: 0.0 - 10.0 /100 WBCs. The reference range was not used to interpret this result as normal/abnormal. NRBC x10^3 (test code = 2886923839) See_Comment [Automated messa ge] The system which generated this result transmitted reference range: 10*3/?L. The reference range was not used to interpret this result as normal/abnormal. GRAN MAT (NEUT) % (test code = 770-8) 70.2 % IMM GRAN % (test code = 0389003584) 0.40 % LYMPH % (test code = 736-9) 21.9 % MONO % (test code = 5905-5) 4.4 % EOS % (test code = 713-8) 2.6 % BASO % (test code = 706-2) 0.5 % GRAN MAT x10^3(ANC) (test code = 2902765907) 5.47 10*3/uL 1.88-7.09 IMM GRAN x10^3 (test code = 4364671298) 0.03 10*3/uL 0.00-0.06 LYMPH x10^3 (test code = 731-0) 1.70 10*3/uL 1.32-3.29 MONO x10^3 (test code = 742-7) 0.34 10*3/uL 0.33-0.92 EOS x10^3 (test code = 711-2) 0.20 10*3/uL 0.03-0.39 BASO x10^3 (test code = 704-7) 0.04 10*3/uL 0.01-0.07 Lab Interpretation (test code = 93852-0) [facility]normal [id number]00* Test Item Value Reference Range Interpretation Comme nts POCT PREG (test code = 1605) Negative On board controls acceptable with C Line (test code = 3574) Yes POCT PREG LOT # (test code = 3575) [id number] POCT PREG TEST DATE ( test code = 3576) 04/15/2024 Lab Interpretation (test cod e = 86581-7) Normal [facility]
--- NOTE | 2023-06-14 10:20 | RAD REPORT ---
EXAM DESCRIPTION: CT - Head Brain Wo Cont - 06/14/2023 9:57 am CLINICAL HISTORY: Dizziness COMPARISON: 2022 TECHNIQUE: Computed axial tomography of the head was obtained. IV contrast was not requested. All CT scans are performed using dose optimization technique as appropriate and may include automated exposure control or mA/KV adjustment according to patient size. FINDINGS: An intracranial bleed is not seen The ventricles are normal in caliber No extra-axial fluid collection is noted. Linear low density right occipital lobe represents artifact from the patient'searring. No significant hypodensity within the brain is visualized. Fluid within the sinuses/ mastoids is not seen. IMPRESSION: No acute intracranial abnormality is seen If patient's symptoms persist MRI of the brain would be recommended
[2023-06-14] MEDS ORDERED: NA CHLORIDE 0.9% 1,000 ML ONE (10:26)
[2023-06-14] MEDS ORDERED: ONDANSETRON 4 MG/2 ML VIAL ONE (10:57)
[2023-06-14 11:06] LABS: Absolute Basophils 0.1 K/uL (0-0.5); Absolute Eosinophils 0.1 K/uL (0-0.5); Absolute Monocytes 0.4 K/uL (0.1-1.3); Absolute Neutrophil 4.1 K/uL (1.8-8.0); Basophils % 0.9 % (0-1.3); Hematocrit 36.9 % (36.0-45.0); Hemoglobin 12.1 g/dL (12.0-15.0); Lymphocytes % 29.4 % (15.3-44.8); MCH 26.1 pg (27.0-35.0); MCHC 32.7 g/dL (32.0-36.0); MCV 79.7 fL (80-100); MPV 6.7 fL (7.6-11.3); Monocytes % 6.1 % (3.3-12.3); Neutrophils % 61.6 % (41.7-73.7); Platelets 360 thou/uL (152-406); RBC Red Blood Cell Count 4.63 M/uL (3.86-4.86); Red Cell Distribution Width 14.2 % (12.1-15.2)
[2023-06-14 11:10] LABS: Specific Gravity 1.029 (1.005-1.030); Sqamous Epithelial <5 /HPF (None Seen); Urine Bacteria None Seen /HPF (<20); Urine Bilirubin NEGATIVE (Negative); Urine Blood Negative (Negative); Urine Clarity Turbid (Clear); Urine Color Yellow (Yellow); Urine Culture Reflex Order NOT NEEDED; Urine Glucose NEGATIVE (Negative); Urine Ketones NEGATIVE (Negative); Urine Microscopic Reflex YN ORDER UMIC; Urine Mucus 4+ /HPF (None Seen); Urine Nitrite NEGATIVE (Negative); Urine Protein TRACE (Negative); Urine RBC <5 /HPF (None Seen); Urine Urobilinogen Normal (Normal); Urine WBC <5 /HPF (<5); Urine pH 5.5 (5.0-7.0)
[2023-06-14 11:11] LABS: Specific Gravity 1.029 (1.005-1.030)
[2023-06-14 11:14] LABS: PT Prothrombin Time 13.7 SECONDS (9.5-12.5); Protime INR 1.25
--- NOTE | 2023-06-14 11:16 | RAD REPORT ---
EXAM DESCRIPTION: Lucita Single View06/14/2023 10:56 am CLINICAL HISTORY: cough COMPARISON: 2022 FINDINGS: The lungs appear clear of acute infiltrate. The heart is normal size IMPRESSION: No acute abnormalities displayed
[2023-06-14 11:26] LABS: ALT/SGPT 18 U/L (13-56); Albumin 3.5 g/dL (3.4-5.0); Alkaline Phosphatase 69 U/L (45-117); Anion Gap 5.5 mEq/L (5.0-15.0); BUN Blood Urea Nitrogen 16 mg/dL (7-18); Bicarbonate 29 mEq/L (21-32); Bilirubin Direct 0.2 mg/dL (0-0.2); Bilirubin Indirect, Calculated 0.5 mg/dL (0.2-0.8); Bilirubin Total 0.7 mg/dL (0.2-1.0); Globulin 3.4 g/dL (2.3-3.5); Glomerular Filtration Rate 117 ml/min (=/>90); Glucose Level 97 mg/dL (74-106); Magnesium 2.4 mg/dL (1.6-2.4); NT PRO-BNP 89 pg/mL (<125); Potassium 3.5 mEq/L (3.5-5.1); Protein, Total 6.9 g/dL (6.4-8.2); Sodium Level 140 mEq/L (136-145); Troponin High Sensitivity 3.6 pg/mL (<58.9)
[2023-06-14 11:28] LABS: AST/SGOT < 10 U/L (15-37)
--- NOTE | 2023-06-14 12:24 | EDPHYS ---
Physician Documentation [facility] Name: Omayra Parra Age: 32 yrs Sex: Female : 1990 Arrival Date: 06/14/2023 Time: 09:36 Bed 6 Private MD: ED Physician Jasbir Coleman HPI: 06/13 12:19 This 32 yrs old Female presents to ER via Ambulatory with complaints of Vision Problem, ren Weakness. 12:19 The patient presents to the emergency department with weakness of the entire body, ren generalized weakness. Onset: The symptoms/episode began/occurred just prior to arrival, this morning. 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 - Infectious Disease History:: Denies. - Social history:: Smoking status: Patient reports the use of cigarette tobacco products. ROS: 12:20 Constitutional: Negative for fever, chills, and weight loss, Eyes: Negative for injury, ren pain, redness, and discharge, ENT: Negative for injury, pain, and discharge, Neck: Negative for injury, pain, and swelling, Cardiovascular: Negative for chest pain, palpitations, and edema, Respiratory: Negative for shortness of breath, cough, wheezing, and pleuritic chest pain, Abdomen/GI: Negative for abdominal pain, nausea, vomiting, diarrhea, and constipation, Back: Negative for injury and pain, : Negative for injury, bleeding, discharge, and swelling, MS/Extremity: Negative for injury and deformity, Skin: Negative for injury, rash, and discoloration, Psych: Negative for depression, anxiety, suicide ideation, homicidal ideation, and hallucinations, Allergy/Immunology: Negative for hives, rash, and allergies, Endocrine: Negative for neck swelling, polydipsia, polyuria, polyphagia, and marked weight changes, Hematologic/Lymphatic: Negative for swollen nodes, abnormal bleeding, and unusual bruising, 12:20 Neuro: Positive for near syncope, weakness, Exam: 12:20 Constitutional: This is a well developed, well nourished patient who is awake, alert, ren and in no acute distress. Head/Face: Normocephalic, atraumatic. Eyes: Pupils equal round and reactive to light, extra-ocular motions intact. Lids and lashes normal. Conjunctiva and sclera are non-icteric and not injected. Cornea within normal limits. Periorbital areas with no swelling, redness, or edema. ENT: Nares patent. No nasal discharge, no septal abnormalities noted. Tympanic membranes are normal and external auditory canals are clear. Oropharynx with no redness, swelling, or masses, exudates, or evidence of obstruction, uvula midline. Mucous membranes moist. Neck: Trachea midline, no thyromegaly or masses palpated, and no cervical lymphadenopathy. Supple, full range of motion without nuchal rigidity, or vertebral point tenderness. No Meningismus. Chest/axilla: Normal chest wall appearance and motion. Nontender with no deformity. No lesions are appreciated. Cardiovascular: Regular rate and rhythm with a normal S1 and S2. No gallops, murmurs, or rubs. Normal PMI, no JVD. No pulse deficits. Respiratory: Lungs have equal breath sounds bilaterally, clear to auscultation and percussion. No rales, rhonchi or wheezes noted. No increased work of breathing, no retractions or nasal flaring. Abdomen/GI: Soft, non-tender, with normal bowel sounds. No distension or tympany. No guarding or rebound. No evidence of tenderness throughout. Back: No spinal tenderness. No costovertebral tenderness. Full range of motion. Skin: Warm, dry with normal turgor. Normal color with no rashes, no lesions, and no evidence of cellulitis. MS/ Extremity: Pulses equal, no cyanosis. Neurovascular intact. Full, normal range of motion. Neuro: Awake and alert, GCS 15, oriented to person, place, time, and situation. Cranial nerves II-XII grossly intact. Motor strength 5/5 in all extremities. Sensory grossly intact. Cerebellar exam normal. Normal gait. Psych: Awake, alert, with orientation to person, place and time. Behavior, mood, and affect are within normal limits. 12:20 ECG was reviewed by the Attending Physician. Vital Signs: 09:49 BP 126 / 76; Pulse 91; Resp 18; Temp 97.3; Pulse Ox 99% on R/A; Weight 69.4 kg; Height ph 5 ft. 2 in. ; 11:48 BP 113 / 77; Pulse 66; Resp 18; Pulse Ox 100% on R/A; mb9 09:49 Body Mass Index 27.98 (69.40 kg, 157.48 cm) ph MDM: 09:40 Patient medically screened. [facility] 12:22 Differential Diagnosis: aortic aneurysm, cardiac arrhythmia, cerebrovascular accident, ren emotional response, GI bleed, idiopathic syncope, , pseudo seizure, seizure, vasovagal episode. Data reviewed: vital signs, nurses notes, EMS record, lab test result(s), EKG, radiologic studies, CT scan, plain films. Consideration of Admission/Observation Escalation of care including admission/observation considered. I considered the following discharge prescriptions or medication management in the emergency department Medications were administered in the Emergency Department. See MAR. Test considered but Not performed: MRI: no mri brain. Care significantly affected by the following chronic conditions: Obesity, anxiety, high chlesterol. posc. 06/13 10:21 Order name: Basic Metabolic Panel; Complete Time: 12:16 [facility] 06/13 10:21 Order name: CBC with Diff; Complete Time: 12:16 [facility] 06/13 10:21 Order name: LFT's; Complete Time: 12:16 [facility] 06/13 10:21 Order name: Magnesium; Complete Time: 12:16 [facility] 06/13 10:21 Order name: NT PRO-BNP; Complete Time: 12:16 [facility] 06/13 10:21 Order name: PT-INR; Complete Time: 12:16 [facility] 06/13 10:21 Order name: Troponin HS; Complete Time: 12:16 [facility] 06/13 10:21 Order name: Urinalysis w/ reflexes; Complete Time: 12:16 [facility] 06/13 10:21 Order name: PREGU; Complete Time: 12:16 [facility] 06/13 09:41 Order name: CT Head Brain wo Cont; Complete Time: 12:16 [facility] 06/13 10:21 Order name: XRAY Chest (1 view); Complete Time: 12:16 [facility] 06/13 10:21 Order name: Cardiac monitoring; Complete Time: 10:49 [facility] 06/13 10:21 Order name: EKG - Nurse/Tech; Complete Time: 10:49 [facility] 06/13 10:21 Order name: IV Saline Lock; Complete Time: 10:59 [facility] 06/13 10:21 Order name: Labs collected and sent; Complete Time: 10:59 [facility] 06/13 10:21 Order name: O2 Per Protocol; Complete Time: 10:34 [facility] 06/13 10:21 Order name: O2 Sat Monitoring; Complete Time: : [facility] 06/13 12:21 Order name: Orthostatics; Complete Time: 12:23 ren EC:20 Rate is 62 beats/min. Rhythm is regular. QRS [place] is Normal. ME interval is normal. QRS ren interval is normal. QT interval is normal. No Q waves. T waves are Normal. No ST changes noted. Clinical impression: NSR w/ Non-specific ST/T Changes. Administered Medications: 10:59 Drug: NS 0.9% IV 1000 ml IV at 1 bolus Per protocol; 1000 mL bolus Route: IV; Rate: 1 mb9 bolus; Site: right antecubital; 12:29 Follow up: Response: No adverse reaction; IV Status: Completed infusion mb9 10:59 Drug: Ondansetron IVP 4 mg IVP once; over 2 minutes Route: IVP; Site: right antecubital;mb9 11:47 Follow up: Response: No adverse reaction mb9 Disposition Summary: 06/14/23 12:24 Discharge Ordered Notes: Location: Home ren Problem: new ren Symptoms: have improved ren Condition: Stable ren Diagnosis - Syncope Near ren - Weakness ren Followup: ren - With: Private Physician - When: 2 - 3 days - Reason: Recheck today's complaints, Continuance of care, Re-evaluation by your physician Discharge Instructions: - Discharge Summary Sheet ren - Near-Syncope ren - Weakness ren - Near-Syncope, Zuur-zq-[id number] ren - Syncope, Zehq-mi-Dfjc ren - Weakness, Zihp-to-Wzmv ren - Deconditioning ren Forms: - Medication Reconciliation Form ren - Antibiotic Education ren - Prescription Opioid Use ren - Patient Portal Instructions ern - Leadership Thank You Letter ren - Work release form mb9 Signatures: Dispatcher [employer] Jasbir Nguyen MD MD cha Hall, Patricia RN RN Rosa Garcia RN RN mb9 Corrections: (The following items were deleted from the chart) 10:22 10:22 BASIC METABOLIC PANEL+C.LAB.BRZ ordered. EDMS EDMS 10:22 10:22 CBC+H.LAB.BRZ ordered. EDMS EDMS 10:22 10:22 HEPATIC FUNCTION+C.LAB.BRZ ordered. EDMS EDMS 10:22 10:22 MAGNESIUM+C.LAB.BRZ ordered. EDMS EDMS 10: 10:22 PROBNP+C.LAB.BRZ ordered. EDMS EDMS 10: 10:22 PROTIME (+INR)+COAG.LAB.BRZ ordered. EDMS EDMS 10: 10:22 Troponin High Sensitivity+C.LAB.BRZ ordered. EDMS EDMS 10:22 10:22 Urinalysis+U.LAB.BRZ ordered. EDMS EDMS 10:22 10:22 Test, Urine+UC.LAB.BRZ ordered. EDMS EDMS
--- NOTE | 2023-06-14 12:24 | ER ---
Nurse's Notes [facility] Name: Omayra Parra Age: 32 yrs Sex: Female : 1990 Arrival Date: 06/14/2023 Time: 09:36 Bed 6 Private MD: Diagnosis: Syncope Near;Weakness Presentation: 06/13 09:49 Chief complaint: Patient states: "Hot flashes and tunnel vision" at work this morning, ph also reports generalized weakness and nausea. Coronavirus screen: Vaccine status: Patient reports receiving the 2nd dose of the covid vaccine. Ebola Screen: No symptoms or risks identified at this time. Initial Sepsis Screen: Does the patient meet any 2 criteria? No. Patient's initial sepsis screen is negative. Does the patient have a suspected source of infection? No. Patient's initial sepsis screen is negative. Risk Assessment: Do you want to hurt yourself or someone else? Patient reports no desire to harm self or others. Onset of symptoms was June 14, 2023. 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 - Infectious Disease History:: Denies. - Social history:: Smoking status: Patient reports the use of cigarette tobacco products. Screenin:52 [facility] ED Fall Risk Assessment (Adult) History of falling in the last 3 months, mb9 including since admission No falls in past 3 months (0 pts) Confusion or Disorientation No (0 pts) Intoxicated or Sedated No (0 pts) Impaired Gait No (0 pts) Mobility Assist Device Used No (0 pt) Altered Elimination No (0 pt) Score/Fall Risk Level 0 - 2 = Low Risk Oriented to surroundings, Maintained a safe environment, Educated pt \\T\\ family on fall prevention, incl call for assistance when getting out of bed. Abuse screen: Denies threats or abuse. Nutritional screening: No deficits noted. Tuberculosis screening: No symptoms or risk factors identified. Assessment: 09:51 General: Appears in no apparent distress. Behavior is calm, cooperative. Pain: mb9 Complains of pain in head Pain does not radiate. Pain currently is 2 out of 10 on a pain scale. Quality of pain is described as throbbing, Pain began gradually, Is intermittent. 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 Gait is steady, Speech is normal, Facial symmetry appears normal, Pupils are PERRLA, Intact Reports dizziness, headache weakness in right arm, left arm, right leg and left leg. Cardiovascular: Heart tones S1 S2 present Patient's skin is warm and dry. Respiratory: Airway is patent Respiratory effort is even, unlabored, Respiratory pattern is regular, symmetrical. GI: Abdomen is round non-distended. GI: Reports nausea. : No signs and/or symptoms were reported regarding the genitourinary system. EENT: No signs and/or symptoms were reported regarding the EENT system. Derm: Skin is pink, warm \\T\\ dry. Musculoskeletal: Range of motion: intact in all extremities. 11:48 Reassessment: No changes from previously documented assessment. Patient and/or family mb9 updated on plan of care and expected duration. Pain level reassessed. Patient is alert, oriented x 3, equal unlabored respirations, skin warm/dry/pink. Vital Signs: 09:49 BP 126 / 76; Pulse 91; Resp 18; Temp 97.3; Pulse Ox 99% on R/A; Weight 69.4 kg; Height ph 5 ft. 2 in. ; 11:48 BP 113 / 77; Pulse 66; Resp 18; Pulse Ox 100% on R/A; mb9 09:49 Body Mass Index 27.98 (69.40 kg, 157.48 cm) ph ED Course: 09:39 Patient arrived in ED. [email or web address] 09:39 Jasbir Coleman MD is Attending Physician. ren 09:44 Rosa Dean RN is Primary Nurse. mb9 09:50 Triage completed. ph 09:51 Arm band placed on Patient placed in an exam room, on a stretcher. ph 09:53 Placed in gown. Bed in low position. Call light in reach. Side rails up X 1. Provided mb9 Education on: press call light if needing anything. Client placed on continuous cardiac and pulse oximetry monitoring. NIBP monitoring applied. medical case worker on. Door closed. Noise minimized. Warm blanket given. 09:59 CT Head Brain wo Cont In Process Unspecified. EDMS 10:56 EKG done, by ED staff, reviewed by Jasbir Coleman MD. mb9 10:57 XRAY Chest (1 view) In Process Unspecified. EDMS 10:59 PREGU Sent. mb9 10:59 Urinalysis w/ reflexes Sent. mb9 10:59 Basic Metabolic Panel Sent. mb9 10:59 CBC with Diff Sent. mb9 10:59 LFT's Sent. mb9 10:59 Initial lab(s) drawn, by ut, sent to lab. Urine collected: clean catch specimen, clear. mb9 Inserted saline lock: 22 gauge in right antecubital area, using aseptic technique. Blood collected. 11:00 Patient requests pain medication. mb9 12:28 No provider procedures requiring assistance completed. IV discontinued, intact, mb9 bleeding controlled, No redness/swelling at site. Pressure dressing applied. Administered Medications: 10:59 Drug: NS 0.9% IV 1000 ml IV at 1 bolus Per protocol; 1000 mL bolus Route: IV; Rate: 1 mb9 bolus; Site: right antecubital; 12:29 Follow up: Response: No adverse reaction; IV Status: Completed infusion mb9 10:59 Drug: Ondansetron IVP 4 mg IVP once; over 2 minutes Route: IVP; Site: right antecubital;mb9 11:47 Follow up: Response: No adverse reaction mb9 Medication: 09:53 VIS not applicable for this client. mb9 Outcome: 12:24 Discharge ordered by MD. mcclure 12:37 Discharged to home ambulatory, mb9 12:37 Condition: stable 12:37 Discharge instructions given to patient, Instructed on discharge instructions, follow up and referral plans. Demonstrated understanding of instructions, follow-up care, 12:37 Patient left the ED. mb9 Signatures: Dispatcher [employer] Jasbir Nguyen MD MD cha Hall, Patricia, RN RN so Headley, Oralia [email or web address] Dianne, Rosa Gray RN RN mb9
[2023-06-14 12:56] VITALS: BP 113/77; TEMP 97.3; O2SAT 100
--- NOTE | 2023-06-18 13:33 | EKG ---
Test Date: 2023-06-14 Test Time: 10:40:48 Electronic Drafter: Leann Sanches MEASUREMENT RESULTS: Intervals: Rate: 62 LA: 136 QRSD: 82 QT: 496 QTc: 503 [place]: P: 25 LA: 136 QRS: 73 T: 46 INTERPRETIVE STATEMENTS: Sinus rhythm with occasional premature ventricular complexes and fusion complexes Nonspecific T wave abnormality Prolonged QT Abnormal ECG Compared to ECG 07/09/2022 10:30:02 Fusion complex(es) now present Ventricular premature complex(es) now present Prolonged QT interval now present T-wave abnormality still present Electronically Signed On 06-18-23 13:20:40 CDT by Cheng Pierre
== END 2023-06-14 12:37 | disposition home or self-care (01) ==
LOC: ER 09:36
DX: R55 Syncope and collapse (principal); R53.1 Weakness; Z72.0 Tobacco use; Z88.5 Allergy status to narcotic agent
CPT/HCPCS: 96361; 85025; 81001; 80048; 36415; 83735; 81025; 85610; 80076; 84484; 83880; 70450; 71045; 96374; 99285; J2405; J7030; 93005

== ENCOUNTER 2023-11-26 08:33 | Emergency (ER) | payer OTHER ==
--- OUTSIDE RECORDS SUMMARY | 2023-11-26 08:36 | XMS REPORT | Continuity of Care Document ---
Author Name Unknown Address [address] [facility]. 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 Phone ACRMELINA HANLEY Primary Care Physician Unavailab SHERLEY Gabriel Attending Clinician Unavailable Sherley Diez MD Attending Clinician [phone] JACQUIE NORIEGA Attending Clinician Unavail able [email or web address]_S Attending Clinician UnavailJOSÉ Gonsalez Attending Clinician Unavailable Doctor Unassigned, Kinde Attending Clinician U navailable Leann Jacquie WHITMAN Attending Clinician + Geraldine Galvan MD Attending Clinician [phone] Radiology Attending Clinician Unavailable RADIOLOGY Attending Clinician Unavailable GERALDINE GALVAN Attending Clinician Unavailable Prisca Dinh RN Attending Clinician [phone] Chavo Jose MD Attending Clinician [phone] Rojelio De La Rosa MD Attending Clinician [phone] SHERLEY DIEZ Admitting Clinician Unavailable [email or web address]_S Admitting Clinician UnavailRojelio Brush MD Admitting Clinician [phone] Payers Payer Name Policy Type Policy Number Effective Date Expirati on Date Source [facility] [id number] 2021 00:00:00 Problems Condition Name Condition Details Condition Category Status Onset Date Resolution Date Last Treatment Date Treating Clinician Comments Source Elevated blood pressure reading without diagnosis of hypertensi on Elevated blood pressure reading without diagnosis of hypertensi on Disease Active 3-29 00:00: 00 [facility] Cellulitis of submental space Cellulitis of submental space Disease Active 08-25 00:00: 00 [facility] Failure of outpatient treatment Failure of outpatient treatment Disease Active 08-24 00:00: 00 [facility] Missed menses Missed menses Disease Active 10-21 00:00: 00 [facility] History of anxiety History of anxiety Disease Active 10-21 00:00: 00 [facility] Tobacco use disorder Tobacco use disorder Disease Recurre txe 10-21 00:00: 00 [facility] General counseling and advice for contracept jamison management General counseling and advice for contracept jamison management Disease Recurre [facility] 11-01 00:00: 00 Overview: Formattin g of this note might be different from the original. 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 [facility] Generalize d anxiety disorder Generalize d anxiety disorder Disease Recurre [facility] 11-01 00:00: 00 [facility] Morbid obesity Morbid obesity Disease Recurre [facility] 11-01 00:00: 00 [facility] Allergies, Adverse Reactions, Alerts Allergy Name Allergy Type Status Severity Reaction(s) Onset Date Inactive Date Treating Clinician Comments Source MORPHINE DRUG INGREDI Active Low Anxiety 08-24 00:00: 00 [facility] Morphine Propensi ty to adverse reaction s Active Nausea and/or Vomiting 08-24 00:00: 00 [facility] Social History Social Habit Start Date Stop Date Quantity Comments Source [facility] of Social function 2023-01-11 00:00:00 2023-01-11 00:00:00 [facility] Alcohol intake 2023-01-11 00:00:00 2023-01-11 00:00:00 .24 /d [facility] Exposure to SARS-CoV-2 (event) 2021-04-03 00:00:00 2021-05-03 09:51:00 Not sure [facility] Cigarettes smoked current (pack per day) - Reported 2021-05-03 00:00:00 2021-05-03 00:00:00 [facility] Cigarette pack-years 2021-05-03 00:00:00 2021-05-03 00:00:00 [facility] Tobacco use and exposure 2021-05-03 00:00:00 2021-05-03 00:00:00 Smokeless tobacco non-user [facility] Education - What is the highest level of school you have completed or the highest degree you have received? 2020-08-24 00:00:00 2020-08-24 00:00:00 Some college, no degree [facility] Tobacco Comment 2020-08-24 00:00:00 2020-08-24 00:00:00 quit last week [facility] History of tobacco use 2012-02-02 00:00:00 2012-02-02 00:00:00 Cigarette Smoker [facility] Sex Ass[birth year] At 1990 00:00:00 1990 00:00:00 [facility] Smoking Status Start Date Stop Date Source Smokes tobacco daily 2021-05-03 00:00:00 [facility] Medications Ordered Medication Name Filled Medication Name Start Date Stop Date Current Medication? Ordering Clinician Indication Dosage Frequency Signature (SIG) Comments Components Source acetaminoph en (TYLENOL) tablet 975 mg 2022-02 21:00: 00 01-11 19:56 :00 No 975mg 975 mg, Oral, ONCE NOW, 1 dose, On Sun01/11/23 at 1500, [facility] ondansetron (ZOFRAN (PF)) injection 4 mg 2022-02 20:00: 00 01-11 19:56 :00 No 4mg 4 mg, Slow IV Push, ONCE, 1 dose, On Sun01/11/23 at 1400, [facility] iopamidol (ISOVUE 370-500 mL) injection 80 mL 2022-02 20:00: 00 01-11 20:00 :00 No [id number] 80mL 80 mL, Intravenou s, ONCE, 1 dose, On Glory 01/11/23 at 1400, Routine [facility] ketorolac (TORADOL) injection 30 mg 2022-02 19:15: 00 01-11 18:46 :00 No 30mg 30 mg, Slow IV Push, ONCE NOW, 1 dose, On Glory 01/11/23 at 1315, MAKAYLA [facility] ampicillin- sulbactam (UNASYN) 3 g in NaCl 0.9% (NS) 100 mL MINI-BAG 2022-02 18:30: 00 01-11 19:52 :00 No 3g 3 g, IV Piggyback, ONCE, 1 dose, On Glory 01/11/23 at 1230, Administer over 30 Minutes, 100 mL
Reas on for Anti-Infec tive: Documented Infection< br>Documen tali Infection Site: HEENT
D uration of Therapy: Other (see Comments) [facility] dexamethaso ne sod phos PF injection 10 mg 2022-02 18:30: 00 01-11 18:47 :00 No 10mg 10 mg, Slow IV Push, ONCE, 1 dose, On Glory 01/11/23 at 1230, 1 mL [facility] diclofenac 75 mg EC tablet 2022-02 00:00: 00 Yes [id number] 75mg Take 1 tablet by mouth in the morning and 1 tablet in the evening. Take with meals. [facility] ondansetron 4 mg disintegrat ing tablet 2022-02 00:00: 00 Yes [id number] 4mg Take 1 tablet by mouth every 8 (eight) hours as needed for Nausea and Vomiting (N/V). [facility] acetaminoph en (TYLENOL ARTHRITIS PAIN) 650 mg CR tablet 2022-02 00:00: 00 Yes [id number] 650mg Take 1 tablet by mouth every 8 (eight) hours as needed for Pain. [facility] amoxicillin -clavulanat e 875-125 mg per tablet 2022-02 2-07 00:00: 00 01-22 05:59 :00 No [id number] 1{tbl} Take 1 tablet by mouth every 12 (twelve) hours for 10 days. [facility] dicyclomine 20 mg tablet 09-25 00:00: 00 05-03 00:00 :00 No [id number] 20mg Take 1 tablet by mouth every 6 (six) hours as needed for Abdominal pain. [facility] ondansetron (ZOFRAN) 4 mg tablet 09-25 00:00: 00 05-03 00:00 :00 No [id number] 4mg Take 1 tablet by mouth every 8 (eight) hours as needed for Nausea and Vomiting (N/V). [facility] omeprazole 20 mg capsule 08-27 00:00: 00 05-03 00:00 :00 No [id number] 20mg Take 1 capsule by mouth daily. [facility] sulfamethox azole-trime thoprim 800-160 mg per tablet 08-26 00:00: 00 05-03 00:00 :00 No [id number] 1{tbl} Take 1 tablet by mouth 2 (two) times daily. [facility] HYDROcodone -acetaminop hen 5-325 mg tablet 08-26 00:00: 00 05-03 00:00 :00 No [id number] 1{tbl} Take 1 tablet by mouth every 6 (six) hours as needed for Pain (scale 4-6) or Pain (scale 7-10). Indication s: acute pain [facility] Immunizations Ordered Immunization Name Filled Immunization Name Date Status Comments Source TDAP 2012-09-25 00:00:00 Completed [facility] Meningococcal Vaccine 2011-01-25 00:00:00 Completed [facility] Rubella 2010-04-01 00:00:00 Completed [facility] Td 2006-02-05 00:00:00 Completed [facility] Varicella (varivax)(chicken pox) 1996-02-06 00:00:00 Completed [facility] Meningococcal Vaccine Unknown Completed [facility] Rubella Unknown Completed [facility] TD, NOS Unknown Completed [facility] Varicella (varivax)(chicken pox) Unknown Completed [facility] TDAP Unknown Completed [facility] Vital Signs Vital Name Observation Time Observation Value Comments S ource Systolic blood pressure 2023-01-11 20:00:00 144 mm[Hg] [facility] Diastolic blood pressure 2023-01-11 20:00:00 100 mm[Hg] [facility] Heart rate 2023-01-11 20:00:00 74 /min [facility] Respiratory rate 2023-01-11 20:00:00 16 /min [facility] Oxygen saturation in Arterial blood by Pulse oximetry 2023-01-11 20:00:00 97 /min [facility] Body temperature 2023-01-11 18:04:00 37.11 Ann-Marie [facility] Body height 2023-01-11 18:04:00 157.5 cm [facility] Body weight 2023-01-11 18:04:00 117.935 kg [facility] BMI 2023-01-11 18:04:00 47.55 kg/m2 [facility] Systolic blood pressure 2021-05-03 14:52:00 144 mm[Hg] [facility] Diastolic blood pressure 2021-05-03 14:52:00 98 mm[Hg] [facility] Heart rate 2021-05-03 14:52:00 75 /min [facility] Body temperature 2021-05-03 14:51:00 36.22 Ann[facility]Marie [facility] Respiratory rate 2021-05-03 14:51:00 20 /min [facility] Body height 2021-05-03 14:51:00 157.5 cm [facility] Body weight 2021-05-03 14:51:00 116.376 kg [facility] BMI 2021-05-03 14:51:00 46.93 kg/m2 [facility] Systolic blood pressure 2021-05-03 14:52:00 144 mm[Hg] [place] [facility] Diastolic blood pressure 2021-05-03 14:52:00 98 mm[Hg] [place] [facility] Heart rate 2021-05-03 14:52:00 75 /min [facility] Body temperature 2021-05-03 14:51:00 36.22 Ann-Marie [facility] Respiratory rate 2021-05-03 14:51:00 20 /min [facility] Body height 2021-05-03 14:51:00 157.5 cm [facility] Body weight 2021-05-03 14:51:00 116.376 kg [facility] BMI 2021-05-03 14:51:00 46.93 kg/m2 [facility] Procedures Procedure Date / Time Performed Performing Clinicia n Source CT SOFT TISSUE NECK W CONTRAST 2023-01-11 19:00:00 Sherley Diez [facility] COMP. METABOLIC PANEL ([id number]) 2023-01-11 18:45:00 Sherley Diez [facility] CBC WITH DIFF 2023-01-11 18:45:00 Sherley Diez [facility] POCT TEST 2023-01-11 18:39:00 Sravan Diez [facility] CONSENT/REFUSAL FOR DIAGNOSIS AND TREATMENT 2023-01-11 18:00:13 Doctor Unassigned, Kinde [facility] LAB ONLY PAP SMEAR-LIQUID BASED 2021-05-03 16:08:00 Jacquie Noriega [facility] PAP SMEAR-LIQUID BASED-CP 2021-05-03 16:08:00 Jacquie Noriega [facility] Encounters Start Date/Time End Date/Time Encounter Type Admission Type Attending Clinicians Care Facility Care Department Encounter ID Source 2020-12-06 17:05:57 Emergency [facility] [id number] [facility] 2023-01-11 12:05:00 2023-01-11 14:34:00 Emergency X SHERLEY DIEZ [facility] ERT [id number] [facility] 2023-01-11 12:05:00 2023-01-11 14:34:00 Emergency Sherley Diez [facility] 1.840.114 350.1.13.10 4.2.7.2.686 [id number] [facility] 2023-01-01 09:15:00 2023-01-01 09:15:00 Outpatient R JACQUIE NORIEGA [facility] [id number] [facility] 2022-12-02 00:00:00 2022-12-02 00:00:00 Outpatient GC_GCBZW_Ka diyala_S PRIV PRIV [id number] [facility] 2021-12-03 12:38:34 2021-12-03 12:38:34 Outpatient [facility] [id number] Tha Flaherty [facility] 2021-07-05 13:00:00 2021-07-05 13:00:00 Outpatient JOSÉ PURVIS [facility] [id number] [facility] 2021-06-03 13:30:00 2021-06-03 13:30:00 Outpatient JOSÉ PURVIS [facility] [id number] [facility] 2021-05-23 00:00:00 2021-05-23 00:00:00 Orders Only Doctor Unassigned, Kinde [facility] 1.840.114 350.1.13.10 4.2.7.2.686 [id number] [facility] 2021-05-19 00:00:00 2021-05-19 00:00:00 Telephone Jacquie Noriega [facility] CR[facility] 1.840.114 350.1.13.10 4.2.7.2.686 [id number] [facility] 2021-05-03 09:30:00 2021-05-03 10:51:04 Outpatient JACQUIE WU [facility] [id number] [facility] 2021-05-03 09:30:00 2021-05-03 10:51:04 Office Visit Jacquie Noriega [facility] & CHILD [facility] 1.840.114 350.1.13.10 4.2.7.2.686 [id number] [facility] 2021-05-03 09:30:00 2021-05-03 10:51:04 Outpatient R JACQUIE NORIEGA [facility] [id number] [facility] 2021-05-03 09:30:00 2021-05-03 10:51:04 Outpatient R JACQUIE NORIEGA [facility] [id number] [facility] 2021-05-03 09:30:00 2021-05-03 10:51:04 Office Visit Jacquie Noriega [facility] CHILD [facility] 1.0.114 350.1.13.10 4.2.7.2.686 [id number] [facility] 2021-05-03 00:00:00 2021-05-03 00:00:00 Orders Only Doctor Unassigned, Kinde [facility] 1.840.114 350.1.13.10 4.2.7.2.686 [id number] [facility] 2021-05-03 00:00:00 2021-05-03 00:00:00 Telephone Jacquie Noriega [facility] CHILD [facility] 1.0.114 350.1.13.10 4.2.7.2.686 [id number] [facility] 2021-05-03 00:00:00 2021-05-03 00:00:00 Telephone Jacquie Noriega [facility]ILD [facility] 1.0.114 350.1.13.10 4.2.7.2.686 [id number] [facility] 2020-09-24 23:09:00 2020-09-25 04:02:00 Emergency Geraldine Galvan [facility] 1.2.840.114 350.1.13.10 4.2.7.2.686 [id number] [facility] 2020-09-24 23:09:00 2020-09-25 04:02:00 Emergency Geraldine Galvan [facility] 1.2.840.114 350.1.13.10 4.2.7.2.686 [id number] 2020-09-02 15:30:00 2020-09-02 23:59:00 Hospital Encounter Radiology [facility] 1.2.840.114 350.1.13.10 4.2.7.2.686 [id number] [facility] 2020-09-02 15:30:00 2020-09-02 23:59:00 Hospital Encounter Radiology [facility] 1.2.840.114 350.1.13.10 4.2.7.2.686 [id number] 2020-09-02 00:00:00 2020-09-02 00:00:00 Outpatient R RADIOLOGY [facility] [id number] [facility] 2020-08-27 21:50:00 2020-08-27 23:10:00 Emergency Geraldine Galvan [facility] 1.2.840.114 350.1.13.10 4.2.7.2.686 [id number] [facility] 2020-08-27 21:50:00 2020-08-27 23:10:00 Emergency Geraldine Galvan [facility] 1.2.840.114 350.1.13.10 4.2.7.2.686 [id number] 2020-08-27 21:50:00 2020-08-27 21:50:00 Emergency X GERALDINE GALVAN [facility] [id number] [facility] 2020-08-27 00:00:00 2020-08-27 00:00:00 Transition of Care Prisca Dinh 1.2.840.114 350.1.13.10 4.2.7.2.686 [id number] [facility] 2020-08-27 00:00:00 2020-08-27 00:00:00 Transition of Care Prisca Dinh 1.2.840.114 350.1.13.10 4.2.7.2.686 [id number] 2020-08-24 14:12:00 2020-08-26 13:37:00 Hospital Encounter Chavo Jose [facility] 1.2.840.114 350.1.13.10 4.2.7.2.686 [id number] 2020-08-24 14:12:00 2020-08-26 13:37:00 Hospital Encounter Chavo Jose [facility] 1.2.840.114 350.1.13.10 4.2.7.2.686 [id number] [facility] 2020-08-24 13:52:00 2020-08-24 13:52:00 Emergency X [facility] [id number] [facility] 2020-08-24 00:00:00 2020-08-24 00:00:00 Orders Only Doctor Unassigned, Kinde [facility] 1.2.840.114 350.1.13.10 4.2.7.2.686 [id number] 2020-08-24 00:00:00 2020-08-24 00:00:00 Orders Only Doctor Unassigned, Kinde [facility] 1.2.840.114 350.1.13.10 4.2.7.2.686 [id number] [facility] Results Test Description Test Time Test Comments Results Result Co mments Source [facility] WITH [id number] 19:29:18* Test Item Value Reference Range Interpretation [...] 33.2 g/dL 31.6-35.1 RDW-SD (test code = 91823-0) 38.3 fL 39.0-49.9 L RDW-CV (test code = 788-0) 12.6 % 12.0-15.5 PLT (test code = 777-3) 345 See_Comment [Automated messa ge] The system which generated this result transmitted reference range: 166 - 358 10*3/?L. The reference range was not used to interpret this result as normal/abnormal. MPV (test code = 28721-1) 8.6 fL 9.5-12.9 L NRBC/100 WBC (test code = 3955836533) 0.0 See_Comment [Automated Pixelle ssage] The system which generated this result transmitted reference range: 0.0 - 10.0 /100 WBCs. The reference range was not used to interpret this result as normal/abnormal. NRBC x10^3 (test code = 0327518920) See_Comment [Automated messa ge] The system which generated this result transmitted reference range: 10*3/?L. The reference range was not used to interpret this result as normal/abnormal. GRAN MAT (NEUT) % (test code = 770-8) 70.2 % IMM GRAN % (test code = 5132678260) 0.40 % LYMPH % (test code = 736-9) 21.9 % MONO % (test code = 5905-5) 4.4 % EOS % (test code = 713-8) 2.6 % BASO % (test code = 706-2) 0.5 % GRAN MAT x10^3(ANC) (test code = 3354210235) 5.47 10*3/uL 1.88-7.09 IMM GRAN x10^3 (test code = 2760725779) 0.03 10*3/uL 0.00-0.06 LYMPH x10^3 (test code = 731-0) 1.70 10*3/uL 1.32-3.29 MONO x10^3 (test code = 742-7) 0.34 10*3/uL 0.33-0.92 EOS x10^3 (test code = 711-2) 0.20 10*3/uL 0.03-0.39 BASO x10^3 (test code = 704-7) 0.04 10*3/uL 0.01-0.07 Lab Interpretation (test code = 21274-9) [id number]:39:00* Test Item Value Reference Range Interpretation Comme nts POCT PREG (test code = 1605) Negative On board controls acceptable with C Line (test code = 3574) Yes POCT PREG LOT # (test code = 3575) [id number] POCT PREG TEST DATE ( test code = 3576) 04/15/2024 Lab Interpretation (test cod e = 36477-8) Normal [facility]
[2023-11-26] MEDS ORDERED: GABAPENTIN 300 MG CAP ONE (08:48)
[2023-11-26] MEDS ORDERED: KETOROLAC 30 MG/ML INJ ONE (08:49)
[2023-11-26] MEDS ORDERED: dexAMETHasone 10 MG/ML VIAL ONE (08:49)
--- NOTE | 2023-11-26 11:25 | RAD REPORT ---
EXAMINATION: XR RIGHT SHOUDLER CLINICAL INDICATION: Female, 33 years old. PAIN RIGHT TECHNIQUE:Two view radiograph of the right shoulder were obtained. COMPARISON: No prior exam. FINDINGS: No bone or joint abnormality detected. IMPRESSION: No acute or significant abnormalities.
--- NOTE | 2023-11-26 11:36 | EDPHYS ---
Physician Documentation [facility] Name: Omayra Parra Age: 33 yrs Sex: Female : 1990 Arrival Date: 11/26/2023 Time: 08:33 Bed 5 Private MD: ED Physician Wenceslao Hutchison HPI: 11/25 08:47 This 33 yrs old Female presents to ER via Ambulatory with complaints of Shoulder Pain. sb4 08:47 intermittent right shoulder pain for a few years now, worse today. radiates to her sb4 right neck and down her right arm. has not followed up with ortho. Historical: - Allergies: 08:46 Morphine (Vomiting); hb - Home Meds: 08:46 Clonazepam Oral [Active]; hb - PMHx: 08:46 Anxiety; Hypercholesterolemia; Migraine; PCOS; hb - PSHx: 08:46 section; Exploratory laparotomy; hb - Immunization history:: Adult Immunizations up to date. - Infectious Disease History:: Denies. - Social history:: Smoking status: Reported history of juuling and/or vaping. ROS: 08:47 Constitutional: Negative for fever, chills, and weight loss, sb4 08:47 MS/extremity: Positive for decreased range of motion, pain, of the posterior aspect of right shoulder, 08:47 All other systems are negative, Exam: 08:47 Head/Face: Normocephalic, atraumatic. Eyes: Extra-ocular motions intact. Periorbital sb4 areas with no swelling, redness, or edema. Respiratory: No increased work of breathing, no retractions or nasal flaring. 08:47 Skin: Warm, dry with normal turgor. Normal color with no rashes, no lesions, and no evidence of cellulitis. 08:47 Constitutional: The patient appears alert, awake, uncomfortable, 08:47 Musculoskeletal/extremity: ROM: limited active range of motion, in the right arm, limited passive range of motion due to pain, Pulses: are normal with no appreciated deficits, Perfusion: the extremity is normally perfused throughout, Sensation intact. Vital Signs: 08:45 BP 139 / 85; Pulse 87; Resp 16; Temp 97.6(TE); Pulse Ox 98% on R/A; Weight 111.13 kg; hb Height 5 ft. 3 in. ; Pain 10/10; 09:53 BP 148 / 82; Pulse 67; Resp 16 S; Pulse Ox 97% on R/A; kc6 10:30 BP 147 / 91; Pulse 66; Resp 16 S; Pulse Ox 98% on R/A; kc6 08:45 Body Mass Index 43.40 (111.13 kg, 160.02 cm) hb 08:45 Pain Scale: Adult hb MDM: 08:39 Medical Screening Exam initiated sb4 09:43 Awaiting: X-ray results, xray has not been taken. sb4 11:35 Data reviewed: vital signs, nurses notes, radiologic studies, and as a result, I will sb4 discharge patient. Counseling: I had a detailed discussion with the patient and/or guardian regarding the historical points, exam findings, and any diagnostic results supporting the discharge/admit diagnosis, radiology results, the need for outpatient follow up, a orthopedic surgeon, to return to the emergency department if symptoms worsen or persist or if there are any questions or concerns that arise at home. 11/25 08:44 Order name: Shoulder Right (2 View) XRAY; Complete Time: 11:26 sb4 11/25 08:45 Order name: Shoulder Immobilizer; Complete Time: 11:15 sb4 Administered Medications: 08:55 Drug: Gabapentin PO 300 mg PO once Route: PO; kc6 10:32 Follow up: Response: No adverse reaction ph 08:56 Drug: Ketorolac IM 30 mg IM once Route: IM; Site: right deltoid; kc6 10:32 Follow up: Response: No adverse reaction ph 08:56 Drug: Dexamethasone IM 10 mg IM once Route: IM; Site: right deltoid; kc6 10:32 Follow up: Response: No adverse reaction ph Disposition: 12:45 Co-signature as Attending Physician, Wenceslao Hutchison MD. rt Disposition Summary: 11/26/23 11:35 Discharge Ordered Notes: Location: Home sb4 Problem: an ongoing problem sb4 Symptoms: have improved sb4 Condition: Stable sb4 Diagnosis - Pain in right shoulder sb4 Followup: sb4 - With: Daniel Dewitt MD - When: 1 week - Reason: Further diagnostic work-up, Recheck today's complaints, Re-evaluation by your physician Discharge Instructions: - Discharge Summary Sheet sb4 - Shoulder Pain sb4 Forms: - Work release form sb4 - Prescription Opioid Use sb4 - Patient Portal Instructions sb4 - Leadership Thank You Letter sb4 Prescriptions: - acetaminophen-codeine 300-30 mg Oral tablet - take 1 tablet ORAL route every 4 to 6 hours as needed for pain; 12 tablet; sb4 Refills: 0, Product Selection Permitted - meloxicam 7.5 mg Oral tablet - take 1 tablet ORAL route daily; 14 tablet; Refills: 0, Product Selection sb4 Permitted Signatures: Dispatcher [employer] EDHelen Overton RN RN Yoli Larson RN RN kc6 Yany Frye, PASully PASully sb4 Wenceslao Hutchison MD MD rt Marilou Christie RN ph
--- NOTE | 2023-11-26 11:36 | ER ---
Nurse's Notes [facility] Name: Omayra Parra Age: 33 yrs Sex: Female : 1990 Arrival Date: 11/26/2023 Time: 08:33 Bed 5 Private MD: Diagnosis: Pain in right shoulder Presentation: 11/25 08:45 Chief complaint: Right shoulder pain x years, recently became severe. Coronavirus hb screen: At this time, the client does not indicate any symptoms associated with coronavirus-19. Ebola Screen: No symptoms or risks identified at this time. Initial Sepsis Screen: Does the patient meet any 2 criteria? No. Patient's initial sepsis screen is negative. Does the patient have a suspected source of infection? No. Patient's initial sepsis screen is negative. Risk Assessment: Do you want to hurt yourself or someone else? Patient reports no desire to harm self or others. Onset of symptoms is unknown. 08:45 Method Of Arrival: Ambulatory hb 08:45 Acuity: GAYE 4 hb Historical: - Allergies: 08:46 Morphine (Vomiting); hb - Home Meds: 08:46 Clonazepam Oral [Active]; hb - PMHx: 08:46 Anxiety; Hypercholesterolemia; Migraine; PCOS; hb - PSHx: 08:46 section; Exploratory laparotomy; hb - Immunization history:: Adult Immunizations up to date. - Infectious Disease History:: Denies. - Social history:: Smoking status: Reported history of juuling and/or vaping. Screenin:57 [facility] ED Fall Risk Assessment (Adult) History of falling in the last 3 months, kc6 including since admission No falls in past 3 months (0 pts) Confusion or Disorientation No (0 pts) Intoxicated or Sedated No (0 pts) Impaired Gait No (0 pts) Mobility Assist Device Used No (0 pt) Altered Elimination No (0 pt) Score/Fall Risk Level 0 - 2 = Low Risk Oriented to surroundings. Abuse screen: Denies threats or abuse. Denies injuries from another. Nutritional screening: No deficits noted. Tuberculosis screening: No symptoms or risk factors identified. Assessment: 08:56 General: Appears in no apparent distress. comfortable, well groomed, well developed, kc6 Behavior is calm, cooperative, appropriate for age. Pain: Complains of pain in right arm and posterior aspect of right shoulder Pain began years ago. Neuro: Level of Consciousness is awake, alert, obeys commands, Oriented to person, place, time, situation, Appropriate for age. Cardiovascular: Capillary refill < 3 seconds. Respiratory: Airway is patent Trachea midline Respiratory effort is even, unlabored, Respiratory pattern is regular, symmetrical. GI: No signs and/or symptoms were reported involving the gastrointestinal system. : No signs and/or symptoms were reported regarding the genitourinary system. EENT: No signs and/or symptoms were reported regarding the EENT system. Derm: No signs and/or symptoms reported regarding the dermatologic system. Skin is intact, is healthy with good turgor, Skin is pink, warm \T\ dry. Musculoskeletal: Circulation, motion, and sensation intact. Capillary refill < 3 seconds, Range of motion: intact in all extremities. 09:52 Reassessment: Patient appears in no apparent distress at this time. No changes from kc6 previously documented assessment. Patient and/or family updated on plan of care and expected duration. Pain level reassessed. Patient is alert, oriented x 3, equal unlabored respirations, skin warm/dry/pink. 11:15 Reassessment: Patient appears in no apparent distress at this time. No changes from kc6 previously documented assessment. Patient and/or family updated on plan of care and expected duration. Pain level reassessed. Patient is alert, oriented x 3, equal unlabored respirations, skin warm/dry/pink. Vital Signs: 08:45 BP 139 / 85; Pulse 87; Resp 16; Temp 97.6(TE); Pulse Ox 98% on R/A; Weight 111.13 kg; hb Height 5 ft. 3 in. ; Pain 10/10; 09:53 BP 148 / 82; Pulse 67; Resp 16 S; Pulse Ox 97% on R/A; kc6 10:30 BP 147 / 91; Pulse 66; Resp 16 S; Pulse Ox 98% on R/A; kc6 08:45 Body Mass Index 43.40 (111.13 kg, 160.02 cm) hb 08:45 Pain Scale: Adult hb ED Course: 08:35 Patient arrived in ED. mg5 08:36 Yany Frye PA-C is PHCP. sb4 08:36 Wenceslao Hutchison MD is Attending Physician. sb4 08:46 Yoli Larson RN is Primary Nurse. kc6 08:46 Triage completed. hb 08:48 Arm band placed on left wrist. hb 08:57 Patient has correct armband on for positive identification. Bed in low position. Call kc6 light in reach. Side rails up X 1. Pulse ox on. NIBP on. Door closed. Noise minimized. Lights dimmed. Pillow given. 08:57 Patient maintains SpO2 saturation greater than 95% on room air. kc6 10:02 Shoulder Right (2 View) XRAY In Process Unspecified. EDMS 11:35 Daniel Dewitt MD is Referral Physician. sb4 11:48 Sling applied to right arm. kc6 11:49 No provider procedures requiring assistance completed. Patient did not have IV access kc6 during this emergency room visit. Administered Medications: 08:55 Drug: Gabapentin PO 300 mg PO once Route: PO; kc6 10:32 Follow up: Response: No adverse reaction ph 08:56 Drug: Ketorolac IM 30 mg IM once Route: IM; Site: right deltoid; kc6 10:32 Follow up: Response: No adverse reaction ph 08:56 Drug: Dexamethasone IM 10 mg IM once Route: IM; Site: right deltoid; kc6 10:32 Follow up: Response: No adverse reaction ph Medication: 11:49 VIS not applicable for this client. kc6 Outcome: 11:35 Discharge ordered by . sb4 11:49 Discharged to home ambulatory, with significant other, kc6 11:49 Condition: good 11:49 Discharge instructions given to patient, significant other, Instructed on discharge instructions, follow up and referral plans. no drinking with medication, no driving heavy equipment, medication usage, Demonstrated understanding of instructions, follow-up care, medications, Prescriptions given X 2, 11:49 Patient left the ED. kc6 Signatures: Dispatcher [employer] EDPA Marilou Christie RN RN ph Helen Mccain, Yoli Ragsdale RN, RN RN kc6 Yany Frye PA-C PA-C sb4 [place], [place] mg5
[2023-11-26 14:34] VITALS: BP 147/91; TEMP 97.6; O2SAT 98
== END 2023-11-26 11:49 | disposition home or self-care (01) ==
LOC: ER 08:33
DX: M25.511 Pain in right shoulder (principal)
CPT/HCPCS: 73030; 96372; 99284; J1100

== ENCOUNTER 2024-01-23 11:53 | Emergency (ER) | payer SELFPAY ==
--- OUTSIDE RECORDS SUMMARY | 2024-01-23 11:57 | XMS REPORT | Continuity of Care Document ---
Author Name Unknown Address [address] [facility] [address] [place] [address] [facility] Address [address] [facility] [place] [address] Care Team Providers Care Sports Marketer Name Role Phone CARMELINA HANLEY Primary Care Physician Unavailab SHERLEY Gabriel Attending Clinician Unavailable Sherley Diez MD Attending Clinician [phone] JACQUIE NORIEGA Attending Clinician Unavail able GC_GCBZW_Lalita_S Attending Clinician UnavailJOSÉ Gonsalez Attending Clinician Unavailable Doctor Unassigned, [place] Attending Clinician U navailable Leann Jacquie WHITMAN Attending Clinician + Geraldine Galvan MD Attending Clinician [phone] Radiology Attending Clinician Unavailable RADIOLOGY Attending Clinician Unavailable GERALDINE GALVAN Attending Clinician Unavailable Prisca Dinh RN Attending Clinician [phone] Chavo Jose MD Attending Clinician [phone] Rojelio De La Rosa MD Attending Clinician [phone] SHERLEY DIEZ Admitting Clinician Unavailable [email or web address]_S Admitting Clinician UnavailRojelio Brush MD Admitting Clinician [phone] Payers Payer Name Policy Type Policy Number Effective Date Expirati on Date Source [facility] [id number] 2021 00:00:00 Problems Condition Name Condition Details Condition Category Status Onset Date Resolution Date Last Treatment Date Treating Clinician Comments Source Elevated blood pressure reading without diagnosis of hypertensi on Elevated blood pressure reading without diagnosis of hypertensi on Disease Active 3-29 00:00: 00 [facility] Cellulitis of submental space Cellulitis of submental space Disease Active 08-25 00:00: 00 [facility] Failure of outpatient treatment Failure of outpatient treatment Disease Active 08-24 00:00: 00 [facility] Missed menses Missed menses Disease Active 10-21 00:00: 00 [facility] History of anxiety History of anxiety Disease Active 10-21 00:00: 00 [facility] Tobacco use disorder Tobacco use disorder Disease [facility] 10-21 00:00: 00 [facility] General counseling and advice for contracept jamison management General counseling and advice for contracept jamison management Disease [facility] 11-01 00:00: 00 Overview: Formattin g of this note might be different from the original. 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 [facility] Generalize d anxiety disorder Generalize d anxiety disorder Disease [facility] 11-01 00:00: 00 [facility] Morbid obesity Morbid obesity Disease [facility] 11-01 00:00: 00 [facility] Allergies, Adverse Reactions, Alerts Allergy Name Allergy Type Status Severity Reaction(s) Onset Date Inactive Date Treating Clinician Comments Source MORPHINE DRUG INGREDI Active Low Anxiety 08-24 00:00: 00 [facility] Morphine Propensi ty to adverse reaction s Active Nausea and/or Vomiting 08-24 00:00: 00 [facility] Social History Social Habit Start Date Stop Date Quantity Comments Source [facility] of Social function 2023-01-11 00:00:00 2023-01-11 00:00:00 [facility] Alcohol intake 2023-01-11 00:00:00 2023-01-11 00:00:00 .24 /d [facility] Exposure to SARS-CoV-2 (event) 2021-04-03 00:00:00 2021-05-03 09:51:00 Not sure [facility] Cigarettes smoked current (pack per day) - Reported 2021-05-03 00:00:00 2021-05-03 00:00:00 [facility] Cigarette pack-years 2021-05-03 00:00:00 2021-05-03 00:00:00 [facility] Tobacco use and exposure 2021-05-03 00:00:00 2021-05-03 00:00:00 Smokeless tobacco non-user [facility] Education - What is the highest level of school you have completed or the highest degree you have received? 2020-08-24 00:00:00 2020-08-24 00:00:00 Some college, no degree [facility] Tobacco Comment 2020-08-24 00:00:00 2020-08-24 00:00:00 quit last week [facility] History of tobacco use 2012-02-02 00:00:00 2012-02-02 00:00:00 Cigarette Smoker [facility] Sex Assigned At 1990 00:00:00 1990 00:00:00 [facility] Smoking Status Start Date Stop Date Source Smokes tobacco daily 2021-05-03 00:00:00 [facility] Medications Ordered Medication Name Filled Medication Name Start Date Stop Date Current Medication? Ordering Clinician Indication Dosage Frequency Signature (SIG) Comments Components Source acetaminoph en (TYLENOL) tablet 975 mg 2022-02 21:00: 00 01-11 19:56 :00 No 975mg 975 mg, Oral, ONCE NOW, 1 dose, On Sun01/11/23 at 1500, [facility] ondansetron (ZOFRAN (PF)) injection 4 mg 2022-02 20:00: 00 01-11 19:56 :00 No 4mg 4 mg, Slow IV Push, ONCE, 1 dose, On Sun01/11/23 at 1400, [facility] iopamidol (ISOVUE 370-500 mL) injection 80 mL 2022-02 20:00: 00 01-11 20:00 :00 No [id number] 80mL 80 mL, Intravenou s, ONCE, 1 dose, On Glory 01/11/23 at 1400, Routine [facility] ketorolac (TORADOL) injection 30 mg 2022-02 19:15: 00 01-11 18:46 :00 No 30mg 30 mg, Slow IV Push, ONCE NOW, 1 dose, On Glory 01/11/23 at 1315, MAKAYLA [facility] ampicillin- sulbactam (UNASYN) 3 g in NaCl 0.9% (NS) 100 mL MINI-BAG 2022-02 18:30: 00 01-11 19:52 :00 No 3g 3 g, IV Piggyback, ONCE, 1 dose, On Glory 01/11/23 at 1230, Administer over 30 Minutes, 100 mL
Reas on for Anti-Infec tive: Documented Infection< br>Documen tali Infection Site: HEENT
D uration of Therapy: Other (see Comments) [facility] dexamethaso ne sod phos PF injection 10 mg 2022-02 18:30: 00 01-11 18:47 :00 No 10mg 10 mg, Slow IV Push, ONCE, 1 dose, On Glory 01/11/23 at 1230, 1 mL [facility] diclofenac 75 mg EC tablet 2022-02 00:00: 00 Yes [id number] 75mg Take 1 tablet by mouth in the morning and 1 tablet in the evening. Take with meals. [facility] ondansetron 4 mg disintegrat ing tablet 2022-02 00:00: 00 Yes [id number] 4mg Take 1 tablet by mouth every 8 (eight) hours as needed for Nausea and Vomiting (N/V). [facility] acetaminoph en (TYLENOL ARTHRITIS PAIN) 650 mg CR tablet 2022-02 00:00: 00 Yes [id number] 650mg Take 1 tablet by mouth every 8 (eight) hours as needed for Pain. [facility] amoxicillin -clavulanat e 875-125 mg per tablet 2022-02 2-07 00:00: 00 01-22 05:59 :00 No [id number] 1{tbl} Take 1 tablet by mouth every 12 (twelve) hours for 10 days. [facility] dicyclomine 20 mg tablet 09-25 00:00: 00 05-03 00:00 :00 No [id number] 20mg Take 1 tablet by mouth every 6 (six) hours as needed for Abdominal pain. [facility] ondansetron (ZOFRAN) 4 mg tablet 09-25 00:00: 00 05-03 00:00 :00 No [id number] 4mg Take 1 tablet by mouth every 8 (eight) hours as needed for Nausea and Vomiting (N/V). [facility] omeprazole 20 mg capsule 08-27 00:00: 00 05-03 00:00 :00 No [id number] 20mg Take 1 capsule by mouth daily. [facility] sulfamethox azole-trime thoprim 800-160 mg per tablet 08-26 00:00: 00 05-03 00:00 :00 No [id number] 1{tbl} Take 1 tablet by mouth 2 (two) times daily. [facility] HYDROcodone -acetaminop hen 5-325 mg tablet 08-26 00:00: 00 05-03 00:00 :00 No [id number] 1{tbl} Take 1 tablet by mouth every 6 (six) hours as needed for Pain (scale 4-6) or Pain (scale 7-10). Indication s: acute pain [facility] Immunizations Ordered Immunization Name Filled Immunization Name Date Status Comments Source TDAP 2012-09-25 00:00:00 Completed [facility] Meningococcal Vaccine 2011-01-25 00:00:00 Completed [facility] Rubella 2010-04-01 00:00:00 Completed [facility] Td 2006-02-05 00:00:00 Completed [facility] Varicella (varivax)(chicken pox) 1996-02-06 00:00:00 Completed [facility] Meningococcal Vaccine Unknown Completed [facility] Rubella Unknown Completed [facility] TD, NOS Unknown Completed [facility] Varicella (varivax)(chicken pox) Unknown Completed [facility] TDAP Unknown Completed [facility] Vital Signs Vital Name Observation Time Observation Value Comments S annette Systolic blood pressure 2023-01-11 20:00:00 144 mm[Hg] [facility] Diastolic blood pressure 2023-01-11 20:00:00 100 mm[Hg] [facility] Heart rate 2023-01-11 20:00:00 74 /min [facility] Respiratory rate 2023-01-11 20:00:00 16 /min [facility] Oxygen saturation in Arterial blood by Pulse oximetry 2023-01-11 20:00:00 97 /min [facility] Body temperature 2023-01-11 18:04:00 37.11 Ann-Marie [facility] Body height 2023-01-11 18:04:00 157.5 cm [facility] Body weight 2023-01-11 18:04:00 117.935 kg [facility] BMI 2023-01-11 18:04:00 47.55 kg/m2 [facility] Systolic blood pressure 2021-05-03 14:52:00 144 mm[Hg] [facility] Diastolic blood pressure 2021-05-03 14:52:00 98 mm[Hg] [facility] Heart rate 2021-05-03 14:52:00 75 /min [facility] Body temperature 2021-05-03 14:51:00 36.22 Ann-Marie [facility] Respiratory rate 2021-05-03 14:51:00 20 /min [facility] Body height 2021-05-03 14:51:00 157.5 cm [facility] Body weight 2021-05-03 14:51:00 116.376 kg [facility] BMI 2021-05-03 14:51:00 46.93 kg/m2 [facility] Systolic blood pressure 2021-05-03 14:52:00 144 mm[Hg] Randolph o [facility] Diastolic blood pressure 2021-05-03 14:52:00 98 mm[Hg] Randolph o [facility] Heart rate 2021-05-03 14:52:00 75 /min [facility] Body temperature 2021-05-03 14:51:00 36.22 Ann-Marie [facility] Respiratory rate 2021-05-03 14:51:00 20 /min [facility] Body height 2021-05-03 14:51:00 157.5 cm [facility] Body weight 2021-05-03 14:51:00 116.376 kg [facility] BMI 2021-05-03 14:51:00 46.93 kg/m2 [facility] Procedures Procedure Date / Time Performed Performing Clinicia n Source CT SOFT TISSUE NECK W CONTRAST 2023-01-11 19:00:00 Sherley Diez [facility] COMP. METABOLIC PANEL ([id number]) 2023-01-11 18:45:00 Sherley Diez [facility] CBC WITH DIFF 2023-01-11 18:45:00 Sherley Diez [facility] POCT TEST 2023-01-11 18:39:00 Sravan Diez [facility] CONSENT/REFUSAL FOR DIAGNOSIS AND TREATMENT 2023-01-11 18:00:13 Doctor Unassigned, [place] [facility] LAB ONLY PAP SMEAR-LIQUID BASED 2021-05-03 16:08:00 Jacquie Noriega [facility] PAP SMEAR-LIQUID BASED-CP 2021-05-03 16:08:00 Jacquie Noriega [facility] Encounters Start Date/Time End Date/Time Encounter Type Admission Type Attending Clinicians Care Facility Care Department Encounter ID Source 2020-12-06 17:05:57 Emergency [facility] [id number] [facility] 2023-01-11 12:05:00 2023-01-11 14:34:00 Emergency X SHERLEY DIEZ [facility] ERT [id number] [facility] 2023-01-11 12:05:00 2023-01-11 14:34:00 Emergency Sherley Diez [facility] 1.840.114 350.1.13.10 4.2.7.2.686 [id number] [facility] 2023-01-01 09:15:00 2023-01-01 09:15:00 Outpatient R JACQUIE NORIEGA [facility] [id number] [facility] 2022-12-02 00:00:00 2022-12-02 00:00:00 Outpatient GC_GCBZW_Ka diyala_S PRIV PRIV [id number] [facility] 2021-12-03 12:38:34 2021-12-03 12:38:34 Outpatient S[facility] [id number] Tha F Memo 2021-07-05 13:00:00 2021-07-05 13:00:00 Outpatient JOSÉ PURVIS [facility] [id number] [facility] 2021-06-03 13:30:00 2021-06-03 13:30:00 Outpatient JOSÉ PURVIS [facility] [id number] [facility] 2021-05-23 00:00:00 2021-05-23 00:00:00 Orders Only Doctor Unassigned, [place] [facility] 1.840.114 350.1.13.10 4.2.7.2.686 [id number] [facility] 2021-05-19 00:00:00 2021-05-19 00:00:00 Telephone Jacquie Noriega [facility] ADJUSTER AND INSPECTOR [facility] 1.840.114 350.1.13.10 4.2.7.2.686 [id number] [facility] 2021-05-03 09:30:00 2021-05-03 10:51:04 Outpatient R JACQUIE NORIEGA [facility] [id number] [facility] 2021-05-03 09:30:00 2021-05-03 10:51:04 Office Visit Jacquie Noriega [facility] ADJUSTER AND INSPECTOR [facility] & CHILD [facility] 1.840.114 350.1.13.10 4.2.7.2.686 [id number] [facility] 2021-05-03 09:30:00 2021-05-03 10:51:04 Outpatient R JACQUIE NORIEGA [facility] [id number] [facility] 2021-05-03 09:30:00 2021-05-03 10:51:04 Outpatient R JACQUIE NORIEGA [facility] [id number] [facility] 2021-05-03 09:30:00 2021-05-03 10:51:04 Office Visit Jacquie Noriega [facility] ADJUSTER AND INSPECTOR [facility] CHILD [facility] 1.0.114 350.1.13.10 4.2.7.2.686 [id number] [facility] 2021-05-03 00:00:00 2021-05-03 00:00:00 Orders Only Doctor Unassigned, [place] [facility] 1.840.114 350.1.13.10 4.2.7.2.686 [id number] [facility] 2021-05-03 00:00:00 2021-05-03 00:00:00 Telephone Jacquie Noriega [facility] ADJUSTER AND INSPECTOR [facility] CHILD [facility] 1.0.114 350.1.13.10 4.2.7.2.686 [id number] [facility] 2021-05-03 00:00:00 2021-05-03 00:00:00 Telephone Jacquie Noriega [facility] ADJUSTER AND INSPECTOR [facility] CHILD [facility] 1.0.114 350.1.13.10 4.2.7.2.686 [id number] [facility] 2020-09-24 23:09:00 2020-09-25 04:02:00 Emergency Geraldine Galvan [facility] 1.2.840.114 350.1.13.10 4.2.7.2.686 [id number] [facility] 2020-09-24 23:09:00 2020-09-25 04:02:00 Emergency Geraldine Galvan [facility] 1.2.840.114 350.1.13.10 4.2.7.2.686 [id number] 2020-09-02 15:30:00 2020-09-02 23:59:00 Hospital Encounter Radiology [facility] 1.2.840.114 350.1.13.10 4.2.7.2.686 [id number] [facility] 2020-09-02 15:30:00 2020-09-02 23:59:00 Hospital Encounter Radiology [facility] 1.2.840.114 350.1.13.10 4.2.7.2.686 [id number] 2020-09-02 00:00:00 2020-09-02 00:00:00 Outpatient R RADIOLOGY [facility] [id number] [facility] 2020-08-27 21:50:00 2020-08-27 23:10:00 Emergency Geraldine Galvan [facility] 1.2.840.114 350.1.13.10 4.2.7.2.686 [id number] [facility] 2020-08-27 21:50:00 2020-08-27 23:10:00 Emergency Geraldine Galvan [facility] 1.2.840.114 350.1.13.10 4.2.7.2.686 [id number] 2020-08-27 21:50:00 2020-08-27 21:50:00 Emergency X GERALDINE GALVAN [facility] ERT [id number] [facility] 2020-08-27 00:00:00 2020-08-27 00:00:00 Transition of Care Prisca Dinh 1.2.840.114 350.1.13.10 4.2.7.2.686 [id number] [facility] 2020-08-27 00:00:00 2020-08-27 00:00:00 Transition of Care Prisca Dinh 1.2.840.114 350.1.13.10 4.2.7.2.686 [id number] 2020-08-24 14:12:00 2020-08-26 13:37:00 Hospital Encounter Chavo Jose [facility] 1.2.840.114 350.1.13.10 4.2.7.2.686 [id number] 2020-08-24 14:12:00 2020-08-26 13:37:00 Hospital Encounter Chavo Jose [facility] 1.2.840.114 350.1.13.10 4.2.7.2.686 [id number] [facility] 2020-08-24 13:52:00 2020-08-24 13:52:00 Emergency X [facility] ERT [id number] [facility] 2020-08-24 00:00:00 2020-08-24 00:00:00 Orders Only Doctor Unassigned, [place] [facility] 1.2.840.114 350.1.13.10 4.2.7.2.686 [id number] 2020-08-24 00:00:00 2020-08-24 00:00:00 Orders Only Doctor Unassigned, [place] [facility] 1.2.840.114 350.1.13.10 4.2.7.2.686 [id number] [facility] Results Test Description Test Time Test Comments Results Result Co mments Source [facility] WITH [id number] 19:29:18* Test Item Value Reference Range Interpretation [...] 33.2 g/dL 31.6-35.1 RDW-SD (test code = 64151-8) 38.3 fL 39.0-49.9 L RDW-CV (test code = 788-0) 12.6 % 12.0-15.5 PLT (test code = 777-3) 345 See_Comment [Automated messa ge] The system which generated this result transmitted reference range: 166 - 358 10*3/?L. The reference range was not used to interpret this result as normal/abnormal. MPV (test code = 95675-3) 8.6 fL 9.5-12.9 L NRBC/100 WBC (test code = 1081718992) 0.0 See_Comment [Automated me ssage] The system which generated this result transmitted reference range: 0.0 - 10.0 /100 WBCs. The reference range was not used to interpret this result as normal/abnormal. NRBC x10^3 (test code = 5245446664) See_Comment [Automated messa ge] The system which generated this result transmitted reference range: 10*3/?L. The reference range was not used to interpret this result as normal/abnormal. GRAN MAT (NEUT) % (test code = 770-8) 70.2 % IMM GRAN % (test code = 8840337746) 0.40 % LYMPH % (test code = 736-9) 21.9 % MONO % (test code = 5905-5) 4.4 % EOS % (test code = 713-8) 2.6 % BASO % (test code = 706-2) 0.5 % GRAN MAT x10^3(ANC) (test code = 2121694814) 5.47 10*3/uL 1.88-7.09 IMM GRAN x10^3 (test code = 7048365978) 0.03 10*3/uL 0.00-0.06 LYMPH x10^3 (test code = 731-0) 1.70 10*3/uL 1.32-3.29 MONO x10^3 (test code = 742-7) 0.34 10*3/uL 0.33-0.92 EOS x10^3 (test code = 711-2) 0.20 10*3/uL 0.03-0.39 BASO x10^3 (test code = 704-7) 0.04 10*3/uL 0.01-0.07 Lab Interpretation (test code = 95872-1) [id number]:39[facility]00* Test Item Value Reference Range Interpretation Comme nts POCT PREG (test code = 1605) Negative On board controls acceptable with C Line (test code = 3574) Yes POCT PREG LOT # (test code = 3575) [id number] POCT PREG TEST DATE ( test code = 3576) 04/15/2024 Lab Interpretation (test cod e = 88118-8) Normal [facility]
[2024-01-23 12:33] LABS: Specific Gravity 1.024 (1.005-1.030)
[2024-01-23 12:33] LABS: Absolute Basophils 0.1 K/uL (0-0.5); Absolute Eosinophils 0.2 K/uL (0-0.5); Absolute Lymphocytes (CBC) 2.1 K/uL (0.7-4.9); Absolute Monocytes 0.4 K/uL (0.1-1.3); Absolute Neutrophil 5.2 K/uL (1.8-8.0); Basophils % 0.7 % (0-1.3); Eosinophils % 2.1 % (0-4.4); Hematocrit 38.6 % (36.0-45.0); Hemoglobin 12.7 g/dL (12.0-15.0); MCH 26.9 pg (27.0-35.0); MCHC 32.8 g/dL (32.0-36.0); MPV 6.9 fL (7.6-11.3); Monocytes % 4.7 % (3.3-12.3); Neutrophils % 65.5 % (41.7-73.7); Platelets 368 thou/uL (152-406); Red Cell Distribution Width 13.1 % (12.1-15.2)
[2024-01-23 12:35] LABS: Specific Gravity 1.024 (1.005-1.030); Urine Bacteria None Seen /HPF (<20); Urine Bilirubin NEGATIVE (Negative); Urine Blood 3+ (OVER) (Negative); Urine Clarity Extremely Turbid (Clear); Urine Color Light-Yellow (Yellow); Urine Culture Reflex Order REFLEXED; Urine Glucose NEGATIVE (Negative); Urine Ketones NEGATIVE (Negative); Urine Microscopic Reflex YN ORDER UMIC; Urine Mucus Slight /HPF (None Seen); Urine Nitrite NEGATIVE (Negative); Urine Protein TRACE (Negative); Urine RBC 21-50 /HPF (None Seen); Urine Urobilinogen Normal (Normal); Urine pH 6.5 (5.0-7.0)
[2024-01-23 12:49] LABS: Albumin 3.7 g/dL (3.4-5.0); Albumin/Globulin Ratio 0.9 (1.1-1.8); Anion Gap 6.3 mEq/L (5.0-15.0); Bilirubin Total 0.9 mg/dL (0.2-1.0); Globulin 3.9 g/dL (2.3-3.5); Potassium 3.3 mEq/L (3.5-5.1); Protein, Total 7.6 g/dL (6.4-8.2)
--- NOTE | 2024-01-23 13:29 | RAD REPORT ---
EXAMINATION: CT Stone Protocol CLINICAL INDICATION: Female, 33 years old. flank pain, hematuria TECHNIQUE: CT abdomen and pelvis was performed, without IV contrast, as per department protocol. Axia l, sagittal and coronal reconstructions were obtained. One or more of the following dose reduction techniques were used: Automated exposure control, adjustment of the mA and kV according to the patien t size, and iterative reconstruction. Unless otherwise specified, incidental findings do not require dedicated imaging follow-up. COMPARISON: 07/14/2023 FINDINGS: The lack of intravenous contrast limits the sensitivity of this exam for evaluation of solid visceral organs, vascular structures, and retroperitoneum. LOWER CHEST: The visualized lung bases are clear. LIVER: Normal in size and contour. No focal lesion. BILIARY SYSTEM: No suspicious abnormalities. SPLEEN: Normal size. No focal lesion. PANCREAS: No mass, ductal dilation, or martha-pancreatic fluid. ADRENALS: Normal; no mass. KIDNEYS AND URETERS: Normal size and contour. No hydronephrosis. 1-2 mm right interpolar nonobstructi ng calculus. URINARY BLADDER: Decompressed limiting evaluation. GASTROINTESTINAL TRACT: No evidence of bowel obstruction, significant free fluid, free air or abscess . APPENDIX: Normal appendix. LYMPH NODES: No lymphadenopathy. MUSCULOSKELETAL: No acute or suspicious osseous abnormality. ADDITIONAL FINDINGS: None. IMPRESSION: Nonobstructing right renal 1-2 mm calculus. No other acute or concerning abnormalities in the abdomen or pelvis, with evaluation limited by lack of IV contrast.
--- NOTE | 2024-01-23 14:02 | ER ---
Nurse's Notes [facility] Name: Omayra Parra Age: 33 yrs Sex: Female : 1990 Arrival Date: 01/23/2024 Time: 11:53 Bed 19 Private MD: Diagnosis: Calculus of kidney;Hematuria, unspecified;UTI/ Urinary tract infection, site not specified Presentation: 01/22 11:59 Chief complaint: Patient states: she has been having low back pain for approx a week, ap3 worse on the left. patient reports that it is painful to have a bowel movement but denies any urinary symptoms at this time. patient currently rates her pain as a 9/10 on the pain scale. Coronavirus screen: At this time, the client does not indicate any symptoms associated with coronavirus-19. Ebola Screen: No symptoms or risks identified at this time. Initial Sepsis Screen: Does the patient meet any 2 criteria? No. Patient's initial sepsis screen is negative. Does the patient have a suspected source of infection? No. Patient's initial sepsis screen is negative. Risk Assessment: Do you want to hurt yourself or someone else? Patient reports no desire to harm self or others. Onset of symptoms was January 16, 2024. 11:59 Method Of Arrival: Ambulatory ap3 11:59 Acuity: GAYE 3 ap3 Triage Assessment: 12:02 General: Appears uncomfortable, Behavior is calm, cooperative, appropriate for age. ap3 Pain: Complains of pain in low back area and mid back area Pain currently is 9 out of 10 on a pain scale. Pain began gradually. Neuro: Level of Consciousness is awake, alert, obeys commands, Oriented to person, place, time, situation, Appropriate for age. Cardiovascular: Patient's skin is warm and dry. Respiratory: Airway is patent Respiratory effort is even, unlabored, Respiratory pattern is regular, symmetrical. : Reports blood in urine. Musculoskeletal: Range of motion: intact in all extremities. Historical: - Allergies: 12:01 Morphine (Vomiting); ap3 - PMHx: 12:01 Anxiety; Hypercholesterolemia; Migraine; PCOS; ap3 - PSHx: 12:01 section; Exploratory laparotomy; ap3 - Immunization history:: Client reports having NOT received the Covid vaccine. Flu vaccine is up to date. - Infectious Disease History:: Denies. - Social history:: Smoking status: Reported history of juuling and/or vaping. Patient uses alcohol, but reports only rare drinking. - Family history:: not pertinent. - Hospitalizations: : No recent hospitalization is reported. Screenin:03 Abuse screen: Denies threats or abuse. Nutritional screening: No deficits noted. ap3 Tuberculosis screening: No symptoms or risk factors identified. Vital Signs: 11:59 BP 157 / 119; Pulse 84; Resp 17; Temp 98.1; Pulse Ox 100% ; Weight 114.31 kg; Height 5 ap3 ft. 2 in. ; Pain 9/10; 12:07 BP 158 / 93; ap3 11:59 Body Mass Index 46.09 (114.31 kg, 157.48 cm) ap3 11:59 Pain Scale: Adult ap3 ED Course: 11:55 Patient arrived in ED. mr 12:01 Triage completed. ap3 12:01 Cristofer Lorenzana MD is Attending Physician. rn 12:03 Arm band placed on right wrist. ap3 12:24 Initial lab(s) drawn, by ak, sent to lab. Urine collected: clean catch specimen, clear. iw Inserted saline lock: 22 gauge in left antecubital area, using aseptic technique. Blood collected. Flushed with 10 mL NS. 12:55 CT Stone Protocol In Process Unspecified. [facility] 14:19 Dorothy Rose, RN is Primary Nurse. iw Administered Medications: 14:19 Drug: Ketorolac IVP 15 mg IVP once Route: IVP; Site: left antecubital; iw Outcome: 14:01 Discharge ordered by . rn 14:30 Patient left the ED. iw Addendum: 01/27/2024 14:36 Addendum: Culture Results: Positive urine culture. Bacteria is resistant to, has i w intermediate sensitivity, or is not tested against prescribed antibiotics. Report given to APARNA for further evaluation and then to photoengraving helper for follow up with patient. Phone call Attempt #1 no answer, left voice mail. Signatures: Dispatcher [employer] EDKY Rosa Schmid, Reg Reg Dorothy Rose, RN RN iw Cristofer Lorenzana MD MD rn Prokisch, Amanda, RN RN ap3
--- NOTE | 2024-01-23 14:02 | EDPHYS ---
Physician Documentation [facility] Name: Omayra Parra Age: 33 yrs Sex: Female : 1990 Arrival Date: 01/23/2024 Time: 11:53 Bed 19 Private MD: ED Physician Cristofer Lorenzana HPI: 01/22 13:49 This 33 yrs old Female presents to ER via Ambulatory with complaints of Back Pain, rn Blood in urine, fatigue. 13:49 The patient presents with pain that is acute. The symptoms are located in the low back. rn Onset: The symptoms/episode began/occurred 1 week(s) ago. Associated signs and symptoms: Pertinent positives: hematuria, Pertinent negatives: fever. Modifying factors: The patient symptoms are alleviated by nothing, the patient symptoms are aggravated by nothing. Severity of symptoms: At their worst the symptoms were moderate, in the emergency department the symptoms have improved. Patient reports 1 week of bilateral lower back pain, some radiation to abdomen. Seen by PCP recently and told did not have a UTI. Treated with Flomax for possible kidney stone. No history of kidney stone. Reports had hematuria earlier in week with no longer has hematuria. Overall feels better but pain still not resolved so came in for evaluation.. Historical: - Allergies: 12:01 Morphine (Vomiting); ap3 - PMHx: 12:01 Anxiety; Hypercholesterolemia; Migraine; PCOS; ap3 - PSHx: 12:01 section; Exploratory laparotomy; ap3 - Immunization history:: Client reports having NOT received the Covid vaccine. Flu vaccine is up to date. - Infectious Disease History:: Denies. - Social history:: Smoking status: Reported history of juuling and/or vaping. Patient uses alcohol, but reports only rare drinking. - Family history:: not pertinent. - Hospitalizations: : No recent hospitalization is reported. ROS: 13:49 Constitutional: Negative for fever, chills, and weight loss, Cardiovascular: Negative rn for chest pain, palpitations, and edema, Respiratory: Negative for shortness of breath, cough, wheezing, and pleuritic chest pain, Abdomen/GI: Negative for abdominal pain, nausea, vomiting, diarrhea, and constipation, Back: Positive for back pain MS/Extremity: Negative for injury and deformity, Skin: Negative for injury, rash, and discoloration, Neuro: Negative for headache, weakness, numbness, tingling, and seizure, Exam: 13:49 Constitutional: This is a well developed, well nourished patient who is awake, alert, rn and in no acute distress. Abdomen/GI: Soft, no focal tenderness or rebound Back: No spinal tenderness. No costovertebral tenderness. Vital Signs: 11:59 BP 157 / 119; Pulse 84; Resp 17; Temp 98.1; Pulse Ox 100% ; Weight 114.31 kg; Height 5 ap3 ft. 2 in. ; Pain 9/10; 12:07 BP 158 / 93; ap3 11:59 Body Mass Index 46.09 (114.31 kg, 157.48 cm) ap3 11:59 Pain Scale: Adult ap3 MDM: 12:02 Medical Screening Exam initiated rn 14:00 Differential diagnosis: Ureterolithiasis. Data reviewed: vital signs, nurses notes, laboratory cureman test result(s), radiologic studies, CT scan, and as a result, I will discharge patient. Counseling: I had a detailed discussion with the patient and/or guardian regarding the historical points, exam findings, and any diagnostic results supporting the discharge/admit diagnosis, lab results, radiology results, the need for outpatient follow up, to return to the emergency department if symptoms worsen or persist or if there are any questions or concerns that arise at home. Response to treatment: the patient's symptoms have mildly improved after treatment. Special discussion: I discussed with the patient/guardian in detail that at this point there is no indication for admission to the hospital. It is understood, however, that if the symptoms persist or worsen the patient needs to return immediately for re-evaluation. 01/22 12:06 Order name: CBC with Diff; Complete Time: 13:48 rn 01/22 12:06 Order name: CMP; Complete Time: 13:48 rn 01/22 12:06 Order name: Lipase; Complete Time: 13:48 rn 01/22 12:06 Order name: Test, Urine; Complete Time: 13:48 rn 01/22 12:06 Order name: Urinalysis w/ reflexes; Complete Time: 13:48 rn 01/22 12:40 Order name: Urine Culture EDMS 01/22 12:06 Order name: CT Stone Protocol; Complete Time: 13:48 rn 01/22 12:06 Order name: IV Saline Lock; Complete Time: 12:24 rn 01/22 12:06 Order name: Labs collected and sent; Complete Time: 12:24 rn Administered Medications: 14:19 Drug: Ketorolac IVP 15 mg IVP once Route: IVP; Site: left antecubital; iw Disposition Summary: 01/23/24 14:01 Discharge Ordered Notes: Location: Home rn Problem: new rn Symptoms: have improved rn Condition: Stable rn Diagnosis - Calculus of kidney rn - Hematuria, unspecified rn - UTI/ Urinary tract infection, site not specified rn Followup: rn - With: Private Physician - When: As needed - Reason: Recheck today's complaints, Re-evaluation by your physician Discharge Instructions: - Discharge Summary Sheet rn - Kidney Stones rn - Renal Colic rn - Urinary Tract Infection, Adult rn Forms: - Medication Reconciliation Form rn - Antibiotic internal investigator - Prescription Opioid Use rn - Patient Portal Instructions rn - Leadership Thank You Letter rn Prescriptions: - Cipro 500 mg Oral Tablet - take 1 tablet ORAL route every 12 hours for 7 days; 14 tablet; Refills: 0, rn Product Selection Permitted - Tramadol 50 mg Oral Tablet - take 1 tablet ORAL route every 8 hours as needed; 12 tablet; Refills: 0, rn Product Selection Permitted Signatures: Dispatcher [employer] Dorothy Eid RN RN iw Cristofer Lorenzana MD MD rn Prokisch, Amanda RN RN ap3
[2024-01-23 14:50] VITALS: TEMP 98.1; O2SAT 100
[2024-01-23 14:52] VITALS: BP 158/93
== END 2024-01-23 14:30 | disposition home or self-care (01) ==
LOC: ER 11:53
DX: N39.0 Urinary tract infection, site not specified (principal); N20.0 Calculus of kidney; R31.9 Hematuria, unspecified; Z88.5 Allergy status to narcotic agent; F41.9 Anxiety disorder, unspecified; E78.00 Pure hypercholesterolemia, unspecified; G43.909 Migraine, unspecified, not intractable, without status migrainosus; E28.2 Polycystic ovarian syndrome
CPT/HCPCS: 36415; 74176; 76377; 80053; 81001; 81025; 83690; 85025; 87077; 87086; 87088; 87186; 96374; 99284

== ENCOUNTER 2024-04-25 16:37 | Emergency (ER) | payer SELFPAY ==
--- OUTSIDE RECORDS SUMMARY | 2024-04-25 16:43 | XMS REPORT | Continuity of Care Document ---
Author Name Unknown Address [address] [facility] [address] [place] [address] [facility] Address [address] [facility] [address] [place] [address] Care Team Providers Care Receiving Checker Name Role Phone Rosa Rodriguez Primary Care Physician [phone] RAMAN MAN Attending Clinician Unavailable RAMAN MAN Attending Clinician Unavailable Doctor Unassigned, Concow Attending Clinician U Raman Valderrama MD Attending Clinician [phone] SHERLEY DIEZ Attending Clinician Unavailable Sherley Diez MD Attending Clinician [phone] JACQUIE NORIEGA Attending Clinician Unavail able FERNY_GCBAMILCAR_Lalita_S Attending Clinician UnavailJOSÉ Gonsalez Attending Clinician Unavailable Doctor Unassigned, Concow Attending Clinician U audra Noriega Jacquie WHITMAN Attending Clinician + Geraldine Galvan MD Attending Clinician [phone] Radiology Attending Clinician Unavailable RADIOLOGY Attending Clinician Unavailable GERALDINE GALVAN Attending Clinician Unavailable Prisca Dinh RN Attending Clinician [phone] Chavo Jose MD Attending Clinician [phone] Rojelio De La Rosa MD Attending Clinician [phone] SHERLEY DIEZ Admitting Clinician Unavailable FERNY_ADONIS_Lalita_S Admitting Clinician Janet De La Rosa MD, Rojelio Admitting Clinician [phone] Payers Payer Name Policy Type Policy Number Effective Date Expirati on Date Source Problems Condition Name Condition Details Condition Category Status Onset Date Resolution Date Last Treatment Date Treating Clinician Comments Source Elevated blood pressure reading without diagnosis of hypertensi on Elevated blood pressure reading without diagnosis of hypertensi on Disease Active 3-29 00:00: 00 [facility] Cellulitis of submental space Cellulitis of submental space Disease Active 7 00:00: 00 [facility] Failure of outpatient treatment Failure of outpatient treatment Disease Active 08-24 00:00: 00 [facility] Missed menses Missed menses Disease Active 10-21 00:00: 00 [facility] History of anxiety History of anxiety Disease Active 10-21 00:00: 00 [facility] Tobacco use disorder Tobacco use disorder Disease Recurre nce 10-21 00:00: 00 [facility] General counseling and advice for contracept jamison management General counseling and advice for contracept jamison management Disease Recurre nce 11-01 00:00: 00 Overview: Formattin g of this note might be different from the original. 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 [facility] Generalize d anxiety disorder Generalize d anxiety disorder Disease Recurre nce 11-01 00:00: 00 [facility] Morbid obesity Morbid obesity Disease Recurre nce 11-01 00:00: 00 [facility] Multiparit y Multiparit y Disease Resolve d 10-21 00:00: 00 2013-10-21 00:00:00 2013-10-21 21:54:10 [facility] Anemia Anemia Disease Resolve d 11-01 00:00: 00 2013-10-21 00:00:00 2021-08-21 00:26:42 [facility] Immune to rubella Immune to rubella Disease Resolve d 11 00:00: 00 2013-10-21 00:00:00 2013-10-21 21:52:43 [facility] Immune to varicella Immune to varicella Disease Resolve d 07-04 00:00: 00 2013-10-21 00:00:00 2013-10-21 21:52:45 [facility] Headache Headache Disease Resolve d 06-06 00:00: 00 2013-10-21 00:00:00 2021-08-21 00:24:19 [facility] Routine follow-up Routine follow-up Disease Resolve d 10-04 00:00: 00 2012-11-01 00:00:00 2012-11-01 14:53:21 [facility] delivery delivered delivery delivered Disease Resolve d 09-17 00:00: 00 2012-11-01 00:00:00 2021-08-21 00:25:57 [facility] Gestationa l hypertensi on Gestationa l hypertensi on Disease Resolve d 09-13 00:00: 00 2012-11-01 00:00:00 2012-11-01 14:53:17 [facility] Abdominal pain complicati ng Abdominal pain complicati ng Disease Resolve d 09-13 00:00: 00 2012-10-04 00:00:00 2012-10-04 13:52:49 [facility] Antepartum genitourin stephen tract infection Antepartum genitourin stephen tract infection Disease Resolve d 08-26 00:00: 00 2012-10-04 00:00:00 2021-08-21 00:25:36 [facility] Vaginal discharge in Vaginal discharge in Disease Resolve d 08-26 00:00: 00 2012-10-04 00:00:00 2012-10-04 09:09:57 [facility] Carpal tunnel syndrome Carpal tunnel syndrome Disease Resolve d 07-22 00:00: 00 2012-10-04 00:00:00 2012-10-04 13:52:51 [facility] Abnormal maternal glucose tolerance, antepartum Abnormal maternal glucose tolerance, antepartum Disease Resolve d 2013-0 6-12 00:00: 00 2012-10-04 00:00:00 2012-10-04 13:52:53 [facility] Supervisio n of other normal Supervisio n of other normal Disease Resolve d 07-16 00:00: 00 2012-10-04 00:00:00 2021-08-21 00:25:00 [facility] Abdominal trauma Abdominal trauma Disease Resolve d 07-16 00:00: 00 2012-10-04 00:00:00 2012-10-04 13:52:36 [facility] Rubella immune Rubella immune Disease Resolve d 07-04 00:00: 00 2012-10-04 00:00:00 2012-10-04 13:52:42 [facility] Nausea Nausea Disease Resolve d 07-04 00:00: 00 2012-10-04 00:00:00 2012-10-04 13:52:38 [facility] Pain in joint, lower leg Pain in joint, lower leg Disease Resolve d 08-29 00:00: 00 2012-10-04 00:00:00 2012-10-04 13:52:45 [facility] UTI (urinary tract infection) UTI (urinary tract infection) Disease Resolve d 06-06 00:00: 00 2012-07-04 00:00:00 2012-07-04 09:51:20 [facility] Epigastric pain Epigastric pain Disease Resolve d 10-31 00:00: 00 2012-07-04 00:00:00 2012-07-04 09:51:12 [facility] Allergies, Adverse Reactions, [...] Date Quantity Comments Source [facility] function 2023-02-27 00:00:00 2023-02-27 00:00:00 [facility] Alcoholic beverage intake 2023-02-27 00:00:00 2023-02-27 00:00:00 .24 /d [facility] Alcohol intake 2023-01-11 00:00:00 2023-01-11 00:00:00 .24 /d [facility] Exposure to SARS-CoV-2 (event) 2021-04-03 00:00:00 2021-05-03 09:51:00 Not sure [facility] Cigarettes smoked current (pack per day) - Reported 2021-05-03 00:00:00 2021-05-03 00:00:00 [facility] Cigarette pack-years 2021-05-03 00:00:00 2021-05-03 00:00:00 [facility] Tobacco use and exposure 2021-05-03 00:00:00 2021-05-03 00:00:00 Smokeless tobacco non-user [facility] Education 2020-08-24 00:00:00 2020-08-24 00:00:00 21 [facility] Tobacco Comment 2020-08-24 00:00:00 2020-08-24 00:00:00 quit last week [facility] History of tobacco use 2012-02-02 00:00:00 2012-02-02 00:00:00 Cigarette Smoker [facility] Sex assigned at 1990 00:00:00 1990 00:00:00 [facility] Smoking Status Start Date Stop Date Source Smokes tobacco daily 2021-05-03 00:00:00 [facility] Medications Ordered Medication Name Filled Medication Name Start Date Stop Date Current Medication? Ordering Clinician Indication Dosage Frequency Signature (SIG) Comments Components Source acetaminoph en (TYLENOL) tablet 975 mg 2022-02 21:00: 00 01-11 19:56 :00 No 975mg 975 mg, Oral, ONCE NOW, 1 dose, On [place] 01/11/23 at 1500, MAKAYLA [facility] ondansetron (ZOFRAN (PF)) injection 4 mg 2022-02 20:00: 00 01-11 19:56 :00 No 4mg 4 mg, Slow IV Push, ONCE, 1 dose, On [place] 01/11/23 at 1400, MAKAYLA [facility] iopamidol (ISOVUE 370-500 mL) injection 80 mL 2022-02 20:00: 00 01-11 20:00 :00 No [id number] 80mL 80 mL, Intravenou s, ONCE, 1 [...] mg EC tablet 2022-02 00:00: 00 Yes [id number] 75mg Take 1 tablet by mouth in the morning and 1 tablet in the evening. Take with meals. [facility] ondansetron 4 mg disintegrat ing tablet 2022-02 00:00: 00 Yes [id number] 4mg Take 1 tablet by mouth every 8 (eight) hours as needed for Nausea and Vomiting (N/V). [facility] acetaminoph en (TYLENOL ARTHRITIS PAIN) 650 mg CR tablet 2022-02 00:00: 00 Yes [id number] 650mg Take 1 tablet by mouth every 8 (eight) hours as needed for Pain. [facility] amoxicillin -clavulanat e 875-125 mg per tablet 2022-02 00:00: 00 01-22 05:59 :00 No [id number] 1{tbl} Take 1 tablet by mouth every 12 (twelve) hours for 10 days. [facility] dicyclomine 20 mg tablet 09-25 00:00: 00 05-03 00:00 :00 No [id number] 20mg Take 1 tablet by mouth every 6 (six) hours as needed for Abdominal pain. [facility] ondansetron (ZOFRAN) 4 mg tablet 09-25 00:00: 00 05-03 00:00 :00 No [id number] 4mg Take 1 tablet by mouth every 8 (eight) hours as needed for Nausea and Vomiting (N/V). [facility] omeprazole 20 mg capsule 08-27 00:00: 00 05-03 00:00 :00 No [id number] 20mg Take 1 capsule by mouth daily. [facility] sulfamethox azole-trime thoprim 800-160 mg per tablet 08-26 00:00: 00 05-03 00:00 :00 No [id number] 1{tbl} Take 1 tablet by mouth 2 [...] Status Comments Source TDAP 2012-09-25 00:00:00 Completed [facility] TDAP 2012-09-25 00:00:00 Completed [facility] Meningococcal Vaccine 2011-01-25 00:00:00 Completed [facility] Meningococcal Vaccine 2011-01-25 00:00:00 Completed [facility] Rubella 2010-04-01 00:00:00 Completed [facility] Rubella 2010-04-01 00:00:00 Completed [facility] Td 2006-02-05 00:00:00 Completed [facility] TD, NOS 2006-02-05 00:00:00 Completed Varicella (varivax)(chicken pox) 1996-02-06 00:00:00 Completed [facility] Varicella (varivax)(chicken pox) 1996-02-06 00:00:00 Completed Meningococcal Vaccine Unknown Completed [facility] Rubella Unknown Completed [facility] TD, NOS Unknown Completed [facility] Varicella (varivax)(chicken pox) Unknown Completed [facility] TDAP Unknown Completed [facility] Vital Signs Vital Name Observation Time Observation Value Comments S ource Systolic blood pressure 2023-01-11 20:00:00 144 mm[Hg] [facility] Diastolic blood pressure 2023-01-11 20:00:00 100 mm[Hg] [facility] Heart rate 2023-01-11 20:00:00 74 /min [facility] Respiratory rate 2023-01-11 20:00:00 16 /min [facility] Oxygen saturation in Arterial blood by Pulse oximetry 2023-01-11 20:00:00 97 /min [facility] Body temperature 2023-01-11 18:04:00 37.11 Ann-Marie [facility] Body height 2023-01-11 18:04:00 157.5 cm [facility] Body weight 2023-01-11 18:04:00 117.935 kg [facility] BMI 2023-01-11 18:04:00 47.55 kg/m2 [facility] Systolic blood pressure 2021-05-03 14:52:00 144 mm[Hg] [facility] Diastolic blood pressure 2021-05-03 14:52:00 98 mm[Hg] [facility] Heart rate 2021-05-03 14:52:00 75 /min [facility] Body temperature 2021-05-03 14:51:00 36.22 Ann-Marie [facility] Respiratory rate 2021-05-03 14:51:00 20 /min [facility] Body height 2021-05-03 14:51:00 157.5 cm [facility] Body weight 2021-05-03 14:51:00 116.376 kg [facility] BMI 2021-05-03 14:51:00 46.93 kg/m2 [facility] Systolic blood pressure 2021-05-03 14:52:00 144 mm[Hg] [facility] Diastolic blood pressure 2021-05-03 14:52:00 98 mm[Hg] [facility] Heart rate 2021-05-03 14:52:00 75 /min [facility] Body temperature 2021-05-03 14:51:00 36.22 Ann-Marie [facility] Respiratory rate 2021-05-03 14:51:00 20 /min [facility] Body height 2021-05-03 14:51:00 157.5 cm [facility] Body weight 2021-05-03 14:51:00 116.376 kg [facility] BMI 2021-05-03 14:51:00 46.93 kg/m2 [facility] Procedures Procedure Date / Time Performed Performing Clinicia n Source CT SOFT TISSUE NECK W CONTRAST 2023-01-11 19:00:00 Sherlye Diez [facility] COMP. METABOLIC PANEL (22644) 2023-01-11 18:45:00 Sherley Diez [facility] CBC WITH DIFF 2023-01-11 18:45:00 Sherley Diez [facility] POCT TEST 2023-01-11 18:39:00 Sravan Diez [facility] CONSENT/REFUSAL FOR DIAGNOSIS AND TREATMENT 2023-01-11 18:00:13 Doctor Unassigned, Concow [facility] LAB ONLY PAP SMEAR-LIQUID BASED 2021-05-03 16:08:00 Jacquie Noriega [facility] PAP SMEAR-LIQUID BASED-CP 2021-05-03 16:08:00 Jacquie Noriega [facility] Encounters Start Date/Time End Date/Time Encounter Type Admission Type Attending Clinicians Care Facility Care Department Encounter ID Source 2020-12-06 17:05:[address] [facility] [id number] [facility] 2024-02-15 00:00:00 2024-03-22 18:21:46 Patient Secure Msg Doctor Unassigned, Concow Doctor Unassigned, Concow [facility] 1.2.840.114 350.1.13.10 4.2.7.2.686 [id number] [facility] 2024-03-06 15:00:00 2024-03-06 15:00:00 Outpatient R RAMAN MAN DIVYA [facility] [id number] [facility] 2024-02-29 00:00:00 2024-02-29 16:42:58 Telephone Raman Man [facility] ([facility]) 1.2.840.114 350.1.13.10 4.2.7.2.686 [id number] [facility] 2024-02-28 00:00:00 2024-02-28 17:24:06 Telephone Raman Man [facility] ([facility]) 1.2.840.114 350.1.13.10 4.2.7.2.686 [id number] [facility] 2024-02-21 00:00:00 2024-02-21 17:23:53 Telephone Raman Man [facility] ([facility]) 1.2.840.114 350.1.13.10 4.2.7.2.686 [id number] [facility] 2023-01-11 12:05:00 2023-01-11 14:34:00 Emergency X SHERLEY DIEZ [facility] ERT [id number] [facility] 2023-01-11 12:05:00 2023-01-11 14:34:00 Emergency Sherley Diez [facility] 1.840.114 350.1.13.10 4.2.7.2.686 [id number] [facility] 2023-01-01 09:15:00 2023-01-01 09:15:00 Outpatient JACQUIE WU [facility] [id number] [facility] 2022-12-02 00:00:00 2022-12-02 00:00:00 Outpatient GC_GCBZW_Ka diyala_S [facility]IV [facility] [id number] [facility] 2021-12-03 12:38:34 2021-12-03 12:38:34 Outpatient [facility] [id number] [place] [place] 2021-07-05 13:00:00 2021-07-05 13:00:00 Outpatient JOSÉ PURVIS [facility] [id number] [facility] 2021-06-03 13:30:00 2021-06-03 13:30:00 [id number] 2021-05-23 00:00:00 2021-05-23 00:00:00 Orders Only Doctor Unassigned, Concow [facility] .840.114 350.1.13.10 4.2.7.2.686 [id number] [facility] 2021-05-19 00:00:00 2021-05-19 00:00:00 Telephone Jacquie Noriega [facility] PERSONAL DEVELOPMENT EDUCATOR [facility] 1..840.114 350.1.13.10 4.2.7.2.686 [id number] [facility] 2021-05-03 09:30:00 2021-05-03 10:51:04 Outpatient JACQUIE WU [facility] [id number] [facility] 2021-05-03 09:30:00 2021-05-03 10:51:04 Office Visit Jacquie Noriega [facility] PERSONAL DEVELOPMENT EDUCATOR [facility] 1.840.114 350.1.13.10 4.2.7.2.686 [id number] [facility] 2021-05-03 09:30:00 2021-05-03 10:51:04 Outpatient R ALLEN JACQUIE [facility] [id number] [facility] 2021-05-03 09:30:00 2021-05-03 10:51:04 Outpatient R ALLENJUANJACQUIE [facility] [id number] [facility] 2021-05-03 09:30:00 2021-05-03 10:51:04 Office Visit Jacquie Noriega [facility] PERSONAL DEVELOPMENT EDUCATOR [facility] 1.0.114 350.1.13.10 4.2.7.2.686 [id number] [facility] 2021-05-03 00:00:00 2021-05-03 00:00:00 Orders Only Doctor Unassigned, Concow [facility] 1.840.114 350.1.13.10 4.2.7.2.686 [id number] [facility] 2021-05-03 00:00:00 2021-05-03 00:00:00 Telephone Jacquie Noriega [facility] PERSONAL DEVELOPMENT EDUCATOR [facility] 1.0.114 350.1.13.10 4.2.7.2.686 [id number] [facility] 2021-05-03 00:00:00 2021-05-03 00:00:00 Telephone Jacquie Noriega [facility] PERSONAL DEVELOPMENT EDUCATOR [facility] 1.2.840.114 350.1.13.10 4.2.7.2.686 [id number] [facility] 2020-09-24 23:09:00 2020-09-25 04:02:[address] [facility] 1.2.840.114 350.1.13.10 4.2.7.2.686 [id number] [facility] 2020-09-24 23:09:00 2020-09-25 04:02:[address] [facility] 1.2.840.114 350.1.13.10 4.2.7.2.686 [id number] 2020-09-02 15:30:00 2020-09-02 23:59:00 Hospital Encounter Radiology [facility] 1.2.840.114 350.1.13.10 4.2.7.2.686 [id number] [facility] 2020-09-02 15:30:00 2020-09-02 23:59:00 Hospital Encounter Radiology [facility] 1.2.840.114 350.1.13.10 4.2.7.2.686 [id number] 2020-09-02 00:00:00 2020-09-02 00:00:00 Outpatient R RADIOLOGY [facility] [id number] [facility] 2020-08-27 21:50:00 2020-08-27 23:10:[address] [facility] 1.2.840.114 350.1.13.10 4.2.7.2.686 [id number] [facility] 2020-08-27 21:50:00 2020-08-27 23:10:[address] [facility] 1.2.840.114 350.1.13.10 4.2.7.2.686 [id number] 2020-08-27 21:50:00 2020-08-27 21:50:00 Emergency X GERALDINE GALVAN [facility] ERT [id number] [facility] 2020-08-27 00:00:00 2020-08-27 00:00:00 Transition of Care Prisca Dinh 1.2.840.114 350.1.13.10 4.2.7.2.686 [id number] [facility] 2020-08-27 00:00:00 2020-08-27 00:00:00 Transition of Care Prisca Dinh 1.2.840.114 350.1.13.10 4.2.7.2.686 [id number] 2020-08-24 14:12:00 2020-08-26 13:37:00 [facility] 1.2.840.114 350.1.13.10 4.2.7.2.686 [id number] 2020-08-24 14:12:00 2020-08-26 13:37:00 [facility] 1.2.840.114 350.1.13.10 4.2.7.2.686 [id number] [facility] 2020-08-24 13:52:00 2020-08-24 13:52:00 Emergency X [facility] ERT [id number] [facility] 2020-08-24 00:00:00 2020-08-24 00:00:00 Orders Only Doctor Unassigned, Concow [facility] 1.2.840.114 350.1.13.10 4.2.7.2.686 [id number] 2020-08-24 00:00:00 2020-08-24 00:00:00 Orders Only Doctor Unassigned, Concow [facility] 1.2.840.114 350.1.13.10 4.2.7.2.686 [id number] [facility] Results Test Description Test Time Test Comments Results Result Co mments Source [facility] WITH [id number] 19:29:18* Test Item Value Reference Range Interpretation [...] 33.2 g/dL 31.6-35.1 RDW-SD (test code = 59085-1) 38.3 fL 39.0-49.9 L RDW-CV (test code = 788-0) 12.6 % 12.0-15.5 PLT (test code = 777-3) 345 See_Comment [Automated messa ge] The system which generated this result transmitted reference range: 166 - 358 10*3/?L. The reference range was not used to interpret this result as normal/abnormal. MPV (test code = 62765-7) 8.6 fL 9.5-12.9 L NRBC/100 WBC (test code = 4412630747) 0.0 See_Comment [Automated me ssage] The system which generated this result transmitted reference range: 0.0 - 10.0 /100 WBCs. The reference range was not used to interpret this result as normal/abnormal. NRBC x10^3 (test code = 4840707005) See_Comment [Automated messa ge] The system which generated this result transmitted reference range: 10*3/?L. The reference range was not used to interpret this result as normal/abnormal. GRAN MAT (NEUT) % (test code = 770-8) 70.2 % IMM GRAN % (test code = 8070869498) 0.40 % LYMPH % (test code = 736-9) 21.9 % MONO % (test code = 5905-5) 4.4 % EOS % (test code = 713-8) 2.6 % BASO % (test code = 706-2) 0.5 % GRAN MAT x10^3(ANC) (test code = 9744425676) 5.47 10*3/uL 1.88-7.09 IMM GRAN x10^3 (test code = 8707506450) 0.03 10*3/uL 0.00-0.06 LYMPH x10^3 (test code = 731-0) 1.70 10*3/uL 1.32-3.29 MONO x10^3 (test code = 742-7) 0.34 10*3/uL 0.33-0.92 EOS x10^3 (test code = 711-2) 0.20 10*3/uL 0.03-0.39 BASO x10^3 (test code = 704-7) 0.04 10*3/uL 0.01-0.07 Lab Interpretation (test code = 80775-1) [id number]00* Test Item Value Reference Range Interpretation Comme nts POCT PREG (test code = 1605) Negative On board controls acceptable with C Line (test code = 3574) Yes POCT PREG LOT # (test code = 3575) [id number] POCT PREG TEST DATE ( test code = 3576) 04/15/2024 Lab Interpretation (test cod e = 85258-7) Normal [facility] Notes Date/Time Note Provider Source 2024-02-29 16:35:08 Pt identified by name and . Pt reschedule appt due to new job. Pt scheduled for lab appointment. Pt confirmed date & time. AT [place] RN [facility] 2024-02-28 17:22:28 Chart reviewed. Labs ordered for upcoming Nephrology appointment per guidelines. MyChart message and/or letter sent to patient as an appointment reminder. AT [place] RN [facility] 2024-02-21 17:21:37 Chart reviewed. Labs ordered for upcoming Nephrology appointment per guidelines. [employer] message and/or letter sent to patient as an appointment reminder. [facility]
[2024-04-25 19:35] LABS: Specific Gravity 1.028 (1.005-1.030); Sqamous Epithelial <5 /HPF (None Seen); Urine Bacteria None Seen /HPF (<20); Urine Bilirubin NEGATIVE (Negative); Urine Blood 1+ (Negative); Urine Clarity Turbid (Clear); Urine Color Light-Yellow (Yellow); Urine Culture Reflex Order NOT NEEDED; Urine Glucose NEGATIVE (Negative); Urine Ketones NEGATIVE (Negative); Urine Microscopic Reflex YN ORDER UMIC; Urine Mucus 1+ /HPF (None Seen); Urine Nitrite NEGATIVE (Negative); Urine Protein NEGATIVE (Negative); Urine RBC <5 /HPF (None Seen); Urine Urobilinogen Normal (Normal); Urine WBC <5 /HPF (<5); Urine WBC Clump Rare /HPF (None Seen); Urine Yeast (Budding) Trace /HPF (None Seen); Urine pH 6.5 (5.0-7.0)
[2024-04-25 19:37] LABS: Specific Gravity 1.028 (1.005-1.030)
[2024-04-25 19:39] LABS: Absolute Basophils 0.1 K/uL (0-0.5); Absolute Eosinophils 0.1 K/uL (0-0.5); Absolute Lymphocytes (CBC) 2.3 K/uL (0.7-4.9); Absolute Monocytes 0.5 K/uL (0.1-1.3); Absolute Neutrophil 6.3 K/uL (1.8-8.0); Basophils % 1.2 % (0-1.3); Eosinophils % 1.1 % (0-4.4); Hematocrit 37.9 % (36.0-45.0); Lymphocytes % 24.3 % (15.3-44.8); MCH 28.1 pg (27.0-35.0); MCHC 34.3 g/dL (32.0-36.0); MCV 81.9 fL (80-100); MPV 6.7 fL (7.6-11.3); Monocytes % 5.3 % (3.3-12.3); Neutrophils % 68.1 % (41.7-73.7); Platelets 339 thou/uL (152-406); RBC Red Blood Cell Count 4.62 M/uL (3.86-4.86); Red Cell Distribution Width 13.6 % (12.1-15.2)
[2024-04-25 19:54] LABS: Albumin 3.7 g/dL (3.4-5.0); Globulin 3.8 g/dL (2.3-3.5); Protein, Total 7.5 g/dL (6.4-8.2)
[2024-04-25] MEDS ORDERED: ONDANSETRON 4 MG/2 ML VIAL ONE (20:24)
[2024-04-25] MEDS ORDERED: NA CHLORIDE 0.9% 1,000 ML ONE (20:24)
[2024-04-25] MEDS ORDERED: KETOROLAC 30 MG/ML INJ ONE (20:24)
--- NOTE | 2024-04-25 21:05 | RAD REPORT ---
EXAMINATION: CT ABDOMEN AND PELVIS WITHOUT CONTRAST CLINICAL INDICATION: HEMATURIA TECHNIQUE: CT abdomen and pelvis was performed, without IV contrast, as per department protocol. Axia l, sagittal and coronal reconstructions were obtained. One or more of the following dose reduction techniques were used: Automated exposure control, adjustment of the mA and kV according to the patien t size, and iterative reconstruction. Unless otherwise specified, incidental findings do not require dedicated imaging follow-up. COMPARISON: No prior exam. FINDINGS: The lack of intravenous contrast limits the sensitivity of this exam for evaluation of solid visceral organs, vascular structures, and retroperitoneum. LOWER CHEST: The visualized lung bases are clear. LIVER:Normal in size and contour. No focal lesion. Grossly unremarkable gallbladder. SPLEEN: Normal size. No focal lesion. PANCREAS: No mass, ductal dilation, or martha-pancreatic fluid. ADRENALS: Normal; no mass. KIDNEYS AND URETERS: Punctate calculus right kidney. No hydronephrosis bilaterally. URINARY BLADDER: Normal contour. GASTROINTESTINAL TRACT: No evidence of bowel obstruction, significant free fluid, free air or abscess . APPENDIX: Normal appendix. LYMPH NODES: No lymphadenopathy. MUSCULOSKELETAL: No acute or suspicious osseous abnormality. ADDITIONAL FINDINGS: 3 cm right ovarian follicle. IMPRESSION: Punctate right renal calculus. No hydronephrosis.
[2024-04-25] MEDS ORDERED: FENTANYL CITR 100 MCG/2 ML ONE (22:54)
--- NOTE | 2024-04-26 00:33 | EDPHYS ---
Physician Documentation [facility] Name: Omayra Parra Age: 33 yrs Sex: Female : 1990 Arrival Date: 04/25/2024 Time: 16:37 Bed 17 Private MD: ED Physician Mela Dubois HPI: 04/25 17:36 This 33 yrs old Female presents to ER via Ambulatory with complaints of Low Back Pain, kb Urinary Problem. 17:36 Pt is a 33 year old female who presents for hematuria that started yesterday. Denies kb dysuria, fever, n/v. Reports pain to groin and low back that started yesterday (worse today) with pain worse on left side and left flank. . Historical: - Allergies: 17:30 Morphine (Vomiting); iw - PMHx: 17:30 Migraine; Hypercholesterolemia; Anxiety; PCOS; iw - PSHx: 17:30 section; Exploratory laparotomy; iw - Immunization history:: Adult Immunizations up to date. - Infectious Disease History:: Denies. - Social history:: Smoking status: . ROS: 17:39 Constitutional: As per HPI kb Exam: 17:40 Constitutional: This is a well developed, well nourished patient who is awake, alert, kb and in no acute distress. Head/Face: Normocephalic, atraumatic. ENT: Moist Mucous membranes Cardiovascular: Regular rate Respiratory: Respirations even and unlabored. No increased work of breathing. Talking in full sentences Skin: Warm, dry with normal turgor. Normal color. MS/ Extremity: Pulses equal, no cyanosis. Neurovascular intact. Full, normal range of motion. Neuro: Awake and alert, GCS 15, oriented to person, place, time, and situation. 17:40 Abdomen/GI: Inspection: abdomen appears normal, Bowel sounds: normal, Palpation: soft, in all quadrants, moderate abdominal tenderness, in the left lower quadrant, 17:40 Back: CVA tenderness, that is moderate, is noted on the left, Vital Signs: 17:27 BP 146 / 73; Pulse 85; Resp 16; Temp 98.1; Pulse Ox 100% on R/A; Weight 116.57 kg; iw Height 5 ft. 3 in. ; Pain 8/10; 19:32 BP 151 / 84; Pulse 65; Resp 19; Pulse Ox 98% on R/A; ay 20:00 BP 144 / 88; Pulse 68; Resp 17; Pulse Ox 98% ; ay 21:07 BP 161 / 99; Pulse 62; Resp 20; Pulse Ox 99% ; ay 22:40 BP 147 / 83; Pulse 64; Resp 16; Pulse Ox 96% on R/A; ay 04/26 00:00 BP 129 / 72; Pulse 60; Resp 18; Pulse Ox 98% on R/A; ay 04/25 17:27 Body Mass Index 45.53 (116.57 kg, 160.02 cm) iw 04/25 17:27 Pain Scale: Adult iw MDM: 04/25 16:53 Medical Screening Exam initiated kb 17:40 Data reviewed: vital signs, nurses notes. kb 22:53 Differential diagnosis: kidney stone, nonspecific abdominal pain, ovarian cyst, urinary kb tract infection. ED course: Discussed all results with patient. Requests ultrasound to evaluate ovaries due to history of PCOS.. 04/26 00:33 Counseling: I had a detailed discussion with the patient and/or guardian regarding the kb historical points, exam findings, and any diagnostic results supporting the discharge/admit diagnosis, lab results, radiology results, the need for outpatient follow up, an OB/Gyne specialist, to return to the emergency department if symptoms worsen or persist or if there are any questions or concerns that arise at home. 00:33 ED course: US tech reports ovarian cyst to right side with flow. . kb 04/25 17:42 Order name: CBC with Diff; Complete Time: 19:44 kb 04/25 17:42 Order name: CMP; Complete Time: 19:59 kb 04/25 17:42 Order name: Lipase; Complete Time: 19:59 kb 04/25 17:42 Order name: Test, Urine; Complete Time: 19:38 kb 04/25 17:42 Order name: Urinalysis w/ reflexes; Complete Time: 19:38 kb 04/25 17:42 Order name: CT Stone Protocol; Complete Time: 21:07 kb 04/25 22:34 Order name: US Transvaginal Study (Probe) kb 04/25 17:42 Order name: IV Saline Lock; Complete Time: 19:29 kb 04/25 17:42 Order name: Labs collected and sent; Complete Time: 19:29 kb Administered Medications: 04/25 20:46 Drug: NS 0.9% IV 1000 ml IV at 1 bolus Per protocol; to be given as a bolus over 60 ay minutes Route: IV; Rate: 1 bolus; Site: right antecubital; 04/26 01:00 Follow up: IV Status: Completed infusion ay 04/25 20:47 Drug: TORadol - Ketorolac IVP 15 mg IVP once Route: IVP; Site: right antecubital; ay 04/26 01:00 Follow up: Response: No adverse reaction ay 04/25 20:47 Drug: Ondansetron IVP 4 mg IVP once; over 2 minutes Route: IVP; Site: right antecubital;ay 04/26 01:00 Follow up: Response: No adverse reaction ay 04/25 23:02 Drug: fentaNYL (PF) IVP 25 mcg IVP once Route: IVP; Site: right antecubital; ay 04/26 01:00 Follow up: Response: No adverse reaction ay 01:00 Drug: Acetaminophen-Codeine PO (300 mg-30 mg) 1 tablet PO once; RASS on ADMIN: Combtv4, ay Very Agttd3, Agttd2, Rstlss1, AlertClm0, Drwsy-1, Lt Sdtn-2, Mod Sdtn-3, Dp Sdtn-4, UnArsble-5 Route: PO; 01:00 Follow up: Response: Medication administered at discharge. ay Disposition: 04/25 21:02 Co-signature as Attending Physician, Mela Dubois MD I reviewed the patient's care gb1 provided by the Advanced Practice Provider and agree with the diagnosis and treatment plan. Disposition Summary: 04/26/24 00:33 Discharge Ordered Notes: Location: Home kb Condition: Stable kb Diagnosis - Other ovarian cysts kb Followup: kb - With: Emergency Department - When: As needed - Reason: Worsening of condition Followup: kb - With: Private Physician - When: 2 - 3 days - Reason: Recheck today's complaints, Continuance of care, Re-evaluation by your physician Discharge Instructions: - Discharge Summary Sheet kb - Ovarian Cyst, [id number] kb Forms: - Work release form kb - Medication Reconciliation Form kb - Antibiotic Education kb - Prescription Opioid Use kb - Patient Portal Instructions kb - Leadership Thank You Letter kb Prescriptions: - Diclofenac Sodium 75 mg Oral tablet, delayed release (enteric coated) - take 1 tablet ORAL route 2 times per day As needed; 30 tablet; Refills: 0, kb Product Selection Permitted Signatures: Dispatcher [employer] EDRama Nichols, NIKOLAI-Saima BLACKSMITH ASSISTANT-Dorothy Patel, RN RN iw Mela Dubois MD MD gb1 Willis Hein RN RN ay Corrections: (The following items were deleted from the chart) 17:42 17:42 CBC+H.LAB.BRZ ordered. EDMS EDMS 17:42 17:42 COMPREHENSIVE METABOLIC PANEL+C.LAB.BRZ ordered. EDMS EDMS 17:42 17:42 LIPASE+C.LAB.BRZ ordered. EDMS EDMS 17:42 17:42 Test, Urine+UC.LAB.BRZ ordered. EDMS EDMS 17:42 17:42 Urinalysis+U.LAB.BRZ ordered. EDMS EDMS 17:42 17:42 Stone Protocol+CT.RAD.BRZ ordered. EDMS EDMS 22:35 22:35 Transvaginal Study (Probe)+US.RAD.BRZ ordered. EDMS EDMS
--- NOTE | 2024-04-26 00:33 | ER ---
Nurse's Notes [facility] Name: Omayra Parra Age: 33 yrs Sex: Female : 1990 Arrival Date: 04/25/2024 Time: 16:37 Bed 17 [facility] MD: Diagnosis: Other ovarian cysts Presentation: 04/25 17:27 Chief complaint: Patient states: yesterday had some brown/red discharge when she used iw the bathroom, today there was more discharge but believes it is coming from her urethra , has had previous hx of kidney stones. Coronavirus screen: At this time, the client does not indicate any symptoms associated with coronavirus-19. Ebola Screen: No symptoms or risks identified at this time. Initial Sepsis Screen: Does the patient meet any 2 criteria? No. Patient's initial sepsis screen is negative. Does the patient have a suspected source of infection? No. Patient's initial sepsis screen is negative. Risk Assessment: Do you want to hurt yourself or someone else? Patient reports no desire to harm self or others. Onset of symptoms was April 23, 2024. 17:27 Method Of Arrival: Ambulatory iw 17:27 Acuity: GAYE 3 iw Historical: - Allergies: 17:30 Morphine (Vomiting); iw - PMHx: 17:30 Migraine; Hypercholesterolemia; Anxiety; PCOS; iw - PSHx: 17:30 section; Exploratory laparotomy; iw - Immunization history:: Adult Immunizations up to date. - Infectious Disease History:: Denies. - Social history:: Smoking status: . Screenin:50 [facility] ED Fall Risk Assessment (Adult) History of falling in the last 3 months, ay including since admission No falls in past 3 months (0 pts) Confusion or Disorientation No (0 pts) Intoxicated or Sedated No (0 pts) Impaired Gait No (0 pts) Mobility Assist Device Used No (0 pt) Altered Elimination No (0 pt) Score/Fall Risk Level 0 - 2 = Low Risk Oriented to surroundings, Maintained a safe environment, Educated pt \T\ family on fall prevention, incl call for assistance when getting out of bed. Abuse screen: Denies threats or abuse. Nutritional screening: No deficits noted. Tuberculosis screening: No symptoms or risk factors identified. Assessment: 20:50 General: Appears in no apparent distress. uncomfortable, Behavior is calm, cooperative. ay Pain: Complains of pain in left lower back, left groin. Neuro: Level of Consciousness is awake, alert, obeys commands, Oriented to person, place, time, situation, Speech is normal. Cardiovascular: Reports nausea, chest tightness. Respiratory: Airway is patent Respiratory effort is even, unlabored, Respiratory pattern is regular, symmetrical. GI: Reports nausea. : Reports discharge, from vagina that is bloody, pain in lower back Denies burning with urination, pain with urination. EENT: No signs and/or symptoms were reported regarding the EENT system. Derm: No signs and/or symptoms reported regarding the dermatologic system. Vital Signs: 17:27 BP 146 / 73; Pulse 85; Resp 16; Temp 98.1; Pulse Ox 100% on R/A; Weight 116.57 kg; iw Height 5 ft. 3 in. ; Pain 8/10; 19:32 BP 151 / 84; Pulse 65; Resp 19; Pulse Ox 98% on R/A; ay 20:00 BP 144 / 88; Pulse 68; Resp 17; Pulse Ox 98% ; ay 21:07 BP 161 / 99; Pulse 62; Resp 20; Pulse Ox 99% ; ay 22:40 BP 147 / 83; Pulse 64; Resp 16; Pulse Ox 96% on R/A; ay 04/26 00:00 BP 129 / 72; Pulse 60; Resp 18; Pulse Ox 98% on R/A; ay 04/25 17:27 Body Mass Index 45.53 (116.57 kg, 160.02 cm) iw 04/25 17:27 Pain Scale: Adult ED Course: 04/25 16:41 Patient arrived in ED. im 16:45 Rama Engel FNP-C is PHCP. kb 16:45 Mela Dubois MD is Attending Physician. kb 17:30 Triage completed. iw 17:45 Radiology exam delayed due to test not completed at this time. jc4 19:13 Radiology exam delayed due to test not completed at this time. nj 19:29 CBC with Diff Sent. af3 19:29 CMP Sent. af3 19:29 Lipase Sent. af3 19:29 Test, Urine Sent. af3 19:29 Urinalysis w/ reflexes Sent. af3 19:29 Inserted saline lock: 20 gauge in left antecubital area, using aseptic technique. Blood af3 collected. Flushed with 10 mL NS. 20:20 Willis Hein, RN is Primary Nurse. ay 20:58 CT Stone Protocol In Process Unspecified. EDMS 23:34 US Transvaginal Study (Probe) In Process Unspecified. EDMS 04/26 00:40 IV discontinued, intact, bleeding controlled, No redness/swelling at site. Pressure ay dressing applied. Administered Medications: 04/25 20:46 Drug: NS 0.9% IV 1000 ml IV at 1 bolus Per protocol; to be given as a bolus over 60 ay minutes Route: IV; Rate: 1 bolus; Site: right antecubital; 04/26 01:00 Follow up: IV Status: Completed infusion ay 04/25 20:47 Drug: TORadol - Ketorolac IVP 15 mg IVP once Route: IVP; Site: right antecubital; ay 04/26 01:00 Follow up: Response: No adverse reaction ay 04/25 20:47 Drug: Ondansetron IVP 4 mg IVP once; over 2 minutes Route: IVP; Site: right antecubital;ay 04/26 01:00 Follow up: Response: No adverse reaction ay 04/25 23:02 Drug: fentaNYL (PF) IVP 25 mcg IVP once Route: IVP; Site: right antecubital; ay 04/26 01:00 Follow up: Response: No adverse reaction ay 01:00 Drug: Acetaminophen-Codeine PO (300 mg-30 mg) 1 tablet PO once; RASS on ADMIN: Combtv4, ay Very Agttd3, Agttd2, Rstlss1, AlertClm0, Drwsy-1, Lt Sdtn-2, Mod Sdtn-3, Dp Sdtn-4, UnArsble-5 Route: PO; 01:00 Follow up: Response: Medication administered at discharge. ay Outcome: 00:33 Discharge ordered by MD. friedman 00:40 Discharged to home ambulatory, ay 00:40 Condition: stable 00:40 Discharge instructions given to patient, Instructed on discharge instructions, follow up and referral plans. Demonstrated understanding of instructions, follow-up care, medications, Prescriptions given X 1, 01:37 Patient left the ED. ay Signatures: Dispatcher [employer] EDRama Nichols FNP-C CERTIFIED RECREATIONAL THERAPIST-Dorothy Patel RN RN Jesus Cristina Itzel im Crisp, Justin [email or web address] Elodia Beth3 Willis Hein RN RN ay Corrections: (The following items were deleted from the chart) 04/25 17:31 17:27 BP 146 / 73; Pulse 85bpm; Resp 16bpm; Pulse Ox 100% RA; Temp 98.1F; ana perez
[2024-04-26] MEDS ORDERED: CODEINE 30MG/APAP 300MG TAB ONE (00:51)
--- NOTE | 2024-04-26 01:11 | RAD REPORT ---
EXAM: US Pelvis Transvaginal CLINICAL HISTORY: The patient is 33 years old and is Female; ABD PAIN TECHNIQUE: Real-time transvaginal pelvic ultrasound with image documentation. Transvaginal imaging was used for better evaluation of the endometrium and adnexa. COMPARISON: No relevant prior studies available. FINDINGS: UTERUS/CERVIX: The uterus measures 9.1 x 4.4 x 3.6 cm. The endometrium measures 1.3 cm. No myom etrial mass. RIGHT OVARY: The right ovary measures 4.1 x 3.6 x 3.6 cm. A right ovarian cysts measuring 2.2 x 3.0 x 2.4 cm is present. Normal blood flow. LEFT OVARY: The left ovary measures 3.9 x 2.3 x 3.2 cm. Normal blood flow. FREE FLUID: No free fluid. BLADDER: Empty bladder which cannot be evaluated with this probe. IMPRESSION: 1. No evidence of torsion. 2. Right ovarian cyst. No follow-up imaging is recommended. Electronically signed by: Teena Rainey MD 04/26/2024 01:06 AM [facility] Due to temporary technical issues with the PACS/BitInstant scribe reporting system, reports are being sign ed by the in-house radiologist without review as a courtesy to ensure prompt reporting the interpreting rad iologist is fully responsible for the content of the report. Transcribed Date/Time: 04/26/2024 1:11 AM
[2024-04-26 01:55] VITALS: TEMP 98.1
[2024-04-26 02:06] VITALS: BP 129/72; O2SAT 98
== END 2024-04-26 01:37 | disposition home or self-care (01) ==
LOC: ER 16:37
DX: N83.299 Other ovarian cyst, unspecified side (principal)
CPT/HCPCS: 36415; 74176; 76377; 76830; 80053; 81001; 81025; 83690; 85025; 96361; 96374; 96375; 99284; J2405; J3010; J7030

== ENCOUNTER 2024-05-16 21:45 | Emergency (ER) | payer SELFPAY ==
--- OUTSIDE RECORDS SUMMARY | 2024-05-16 21:49 | XMS REPORT | Continuity of Care Document ---
Author Name Unknown Address [address] [place] [address] [facility] Address [address] [place] [address] Care Team Providers Care Social Work Administrator Name Role Phone CARMELINA HANLEY Primary Care Physician Unavailab RAMAN Bar Attending Clinician Unavailable RAMAN MAN Attending Clinician Unavailable Saulo Taveras MD Attending Clinician [phone] GARY TAVERAS Attending Clinician Unavailable Gary Warner Attending Clinician [phone] Doctor Unassigned, [place] Attending Clinician U Raman Valderrama MD Attending Clinician [phone] HSERLEY DIEZ Attending Clinician Unavailable Sherley Diez MD Attending Clinician [phone] JACQUIE NORIEGA Attending Clinician Unavail able GC_GCBZW_Teresa_S Attending Clinician UnavailJOSÉ Gonsalez Attending Clinician Unavailable Doctor Unassigned, [place] Attending Clinician U Jacquie Johnson Attending Clinician + Geraldine Galvan MD Attending Clinician [phone] Radiology Attending Clinician Unavailable RADIOLOGY Attending Clinician Unavailable GERALDINE GALVAN Attending Clinician Unavailable Prisca Dinh RN Attending Clinician [phone] Chavo Jose MD Attending Clinician [phone] Rojelio De La Rosa MD Attending Clinician [phone] NATI DIEZS Admitting Clinician Unavailable [email or web address]_S Admitting Clinician UnavailRojelio Brush MD Admitting Clinician [phone] Payers Payer Name Policy Type Policy Number Effective Date Expirati on Date Source Problems Condition Name Condition Details Condition Category Status Onset Date Resolution Date Last Treatment Date Treating Clinician Comments Source Elevated blood pressure reading without diagnosis of hypertensi on Elevated blood pressure reading without diagnosis of hypertensi on Disease Active 3-29 00:00: 00 [facility] Failure of outpatient treatment Failure of outpatient treatment Disease Active 08-24 00:00: 00 [facility] History of anxiety History of anxiety Disease Active 10-21 00:00: 00 [facility] Tobacco use disorder Tobacco use disorder Disease Recurre nce 10-21 00:00: 00 [facility] General counseling and advice for contracept jamison management General counseling and advice for contracept jamison management Disease Recurre nce 11-01 00:00: 00 Overview: Formattin g of this note might be different from the original. 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 [facility] Generalize d anxiety disorder Generalize d anxiety disorder Disease Recurre nce 11-01 00:00: 00 [facility] Morbid obesity Morbid obesity Disease Recurre ide 11-01 00:00: 00 [facility] Missed menses Missed menses Disease Resolve d 10-21 00:00: 00 2024-04-30 00:00:00 2024-04-30 14:56:34 [facility] Cellulitis of submental space Cellulitis of submental space Disease Resolve d 08-25 00:00: 00 2024-04-28 00:00:00 2024-04-28 17:01:18 [facility] Multiparit y Multiparit y Disease Resolve d 10-21 00:00: 00 2013-10-21 00:00:00 2013-10-21 21:54:10 [facility] Anemia Anemia Disease Resolve d 11-01 00:00: 00 2013-10-21 00:00:00 2021-08-21 00:26:[address] [facility] Immune to rubella Immune to rubella Disease Resolve d 07-16 00:00: 00 2013-10-21 00:00:00 2013-10-21 21:52:43 Univers y [facility] Immune to varicella Immune to varicella Disease Resolve d 07-04 00:00: 00 2013-10-21 00:00:00 2013-10-21 21:52:45 [facility] Headache Headache Disease Resolve d 06-06 00:00: 00 2013-10-21 00:00:00 2021-08-21 00:24:19 [facility] Routine follow-up Routine follow-up Disease Resolve d 10-04 00:00: 00 2012-11-01 00:00:00 2012-11-01 14:53:[address] [facility] delivery delivered delivery delivered Disease Resolve d 09-17 00:00: 00 2012-11-01 00:00:00 2021-08-21 00:25:57 [facility] Gestationa l hypertensi on Gestationa l hypertensi on Disease Resolve d 09-13 00:00: 00 2012-11-01 00:00:00 2012-11-01 14:53:[address] [facility] Abdominal pain complicati ng Abdominal pain complicati ng Disease Resolve d 09-13 00:00: 00 2012-10-04 00:00:00 2012-10-04 13:52:[address] [facility] Antepartum genitourin stephen tract infection Antepartum genitourin stephen tract infection Disease Resolve d 08-26 00:00: 00 2012-10-04 00:00:00 2021-08-21 00:25:36 [facility] Vaginal discharge in Vaginal discharge in Disease Resolve d 08-26 00:00: 00 2012-10-04 00:00:00 2012-10-04 09:09:57 [facility] Carpal tunnel syndrome Carpal tunnel syndrome Disease Resolve d 07-22 00:00: 00 2012-10-04 00:00:00 2012-10-04 13:52:51 [facility] Abnormal maternal glucose tolerance, antepartum Abnormal maternal glucose tolerance, antepartum Disease Resolve d 07-17 00:00: 00 2012-10-04 00:00:00 2012-10-04 13:52:53 [facility] Supervisio n of other normal Supervisio n of other normal Disease Resolve d 07-16 00:00: 00 2012-10-04 00:00:00 2021-08-21 00:25:00 [facility] Abdominal trauma Abdominal trauma Disease Resolve d 07-16 00:00: 00 2012-10-04 00:00:00 2012-10-04 13:52:36 [facility] Rubella immune Rubella immune Disease Resolve d 07-04 00:00: 00 2012-10-04 00:00:00 2012-10-04 13:52:42 [facility] Nausea Nausea Disease Resolve d 07-04 00:00: 00 2012-10-04 00:00:00 2012-10-04 13:52:38 [facility] Pain in joint, lower leg Pain in joint, lower leg Disease Resolve d 08-29 00:00: 00 2012-10-04 00:00:00 2012-10-04 13:52:45 [facility] UTI (urinary tract infection) UTI (urinary tract infection) Disease Resolve d 06-06 00:00: 00 2012-07-04 00:00:00 2012-07-04 09:51:20 [facility] Epigastric pain Epigastric pain Disease Resolve d 10-31 00:00: 00 2012-07-04 00:00:00 2012-07-04 09:51:12 [facility] Allergies, Adverse Reactions, Alerts Allergy Name Allergy Type Status Severity Reaction(s) Onset Date Inactive Date Treating Clinician Comments Source ATORVAST ATIN DRUG INGREDI Active Hives 24 00:00: 00 [facility] Atorvast atin Drug Allergy Active Hives 04-28 00:00: 00 [facility] MORPHINE DRUG INGREDI Active Low Anxiety 08-24 00:00: 00 [facility] Morphine Propensi ty to adverse reaction s Active Nausea and/or Vomiting 08-24 00:00: 00 [facility] Social History Social Habit Start Date Stop Date Quantity Comments Source [facility] Alcoholic beverage intake 2024-04-30 00:00:00 2024-04-30 00:00:00 Current drinker of alcohol (finding) [facility] History of Social function 2024-04-28 00:00:00 2024-04-28 00:00:00 [facility] Alcohol Comment 2024-04-28 00:00:00 2024-04-28 00:00:00 socially [facility] Cigarettes smoked current (pack per day) - Reported 2024-04-28 00:00:00 2024-04-28 00:00:00 [facility] Cigarette pack-years 2024-04-28 00:00:00 2024-04-28 00:00:00 [facility] Tobacco use and exposure 2024-04-28 00:00:00 2024-04-28 00:00:00 Smokeless tobacco non-user [facility] Tobacco Comment 2024-04-28 00:00:00 2024-04-28 00:00:00 quit last week [facility] Alcohol intake 2023-01-11 00:00:00 2023-01-11 00:00:00 .24 /d [facility] Exposure to SARS-CoV-2 (event) 2021-04-03 00:00:00 2021-05-03 09:51:00 Not sure [facility] Education 2020-08-24 00:00:00 2020-08-24 00:00:00 21 [facility] History of tobacco use 2012-02-02 00:00:00 2012-02-02 00:00:00 Cigarette Smoker [facility] Sex assigned at 1990 00:00:00 1990 00:00:00 [facility] Smoking Status Start Date Stop Date Source Ex-smoker 2024-04-28 00:00:00 2024-04-28 00:00:00 U [facility] Smokes tobacco daily 2021-05-03 00:00:00 [facility] Medications Ordered Medication Name Filled Medication Name Start Date Stop Date Current Medication? Ordering Clinician Indication Dosage Frequency Signature (SIG) Comments Components Source acetaminoph en (TYLENOL) tablet 975 mg 2022-02 21:00: 00 01-11 19:56 :00 No 975mg 975 mg, Oral, ONCE NOW, 1 dose, On Glory 01/11/23 at 1500, [facility] ondansetron (ZOFRAN (PF)) injection 4 mg 2022-02 20:00: 00 01-11 19:56 :00 No 4mg 4 mg, Slow IV Push, ONCE, 1 dose, On Glory 01/11/23 at 1400, [facility] iopamidol (ISOVUE 370-500 mL) injection 80 mL 2022-02 20:00: 00 01-11 20:00 :00 No [id number] 80mL 80 mL, Intravenou s, ONCE, 1 dose, On Glory 01/11/23 at 1400, Routine [facility] ketorolac (TORADOL) injection 30 mg 2022-02 19:15: 00 01-11 18:46 :00 No 30mg 30 mg, Slow IV Push, ONCE NOW, 1 dose, On Glory 01/11/23 at 1315, [facility] ampicillin- sulbactam (UNASYN) 3 g in NaCl 0.9% (NS) 100 mL MINI-BAG 2022-02 18:30: 00 01-11 19:52 :00 No 3g 3 g, IV Piggyback, ONCE, 1 dose, On Glory 01/11/23 at 1230, Administer over 30 Minutes, 100 mL
Reas on for Anti-Infec tive: Documented Infection< br>Documen tali Infection Site: HEENT
D uration of Therapy: Other (see Comments) [facility] dexamethaso ne sod phos PF injection 10 mg 2022-02 18:30: 00 01-11 18:47 :00 No 10mg 10 mg, Slow IV Push, ONCE, 1 dose, On Glory 01/11/23 at 1230, 1 mL [facility] diclofenac 75 mg EC tablet 2022-02 00:00: 00 Yes [id number] 75mg Take 1 tablet by mouth in the morning and 1 tablet in the evening. Take with meals. [facility] acetaminoph en (TYLENOL ARTHRITIS PAIN) 650 mg CR tablet 2022-02 00:00: 00 04-30 00:00 :00 No [id number] 650mg Take 1 tablet by mouth every 8 (eight) hours as needed for Pain. [facility] ondansetron 4 mg disintegrat ing tablet 2022-02 00:00: 00 04-28 00:00 :00 No [id number] 4mg Take 1 tablet by mouth every 8 (eight) hours as needed for Nausea and Vomiting (N/V). [facility] amoxicillin -clavulanat e 875-125 mg per tablet 2022-02 00:00: 00 01-22 05:59 :00 No [id number] 1{tbl} Take 1 tablet by mouth every 12 (twelve) hours for 10 days. [facility] dicyclomine 20 mg tablet 09-25 00:00: 00 05-03 00:00 :00 No [id number] 20mg Take 1 tablet by mouth every 6 (six) hours as needed for Abdominal pain. [facility] ondansetron (ZOFRAN) 4 mg tablet 09-25 00:00: 00 05-03 00:00 :00 No [id number] 4mg Take 1 tablet by mouth every 8 (eight) hours as needed for Nausea and Vomiting (N/V). [facility] omeprazole 20 mg capsule 08-27 00:00: 05-03 00:00 :00 No [id number] 20mg Take 1 capsule by mouth daily. [facility] sulfamethox azole-trime thoprim 800-160 mg per tablet 08-26 00:00: 00 05-03 00:00 :00 No [id number] 1{tbl} Take 1 tablet by mouth 2 (two) times daily. [facility] HYDROcodone -acetaminop hen 5-325 mg tablet 08-26 00:00: 00 05-03 00:00 :00 No [id number] 1{tbl} Take 1 tablet by mouth every 6 (six) hours as needed for Pain (scale 4-6) or Pain (scale 7-10). Indication s: acute pain [facility] Immunizations Ordered Immunization Name Filled Immunization Name Date Status Comments Source TDAP 2012-09-25 00:00:00 Completed [facility] TDAP 2012-09-25 00:00:00 Completed [facility] Meningococcal Vaccine 2011-01-25 00:00:00 Completed [facility] Meningococcal Vaccine 2011-01-25 00:00:00 Completed [facility] Rubella 2010-04-01 00:00:00 Completed [facility] Rubella 2010-04-01 00:00:00 Completed [facility] Td 2006-02-05 00:00:00 Completed [facility] TD, NOS 2006-02-05 00:00:00 Completed Varicella (varivax)(chicken pox) 1996-02-06 00:00:00 Completed [facility] Varicella (varivax)(chicken pox) 1996-02-06 00:00:00 Completed Meningococcal Vaccine Unknown Completed [facility] Rubella Unknown Completed [facility] TD, NOS Unknown Completed [facility] Varicella (varivax)(chicken pox) Unknown Completed [facility] TDAP Unknown Completed [facility] Vital Signs Vital Name Observation Time Observation Value Comments S ource Systolic blood pressure 2024-04-28 20:04:00 123 mm[Hg] [facility] Diastolic blood pressure 2024-04-28 20:04:00 67 mm[Hg] [facility] Heart rate 2024-04-28 20:04:00 76 /min [facility] Body temperature 2024-04-28 20:04:00 36.56 Ann-Marie [facility] Respiratory rate 2024-04-28 20:04:00 18 /min [facility] Body height 2024-04-28 20:04:00 157.5 cm [facility] Body weight 2024-04-28 20:04:00 115.44 kg [facility] BMI 2024-04-28 20:04:00 46.55 kg/m2 [facility] Systolic blood pressure 2023-01-11 20:00:00 144 mm[Hg] [facility] Diastolic blood pressure 2023-01-11 20:00:00 100 mm[Hg] [facility] Heart rate 2023-01-11 20:00:00 74 /min [facility] Respiratory rate 2023-01-11 20:00:00 16 /min [facility] Oxygen saturation in Arterial blood by Pulse oximetry 2023-01-11 20:00:00 97 /min [facility] Body temperature 2023-01-11 18:04:00 37.11 Ann-Marie [facility] Body height 2023-01-11 18:04:[address] [facility] Body weight 2023-01-11 18:04:[address] [facility] BMI 2023-01-11 18:04:00 47.55 kg/m2 [facility] Systolic blood pressure 2021-05-03 14:52:00 144 mm[Hg] [facility] Diastolic blood pressure 2021-05-03 14:52:00 98 mm[Hg] [facility] Heart rate 2021-05-03 14:52:00 75 /min [facility] Body temperature 2021-05-03 14:51:00 36.22 Ann-Marie [facility] Respiratory rate 2021-05-03 14:51:00 20 /min [facility] Body height 2021-05-03 14:51:[address] [facility] Body weight 2021-05-03 14:51:[address] [facility] BMI 2021-05-03 14:51:00 46.93 kg/m2 [facility] Systolic blood pressure 2021-05-03 14:52:00 144 mm[Hg] [facility] Diastolic blood pressure 2021-05-03 14:52:00 98 mm[Hg] [facility] Heart rate 2021-05-03 14:52:00 75 /min [facility] Body temperature 2021-05-03 14:51:00 36.22 Ann-Marie [facility] Respiratory rate 2021-05-03 14:51:00 20 /min [facility] Body height 2021-05-03 14:51:[address] [facility] Body weight 2021-05-03 14:51:[address] [facility] BMI 2021-05-03 14:51:00 46.93 kg/m2 [facility] Procedures Procedure Date / Time Performed Performing Clinicia n Source GALV ONLY - VAGINAL PATHOGENS BY NUCLEIC ACID TESTING 2024-04-28 21:50:00 Gary Taveras [facility] HIGH RISK HPV-THIN PREP 2024-04-28 21:50:00 Nitin Gary [facility] PAP SMEAR-LIQUID BASED-CP 2024-04-28 21:50:00 Nitin [facility] CT SOFT TISSUE NECK W CONTRAST 2023-01-11 19:00:00 Sherley Diez [facility] COMP. METABOLIC PANEL ([id number]) 2023-01-11 18:45:00 Sherley Diez [facility] CBC WITH DIFF 2023-01-11 18:45:00 Sherley Diez [facility] POCT TEST 2023-01-11 18:39:00 Sravan Diez [facility] CONSENT/REFUSAL FOR DIAGNOSIS AND TREATMENT 2023-01-11 18:00:13 Doctor Unassigned, [place] [facility] LAB ONLY PAP SMEAR-LIQUID BASED 2021-05-03 16:08:00 Jacquie Noriega [facility] PAP SMEAR-LIQUID BASED-CP 2021-05-03 16:08:00 Jacquie Noriega [facility] Encounters Start Date/Time End Date/Time Encounter Type Admission Type Attending Clinicians Care Facility Care Department Encounter ID Source 2020-12-06 17:05:57 Emergency [facility] [id number] [facility] 2024-04-28 00:00:00 2024-04-28 17:00:20 Letter (Out) Saulo Taveras [facility] INDUSTRIAL RELATIONS [facility] CHILD [facility] 1..114 350.1.13.10 4.2.7.2.686 [id number] [facility] 2024-04-28 15:00:00 2024-04-28 16:56:47 Outpatient R GARY TAVERAS [facility] [id number] [facility] 2024-04-28 15:00:00 2024-04-28 16:56:47 Office Visit Gary Taveras [facility] INDUSTRIAL RELATIONS [facility] & CHILD [facility] 1..114 350.1.13.10 4.2.7.2.686 [id number] [facility] 2024-02-15 00:00:00 2024-03-22 18:21:46 Patient Secure Msg Doctor Unassigned, [place] Doctor Unassigned, [place] [facility] 1.114 350.1.13.10 4.2.7.2.686 [id number] [facility] 2024-03-06 15:00:00 2024-03-06 15:00:00 Outpatient R RAMAN MAN DIVYA [facility] [id number] [facility] 2024-02-29 00:00:00 2024-02-29 16:42:58 Telephone Raman Man [facility] 1..114 350.1.13.10 4.2.7.2.686 [id number] [facility] 2024-02-28 00:00:00 2024-02-28 17:24:06 Telephone Raman [facility] 1.2.840.114 350.1.13.10 4.2.7.2.686 [id number] [facility] 2024-02-21 00:00:00 2024-02-21 17:23:53 Telephone Raman [facility] 1.2.840.114 350.1.13.10 4.2.7.2.686 [id number] [facility] 2023-01-11 12:05:00 2023-01-11 14:34:00 Emergency X SHERLEY DIEZ [facility] ERT [id number] [facility] 2023-01-11 12:05:00 2023-01-11 14:34:00 Emergency Sherley Diez [facility] 1.2.840.114 350.1.13.10 4.2.7.2.686 [id number] [facility] 2023-01-01 09:15:00 2023-01-01 09:15:00 Outpatient JACQUIE WU [facility] [id number] [facility] 2022-12-02 00:00:00 2022-12-02 00:00:00 Outpatient GC_GCBZW_Ka janela_S [facility] [id number] [facility] 2021-12-03 12:38:34 2021-12-03 12:38:34 Outpatient [facility] [id number] [place] [place] 2021-07-05 13:00:00 2021-07-05 13:00:00 Outpatient JOSÉ PURVIS [facility] [id number] [facility] 2021-06-03 13:30:00 2021-06-03 13:30:00 Outpatient R JOSÉ HAQUE [facility] [id number] [facility] 2021-05-23 00:00:00 2021-05-23 00:00:00 Orders Only Doctor Unassigned, [place] [facility] 1.84.114 350.1.13.10 4.2.7.2.686 [id number] [facility] 2021-05-19 00:00:00 2021-05-19 00:00:00 Telephone Jacquie Noriega [facility] INDUSTRIAL RELATIONS [facility]ILD [facility] 1..114 350.1.13.10 4.2.7.2.686 [id number] [facility] 2021-05-03 09:30:00 2021-05-03 10:51:04 Outpatient R JACQUIE NORIEGA [facility] [id number] [facility] 2021-05-03 09:30:00 2021-05-03 10:51:04 Office Visit Jacquie Noriega [facility] INDUSTRIAL RELATIONS [facility] CHILD [facility] 1.84.114 350.1.13.10 4.2.7.2.686 [id number] [facility] 2021-05-03 09:30:00 2021-05-03 10:51:04 Outpatient R JACQUIE NORIEGA [facility] [id number] [facility] 2021-05-03 09:30:00 2021-05-03 10:51:04 Outpatient R JACQUIE NORIEGA [facility] [id number] [facility] 2021-05-03 09:30:00 2021-05-03 10:51:04 Office Visit Jacquie Noriega [facility] INDUSTRIAL RELATIONS [facility] CHILD [facility] 1.84.114 350.1.13.10 4.2.7.2.686 [id number] [facility] 2021-05-03 00:00:00 2021-05-03 00:00:00 Orders Only Doctor Unassigned, [place] [facility] 1.2.840.114 350.1.13.10 4.2.7.2.686 [id number] [facility] 2021-05-03 00:00:00 2021-05-03 00:00:00 Telephone Jacquie Noriega [facility]USTRIAL REL[facility]ILD [facility] 1.2.840.114 350.1.13.10 4.2.7.2.686 [id number] [facility] 2021-05-03 00:00:00 2021-05-03 00:00:00 Telephone Jacquie Noriega [facility]USTRIAL RELATIONS [facility] 1.2.840.114 350.1.13.10 4.2.7.2.686 [id number] [facility] 2020-09-24 23:09:00 2020-09-25 04:02:00 Emergency [facility] 1.2.840.114 350.1.13.10 4.2.7.2.686 [id number] [facility] 2020-09-24 23:09:00 2020-09-25 04:02:00 Emergency [facility] 1.2.840.114 350.1.13.10 4.2.7.2.686 [id number] 2020-09-02 15:30:00 2020-09-02 23:59:00 Hospital Encounter Radiology [facility] 1.2.840.114 350.1.13.10 4.2.7.2.686 [id number] [facility] 2020-09-02 15:30:00 2020-09-02 23:59:00 Hospital Encounter Radiology [facility] 1.2.840.114 350.1.13.10 4.2.7.2.686 [id number] 2020-09-02 00:00:00 2020-09-02 00:00:00 Outpatient R RADIOLOGY [facility] [id number] [facility] 2020-08-27 21:50:00 2020-08-27 23:10:00 Emergency Geraldine Galvan [facility] 1.2.840.114 350.1.13.10 4.2.7.2.686 [id number] [facility] 2020-08-27 21:50:00 2020-08-27 23:10:00 Emergency Geraldine Galvan [facility] 1.2.840.114 350.1.13.10 4.2.7.2.686 [id number] 2020-08-27 21:50:00 2020-08-27 21:50:00 Emergency X GERALDINE GALVAN [facility] ERT [id number] [facility] 2020-08-27 00:00:00 2020-08-27 00:00:00 Transition of Care Prisca Dinh 1.2.840.114 350.1.13.10 4.2.7.2.686 [id number] [facility] 2020-08-27 00:00:00 2020-08-27 00:00:00 Transition of Care Prisca Dinh 1.2.840.114 350.1.13.10 4.2.7.2.686 [id number] 2020-08-24 14:12:00 2020-08-26 13:37:00 Hospital Encounter Chavo Jose Jelani [facility] 1.2.840.114 350.1.13.10 4.2.7.2.686 [id number] 2020-08-24 14:12:00 2020-08-26 13:37:00 Hospital Encounter Chavo Jose Jelani [facility] 1.2.840.114 350.1.13.10 4.2.7.2.686 [id number] [facility] 2020-08-24 13:52:00 2020-08-24 13:52:[address] [facility] ERT [id number] [facility] 2020-08-24 00:00:00 2020-08-24 00:00:00 Orders Only Doctor Unassigned, [place] [facility] [id number] 2020-08-24 00:00:00 2020-08-24 00:00:00 Orders Only Doctor Unassigned, [place] [facility] [id number] [facility] Results Test Description Test Time Test Comments Results Result Co mments Source [facility] WITH [id number] 19:29:18* Test Item Value Reference Range Interpretation Comme nts WBC (test code = 6690-2) 7.78 See_Comment [Automated Vital Systemsa NOTIK] The system which generated this result transmitted reference range: 4.30 - 11.10 10*3/?L. The reference range was not used to interpret this result as normal/abnormal. RBC (test code = 789-8) 4.53 See_Comment [Automated Vital Systemsa ge] The system which generated this result [...] 33.2 g/dL 31.6-35.1 RDW-SD (test code = 03677-4) 38.3 fL 39.0-49.9 L RDW-CV (test code = 788-0) 12.6 % 12.0-15.5 PLT (test code = 777-3) 345 See_Comment [Automated messa ge] The system which generated this result transmitted reference range: 166 - 358 10*3/?L. The reference range was not used to interpret this result as normal/abnormal. MPV (test code = 09954-2) 8.6 fL 9.5-12.9 L NRBC/100 WBC (test code = 4849423259) 0.0 See_Comment [Automated My eStore App ssage] The system which generated this result transmitted reference range: 0.0 - 10.0 /100 WBCs. The reference range was not used to interpret this result as normal/abnormal. NRBC x10^3 (test code = 4389051852) See_Comment [Automated messa ge] The system which generated this result transmitted reference range: 10*3/?L. The reference range was not used to interpret this result as normal/abnormal. GRAN MAT (NEUT) % (test code = 770-8) 70.2 % IMM GRAN % (test code = 7650383604) 0.40 % LYMPH % (test code = 736-9) 21.9 % MONO % (test code = 5905-5) 4.4 % EOS % (test code = 713-8) 2.6 % BASO % (test code = 706-2) 0.5 % GRAN MAT x10^3(ANC) (test code = 2470186198) 5.47 10*3/uL 1.88-7.09 IMM GRAN x10^3 (test code = 5605282571) 0.03 10*3/uL 0.00-0.06 LYMPH x10^3 (test code = 731-0) 1.70 10*3/uL 1.32-3.29 MONO x10^3 (test code = 742-7) 0.34 10*3/uL 0.33-0.92 EOS x10^3 (test code = 711-2) 0.20 10*3/uL 0.03-0.39 BASO x10^3 (test code = 704-7) 0.04 10*3/uL 0.01-0.07 Lab Interpretation (test code = 14491-2) [id number]* Test Item Value Reference Range Interpretation Comme nts POCT PREG (test code = 1605) Negative On board controls acceptable with C Line (test code = 3574) Yes POCT PREG LOT # (test code = 3575) [id number] POCT PREG TEST DATE ( test code = 3576) 04/15/2024 Lab Interpretation (test cod e = 21462-0) Normal [facility] Notes Date/Time Note Provider Source 2024-02-29 16:35:08 Pt identified by name and . Pt reschedule appt due to new job. Pt scheduled for lab appointment. Pt confirmed date & time. AT [place] RN [facility] 2024-02-28 17:22:28 Chart reviewed. Labs ordered for upcoming Nephrology appointment per guidelines. MyChart message and/or letter sent to patient as an appointment reminder. AT [place] [facility] 2024-02-21 17:21:37 Chart reviewed. Labs ordered for upcoming Nephrology appointment per guidelines. MyChart message and/or letter sent to patient as an appointment reminder. 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
--- NOTE | 2024-05-17 02:29 | RAD REPORT ---
EXAM DESCRIPTION: Transvaginal Study Probe CLINICAL HISTORY: 33 years Female, Pelvic Pain COMPARISON: None. TECHNIQUE: Complete pelvic ultrasound obtained with transvaginal imaging. FINDINGS: Uterus: Uterus measures 9.7 x 4.4 x 5.3 cm. Trace free fluid in the cervix. Endometrium: Endometrial thickness of 1.3 cm. Right ovary: Not visualized due to overlying structures. Left ovary: The left ovary measures 3.8 x 2.9 x 4.0 cm. 2.0 cm left ovarian cyst. No follow-up imagin g for the structure. Adnexa: No additional adnexal findings. Free fluid: No free fluid. Duplex imaging: Color and spectral Doppler imaging demonstrates blood flow in the right ovary. IMPRESSION: 1. Trace free fluid in the cervix. This may be physiologic. 2. The right ovary is not visualized due to overlying structures. Electronically signed by: Casey Azevedo DO 05/17/2024 02:25 AM CDT 4ZDM Due to temporary technical issues with the PACS[employer] reporting system, reports are being sign ed by the in-house radiologist without review as a courtesy to ensure prompt reporting the interpreting rad iologist is fully responsible for the content of the report. Transcribed Date/Time: 05/17/2024 2:28 AM
[2024-05-17 03:14] LABS: Absolute Basophils 0.1 K/uL (0-0.5); Absolute Eosinophils 0.1 K/uL (0-0.5); Absolute Lymphocytes (CBC) 2.7 K/uL (0.7-4.9); Absolute Monocytes 0.4 K/uL (0.1-1.3); Absolute Neutrophil 4.2 K/uL (1.8-8.0); Basophils % 0.9 % (0-1.3); Eosinophils % 1.8 % (0-4.4); Hematocrit 38.3 % (36.0-45.0); Hemoglobin 13.1 g/dL (12.0-15.0); Lymphocytes % 36.3 % (15.3-44.8); MCH 28.1 pg (27.0-35.0); MCHC 34.3 g/dL (32.0-36.0); MCV 81.8 fL (80-100); MPV 6.9 fL (7.6-11.3); Monocytes % 5.3 % (3.3-12.3); Neutrophils % 55.7 % (41.7-73.7); Nucleated Red Blood Cells % 0.1 % (0-0); Platelets 351 thou/uL (152-406); RBC Red Blood Cell Count 4.68 M/uL (3.86-4.86); Red Cell Distribution Width 13.5 % (12.1-15.2)
[2024-05-17 03:17] LABS: Specific Gravity 1.021 (1.005-1.030); Urine Bacteria <20 /HPF (<20); Urine Bilirubin NEGATIVE (Negative); Urine Blood Negative (Negative); Urine Clarity Extremely Turbid (Clear); Urine Color Yellow (Yellow); Urine Culture Reflex Order NOT NEEDED; Urine Glucose NEGATIVE (Negative); Urine Ketones NEGATIVE (Negative); Urine Microscopic Reflex YN ORDER UMIC; Urine Mucus 1+ /HPF (None Seen); Urine Nitrite NEGATIVE (Negative); Urine Protein TRACE (Negative); Urine RBC None Seen /HPF (None Seen); Urine Urobilinogen 2+ (Normal); Urine WBC <5 /HPF (<5)
[2024-05-17 03:25] LABS: ALT/SGPT 22 U/L (13-56); Albumin 3.7 g/dL (3.4-5.0); Albumin/Globulin Ratio 1.2 (1.1-1.8); Alkaline Phosphatase 72 U/L (45-117); Anion Gap 7.5 mEq/L (5.0-15.0); BUN Blood Urea Nitrogen 10 mg/dL (7-18); Bicarbonate 29 mEq/L (21-32); Bilirubin Total 0.8 mg/dL (0.2-1.0); Globulin 3.2 g/dL (2.3-3.5); Glomerular Filtration Rate 99 ml/min (=/>90); Glucose Level 114 mg/dL (74-106); Potassium 3.5 mEq/L (3.5-5.1); Protein, Total 6.9 g/dL (6.4-8.2); Sodium Level 140 mEq/L (136-145)
[2024-05-17 03:45] LABS: AST/SGOT < 10 U/L (15-37)
[2024-05-17] MEDS ORDERED: ONDANSETRON 4 MG/2 ML VIAL ONE (03:53)
[2024-05-17] MEDS ORDERED: HYDROMORPHONE HCL 1 MG/ML INJ ONE (03:53)
--- NOTE | 2024-05-17 03:54 | ER ---
Nurse's Notes [facility] Name: Omayra Parra Age: 33 yrs Sex: Female : 1990 Arrival Date: 05/16/2024 Time: 21:45 Bed 14 Private MD: Diagnosis: Pelvic pain, abdominal pain Presentation: 05/16 23:17 Chief complaint: Patient states: left sided pelvic pain X1 week. Coronavirus screen: lg3 Client denies travel out of the [place] in the last 14 days. At this time, the client does not indicate any symptoms associated with coronavirus-19. Ebola Screen: No symptoms or risks identified at this time. Initial Sepsis Screen: Does the patient meet any 2 criteria? No. Patient's initial sepsis screen is negative. Does the patient have a suspected source of infection? No. Patient's initial sepsis screen is negative. Risk Assessment: Do you want to hurt yourself or someone else? Patient reports no desire to harm self or others. Onset of symptoms is unknown. 23:17 Method Of Arrival: Ambulatory lg3 23:17 Acuity: GAYE 3 lg3 Triage Assessment: 23:21 General: Appears in no apparent distress. comfortable, Behavior is calm, cooperative. lg3 Pain: Complains of pain in pelvis. EENT: No deficits noted. No signs and/or symptoms were reported regarding the EENT system. Neuro: No deficits noted. Peterson Agitation-Sedation Scale (RASS): 0 - Alert and Calm Level of Consciousness is awake, alert, obeys commands, Oriented to person, place, time, situation. Cardiovascular: No deficits noted. Denies chest pain, shortness of breath, Capillary refill < 3 seconds Clubbing of nail beds is absent JVD is absent Patient's skin is warm and dry. Respiratory: No deficits noted. Airway is patent Respiratory effort is even, unlabored, Respiratory pattern is regular, symmetrical. GI: Abdomen is round non-distended, obese, Reports lower abdominal pain. : No signs and/or symptoms were reported regarding the genitourinary system. Derm: No deficits noted. No signs and/or symptoms reported regarding the dermatologic system. Skin is intact, is healthy with good turgor, Skin is dry, Skin is normal, Skin temperature is warm. Musculoskeletal: No deficits noted. No signs and/or symptoms reported regarding the musculoskeletal system. Circulation, motion, and sensation intact. Range of motion: intact in all extremities. 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 - Infectious Disease History:: Denies. - Social history:: Smoking status: Patient denies any tobacco usage or history of. Patient uses alcohol, occasionally. Patient/guardian denies using street drugs. Screenin:23 [facility] ED Fall Risk Assessment (Adult) History of falling in the last 3 months, lg3 including since admission No falls in past 3 months (0 pts) Confusion or Disorientation No (0 pts) Intoxicated or Sedated No (0 pts) Impaired Gait No (0 pts) Mobility Assist Device Used No (0 pt) Altered Elimination No (0 pt) Score/Fall Risk Level 0 - 2 = Low Risk Oriented to surroundings, Maintained a safe environment, Educated pt \T\ family on fall prevention, incl call for assistance when getting out of bed, Assessed \T\ reinforced patient's understanding of fall precautions. Abuse screen: Denies threats or abuse. Denies injuries from another. Nutritional screening: No deficits noted. Tuberculosis screening: No symptoms or risk factors identified. Assessment: 23:23 General: see triage assessment. lg3 Vital Signs: 23:17 BP 119 / 84; Pulse 77; Resp 17 S; Temp 97.4(TE); Pulse Ox 100% on R/A; Weight 113.4 kg lg3 (R); Height 5 ft. 2 in. (R); 05/17 03:18 BP 125 / 80; Pulse 57; Resp 18; Pulse Ox 99% ; cp4 04:16 BP 122 / 76; Pulse 58; Resp 18; Pulse Ox 100% ; cp4 05/16 23:17 Body Mass Index 45.73 (113.40 kg, 157.48 cm) lg3 ED Course: 05/16 21:48 Patient arrived in ED. jj6 23:21 Triage completed. lg3 23:21 Arm band placed on right wrist. lg3 23:23 Patient has correct armband on for positive identification. lg3 23:27 Luo, Setul, MD is Attending Physician. sp3 05/17 00:30 Transvaginal Study Probe In Process Unspecified. EDMS 03:05 Dyan Medina is Primary Nurse. cp4 03:05 No provider procedures requiring assistance completed. Initial lab(s) drawn, by nj, cp4 sent to lab. Urine collected: clean catch specimen, tom colored. Inserted saline lock: 20 gauge in right antecubital area, using aseptic technique. Blood collected. Flushed with 10 mL NS. 05:15 Provided Education on: pelvic pain. cp4 05:15 intact, bleeding controlled, No redness/swelling at site. Pressure dressing applied. cp4 Administered Medications: 03:56 Drug: HYDROmorphone IVP 1 mg IVP once Route: IVP; Site: right antecubital; cp4 04:18 Follow up: Response: No adverse reaction; Pain is decreased cp4 03:56 Drug: Ondansetron IVP 4 mg IVP once; over 2 minutes Route: IVP; Site: right antecubital;cp4 04:18 Follow up: Response: No adverse reaction cp4 Medication: 05/16 23:23 VIS not applicable for this client. lg3 Outcome: 05/17 03:53 Discharge ordered by . sp3 05:15 Discharged to home ambulatory, cp4 05:15 Condition: stable 05:15 Discharge instructions given to patient, family, Instructed on discharge instructions, follow up and referral plans. medication usage, Demonstrated understanding of instructions, follow-up care, medications, Prescriptions given X 1, 05:16 Patient left the ED. cp4 Signatures: Dispatcher [employer] [facility] Ilene Taylor, RN RN lg3 Justo Luo MD MD sp3 Yashira Donaldj6 Dyan Medina cp4
--- NOTE | 2024-05-17 03:54 | EDPHYS ---
Physician Documentation [facility] Name: Omayra Parra Age: 33 yrs Sex: Female : 1990 Arrival Date: 05/16/2024 Time: 21:45 Bed 14 Private MD: ED Physician Justo Luo HPI: 05/17 03:49 This 33 yrs old Female presents to ER via Ambulatory with complaints of Pelvic Pain. sp3 03:49 33-year-old female with history of hyperlipidemia, PCOS, anxiety, "detached ovaries in sp3 the past" presents to the ED with chief complaint left lower quadrant abdominal pain. She denies any vaginal bleeding, vaginal discharge, upper abdominal pain, right-sided pain, dysuria, urinary frequency, or any other signs or symptoms on ROS at this time.. 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 - Infectious Disease History:: Denies. - Social history:: Smoking status: Patient denies any tobacco usage or history of. Patient uses alcohol, occasionally. Patient/guardian denies using street drugs. ROS: 05/17 03:50 Constitutional: Negative for fever, chills, and weight loss, Eyes: Negative for injury, sp3 pain, redness, and discharge, ENT: Negative for injury, pain, and discharge, Neck: Negative for injury, pain, and swelling, Cardiovascular: Negative for chest pain, palpitations, and edema, Respiratory: Negative for shortness of breath, cough, wheezing, and pleuritic chest pain, Back: Negative for injury and pain, MS/Extremity: Negative for injury and deformity, Skin: Negative for injury, rash, and discoloration, Neuro: Negative for headache, weakness, numbness, tingling, and seizure, Psych: Negative for depression, anxiety, suicide ideation, homicidal ideation, and hallucinations, Allergy/Immunology: Negative for hives, rash, and allergies, Endocrine: Negative for neck swelling, polydipsia, polyuria, polyphagia, and marked weight changes, Hematologic/Lymphatic: Negative for swollen nodes, abnormal bleeding, and unusual bruising, All other systems are negative, Exam: 03:50 Constitutional: This is a well developed, well nourished patient who is awake, alert, sp3 and in no acute distress. Head/Face: Normocephalic, atraumatic. Eyes: Pupils equal round and reactive to light, extra-ocular motions intact. Lids and lashes normal. Conjunctiva and sclera are non-icteric and not injected. Cornea within normal limits. Periorbital areas with no swelling, redness, or edema. Neck: Trachea midline, no thyromegaly or masses palpated, and no cervical lymphadenopathy. Supple, full range of motion without nuchal rigidity, or vertebral point tenderness. No Meningismus. Chest/axilla: Normal chest wall appearance and motion. Nontender with no deformity. No lesions are appreciated. Cardiovascular: Regular rate and rhythm with a normal S1 and S2. No gallops, murmurs, or rubs. Normal PMI, no JVD. No pulse deficits. Respiratory: Lungs have equal breath sounds bilaterally, clear to auscultation and percussion. No rales, rhonchi or wheezes noted. No increased work of breathing, no retractions or nasal flaring. Back: No spinal tenderness. No costovertebral tenderness. Full range of motion. Skin: Warm, dry with normal turgor. Normal color with no rashes, no lesions, and no evidence of cellulitis. MS/ Extremity: Pulses equal, no cyanosis. Neurovascular intact. Full, normal range of motion. Neuro: Awake and alert, GCS 15, oriented to person, place, time, and situation. Cranial nerves II-XII grossly intact. Motor strength 5/5 in all extremities. Sensory grossly intact. Cerebellar exam normal. Normal gait. Psych: Awake, alert, with orientation to person, place and time. Behavior, mood, and affect are within normal limits. 03:50 Abdomen/GI: Mild left lower quadrant abdominal pain to palpation without peritoneal signs, rebound or guarding., Vital Signs: 05/16 23:17 BP 119 / 84; Pulse 77; Resp 17 S; Temp 97.4(TE); Pulse Ox 100% on R/A; Weight 113.4 kg lg3 (R); Height 5 ft. 2 in. (R); 05/17 03:18 BP 125 / 80; Pulse 57; Resp 18; Pulse Ox 99% ; cp4 04:16 BP 122 / 76; Pulse 58; Resp 18; Pulse Ox 100% ; cp4 05/16 23:17 Body Mass Index 45.73 (113.40 kg, 157.48 cm) lg3 MDM: 05/16 23:28 Medical Screening Exam initiated sp3 05/17 03:50 Data reviewed: vital signs, nurses notes, lab test result(s), radiologic studies. ED sp3 course: 33-year-old female with left lower quadrant abdominal pain. Differential diagnosis includes physiologic pain, ovarian pathology, UTI, among others. Workup includes ultrasound transvaginal, labs and UA. Full workup negative. Patient has had issues like this in the past and has had 2 exploratory surgeries. She is already a patient of REGIONAL BUSINESS DEVELOPMENT MANAGER in [place]. We will safely discharge her after 1 dose of pain medication on tramadol and follow-up with her REGIONAL BUSINESS DEVELOPMENT MANAGER for further exploration and/or treatment plan.. 05/16 23:19 Order name: CBC with Diff; Complete Time: 03:16 dr5 05/16 23:19 Order name: CMP; Complete Time: 03:48 dr5 05/16 23:19 Order name: Urinalysis w/ reflexes; Complete Time: 03:48 dr5 05/17 00:30 Order name: Transvaginal Study Probe EDMS Administered Medications: 03:56 Drug: HYDROmorphone IVP 1 mg IVP once Route: IVP; Site: right antecubital; cp4 04:18 Follow up: Response: No adverse reaction; Pain is decreased cp4 03:56 Drug: Ondansetron IVP 4 mg IVP once; over 2 minutes Route: IVP; Site: right antecubital;cp4 04:18 Follow up: Response: No adverse reaction cp4 Disposition Summary: 05/17/24 03:53 Discharge Ordered Notes: Location: Home sp3 Condition: Stable sp3 Diagnosis - Pelvic pain, abdominal pain sp3 Followup: sp3 - With: Private Physician - When: Upon discharge from the Emergency Department - Reason: Recheck today's complaints, Continuance of care Discharge Instructions: - Discharge Summary Sheet sp3 - Pelvic Pain, Female sp3 Forms: - Medication Reconciliation Form sp3 - Antibiotic Education sp3 - Prescription Opioid Use sp3 - Patient Portal Instructions sp3 - Leadership Thank You Letter sp3 Prescriptions: - Tramadol 50 mg Oral Tablet - take 1 tablet ORAL route every 8 hours as needed; 12 tablet; Refills: 0, sp3 Product Selection Permitted Signatures: Dispatcher [employer] EDIlene Sampson RN RN lg3 Justo Luo MD MD sp3 Dyan Medina cp4 Corrections: (The following items were deleted from the chart) 00:30 05/16 23:51 Transvaginal Ob+US.RAD.ELPIDIOZ ordered. EDMS EDMS
[2024-05-17 06:17] VITALS: TEMP 97.4
[2024-05-17 06:19] VITALS: BP 122/76; O2SAT 100
== END 2024-05-17 05:16 | disposition home or self-care (01) ==
LOC: ER 21:45
DX: R10.2 Pelvic and perineal pain (principal); R10.32 Left lower quadrant pain
CPT/HCPCS: 36415; 76830; 80053; 81001; 85025; 96374; 96375; 99284; J1171; J2405

== ENCOUNTER 2024-06-19 09:16 | Emergency (ER) | payer SELFPAY ==
--- OUTSIDE RECORDS SUMMARY | 2024-06-19 09:21 | XMS REPORT | Continuity of Care Document ---
Author Name Unknown Address [address] [place] [address] [facility] Address [address] [place] [address] Care Team Providers Care Yarn Examiner Skeins Name Role Phone CARMELINA HANLEY Primary Care Physician Unavailab RAMAN Bar Attending Clinician Unavailable RAMAN MAN Attending Clinician Unavailable Saulo Taveras MD Attending Clinician [phone] GARY TAVERAS Attending Clinician Unavailable Gary Warner Attending Clinician [phone] Doctor Unassigned, [place] Attending Clinician U Raman Valderrama MD Attending Clinician [phone] SHERLEY DIEZ Attending Clinician Unavailable Sherley Diez MD Attending Clinician [phone] JACQUIE NORIEGA Attending Clinician Unavail able GC_GCBZW_Teresa_S Attending Clinician UnavailJOSÉ Gonsalez Attending Clinician Unavailable Doctor Unassigned, [place] Attending Clinician U Jacquie Johnson Attending Clinician + Geraldine Galvan MD Attending Clinician [phone] Radiology Attending Clinician Unavailable RADIOLOGY Attending Clinician Unavailable GERALDINE GALVAN Attending Clinician Unavailable Prisca Dinh RN Attending Clinician [phone] Chavo Jose MD Attending Clinician [phone] Rojelio De La Rosa MD Attending Clinician [phone] NATI DIEZS Admitting Clinician Unavailable [email or web address]_S Admitting Clinician UnavailRojelio Brush MD Admitting Clinician [phone] Payers Payer Name Policy Type Policy Number Effective Date Expirati on Date Source Problems Condition Name Condition Details Condition Category Status Onset Date Resolution Date Last Treatment Date Treating Clinician Comments Source Elevated blood pressure reading without diagnosis of hypertensi on Elevated blood pressure reading without diagnosis of hypertensi on Disease Active 3-29 00:00: 00 [facility] Failure of outpatient treatment Failure of outpatient treatment Disease Active 08-24 00:00: 00 [facility] History of anxiety History of anxiety Disease Active 10-21 00:00: 00 [facility] Tobacco use disorder Tobacco use disorder Disease Recurre nce 10-21 00:00: 00 [facility] General counseling and advice for contracept jamison management General counseling and advice for contracept jamison management Disease Recurre nce 11-01 00:00: 00 Overview: Formattin g of this note might be different from the original. 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 [facility] Generalize d anxiety disorder Generalize d anxiety disorder Disease Recurre nce 11-01 00:00: 00 [facility] Morbid obesity Morbid obesity Disease Recurre mae 11-01 00:00: 00 [facility] Missed menses Missed menses Disease Resolve d 10-21 00:00: 00 2024-04-30 00:00:00 2024-04-30 14:56:34 [facility] Cellulitis of submental space Cellulitis of submental space Disease Resolve d 08-25 00:00: 00 2024-04-28 00:00:00 2024-04-28 17:01:18 [facility] Multiparit y Multiparit y Disease Resolve d 10-21 00:00: 00 2013-10-21 00:00:00 2013-10-21 21:54:10 [facility] Anemia Anemia Disease Resolve d 11-01 00:00: 00 2013-10-21 00:00:00 2021-08-21 00:26:42 [facility] Immune to rubella Immune to rubella Disease Resolve d 07-16 00:00: 00 2013-10-21 00:00:00 2013-10-21 21:52:43 Univers y [facility] Immune to varicella Immune to varicella Disease Resolve d 07-04 00:00: 00 2013-10-21 00:00:00 2013-10-21 21:52:45 [facility] Headache Headache Disease Resolve d 06-06 00:00: 00 2013-10-21 00:00:00 2021-08-21 00:24:19 [facility] Routine follow-up Routine follow-up Disease Resolve d 10-04 00:00: 00 2012-11-01 00:00:00 2012-11-01 14:53:21 [facility] delivery delivered delivery delivered Disease Resolve d 09-17 00:00: 00 2012-11-01 00:00:00 2021-08-21 00:25:57 [facility] Gestationa l hypertensi on Gestationa l hypertensi on Disease Resolve d 09-13 00:00: 00 2012-11-01 00:00:00 2012-11-01 14:53:17 [facility] Abdominal pain complicati ng Abdominal pain complicati ng Disease Resolve d 09-13 00:00: 00 2012-10-04 00:00:00 2012-10-04 13:52:49 [facility] Antepartum genitourin stephen tract infection Antepartum genitourin stephen tract infection Disease Resolve d 08-26 00:00: 00 2012-10-04 00:00:00 2021-08-21 00:25:36 [facility] Vaginal discharge in Vaginal discharge in Disease Resolve d 08-26 00:00: 00 2012-10-04 00:00:00 2012-10-04 09:09:57 [facility] Carpal tunnel syndrome Carpal tunnel syndrome Disease Resolve d 07-22 00:00: 00 2012-10-04 00:00:00 2012-10-04 13:52:51 [facility] Abnormal maternal glucose tolerance, antepartum Abnormal maternal glucose tolerance, antepartum Disease Resolve d 07-17 00:00: 00 2012-10-04 00:00:00 2012-10-04 13:52:53 [facility] Supervisio n of other normal Supervisio n of other normal Disease Resolve d 07-16 00:00: 00 2012-10-04 00:00:00 2021-08-21 00:25:00 [facility] Abdominal trauma Abdominal trauma Disease Resolve d 07-16 00:00: 00 2012-10-04 00:00:00 2012-10-04 13:52:36 [facility] Rubella immune Rubella immune Disease Resolve d 07-04 00:00: 00 2012-10-04 00:00:00 2012-10-04 13:52:42 [facility] Nausea Nausea Disease Resolve d 07-04 00:00: 00 2012-10-04 00:00:00 2012-10-04 13:52:38 [facility] Pain in joint, lower leg Pain in joint, lower leg Disease Resolve d 08-29 00:00: 00 2012-10-04 00:00:00 2012-10-04 13:52:45 [facility] UTI (urinary tract infection) UTI (urinary tract infection) Disease Resolve d 06-06 00:00: 00 2012-07-04 00:00:00 2012-07-04 09:51:20 [facility] Epigastric pain Epigastric pain Disease Resolve d 10-31 00:00: 00 2012-07-04 00:00:00 2012-07-04 09:51:12 [facility] Allergies, Adverse Reactions, Alerts Allergy Name Allergy Type Status Severity Reaction(s) Onset Date Inactive Date Treating Clinician Comments Source ATORVAST ATIN DRUG INGREDI Active Hives 24 00:00: 00 [facility] Atorvast atin Drug Allergy Active Hives 04-28 00:00: 00 [facility] MORPHINE DRUG INGREDI Active Low Anxiety 08-24 00:00: 00 [facility] Morphine Propensi ty to adverse reaction s Active Nausea and/or Vomiting 08-24 00:00: 00 [facility] Social History Social Habit Start Date Stop Date Quantity Comments Source [facility] Alcoholic beverage intake 2024-04-30 00:00:00 2024-04-30 00:00:00 Current drinker of alcohol (finding) [facility] History of Social function 2024-04-28 00:00:00 2024-04-28 00:00:00 [facility] Alcohol Comment 2024-04-28 00:00:00 2024-04-28 00:00:00 socially [facility] Cigarettes smoked current (pack per day) - Reported 2024-04-28 00:00:00 2024-04-28 00:00:00 [facility] Cigarette pack-years 2024-04-28 00:00:00 2024-04-28 00:00:00 [facility] Tobacco use and exposure 2024-04-28 00:00:00 2024-04-28 00:00:00 Smokeless tobacco non-user [facility] Tobacco Comment 2024-04-28 00:00:00 2024-04-28 00:00:00 quit last week [facility] Alcohol intake 2023-01-11 00:00:00 2023-01-11 00:00:00 .24 /d [facility] Exposure to SARS-CoV-2 (event) 2021-04-03 00:00:00 2021-05-03 09:51:00 Not sure [facility] Education 2020-08-24 00:00:00 2020-08-24 00:00:00 21 [facility] History of tobacco use 2012-02-02 00:00:00 2012-02-02 00:00:00 Cigarette Smoker [facility] Sex assigned at 1990 00:00:00 1990 00:00:00 [facility] Smoking Status Start Date Stop Date Source Ex-smoker 2024-04-28 00:00:00 2024-04-28 00:00:00 U [facility] Smokes tobacco daily 2021-05-03 00:00:00 [facility] Medications Ordered Medication Name Filled Medication Name Start Date Stop Date Current Medication? Ordering Clinician Indication Dosage Frequency Signature (SIG) Comments Components Source acetaminoph en (TYLENOL) tablet 975 mg 2022-02 21:00: 00 01-11 19:56 :00 No 975mg 975 mg, Oral, ONCE NOW, 1 dose, On Glory 01/11/23 at 1500, [facility] ondansetron (ZOFRAN (PF)) injection 4 mg 2022-02 20:00: 00 01-11 19:56 :00 No 4mg 4 mg, Slow IV Push, ONCE, 1 dose, On Glory 01/11/23 at 1400, [facility] iopamidol (ISOVUE 370-500 mL) injection 80 mL 2022-02 20:00: 00 01-11 20:00 :00 No [id number] 80mL 80 mL, Intravenou s, ONCE, 1 dose, On Glory 01/11/23 at 1400, Routine [facility] ketorolac (TORADOL) injection 30 mg 2022-02 19:15: 00 01-11 18:46 :00 No 30mg 30 mg, Slow IV Push, ONCE NOW, 1 dose, On Glory 01/11/23 at 1315, [facility] ampicillin- sulbactam (UNASYN) 3 g in NaCl 0.9% (NS) 100 mL MINI-BAG 2022-02 18:30: 00 01-11 19:52 :00 No 3g 3 g, IV Piggyback, ONCE, 1 dose, On Glory 01/11/23 at 1230, Administer over 30 Minutes, 100 mL
Reas on for Anti-Infec tive: Documented Infection< br>Documen tali Infection Site: HEENT
D uration of Therapy: Other (see Comments) [facility] dexamethaso ne sod phos PF injection 10 mg 2022-02 18:30: 00 01-11 18:47 :00 No 10mg 10 mg, Slow IV Push, ONCE, 1 dose, On Glory 01/11/23 at 1230, 1 mL [facility] diclofenac 75 mg EC tablet 2022-02 00:00: 00 Yes [id number] 75mg Take 1 tablet by mouth in the morning and 1 tablet in the evening. Take with meals. [facility] acetaminoph en (TYLENOL ARTHRITIS PAIN) 650 mg CR tablet 2022-02 00:00: 00 04-30 00:00 :00 No [id number] 650mg Take 1 tablet by mouth every 8 (eight) hours as needed for Pain. [facility] ondansetron 4 mg disintegrat ing tablet 2022-02 00:00: 00 04-28 00:00 :00 No [id number] 4mg Take 1 tablet by mouth every 8 (eight) hours as needed for Nausea and Vomiting (N/V). [facility] amoxicillin -clavulanat e 875-125 mg per tablet 2022-02 00:00: 00 01-22 05:59 :00 No [id number] 1{tbl} Take 1 tablet by mouth every 12 (twelve) hours for 10 days. [facility] dicyclomine 20 mg tablet 09-25 00:00: 00 05-03 00:00 :00 No [id number] 20mg Take 1 tablet by mouth every 6 (six) hours as needed for Abdominal pain. [facility] ondansetron (ZOFRAN) 4 mg tablet 09-25 00:00: 00 05-03 00:00 :00 No [id number] 4mg Take 1 tablet by mouth every 8 (eight) hours as needed for Nausea and Vomiting (N/V). [facility] omeprazole 20 mg capsule 08-27 00:00: 05-03 00:00 :00 No [id number] 20mg Take 1 capsule by mouth daily. [facility] sulfamethox azole-trime thoprim 800-160 mg per tablet 08-26 00:00: 00 05-03 00:00 :00 No [id number] 1{tbl} Take 1 tablet by mouth 2 (two) times daily. [facility] HYDROcodone -acetaminop hen 5-325 mg tablet 08-26 00:00: 00 05-03 00:00 :00 No [id number] 1{tbl} Take 1 tablet by mouth every 6 (six) hours as needed for Pain (scale 4-6) or Pain (scale 7-10). Indication s: acute pain [facility] Immunizations Ordered Immunization Name Filled Immunization Name Date Status Comments Source TDAP 2012-09-25 00:00:00 Completed [facility] TDAP 2012-09-25 00:00:00 Completed [facility] Meningococcal Vaccine 2011-01-25 00:00:00 Completed [facility] Meningococcal Vaccine 2011-01-25 00:00:00 Completed [facility] Rubella 2010-04-01 00:00:00 Completed [facility] Rubella 2010-04-01 00:00:00 Completed [facility] Td 2006-02-05 00:00:00 Completed [facility] TD, NOS 2006-02-05 00:00:00 Completed Varicella (varivax)(chicken pox) 1996-02-06 00:00:00 Completed [facility] Varicella (varivax)(chicken pox) 1996-02-06 00:00:00 Completed Meningococcal Vaccine Unknown Completed [facility] Rubella Unknown Completed [facility] TD, NOS Unknown Completed [facility] Varicella (varivax)(chicken pox) Unknown Completed [facility] TDAP Unknown Completed [facility] Vital Signs Vital Name Observation Time Observation Value Comments S ource Systolic blood pressure 2024-04-28 20:04:00 123 mm[Hg] [facility] Diastolic blood pressure 2024-04-28 20:04:00 67 mm[Hg] [facility] Heart rate 2024-04-28 20:04:00 76 /min [facility] Body temperature 2024-04-28 20:04:00 36.56 Ann-Marie [facility] Respiratory rate 2024-04-28 20:04:00 18 /min [facility] Body height 2024-04-28 20:04:00 157.5 cm [facility] Body weight 2024-04-28 20:04:00 115.44 kg [facility] BMI 2024-04-28 20:04:00 46.55 kg/m2 [facility] Systolic blood pressure 2023-01-11 20:00:00 144 mm[Hg] [facility] Diastolic blood pressure 2023-01-11 20:00:00 100 mm[Hg] [facility] Heart rate 2023-01-11 20:00:00 74 /min [facility] Respiratory rate 2023-01-11 20:00:00 16 /min [facility] Oxygen saturation in Arterial blood by Pulse oximetry 2023-01-11 20:00:00 97 /min [facility] Body temperature 2023-01-11 18:04:00 37.11 Ann-Marie [facility] Body height 2023-01-11 18:04:00 157.5 cm [facility] Body weight 2023-01-11 18:04:00 117.935 kg [facility] BMI 2023-01-11 18:04:00 47.55 kg/m2 [facility] Systolic blood pressure 2021-05-03 14:52:00 144 mm[Hg] [facility] Diastolic blood pressure 2021-05-03 14:52:00 98 mm[Hg] [facility] Heart rate 2021-05-03 14:52:00 75 /min [facility] Body temperature 2021-05-03 14:51:00 36.22 Ann-Marie [facility] Respiratory rate 2021-05-03 14:51:00 20 /min [facility] Body height 2021-05-03 14:51:00 157.5 cm [facility] Body weight 2021-05-03 14:51:00 116.376 kg [facility] BMI 2021-05-03 14:51:00 46.93 kg/m2 [facility] Systolic blood pressure 2021-05-03 14:52:00 144 mm[Hg] [facility] Diastolic blood pressure 2021-05-03 14:52:00 98 mm[Hg] [place] [facility] Heart rate 2021-05-03 14:52:00 75 /min [facility] Body temperature 2021-05-03 14:51:00 36.22 Ann-Marie [facility] Respiratory rate 2021-05-03 14:51:00 20 /min [facility] Body height 2021-05-03 14:51:00 157.5 cm [facility] Body weight 2021-05-03 14:51:00 116.376 kg [facility] BMI 2021-05-03 14:51:00 46.93 kg/m2 [facility] Procedures Procedure Date / Time Performed Performing Clinicia n Source GALV ONLY - VAGINAL PATHOGENS BY NUCLEIC ACID TESTING 2024-04-28 21:50:00 Gary Taveras [facility] HIGH RISK HPV-THIN PREP 2024-04-28 21:50:00 Nitin Gary [facility] PAP SMEAR-LIQUID BASED-CP 2024-04-28 21:50:[address] [facility] SOFT TISSUE NECK W CONTRAST 2023-01-11 19:00:00 Sherley Diez [facility] COMP. METABOLIC PANEL ([id number]) 2023-01-11 18:45:00 Sherley Diez [facility] CBC WITH DIFF 2023-01-11 18:45:00 Sherley Diez [facility] POCT TEST 2023-01-11 18:39:00 Sravan Diez [facility] CONSENT/REFUSAL FOR DIAGNOSIS AND TREATMENT 2023-01-11 18:00:13 Doctor Unassigned, [place] [facility] LAB ONLY PAP SMEAR-LIQUID BASED 2021-05-03 16:08:00 Jacquie Noriega [facility] PAP SMEAR-LIQUID BASED-CP 2021-05-03 16:08:00 Jacquie Noriega [facility] Encounters Start Date/Time End Date/Time Encounter Type Admission Type Attending Clinicians Care Facility Care Department Encounter ID Source 2020-12-06 17:05:57 Emergency [facility] [id number] [facility] 2024-04-28 00:00:00 2024-04-28 17:00:20 Letter (Out) Saulo Taveras [facility] VOIP NETWORK TECHNICIAN [facility] & CHILD [facility] 1..114 350.1.13.10 4.2.7.2.686 [id number] [facility] 2024-04-28 15:00:00 2024-04-28 16:56:47 Outpatient R GARY TAVERAS [facility] [id number] [facility] 2024-04-28 15:00:00 2024-04-28 16:56:47 Office Visit Gary Taveras [facility] VOIP NETWORK TECHNICIAN [facility] & CHILD [facility] 1..114 350.1.13.10 4.2.7.2.686 [id number] [facility] 2024-02-15 00:00:00 2024-03-22 18:21:46 Patient Secure Msg Doctor Unassigned, [place] Doctor Unassigned, [place] [facility] 1.114 350.1.13.10 4.2.7.2.686 [id number] [facility] 2024-03-06 15:00:00 2024-03-06 15:00:00 Outpatient R RAMAN MAN DIVYA [facility] [id number] [facility] 2024-02-29 00:00:00 2024-02-29 16:42:58 Telephone Raman Man [facility] 1..114 350.1.13.10 4.2.7.2.686 [id number] [facility] 2024-02-28 00:00:00 2024-02-28 17:24:06 Telephone Raman Man [facility] 1.2.840.114 350.1.13.10 4.2.7.2.686 [id number] [facility] 2024-02-21 00:00:00 2024-02-21 17:23:53 Telephone Raman Man [facility] ([facility] 1.2.840.114 350.1.13.10 4.2.7.2.686 [id number] [facility] 2023-01-11 12:05:00 2023-01-11 14:34:00 Emergency X SHERLEY DIEZ [facility] ERT [id number] [facility] 2023-01-11 12:05:00 2023-01-11 14:34:00 Emergency Sherley Diez [facility] 1.2.840.114 350.1.13.10 4.2.7.2.686 [id number] [facility] 2023-01-01 09:15:00 2023-01-01 09:15:00 Outpatient JACQUIE WU [facility] [id number] [facility] 2022-12-02 00:00:00 2022-12-02 00:00:00 Outpatient GC_GCBZW_Ka janela_S [facility] [id number] [facility] 2021-12-03 12:38:34 2021-12-03 12:38:34 Outpatient PRASANNA [facility] [id number] [facility] [place] 2021-07-05 13:00:00 2021-07-05 13:00:00 Outpatient JOSÉ PURVIS [facility] [id number] [facility] 2021-06-03 13:30:00 2021-06-03 13:30:00 Outpatient R JOSÉ HAQUE [facility] [id number] [facility] 2021-05-23 00:00:00 2021-05-23 00:00:00 Orders Only Doctor Unassigned, [place] [facility] 1.84.114 350.1.13.10 4.2.7.2.686 [id number] [facility] 2021-05-19 00:00:00 2021-05-19 00:00:00 Telephone Jacquie Noriega [facility] VOIP NETWORK TECHNICIAN [facility] & CHILD [facility] 1..114 350.1.13.10 4.2.7.2.686 [id number] [facility] 2021-05-03 09:30:00 2021-05-03 10:51:04 Outpatient R JACQUIE NORIEGA [facility] [id number] [facility] 2021-05-03 09:30:00 2021-05-03 10:51:04 Office Visit Jacquie Noriega [facility] VOIP NETWORK TECHNICIAN [facility] & CHILD [facility] 1.84.114 350.1.13.10 4.2.7.2.686 [id number] [facility] 2021-05-03 09:30:00 2021-05-03 10:51:04 Outpatient R JACQUIE NORIEGA [facility] [id number] [facility] 2021-05-03 09:30:00 2021-05-03 10:51:04 Outpatient R JACQUIE NORIEGA [facility] [id number] [facility] 2021-05-03 09:30:00 2021-05-03 10:51:04 Office Visit Jacquie Noriega [facility] VOIP NETWORK TECHNICIAN [facility] & CHILD [facility] 1.84.114 350.1.13.10 4.2.7.2.686 [id number] [facility] 2021-05-03 00:00:00 2021-05-03 00:00:00 Orders Only Doctor Unassigned, [place] [facility] 1.2.840.114 350.1.13.10 4.2.7.2.686 [id number] [facility] 2021-05-03 00:00:00 2021-05-03 00:00:00 Telephone Jacquie Noriega [facility] VOIP NETWORK TECHNICIAN [facility] CHILD [facility] 1.2.840.114 350.1.13.10 4.2.7.2.686 [id number] [facility] 2021-05-03 00:00:00 2021-05-03 00:00:00 Telephone Jacquie Noriega [facility] VOIP NETWORK TECHNICIAN [facility] 1.2.840.114 350.1.13.10 4.2.7.2.686 [id number] [facility] 2020-09-24 23:09:00 2020-09-25 04:02:00 Emergency [facility] 1.2.840.114 350.1.13.10 4.2.7.2.686 [id number] [facility] 2020-09-24 23:09:00 2020-09-25 04:02:00 Emergency [facility] 1.2.840.114 350.1.13.10 4.2.7.2.686 [id number] 2020-09-02 15:30:00 2020-09-02 23:59:00 Hospital Encounter Radiology [facility] 1.2.840.114 350.1.13.10 4.2.7.2.686 [id number] [facility] 2020-09-02 15:30:00 2020-09-02 23:59:00 Hospital Encounter Radiology [facility] 1.2.840.114 350.1.13.10 4.2.7.2.686 [id number] 2020-09-02 00:00:00 2020-09-02 00:00:00 Outpatient R RADIOLOGY [facility] [id number] [facility] 2020-08-27 21:50:00 2020-08-27 23:10:00 Emergency Geraldine Galvan [facility] 1.2.840.114 350.1.13.10 4.2.7.2.686 [id number] [facility] 2020-08-27 21:50:00 2020-08-27 23:10:00 Emergency Geraldine Galvan [facility] 1.2.840.114 350.1.13.10 4.2.7.2.686 [id number] 2020-08-27 21:50:00 2020-08-27 21:50:00 Emergency X GERALDINE GALVAN [facility] ERT [id number] [facility] 2020-08-27 00:00:00 2020-08-27 00:00:00 Transition of Care Prisca Dinh 1.2.840.114 350.1.13.10 4.2.7.2.686 [id number] [facility] 2020-08-27 00:00:00 2020-08-27 00:00:00 Transition of Care Prisca Dinh 1.2.840.114 350.1.13.10 4.2.7.2.686 [id number] 2020-08-24 14:12:00 2020-08-26 13:37:00 Hospital Encounter Chavo Jose Jelani [facility] 1.2.840.114 350.1.13.10 4.2.7.2.686 [id number] 2020-08-24 14:12:00 2020-08-26 13:37:00 Hospital Encounter Chavo Jose Jelani [facility] 1.2.840.114 350.1.13.10 4.2.7.2.686 [id number] [facility] 2020-08-24 13:52:00 2020-08-24 13:52:00 Emergency X [facility] ERT [id number] [facility] 2020-08-24 00:00:00 2020-08-24 00:00:00 Orders Only Doctor Unassigned, [place] [facility] 1.2.840.114 350.1.13.10 4.2.7.2.686 [id number] 2020-08-24 00:00:00 2020-08-24 00:00:00 Orders Only Doctor Unassigned, [place] [facility] 1.2.840.114 350.1.13.10 4.2.7.2.686 [id number] [facility] Results Test Description Test Time Test Comments Results Result Co mments Source [facility] WITH [id number] 19:29:18* Test Item Value Reference Range Interpretation Comme nts WBC (test code = 6690-2) 7.78 See_Comment [Automated 3[employer] Ranker] The system which generated this result transmitted reference range: 4.30 - 11.10 10*3/?L. The reference range was not used to interpret this result as normal/abnormal. RBC (test code = 789-8) 4.53 See_Comment [Automated [employer]afa ge] The system which generated this result [...] 33.2 g/dL 31.6-35.1 RDW-SD (test code = 43349-0) 38.3 fL 39.0-49.9 L RDW-CV (test code = 788-0) 12.6 % 12.0-15.5 PLT (test code = 777-3) 345 See_Comment [Automated messa ge] The system which generated this result transmitted reference range: 166 - 358 10*3/?L. The reference range was not used to interpret this result as normal/abnormal. MPV (test code = 64864-9) 8.6 fL 9.5-12.9 L NRBC/100 WBC (test code = 6089634512) 0.0 See_Comment [Automated blogTV ssage] The system which generated this result transmitted reference range: 0.0 - 10.0 /100 WBCs. The reference range was not used to interpret this result as normal/abnormal. NRBC x10^3 (test code = 1439627244) See_Comment [Automated messa ge] The system which generated this result transmitted reference range: 10*3/?L. The reference range was not used to interpret this result as normal/abnormal. GRAN MAT (NEUT) % (test code = 770-8) 70.2 % IMM GRAN % (test code = 6786308605) 0.40 % LYMPH % (test code = 736-9) 21.9 % MONO % (test code = 5905-5) 4.4 % EOS % (test code = 713-8) 2.6 % BASO % (test code = 706-2) 0.5 % GRAN MAT x10^3(ANC) (test code = 2751982672) 5.47 10*3/uL 1.88-7.09 IMM GRAN x10^3 (test code = 6892464885) 0.03 10*3/uL 0.00-0.06 LYMPH x10^3 (test code = 731-0) 1.70 10*3/uL 1.32-3.29 MONO x10^3 (test code = 742-7) 0.34 10*3/uL 0.33-0.92 EOS x10^3 (test code = 711-2) 0.20 10*3/uL 0.03-0.39 BASO x10^3 (test code = 704-7) 0.04 10*3/uL 0.01-0.07 Lab Interpretation (test code = 44337-0) [id number] Test Item Value Reference Range Interpretation Comme nts POCT PREG (test code = 1605) Negative On board controls acceptable with C Line (test code = 3574) Yes POCT PREG LOT # (test code = 3575) [id number] POCT PREG TEST DATE ( test code = 3576) 04/15/2024 Lab Interpretation (test cod e = 94906-3) Normal [facility] Notes Date/Time Note Provider Source 2024-02-29 16:35:08 Pt identified by name and . Pt reschedule appt due to new job. Pt scheduled for lab appointment. Pt confirmed date & time. AT [place] RN [facility] 2024-02-28 17:22:28 Chart reviewed. Labs ordered for upcoming Nephrology appointment per guidelines. MyChart message and/or letter sent to patient as an appointment reminder. AT [place] RN [facility] 2024-02-21 17:21:37 Chart reviewed. Labs ordered for upcoming Nephrology appointment per guidelines. MyChart message and/or letter sent to patient as an appointment reminder. ER LAYER [facility]
[2024-06-19] MEDS ORDERED: CEFTRIAXONE 1000 MG/VIAL ONE (10:18)
[2024-06-19] MEDS ORDERED: WATER FOR INJ,STERILE 10 ML ONE (10:19)
[2024-06-19] MEDS ORDERED: dexAMETHasone 10 MG/ML VIAL ONE (10:19)
--- NOTE | 2024-06-19 11:20 | RAD REPORT ---
EXAM: XR SOFT TISSUE NECK CLINICAL INDICATION: SORE THROAT. COMPARISON: None FINDINGS: Soft Tissues: Included aerodigestive tract is normal. Included Osseous Structures: No acute osseous abnormality Included Lung Apices: Normal IMPRESSION: Unremarkable radiographs of the soft tissues of the neck.
[2024-06-19] MEDS ORDERED: PROMETHAZINE INJ 25 MG/ML AMP IM ONE (12:21)
[2024-06-19 12:49] LABS: Albumin 3.5 g/dL (3.4-5.0); Bilirubin Total 0.8 mg/dL (0.2-1.0); Globulin 3.4 g/dL (2.3-3.5); Protein, Total 6.9 g/dL (6.4-8.2)
[2024-06-19 13:25] LABS: Absolute Eosinophils 0.1 K/uL (0-0.5); Absolute Lymphocytes (CBC) 1.6 K/uL (0.7-4.9); Absolute Monocytes 0.3 K/uL (0.1-1.3); Absolute Neutrophil 8.8 K/uL (1.8-8.0); Basophils % 0.5 % (0-1.3); Eosinophils % 1.1 % (0-4.4); Hematocrit 38.4 % (36.0-45.0); Hemoglobin 13.4 g/dL (12.0-15.0); Lymphocytes % 14.4 % (15.3-44.8); MCH 28.2 pg (27.0-35.0); MCHC 34.8 g/dL (32.0-36.0); MPV 7.4 fL (7.6-11.3); Monocytes % 2.9 % (3.3-12.3); Neutrophils % 81.1 % (41.7-73.7); Platelets 314 thou/uL (152-406); RBC Red Blood Cell Count 4.75 M/uL (3.86-4.86); Red Cell Distribution Width 13.5 % (12.1-15.2)
--- NOTE | 2024-06-19 16:14 | EDPHYS ---
Physician Documentation [facility] Name: Omayra Parra Age: 33 yrs Sex: Female : 1990 Arrival Date: 06/19/2024 Time: 09:16 Bed 7 Private MD: ED Physician Antonio Aguiar HPI: 06/19 16:15 This 33 yrs old Female presents to ER via Ambulatory with complaints of Facial jj9 Swelling, Sore Throat. 10:14 The patient presents with sore throat. 34-year-old female comes to the emergency jj9 department for evaluation of sore throat and difficulty swallowing. She denies fever, chills, nausea or vomiting.. 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 - Infectious Disease History:: Denies. - Social history:: Smoking status: Reported history of juuling and/or vaping. ROS: 10:15 Constitutional: Negative for fever, chills, and weight loss, jj9 10:15 Constitutional: Negative for body aches, chills, fatigue, 10:15 Eyes: Negative for acute changes, blurry vision, discharge, 10:15 ENT: Negative for injury or acute deformity, abrasion, contusion, 10:15 Neck: Positive for swollen nodes, tenderness, 10:15 Cardiovascular: Negative for chest pain, edema, 10:15 Respiratory: Negative for cough, hemoptysis, 10:15 Abdomen/GI: Negative for abdominal pain, 10:15 Back: Negative for decreased range of motion, 10:15 MS/extremity: Negative for acute changes, 10:15 Skin: Negative for abrasions, 10:15 Neuro: Negative for altered mental status, dizziness, 10:15 Psych: Negative for anxiety, 10:15 Allergy/Immunology: Negative for allergies, Exam: 10:16 Constitutional: This is a well developed, well nourished patient who is awake, alert, jj9 and in no acute distress. Head/Face: Normocephalic, atraumatic. Eyes: Pupils equal round and reactive to light, extra-ocular motions intact. Lids and lashes normal. Conjunctiva and sclera are non-icteric and not injected. Cornea within normal limits. Periorbital areas with no swelling, redness, or edema. ENT: Bilateral cervical tenderness with lymphadenopathy decreased view of the oropharynx due to patient's habitus Neck: Trachea midline, no thyromegaly or masses palpated, and no cervical lymphadenopathy. Supple, full range of motion without nuchal rigidity, or vertebral point tenderness. No Meningismus. Chest/axilla: Normal chest wall appearance and motion. Nontender with no deformity. No lesions are appreciated. Cardiovascular: Regular rate and rhythm with a normal S1 and S2. No gallops, murmurs, or rubs. Normal PMI, no JVD. No pulse deficits. Respiratory: Lungs have equal breath sounds bilaterally, clear to auscultation and percussion. No rales, rhonchi or wheezes noted. No increased work of breathing, no retractions or nasal flaring. Abdomen/GI: Soft, non-tender, with normal bowel sounds. No distension or tympany. No guarding or rebound. No evidence of tenderness throughout. Back: No spinal tenderness. No costovertebral tenderness. Full range of motion. Vital Signs: 09:43 BP 155 / 90; Pulse 79; Resp 17; Temp 97.9; Pulse Ox 100% ; Weight 113.4 kg; Height 5 jl7 ft. 2 in. ; Pain 10/10; 12:00 BP 122 / 74; Pulse 70; Resp 16 S; Pulse Ox 99% on R/A; aa5 15:30 BP 127 / 81; Pulse 66; Resp 18 S; Pulse Ox 97% on R/A; aa5 09:43 Body Mass Index 45.73 (113.40 kg, 157.48 cm) jl7 09:43 Pain Scale: Adult jl7 MDM: 09:30 Medical Screening Exam initiated jj9 16:05 Differential diagnosis: Allergic rhinitis, epiglottitis, pierre's angina, peritonsillar jj9 abscess tonsillitis, upper respiratory infection, viral syndrome. ED course: No abnormal findings on CT scan of the neck. The patient will be started on Augmentin advised to continue Tylenol Motrin follow-up with PCP or return to the emergency department worsening of symptoms. She understands and agrees with the plan. . 16:15 Data reviewed: vital signs, nurses notes. 06/19 10:13 Order name: Group A Streptococcus Rapid; Complete Time: 11:44 06/19 11:00 Order name: Throat Culture EDIA 06/19 12:01 Order name: CBC with Diff; Complete Time: 14:41 06/19 12:01 Order name: CMP; Complete Time: 13:10 06/19 10:17 Order name: Neck Soft Tissue XRAY; Complete Time: 11:44 06/19 12:01 Order name: CT Soft Tissue Neck W/contr jj9 Administered Medications: 10:28 Drug: Dexamethasone IM 10 mg IM once Route: IM; Site: right gluteus; aa5 10:45 Follow up: Response: No adverse reaction aa5 10:28 Drug: Rocephin (cefTRIAXone) IM 1 grams IM once Route: IM; Site: left gluteus; aa5 10:45 Follow up: Response: No adverse reaction aa5 12:28 Drug: Promethazine IM 12.5 mg IM once; give IVP not IM {Note: administered IVP to left aa5 AC .} Route: IM; Site: Other; 12:45 Follow up: Response: No adverse reaction aa5 Disposition Summary: 06/19/24 16:13 Discharge Ordered Notes: Location: Home jj9 Problem: new jj9 Symptoms: are resolved jj9 Condition: Stable jj9 Diagnosis - Acute pharyngitis, unspecified jj9 Followup: jj9 - With: Private Physician - When: - Reason: Re-evaluation by your physician Discharge Instructions: - Discharge Summary Sheet jj9 - Sore Throat jj9 Forms: - Medication Reconciliation Form jj9 - Antibiotic Education jj9 - Prescription Opioid Use jj9 - Patient Portal Instructions jj9 - Leadership Thank You Letter jj9 Prescriptions: - Augmentin 875-125 mg Oral Tablet - take 1 tablet ORAL route every 12 hours for 10 days; 20 tablet; Refills: 0, jj9 Product Selection Permitted Signatures: Dispatcher [employer] EDIA Maliha Ramirez, RN RN aa5 Francisco Frank RN RN jl7 Antonio Aguiar MD MD jj9 Corrections: (The following items were deleted from the chart) 10:18 10:18 Neck Soft Tissue+RAD.RAD.BRZ ordered. EDMS EDMS
--- NOTE | 2024-06-19 16:14 | ER ---
Nurse's Notes [facility] Name: Omayra Parra Age: 33 yrs Sex: Female : 1990 Arrival Date: 06/19/2024 Time: 09:16 Bed 7 Private MD: Diagnosis: Acute pharyngitis, unspecified Presentation: 06/19 09:43 Chief complaint: Patient states: Swelling and pain under left side of chin since this jl7 morning. Coronavirus screen: At this time, the client does not indicate any symptoms associated with coronavirus-19. Ebola Screen: No symptoms or risks identified at this time. Initial Sepsis Screen: Does the patient meet any 2 criteria? No. Patient's initial sepsis screen is negative. Does the patient have a suspected source of infection? No. Patient's initial sepsis screen is negative. Risk Assessment: Do you want to hurt yourself or someone else? Patient reports no desire to harm self or others. Onset of symptoms was June 19, 2024. 09:43 Method Of Arrival: Ambulatory jl7 09:43 Acuity: GAYE 3 jl7 Triage Assessment: 09:45 General: Appears in no apparent distress. uncomfortable, Behavior is calm, cooperative. jl7 Pain: Complains of pain in neck Pain currently is 10 out of 10 on a pain scale. EENT: Reports pain. 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 - Infectious Disease History:: Denies. - Social history:: Smoking status: Reported history of juuling and/or vaping. Screenin:00 [facility] ED Fall Risk Assessment (Adult) History of falling in the last 3 months, aa5 including since admission No falls in past 3 months (0 pts) Confusion or Disorientation No (0 pts) Intoxicated or Sedated No (0 pts) Impaired Gait No (0 pts) Mobility Assist Device Used No (0 pt) Altered Elimination No (0 pt) Score/Fall Risk Level 0 - 2 = Low Risk Oriented to surroundings, Maintained a safe environment, Educated pt \T\ family on fall prevention, incl call for assistance when getting out of bed, Assessed \T\ reinforced patient's understanding of fall precautions. Abuse screen: Denies threats or abuse. Nutritional screening: No deficits noted. Tuberculosis screening: No symptoms or risk factors identified. Assessment: 10:00 General: Appears comfortable, Behavior is calm, cooperative. Pain: Complains of pain in aa5 left submandibular area. Neuro: Level of Consciousness is awake, alert, obeys commands, Oriented to person, place, time, situation. Cardiovascular: Patient's skin is warm and dry. Respiratory: Airway is patent Respiratory effort is even, unlabored, Respiratory pattern is regular, symmetrical. GI: No signs and/or symptoms were reported involving the gastrointestinal system. : No signs and/or symptoms were reported regarding the genitourinary system. EENT: Throat sore throat . Derm: Skin is pink, warm \T\ dry. Musculoskeletal: Range of motion: intact in all extremities. 10:45 Reassessment: Patient is alert, oriented x 3, equal unlabored respirations, skin aa5 warm/dry/pink. 12:13 Reassessment: Pt sleeping, easy to awaken to verbal stimuli. . aa5 16:20 Reassessment: Patient is alert, oriented x 3, equal unlabored respirations, skin aa5 warm/dry/pink. Vital Signs: 09:43 BP 155 / 90; Pulse 79; Resp 17; Temp 97.9; Pulse Ox 100% ; Weight 113.4 kg; Height 5 jl7 ft. 2 in. ; Pain 10/10; 12:00 BP 122 / 74; Pulse 70; Resp 16 S; Pulse Ox 99% on R/A; aa5 15:30 BP 127 / 81; Pulse 66; Resp 18 S; Pulse Ox 97% on R/A; aa5 09:43 Body Mass Index 45.73 (113.40 kg, 157.48 cm) jl7 09:43 Pain Scale: Adult jl7 ED Course: 09:21 Patient arrived in ED. im 09:28 Maliha Ramirez RN is Primary Nurse. aa5 09:30 Antonio Aguiar MD is Attending Physician. jj9 09:44 Triage completed. jl7 09:45 Arm band placed on right wrist. jl7 10:00 Patient has correct armband on for positive identification. Bed in low position. Call aa5 light in reach. Side rails up X 1. 10:49 Neck Soft Tissue XRAY In Process Unspecified. EDMS 12:15 Initial lab(s) drawn, by me, sent to lab. Inserted saline lock: 20 gauge in left aa5 antecubital area, using aseptic technique. Blood collected. Flushed with 10 mL NS. 12:29 No provider procedures requiring assistance completed. aa5 13:21 CT Soft Tissue Neck W/contr In Process Unspecified. EDMS 16:18 Primary Nurse role handed off by Maliha Ramirez, RN aa5 16:20 IV discontinued, intact, bleeding controlled, No redness/swelling at site. Pressure aa5 dressing applied. Administered Medications: 10:28 Drug: Dexamethasone IM 10 mg IM once Route: IM; Site: right gluteus; aa5 10:45 Follow up: Response: No adverse reaction aa5 10:28 Drug: Rocephin (cefTRIAXone) IM 1 grams IM once Route: IM; Site: left gluteus; aa5 10:45 Follow up: Response: No adverse reaction aa5 12:28 Drug: Promethazine IM 12.5 mg IM once; give IVP not IM {Note: administered IVP to left aa5 AC .} Route: IM; Site: Other; 12:45 Follow up: Response: No adverse reaction aa5 Medication: 10:56 VIS not applicable for this client. aa5 Outcome: 16:13 Discharge ordered by . jj9 16:20 Discharged to home ambulatory, aa5 16:20 Condition: good 16:20 Discharge instructions given to patient, Instructed on discharge instructions, follow up and referral plans. medication usage, Demonstrated understanding of instructions, follow-up care, medications, Prescriptions given X 1, 16:27 Patient left the ED. jl7 Signatures: Dispatcher [employer] EDMS Maliha Ramirez, RN SUSAN aa5 Francisco Frank RN RN jl7 Aviva Solorzano Julio, MD MD jj9 Corrections: (The following items were deleted from the chart) 16:19 16:16 Patient left the ED. [email or web address] aaBailee
[2024-06-19 16:40] VITALS: BP 155/90; TEMP 97.9; O2SAT 100
--- NOTE | 2024-06-19 20:21 | RAD REPORT ---
EXAM: CT CT NECK WITH IV CONTRAST INDICATION: Swelling TECHNIQUE: Helical CT examination of the neck with IV contrast. Sagittal and coronal reformations wer e generated. This exam was performed according to our departmental dose-optimization program, which includes automated exposure control, adjustment of the mA and/or kV according to patient size and/or use of iterative reconstruction technique. COMPARISON: None. FINDINGS: Mucosal spaces: Nasopharynx, oropharynx, oral cavity, larynx and hypopharynx are normal. No suspiciou s masses. Epiglottis is normal in configuration. True vocal cords cords are normally situated. Piriform sinuses are well-aerated. Lymph Nodes: No pathologic appearing cervical lymph nodes. Salivary Glands: Unremarkable. Thyroid Gland: Normal Included Intracranial Structures: Normal Included Orbits: Normal Paranasal Sinuses: Predominantly clear Tympanomastoid Cavities: Normal Vascular Structures: Normal Osseous Structures: No acute osseous abnormality. Included Lung Apices: Normal IMPRESSION: Normal contrast-enhanced CT of the neck. Electronically signed by: Sebas Moralez MD 06/19/2024 04:01 PM CDT Due to temporary technical issues with the PACS/Glints reporting system, reports are being mikey d by the in-house radiologist without review as a courtesy to ensure prompt reporting the interpreting radiologist is fully responsible for the content of the report. Transcribed Date/Time: 06/19/2024 8:21 PM
== END 2024-06-19 16:27 | disposition home or self-care (01) ==
LOC: ER 09:16
DX: J02.9 Acute pharyngitis, unspecified (principal)
CPT/HCPCS: 36415; 70360; 70491; 80053; 85025; 87070; 96372; 99284; J0696; J1100; J2550; Q9967

== ENCOUNTER 2024-06-23 12:44 | Emergency (ER) | payer SELFPAY ==
--- OUTSIDE RECORDS SUMMARY | 2024-06-23 12:49 | XMS REPORT | Continuity of Care Document ---
Author Name Unknown Address [address] [facility] [address] [place] [address] Organization [facility] Address [address] [facility] [place] [address] Care Team Providers Care Enterprise Security Architect Name Role Phone CARMELINA HANLEY Primary Care Physician Unavailab RAMAN Bar Attending Clinician Unavailable RAMAN MAN Attending Clinician Unavailable Saulo Taveras MD Attending Clinician [phone] GARY TAVERAS Attending Clinician Unavailable Gary Warner Attending Clinician [phone] Doctor Unassigned, [place] Attending Clinician U Raman Valderrama MD Attending Clinician [phone] SHERLEY DIEZ Attending Clinician Unavailable Sherley Diez MD Attending Clinician [phone] JACQUIE NORIEGA Attending Clinician Unavail able GC_GCBZW_Teresa_S Attending Clinician UnavailJOSÉ Gonsalez Attending Clinician Unavailable Doctor Unassigned, [place] Attending Clinician U Jacquie Johnson Attending Clinician + Geraldine Galvan MD Attending Clinician [phone] Radiology Attending Clinician Unavailable RADIOLOGY Attending Clinician Unavailable GERALDINE GALVAN Attending Clinician Unavailable Prisca Dinh RN Attending Clinician [phone] Chavo Jose MD Attending Clinician [phone] Rojelio De La Rosa MD Attending Clinician NATI DIEZS Admitting Clinician Unavailable [email or web address]_S Admitting Clinician UnavailRojelio Brush MD Admitting Clinician [phone] Payers Payer Name Policy Type Policy Number Effective Date Expirati on Date Source Problems Condition Name Condition Details Condition Category Status Onset Date Resolution Date Last Treatment Date Treating Clinician Comments Source Elevated blood pressure reading without diagnosis of hypertensi on Elevated blood pressure reading without diagnosis of hypertensi on Disease Active 3-29 00:00: 00 [facility] Failure of outpatient treatment Failure of outpatient treatment Disease Active 08-24 00:00: 00 [facility] History of anxiety History of anxiety Disease Active 10-21 00:00: 00 [facility] Tobacco use disorder Tobacco use disorder Disease Recurre nce 10-21 00:00: 00 [facility] General counseling and advice for contracept jamison management General counseling and advice for contracept jamison management Disease Recurre nce 11-01 00:00: 00 Overview: Formattin g of this note might be different from the original. 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 [facility] Generalize d anxiety disorder Generalize d anxiety disorder Disease Recurre nce 11-01 00:00: 00 [facility] Morbid obesity Morbid obesity Disease Recurre tne 11-01 00:00: 00 [facility] Missed menses Missed menses Disease Resolve d 10-21 00:00: 00 2024-04-30 00:00:00 2024-04-30 14:56:34 [facility] Cellulitis of submental space Cellulitis of submental space Disease Resolve d 08-25 00:00: 00 2024-04-28 00:00:00 2024-04-28 17:01:18 [facility] Multiparit y Multiparit y Disease Resolve d 10-21 00:00: 00 2013-10-21 00:00:00 2013-10-21 21:54:10 [facility] Anemia Anemia Disease Resolve d 11-01 00:00: 00 2013-10-21 00:00:00 2021-08-21 00:26:42 [facility] Immune to rubella Immune to rubella Disease Resolve d 07-16 00:00: 00 2013-10-21 00:00:00 2013-10-21 21:52:43 Univers [facility] Immune to varicella Immune to varicella Disease Resolve d 07-04 00:00: 00 2013-10-21 00:00:00 2013-10-21 21:52:45 [facility] Headache Headache Disease Resolve d 06-06 00:00: 00 2013-10-21 00:00:00 2021-08-21 00:24:19 [facility] Routine follow-up Routine follow-up Disease Resolve d 10-04 00:00: 00 2012-11-01 00:00:00 2012-11-01 14:53:21 [facility] delivery delivered delivery delivered Disease Resolve d 09-17 00:00: 00 2012-11-01 00:00:00 2021-08-21 00:25:57 [facility] Gestationa l hypertensi on Gestationa l hypertensi on Disease Resolve d 09-13 00:00: 00 2012-11-01 00:00:00 2012-11-01 14:53:17 [facility] Abdominal pain complicati ng Abdominal pain complicati ng Disease Resolve d 09-13 00:00: 00 2012-10-04 00:00:00 2012-10-04 13:52:49 [facility] Antepartum genitourin stephen tract infection Antepartum genitourin stephen tract infection Disease Resolve d 08-26 00:00: 00 2012-10-04 00:00:00 2021-08-21 00:25:36 [facility] Vaginal discharge in Vaginal discharge in Disease Resolve d 08-26 00:00: 00 2012-10-04 00:00:00 2012-10-04 09:09:57 [facility] Carpal tunnel syndrome Carpal tunnel syndrome Disease Resolve d 07-22 00:00: 00 2012-10-04 00:00:00 2012-10-04 13:52:51 [facility] Abnormal maternal glucose tolerance, antepartum Abnormal maternal glucose tolerance, antepartum Disease Resolve d 07-17 00:00: 00 2012-10-04 00:00:00 2012-10-04 13:52:53 [facility] Supervisio n of other normal Supervisio n of other normal Disease Resolve d 07-16 00:00: 00 2012-10-04 00:00:00 2021-08-21 00:25:00 [facility] Abdominal trauma Abdominal trauma Disease Resolve d 07-16 00:00: 00 2012-10-04 00:00:00 2012-10-04 13:52:36 [facility] Rubella immune Rubella immune Disease Resolve d 07-04 00:00: 00 2012-10-04 00:00:00 2012-10-04 13:52:42 [facility] Nausea Nausea Disease Resolve d 07-04 00:00: 00 2012-10-04 00:00:00 2012-10-04 13:52:38 [facility] Pain in joint, lower leg Pain in joint, lower leg Disease Resolve d 08-29 00:00: 00 2012-10-04 00:00:00 2012-10-04 13:52:45 [facility] UTI (urinary tract infection) UTI (urinary tract infection) Disease Resolve d 06-06 00:00: 00 2012-07-04 00:00:00 2012-07-04 09:51:20 [facility] Epigastric pain Epigastric pain Disease Resolve d 10-31 00:00: 00 2012-07-04 00:00:00 2012-07-04 09:51:12 [facility] Allergies, Adverse Reactions, Alerts Allergy Name Allergy Type Status Severity Reaction(s) Onset Date Inactive Date Treating Clinician Comments Source ATORVAST ATIN DRUG INGREDI Active Hives 24 00:00: 00 [facility] Atorvast atin Drug Allergy Active Hives 04-28 00:00: 00 [facility] MORPHINE DRUG INGREDI Active Low Anxiety 08-24 00:00: 00 [facility] Morphine Propensi ty to adverse reaction s Active Nausea and/or Vomiting 08-24 00:00: 00 [facility] Social History Social Habit Start Date Stop Date Quantity Comments Source [facility] Alcoholic beverage intake 2024-04-30 00:00:00 2024-04-30 00:00:00 Current drinker of alcohol (finding) [facility] History of Social function 2024-04-28 00:00:00 2024-04-28 00:00:00 [facility] Alcohol Comment 2024-04-28 00:00:00 2024-04-28 00:00:00 socially [facility] Cigarettes smoked current (pack per day) - Reported 2024-04-28 00:00:00 2024-04-28 00:00:00 [facility] Cigarette pack-years 2024-04-28 00:00:00 2024-04-28 00:00:00 [facility] Tobacco use and exposure 2024-04-28 00:00:00 2024-04-28 00:00:00 Smokeless tobacco non-user [facility] Tobacco Comment 2024-04-28 00:00:00 2024-04-28 00:00:00 quit last week [facility] Alcohol intake 2023-01-11 00:00:00 2023-01-11 00:00:00 .24 /d [facility] Exposure to SARS-CoV-2 (event) 2021-04-03 00:00:00 2021-05-03 09:51:00 Not sure [facility] Education 2020-08-24 00:00:00 2020-08-24 00:00:00 21 [facility] History of tobacco use 2012-02-02 00:00:00 2012-02-02 00:00:00 Cigarette Smoker [facility] Sex assigned at 1990 00:00:00 1990 00:00:00 [facility] Smoking Status Start Date Stop Date Source Ex-smoker 2024-04-28 00:00:00 2024-04-28 00:00:00 [facility] Smokes tobacco daily 2021-05-03 00:00:00 [facility] Medications Ordered Medication Name Filled Medication Name Start Date Stop Date Current Medication? Ordering Clinician Indication Dosage Frequency Signature (SIG) Comments Components Source acetaminoph en (TYLENOL) tablet 975 mg 2022-02 21:00: 00 01-11 19:56 :00 No 975mg 975 mg, Oral, ONCE NOW, 1 dose, On [place] 01/11/23 at 1500, [facility] ondansetron (ZOFRAN (PF)) injection 4 mg 2022-02 20:00: 00 01-11 19:56 :00 No 4mg 4 mg, Slow IV Push, ONCE, 1 dose, On [place] 01/11/23 at 1400, [facility] iopamidol (ISOVUE 370-500 mL) injection 80 mL 2022-02 20:00: 00 01-11 20:00 :00 No [id number] 80mL 80 mL, Intravenou s, ONCE, 1 dose, On [place] 01/11/23 at 1400, Routine [facility] ketorolac (TORADOL) injection 30 mg 2022-02 19:15: 00 01-11 18:46 :00 No 30mg 30 mg, Slow IV Push, ONCE NOW, 1 dose, On [place] 01/11/23 at 1315, [facility] ampicillin- sulbactam (UNASYN) 3 g in NaCl 0.9% (NS) 100 mL MINI-BAG 2022-02 18:30: 00 01-11 19:52 :00 No 3g 3 g, IV Piggyback, ONCE, 1 dose, On [place] 01/11/23 at 1230, Administer over 30 Minutes, 100 mL
Reas on for Anti-Infec tive: Documented Infection< br>Documen tali Infection Site: HEENT
D uration of Therapy: Other (see Comments) [facility] dexamethaso ne sod phos PF injection 10 mg 2022-02 18:30: 00 01-11 18:47 :00 No 10mg 10 mg, Slow IV Push, ONCE, 1 dose, On [place] 01/11/23 at 1230, 1 mL [facility] diclofenac 75 mg EC tablet 2022-02 00:00: 00 Yes [id number] 75mg Take 1 tablet by mouth in the morning and 1 tablet in the evening. Take with meals. [facility] acetaminoph en (TYLENOL ARTHRITIS PAIN) 650 mg CR tablet 2022-02 00:00: 00 04-30 00:00 :00 No [id number] 650mg Take 1 tablet by mouth every 8 (eight) hours as needed for Pain. [facility] ondansetron 4 mg disintegrat ing tablet 2022-02 00:00: 00 04-28 00:00 :00 No [id number] 4mg Take 1 tablet by mouth every 8 (eight) hours as needed for Nausea and Vomiting (N/V). [facility] amoxicillin -clavulanat e 875-125 mg per tablet 2022-02 00:00: 00 01-22 05:59 :00 No [id number] 1{tbl} Take 1 tablet by mouth every 12 (twelve) hours for 10 days. [facility] dicyclomine 20 mg tablet 09-25 00:00: 00 05-03 00:00 :00 No [id number] 20mg Take 1 tablet by mouth every 6 (six) hours as needed for Abdominal pain. [facility] ondansetron (ZOFRAN) 4 mg tablet 09-25 00:00: 00 05-03 00:00 :00 No [id number] 4mg Take 1 tablet by mouth every 8 (eight) hours as needed for Nausea and Vomiting (N/V). [facility] omeprazole 20 mg capsule 08-27 00:00: 05-03 00:00 :00 No [id number] 20mg Take 1 capsule by mouth daily. [facility] sulfamethox azole-trime thoprim 800-160 mg per tablet 08-26 00:00: 00 05-03 00:00 :00 No [id number] 1{tbl} Take 1 tablet by mouth 2 (two) times daily. [facility] HYDROcodone -acetaminop hen 5-325 mg tablet 08-26 00:00: 00 05-03 00:00 :00 No [id number] 1{tbl} Take 1 tablet by mouth every 6 (six) hours as needed for Pain (scale 4-6) or Pain (scale 7-10). Indication s: acute pain [facility] Immunizations Ordered Immunization Name Filled Immunization Name Date Status Comments Source TDAP 2012-09-25 00:00:00 Completed [facility] TDAP 2012-09-25 00:00:00 Completed [facility] Meningococcal Vaccine 2011-01-25 00:00:00 Completed [facility] Meningococcal Vaccine 2011-01-25 00:00:00 Completed [facility] Rubella 2010-04-01 00:00:00 Completed [facility] Rubella 2010-04-01 00:00:00 Completed [facility] Td 2006-02-05 00:00:00 Completed [facility] TD, NOS 2006-02-05 00:00:00 Completed Varicella (varivax)(chicken pox) 1996-02-06 00:00:00 Completed [facility] Varicella (varivax)(chicken pox) 1996-02-06 00:00:00 Completed Meningococcal Vaccine Unknown Completed [facility] Rubella Unknown Completed [facility] TD, NOS Unknown Completed [facility] Varicella (varivax)(chicken pox) Unknown Completed [facility] TDAP Unknown Completed [facility] Vital Signs Vital Name Observation Time Observation Value Comments S ource Systolic blood pressure 2024-04-28 20:04:00 123 mm[Hg] [facility] Diastolic blood pressure 2024-04-28 20:04:00 67 mm[Hg] [facility] Heart rate 2024-04-28 20:04:00 76 /min [facility] Body temperature 2024-04-28 20:04:00 36.56 Ann-Marie [facility] Respiratory rate 2024-04-28 20:04:00 18 /min [facility] Body height 2024-04-28 20:04:00 157.5 cm [facility] Body weight 2024-04-28 20:04:00 115.44 kg [facility] BMI 2024-04-28 20:04:00 46.55 kg/m2 [facility] Systolic blood pressure 2023-01-11 20:00:00 144 mm[Hg] [facility] Diastolic blood pressure 2023-01-11 20:00:00 100 mm[Hg] [facility] Heart rate 2023-01-11 20:00:00 74 /min [facility] Respiratory rate 2023-01-11 20:00:00 16 /min [facility] Oxygen saturation in Arterial blood by Pulse oximetry 2023-01-11 20:00:00 97 /min [facility] Body temperature 2023-01-11 18:04:00 37.11 Ann-Marie [facility] Body height 2023-01-11 18:04:[address] [facility] Body weight 2023-01-11 18:04:[address] [facility] BMI 2023-01-11 18:04:00 47.55 kg/m2 [facility] Systolic blood pressure 2021-05-03 14:52:00 144 mm[Hg] [facility] Diastolic blood pressure 2021-05-03 14:52:00 98 mm[Hg] [facility] Heart rate 2021-05-03 14:52:00 75 /min [facility] Body temperature 2021-05-03 14:51:00 36.22 Ann-Marie [facility] Respiratory rate 2021-05-03 14:51:00 20 /min [facility] Body height 2021-05-03 14:51:[address] [facility] Body weight 2021-05-03 14:51:[address] [facility] BMI 2021-05-03 14:51:00 46.93 kg/m2 [facility] Systolic blood pressure 2021-05-03 14:52:00 144 mm[Hg] [facility] Diastolic blood pressure 2021-05-03 14:52:00 98 mm[Hg] [place] [facility] Heart rate 2021-05-03 14:52:00 75 /min [facility] Body temperature 2021-05-03 14:51:00 36.22 Ann-Marie [facility] Respiratory rate 2021-05-03 14:51:00 20 /min [facility] Body height 2021-05-03 14:51:[address] [facility] Body weight 2021-05-03 14:51:[address] [facility] BMI 2021-05-03 14:51:00 46.93 kg/m2 [facility] Procedures Procedure Date / Time Performed Performing Clinicia n Source GALV ONLY - VAGINAL PATHOGENS BY NUCLEIC ACID TESTING 2024-04-28 21:50:00 Gary Taveras [facility] HIGH RISK HPV-THIN PREP 2024-04-28 21:50:00 Nitin Gary [facility] PAP SMEAR-LIQUID BASED-CP 2024-04-28 21:50:00 Nitin [facility] CT SOFT TISSUE NECK W CONTRAST 2023-01-11 19:00:00 Sherley Diez [facility] COMP. METABOLIC PANEL ([id number]) 2023-01-11 18:45:00 Sherley Diez [facility] CBC WITH DIFF 2023-01-11 18:45:00 Sherley Diez [facility] POCT TEST 2023-01-11 18:39:00 Sravan Diez [facility] CONSENT/REFUSAL FOR DIAGNOSIS AND TREATMENT 2023-01-11 18:00:13 Doctor Unassigned, [place] [facility] LAB ONLY PAP SMEAR-LIQUID BASED 2021-05-03 16:08:00 Jacquie Noriega [facility] PAP SMEAR-LIQUID BASED-CP 2021-05-03 16:08:00 Jacquie Noriega [facility] Encounters Start Date/Time End Date/Time Encounter Type Admission Type Attending Clinicians Care Facility Care Department Encounter ID Source 2020-12-06 17:05:57 Emergency [facility] [id number] [facility] 2024-04-28 00:00:00 2024-04-28 17:00:20 Letter (Out) Saulo Taveras [facility] SCREEN REPAIRER CRUSHER [facility]ILD [facility] 1..114 350.1.13.10 4.2.7.2.686 [id number] [facility] 2024-04-28 15:00:00 2024-04-28 16:56:47 Outpatient R GARY TAVERAS [facility] [id number] [facility] 2024-04-28 15:00:00 2024-04-28 16:56:47 Office Visit Gary Taveras [facility] SCREEN REPAIRER CRUSHER [facility] CHILD [facility] 1..114 350.1.13.10 4.2.7.2.686 [id number] [facility] 2024-02-15 00:00:00 2024-03-22 18:21:46 Patient Secure Msg Doctor Unassigned, [place] Doctor Unassigned, [place] [facility] 1.114 350.1.13.10 4.2.7.2.686 [id number] [facility] 2024-03-06 15:00:00 2024-03-06 15:00:00 Outpatient R RAMAN MAN DIVYA [facility] [id number] [facility] 2024-02-29 00:00:00 2024-02-29 16:42:58 Telephone Raman Man [facility] ([facility] 1..114 350.1.13.10 4.2.7.2.686 [id number] [facility] 2024-02-28 00:00:00 2024-02-28 17:24:06 Telephone Raman Man [facility] ([facility]) 1.2.840.114 350.1.13.10 4.2.7.2.686 [id number] [facility] 2024-02-21 00:00:00 2024-02-21 17:23:53 Telephone Raman Man [facility] ([facility]) 1.2.840.114 350.1.13.10 4.2.7.2.686 [id number] [facility] 2023-01-11 12:05:00 2023-01-11 14:34:00 Emergency X SHERLEY DIEZ [facility] ERT [id number] [facility] 2023-01-11 12:05:00 2023-01-11 14:34:[address] Emergency Sherley Diez [facility] 1.2.840.114 350.1.13.10 4.2.7.2.686 [id number] [facility] 2023-01-01 09:15:00 2023-01-01 09:15:00 Outpatient JACQUIE WU [facility] [id number] [facility] 2022-12-02 00:00:00 2022-12-02 00:00:00 Outpatient GC_GCBZW_Ka janela_S [facility] [id number] [facility] 2021-12-03 12:38:34 2021-12-03 12:38:34 Outpatient PRASANNA [facility] [id number] [facility] [place] 2021-07-05 13:00:00 2021-07-05 13:00:00 Outpatient JOSÉ PURVIS [facility] [id number] [facility] 2021-06-03 13:30:00 2021-06-03 13:30:00 Outpatient R JOSÉ HAQUE [facility] [id number] [facility] 2021-05-23 00:00:00 2021-05-23 00:00:00 Orders Only Doctor Unassigned, [place] [facility] 1.84.114 350.1.13.10 4.2.7.2.686 [id number] [facility] 2021-05-19 00:00:00 2021-05-19 00:00:00 Telephone Jacquie Noriega [facility] SCREEN REPAIRER CR[facility] 1..114 350.1.13.10 4.2.7.2.686 [id number] [facility] 2021-05-03 09:30:00 2021-05-03 10:51:04 Outpatient R JACQUIE NORIEGA [facility] [id number] [facility] 2021-05-03 09:30:00 2021-05-03 10:51:04 Office Visit Jacquie Noriega [facility] SCREEN REPAIRER CRUS[facility] 1.84.114 350.1.13.10 4.2.7.2.686 [id number] [facility] 2021-05-03 09:30:00 2021-05-03 10:51:04 Outpatient R JACQUIE NORIEGA [facility] [id number] [facility] 2021-05-03 09:30:00 2021-05-03 10:51:04 Outpatient R JACQUIE NORIEGA [facility] [id number] [facility] 2021-05-03 09:30:00 2021-05-03 10:51:04 Office Visit Jacquie Noriega [facility] SCREEN REPAIRER CRUSHER [facility] 1.84.114 350.1.13.10 4.2.7.2.686 [id number] [facility] 2021-05-03 00:00:00 2021-05-03 00:00:00 Orders Only Doctor Unassigned, [place] [facility] 1.2.840.114 350.1.13.10 4.2.7.2.686 [id number] [facility] 2021-05-03 00:00:00 2021-05-03 00:00:00 Telephone Jacquie Noriega [facility] SCREEN REPAIRER CRUSHER [facility] 1.2.840.114 350.1.13.10 4.2.7.2.686 [id number] [facility] 2021-05-03 00:00:00 2021-05-03 00:00:00 Telephone Jacquie Noriega [facility] SCREEN REPAIRER CRUSHER [facility] 1.2.840.114 350.1.13.10 4.2.7.2.686 [id number] [facility] 2020-09-24 23:09:00 2020-09-25 04:02:00 Emergency [facility] 1.2.840.114 350.1.13.10 4.2.7.2.686 [id number] [facility] 2020-09-24 23:09:00 2020-09-25 04:02:00 Emergency [facility] 1.2.840.114 350.1.13.10 4.2.7.2.686 [id number] 2020-09-02 15:30:00 2020-09-02 23:59:00 Hospital Encounter Radiology [facility] 1.2.840.114 350.1.13.10 4.2.7.2.686 [id number] [facility] 2020-09-02 15:30:00 2020-09-02 23:59:00 Hospital Encounter Radiology [facility] 1.2.840.114 350.1.13.10 4.2.7.2.686 [id number] 2020-09-02 00:00:00 2020-09-02 00:00:00 Outpatient R RADIOLOGY [facility] [id number] [facility] 2020-08-27 21:50:00 2020-08-27 23:10:00 Emergency Geraldine Galvan [facility] 1.2.840.114 350.1.13.10 4.2.7.2.686 [id number] [facility] 2020-08-27 21:50:00 2020-08-27 23:10:00 Emergency Geraldine Galvan [facility] 1.2.840.114 350.1.13.10 4.2.7.2.686 [id number] 2020-08-27 21:50:00 2020-08-27 21:50:00 Emergency X GERALDINE GALVAN [facility] ERT [id number] [facility] 2020-08-27 00:00:00 2020-08-27 00:00:00 Transition of Care Prisca Dinh 1.2.840.114 350.1.13.10 4.2.7.2.686 [id number] [facility] 2020-08-27 00:00:00 2020-08-27 00:00:00 Transition of Care Prisca Dinh 1.2.840.114 350.1.13.10 4.2.7.2.686 [id number] 2020-08-24 14:12:00 2020-08-26 13:37:00 Hospital Encounter Chavo Jose Jelani [facility] 1.2.840.114 350.1.13.10 4.2.7.2.686 [id number] 2020-08-24 14:12:00 2020-08-26 13:37:00 Hospital Encounter Chavo Jose Jelani [facility] 1.2.840.114 350.1.13.10 4.2.7.2.686 [id number] [facility] [facility] 2020[facility]-24 13:52:00 2020-08-24 13:52:00 Emergency X [facility] ERT [id number] [facility] 2020-08-24 00:00:00 2020-08-24 00:00:00 Orders Only Doctor Unassigned, [facility] [id number] 2020-08-24 00:00:00 2020-08-24 00:00:00 Orders Only Doctor Unassigned, [facility] [id number] [facility] Results Test Description Test Time Test Comments Results Result Co mments Source [facility] WITH [id number] 19:29:18* Test Item Value Reference Range Interpretation Comme nts WBC (test code = 6690-2) 7.78 See_Comment [Automated [employer]] The system which generated this result transmitted reference range: 4.30 - 11.10 10*3/?L. The reference range was not used to interpret this result as normal/abnormal. RBC (test code = 789-8) 4.53 See_Comment [Automated [employer] ge] The system which generated this result [...] 33.2 g/dL 31.6-35.1 RDW-SD (test code = 49103-5) 38.3 fL 39.0-49.9 L RDW-CV (test code = 788-0) 12.6 % 12.0-15.5 PLT (test code = 777-3) 345 See_Comment [Automated messa ge] The system which generated this result transmitted reference range: 166 - 358 10*3/?L. The reference range was not used to interpret this result as normal/abnormal. MPV (test code = 34549-1) 8.6 fL 9.5-12.9 L NRBC/100 WBC (test code = 1133937466) 0.0 See_Comment [Automated [employer] ssage] The system which generated this result transmitted reference range: 0.0 - 10.0 /100 WBCs. The reference range was not used to interpret this result as normal/abnormal. NRBC x10^3 (test code = 8226232915) See_Comment [Automated messa ge] The system which generated this result transmitted reference range: 10*3/?L. The reference range was not used to interpret this result as normal/abnormal. GRAN MAT (NEUT) % (test code = 770-8) 70.2 % IMM GRAN % (test code = 0951042915) 0.40 % LYMPH % (test code = 736-9) 21.9 % MONO % (test code = 5905-5) 4.4 % EOS % (test code = 713-8) 2.6 % BASO % (test code = 706-2) 0.5 % GRAN MAT x10^3(ANC) (test code = 8874481062) 5.47 10*3/uL 1.88-7.09 IMM GRAN x10^3 (test code = 4917079490) 0.03 10*3/uL 0.00-0.06 LYMPH x10^3 (test code = 731-0) 1.70 10*3/uL 1.32-3.29 MONO x10^3 (test code = 742-7) 0.34 10*3/uL 0.33-0.92 EOS x10^3 (test code = 711-2) 0.20 10*3/uL 0.03-0.39 BASO x10^3 (test code = 704-7) 0.04 10*3/uL 0.01-0.07 Lab Interpretation (test code = 09850-1) [id number]* Test Item Value Reference Range Interpretation Comme nts POCT PREG (test code = 1605) Negative On board controls acceptable with C Line (test code = 3574) Yes POCT PREG LOT # (test code = 3575) [id number] POCT PREG TEST DATE ( test code = 3576) 04/15/2024 Lab Interpretation (test cod e = 67780-9) Normal [facility] Notes Date/Time Note Provider Source 2024-02-29 16:35:08 Pt identified by name and . Pt reschedule appt due to new job. Pt scheduled for lab appointment. Pt confirmed date & time. AT [place] RN [facility] 2024-02-28 17:22:28 Chart reviewed. Labs ordered for upcoming Nephrology appointment per guidelines. MyChart message and/or letter sent to patient as an appointment reminder. AT [place] RN [facility] 2024-02-21 17:21:37 Chart reviewed. Labs ordered for upcoming Nephrology appointment per guidelines. MyChart message and/or letter sent to patient as an appointment reminder. 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
--- NOTE | 2024-06-23 14:35 | RAD REPORT ---
EXAM: Chest Pa And Lat (2 Views) HISTORY: 33 years Female DYSPNEA COMPARISON: 07/14/2023 FINDINGS: LUNGS/PLEURA: The lungs are clear. No pleural effusions or pneumothorax. No pulmonary edema. CARDIAC/MEDIASTINUM: The cardiac silhouette is within normal limits. UPPER ABDOMEN: No significant abnormality. BONES: No acute abnormality. LINES/TUBES/OTHER: N/A IMPRESSION: No evidence of acute cardiopulmonary disease. No significant change from prior.
--- NOTE | 2024-06-23 14:36 | RAD REPORT ---
EXAMINATION: Neck Soft Tissue VIEWS: Two views CLINICAL INDICATION: Female, 33 years old. Sore throat;Swelling COMPARISON: No prior exam. IMPRESSION: No opaque foreign body. No prevertebral soft tissue swelling. Epiglottis is normal caliber. Airway ap pears widely patent. Reversal of the normal cervical lordosis may be positional.
[2024-06-23 15:46] LABS: SARS-CoV-2 Antigen Rapid Res Negative (Negative)
[2024-06-23] MEDS ORDERED: ONDANSETRON 4 MG/2 ML VIAL ONE (15:58)
[2024-06-23] MEDS ORDERED: NA CHLORIDE 0.9% 1,000 ML ONE (15:58)
[2024-06-23] MEDS ORDERED: KETOROLAC 30 MG/ML INJ ONE (15:58)
[2024-06-23 16:06] LABS: Absolute Basophils 0.1 K/uL (0-0.5); Absolute Eosinophils 0.2 K/uL (0-0.5); Absolute Lymphocytes (CBC) 2.5 K/uL (0.7-4.9); Absolute Monocytes 0.6 K/uL (0.1-1.3); Absolute Neutrophil 7.9 K/uL (1.8-8.0); Basophils % 0.7 % (0-1.3); Eosinophils % 1.8 % (0-4.4); Hematocrit 37.9 % (36.0-45.0); Hemoglobin 13.1 g/dL (12.0-15.0); Lymphocytes % 22.5 % (15.3-44.8); MCH 27.9 pg (27.0-35.0); MCHC 34.5 g/dL (32.0-36.0); MPV 7.3 fL (7.6-11.3); Monocytes % 5.1 % (3.3-12.3); Neutrophils % 69.9 % (41.7-73.7); Nucleated Red Blood Cells % 0.2 % (0-0); Platelets 342 thou/uL (152-406); RBC Red Blood Cell Count 4.68 M/uL (3.86-4.86)
[2024-06-23 16:19] LABS: Anion Gap 7.6 mEq/L (5.0-15.0); Potassium 3.6 mEq/L (3.5-5.1)
[2024-06-23 16:32] LABS: Monoscreen NEG (NEG)
--- NOTE | 2024-06-23 16:51 | ER ---
Nurse's Notes [facility] Name: Omayra Parra Age: 33 yrs Sex: Female : 1990 Arrival Date: 06/23/2024 Time: 12:44 Bed 12 Private MD: Diagnosis: Viral infection, unspecified Presentation: 06/23 13:18 Chief complaint: Patient states: she was evaluated in the ER , 06/22/24. Patient ap3 reports that her symptoms have not improved and she feels worse today. patient complains of nasal drainage, nausea and Diarrhea. Coronavirus screen: At this time, the client does not indicate any symptoms associated with coronavirus-19. Ebola Screen: No symptoms or risks identified at this time. Initial Sepsis Screen: Does the patient meet any 2 criteria? No. Patient's initial sepsis screen is negative. Does the patient have a suspected source of infection? No. Patient's initial sepsis screen is negative. Risk Assessment: Do you want to hurt yourself or someone else? Patient reports no desire to harm self or others. Onset of symptoms is unknown. 13:18 Method Of Arrival: Ambulatory ap3 13:18 Acuity: GAYE 3 ap3 Triage Assessment: 13:29 General: Appears in no apparent distress. Behavior is calm, cooperative, appropriate ap3 for age, Reports chills for feeling ill for fatigue for. Pain: Complains of pain in generalized body aches. Neuro: Level of Consciousness is awake, alert, obeys commands, Oriented to person, place, time, situation, Appropriate for age. Cardiovascular: Patient's skin is warm and dry. Cardiovascular:. Respiratory: Airway is patent Respiratory effort is even, unlabored, Respiratory pattern is regular, symmetrical. Respiratory: Reports cough that is. GI: Reports nausea. 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 - Infectious Disease History:: Denies. - Social history:: Smoking status: Reported history of juuling and/or vaping. Screenin:30 Abuse screen: Denies threats or abuse. Nutritional screening: No deficits noted. ap3 Tuberculosis screening: No symptoms or risk factors identified. 13:32 [facility] ED Fall Risk Assessment (Adult) History of falling in the last 3 months, ap3 including since admission No falls in past 3 months (0 pts) Confusion or Disorientation No (0 pts) Intoxicated or Sedated No (0 pts) Impaired Gait No (0 pts) Mobility Assist Device Used No (0 pt) Altered Elimination No (0 pt) Score/Fall Risk Level 0 - 2 = Low Risk Oriented to surroundings, Maintained a safe environment, Educated pt \T\ family on fall prevention, incl call for assistance when getting out of bed, Assessed \T\ reinforced patient's understanding of fall precautions, Hourly rounding (assess needs \T\ fall precautionary measures) done, Used ambulatory aids as needed (educated on \T\ assisted with). Assessment: 15:20 General: Appears in no apparent distress. comfortable, Behavior is calm, cooperative, jb4 appropriate for age. Pain: Denies pain. Neuro: Level of Consciousness is awake, alert, obeys commands, Oriented to person, place, time, situation. Cardiovascular: Patient's skin is warm and dry. Respiratory: Airway is patent Respiratory effort is even, unlabored, Respiratory pattern is regular, symmetrical. GI: Abdomen is round non-distended, obese, Reports diarrhea, nausea, vomiting. Derm: Skin Skin is pink, warm \T\ dry. Musculoskeletal: Circulation, motion, and sensation intact. Range of motion: intact in all extremities. 16:30 Reassessment: Patient appears in no apparent distress at this time. Patient and/or jb4 family updated on plan of care and expected duration. Pain level reassessed. Patient is alert, oriented x 3, equal unlabored respirations, skin warm/dry/pink. 17:04 Reassessment: Patient appears in no apparent distress at this time. Patient and/or jb4 family updated on plan of care and expected duration. Pain level reassessed. Patient is alert, oriented x 3, equal unlabored respirations, skin warm/dry/pink. Vital Signs: 13:18 BP 137 / 75; Pulse 85; Resp 17; Temp 98.8; Pulse Ox 100% ; Weight 97.52 kg; Height 5 ap3 ft. 2 in. ; 13:18 Body Mass Index 39.32 (97.52 kg, 157.48 cm) ap3 ED Course: 12:46 Patient arrived in ED. im 12:47 [facility] sb4 12:47 Mela Dubois MD is Attending Physician. sb4 13:28 Triage completed. ap3 13:30 EKG done, by ED staff, reviewed by Yany Frye PA-C. ap3 13:33 Arm band placed on right wrist. ap3 14:27 Chest Pa And Lat (2 Views) XRAY In Process Unspecified. EDMS 14:27 Neck Soft Tissue XRAY In Process Unspecified. EDMS 15:45 Inserted saline lock: 20 gauge in right antecubital area, using aseptic technique. jb4 Blood collected. 15:49 CBC with Diff Sent. jb4 15:49 BMP Sent. jb4 15:49 [place] Screen Profile Sent. jb4 15:49 Troponin HS Sent. jb4 17:04 No provider procedures requiring assistance completed. IV discontinued, intact, jb4 bleeding controlled, No redness/swelling at site. Pressure dressing applied. 17:04 Patient has correct armband on for positive identification. Bed in low position. Call jb4 light in reach. Side rails up X 1. Provided Education on: discharge instructions.. Administered Medications: 16:19 Drug: NS 0.9% IV 1000 ml IV at 1 bolus Per protocol; to be given as a bolus over 60 jb4 minutes Route: IV; Rate: 1 bolus; Site: right antecubital; 17:05 Follow up: IV Status: Completed infusion; IV Intake: 1000ml jb4 16:19 Drug: Ketorolac IVP 15 mg IVP once Route: IVP; Site: right antecubital; jb4 17:06 Follow up: Response: No adverse reaction; Marked relief of symptoms jb4 16:19 Drug: Ondansetron IVP 4 mg IVP once; over 2 minutes Route: IVP; Site: right antecubital;jb4 17:06 Follow up: Response: No adverse reaction; Marked relief of symptoms jb4 Medication: 17:04 VIS not applicable for this client. jb4 Intake: 17:05 IV: 1000ml; Total: 1000ml. jb4 Outcome: 16:51 Discharge ordered by . sb4 17:04 Discharged to home ambulatory, jb4 17:04 Condition: stable 17:04 Discharge instructions given to patient, Instructed on discharge instructions, follow up and referral plans. Demonstrated understanding of instructions, follow-up care, 17:06 Patient left the ED. ss Signatures: Dispatcher [employer] EDRachell Clark RN RN Isrrael Massey RN RN cristin4 Mary Lau RN RN ap3 Yany Frye PA-C PASully sb4 Aviva Solorzano
--- NOTE | 2024-06-23 16:51 | EDPHYS ---
Physician Documentation [facility] Name: Omayra Parra Age: 33 yrs Sex: Female : 1990 Arrival Date: 06/23/2024 Time: 12:44 Bed 12 Private MD: ED Physician Mela Dubois HPI: 06/23 14:03 This 33 yrs old Female presents to ER via Ambulatory with complaints of Nausea, Nasal sb4 Congestion, Diarrhea. 14:03 Patient states she was seen here 4 days ago for sore throat and facial swelling. States sb4 that she had a full workup done, including a CAT scan of her neck and was told everything was negative, was diagnosed with pharyngitis, and discharged with Augmentin. States that she did not fill the Augmentin due to financial reasons, but has been taking leftover amoxicillin at home. States that she was feeling better over the weekend, but this morning she woke up with increased nasal drainage, nausea, diarrhea, and persistent sore throat. States if feels like there is something stuck in her throat and that she has a strange taste in her mouth. 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 - Infectious Disease History:: Denies. - Social history:: Smoking status: Reported history of juuling and/or vaping. ROS: 14:03 Cardiovascular: Negative for chest pain, palpitations, and edema, sb4 14:03 Constitutional: Positive for fatigue, malaise, 14:03 ENT: Positive for nasal discharge, sore throat, per HPI, 14:03 Abdomen/GI: Positive for nausea, diarrhea, 14:03 All other systems are negative, Exam: 14:05 Constitutional: This is a well developed, well nourished patient who is awake, alert, sb4 and in no acute distress. Head/Face: Normocephalic, atraumatic. Eyes: Extra-ocular motions intact. Periorbital areas with no swelling, redness, or edema. ENT: Mucous membranes moist. Cardiovascular: Regular rate and rhythm with a normal S1 and S2. Respiratory: No increased work of breathing, no retractions or nasal flaring. Abdomen/GI: Soft, non-tender, no distension. Skin: Warm, dry with normal turgor. Normal color with no rashes, no lesions, and no evidence of cellulitis. 14:05 ENT: Posterior pharynx: Airway: normal, no evidence of obstruction, patent, Tonsils: are normal in appearance, swelling, is not appreciated, erythema, is not appreciated, Vital Signs: 13:18 BP 137 / 75; Pulse 85; Resp 17; Temp 98.8; Pulse Ox 100% ; Weight 97.52 kg; Height 5 ap3 ft. 2 in. ; 13:18 Body Mass Index 39.32 (97.52 kg, 157.48 cm) ap3 MDM: 12:48 Medical Screening Exam initiated sb4 14:06 External Records Reviewed: Outpatient record: Physician note, labs, imaging from 06/19. sb4 Strep negative,Throat swab grew normal respiratory freddie. Labs WNL. 16:50 Data reviewed: vital signs, nurses notes, lab test result(s), EKG, radiologic studies, sb4 and as a result, I will discharge patient. Counseling: I had a detailed discussion with the patient and/or guardian regarding the historical points, exam findings, and any diagnostic results supporting the discharge/admit diagnosis, the presence of at least one elevated blood pressure reading (>120/80) during this emergency department visit, lab results, radiology results, the need for outpatient follow up, for definitive care, to return to the emergency department if symptoms worsen or persist or if there are any questions or concerns that arise at home. 06/23 13:39 Order name: SARS RAPID; Complete Time: 15:47 sb4 06/23 13:39 Order name: CBC with Diff; Complete Time: 16:16 sb4 06/23 13:39 Order name: BMP; Complete Time: 16:20 sb4 06/23 13:39 Order name: [place] Screen Profile; Complete Time: 16:34 sb4 06/23 13:48 Order name: Troponin HS; Complete Time: 16:39 sb4 06/23 13:39 Order name: Chest Pa And Lat (2 Views) XRAY; Complete Time: 14:35 sb4 06/23 13:39 Order name: Neck Soft Tissue XRAY; Complete Time: 14:37 sb4 06/23 13:39 Order name: IV Start; Complete Time: 15:46 sb4 EC:48 Rate is 88 beats/min. Rhythm is irregular, Sinus Rhythm with Occasional PVCs. CA sb4 interval is normal at 118 msec. QRS interval is normal at 82 msec. QT interval is normal at [address] changes noted. Interpreted by me. Reviewed by me. Administered Medications: 16:19 Drug: NS 0.9% IV 1000 ml IV at 1 bolus Per protocol; to be given as a bolus over 60 jb4 minutes Route: IV; Rate: 1 bolus; Site: right antecubital; 17:05 Follow up: IV Status: Completed infusion; IV Intake: 1000ml jb4 16:19 Drug: Ketorolac IVP 15 mg IVP once Route: IVP; Site: right antecubital; jb4 17:06 Follow up: Response: No adverse reaction; Marked relief of symptoms jb4 16:19 Drug: Ondansetron IVP 4 mg IVP once; over 2 minutes Route: IVP; Site: right antecubital;jb4 17:06 Follow up: Response: No adverse reaction; Marked relief of symptoms jb4 Disposition Summary: 06/23/24 16:51 Discharge Ordered Notes: Location: Home sb4 Problem: an ongoing problem sb4 Symptoms: are unchanged sb4 Condition: Stable sb4 Diagnosis - Viral infection, unspecified sb4 Followup: sb4 - With: Private Physician - When: 1 week - Reason: Recheck today's complaints, Continuance of care, Re-evaluation by your physician Discharge Instructions: - Discharge Summary Sheet sb4 - Viral Illness, Adult sb4 Forms: - Work release form sb4 - Medication Reconciliation Form sb4 - Patient Portal Instructions sb4 - Leadership Thank You Letter sb4 Signatures: Dispatcher [employer] Isrrael Montesinos RN RN jb4 Mary Lau RN RN ap3 Yany Frye PA-C PA-C sb4 Corrections: (The following items were deleted from the chart) 13:40 13:40 SARS-COV-2 Antigen Rapid+I.LAB.BRZ ordered. EDMS EDMS 13:40 13:40 CBC+H.LAB.BRZ ordered. EDMS EDMS 13:40 13:40 BASIC METABOLIC PANEL+C.LAB.BRZ ordered. EDMS EDMS 13:40 13:40 MONO SCREEN PROFILE+I.LAB.BRZ ordered. EDMS EDMS :40 13:40 Neck Soft Tissue+RAD.RAD.BRZ ordered. EDMS EDMS 13:48 13:48 Troponin High Sensitivity+C.LAB.BRZ ordered. EDMS EDMS
[2024-06-23 17:27] VITALS: BP 137/75; TEMP 98.8; O2SAT 100
== END 2024-06-23 17:06 | disposition home or self-care (01) ==
LOC: ER 12:44
DX: J06.9 Acute upper respiratory infection, unspecified (principal); Z11.52 Encounter for screening for COVID-19
CPT/HCPCS: 36415; 70360; 71046; 80048; 84484; 85025; 86308; 87426; 93005; 96361; 96374; 96375; 99284; J2405; J7030

== ENCOUNTER 2024-10-01 08:41 | Emergency (ER) | payer OTHER ==
--- OUTSIDE RECORDS SUMMARY | 2024-10-01 08:47 | XMS REPORT | Continuity of Care Document ---
Author Name Unknown Address [address] [place] [address] [facility] Address [address] [place] [address] Care Team Providers Care Haunted History Tour Guide Name Role Phone Balbina Linda MENCHACA Primary Care Physician [phone] RADIOLOGY Attending Clinician Unavailable Sparkle Pierre Attending Clinician Unav Ailyn Landaverde MD Attending Clinician [phone] Gary Warner Attending Clinician [phone] LAMAR SOUZA Attending Clinician Unavailab LAMAR Schaefer Attending Clinician Unavailab SHELBI Steel Attending Clinician Unavailable SHELBI HERNANDEZ Attending Clinician Unavailable LUZ MARIA IVLLARREAL Attending Clinician Unavailable GARY TAVERAS Attending Clinician Unavailable RAMAN MAN Attending Clinician Unavailable RAMAN MAN Attending Clinician Unavailable Saulo Taveras MD Attending Clinician [phone] Doctor Unassigned, [place] Attending Clinician U Raman Valderrama MD Attending Clinician [phone] SHERLEY DIEZ Attending Clinician Unavailable Sherley Diez MD Attending Clinician [phone] JACQUIE NORIEGA Attending Clinician Unavail able JOSÉ HAQUE Attending Clinician Unavailable Doctor Unassigned, [place] Attending Clinician U navailable Akinsipe WHCNP, Jacquie Landaverde Attending Clinician + Geraldine Galvan MD Attending Clinician [phone] Radiology Attending Clinician Unavailable GERALDINE GALVAN Attending Clinician Unavailable Prisca Dinh RN Attending Clinician [phone] Chavo Joes MD Attending Clinician [phone] Rojelio De La Rosa MD Attending Clinician [phone] Sparkle Pierre Admitting Clinician Unav LAMAR Alfaro Admitting Clinician Unavailab GARY Ramsey Admitting Clinician Unavailable SHERLEY DIEZ Admitting Clinician Unavailable Rojelio De La Rosa MD Admitting Clinician [phone] Payers Payer Name Policy Type Policy Number Effective Date Expirati on Date Source [facility] [id number] 2021 00:00:00 [facility] EPO [id number] 2024 00:00:00 Problems Condition Name Condition Details Condition Category Status Onset Date Resolution Date Last Treatment Date Treating Clinician Comments Source History of gynecologi yana disorder History of Gynecologi yana Disorder Problem Active 8 00:00: 00 [facility] Uterine adenomyosi s Uterine Adenomyosi s Problem Active 8 00:00: 00 [facility] Adhesion of pelvis Adhesion of Pelvis Problem Active 8 00:00: 00 [facility] Pain in female genitalia on intercours e Pain in Female Genitalia on Intercours e Problem Active 08-27 00:00: 00 [facility] Menorrhagi a Menorrhagi a Problem Active 08-27 00:00: 00 [facility] Abnormal uterine bleeding Abnormal Uterine Bleeding Problem Active 08-27 00:00: 00 [facility] Polycystic ovary syndrome Polycystic Ovary Syndrome Problem Active 08-27 00:00: 00 [facility] Smoker Smoker Problem Active 08-27 00:00: 00 [facility] Pain pelvic Pain pelvic Disease Active 6-16 00:00: 00 [facility] Menorrhagi a Menorrhagi a Disease Active 616 00:00: 00 [facility] Elevated blood pressure reading without diagnosis of hypertensi on Elevated blood pressure reading without diagnosis of hypertensi on Disease Active 329 00:00: 00 [facility] Pain in lower limb Pain in Lower Limb Problem Active 06-14 00:00: 00 [facility] Candidiasi s of vagina Candidiasi s of Vagina Problem Active 06-14 00:00: 00 [facility] Musculoske letal symptom Musculoske letal Symptom Problem Active 413 00:00: 00 [facility] Umbilical hernia Umbilical Hernia Problem Active 413 00:00: 00 [facility] Dyspareuni a Dyspareuni a Problem Active 317 00:00: 00 [facility] Polymenorr hea Polymenorr hea Problem Active 314 00:00: 00 [facility] Excessive menstruati on with irregular cycle Excessive Menstruati on with Irregular Cycle Problem Active 314 00:00: 00 [facility] Blood in urine Blood in Urine Problem Active 2014-02 00:00: 00 [facility] Cyst of ovary Cyst of Ovary Problem Active 2014-02 00:00: 00 [facility] Female pelvic inflammato ry disease Female Pelvic Inflammato ry Disease Problem Active 2014-02 00:00: 00 [facility] Female genital organ symptoms Female Genital Organ Symptoms Problem Active 2014-02 00:00: 00 [facility] Irregular periods Irregular Periods Problem Active 2014-02 00:00: 00 [facility] Pelvic and perineal pain Pelvic and Perineal Pain Problem Active 2014-02 00:00: 00 [facility] Urinary tract infectious disease Urinary Tract Infectious Disease Problem Active 2014-02 00:00: 00 [facility] History of anxiety History of anxiety Disease Active 10-21 00:00: 00 [facility] Tobacco use disorder Tobacco use disorder Disease Recurre nce 10-21 00:00: 00 [facility] General counseling and advice for contracept jamison management General counseling and advice for contracept jamison management Disease Recurre nce 11-01 00:00: 00 Overview: Formattin g of this note might be different from the original. ICD10 Diagnosis [facility] Utility [facility] Generalize d anxiety disorder Generalize d anxiety disorder Disease Recurre nce 11-01 00:00: 00 [facility] Morbid obesity Morbid obesity Disease Recurre nce 11-01 00:00: 00 [facility] Failure of outpatient treatment Failure of outpatient treatment Disease Resolve d -20 00:00: 00 2024-07-15 00:00:00 2024-07-15 15:24:06 [facility] Missed menses Missed menses Disease Resolve d 10-21 00:00: 00 2024-04-30 00:00:00 2024-04-30 14:56:34 [facility] Cellulitis of submental space Cellulitis of submental space Disease Resolve d 08-25 00:00: 00 2024-04-28 00:00:00 2024-04-28 17:01:18 [facility] Multiparit y Multiparit y Disease Resolve d 10-21 00:00: 00 2013-10-21 00:00:00 2013-10-21 21:54:10 [facility] Anemia Anemia Disease Resolve d 11-01 00:00: 00 2013-10-21 00:00:00 2021-08-21 00:26:42 [facility] Immune to rubella Immune to rubella Disease Resolve d 07-16 00:00: 00 2013-10-21 00:00:00 2013-10-21 21:52:43 [facility] Immune to varicella Immune to varicella Disease Resolve d 30 00:00: 00 2013-10-21 00:00:00 2013-10-21 21:52:45 [facility] Headache Headache Disease Resolve d 06-06 00:00: 00 2013-10-21 00:00:00 2021-08-21 00:24:19 [facility] Routine follow-up Routine follow-up Disease Resolve d 10-04 00:00: 00 2012-11-01 00:00:00 2012-11-01 14:53:21 [facility] delivery delivered delivery delivered Disease Resolve d 09-17 00:00: 00 2012-11-01 00:00:00 2021-08-21 00:25:57 [facility] Gestationa l hypertensi on Gestationa l hypertensi on Disease Resolve d 09-13 00:00: 00 2012-11-01 00:00:00 2012-11-01 14:53:17 [facility] Abdominal pain complicati ng Abdominal pain complicati ng Disease Resolve d 09-13 00:00: 00 2012-10-04 00:00:00 2012-10-04 13:52:49 [facility] Antepartum genitourin stephen tract infection Antepartum genitourin stephen tract infection Disease Resolve d 08-26 00:00: 00 2012-10-04 00:00:00 2021-08-21 00:25:36 [facility] Vaginal discharge in Vaginal discharge in Disease Resolve d 08-26 00:00: 00 2012-10-04 00:00:00 2012-10-04 09:09:57 [facility] Carpal tunnel syndrome Carpal tunnel syndrome Disease Resolve d 07-22 00:00: 00 2012-10-04 00:00:00 2012-10-04 13:52:51 [facility] Abnormal maternal glucose tolerance, antepartum Abnormal maternal glucose tolerance, antepartum Disease Resolve d 07-17 00:00: 00 2012-10-04 00:00:00 2012-10-04 13:52:53 [facility] Supervisio n of other normal Supervisio n of other normal Disease Resolve d 07-16 00:00: 00 2012-10-04 00:00:00 2021-08-21 00:25:00 [facility] Abdominal trauma Abdominal trauma Disease Resolve d 2013-0 6-11 00:00: 00 2012-10-04 00:00:00 2012-10-04 13:52:36 [facility] Rubella immune Rubella immune Disease Resolve d 07-04 00:00: 00 2012-10-04 00:00:00 2012-10-04 13:52:42 [facility] Nausea Nausea Disease Resolve d 07-04 00:00: 00 2012-10-04 00:00:00 2012-10-04 13:52:38 [facility] Pain in joint, lower leg Pain in joint, lower leg Disease Resolve d 08-29 00:00: 00 2012-10-04 00:00:00 2012-10-04 13:52:45 [facility] UTI (urinary tract infection) UTI (urinary tract infection) Disease Resolve d 06-06 00:00: 00 2012-07-04 00:00:00 2012-07-04 09:51:20 [facility] Epigastric pain Epigastric pain Disease Resolve d 10-31 00:00: 00 2012-07-04 00:00:00 2012-07-04 09:51:12 [facility] Allergies, Adverse Reactions, Alerts Allergy Name Allergy Type Status Severity Reaction(s) Onset Date Inactive Date Treating Clinician Comments Source Statins- HMG-CoA Reductas e Inhibito rs Propensi ty to adverse reaction to drug Active 8-14 00:00: 00 Tha Hampton fenofibr ate (Not Checked) Propensi ty to adverse reaction to drug Active 09-03 00:00: 00 Tha Hampton ATORVAST ATIN DRUG INGREDI Active Hives 3-24 00:00: 00 [facility] Atorvast atin Drug Allergy Active Hives 3-24 00:00: 00 [facility] Morphine and Related - CLASS Propensi ty to adverse reaction to drug Active 2021-02 0- 00:00: 00 Tha Hampton MORPHINE DRUG INGREDI Active Low Anxiety 08-24 00:00: 00 [facility] Morphine Propensi ty to adverse reaction s Active Nausea and/or Vomiting 2021-0 7-20 00:00: 00 [facility] Morphine Propensi ty to adverse reaction to drug Inactiv e 1-15 00:00: 00 Tha Hampton STATINS- HMG-COA REDUCTAS E INHIBITO RS Allergy to substanc e Active Moderate severity Rash [facility] Social History Social Habit Start Date Stop Date Quantity Comments Source [facility] Not [facility] Alcoholic beverage intake 2024-08-15 00:00:00 2024-08-15 00:00:00 Current drinker of alcohol (finding) [facility] History of Social function 2024-04-28 00:00:00 2024-04-28 00:00:00 [facility] Alcohol Comment 2024-04-28 00:00:00 2024-04-28 00:00:[address] [facility] Cigarettes smoked current (pack per day) - Reported 2024-04-28 00:00:00 2024-04-28 00:00:00 [facility] Cigarette pack-years 2024-04-28 00:00:00 2024-04-28 00:00:00 [facility] Tobacco use and exposure 2024-04-28 00:00:00 2024-04-28 00:00:00 Smokeless tobacco non-user [facility] Tobacco Comment 2024-04-28 00:00:00 2024-04-28 00:00:[address] [facility] Alcohol intake 2023-01-11 00:00:00 2023-01-11 00:00:00 .24 /d [facility] Exposure to SARS-CoV-2 (event) 2021-04-03 00:00:00 2021-05-03 09:51:[address] [facility] Education 2020-08-24 00:00:00 2020-08-24 00:00:[address] [facility] History of tobacco use 2012-02-02 00:00:00 2012-02-02 00:00:[address] [facility] Sex assigned at 1990 00:00:00 1990 00:00:00 [facility] Smoking Status Start Date Stop Date Source [facility] Smokes tobacco daily 2021-05-03 00:00:00 [facility] Medications Ordered Medication Name Filled Medication Name Start Date Stop Date Current Medication? Ordering Clinician Indication Dosage Frequency Signature (SIG) Comments Components Source Bromfed DM 2 mg-30 mg-10 mg/5 mL oral syrup 8-14 00:00: 00 Yes 10mg/5 mL Tha Hampton prednisone 20 mg tablet 08-30 00:00: 00 Yes mg Tha Hampton meloxicam 7.5 mg tablet 08-30 00:00: 00 Yes mg Tha Hampton ketorolac (TORADOL) injection 30 mg 08-15 22:00: 00 08-15 21:37 :00 No 30mg 30 mg, Intramuscu lar, ONCE, 1 dose, On Sun08/15/24 at 1700, Routine [facility] medroxyPROG ESTERone (PROVERA) 10 mg tablet 08-15 00:00: 00 08-23 04:59 :00 Yes [id number] 10mg Take 1 tablet by mouth in the morning and 1 tablet in the evening. Do all this for 7 days. [facility] ibuprofen (MOTRIN) tablet 800 mg 08-04 20:00: 00 08-04 19:38 :00 No [id number] 800mg 800 mg, Oral, ONCE, 1 dose, On Sun08/04/24 at 1500, Routine [facility] medroxyPROG ESTERone (DEPO-PROVE RA) injection 150 mg 07-21 20:15: 00 07-21 19:45 :00 No [id number] 150mg 150 mg, Intramuscu lar, ONCE, 1 dose, On Sun07/21/24 at 1515, Routine [facility] Depo-Die Repairer Forging a 150 mg/mL intramuscul ar suspension Inject 1 mL every 3 months by intramuscul ar route. Depo-Die Repairer Forging a 150 mg/mL intramuscul ar suspension Inject 1 mL every 3 months by intramuscul ar route. 07-21 00:00: 00 No 1mL Depo-Prove ra 150 mg/mL intramuscu lar suspension Inject 1 mL every 3 months by intramuscu lar route. [facility] acetaminoph en (TYLENOL) tablet 975 mg 2022-02 21:00: 00 01-11 19:56 :00 No 975mg 975 mg, Oral, ONCE NOW, 1 dose, On Glory 01/11/23 at 1500, [facility] ondansetron (ZOFRAN (PF)) injection 4 mg 2022-02 20:00: 00 01-11 19:56 :00 No 4mg 4 mg, Slow IV Push, ONCE, 1 dose, On Glory 01/11/23 at 1400, [facility] iopamidol (ISOVUE 370-500 mL) injection 80 mL 2022-02 20:00: 00 01-11 20:00 :00 No [id number] 80mL 80 mL, Intravenou s, ONCE, 1 dose, On Glory 01/11/23 at 1400, Routine [facility] ketorolac (TORADOL) injection 30 mg 2022-02 19:15: 00 01-11 18:46 :00 No 30mg 30 mg, Slow IV Push, ONCE NOW, 1 dose, On Glory 01/11/23 at 1315, [facility] ampicillin- sulbactam (UNASYN) 3 g in NaCl 0.9% (NS) 100 mL MINI-BAG 2022-02 18:30: 00 01-11 19:52 :00 No 3g 3 g, IV Piggyback, ONCE, 1 dose, On Glory 01/11/23 at 1230, Administer over 30 Minutes, 100 mL
Reas on for Anti-Infec tive: Documented Infection< br>Documen tali Infection Site: HEENT
D uration of Therapy: Other (see Comments) [facility] dexamethaso ne sod phos PF injection 10 mg 2022-02 18:30: 00 01-11 18:47 :00 No 10mg 10 mg, Slow IV Push, ONCE, 1 dose, On Glory 01/11/23 at 1230, 1 mL [facility] diclofenac 75 mg EC tablet 2022-02 00:00: 00 07-15 00:00 :00 No [id number] 75mg Take 1 tablet by mouth in the morning and 1 tablet in the evening. Take with meals. [facility] acetaminoph en (TYLENOL ARTHRITIS PAIN) 650 mg CR tablet 2022-02 00:00: 00 04-30 00:00 :00 No [id number] 650mg Take 1 tablet by mouth every 8 (eight) hours as needed for Pain. [facility] ondansetron 4 mg disintegrat ing tablet 2022-02 00:00: 00 04-28 00:00 :00 No [id number] 4mg Take 1 tablet by mouth every 8 (eight) hours as needed for Nausea and Vomiting (N/V). [facility] amoxicillin -clavulanat e 875-125 mg per tablet 2022-02 00:00: 00 01-22 05:59 :00 No [id number] 1{tbl} Take 1 tablet by mouth every 12 (twelve) hours for 10 days. [facility] TAKE ONE (1) TABLET(S) BY MOUTH TWICE A DAY FOR 7 DAYS. 07-27 00:00: 00 Yes Tha Hampton TAKE ONE (1) TABLET(S) BY MOUTH TWICE A DAY NEEDED. 07-04 00:00: 00 Yes Tha Hampton TAKE TWO (2) TABLETS (500 MG) BY MOUTH ONCE DAILY FOR 1 DAY THEN 1 TABLET (250 MG) BY ORAL ROUTE ONCE DAILY FOR 4 DAYS. 03-31 00:00: 00 Yes Tha Hampton TAKE 10 ML(S) BY MOUTH EVERY 4 HOURS NEEDED. 03-30 00:00: 00 Yes Tha Hampton TAKE ONE (1) TABLET(S) BY MOUTH EVERY TWELVE HOURS FOR 10 DAYS. 2021-02 00:00: 00 Yes Tha Flaherty Memo Flagyl 500 mg tablet 10-07 00:00: 00 Yes 1mg Tha Hampton Dose Unknown 10-07 00:00: 00 Yes [facility]a Hampton dicyclomine 20 mg tablet 09-25 00:00: 00 05-03 00:00 :00 No [id number] 20mg Take 1 tablet by mouth every 6 (six) hours as needed for Abdominal pain. [facility] ondansetron (ZOFRAN) 4 mg tablet 09-25 00:00: 00 05-03 00:00 :00 No [id number] 4mg Take 1 tablet by mouth every 8 (eight) hours as needed for Nausea and Vomiting (N/V). [facility] omeprazole 20 mg capsule 08-27 00:00: 00 05-03 00:00 :00 No [id number] 20mg Take 1 capsule by mouth daily. [facility] sulfamethox azole-trime thoprim 800-160 mg per tablet 08-26 00:00: 00 05-03 00:00 :00 No [id number] 1{tbl} Take 1 tablet by mouth 2 (two) times daily. [facility] HYDROcodone -acetaminop hen 5-325 mg tablet 08-26 00:00: 00 05-03 00:00 :00 No [id number] 1{tbl} Take 1 tablet by mouth every 6 (six) hours as needed for Pain (scale 4-6) or Pain (scale 7-10). Indication s: acute pain [facility] Diflucan 150 mg tablet 05-17 00:00: 00 Yes 1mg Tha Hampton cephalexin 500 mg tablet 05-14 00:00: 00 Yes 1mg Tha Hampton metformin 500 mg tablet 05-14 00:00: 00 Yes 1mg Tha Hampton Dose Unknown 02-19 00:00: 00 Yes Tha Hampton Effexor XR 37.5 mg capsule,ext ended release 02-19 00:00: 00 Yes 1mg Tha Hampton acetaminoph en 300 mg-codeine 30 mg tablet PLEASE SEE ATTACHED FOR DETAILED DIRECTIONS acetaminoph en 300 mg-codeine 30 mg tablet PLEASE SEE ATTACHED FOR DETAILED DIRECTIONS No acetaminop hen 300 mg-codeine 30 mg tablet PLEASE SEE ATTACHED FOR DETAILED DIRECTIONS [facility] meloxicam 7.5 mg tablet TAKE 1 TABLET BY ORAL ROUTE DAILY meloxicam 7.5 mg tablet TAKE 1 TABLET BY ORAL ROUTE DAILY No meloxicam 7.5 mg tablet TAKE 1 TABLET BY ORAL ROUTE DAILY [facility] prednisone 20 mg tablet TAKE 1 TABLET BY ORAL ROUTE ONCE DAILY FOR 5 DAYS prednisone 20 mg tablet TAKE 1 TABLET BY ORAL ROUTE ONCE DAILY FOR 5 DAYS No prednisone 20 mg tablet TAKE 1 TABLET BY ORAL ROUTE ONCE DAILY FOR 5 DAYS [facility] Immunizations Ordered Immunization Name Filled Immunization Name Date Status Comments Source Td (adult) preservative Td (adult) preservative 2024-09-03 00:00:00 Completed Tha Hampton TDAP 2012-09-25 00:00:[address] [facility] TDAP 2012-09-25 00:00:[address] [facility] Meningococcal Vaccine 2011-01-25 00:00:[address] [facility] Meningococcal Vaccine 2011-01-25 00:00:[address] [facility] Rubella 2010-04-01 00:00:[address] [facility] Rubella 2010-04-01 00:00:[address] [facility] Td 2006-02-05 00:00:[address] [facility] TD, NOS 2006-02-05 00:00:00 Completed Varicella (varivax)(chicken pox) 1996-02-06 00:00:[address] [facility] Varicella (varivax)(chicken pox) 1996-02-06 00:00:00 Completed Meningococcal Vaccine Unknown Completed [facility] Rubella Unknown Completed [facility] TD, NOS Unknown Completed [facility] Varicella (varivax)(chicken pox) Unknown Completed [facility] TDAP Unknown Completed [facility] Vital Signs Vital Name Observation Time Observation Value Comments S ource Body Weight 2024-09-10 00:00:00 252 [lb_av] [facility] Height 2024-09-10 00:00:00 63 [in_i] [facility] BP Diastolic 2024-09-10 00:00:00 76 mm[Hg] [facility] BMI (Body Mass Index) 2024-09-10 00:00:00 44.6 kg/m2 [facility] BP Systolic 2024-09-10 00:00:00 121 mm[Hg] [facility] BP Diastolic 2024-08-27 00:00:00 82 mm[Hg] [facility] BP Systolic 2024-08-27 00:00:00 142 mm[Hg] [facility] BMI (Body Mass Index) 2024-08-27 00:00:00 45.2 kg/m2 [facility] Body Weight 2024-08-27 00:00:00 255 [lb_av] [facility] Height 2024-08-27 00:00:00 63 [in_i] [facility] Systolic blood pressure 2024-08-15 23:08:00 138 mm[Hg] [facility] Diastolic blood pressure 2024-08-15 23:08:00 92 mm[Hg] [facility] Heart rate 2024-08-15 23:08:00 78 /min [facility] Body temperature 2024-08-15 23:08:[address] [facility] Respiratory rate 2024-08-15 23:08:00 14 /min [facility] Oxygen saturation in Arterial blood by Pulse oximetry 2024-08-15 23:08:00 98 /min [facility] Body height 2024-08-15 19:55:00 160 cm [facility] Body weight 2024-08-15 19:55:00 116.121 kg [facility] BMI 2024-08-15 19:55:00 45.35 kg/m2 [facility] Systolic blood pressure 2024-08-04 18:03:00 132 mm[Hg] [facility] Diastolic blood pressure 2024-08-04 18:03:00 77 mm[Hg] [facility] Heart rate 2024-08-04 18:03:00 91 /min [facility] Body temperature 2024-08-04 18:03:[address] [facility] Respiratory rate 2024-08-04 18:03:00 19 /min [facility] Body height 2024-08-04 18:03:00 160 cm [facility] Body weight 2024-08-04 18:03:00 116.529 kg [facility] BMI 2024-08-04 18:03:00 45.51 kg/m2 [facility] Systolic blood pressure 2024-07-21 18:01:00 132 mm[Hg] [facility] Diastolic blood pressure 2024-07-21 18:01:00 84 mm[Hg] [facility] Heart rate 2024-07-21 17:57:00 86 /min [facility] Body temperature 2024-07-21 17:57:[address] [facility] Body height 2024-07-21 17:57:00 160 cm [facility] Body weight 2024-07-21 17:57:00 117.436 kg [facility] BMI 2024-07-21 17:57:00 45.86 kg/m2 [facility] Oxygen saturation in Arterial blood by Pulse oximetry 2024-07-21 17:57:00 100 /min [facility] Systolic blood pressure 2024-07-14 15:07:00 134 mm[Hg] [facility] Diastolic blood pressure 2024-07-14 15:07:00 82 mm[Hg] [facility] Heart rate 2024-07-14 14:54:00 73 /min [facility] Body temperature 2024-07-14 14:54:[address] [facility] Respiratory rate 2024-07-14 14:54:00 17 /min [facility] Body weight 2024-07-14 14:54:00 116.03 kg [facility] BMI 2024-07-14 14:54:00 46.79 kg/m2 [facility] Systolic blood pressure 2024-04-28 20:04:00 123 mm[Hg] [facility] Diastolic blood pressure 2024-04-28 20:04:00 67 mm[Hg] [facility] Heart rate 2024-04-28 20:04:00 76 /min [facility] Body temperature 2024-04-28 20:04:[address] [facility] Respiratory rate 2024-04-28 20:04:00 18 /min [facility] Body height 2024-04-28 20:04:00 157.5 cm [facility] weight 2024-04-28 20:04:00 115.44 kg [facility] BMI 2024-04-28 20:04:00 46.55 kg/m2 [facility] Systolic blood pressure 2023-01-11 20:00:00 144 mm[Hg] [facility] Diastolic blood pressure 2023-01-11 20:00:00 100 mm[Hg] [facility] Heart rate 2023-01-11 20:00:00 74 /min [facility] Respiratory rate 2023-01-11 20:00:00 16 /min [facility] Oxygen saturation in Arterial blood by Pulse oximetry 2023-01-11 20:00:00 97 /min [facility] Body temperature 2023-01-11 18:04:[address] [facility] Body height 2023-01-11 18:04:00 157.5 cm [facility] [facility] Body weight 2023-01-11 18:04:00 117.935 kg [facility] BMI 2023-01-11 18:04:00 47.55 kg/m2 [facility] Systolic blood pressure 2021-05-03 14:52:00 144 mm[Hg] [facility] Diastolic blood pressure 2021-05-03 14:52:00 98 mm[Hg] [facility] Heart rate 2021-05-03 14:52:00 75 /[facility] temperature 2021-05-03 14:51:[address] [facility] Respiratory rate 2021-05-03 14:51:00 20 /min [facility] Body height 2021-05-03 14:51:00 157.5 cm [facility] Body weight 2021-05-03 14:51:00 116.376 kg [facility] BMI 2021-05-03 14:51:00 46.93 kg/m2 [facility] Systolic blood pressure 2021-05-03 14:52:00 144 mm[Hg] [place] [facility] Diastolic blood pressure 2021-05-03 14:52:00 98 mm[Hg] [facility] Heart rate 2021-05-03 14:52:00 75 /min Unive [facility] Body temperature 2021-05-03 14:51:[address] [facility] Respiratory rate 2021-05-03 14:51:00 20 /min [facility] Body height 2021-05-03 14:51:00 157.5 cm [facility] Body weight 2021-05-03 14:51:00 116.376 kg [facility] BMI 2021-05-03 14:51:00 46.93 kg/m2 [facility] Height Measured 2024-09-03 13:49:00 62.00 inches [facility]a [facility] Body Temperature 2024-09-03 13:49:00 98.10 degrees [facility]a [facility] Heart Rate 2024-09-03 13:49:00 46.00 /min Nelsy en F Memo Respiratory Rate 2024-09-03 13:49:00 16.00 /min Tha [facility] BP Systolic 2024-09-03 13:49:00 140 mm[Hg] Step hen F Memo BP Diastolic 2024-09-03 13:49:00 73 mm[Hg] Diomedes phen [facility] Weight Measured 2024-09-03 13:49:00 252.80 pounds Tha F [facility] BP Systolic 2021-12-02 19:51:00 Step hen F Memo BP Diastolic 2021-12-02 19:51:00 Diomedes phen F [facility] Weight Measured 2021-12-02 19:51:00 259.20 pounds Tha F [facility] Height Measured 2021-12-02 19:51:00 Tha F Memo Body Temperature 2021-12-02 19:51:00 Tha F Memo Heart Rate 2021-12-02 19:51:00 Nelsy en F Memo Respiratory Rate 2021-12-02 19:51:00 Tha F Memo BP Systolic 2020-10-07 14:25:00 116 mm[Hg] Step hen F Memo BP Diastolic 2020-10-07 14:25:00 79 mm[Hg] Diomedes phen [facility] Weight Measured 2020-10-07 14:25:00 259.20 pounds Tha F [facility] Height Measured 2020-10-07 14:25:00 62.60 inches Tha F [facility] Body Temperature 2020-10-07 14:25:00 98.40 degrees Tha F [facility]o Heart Rate 2020-10-07 14:25:00 84.00 /min Nelsy en F Memo Respiratory Rate 2020-10-07 14:25:00 17.00 /min Tha F [facility]o BP Systolic 2020-05-14 11:00:00 126 mm[Hg] Step hen F Memo BP Diastolic 2020-05-14 11:00:00 83 mm[Hg] Diomedes phen F Memo Weight Measured 2020-05-14 11:00:00 257.40 pounds Tha F [facility] Height Measured 2020-05-14 11:00:00 62.60 inches Tha F [facility] Body Temperature 2020-05-14 11:00:00 98.10 degrees Tha F Memo Heart Rate 2020-05-14 11:00:00 73.00 /min Nelsy en F Memo Respiratory Rate 2020-05-14 11:00:00 17.00 /min Tha F Memo BP Systolic 2020-05-06 11:27:00 146 mm[Hg] Step hen F Memo BP Diastolic 2020-05-06 11:27:00 96 mm[Hg] Diomedes phen F Memo Weight Measured 2020-05-06 11:27:00 257.80 pounds Tha F Memo Height Measured 2020-05-06 11:27:00 62.60 inches Tha F [facility]o Body Temperature 2020-05-06 11:27:00 98.70 degrees Tha F Memo Heart Rate 2020-05-06 11:27:00 75.00 /min Nelsy en F Memo Respiratory Rate 2020-05-06 11:27:00 17.00 /min Tha F Memo BP Systolic 2020-02-20 11:10:00 130 mm[Hg] Step hen F Memo BP Diastolic 2020-02-20 11:10:00 84 mm[Hg] Diomedes phen F Memo Weight Measured 2020-02-20 11:10:00 257.00 pounds Tha Hampton Height Measured 2020-02-20 11:10:00 62.60 inches Tha Hampton Body Temperature 2020-02-20 11:10:00 98.50 degrees Tha Hampton Heart Rate 2020-02-20 11:10:00 88.00 /min Nelsy Hampton Respiratory Rate 2020-02-20 11:10:00 17.00 /min Tha Hampton Procedures Procedure Date / Time Performed Performing Clinician Source US PELVIC NONOBSTETRIC REAL-TIME IMAGE COMPLETE 2024-08-27 00:00:00 [facility] POCT TEST 2024-08-15 20:53:[address] [facility] POCT TEST 2024-08-04 18:04:[address] [facility] CANCER ANTIGEN-GI (CA 19-9) 2024-07-21 19:50:00 Harding, [facility] CARCINOEMBRYONIC ANTIGEN 2024-07-21 19:50:00 Harding, [facility] FREE T4 2024-07-21 19:50:00 Harding, [facility] TRIIODOTHYRONINE 2024-07-21 19:50:00 Harding, [facility] THYROID STIMULATING HORMONE 2024-07-21 19:50:00 Harding, [facility] CA-125 2024-07-21 19:50:00 Harding, [facility] CBC WITH DIFF 2024-07-21 19:50:00 Harding, [facility] INHIBIN-A (DIMER) 2024-07-21 19:50:00 Harding, [facility] POCT TEST 2024-07-21 18:05:[address] [facility] US PELVIS COMPLETE WITH TRANSVAGINAL 2024-07-18 20:55:[address] [facility] GALV ONLY - VAGINAL PATHOGENS BY NUCLEIC ACID TESTING 2024-04-28 21:50:[address] [facility] HIGH RISK HPV-THIN PREP 2024-04-28 21:50:[address] [facility] PAP SMEAR-LIQUID BASED-CP 2024-04-28 21:50:[address] [facility] CT SOFT TISSUE NECK W CONTRAST 2023-01-11 19:00:[address] [facility] COMP. METABOLIC PANEL (12530) 2023-01-11 18:45:[address] [facility] CBC WITH DIFF 2023-01-11 18:45:00 Sherley Diez [facility] POCT TEST 2023-01-11 18:39:[address] [facility] CONSENT/REFUSAL FOR DIAGNOSIS AND TREATMENT 2023-01-11 18:00:13 Doctor Unassigned, Braggs [facility] LAB ONLY PAP SMEAR-LIQUID BASED 2021-05-03 16:08:[address] [facility] PAP SMEAR-LIQUID BASED-CP 2021-05-03 16:08:[address] [facility] Hysteroscopy [facility] Encounters Start Date/Time End Date/Time Encounter Type Admission Type Attending Clinicians Care Facility Care Department Encounter ID Source 2020-12-06 17:05:57 Emergency [facility] [id number] [facility] 2024-09-28 12:30:00 2024-09-28 12:30:00 Outpatient Sparkle Irizarry [facility] LABO [id number] [facility] 2024-08-17 00:00:00 2024-09-20 18:31:24 Patient Secure Msg HardingAilyn whittington [facility] ([facility]) 1.2.840.114 350.1.13.10 4.2.7.2.686 [id number] [facility] 2024-09-18 00:00:00 2024-09-18 00:00:00 Outpatient Visit [facility] [id number] Tha Hampton 2024-09-10 00:00:00 2024-09-10 00:00:[address]: [address], [address], [place] [address] , Ph. [facility] [place] [facility]* [id number] [facility] 2024-09-05 00:00:00 2024-09-05 00:00:00 Outpatient Visit [facility] [id number] Tha Flaherty Karval 2024-09-03 13:41:36 2024-09-03 13:41:36 Outpatient SFA [facility] [id number] Tha Flaherty Karval 2024-09-03 00:00:00 2024-09-03 00:00:00 Outpatient Visit [facility] [id number] Tha Flaherty Karval 2024-08-27 00:00:00 2024-08-27 00:00:00 Kristy Miles, MANAGER PARTY: [address], [address], [place] [address] , Ph. [facility] [place] [facility]* [id number] [facility] 2024-07-21 00:00:00 2024-08-23 18:28:45 Patient Secure Gary Samayoa [facility] 1.2.840.114 350.1.13.10 4.2.7.2.686 [id number] [facility] 2024-08-15 14:58:00 2024-08-15 18:10:00 Emergency LAMAR LORA SANDRA [facility] ERT [id number] [facility] 2024-08-04 13:30:00 2024-08-04 14:23:13 Office Visit SHELBI EDDY YVETTE [facility] ([facility]) 1.2.840.114 350.1.13.10 4.2.7.2.686 [id number] [facility] 2024-07-21 13:30:00 2024-07-21 14:51:56 Office Visit R LUZ MARIA VILLARREAL [facility] ([facility]) 1.2.840.114 350.1.13.10 4.2.7.2.686 [id number] [facility] 2024-07-18 14:48:57 2024-07-18 23:59:00 Hospital Encounter R GARY TAVERAS [facility] 1.2.840.114 350.1.13.10 4.2.7.2.686 [id number] [facility] 2024-07-14 10:15:00 2024-07-14 10:42:07 Office Visit R Gary Taveras [facility] 1.2.840.114 350.1.13.10 4.2.7.2.686 [id number] [facility] 2024-04-28 00:00:00 2024-04-28 17:00:20 Letter (Out) Saulo Taveras [facility] 1.2.840.114 350.1.13.10 4.2.7.2.686 [id number] [facility] 2024-04-28 15:00:00 2024-04-28 16:56:47 Outpatient R GARY TAVERAS [facility] [id number] [facility] 2024-04-28 15:00:00 2024-04-28 16:56:47 Office Visit R GARY TAVERAS [facility] 1.2.840.114 350.1.13.10 4.2.7.2.686 [id number] [facility] 2024-02-15 00:00:00 2024-03-22 18:21:46 Patient Secure Msg Doctor Unassigned, Braggs Doctor Unassigned, Braggs [facility] 1.2.840.114 350.1.13.10 4.2.7.2.686 [id number] [facility] 2024-03-06 15:00:00 2024-03-06 15:00:00 Outpatient R RAMAN MAN DIVYA [facility] [id number] [facility] 2024-02-29 00:00:00 2024-02-29 16:42:58 Telephone Raman Man [facility] ([facility]) 1.2.840.114 350.1.13.10 4.2.7.2.686 [id number] [facility] 2024-02-28 00:00:00 2024-02-28 17:24:06 Telephone FamiliaRaman [facility] ([facility]) 1.2.840.114 350.1.13.10 4.2.7.2.686 [id number] [facility] 2024-02-21 00:00:00 2024-02-21 17:23:53 Telephone FamiliaRaman [facility] ([facility]) 1.2.840.114 350.1.13.10 4.2.7.2.686 [id number] [facility] 2023-01-11 12:05:00 2023-01-11 14:34:00 Emergency X SHERLEY DIEZ [facility] ERT [id number] [facility] 2023-01-11 12:05:00 2023-01-11 14:34:00 Emergency Sherley Diez [facility] 1.2.840.114 350.1.13.10 4.2.7.2.686 [id number] [facility] 2023-01-01 09:15:00 2023-01-01 09:15:00 Outpatient JACQUIE WU [facility] [id number] [facility] 2021-12-03 12:38:34 2021-12-03 12:38:34 Outpatient PRASANNA [facility] [id number] Tha Hampton 2021-07-05 13:00:00 2021-07-05 13:00:00 Outpatient JOSÉ PURIVS [facility] [id number] [facility] 2021-06-03 13:30:00 2021-06-03 13:30:00 Outpatient JOSÉ PURVIS [facility] [id number] [facility] 2021-05-23 00:00:00 2021-05-23 00:00:00 Orders Only Doctor Unassigned, Braggs [facility] 1..840.114 350.1.13.10 4.2.7.2.686 [id number] [facility] 2021-05-19 00:00:00 2021-05-19 00:00:00 Telephone Jacquie Noriega [facility] 1..840.114 350.1.13.10 4.2.7.2.686 [id number] [facility] 2021-05-03 09:30:00 2021-05-03 10:51:04 Outpatient JACQUIE WU [facility] [id number] [facility] 2021-05-03 09:30:00 2021-05-03 10:51:04 Office Visit Jacquie Noriega [facility] 1..840.114 350.1.13.10 4.2.7.2.686 [id number] [facility] 2021-05-03 09:30:00 2021-05-03 10:51:04 Outpatient R JACQUIE NORIEGA [facility] [id number] [facility] 2021-05-03 09:30:00 2021-05-03 10:51:04 Outpatient R JACQUIE NORIEGA [facility] [id number] [facility] 2021-05-03 09:30:00 2021-05-03 10:51:04 Office Visit Jacquie Noriega [facility] 1.2.840.114 350.1.13.10 4.2.7.2.686 [id number] [facility] 2021-05-03 00:00:00 2021-05-03 00:00:00 Orders Only Doctor Unassigned, Braggs [facility] 1.2.840.114 350.1.13.10 4.2.7.2.686 [id number] [facility] 2021-05-03 00:00:00 2021-05-03 00:00:00 Telephone Jacquie Noriega [facility] 1.2.840.114 350.1.13.10 4.2.7.2.686 [id number] [facility] 2021-05-03 00:00:00 2021-05-03 00:00:00 Telephone Jacquie Noriega [facility] 1.2.840.114 350.1.13.10 4.2.7.2.686 [id number] [facility] 2020-09-24 23:09:00 2020-09-25 04:02:00 Emergency Geraldine Galvan [facility] 1.2.840.114 350.1.13.10 4.2.7.2.686 [id number] [facility] 2020-09-24 23:09:00 2020-09-25 04:02:00 Emergency Geraldine Galvan [facility] 1.2.840.114 350.1.13.10 4.2.7.2.686 [id number] 2020-09-02 15:30:00 2020-09-02 23:59:00 Hospital Encounter Radiology [facility] 1.2.840.114 350.1.13.10 4.2.7.2.686 [id number] [facility] 2020-09-02 15:30:00 2020-09-02 23:59:00 Hospital Encounter Radiology [facility] 1.2.840.114 350.1.13.10 4.2.7.2.686 [id number] 2020-09-02 00:00:00 2020-09-02 00:00:00 Outpatient R RADIOLOGY [facility] [id number] [facility] 2020-08-27 21:50:00 2020-08-27 23:10:00 Emergency Geraldine Galvan [facility] 1.2.840.114 350.1.13.10 4.2.7.2.686 [id number] [facility] 2020-08-27 21:50:00 2020-08-27 23:10:00 Emergency Geraldine Galvan [facility] 1.2.840.114 350.1.13.10 4.2.7.2.686 [id number] 2020-08-27 21:50:00 2020-08-27 21:50:00 Emergency X GERALDINE GALVAN [facility] ERT [id number] [facility] 2020-08-27 00:00:00 2020-08-27 00:00:00 Transition of Care Prisca Dinh 1.2.840.114 350.1.13.10 4.2.7.2.686 [id number] 2020-08-27 00:00:00 2020-08-27 00:00:00 Transition of Care Prisca Dinh 1.2.840.114 350.1.13.10 4.2.7.2.686 [id number] [facility] 2020-08-24 14:12:00 2020-08-26 13:37:00 [facility] 1.2.840.114 350.1.13.10 4.2.7.2.686 [id number] 2020-08-24 14:12:00 2020-08-26 13:37:00 Hospital Encounter Chavo Jose [facility] 1.2.840.114 350.1.13.10 4.2.7.2.686 [id number] [facility] 2020-08-24 13:52:00 2020-08-24 13:52:00 Emergency X [facility] ERT [id number] [facility] 2020-08-24 00:00:00 2020-08-24 00:00:00 Orders Only Doctor Unassigned, Braggs [facility] 1.2.840.114 350.1.13.10 4.2.7.2.686 [id number] 2020-08-24 00:00:00 2020-08-24 00:00:00 Orders Only Doctor Unassigned, Braggs [facility] 1.2.840.114 350.1.13.10 4.2.7.2.686 [id number] [facility] Results Test Description Test Time Test Comments Results Result Co mments Source CHLAMYDIA/N. GONORRHOEAE RNA, [id number] 00:00:00* Test Item Value Reference Range Interpretation Comme nts CHLAMYDIA TRACHOMATIS RNA, T MA, UROGENITAL (test code = 56107-3) NOT DETECTED NEISSERIA GONORRHOEAE RNA, T MA, UROGENITAL (test code = 86779-8) NOT DETECTED Tha HamptonHIV 1/2 ANTIGEN/ANTIBODY,FOURTH GENERATION [id number] 00:00:00* Test Item Value Reference Range Interpretation Comme rajat HIV AG/AB, 4TH GEN (test cod e = 39692-7) NON-REACTIVE Tha Flaherty AustinHEPATITIS PANEL, ACUTE W/REFLEX TO [id number] 00:00:00* Test Item Value Reference Range Interpretation Comme nts HEPATITIS A IGM (test code = 99415-7) NON-REACTIVE HEPATITIS B SURFACE ANTIGEN (test code = 5196-1) NON-REACTIVE CONFIRMATION (test code = 7905-3) DNR HEPATITIS B CORE ANTIBODY (I GM) (test code = 20854-3) NON-REACTIVE HEPATITIS C ANTIBODY (test c ode = 33406-9) NON-REACTIVE Tha HamptonCOMPREHENSIVE METABOLIC [id number] 00:00:00* Test Item Value Reference Range Interpretation Comme nts GLUCOSE (test code = 2345-7) 84 mg/dL UREA NITROGEN (BUN) (test code = 3094-0) 13 mg/dL CREATININE (test code = 2160-0) 0.81 mg/dL EGFR (test code = 66359-2) 99 mL/min/1.73m2 BUN/CREATININE RATIO (test code = 3097-3) SEE NOTE: (calc) SODIUM (test code = 2951-2) 139 mmol/L POTASSIUM (test code = 2823-3) 4.0 mmol/L CHLORIDE (test code = 2075-0) 106 mmol/L CARBON DIOXIDE (test code = 2027-9) 25 mmol/L CALCIUM (test code = 47810-9) 9.1 mg/dL PROTEIN, TOTAL (test code = 2885-2) 6.7 g/dL ALBUMIN (test code = 1751-7) 4.3 g/dL GLOBULIN (test code = 63364-2) 2.4 g/dL(calc) ALBUMIN/GLOBULIN RATIO (test code = 1759-0) 1.8 (calc) BILIRUBIN, TOTAL (test code = 1975-2) 0.7 mg/dL ALKALINE PHOSPHATASE (test code = 6768-6) 75 U/L AST (test code = 1920-8) 10 U/L ALT (test code = 1742-6) 13 U/L Tha HamptonLIPID [id number] 00:00:00* Test Item Value Reference Range Interpretation Comme nts CHOLESTEROL, TOTAL (test cod e = 2093-3) 153 mg/dL HDL CHOLESTEROL (test code = 2085-9) 38 mg/dL TRIGLYCERIDES (test code = 2571-8) 153 mg/dL LDL-CHOLESTEROL (test code = 98942-2) 90 mg/dL(calc) CHOL/HDLC RATIO (test code = 9830-1) 4.0 (calc) NON HDL CHOLESTEROL (test code = 79451-9) 115 mg/dL(calc) Tha Flaherty AustinRPR (MONITOR) W/REFL [id number] 00:00:00* Test Item Value Reference Range Interpretation Comme nts RPR (MONITOR) W/REFL TITER ( test code = 10429-0) NON-REACTIVE Tha HamptonCHLAMYDIA/N. GONORRHOEAE RNA, [id number] 00:00:00* Test Item Value Reference Range Interpretation Comme rajat CHLAMYDIA TRACHOMATIS RNA, T MA, UROGENITAL (test code = 40954-5) NOT DETECTED NEISSERIA GONORRHOEAE RNA, T MA, UROGENITAL (test code = 92620-2) NOT DETECTED Tha HamptonHIV 1/2 ANTIGEN/ANTIBODY,FOURTH GENERATION [id number] 00:00:00* Test Item Value Reference Range Interpretation Comme rajat HIV AG/AB, 4TH GEN (test cod e = 68279-7) NON-REACTIVE Tha HamptonHEPATITIS PANEL, ACUTE W/REFLEX TO [id number] 00:00:00* Test Item Value Reference Range Interpretation Comme nts HEPATITIS A IGM (test code = 29604-7) NON-REACTIVE HEPATITIS B SURFACE ANTIGEN (test code = 5196-1) NON-REACTIVE CONFIRMATION (test code = 7905-3) DNR HEPATITIS B CORE ANTIBODY (I GM) (test code = 34912-0) NON-REACTIVE HEPATITIS C ANTIBODY (test c ode = 31146-4) NON-REACTIVE Tha HamptonCOMPREHENSIVE METABOLIC [id number] 00:00:00* Test Item Value Reference Range Interpretation Comme nts GLUCOSE (test code = 2345-7) 84 mg/dL UREA NITROGEN (BUN) (test code = 3094-0) 13 mg/dL CREATININE (test code = 2160-0) 0.81 mg/dL EGFR (test code = 29337-9) 99 mL/min/1.73m2 BUN/CREATININE RATIO (test code = 3097-3) SEE NOTE: (calc) SODIUM (test code = 2951-2) 139 mmol/L POTASSIUM (test code = 2823-3) 4.0 mmol/L CHLORIDE (test code = 2075-0) 106 mmol/L CARBON DIOXIDE (test code = 8-9) 25 mmol/L CALCIUM (test code = 05946-7) 9.1 mg/dL PROTEIN, TOTAL (test code = 2885-2) 6.7 g/dL ALBUMIN (test code = 1751-7) 4.3 g/dL GLOBULIN (test code = 36042-2) 2.4 g/dL(calc) ALBUMIN/GLOBULIN RATIO (test code = 1759-0) 1.8 (calc) BILIRUBIN, TOTAL (test code = 1975-2) 0.7 mg/dL ALKALINE PHOSPHATASE (test code = 6768-6) 75 U/L AST (test code = 1920-8) 10 U/L ALT (test code = 1742-6) 13 U/L Tha HamptonLIPID [id number] 00:00:00* Test Item Value Reference Range Interpretation Comme nts CHOLESTEROL, TOTAL (test cod e = 2093-3) 153 mg/dL HDL CHOLESTEROL (test code = 2085-9) 38 mg/dL TRIGLYCERIDES (test code = 2571-8) 153 mg/dL LDL-CHOLESTEROL (test code = 65224-3) 90 mg/dL(calc) CHOL/HDLC RATIO (test code = 9830-1) 4.0 (calc) NON HDL CHOLESTEROL (test code = 36654-1) 115 mg/dL(calc) Tha Flaherty AustinRPR (MONITOR) W/REFL [id number] 00:00:00* Test Item Value Reference Range Interpretation Comme nts RPR (MONITOR) W/REFL TITER ( test code = 02202-6) NON-REACTIVE Tha HamptonIron and Iron binding capacity panel - Serum or [id number] 00:00:00* Test Item Value Reference Range Interpretation Comme nts Iron [Mass/volume] in Serum or Plasma (test code = 2498-4) 30 mcg/dL 40-190 L Iron binding capacity [Mass/volume] in Serum or Plasma (test code = 2500-7) 382 mcg/dL (calc) 250-450 Iron saturation [Mass Fraction] in Serum or Plasma (test code = 2502-3) 8 % (calc) 16-45 L [facility] W Auto Differential panel - [id number] 00:00:00* Test Item Value Reference Range Interpretation Comme nts Leukocytes [#/volume] in Blood by Automated count (test code = 6690-2) 9.2 thousand/uL 3.8-10.8 Erythrocytes [#/volume] in Blood by Automated count (test code = 789-8) 4.67 million/uL 3.80-5.10 Hemoglobin [Mass/volume] in Blood (test code = 718-7) 12.6 g/dL 11.7-15.5 Hematocrit [Volume Fraction] of Blood by Automated count (test code = 4544-3) 39.3 % 35.0-45.0 Erythrocyte mean corpuscular volume [Entitic volume] by Automated count (test code = 787-2) 84.2 fL 80.0-100.0 Erythrocyte mean corpuscular hemoglobin [Entitic mass] by Automated count (test code = 785-6) 27.0 pg 27.0-33.0 Erythrocyte mean corpuscular hemoglobin concentration [Mass/volume] by Automated count (test code = 786-4) 32.1 g/dL 32.0-36.0 Erythrocyte distribution width [Ratio] by Automated count (test code = 788-0) 12.5 % 11.0-15.0 Platelets [#/volume] in Bloo d by Automated count (test code = 777-3) 353 thousand/uL 140-400 Platelet [Entitic mean volume] in Blood by Julius (test code = 776-5) 9.1 fL 7.5-12.5 Neutrophils [#/volume] in Blood by Automated count (test code = 751-8) 6256 cells/uL 8664-7334 Lymphocytes [#/volume] in Blood by Automated count (test code = 731-0) 2300 cells/uL 850-3900 Monocytes [#/volume] in Bloo d by Automated count (test code = 742-7) 432 cells/uL 200-950 Eosinophils [#/volume] in Blood by Automated count (test code = 711-2) 175 cells/uL 15-500 Basophils [#/volume] in Bloo d by Automated count (test code = 704-7) 37 cells/uL 0-200 Neutrophils/Leukocytes in Blood by Automated count (test code = 770-8) 68 % Lymphocytes/100 leukocytes i n Blood by Automated count (test code = 736-9) 25.0 % Monocytes/Leukocytes in Bloo d by Automated count (test code = 5905-5) 4.7 % Eosinophils/Leukocytes in Blood by Automated count (test code = 713-8) 1.9 % Basophils/100 leukocytes in Blood by Automated count (test code = 706-2) 0.4 % [facility] MedicalFerritin [Mass/volume] in Serum or [id number] 00:00:00* Test Item Value Reference Range Interpretation Comme nts Ferritin [Mass/volume] in Se rum or Plasma (test code = 2276-4) 10 NG/mL 16-154 L [facility] MedicalPOCT [id number] 20:53:00* Test Item Value Reference Range Interpretation Comme nts POCT PREG (test code = 1605) Negative On board controls acceptable with C Line (test code = 3574) Yes POCT PREG LOT # (test code = 3575) HCG [id number] POCT PREG TEST DATE (test code = 3576) 12/31/2025 Lab Interpretation (test cod e = 41513-0) Normal [facility] [id number] 18:04:00* Test Item Value Reference Range Interpretation Comme nts POCT PREG (test code = 1605) Negative On board controls acceptable with C Line (test code = 3574) Yes POCT PREG LOT # (test code = 3575) POCT PREG TEST DATE ( test code = 3576) Lab Interpretation (test cod e = 34915-6) Normal [facility] [id number] 18:05:00* Test Item Value Reference Range Interpretation Comme nts POCT PREG (test code = 1605) Negative On board controls acceptable with C Line (test code = 3574) Yes POCT PREG LOT # (test code = 3575) POCT PREG TEST DATE ( test code = 3576) Lab Interpretation (test cod e = 62834-1) Normal [facility] Pelvis complete with gnjnlycqtzbq5527-69-29 23:20:43EXAM: US PELVIS COMPLETE WITH TRANSVAGINAL HISTORY: 33 years-old Female; pelvic pain . LMP = 06/27/2024 TECHNIQUE: Transabdominal and transvaginal ultrasound imaging and colorDoppler evaluation of the pelvis was performed. [place] images wereobtained for the record. COMPARISON: 09/13/2017 FINDINGS: Uterus: The uterus is normal in size and measures 9.9 x 4.5 x 6.3 cm. Themyometrium appears homogenous. No focal lesion is detected. The endometriumis normal in appearance and the thickness measures 1.0 cm. The cervix isunremarkable. Right Adnexa:Ovary: The right ovary measures 4.9 x 5.1 x 3.8cm, with a volume of 43.7ml. A 3.8 complex cyst is noted. Left Adnexa:Ovary: The left ovary measures 4.1 x 4.2 x 3.1 cm, with a volume of 27.9ml. ?A 3.0 cm complex cyst is noted. Cul-de-sac: No free fluid is present.[facility]. METABOLIC PANEL (28454)2023-01-11 19:40:16* Test Item Value Reference Range Interpretation Comme nts NA (test code = 7985367676) 141 mmol/L 135-145 K (test code = 4248473922) 3.6 mmol/L 3.5-5.0 CL (test code = 7682345530) 106 mmol/L 98-108 CO2 TOTAL (test code = 5866149388) 29 mmol/L 23-31 AGAP (test code = 0655851689) 6 2-16 BUN (test code = 9967395604) 12 mg/dL 7-23 GLUCOSE (test code = 5818943185) 100 mg/dL 70-110 CREATININE (test code = 4412541432) 0.64 mg/dL 0.50-1.04 TOTAL BILI (test code = 2858375378) 0.7 mg/dL 0.1-1.1 CALCIUM (test code = 6702686005) 9.2 mg/dL 8.6-10.6 T PROTEIN (test code = 7678960112) 7.1 g/dL 6.3-8.2 ALBUMIN (test code = 8246566090) 4.1 g/dL 3.5-5.0 ALK PHOS (test code = 8668674116) 67 U/L 34-122 ALTv (test code = 1742-6) 18 U/L 5-35 AST(SGOT) (test code = 0634192190) 20 U/L 13-40 eGFR (test code = 95457-1) 121.3 mL/min/1.73m2 CKD-EPI eGFR (20 21). Assuming creatinine has been stable day-to-day for at least three months, the eGFR indicates Category G1 (>= 90 mL/min/1.73 m2) [facility] WITH [id number] 19:29:18* Test Item Value Reference Range Interpretation Comme nts WBC (test code = 6690-2) 7.78 See_Comment [Automated [place]] The system which generated this result transmitted reference range: 4.30 - 11.10 10*3/?L. The reference range was not used to interpret this result as normal/abnormal. RBC (test code = 789-8) 4.53 See_Comment [Automated [place]] The system which generated this result transmitted [...] 33.2 g/dL 31.6-35.1 RDW-SD (test code = 99363-0) 38.3 fL 39.0-49.9 L RDW-CV (test code = 788-0) 12.6 % 12.0-15.5 PLT (test code = 777-3) 345 See_Comment [Automated messa ge] The system which generated this result transmitted reference range: 166 - 358 10*3/?L. The reference range was not used to interpret this result as normal/abnormal. MPV (test code = 79457-4) 8.6 fL 9.5-12.9 L NRBC/100 WBC (test code = 8351926124) 0.0 See_Comment [Automated [employer]] The system which generated this result transmitted reference range: 0.0 - 10.0 /100 WBCs. The reference range was not used to interpret this result as normal/abnormal. NRBC x10^3 (test code = 7787149514) See_Comment [Automated [employer]] The system which generated this result transmitted reference range: 10*3/?L. The reference range was not used to interpret this result as normal/abnormal. GRAN MAT (NEUT) % (test code = 770-8) 70.2 % IMM GRAN % (test code = 1257743943) 0.40 % LYMPH % (test code = 736-9) 21.9 % MONO % (test code = 5905-5) 4.4 % EOS % (test code = 713-8) 2.6 % BASO % (test code = 706-2) 0.5 % GRAN MAT x10^3(ANC) (test code = 9203282522) 5.47 10*3/uL 1.88-7.09 IMM GRAN x10^3 (test code = 3080441266) 0.03 10*3/uL 0.00-0.06 LYMPH x10^3 (test code = 731-0) 1.70 10*3/uL 1.32-3.29 MONO x10^3 (test code = 742-7) 0.34 10*3/uL 0.33-0.92 EOS x10^3 (test code = 711-2) 0.20 10*3/uL 0.03-0.39 BASO x10^3 (test code = 704-7) 0.04 10*3/uL 0.01-0.07 Lab Interpretation (test code = 23224-0) [id number]:39:00* Test Item Value Reference Range Interpretation Comme nts POCT PREG (test code = 1605) Negative On board controls acceptable with C Line (test code = 3574) Yes POCT PREG LOT # (test code = 3575) [id number] POCT PREG TEST DATE ( test code = 3576) 04/15/2024 Lab Interpretation (test cod e = 27464-4) Normal [facility] ([facility]OVID-[facility] by RT-PCR (HIGH RISK) 2020-07-28 00:00:00* Test Item Value Reference Range Interpretation Comme nts SARS-CoV-2 INTERPRETATION (t est code = 61586) NEGATIVE SOURCE (test code = 22515) NOT SPECIFIED Tha Flaherty DfntqzHFWC-EyF-6 (COVID-19) by RT-PCR (HIGH RISK)2020-07-28 00:00:00* Test Item Value Reference Range Interpretation Comme nts SARS-CoV-2 INTERPRETATION (t est code = 21176) NEGATIVE SOURCE (test code = 30313) NOT SPECIFIED Tha Flaherty HmeaokSJMJ-VqR-8 (COVID-19) by RT-PCR (HIGH RISK)2020-07-28 00:00:00* Test Item Value Reference Range Interpretation Comme nts SARS-CoV-2 INTERPRETATION (t est code = 78240) NEGATIVE SOURCE (test code = 81440) NOT SPECIFIED Tha Flaherty MemoPAP TEST, THINPREP, [id number] 00:00:00* Test Item Value Reference Range Interpretation Comme nts SOURCE: (test code = 8001) Cervical/Endocervical SLIDES: (test code = 8011) 1 LMP: (test code = 8021) 04/18/2020 SPECIMEN ADEQUACY: (test code = 83770) (NOTE) INTERPRETATION: (test code = 58325) NILM/NO EPITH. ABNORMALITY;SEE BELOW BROADCAST MAINTENANCE ENGINEER: (test code = 8101) SALLY LORENZ(ASCP)IAC LOCATION: (test code = 61927) (NOTE) CPT: (test code = 8140) (NOTE) Tha HamptonHPV HIGH RISK WITH GENOTYPE, [id number] 00:00:00* Test Item Value Reference Range Interpretation Comme nts HPV HIGH RISK INTERP (test c ode = 20534) NEGATIVE HPV 16 (test code = 59608) NEGATIVE HPV 18 (test code = 08400) NEGATIVE HPV, HR, OTHER GENOTYPES (te st code = 31089) NEGATIVE Tha Flaherty AustinPAP TEST, THINPREP, [id number] 00:00:00* Test Item Value Reference Range Interpretation Comme nts SOURCE: (test code = 8001) Cervical/Endocervical SLIDES: (test code = 8011) 1 LMP: (test code = 8021) 04/18/2020 SPECIMEN ADEQUACY: (test code = 73195) (NOTE) INTERPRETATION: (test code = 02778) NILM/NO EPITH. ABNORMALITY;SEE BELOW BROADCAST MAINTENANCE ENGINEER: (test code = 8101) LITZY PARCHER,CT(ASCP)IAC LOCATION: (test code = 93806) (NOTE) CPT: (test code = 8140) (NOTE) Tha Flaherty AustinHPV HIGH RISK WITH GENOTYPE, [id number] 00:00:00* Test Item Value Reference Range Interpretation Comme nts HPV HIGH RISK INTERP (test c ode = 14414) NEGATIVE HPV 16 (test code = 06874) NEGATIVE HPV 18 (test code = 08729) NEGATIVE HPV, HR, OTHER GENOTYPES (te st code = 54656) NEGATIVE Tha HamptonPAP TEST, THINPREP, [id number] 00:00:00* Test Item Value Reference Range Interpretation Comme nts SOURCE: (test code = 8001) Cervical/Endocervical SLIDES: (test code = 8011) 1 LMP: (test code = 8021) 04/18/2020 SPECIMEN ADEQUACY: (test code = 38912) (NOTE) INTERPRETATION: (test code = 08263) NILM/NO EPITH. ABNORMALITY;SEE BELOW BROADCAST MAINTENANCE ENGINEER: (test code = 8101) LITZY PARCHER,CT(ASCP)IAC LOCATION: (test code = 72994) (NOTE) CPT: (test code = 8140) (NOTE) Tha Flaherty AustinHPV HIGH RISK WITH GENOTYPE, [id number] 00:00:00* Test Item Value Reference Range Interpretation Comme nts HPV HIGH RISK INTERP (test c ode = 21877) NEGATIVE HPV 16 (test code = 85897) NEGATIVE HPV 18 (test code = 17756) NEGATIVE HPV, HR, OTHER GENOTYPES (te st code = 85137) NEGATIVE Tha Flaherty AustinGC AND CHLAMYDIA AMPLIFIED, [id number] 00:00:00* Test Item Value Reference Range Interpretation Comme nts GONORRHEA, TMA (test code = 86953) NEGATIVE CHLAMYDIA, TMA (test code = 94724) NEGATIVE Tha Flaherty AustinGC AND CHLAMYDIA AMPLIFIED, [id number] 00:00:00* Test Item Value Reference Range Interpretation Comme nts GONORRHEA, TMA (test code = 19296) NEGATIVE CHLAMYDIA, TMA (test code = 92169) NEGATIVE Tha HamptonGC AND CHLAMYDIA AMPLIFIED, [id number] 00:00:00* Test Item Value Reference Range Interpretation Comme nts GONORRHEA, TMA (test code = 77017) NEGATIVE CHLAMYDIA, TMA (test code = 87216) NEGATIVE Tha HamptonVAGINAL PATHOGENS DNA [id number] 00:00:00* Test Item Value Reference Range Interpretation Comme nts KRYSTLE SPECIES (test code = 50235) POSITIVE G. VAGINALIS (test code = 59211) NEGATIVE T. VAGINALIS (test code = 77969) NEGATIVE Tha HamptonVAGINAL PATHOGENS DNA [id number] 00:00:00* Test Item Value Reference Range Interpretation Comme nts KRYSTLE SPECIES (test code = 54364) POSITIVE G. VAGINALIS (test code = 75698) NEGATIVE T. VAGINALIS (test code = 42555) NEGATIVE Tha Flaherty AustinVAGINAL PATHOGENS DNA [id number] 00:00:00* Test Item Value Reference Range Interpretation Comme nts KRYSTLE SPECIES (test code = 23439) POSITIVE G. VAGINALIS (test code = 52208) NEGATIVE T. VAGINALIS (test code = 37034) NEGATIVE Tha [id number] 00:00:00* Test Item Value Reference Range Interpretation Comme nts TESTOSTERONE (test code = 2830) 48 NG/DL Tha HamptonVlpjogBFHJYWHOK0876-61-78 00:00:00* Test Item Value Reference Range Interpretation Comme nts ESTRADIOL (test code = 2505) 87.2 PG/ML Tha HamptonCBC W/AUTO [id number] 00:00:00* Test Item Value Reference Range Interpretation Comme nts WBC (test code = 1001) 9.6 K/UL RBC (test code = 1002) 4.87 M/UL HEMOGLOBIN (test code = 1003) 13.4 G/DL HEMATOCRIT (test code = 1004) 39.7 % MCV (test code = 1005) 81.5 fL MCH (test code = 1006) 27.5 PG MCHC (test code = 1007) 33.8 G/DL RDW (test code = 1038) 12.6 % NEUTROPHILS (test code = 1008) 70.1 % LYMPHOCYTES (test code = 1010) 21.7 % MONOCYTES (test code = 1011) 5.5 % EOSINOPHILS (test code = 1012) 2.1 % BASOPHILS (test code = 1013) 0.6 % PLATELET COUNT (test code = 1015) 370 K/UL Tha [id number] 00:00:00* Test Item Value Reference Range Interpretation Comme nts TSH, THIRD GENERATION (test code = 2821) 0.947 UIU/ML Tha HamptonFSH + LH [id number] 00:00:00* Test Item Value Reference Range Interpretation Comme nts FOLLICLE STIM HORMONE (test code = 2700) 6.3 IU/L LUTEINIZING HORMONE (test co de = 2776) 13.0 IU/L Tha Flaherty [id number] 00:00:00* Test Item Value Reference Range Interpretation Comme nts PROLACTIN (test code = 2800) 13.6 NG/ML Tha Flaherty [id number] 00:00:00* Test Item Value Reference Range Interpretation Comme nts TESTOSTERONE (test code = 2830) 48 NG/DL Tha Ham[id number] 00:00:00* Test Item Value Reference Range Interpretation Comme nts ESTRADIOL (test code = 2505) 87.2 PG/ML Tha HamptonCBC W/AUTO [id number] 00:00:00* Test Item Value Reference Range Interpretation Comme nts WBC (test code = 1001) 9.6 K/UL RBC (test code = 1002) 4.87 M/UL HEMOGLOBIN (test code = 1003) 13.4 G/DL HEMATOCRIT (test code = 1004) 39.7 % MCV (test code = 1005) 81.5 fL MCH (test code = 1006) 27.5 PG MCHC (test code = 1007) 33.8 G/DL RDW (test code = 1038) 12.6 % NEUTROPHILS (test code = 1008) 70.1 % LYMPHOCYTES (test code = 1010) 21.7 % MONOCYTES (test code = 1011) 5.5 % EOSINOPHILS (test code = 1012) 2.1 % BASOPHILS (test code = 1013) 0.6 % PLATELET COUNT (test code = 1015) 370 K/UL Tha [id number] 00:00:00* Test Item Value Reference Range Interpretation Comme nts TSH, THIRD GENERATION (test code = 2821) 0.947 UIU/ML Tha HamptonFSH + LH [id number] 00:00:00* Test Item Value Reference Range Interpretation Comme nts FOLLICLE STIM HORMONE (test code = 2700) 6.3 IU/L LUTEINIZING HORMONE (test co de = 2776) 13.0 IU/L Tha Ham[id number] 00:00:00* Test Item Value Reference Range Interpretation Comme nts PROLACTIN (test code = 2800) 13.6 NG/ML Tha Hampto[id number] 00:00:00* Test Item Value Reference Range Interpretation Comme nts TESTOSTERONE (test code = 2830) 48 NG/DL Tha Ham[id number] 00:00:00* Test Item Value Reference Range Interpretation Comme nts ESTRADIOL (test code = 2505) 87.2 PG/ML Tha HamptonCBC W/AUTO [id number] 00:00:00* Test Item Value Reference Range Interpretation Comme nts WBC (test code = 1001) 9.6 K/UL RBC (test code = 1002) 4.87 M/UL HEMOGLOBIN (test code = 1003) 13.4 G/DL HEMATOCRIT (test code = 1004) 39.7 % MCV (test code = 1005) 81.5 fL MCH (test code = 1006) 27.5 PG MCHC (test code = 1007) 33.8 G/DL RDW (test code = 1038) 12.6 % NEUTROPHILS (test code = 1008) 70.1 % LYMPHOCYTES (test code = 1010) 21.7 % MONOCYTES (test code = 1011) 5.5 % EOSINOPHILS (test code = 1012) 2.1 % BASOPHILS (test code = 1013) 0.6 % PLATELET COUNT (test code = 1015) 370 K/UL Tha [id number] 00:00:00* Test Item Value Reference Range Interpretation Comme nts TSH, THIRD GENERATION (test code = 2821) 0.947 UIU/ML Tha HamptonFSH + LH [id number] 00:00:00* Test Item Value Reference Range Interpretation Comme nts FOLLICLE STIM HORMONE (test code = 2700) 6.3 IU/L LUTEINIZING HORMONE (test co de = 2776) 13.0 IU/L Tha Ham[id number] 00:00:00* Test Item Value Reference Range Interpretation Comme nts PROLACTIN (test code = 2800) 13.6 NG/ML Tha Flaherty QlxvgoEHMF-TjA-5 (COVID-19) by RT-PCR (HIGH RISK)2020-03-07 00:00:00* Test Item Value Reference Range Interpretation Comme nts SARS-CoV-2 INTERPRETATION (test code = 29438) NEGATIVE SOURCE (test code = 44977) NASOPHARYNGEAL Tha Flaherty HhqiyhYZRW-DpS-7 (COVID-19) by RT-PCR (HIGH RISK)2020-03-07 00:00:00* Test Item Value Reference Range Interpretation Comme nts SARS-CoV-2 INTERPRETATION (test code = 95402) NEGATIVE SOURCE (test code = 81844) NASOPHARYNGEAL Tha Flaherty OtpwwsYWVF-SfT-1 (COVID-19) by RT-PCR (HIGH RISK)2020-03-07 00:00:00* Test Item Value Reference Range Interpretation Comme nts SARS-CoV-2 INTERPRETATION (test code = 86887) NEGATIVE SOURCE (test code = 23289) NASOPHARYNGEAL Tha Flaherty [id number] 00:00:00* Test Item Value Reference Range Interpretation Comme nts TSH, THIRD GENERATION (test code = 2821) 1.090 UIU/ML Tha Flaherty PaurkzIXI1989-45-46 00:00:00* Test Item Value Reference Range Interpretation Comme nts TSH, THIRD GENERATION (test code = 2821) 1.090 UIU/ML Tha HamptonXtexhaFHI1797-65-68 00:00:00* Test Item Value Reference Range Interpretation Comme nts TSH, THIRD GENERATION (test code = 2821) 1.090 UIU/ML Tha Hampton Notes Date/Time Note Provider Source Tha Hampton [facility]2025-08-01 00:00:00 Tha Hampton [facility]2025-07-30 00:00:00 Tha Florence [facility]2025-07-11 18:09:11 Pt given printed and verbal discharge instructions regarding pelvic pain, encouraged hydration. Prescriptions provided. Discussed tylenol #3 side affects and to avoid driving/operating machinery/or engaging in activities requiring alertness while taking. Pt verbalized understanding of instructions, pt awake alert oriented, resp reg unlabored, skin w/d, color appropriate for race, moves all ext well, pt encouraged to follow up with OBGYN. Advised to seek medical attention for new/prolonged/worsening of symptoms. Symptoms addressed. No adverse reaction to meds given in ER noted upon discharge. Pt leaving amb with steady gait, in no apparent distress. [facility]52:57 Patient states: "I'm having severe pelvic pain. I see a dr with [facility] Dr. Cárdenas. She told me if I have issues to come here. When I last had US I have on both ovaries 3 cm sized cyst. They labeled them as complex cysts. I don't know if they're getting bigger but she put me on depo on the 21 of July. But things are getting worse. On August 04 I had endometrial biopsy- there's no cancer" Elda Rivera [facility] CenterBpwvht4100-75-52 14:49:00 [facility] Emergency Department Note Patient Name: Saulo Judd Date of : 1990 33 year old female Treatment Room: [place] [address] Primary Care Physician: Rosa Rodriguez Patient Escorted by: Self [9] Mode of Arrival: Personal means [1] EMS Treatment Prior to ED Arrival: Travel and Exposure Screening: Symptoms Does patient have any of these symptoms?: (not recorded) Exposure Screening Has patient had contact with someone with a communicable disease in the last month?: (not recorded) Diseases exposed to:: (not recorded) Is Patient ?: (not recorded) Exposure Date: (not recorded) Chief Complaint: Chief Complaint Patient presents with Vaginal Problem History of Present Illness: History of Present Illness The patient presents from home for evaluation for pelvic pain and send present for the past several months. She reports she has been seen by her SURVEYOR HELPER and has a known history of ovarian cyst. She had a recent endometrial biopsy which was negative for cancer. She is believed to have endometriosis by her [employer] team and also has known PCOS. She received a Depo injection last month and reports she has had light vaginal bleeding for the past 2 weeks. She has been using ibuprofen at home for her pain and reports it is not helping. No dysuria hematuria. She denies being . She last had ibuprofen for her pain around 10:00 this morning. Here for evaluation. Past Medical History/Immunizations: Past Medical History: Diagnosis Date Abnormal maternal glucose tolerance, antepartum Anemia, unspecified 11/01/2012 Anxiety Breast disorder 2022 Left breast lump/drainage Depression 2011 not on meds Generalized anxiety disorder 11/01/2012 not on meds Gestational hypertension 09/13/2012 not on meds Missed menses 10/21/2013 paracytic infection PCOS (polycystic ovarian syndrome) 2010 not on meds STD (sexually transmitted disease) Chlamydia Allergies: Allergies Allergen Reactions Atorvastatin Hives Past Social History: Tobacco Use Former; Cigarettes: 02/02/2012 - 2020; Smoked an average of 0.5 packs/day for 8.0 years Smokeless Tobacco: Never used smokeless tobacco. Comments: quit last week Vaping Use Former; Counseling given Alcohol Use Yes. Comments: socially Drug Use No. Sexual Activity Sexually active; Partners: Male; Control/Protection: None. Comments: Last intercourse: 04/26/2024 Past Surgical History: Past Surgical History: Procedure Laterality Date SECTION 09/17/2012 Surgeon: Yang Pereira MD; Location: LABOR AND DELIVERY - ANNEX NON-STRESS TEST 09/14/2012 HYSTEROSCOPY 2015 INSERT CERVICAL DILATOR 09/17/2012 Review of Systems: Review of Systems Constitutional: Negative for chills and fever. Respiratory: Negative for cough and shortness of breath. Gastrointestinal: Negative for abdominal pain and vomiting. Genitourinary: Positive for pelvic pain. Negative for dysuria. Musculoskeletal: Negative for arthralgias, neck pain and neck stiffness. Skin: Negative for wound. Neurological: Negative for dizziness. Psychiatric/Behavioral: Negative for agitation. Endocrine: Negative for goiter. Physical Exam: Physical Exam ED Triage Vitals [08/15/24 1455] Weight 116.1 kg (256 lb) Actual or estimated Estimated by patient/family report Height 1.6 m (5' 3") BP (!) 136/93 Pulse 94 Resp 16 Temp 37.6 ?C (99.7 ?F) Temp source Oral SpO2 100 % Measured on Room air Physical Exam Vitals and nursing note reviewed. Constitutional: Appearance: Normal appearance. She is obese. HENT: Head: Normocephalic and atraumatic. Cardiovascular: Rate and Rhythm: Normal rate and regular rhythm. Pulses: Normal pulses. Pulmonary: Effort: Pulmonary effort is normal. No respiratory distress. Abdominal: General: There is no distension. Palpations: Abdomen is soft. There is no mass. Tenderness: There is no abdominal tenderness. There is no guarding or rebound. Hernia: No hernia is present. Musculoskeletal: General: Normal range of motion. Cervical back: Normal range of motion and neck supple. Skin: General: Skin is warm and dry. Neurological: General: No focal deficit present. Mental Status: She is alert and oriented to person, place, and time. Radiology: US PELVIS COMPLETE WITH TRANSVAGINAL Preliminary Result EXAM: US PELVIS COMPLETE WITH TRANSVAGINAL HISTORY: 33 years-old Female; Provided indication: vaginal pain and bleeding, h/o ovarian cysts b/l . LMP = 07/21/2024 TECHNIQUE: Transabdominal and transvaginal ultrasound imaging and color Doppler evaluation of the pelvis was performed. [place] images were obtained for the record. COMPARISON: US pelvis dated 07/18/2024 FINDINGS: Uterus: The uterus measures 9.2 x 4.8 x 5.5 cm. The myometrium appears homogenous. No focal lesion is detected. The endometrium is normal in appearance and the thickness measures 1.2 cm. Nabothian cysts are present at the cervix. Right Adnexa: Ovary: The right ovary measures 2.9 x 1.7 x 2.1 cm with a volume of 5.6 ml. The right ovary is unremarkable. The previously noted complex ovarian cyst is not identified. Left Adnexa: Ovary: The left ovary measures 3 x 2.6 x 2.2 cm with a volume of 8.7 ml. Small physiologic follicles are present, best seen on the cine images. The previously noted complex ovarian cyst is not identified. An anechoic, avascular structure measuring 1.1 x 0.8 x 0.8 cm is seen in the left adnexa and likely represents a paraovarian cyst. Cul-de-sac: No free fluid is present. IMPRESSION Resolution of previously noted bilateral complex ovarian cysts. No focal lesions in the uterus. Preliminary Report Dictated by Resident: Wenceslao Burk Lab Results: Lab Results POCT TEST - Normal Result Value Ref Range POCT PREG Negative On board controls acceptable with C Line Yes POCT PREG LOT # [id number] POCT PREG TEST DATE 12/31/2025 EKG: If EKG completed, see Procedure Note. Orders and Treatments: Orders Placed This Encounter Procedures US PELVIS COMPLETE WITH TRANSVAGINAL POCT TEST Orders Placed This Encounter Medications HYDROcodone-acetaminophen (NORCO 5) tablet 1 tablet ketorolac (TORADOL) injection 30 mg medroxyPROGESTERone (PROVERA) 10 mg tablet acetaminophen-codeine 300-30 mg tablet First Provider Eval: ED Events Date/Time Event User Comments 08/15/241452 Medical Screening Begins LAMAR SOUZA DO -- 08/15/24 145 First Provider Evaluation LAMAR SOUZA DO -- ED COURSE Diagnosis/Impression as of 08/15/24 1749 Pelvic pain Results Procedures: Procedures MDM: Assessment & Plan Medical Decision Making The patient presents from home for evaluation for pelvic pain and send present for the past several months. She reports she has been seen by her SURVEYOR HELPER and has a known history of ovarian cyst. She had a recent endometrial biopsy which was negative for cancer. She is believed to have endometriosis by her [employer] team and also has known PCOS. She received a Depo injection last month and reports she has had light vaginal bleeding for the past 2 weeks. She has been using ibuprofen at home for her pain and reports it is not helping. No dysuria hematuria. She denies being . She last had ibuprofen for her pain around 10:00 this morning. Vital signs are stable in the ER. The patient is obese. Her abdomen is soft and nontender. Will check a test and obtain a transvaginal ultrasound today for possible change in size of her known ovarian cyst. Also give the patient pain medication. Anticipate discharge home later. 1748 - the patient is doing well here in the ER. Her test is negative. The transvaginal ultrasound shows resolution of her previously found ovarian cyst. Suspect endometriosis as a cause of her pain. She remained stable here in the ER and is okay for discharge home with PCP follow-up in 1 week. Problems Addressed: Pelvic pain: acute illness or injury Amount and/or Complexity of Data Reviewed Labs: ordered. Decision-making details documented in ED Course. Radiology: ordered and independent interpretation performed. Decision-making details documented in ED Course. Risk OTC drugs. Prescription drug management. Flowsheet Documentation: Scoring Tools: No data recorded Disposition/Condition: ED Disposition ED Disposition Discharge Condition Stable Comment -- Discharge Medications: Patient's Medications START taking these medications ACETAMINOPHEN-CODEINE 300-30 MG TABLET Take 1 tablet by mouth every 4 hours as needed for Pain (scale 1-3) for up to 7 days. Indications: acute pain MEDROXYPROGESTERONE (PROVERA) 10 MG TABLET Take 1 tablet by mouth in the morning and 1 tablet in the evening. Do all this for 7 days. CONTINUE taking these medications which have NOT CHANGED No medications on file START taking Modified Medications as Prescribed No medications on file STOP taking these medications No medications on file Follow-up: Electronically signed by: Lamar Souza DO 08/15/241748 [facility] [id number] 13:30:00 Addended by: SHELBI HERNANDEZ on: 08/04/2024 06:23 PM Modules accepted: Level of Service [facility]2025-01-24 16:35:08 Pt identified by name and . Pt reschedule appt due to new job. Pt scheduled for lab appointment. Pt confirmed date & time. [id number] 17:22:28 Chart reviewed. Labs ordered for upcoming Nephrology appointment per guidelines. MyChart message and/or letter sent to patient as an appointment reminder. [id number] 17:21:37 Chart reviewed. Labs ordered for upcoming Nephrology appointment per guidelines. MyChart message and/or letter sent to patient as an appointment reminder. [facility]
[2024-10-01] MEDS ORDERED: NA CHLORIDE 0.9% 1,000 ML ONE (09:02)
[2024-10-01] MEDS ORDERED: ONDANSETRON 4 MG/2 ML VIAL ONE (09:06)
[2024-10-01 09:29] LABS: Absolute Lymphocytes (CBC) 2.5 K/uL (0.7-4.9); Hematocrit 40.1 % (36.0-45.0); Hemoglobin 13.4 g/dL (12.0-15.0); MCH 26.5 pg (27.0-35.0); MCHC 33.4 g/dL (32.0-36.0); MCV 79.5 fL (80-100); MPV 7.2 fL (7.6-11.3); Nucleated RBC Absolute Count 0.0 (0-0); Nucleated Red Blood Cells % 0.1 % (0-0); RBC Red Blood Cell Count 5.05 M/uL (3.86-4.86); White Blood Count 8.80 thou/uL (4.3-10.9)
[2024-10-01 09:39] LABS: ALT/SGPT 25 U/L (13-56); Albumin 3.5 g/dL (3.4-5.0); Albumin/Globulin Ratio 1.0 (1.1-1.8); Alkaline Phosphatase 73 U/L (45-117); Anion Gap 6.5 mEq/L (5.0-15.0); BUN Blood Urea Nitrogen 15 mg/dL (7-18); Globulin 3.4 g/dL (2.3-3.5); Glucose Level 105 mg/dL (74-106); Lipase 33 U/L (13-75); Potassium 3.5 mEq/L (3.5-5.1)
[2024-10-01 09:40] LABS: AST/SGOT < 10 U/L (15-37)
[2024-10-01 10:24] LABS: Urine Microscopic Reflex YN NO UMIC
[2024-10-01] MEDS ORDERED: PROMETHAZINE INJ 25 MG/ML AMP ONE (11:44)
[2024-10-01] MEDS ORDERED: NA CHLORIDE 0.9% 250 ML ONE (11:45)
--- NOTE | 2024-10-01 12:31 | RAD REPORT ---
EXAMINATION: CT Abdomen Pelvis W Contrast CLINICAL INDICATION: Female, 33 years old. ABD PAIN TECHNIQUE: CT abdomen and pelvis was performed, after the administration of IV contrast[facility] Axial, sagittal and coronal reconstructions were obtained. One or more of the following dose reduction techniques were used: Automated exposure control, adjustment of the mA and k V according to patient size, and iterative reconstruction. Unless otherwise specified, incidental findings do not require dedicated imaging follow-up. COMPARISON: 07/19/2024 FINDINGS: LOWER CHEST: The visualized lung bases are clear. LIVER: Normal in size and contour. No focal lesion. BILIARY SYSTEM: No suspicious abnormalities. Small fold at the gallbladder neck. SPLEEN: Normal size. No focal lesion. PANCREAS: No mass, ductal dilation, or martha-pancreatic fluid. ADRENALS: Normal; no mass. KIDNEYS: Normal size and contour. No hydronephrosis. URINARY BLADDER: Unremarkable. GASTROINTESTINAL TRACT: No evidence of free air, significant intra-abdominal free fluid, bowel obstru ction or abscess. APPENDIX: Normal appendix. LYMPH NODES: No lymphadenopathy. MUSCULOSKELETAL: No acute or suspicious osseous abnormality. ADDITIONAL FINDINGS: Fluid distention of the endometrial cavity near the fundus measuring 1.3 cm in t hickness. IMPRESSION: Nonspecific fluid tension the endometrial cavity, please correlate for menstrual phase. No other acute or concerning abnormalities seen in the abdomen or pelvis.
--- NOTE | 2024-10-01 13:08 | EDPHYS ---
Physician Documentation [facility] Name: Omayra Parra Age: 33 yrs Sex: Female : 1990 Arrival Date: 10/01/2024 Time: 08:41 Bed 20 Private MD: WADE Physician Jasbir Coleman HPI: 10/01 11:06 This 33 yrs old Female presents to ER via Ambulatory with complaints of Pain ren With Urination, Back Pain - LOWER. 11:06 The patient presents with pain that is acute, with no known mechanism of injury. The ren symptoms are located in the low back. 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 - Infectious Disease History:: Denies. - Social history:: Smoking status: Patient denies any tobacco usage or history of. ROS: 11:07 Constitutional: Negative for fever, chills, and weight loss, Eyes: Negative for injury, ren pain, redness, and discharge, ENT: Negative for injury, pain, and discharge, Neck: Negative for injury, pain, and swelling, Cardiovascular: Negative for chest pain, palpitations, and edema, Respiratory: Negative for shortness of breath, cough, wheezing, and pleuritic chest pain, : Negative for injury, bleeding, discharge, and swelling, MS/Extremity: Negative for injury and deformity, Skin: Negative for injury, rash, and discoloration, Neuro: Negative for headache, weakness, numbness, tingling, and seizure, Psych: Negative for depression, anxiety, suicide ideation, homicidal ideation, and hallucinations, Allergy/Immunology: Negative for hives, rash, and allergies, Endocrine: Negative for neck swelling, polydipsia, polyuria, polyphagia, and marked weight changes, Hematologic/Lymphatic: Negative for swollen nodes, abnormal bleeding, and unusual bruising, 11:07 Abdomen/GI: Positive for abdominal pain, abdominal cramps, abdominal distension, of the suprapubic area, 11:07 Back: Positive for pain at rest, 11:07 : Positive for burning with urination, Exam: 11:07 Constitutional: This is a well developed, well nourished patient who is awake, alert, ren and in no acute distress. Head/Face: Normocephalic, atraumatic. Eyes: Pupils equal round and reactive to light, extra-ocular motions intact. Lids and lashes normal. Conjunctiva and sclera are non-icteric and not injected. Cornea within normal limits. Periorbital areas with no swelling, redness, or edema. ENT: Nares patent. No nasal discharge, no septal abnormalities noted. Tympanic membranes are normal and external auditory canals are clear. Oropharynx with no redness, swelling, or masses, exudates, or evidence of obstruction, uvula midline. Mucous membranes moist. Neck: Trachea midline, no thyromegaly or masses palpated, and no cervical lymphadenopathy. Supple, full range of motion without nuchal rigidity, or vertebral point tenderness. No Meningismus. Chest/axilla: Normal chest wall appearance and motion. Nontender with no deformity. No lesions are appreciated. Cardiovascular: Regular rate and rhythm with a normal S1 and S2. No gallops, murmurs, or rubs. Normal PMI, no JVD. No pulse deficits. Respiratory: Lungs have equal breath sounds bilaterally, clear to auscultation and percussion. No rales, rhonchi or wheezes noted. No increased work of breathing, no retractions or nasal flaring. Back: No spinal tenderness. No costovertebral tenderness. Full range of motion. Skin: Warm, dry with normal turgor. Normal color with no rashes, no lesions, and no evidence of cellulitis. MS/ Extremity: Pulses equal, no cyanosis. Neurovascular intact. Full, normal range of motion., bilateral aka Neuro: Awake and alert, GCS 15, oriented to person, place, time, and situation. Cranial nerves II-XII grossly intact. Motor strength 5/5 in all extremities. Sensory grossly intact. Cerebellar exam normal. Normal gait. Psych: Awake, alert, with orientation to person, place and time. Behavior, mood, and affect are within normal limits. 11:07 Abdomen/GI: Inspection: distension, that is mild, Bowel sounds: normal, Palpation: abdomen is soft and non-tender, Liver: no appreciated palpable abnormalities, Hernia: not appreciated, Vital Signs: 09:01 BP 147 / 109; Pulse 75; Resp 16; Temp 98.8; Pulse Ox 100% ; Weight 115 kg; Height 5 ft. jl7 3 in. ; 10:55 BP 126 / 87; Pulse 74; Resp 16; Pulse Ox 100% on R/A; cm10 13:35 BP 123 / 61; Pulse 71; Resp 15; Pulse Ox 100% on R/A; cm10 09:01 Body Mass Index 44.91 (115.00 kg, 160.02 cm) 7 MDM: 08:47 Medical Screening Exam initiated ren 11:09 Differential diagnosis: menometrorrhagia, menorrhea, Neoplasm nonspecific abdominal ren pain, Obesity Pyelonephritis Renal Infarction ruptured disc, Scoliosis Ureterolithiasis pelvic inflammatory disease, urinary tract infection, vaginosis, vertebral fracture. Data reviewed: vital signs, nurses notes, lab test result(s), radiologic studies, CT scan. Consideration of Admission/Observation Escalation of care including admission/observation considered. I considered the following discharge prescriptions or medication management in the emergency department Medications were administered in the Emergency Department. See MAR. Independent interpretation of the following test(s) in the Emergency Department CT Scan: My interpretation is ct abd / pelvis. Test considered but Not performed: Ultrasound no abd usg. Care significantly affected by the following chronic conditions: anxiety, high chlesterol, pcod, cellulitis. 10/01 08:48 Order name: CBC with Diff; Complete Time: 10:43 [facility] 10/01 08:48 Order name: CMP; Complete Time: 10:43 [facility] 10/01 08:48 Order name: Lipase; Complete Time: 10:43 [facility] 10/01 08:48 Order name: Test, Urine; Complete Time: 10:43 [facility] 10/01 08:48 Order name: UA Rfx Bunny Cult if indicated; Complete Time: 10:43 [facility] 10/01 08:48 Order name: CT Abd/Pelvis - IV Contrast Only; Complete Time: 13:06 [facility] 10/01 08:48 Order name: IV Saline Lock; Complete Time: 09:11 [facility] 10/01 08:48 Order name: Labs collected and sent; Complete Time: 09:11 [facility] Administered Medications: 09:14 Drug: NS 0.9% IV 1000 ml IV at 1 bolus Per protocol; to be given as a bolus over 60 cm10 minutes Route: IV; Rate: 1 bolus; Site: right antecubital; 10:15 Follow up: Response: No adverse reaction; IV Status: Completed infusion; IV Intake: cm10 1000ml 09:17 Drug: Ondansetron IVP 4 mg IVP once; over 2 minutes Route: IVP; Site: right antecubital;cm10 10:15 Follow up: Response: No adverse reaction cm10 10:51 Not Given (Physician Discretion): rocephin1 grams IV at per protocol once; Given slow cm10 IV push per pharmacy instructions 11:57 Drug: promethazine 25 mg IV at per protocol once Route: IV; Rate: per protocol; Site: cm10 right antecubital; 12:27 Follow up: Response: No adverse reaction; IV Status: Completed infusion cm10 11:57 Not Given (Duplicate Order): ns 0.9% 250 ml IV at per protocol once; to be given as a cm10 bolus over 30 minutes 13:35 Drug: Doxycycline PO 200 mg PO once Route: PO; cm10 13:35 Follow up: Response: Medication administered at discharge. cm10 Disposition Summary: 10/01/24 13:07 Discharge Ordered Notes: Location: Home ren Problem: new ren Symptoms: have improved ren Condition: Stable ren Diagnosis - Dysuria ren - Low back pain ren - Abdominal tenderness ren Followup: ren - With: Private Physician - When: 2 - 3 days - Reason: Recheck today's complaints, Continuance of care, Re-evaluation by your physician Followup: ren - With: Barbie Moore MD - When: 2 - 3 days - Reason: Recheck today's complaints, Re-evaluation by your physician Discharge Instructions: - Discharge Summary Sheet ren - Abdominal Pain, Adult ren - Dysuria ren - Musculoskeletal Pain ren - Abdominal Pain, Adult, [id number] [facility] Forms: - Medication Reconciliation Form ren - Antibiotic Education ren - Prescription Opioid Use ren - Patient Portal Instructions [facility] - Leadership Thank You Letter [facility] Prescriptions: - Doxycycline Hyclate 100 mg Oral tablet - take 1 tablet ORAL route every 12 hours; 14 tablet; Refills: 0, Product ren Selection Permitted - Diclofenac Sodium 75 mg Oral tablet, delayed release (enteric coated) - take 1 tablet ORAL route 2 times per day; 20 tablet; Refills: 0, Product ren Selection Permitted - Tylenol-Codeine #3 300mg-30mg Oral tablet - take 2 tablets ORAL route every 6 hours As needed; 16 tablet; Refills: 0, ren Product Selection Permitted Signatures: Dispatcher [employer] Jasbir Nguyen, Francisco Pedersen MD, cha, RN RN jl7 Cassi Gilbert RN RN cm10 Jossue Wade, INDUSTRIAL HYGIENIST-C INDUSTRIAL HYGIENIST-Cdr5
--- NOTE | 2024-10-01 13:08 | ER ---
Nurse's Notes [facility] Name: Omayra Parra Age: 33 yrs Sex: Female : 1990 Arrival Date: 10/01/2024 Time: 08:41 Bed 20 Private MD: Diagnosis: Dysuria;Low back pain;Abdominal tenderness Presentation: 10/01 09:01 Chief complaint: Patient states: pain with urination, hysteroscopy ablation 09/26/24. jl7 Coronavirus screen: At this time, the client does not indicate any symptoms associated with coronavirus-19. Ebola Screen: No symptoms or risks identified at this time. Initial Sepsis Screen: Does the patient meet any 2 criteria? No. Patient's initial sepsis screen is negative. Does the patient have a suspected source of infection? No. Patient's initial sepsis screen is negative. Risk Assessment: Do you want to hurt yourself or someone else? Patient reports no desire to harm self or others. Onset of symptoms is unknown. 09:01 Method Of Arrival: Ambulatory jl7 09:01 Acuity: GAYE 3 jl7 Triage Assessment: 09:04 General: Appears in no apparent distress. uncomfortable, Behavior is calm, cooperative, jl7 appropriate for age. Pain: Complains of pain in with urination. Musculoskeletal: Swelling absent. 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 - Infectious Disease History:: Denies. - Social history:: Smoking status: Patient denies any tobacco usage or history of. Screenin:36 [facility] ED Fall Risk Assessment (Adult) History of falling in the last 3 months, cm10 including since admission No falls in past 3 months (0 pts) Confusion or Disorientation No (0 pts) Intoxicated or Sedated No (0 pts) Impaired Gait No (0 pts) Mobility Assist Device Used No (0 pt) Altered Elimination No (0 pt) Score/Fall Risk Level 0 - 2 = Low Risk Oriented to surroundings, Maintained a safe environment, Hourly rounding (assess needs \T\ fall precautionary measures) done. Abuse screen: Denies threats or abuse. Denies injuries from another. Nutritional screening: No deficits noted. Tuberculosis screening: No symptoms or risk factors identified. Assessment: 09:15 General: Appears in no apparent distress. uncomfortable, Behavior is calm, cooperative. cm10 Pain: Complains of pain in abdomen. Neuro: No deficits noted. Level of Consciousness is awake, alert, obeys commands, Oriented to person, place, time, situation, Appropriate for age. Respiratory: No deficits noted. Airway is patent Respiratory effort is even, unlabored, Respiratory pattern is regular, symmetrical. GI: Reports lower abdominal pain. 10:54 Reassessment: Patient appears in no apparent distress at this time. Patient and/or cm10 family updated on plan of care and expected duration. Pain level reassessed. Patient is alert, oriented x 3, equal unlabored respirations, skin warm/dry/pink. 13:06 Reassessment: Patient appears in no apparent distress at this time. Patient and/or cm10 family updated on plan of care and expected duration. Pain level reassessed. Patient is alert, oriented x 3, equal unlabored respirations, skin warm/dry/pink. Vital Signs: 09:01 BP 147 / 109; Pulse 75; Resp 16; Temp 98.8; Pulse Ox 100% ; Weight 115 kg; Height 5 ft. jl7 3 in. ; 10:55 BP 126 / 87; Pulse 74; Resp 16; Pulse Ox 100% on R/A; cm10 13:35 BP 123 / 61; Pulse 71; Resp 15; Pulse Ox 100% on R/A; cm10 09:01 Body Mass Index 44.91 (115.00 kg, 160.02 cm) jl7 ED Course: 08:45 Patient arrived in ED. cj3 08:47 Jasbir Coleman MD is Attending Physician. ren 08:57 Cassi Gilbert, SUSAN is Primary Nurse. cm10 09:04 Triage completed. jl7 09:04 Arm band placed on right wrist. jl7 09:11 CBC with Diff Sent. bc6 09:11 CMP Sent. bc6 09:11 Lipase Sent. bc6 09:11 Initial lab(s) drawn, by me, sent to lab. Inserted saline lock: 20 gauge in right bc6 antecubital area, using aseptic technique. Blood collected. Flushed with 10 mL NS. 09:15 Patient has correct armband on for positive identification. Bed in low position. Call cm10 light in reach. Side rails up X2. Provided Education on: ER process and procedures.. 12:01 CT Abd/Pelvis - IV Contrast Only In Process Unspecified. EDMS 13:07 Barbie Moore MD is Referral Physician. [facility] 13:36 No provider procedures requiring assistance completed. IV discontinued, intact, cm10 bleeding controlled, No redness/swelling at site. Pressure dressing applied. Administered Medications: 09:14 Drug: NS 0.9% IV 1000 ml IV at 1 bolus Per protocol; to be given as a bolus over 60 cm10 minutes Route: IV; Rate: 1 bolus; Site: right antecubital; 10:15 Follow up: Response: No adverse reaction; IV Status: Completed infusion; IV Intake: cm10 1000ml 09:17 Drug: Ondansetron IVP 4 mg IVP once; over 2 minutes Route: IVP; Site: right antecubital;cm10 10:15 Follow up: Response: No adverse reaction cm10 10:51 Not Given (Physician Discretion): rocephin1 grams IV at per protocol once; Given slow cm10 IV push per pharmacy instructions 11:57 Drug: promethazine 25 mg IV at per protocol once Route: IV; Rate: per protocol; Site: cm10 right antecubital; 12:27 Follow up: Response: No adverse reaction; IV Status: Completed infusion cm10 11:57 Not Given (Duplicate Order): ns 0.9% 250 ml IV at per protocol once; to be given as a cm10 bolus over 30 minutes 13:35 Drug: Doxycycline PO 200 mg PO once Route: PO; cm10 13:35 Follow up: Response: Medication administered at discharge. cm10 Medication: 13:37 VIS not applicable for this client. cm10 Intake: 10:15 IV: 1000ml; Total: 1000ml. cm10 Outcome: 13:07 Discharge ordered by . ren 13:37 Discharged to home ambulatory, with significant other, cm10 13:37 Condition: good 13:37 Discharge instructions given to patient, Instructed on discharge instructions, follow up and referral plans. medication usage, Demonstrated understanding of instructions, follow-up care, medications, Prescriptions given X 3, 13:40 Patient left the ED. cm10 Signatures: Dispatcher [employer] EDJasbir Morley MD MD cha Leal, Jahala RN RN jl7 Silva Balbuena6 Cassi Gilbert RN RN cm10 Nidhi Lieberman 3
[2024-10-01] MEDS ORDERED: DOXYCYCLINE 100 MG CAP PO ONE (13:20)
[2024-10-01 16:39] VITALS: O2SAT 100
[2024-10-01 16:42] VITALS: TEMP 98.8
[2024-10-01 16:43] VITALS: BP 123/61
== END 2024-10-01 13:40 | disposition home or self-care (01) ==
LOC: ER 08:41
DX: R30.0 Dysuria (principal); M54.50 Low back pain, unspecified; R10.819 Abdominal tenderness, unspecified site
CPT/HCPCS: 85025; 36415; 81025; 81003; 83690; 80053; 74177; Q9967; J2550; J2405; J7050; J7030